=== PATIENT | female | born 2005 | race Caucasian/White ===

== ENCOUNTER 2024-04-19 17:27 | Emergency (ER) | payer MEDICAID, SELFPAY ==
[2024-04-19 17:33] VITALS: BP 131/79; PULSE 94; TEMP 37.1; O2SAT 100; BMI 25.5
--- NOTE | 2024-04-19 17:59 | ED_ITS ---
HPI HPI - General Adult General Chief complaint: Urogenital-Female Stated complaint: UTI BACK PAIN VOMITING Time Seen by Provider: 04/19/24 17:33 Source: patient and family (mother) Mode of arrival: walk-in Limitations: no limitations History of Present Illness HPI narrative: 18-year-old female presents to the emergency department with mother with complaint of nausea and vomiting. She was diagnosed with a urinary tract infection a couple weeks ago, has been on a couple rounds of antibiotics. She was taken off the first 1 due to nausea and vomiting, but has continued to have symptoms with the new antibiotic. States that he did notice some microscopic blood in the urine. She does have some mid, lower abdominal discomfort, as well as, bilateral lower back discomfort. Denies any known fever, chills, dysuria. Quality:?As above Severity:?Moderate Timing:?As above Context: Normal setting and activity? Modifying factors:?As above Associated symptoms: As above Related Data Previous Rx's ?Medication ?Instructions ?Recorded ondansetron 4 mg disintegrating 4 mg PO Q8H PRN nausea and 04/19/24 tablet vomiting #14 tabs Allergies Allergy/AdvReac Type Severity Reaction Status Date / Time No Known Drug Allergies Allergy Verified 04/19/24 17:36 Opioid HPI Opioid Management Most Recent Opioid Data: No Data to Display Review of Systems ROS Narrative CONST: Denies any fever, chills RESP: Denies any shortness of breath CV: Denies any chest pain GI: +abd pain, nausea, vomiting.? Denies any diarrhea : + flank pain. Denies dysuria MS: + back pain SKIN: Denies any color change, rash NEURO: Denies numbness, weakness PSYCHIATRIC: Denies confusion, agitation PFSH PFSH Social History Little interest or pleasure in doing things: not at all Feeling down, depressed, or hopeless: not at all Exam Narrative Exam Narrative: Vital signs reviewed Nurses notes noted CONST: Nontoxic, well appearing, well nourished, in no distress.? No diaphoresis.?? HENT: normocephalic, atraumatic, moist mucous membrane, no abnormalities of the nose noted, hearing normal EYES: normal appearing conjunctiva, no apparent discharge bilat NECK: normal appearance CV: normal rate, regular rhythm, no murmur RESP: normal effort, speaking in complete sentences. Lung sounds clear and equal bilat.? No wheezes, rales, rhonchi GI: normal bowel sounds, soft, no distension, + mild tenderness over the suprapubic region without rebound or guarding. : + bilat CVA tenderness. MS: no edema, tenderness SKIN: no pallor NEURO: A&Ox 3, no focal findings PSYCH: normal mood, affect Constitutional Vital Signs, click to edit/add: Last Vital Signs Temp 98.7 F 04/19/24 17:33 Pulse 94 H 04/19/24 17:33 Resp 16 04/19/24 17:33 BP 131/79 04/19/24 17:33 Pulse Ox 100 04/19/24 17:33 O2 Del Method Room Air 04/19/24 17:33 Course Reevaluation(s) Reevaluation #1: On reevaluation, patient states she is feeling better after treatment. After review of patient's test results, she denies any pelvic pain, vaginal bleeding, cramping. Discussed with patient plan, disposition. She is agreeable. Time: 19:50 Vital Signs Vital signs: Vital Signs Temperature 98.7 F 04/19/24 17:33 Pulse Rate 94 H 04/19/24 17:33 Respiratory Rate 16 04/19/24 17:33 Blood Pressure 131/79 04/19/24 17:33 Pulse Oximetry 100 04/19/24 17:33 Oxygen Delivery Method Room Air 04/19/24 17:33 Temperature 98.7 F 04/19/24 17:33 Pulse Rate 94 H 04/19/24 17:33 Respiratory Rate 16 04/19/24 17:33 Blood Pressure 131/79 04/19/24 17:33 Pulse Oximetry 100 04/19/24 17:33 Oxygen Delivery Method Room Air 04/19/24 17:33 Medical Decision Making MDM Narrative Medical decision making narrative: This is a pleasant 18-year-old female who presented to the emergency department with complaint of nausea and vomiting. Recent history of urinary tract infection. He has been on a couple different antibiotics, but worries that the antibiotics are causing the symptoms. States she has a little discomfort to the mid, lower abdominal region, as well as to her lower back. Denies any fever, chills, vaginal bleeding, dysuria. On arrival, afebrile, vital signs are stable. Exam, nontoxic, well-appearing patient in no distress. Heart regular rate and rhythm. Lung sounds clear and equal bilaterally. She has mild mid, lower abdominal tenderness without rebound or guarding. She also has some mild low back, CVA tenderness. IV access established, labs drawn, Labs reveal no leukocytosis, anemia, thrombocytopenia, electrolyte imbalance, renal impairment. LFTs, magnesium unremarkable. test was positive, subsequent quant was 52,040. Urinalysis reveals no evidence of infection, hematuria. Favor early undetermined , nausea, vomiting At this time, ectopic less likely as she does not have any pelvic pain, cramping, vaginal bleeding UTI less likely based on urinalysis History and record review Discussion with independent historian: Mother Test and interventions Diagnostic testing considered but not performed: Ultrasound. Patient reports no pelvic pain, contractions, vaginal bleeding Disposition ? The patient was discharged. Plan: Patient will be discharged to home. Condition at time of disposition: stable Prescription for Zofran sent to her pharmacy Advised to follow up with her reconciliation analyst, Dr. Leung. Advised to return for any worsening and/or development of new, concerning signs or symptoms PLEASE NOTE: Portions of the medical record may have been produced using electronic item processor and may contain errors with respect to translation of words which may not have been identified prior to finalization of the chart. Medical Records Medical records reviewed: Yes I reviewed the patient's medical records Lab Data Lab results reviewed: Yes I reviewed the patient's lab results Labs: Lab Results 04/19/24 04/19/24 04/19/24 Range/Units 17:40 17:54 17:55 WBC 7.1 (4.0-11.0) 10^3/uL RBC 4.30 (4.20-5.40) 10^6/uL Hgb 12.5 (12.0-16.0) g/dL Hct 37.8 (36.0-48.0) % MCV 87.9 (81.0-99.0) fL MCH 29.1 (26.7-34.0) pg MCHC 33.1 (29.9-35.2) g/dL RDW 12.8 (11.0-15.0) % Plt Count 200 (150-450) 10^3/uL MPV 11.2 (9.5-13.5) fL Neut % (Auto) 63.0 (43.0-75.0) % Lymph % (Auto) 26.8 (20.5-60.0) % [place] % (Auto) 8.8 (1.7-12.0) % Eos % (Auto) 0.4 L (0.9-7.0) % Baso % (Auto) 0.7 (0.2-2.0) % Neut # (Auto) 4.5 (1.4-6.5) 10^3/uL Lymph # (Auto) 1.9 (1.2-3.8) 10^3/uL [place] # (Auto) 0.6 (0.3-0.8) 10^3/uL Eos # (Auto) 0.0 (0.0-0.7) 10^3/uL Baso # (Auto) 0.1 (0.0-0.1) 10^3/uL Abs Immat Gran (auto) 0.02 (0.00-0.03) 10^3/uL Imm/Tot Granulo (auto) 0.3 (0.0-0.5) % Sodium 140 (136-145) mmol/L Potassium 3.6 (3.5-5.1) mmol/L Chloride 104 (98-107) mmol/L Carbon Dioxide 26.5 (21.0-32.0) mmol/L Anion Gap 13.1 BUN 6.0 L (7.0-18.0) mg/dL Creatinine 0.77 (0.55-1.02) mg/dL Est GFR ( Amer) >60 (>=60 mL/min/1.73m^2) Est GFR (Non-Af Amer) >60 (>=60 mL/min/1.73m^2) BUN/Creatinine Ratio 7.8 Glucose 90 (74-106) mg/dL Calcium 8.3 L (8.5-10.1) mg/dL Magnesium 2.0 (1.8-2.4) mg/dL Total Bilirubin 1.5 H (0.2-1.0) mg/dL AST 14 L (15-37) U/L ALT 18 (14-59) U/L Alkaline Phosphatase 76 (46-116) U/L Total Protein 7.2 (6.4-8.2) g/dL Albumin 3.5 (3.4-5.0) g/dL Globulin 3.7 g/dL Albumin/Globulin Ratio 0.9 Serum HCG, Qual Positive A (NEGATIVE) HCG, Quant 32332 mIU/mL Urine Color Lt. yellow (YELLOW) Urine Clarity Clear (CLEAR) Urine pH 7.5 (5.0-9.0) Ur Specific [place] 1.015 (1.005-1.025) Urine Protein Negative (NEG/TRACE) mg/dL Urine Glucose (UA) Negative (NEGATIVE) mg/dL Urine Ketones 15 A (NEGATIVE) mg/dL Urine Occult Blood Negative (NEGATIVE) Urine Nitrite Negative (NEGATIVE) Urine Bilirubin Negative (NEGATIVE) Urine Urobilinogen 1.0 (0.2-1.0) EU/dL Ur Leukocyte Esterase Negative (NEGATIVE) Urine RBC None seen (0-2) #/HPF Urine WBC None seen (NONE SEEN) #/HPF Ur Squamous Epith Cells Rare (NONE/RARE) #/LPF Ur Transition Epith Cell Rare A (NONE SEEN) #/LPF Urine Crystals None seen (None Seen) #/HPF Urine Bacteria Trace A (NONE SEEN) #/HPF Urine Casts None seen (NONE SEEN) #/LPF Urine Mucus None seen (NONE SEEN) Ur Culture Indicated? No Discharge Plan Discharge Chief Complaint: Urogenital-Female Clinical Impression: Early stage of Nausea and vomiting Qualifiers: Vomiting type: unspecified Qualified Code(s): R11.2 - Nausea with vomiting, unspecified Patient Disposition: Home, Self-Care Time of Disposition Decision: 19:46 Condition: Good Mode of Transportation: Private Vehicle Prescriptions / Home Meds: New ondansetron 4 mg tablet,disintegrating 4 mg PO Q8H PRN (Reason: nausea and vomiting) Qty: 14 0RF Print Language: Maori Instructions: (ED), Acute Nausea and Vomiting (ED) Referrals: Benji Leung DO [Physician] - 1 week Discharge Date/Time: 04/19/24 19:56
[2024-04-19 18:00] LABS: Basophils Absolute Auto 0.1 10^3/uL (0.0-0.1); Basophils Percent Auto 0.7 % (0.2-2.0); Eosinophils Percent Auto 0.4 % (0.9-7.0); Hematocrit 37.8 % (36.0-48.0); Hemoglobin 12.5 g/dL (12.0-16.0); Immature Granulocytes Abs Auto 0.02 10^3/uL (0.00-0.03); Immature Granulocytes Pct Auto 0.3 % (0.0-0.5); Lymphocytes Absolute Auto 1.9 10^3/uL (1.2-3.8); Lymphocytes Percent Auto 26.8 % (20.5-60.0); Mean Corpuscular HGB Conc 33.1 g/dL (29.9-35.2); Mean Corpuscular Hemoglobin 29.1 pg (26.7-34.0); Mean Corpuscular Volume 87.9 fL (81.0-99.0); Mean Platelet Volume 11.2 fL (9.5-13.5); Monocytes Absolute Auto 0.6 10^3/uL (0.3-0.8); Monocytes Percent Auto 8.8 % (1.7-12.0); Neutrophils Absolute Auto 4.5 10^3/uL (1.4-6.5); Platelet Count 200 10^3/uL (150-450); Red Cell Distribution Width 12.8 % (11.0-15.0); White Blood Count 7.1 10^3/uL (4.0-11.0)
[2024-04-19] MEDS: 0.9 % SODIUM CHLORIDE 1,000 ML 999 ML IV (18:08)
[2024-04-19] MEDS: FAMOTIDINE/PF 20 MG/2 ML VIAL IV (18:10)
[2024-04-19] MEDS: ONDANSETRON PF 4 MG/2 ML VIAL IV (18:10)
[2024-04-19 18:14] LABS: Bilirubin Urine NEGATIVE (NEGATIVE); Blood Urine NEGATIVE (NEGATIVE); Clarity Urine CLEAR (CLEAR); Color Urine LT. YELLOW (YELLOW); Glucose Urine UA NEGATIVE (NEGATIVE); Ketones Urine 15 mg/dL (NEGATIVE); Leukocyte Esterase Urine NEGATIVE (NEGATIVE); Nitrite Urine NEGATIVE (NEGATIVE); Protein Urine NEGATIVE (NEG/TRACE); Specific Gravity Urine 1.015 (1.005-1.025); pH Urine 7.5 (5.0-9.0)
[2024-04-19 18:20] LABS: HCG Qualitative POSITIVE (NEGATIVE); Internal Control Within Normal Limits
[2024-04-19 18:23] LABS: Alanine Aminotransferase 18 U/L (14-59); Albumin Globulin Ratio 0.9; Albumin Level 3.5 g/dL (3.4-5.0); Alkaline Phosphatase 76 U/L (46-116); Anion Gap 13.1; Aspartate Amino Transferase 14 U/L (15-37); BUN Creatinine Ratio 7.8; Bilirubin Total 1.5 mg/dL (0.2-1.0); Calcium 8.3 mg/dL (8.5-10.1); Carbon Dioxide 26.5 mmol/L (21.0-32.0); Chloride 104 mmol/L (98-107); Estimated GFR (African America >60 (>=60 mL/min/1.73m^2); Estimated GFR (Non-African Ame >60 (>=60 mL/min/1.73m^2); Globulin 3.7 g/dL; Glucose 90 mg/dL (74-106); Potassium 3.6 mmol/L (3.5-5.1); Sodium 140 mmol/L (136-145); Total Protein 7.2 g/dL (6.4-8.2)
[2024-04-19 18:25] LABS: Bacteria Urine TRACE #/HPF (NONE SEEN); Cast Seen? NONE SEEN #/LPF (NONE SEEN); Crystals Seen? None Seen #/HPF (None Seen); Mucus Urine NONE SEEN (NONE SEEN); RBC Urine NONE SEEN #/HPF (0-2); Squamous Epithelial Cell Urine RARE #/LPF (NONE/RARE); Transitional Epi Cells Urine RARE #/LPF (NONE SEEN); Urine Culture Indicated NO; WBC Urine NONE SEEN #/HPF (NONE SEEN)
[2024-04-19 19:17] LABS: HCG Quantitative 52040 mIU/mL
== END 2024-04-19 19:56 | disposition home or self-care (01) ==
PROVIDERS: Physician Assistant; Emergency Provider Emergency Medicine; PCP Nurse Practitioner Family
DX: O21.9 Vomiting of pregnancy, unspecified (principal); Z3A.00 Weeks of gestation of pregnancy not specified; Z87.440 Personal history of urinary (tract) infections
CPT/HCPCS: 36415; 80053; 81001; 83735; 84702; 84703; 85025; 96361; 96374; 96375; 99285; J2405

== ENCOUNTER 2024-05-14 17:43 | Emergency (ER) | payer MEDICAID, SELFPAY ==
[2024-05-14 17:47] VITALS: BP 122/74; PULSE 98; TEMP 36.7; O2SAT 100
--- OUTSIDE RECORDS SUMMARY | 2024-05-14 17:50 | XMS_ITS | CCD ---
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 Name Role Phone Morro Hauser Unavailable MORRO HAUSER Primary Care Physician DO Ravi Zhang Admit Provider WINNIE Hauser Primary Care Provider [phone]( [phone] DO Kt Pearson Other Provider DO Isaías Pan Other Provider MD Iman Gomez Other Provider MD Melo Diana Attending Provider MD Rayne Vitale Other Provider DR JOSÉ MIGUEL LAM V Consulting Unavailable MORRO HAUSER Primary Care Unavailable CARLITOS, DR VALVERDE Attending Unavailable CARLITOS, DR VALVERDE Admitting Unavailable DR BENJI LEUNG Consulting Unavailable WINNIE Hauser Primary Care Provider WINNEI Greenberg Emergency Provider [phone] Morro Hauser Primary Care Unavailable Samra Greenberg Attending Unavailable Samra Greenberg Admitting Unavailable Kt Pearson Consulting Unavailable Ravi Zhang Admitting UnavailMelo Kiser Attending Unavailab le Morro Hauser Primary Care Unavailable Isaías Pan Consulting Unavailable Iman Gomez Consulting Unavailable Rayne Vitale Consulting Unavailable Racheal Greenberg Unavailable Rupert Soriano Attending Unavailable Morro Hauser MD Unavailable SAMPSON AYALA Referring Unavailable SAMPSON AYALA Attending Unavailable RAYNE RIVERA Attending Unavailable RAYNE RIVERA Referring Unavailable SAMPSON AYALA Attending Unavailable SAMRA IRVIN Attending Unavailable Medications Current Medications Medication Drug Class(es) Dates Sig (Normalized) Sig (Original) ALPRAZolam 0.25 mg oral tablet (2 sources) Benzodiazepine take 1 tablet by mouth twice daily as needed Xanax 0.25 MG 1 tablet Orally Twice a day as needed Active azaTHIOprine (9 sources) Purine Antimetabolite Start: 01-07-2023 Azathioprine Active MG TABLET January 07, 2023 12:00am take 0.5 tablet by m outh once daily in the morning, then take 1 tablet by mouth at bedtime azaTHIOprine (Imuran) 100 MG tablet TAKE 1/2 (ONE-HALF) OF A TABLET BY MOUTH EVERY MORNING, and ONE TABLET AT BEDTIME, titrate up DIRECTED Diagnosis Unavailable Active drospirenone 3 mg / ethinyl estradiol 0.03 mg oral tablet (9 sources) Progestin, Estrogen Start: 12-26-2023 drospirenone-ethinyl estradiol (Di, Ocella) 3-0.03 MG tablet Indications: Uses control Take 1 tablet by mouth once daily 28 tablet 3 12/26/2023 Active Start: 01-07-2023 Drospirenone-E thinyl Estradiol Active TAB TABLET January 07, 2023 12:00am take 1 tablet by arcelia th once daily Drospirenone-Ethinyl Estradiol 3-0.03 MG TAKE 1 TABLET BY MOUTH EVERY DAY Oral for 28 Days Active escitalopram 20 mg oral tablet (10 sources) Serotonin Reuptake Inhibitor Start: 01-07-2023 Escitalopram Oxalate Active MG TABLET January 07, 2023 12:00am Start: 07-26-2022 escitalopram ( Lexapro) 20 MG tablet 1 (one) time each day at the same time. 07/26/2022 Active take 1 tablet by arcelia th every twenty-four hours Lexapro 10 MG 1 tablet Orally Once a day Active Ethinyl Estradiol / Ferrous fumarate / Norethindrone (2 sources) Estrogen Start: 04-16-2024 End: 04-16-2025 norethindrone-ethinyl estradiol (06/09) 1-20 MG-MCG tablet Indications: Encounter for surveillance of other contraceptive Take 1 tablet by mouth Daily 28 tablet 11 04/16/2024 04/16/2025 Active {7 (ethinyl estradiol 0.025 MG / norgestimate 0.18 MG Oral Tablet) / 7 (ethinyl estradiol 0.025 MG / norgestimate 0.215 MG Oral Tablet) / 7 (ethinyl estradiol 0.025 MG / norgestimate 0.25 MG Oral Tablet) / 7 (inert ingredients 1 MG Oral Tablet) } Pack (3 sources) Progestin, Estrogen Start: 09-13-2021 take 1 tablet by mouth every twenty-four hours Norgestim-Eth Estrad Triphasic 0.18/0.215/0.25 MG-25 MCG 1 tablet Orally Once a day for 28 day(s) Aug, Active fluticasone propionate 0.05 mg/actuat metered dose nasal spray (3 sources) Corticosteroid Start: 11-22-2021 take 1 spray(s) nasal route once daily Flonase Allergy Relief 50 MCG/ACT 1 spray in each nostril Nasally Once a day for 30 day(s) Nov, Active loratadine 10 mg oral tablet (3 sources) Start: 11-22-2021 take 1 tablet by mouth once daily Loratadine 10 MG 1 tablet Orally Once a day for 30 day(s) Nov, Active nitrofurantoin, macrocrystals 25 mg / nitrofurantoin, monohydrate 75 mg oral capsule (2 sources) Nitrofuran Antibacterial Start: 04-08-2024 End: 04-15-2024 take 1 capsule by mouth in the morning nitrofurantoin, macrocrystal-monohydrate, (Macrobid) 100 MG capsule Indications: Acute cystitis without hematuria Take 1 capsule (100 mg) by mouth in the morning and 1 capsule (100 mg) before bedtime. Do all this for 7 days. 14 capsule 04/08/2024 04/15/2024 Active valACYclovir 500 mg oral tablet (14 sources) Herpesvirus Nucleoside Analog DNA Polymerase Inhibitor, Herpes Simplex Virus Nucleoside Analog DNA Polymerase Inhibitor, Herpes Zoster Virus Nucleoside Analog DNA Polymerase Inhibitor Start: 12-26-2023 take 1 tablet by mouth once daily valACYclovir (Valtrex) 500 MG tablet Indications: HSV (herpes simplex virus) infection Take 1 tablet by mouth once daily 30 tablet 3 12/26/2023 Active Start: 01-07-2023 Valacyclovir A ctive MG TABLET January 07, 2023 12:00am Start: 06-09-2022 End: 01-07-2023 take 1000 mg by mouth three times daily Valacyclovir Discontinued 1000 MG PO Three times daily 30 5 June 09, 2022 1:00am January 07, 2023 11:16am take [address] [facility] every eight hours valACYclovir HCl 500 MG 2 tablets Orally three times a day Active Completed/Discontinued Medications Medication Drug Class(es) Dates Sig (Normalized) Sig (Original) acetaminophen 325 mg / HYDROcodone bitartrate 5 mg oral tablet (2 sources) Opioid Agonist Start: 01-28-2024 End: 02-11-2024 take 1-2 tablets by mouth every four hours for pain HYDROcodone-acetam inophen ([place]) 5-325 MG tablet Indications: Acute traumatic internal derangement of right knee, initial encounter Take 1-2 tablets by mouth every 4 (four) hours if needed for severe pain (surgical pain) for up to 7 days 20 tablet 01/28/2024 02/11/2024 Discontinued (Therapy completed) Ibuprofen (2 sources) Nonsteroidal Anti-inflammatory Drug Start: 06-02-2022 End: 01-07-2023 Ibuprofen Discontinued MG TABLET June 02, 2022 1:00am January 07, 2023 11:16am Start: 06-02-2022 Ibuprofen Acti ve MG TABLET June 02, 2022 12:00am metroNIDAZOLE 250 mg oral tablet (2 sources) Nitroimidazole Antimicrobial Start: 06-02-2022 End: 06-09-2022 Metronidazole (Flagyl) 250 mg Tablet Discontinued MG TABLET June 02, 2022 1:00am June 09, 2022 3:36pm polyethylene glycol 3350 80347 mg powder for oral solution (2 sources) Osmotic Laxative Start: 06-09-2022 End: 01-07-2023 Polyethylene Glycol 3350 (Miralax) 17 gram Powder In Packet Discontinued 17 GM PO Daily June 09, 2022 1:00am January 07, 2023 11:16am Problems Active Problems Problem Classification Problem Date Documented Date Episodic/Chronic Anxiety disorders (5 sources) Anxiety; Translations: [Anxiety disorder, unspecified] Chronic Contraceptive and procreative management (3 sources) Encounter for initial prescription of contraceptive pills; Translations: [Contraception ] Onset: 09-13-2021 Resolved: 09-13-2021 Episodic Encephalitis (except that caused by tuberculosis or sexually transmitted disease) (9 sources) 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; 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] Onset: 06-02-2022 06-06-2022 Episodic Genitourinary symptoms and ill-defined conditions (11 sources) Acute retention of urine ; Translations: [Other retention of urine] Onset: 06-02-2022 06-02-2022 Episodic Menstrual disorders (8 sources) Dysmenorrhea; Translations: [Dysmenorrhea, unspecified] Onset: 11-22-2021 Resolved: 11-22-2021 Chronic Other aftercare (1 source) Encounter for follow-up examination after completed treatment for conditions other than malignant neoplasm Episodic Other bone disease and musculoskeletal deformities (8 sources) Idiopathic scoliosis; 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, 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 Other connective tissue disease (8 sources) Swelling of finger ; Translations: [Other specified soft tissue disorders] Episodic Other connective tissue disease (1 source) Other specified soft tissue disorders; Translations: [Other specified soft tissue disorders] Onset: 01-07-2023 Episodic Other female genital disorders (1 source) Noninflammatory disorder of the vagina; Translations: [Other specified noninflammatory disorders of vagina] Onset: 05-24-2022 Episodic Other female genital disorders (2 sources) Vaginal discharge; Translations: [Other specified noninflammatory disorders of vagina] 06-04-2022 Episodic Other female genital disorders (4 sources) Other noninflammatory disorders of ovary, fallopian tube and broad ligament; Translations: [OTH NONINFL D/O OVARY TUBE AND BRD LIG] Onset: 07-03-2022 Episodic Other nervous system disorders (4 sources) Demyelinating disease of central nervous system; Translations: [Other specified demyelinating diseases of central nervous system] Onset: 05-22-2022 Chronic Other nervous system disorders (1 source) Disorder of the central nervous system; Translations: [Disorder of brain, unspecified] 06-13-2022 Chronic Other nervous system disorders (2 sources) Paresthesia of lower extremity; Translations: [Paresthesia of skin] 06-02-2022 Episodic Other upper respiratory infections (2 sources) Acute pharyngitis, unspecified; Translations: [Acute upper respiratory infection, unspecified] Episodic Residual codes; unclassified (4 sources) Urinary catheter in situ; Translations: [Presence of other specified devices] Episodic Residual codes; unclassified (1 source) Presence of other specified devices Episodic Residual codes; unclassified (2 sources) History of arthroscopy of knee joint; Translations: [Other specified postprocedural states] 02-14-2024 Episodic Sprains and strains (2 sources) Sprain of ankle; Translations: [Sprain of unspecified ligament of unspecified ankle, initial encounter] Onset: 10-28-2023 01-07-2023 Episodic Urinary tract infections (2 sources) Acute cystitis; Translations: [Acute cystitis without hematuria] 04-08-2024 Episodic Viral infection (4 sources) Herpetic vulvovaginitis; 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] Onset: 06-02-2022 06-04-2022 Chronic Past or Other Problems Problem Classification Problem Date Documented Date Episodic/Chronic E Codes: Adverse effects of medical drugs (4 sources) Metronidazole adverse reaction; Translations: [Adverse effect of other specified systemic anti-infectives and antiparasitics, initial encounter] Onset: 06-02-2022 06-02-2022 Episodic Inflammatory diseases of female pelvic organs (4 sources) Ulceration of vulva; Translations: [Ulceration of vulva] Onset: 06-02-2022 06-04-2022 Episodic Other connective tissue disease (1 source) Myalgia, unspecified site Onset: 01-05-2022 Resolved: 01-05-2022 Episodic Other female genital disorders (2 sources) Other specified noninflammatory disorders of vagina; Translations: [Leukorrhea, not specified as infective] Onset: 06-02-2022 06-09-2022 Episodic Other nervous system disorders (2 sources) Paresthesia of skin; Translations: [Disturbance of skin sensation] Onset: 06-02-2022 06-09-2022 Episodic Otitis media and related conditions (1 source) Acute and subacute allergic otitis media (mucoid) (sanguinous) (serous), unspecified ear Onset: 11-22-2021 Resolved: 11-22-2021 Episodic Unclassified (1 source) Exposure to COVID-19 virus Z20.822 Onset: 11-24-2021 Resolved: 11-24-2021 Unclassified (1 source) Exposure to 2019 novel coronavirus; Translations: [Contact with and (suspected) exposure to COVID19] Viral infection (20 sources) Herpes simplex type 2 infection; 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, unspecified] Onset: 06-02-2022 06-06-2022 Episodic Results Test Name Value Interpretation Reference Range Facility Laboratory - Chemistry and C hemistry - challengeon 04-08-2024 Bilirubin Ql (U) 1+ Negative [facility] Glucose [Mass/Vol] Negative Negative [facility] Ketones Ql (U) Negative Negative [facility] pH (U) 7 [pH] 5.0 - 6.0 [facility] Specific gravity (U) [Rel density] 1.015 1.001 - 1.035 [facility] Laboratory - Hematology and Cell countson 04-08-2024 Hemoglobin Ql (U) + Negative [facility] Laboratory - Urinalysison Nitrite Ql (U) Negative Negative [facility] Protein Ql (U) 1+ Negative [facility] No Panel Informationon 04-08 Interpretation and review of laboratory results Abnormal [facility] LEUKOCYTES 1+ Negative [facility] UROBILINOGEN 2+ 0.2 - 1.0 [facility] ED Note-Physicianon 10-29-19 ED Note-Physician Basic Information Time Seen: Corinne VENTURA, Alejandra English. 10/28/2023 11:24 Chief Complaint c/o right knee pain and swelling after bending down a month ago and hearing a snap. History of Present Illness Patient presents emergency department chief complaint of ongoing right knee pain. Patient states a month ago she bent over to pick something up and heard a pop in her knee. She has been having swelling and discomfort since then. She came today to be evaluated. She has not been evaluated previously for this injury. She denies any reinjury recently. Review of Systems Constitutional: Denies weight loss, fevers, chills, sweats, malaise Eyes: Denies visual changes, eye pain, double vision, scotomas, floaters ENT: Denies runny nose, epistaxis, sinus pain, ear pain, ringing in ears, tooth ache, sore throat, pain with swallowing Cardiovascular: Denies chest pain, shortness of breath, orthopnea, edema, palpitations, loss of consciousness, claudication Respiratory: Denies cough, sputum production, wheezing, hemoptysis, shortness of breath, dyspnea on exertion Gastrointestinal: Denies abdominal pain, unintentional weight loss, difficulty swallowing, indigestion, bloating, cramping, loss of appetite, nausea, vomiting, diarrhea, constipation, hematochezia, melena Genitourinary: Denies any incontinence of urine, dysuria, hematuria, nocturia, polyuria, hesitancy, frequency, urgency, burning Musculoskeletal: Denies joint pain, morning stiffness, joint swelling, decreased range of motion, crepitus. + R knee pain Integumentary: Denies any pruritus, rashes, lesions, wounds, petechiae Neurologic: Denies any changes in sight, smell, hearing, taste, seizures, headache, paresthesia, numbness, weakness, balance disturbance Psychiatric denies any depression, change in sleep patterns, anxiety, difficulty concentrating, paranoia, anhedonia, lack of energy, raymundo Hematologic/lymphatic: Denies any purpura, petechiae, excessive bleeding, bruising Physical Exam Vitals & Measurements T: 36.9 ?C(Oral) HR: 95(Peripheral) RR: 16 BP: 131/73 SpO2: 100% HT: 180 cm WT: 86.2 kg BMI: 26.6 Vital Signs reviewed and noted. General: Alert, no acute distress, patient resting comfortably Skin: warm, intact, no pallor noted Head: Normocephalic, atraumatic Eye: Normal conjunctiva Cardiac: Normal peripheral perfusion Respiratory: No acute distress Musculoskeletal: No deformity, full ROM. Patient has mild edema to the inferior lateral aspect. There is no crepitus. There is no laxity of the joint. There is some mild tenderness on palpation in the area of the edema. Distal neurovascular is intact. Neurological: alert and oriented, normal sensory and motor observed. Psychiatric: Cooperative Medical Decision Making MEDICAL DECISION MAKING Number and Complexity of Problems Differential Diagnosis: Contusion, sprain, strain, fracture, dislocation MDM Data External documents reviewed: Not applicable My EKG interpretation: Noted in chart if applicable My CT interpretation: Noted in chart if applicable My X-ray interpretation: Noted in chart if applicable My Ultrasound interpretation: Not applicable Decision rules/scores evaluated: Noted in chart if applicable Discussed with: Not applicable Treatment and Disposition ED Course: Patient was interviewed and examined. The appropriate ER workup was initiated. Patient plain film x-rays without any acute injuries. I had a long discussion with the patient regarding her workup. I discussed with her she needs to have close follow-up with orthopedics, and may ultimately require MRI imaging. I discussed with the patient that we would place her in a knee immobilizer and provide her with crutches. The patient was in agreement with the plan of care. Patient will be discharged home in stable condition. She is to follow-up with orthopedics. She is to return to the emergency department for any further problems or concerns. Shared decision making: I discussed the discharge diagnosis and plan of care with the patient. She is in agreement with plan of care. Code status: Not applicable Assessment/Plan 1. Strain of right knee (S86.911A: Strain of unspecified muscle(s) and tendon(s) at lower leg level, right leg, initial encounter) Orders: Crutch Training Crutches Immobilizer XR Knee Complete 4+ Views Right Disposition Plan Patient Discharge Condition Stable Discharge Disposition Home Discharge Prescription List Prescriptions No active prescription medications Follow-up With When Contact Information Rayne Rivera In 3 days 10/31/2023 EDT [address] [place] [address]- [employer] (1) Additional Instructions: MORRO HAUSER In 3 days [address] [place] [address]- [phone] Business (1) Additional Instructions: Patient Education Knee Sprain, Adult How to Use a Knee Immobilizer Radial Nerve Palsy Crutch Use, Adult, Yctt-ve-Plgs Attestation I performed a subst (more content not included)... [facility] Comment on above: Result Comment: Elec tronically Signed By: Alejandra Sun PA-C\.br\Date and Time Signed: 10/28/23 16:45 EDT\.br\Electronically Co-Signed By: Rupert Soriano DO\.br\Date and Time Co-Signed: 10/29/23 08:08 EDT Consent for Treatmenton Consent for Treatment [id number] [facility] Discharge Instructionson Discharge Instructions [id number] [facility] ED Clinical Summaryon 2023 ED Clinical Summary (Inserted Image. Judith ble to display) [address] [address] ED Clinical Summary Person Information Name: HEENA WANG [place] Age: 18 Years : 2005 Sex: Female Language: Lithuanian PCP: MORRO HAUSER CNP Marital Status: Single Visit Id: Visit Reason: Knee pain-swelling; RT KNEE PAIN Speciality: Acuity: 4 Enc Type: Emergency Med Service: Emergency Arrival: 10/28/2023 11:07:53 Discharge: 10/28/2023 12:34:00 LOS: 000 01:27 Checkin: 10/28/2023 11:07:53 Checkout: 10/28/2023 12:34:00 Dispo Type: Home (Routine DC) EVENTS: Event Name Event Status Request Date/Time Start Date/Time Complete Date/Time Arrive Complete 10/28/2023 11:07:53 10/28/2023 11:07:53 10/28/2023 11:07:53 Document Home Meds Request 10/28/2023 11:07:53 Triage Complete 10/28/2023 11:07:53 10/28/2023 11:28:25 10/28/2023 11:28:25 Registration Complete 10/28/2023 11:10:24 10/28/2023 11:10:24 10/28/2023 11:10:24 Reg Complete Request 10/28/2023 11:10:24 Reg Bed Request Complete 10/28/2023 11:10:24 10/28/2023 11:10:24 10/28/2023 11:10:24 Bed Assign Complete 10/28/2023 11:21:06 10/28/2023 11:21:06 10/28/2023 11:21:06 Dr Exam Complete 10/28/2023 11:21:06 10/28/2023 11:24:14 10/28/2023 11:24:14 RN Exam Complete 10/28/2023 11:21:06 10/28/2023 12:19:24 10/28/2023 12:19:24 Registration Request 10/28/2023 11:24:14 X-Ray Complete 10/28/2023 11:24:51 10/28/2023 11:28:11 10/28/2023 11:39:24 Dr Exam Complete 10/28/2023 11:28:17 10/28/2023 11:28:17 10/28/2023 11:28:17 Wet Read Complete 10/28/2023 11:39:24 10/28/2023 11:40:43 10/28/2023 11:40:43 Patient Care Request 10/28/2023 12:10:44 Discharge Complete 10/28/2023 12:12:01 10/28/2023 12:35:22 10/28/2023 12:35:22 Transfer Complete 10/28/2023 12:35:22 10/28/2023 12:35:22 10/28/2023 12:35:22 ADDRESS: [address] [place] [id number] PHYS DOC NOTES: MEDICAL INFORMATION: Prescriptions Given: PATIENT EDUCATION INFORMATION: Instructions: Knee Sprain, Adult; How to Use a Knee Immobilizer; Radial Nerve Palsy; Crutch Use, Adult, [id number] Follow up: With: Address: When: Rayne Rivera [address] [place], [place] [id number] Business (1) In 3 days 10/31/2023 With: Address: When: MORRO [address] [address] [phone] [employer] (1) In 3 days DIAGNOSIS: 1:Strain of right knee [facility] ED Patient Education Noteon 10-28-2023 ED Patient Education Note Orthopedics Knee Sprain, Adult A knee sprain is a stretch or tear in a knee ligament. Knee ligaments are tissues that connect bones in the knee to each other. What are the causes? This condition often results from: ? A fall. ? An injury to the knee. What are the signs or symptoms? Symptoms of this condition include: ? Trouble straightening or bending the leg. ? Swelling in the knee. ? Bruising around the knee. ? Tenderness or pain in the knee. ? Muscle spasms around the knee. How is this diagnosed? This condition may be diagnosed based on: ? A physical exam. ? A history of what happened just before you started to have symptoms. ? Tests, including: ? An X-ray. This may be done to make sure no bones are broken. ? An MRI. This may be done to check if the ligament is torn. ? Stress testing of the knee. This may be done to check ligament damage. How is this treated? Treatment for this condition may involve: ? Keeping the knee still (immobilized) with a cast, brace, or splint. ? Applying ice to the knee. This helps with pain and swelling. ? Raising (elevating) the knee above the level of your heart when you are resting. This helps with pain and swelling. ? Taking medicine for pain. ? Doing exercises to prevent or limit permanent weakness or stiffness in your knee. ? Having surgery to reconnect the ligament to the bone or to reconstruct it. This may be needed if the ligament is completely torn. Follow these instructions at home: If you have a splint or brace: ? Wear it as told by your health care provider. Remove it only as told by your health care provider. ? Check the skin around it every day. Tell your health care provider about any concerns. ? Loosen it if your toes tingle, become numb, or turn cold and blue. ? Keep it clean and dry. If you have a cast: ? Do not stick anything inside it to scratch your skin. Doing that increases your risk of infection. ? Check the skin around it every day. Tell your health care provider about any concerns. ? You may put lotion on dry skin around the edges of the cast. Do not put lotion on the skin underneath the cast. ? Keep it clean and dry. Bathing If you have a splint, brace, or cast that is not waterproof: ? Do not let it get wet. ? Cover it with a watertight covering when you take a bath or a shower. Managing pain, stiffness, and swelling ? If directed, put ice on the injured area. To do this: ? If you have a removable splint or brace, remove it as told by your health care provider. ? Put ice in a plastic bag. ? Place a towel between your skin and the bag or between your cast and the bag. ? Leave the ice on for 20 minutes, 2?3 times a day. ? Move your toes often to reduce stiffness and swelling. ? Elevate the injured area above the level of your heart while you are sitting or lying down. General instructions ? Take [id number]-ysuwgep and prescription medicines only as told by your health care provider. ? Do not use any products that contain nicotine or tobacco, such as cigarettes, e-cigarettes, and chewing tobacco. These can delay healing. If you need help quitting, ask your health care provider. ? Do exercises as told by your health care provider. ? Keep all follow-up visits as told by your health care provider. This is important. Contact a health care provider if: ? You have pain that gets worse. ? The cast, brace, or splint does not fit right. ? The cast, brace, or splint gets damaged. Get help right away if: ? You cannot use your injured knee to support any of your body weight (cannot bear weight). ? You cannot move the injured joint. ? You cannot walk more than a few steps without pain or without your knee buckling. ? You have significant pain, swelling, or numbness in the leg below the cast, brace, or splint. ? Your foot or toes are numb, cold, or blue after loosening your splint or brace. Summary ? A knee sprain is a stretch or tear in a knee ligament that usually occurs as the result of a fall or injury. ? Treatment may involve immobilizing the knee with a cast, splint, or brace and then doing exercises. ? If the ligament is completely torn, it may require surgery to repair or replace the injured ligament. This information is not intended to replace advice given to you by your health care provider. Make sure you discuss any questions you have with your health care provider. Document Revised: 08/14/2022 Document Reviewed: 03/26/2020 [employer] Patient Education ? 2022 [employer] How to Use a Knee Immobilizer A knee immobilizer is a device used to support and protect an injured or painful knee. You may also have to wear it after knee surgery. A knee immobilizer keeps your knee from moving or bending while it is healing. Wear the immobilizer as told by your health care provider. Remove it only as told by your (more content not included)... [facility] ED Patient Summaryon 024 ED Patient Summary (Inserted Image. Judith ble to display) [facility] [address], [place] [address] Patient Discharge Instructions Person Information Name: HEENA WANG Age: 18 Years Arrival Date: 10/28/2023 11:07:53 Discharge Diagnosis: 1:Strain of right knee Primary Care Physician: MORRO HAUSER CNP Provider Information Primary Provider: Rupert Soriano DO Advanced Engine Assembler:None The exam and treatment you received in the Emergency Department were for an urgent problem and are not intended as complete care. It is important that you follow up with a doctor, nurse practitioner, or physician?s customer service assistant for ongoing care. If your symptoms become worse or you do not improve as expected and you are unable to reach your usual health care provider, you should return to the Emergency Department. We are available 24 hours a day. HEENA WANG has been given the following list of patient education materials, prescriptions and follow-up instructions: Follow-up Instructions: With: Address: When: Rayne Rivera [address], [place] [id number] Business (1) In 3 days 10/31/2023 With: Address: When: MORRO HAUSER [address] [place] [phone] [facility] (1) In 3 days In the event that this physician does not participate in your insurance network, please consult with your insurance company to find a nearby participating provider. Patient Education Materials: Knee Sprain, Adult; How to Use a Knee Immobilizer; Radial Nerve Palsy; Crutch Use, Adult, Cbiq-ig-Ujuf A MESSAGE TO ALL PATIENTS REGARDING OPIOIDS PRESCRIPTION OPIOIDS: WHAT YOU NEED TO KNOW Prescription opioids can be used to help relieve bzcckftm-ez-kejhxg pain and are often prescribed following a surgery or injury, or for certain health conditions. These medications can be an important part of the treatment but also come with serious risks. It is important to work with your healthcare provider to make sure you are getting the safest, most effective care. WHAT ARE THE RISKS AND SIDE EFFECTS OF OPIOID USE? Prescription opioids carry serious risks of addiction and overdose, especially with prolonged use. An opioid overdose, often marked by slowed breathing, can cause sudden . The use of prescription opioids can have a number of side effects as well, even when taken as directed: ? Tolerance?meaning you might need to take more of the medication for the same pain relief ? Physical dependence?meaning you have symptoms of withdrawal when a medication is stopped ? Increased sensitivity to pain ? Constipation ? Nausea, vomiting, and dry mouth ? Sleepiness and dizziness ? Confusion ? Depression ? Low levels of testosterone that can result in lower sex drive, energy, and strength ? Itching and sweating RISKS ARE GREATER WITH: ? History of drug misuse, substance use disorder, or overdose ? Mental health conditions (such as depression or anxiety) ? Sleep apnea ? Older age (65 years and older) ? Avoid alcohol while taking prescription opioids. Also, unless specifically advised by your health care provider, medications to avoid include: ? Benzodiazepines (such as Xanax or Valium) ? Muscle relaxants (such as Soma or Flexeril) ? Hypnotics (such as Ambien or Lunesta) ? Other prescription opioids KNOW YOUR OPTIONS Talk to your health care provider about ways to manage your pain that don?t involve prescription opioids. Some of these options may actually work better and have fewer risks and side effects. Options may include: ? Pain relievers such as acetaminophen, ibuprofen, and naproxen ? Some medication that are also used for depression or seizures ? Physical therapy and exercise ? Cognitive behavioral therapy, a psychological, goal-directed approach, in which patients learn how to modify physical, behavioral, and emotional triggers of pain and stress. IF YOU ARE PRESCRIBED OPIOIDS FOR PAIN: ? Never take opioids in greater amounts or more often than prescribed. ? Follow up with your primary health care provider. o Work together to create a plan on how to manage your pain. o Talk about ways to help manage your pain that don?t involve prescription opioids. o Talk about any and all concerns and side effects. ? Help prevent misuse and abuse o Never sell or share prescription opioids. o Never use another person?s prescription opioids. ? Store prescription opioids in a secure place and out of reach of others (this may include visitors, children, friends, and family). ? Safely dispose of unused prescription opioids: Find your community drug take-back program or your pharmacy mail-back program, or flush them down the toilet, following guidance from the Food and Drug Administration (www.fda.gov/Drugs/Resour cesForYou). ? Visit www.cdc.gov/drugoverdose to learn about the risks of opioids abuse and overdose. ? If y (more content not included)... [facility] XR Knee Complete 4+ Views Mónica puri 10-28-2023 XR Knee Complete 4+ Views Right Exam Date/Time: 10/28/2023 11:39 EDT Reason for Exam: Pain, Traumatic Report IMPRESSION: NEGATIVE RIGHT KNEE. CLINICAL HISTORY: Pain, Traumatic COMPARISON: NONE. FINDINGS: 4 views of the right knee demonstrate no evidence of a fracture, dislocation, bone or joint abnormality. Ordering Provider: Alejandra Sun FINAL REPORT Dictated: 10/28/2023 11:55 am Viktor Novoa MD Signed (Electronic Signature): 10/28/2023 11:55 am Signed by: Viktor Novoa MD Transcribed by: NORMA Technologist: AMANDA Technical Comments Radiation Dose: Ka,r in mGy = na DAP = na [facility] Quick Strepon 03-02-2023 S. pyogenes Org specific cx Ql (Throat) Negative [facility] Other Quick Strep [facility] Other XR ankle LT min 3V*on 2022 XR ankle LT min 3V* [facility] [place] [address] [place] [address] XRay Report Signed Patient: Heena Wang MR#: [id number] 5 : 2005 Acct:[id number] Age/Sex: 17 / F ADM Date: 01/07/23 Loc: ER Room: Type: [facility] ER Attending Dr: Copies to: Samra Greenberg APRN Ordering Provider: Samra Greenberg APRN Date of Service: 01/07/23 XR/XR ankle LT min 3V*: Extremity Injury, Lower 3 views left ankle plain film COMPARISON: None HISTORY: Left ankle swelling. No injury ACUTE FINDINGS: None DEGENERATIVE CHANGE: Unremarkable SOFT TISSUE FINDINGS: Mild soft tissue swelling JOINT EFFUSION: None POSTOP CHANGES: None BONE MINERALIZATION: Adequate XR/XR ankle LT min 3V* IMPRESSION: No acute findings. Impression dictated by: Jamie Wheatley M.D.01/07/2023 12:06 PM Dictation Location: [place] [address] Transcribed By: [facility] 01/07/231205 Dictated By: Jamie Wheatley DO 01/07/231204 Signed By: 01/07/23 120 Normal [facility] US PELVISon 07-03-2022 US PELVIS EXAMINATION: US PELV IS HISTORY: Noninflammatory disorder of the female genital organs COMPARISON: No relevant comparison available. FINDINGS: Transabdominal only, the patient declined transvaginal imaging The uterus is anteverted. Uterus is normal in size, contour and echotexture measuring 7.4 x 6.2 x 4.0 cm. No focal myometrial mass The endometrium measures 2 mm, normal. The right ovary is normal in size, contour and echotexture measuring 3.4 x 2 0.5 to 1.6 cm. Normal color and Doppler flow The left ovary is normal in size, contour and echotexture measuring 2.5 x 2.4 x 1.9 cm. Normal color and Doppler flow No free fluid Large amount of bowel gas limits exam IMPRESSION: Normal transabdominal exam Electronically authenticated by: JOSÉ MIGUEL LAM Date: 2022-07-03 16:20 Normal [facility] Basic Metabolic Panelon 05-22 Anion gap [Moles/Vol] 11.8 mmol/L Normal 6.0-15.0 [facility] Comment on above: Performed By: #### C SFCCDIFF, CSF TP, CSF TP #2, CSFCCDIFF #2, CSF PCR PANEL, GS, AERC, CSF GLU, CSF GLU #2 #### [facility] [address] [place] [address] Calcium [Mass/Vol] 8.3 mg/dL Normal 8.2-10.2 [facility] Comment on above: Performed By: #### C SFCCDIFF, CSF TP, CSF TP #2, CSFCCDIFF #2, CSF PCR PANEL, GS, AERC, CSF GLU, CSF GLU #2 #### [facility] [address] Chloride [Moles/Vol] 98 mmol/L Normal 95-114 [facility] Comment on above: Performed By: #### C SFCCDIFF, CSF TP, CSF TP #2, CSFCCDIFF #2, CSF PCR PANEL, GS, AERC, CSF GLU, CSF GLU #2 #### [facility] [address] CO2 [Moles/Vol] 26.2 mmol/L Normal 22.0-30.0 [facility] Comment on above: Performed By: #### C SFCCDIFF, CSF TP, CSF TP #2, CSFCCDIFF #2, CSF PCR PANEL, GS, AERC, CSF GLU, CSF GLU #2 #### [address] Creatinine [Mass/Vol] 0.61 mg/dL Normal 0.44-1.[address] [facility] Comment on above: Performed By: #### C SFCCDIFF, CSF TP, CSF TP #2, CSFCCDIFF #2, CSF PCR PANEL, GS, AERC, CSF GLU, CSF GLU #2 #### [address] Creatinine Clr Calc Pharmacy 181.95 [facility] Comment on above: Result Comment: PERF ORMED BY: [place] [address] PATHOLOGIST PIGMENT PRESSER SUMEET GONZALEZ M.D. Performed By: #### C SFCCDIFF, CSF TP, CSF TP #2, CSFCCDIFF #2, CSF PCR PANEL, GS, AERC, CSF GLU, CSF GLU #2 #### [address] Estimated GFR ( Jannet > 60 [facility] Comment on above: Result Comment: GFR estimated reference range: According to KDOQI guidelines, <60 ml/min/1.73m2 is sufficient to diagnose a patient with chronic kidney disease. Performed By: #### C SFCCDIFF, CSF TP, CSF TP #2, CSFCCDIFF #2, CSF PCR PANEL, GS, AERC, CSF GLU, CSF GLU #2 #### [facility] [address] Estimated GFR (Non- Am > 60 Normal [facility] Comment on above: Performed By: #### C SFCCDIFF, CSF TP, CSF TP #2, CSFCCDIFF #2, CSF PCR PANEL, GS, AERC, CSF GLU, CSF GLU #2 #### [facility] [address] Glucose [Mass/Vol] 97 mg/dL Normal 70-100 [facility] Comment on above: Result Comment: [facility] Glucose Reference Range is dependent on time and content of last meal. Glucose of more than 200 mg/dL in a nonstressed, ambulatory subject supports the diagnosis of Diabetes Mellitus. ADA recommended reference range Performed By: #### C SFCCDIFF, CSF TP, CSF TP #2, CSFCCDIFF #2, CSF PCR PANEL, GS, AERC, CSF GLU, CSF GLU #2 #### [facility] [address] Potassium [Moles/Vol] 4.0 mmol/L Normal 3.5-5.[address] [facility] Comment on above: Performed By: #### C SFCCDIFF, CSF TP, CSF TP #2, CSFCCDIFF #2, CSF PCR PANEL, GS, AERC, CSF GLU, CSF GLU #2 #### [facility] [address] [place] [address] [place] Sodium [Moles/Vol] 132 mmol/L Low 136-146 [facility] Comment on above: Performed By: #### C SFCCDIFF, CSF TP, CSF TP #2, CSFCCDIFF #2, CSF PCR PANEL, GS, AERC, CSF GLU, CSF GLU #2 #### [facility] [address] Urea nitrogen [Mass/Vol] 11 mg/dL Normal 9-23 [facility] Comment on above: Performed By: #### C SFCCDIFF, CSF TP, CSF TP #2, CSFCCDIFF #2, CSF PCR PANEL, GS, AERC, CSF GLU, CSF GLU #2 #### [place] [address] [place] Basophils Auto (Bld) [#/Vol] Ordered By: Melo Diana on 06-09-2022 Basophils (Bld) [#/Vol] 0.0 10*3/uL 0.0-0.2 [facility] Basophils/100 WBC Auto (Bld) Ordered By: Melo Diana on 06-09-2022 Basophils/100 WBC (Bld) 0.1 % . [facility] Complete Blood Count Auto Di ffon 06-09-2022 Basophils (Bld) [#/Vol] 0.0 10*3/uL Normal 0.0-0.2 [facility] Comment on above: Result Comment: PERF ORMED BY: [place] [address] PATHOLOGIST PIGMENT PRESSER SUMEET GONZALEZ M.D. Performed By: #### C SFCCDIFF, CSF TP, CSF TP #2, CSFCCDIFF #2, CSF PCR PANEL, GS, AERC, CSF GLU, CSF GLU #2 #### [place] [address] [place] Basophils/100 WBC (Bld) 0.1 % Normal . [facility] Comment on above: Performed By: #### C SFCCDIFF, CSF TP, CSF TP #2, CSFCCDIFF #2, CSF PCR PANEL, GS, AERC, CSF GLU, CSF GLU #2 #### [place] [address] [place] Eosinophils (Bld) [#/Vol] 0.0 10*3/uL Normal 0.0-0.45 [facility] Comment on above: Performed By: #### C SFCCDIFF, CSF TP, CSF TP #2, CSFCCDIFF #2, CSF PCR PANEL, GS, AERC, CSF GLU, CSF GLU #2 #### [place] [address] [place] Eosinophils/100 WBC (Bld) 0.0 % Normal . [facility] Comment on above: Performed By: #### C SFCCDIFF, CSF TP, CSF TP #2, CSFCCDIFF #2, CSF PCR PANEL, GS, AERC, CSF GLU, CSF GLU #2 #### [facility] [address] Erythrocyte distribution width (RBC) [Ratio] 13.3 % Normal 11.9-15.3 [facility] Comment on above: Performed By: #### C SFCCDIFF, CSF TP, CSF TP #2, CSFCCDIFF #2, CSF PCR PANEL, GS, AERC, CSF GLU, CSF GLU #2 #### [address] Hematocrit (Bld) [Volume fraction] 36.1 % Normal 34.0-46.4 [facility] Comment on above: Performed By: #### C SFCCDIFF, CSF TP, CSF TP #2, CSFCCDIFF #2, CSF PCR PANEL, GS, AERC, CSF GLU, CSF GLU #2 #### [address] Hemoglobin (Bld) [Mass/Vol] 12.1 g/dL Normal 11.8-15.4 [facility] Comment on above: Performed By: #### C SFCCDIFF, CSF TP, CSF TP #2, CSFCCDIFF #2, CSF PCR PANEL, GS, AERC, CSF GLU, CSF GLU #2 #### [place] [address] [place] Lymphocytes (Bld) [#/Vol] 1.6 10*3/uL Normal 1.00-4.8 [facility] Comment on above: Performed By: #### C SFCCDIFF, CSF TP, CSF TP #2, CSFCCDIFF #2, CSF PCR PANEL, GS, AERC, CSF GLU, CSF GLU #2 #### [address] Lymphocytes/100 WBC (Bld) 16.1 % Normal . [facility] Comment on above: Performed By: #### C SFCCDIFF, CSF TP, CSF TP #2, CSFCCDIFF #2, CSF PCR PANEL, GS, AERC, CSF GLU, CSF GLU #2 #### [facility] [address] MCH (RBC) [Entitic mass] 29.4 pg Normal 24.7-34.3 [facility] Comment on above: Performed By: #### C SFCCDIFF, CSF TP, CSF TP #2, CSFCCDIFF #2, CSF PCR PANEL, GS, AERC, CSF GLU, CSF GLU #2 #### [facility] [address] MCV (RBC) [Entitic vol] 87.8 fL Normal 80-100 [facility] Comment on above: Performed By: #### C SFCCDIFF, CSF TP, CSF TP #2, CSFCCDIFF #2, CSF PCR PANEL, GS, AERC, CSF GLU, CSF GLU #2 #### [address] Mean Corpuscular HGB Conc 33.5 g/dL Normal 32.0-35.0 [facility] Comment on above: Performed By: #### C SFCCDIFF, CSF TP, CSF TP #2, CSFCCDIFF #2, CSF PCR PANEL, GS, AERC, CSF GLU, CSF GLU #2 #### [address] Monocytes (Bld) [#/Vol] 1.0 10*3/uL High 0.0-0.8 [facility] Comment on above: Performed By: #### C SFCCDIFF, CSF TP, CSF TP #2, CSFCCDIFF #2, CSF PCR PANEL, GS, AERC, CSF GLU, CSF GLU #2 #### [address] Monocytes/100 WBC (Bld) 10.4 % Normal . [facility] Comment on above: Performed By: #### C SFCCDIFF, CSF TP, CSF TP #2, CSFCCDIFF #2, CSF PCR PANEL, GS, AERC, CSF GLU, CSF GLU #2 #### [facility] [address] Neutrophils (Bld) [#/Vol] 7.2 10*3/uL Normal 1.8-7.7 [facility] Comment on above: Performed By: #### C SFCCDIFF, CSF TP, CSF TP #2, CSFCCDIFF #2, CSF PCR PANEL, GS, AERC, CSF GLU, CSF GLU #2 #### [facility] [address] Neutrophils/100 WBC (Bld) 73.4 % Normal . [facility] Comment on above: Performed By: #### C SFCCDIFF, CSF TP, CSF TP #2, CSFCCDIFF #2, CSF PCR PANEL, GS, AERC, CSF GLU, CSF GLU #2 #### [address] NRBC% 0.1 /100{WBC} Normal 0-0.5 [facility] Comment on above: Performed By: #### C SFCCDIFF, CSF TP, CSF TP #2, CSFCCDIFF #2, CSF PCR PANEL, GS, AERC, CSF GLU, CSF GLU #2 #### [address] Platelet mean volume (Bld) [Entitic vol] 9.5 fL Normal 6.3-10.7 [facility] Comment on above: Performed By: #### C SFCCDIFF, CSF TP, CSF TP #2, CSFCCDIFF #2, CSF PCR PANEL, GS, AERC, CSF GLU, CSF GLU #2 #### [address] Platelets (Bld) [#/Vol] 273 10*3/uL Normal 150-450 [facility] Comment on above: Performed By: #### C SFCCDIFF, CSF TP, CSF TP #2, CSFCCDIFF #2, CSF PCR PANEL, GS, AERC, CSF GLU, CSF GLU #2 #### [place] [address] [place] RBC (Bld) [#/Vol] 4.11 10*6/uL Normal 3.60-5.00 [facility] Comment on above: Performed By: #### C SFCCDIFF, CSF TP, CSF TP #2, CSFCCDIFF #2, CSF PCR PANEL, GS, AERC, CSF GLU, CSF GLU #2 #### [facility] [address] [place] [id number] [place] WBC (Bld) [#/Vol] 9.8 10*3/uL Normal 3.8-11.6 [facility] Comment on above: Performed By: #### C SFCCDIFF, CSF TP, CSF TP #2, CSFCCDIFF #2, CSF PCR PANEL, GS, AERC, CSF GLU, CSF GLU #2 #### [facility] [address] Creatinine and Glomerular fi ltration rate.predicted panel (S/P/Bld)Ordered By: Melo Diana on 06-09-2022 Creatinine [Mass/Vol] 0.61 mg/dL 0.44-1.[address] [facility] Eosinophils Auto (Bld) [#/Vo l]Ordered By: Melo Diana on 06-09-2022 Eosinophils (Bld) [#/Vol] 0.0 10*3/uL 0.0-0.45 [facility] Eosinophils/100 WBC Auto (Bl d)Ordered By: Melo Diana on 06-09-2022 Eosinophils/100 WBC (Bld) 0.0 % . [facility] Erythrocyte distribution wid th Auto (RBC) [Ratio]Ordered By: Melo Diana on 06-09-2022 Erythrocyte distribution width (RBC) [Ratio] 13.3 % 11.9-15.3 [facility] Estimated glomerular filtrat ion rate (GFR) non- AmericanOrdered By: Melo Diana on 06-09-2022 GFR/1.73 sq M.predicted among non-blacks MDRD (S/P/Bld) [Vol rate/Area] > 60 mL/Min [facility] Hematocrit Auto (Bld) [Volum e fraction]Ordered By: Melo Diana on 06-09-2022 Hematocrit (Bld) [Volume fraction] 36.1 % 34.0-46.4 [facility] Hemoglobin [Mass/volume] in BloodOrdered By: Melo Diana on 06-09-2022 Hemoglobin (Bld) [Mass/Vol] 12.1 g/dL 11.8-15.4 [facility] Leukocytes [#/volume] correc gloria for nucleated erythrocytes in Blood by Automated counOrdered By: Melo Diana on 06-09-2022 WBC corrected for nucl RBC Auto (Bld) [#/Vol] 9.8 10*3/uL 3.8-11.6 [facility] Lymphocytes Auto (Bld) [#/Vo l]Ordered By: Melo Diana on 06-09-2022 Lymphocytes (Bld) [#/Vol] 1.6 10*3/uL 1.00-4.8 [facility] Lymphocytes/100 WBC Auto (Bl d)Ordered By: Melo Diana on 06-09-2022 Lymphocytes/100 WBC (Bld) 16.1 % . [facility] MCH Auto (RBC) [Entitic mass ]Ordered By: Melo Diana on 06-09-2022 MCH (RBC) [Entitic mass] 29.4 pg 24.7-34.3 [facility] MCHC Auto (RBC) [Mass/Vol]Or dered By: Melo Diana on 06-09-2022 MCHC (RBC) [Mass/Vol] 33.5 g/dL 32.0-35.[address] [facility] MCV Auto (RBC) [Entitic vol] Ordered By: Melo Diana on 06-09-2022 MCV (RBC) [Entitic vol] 87.8 fL 80-100 [facility] Monocytes Auto (Bld) [#/Vol] Ordered By: Melo Diana on 06-09-2022 Monocytes (Bld) [#/Vol] 1.0 10*3/uL 0.0-0.8 [facility] Monocytes/100 WBC Auto (Bld) Ordered By: Melo Diana on 06-09-2022 Monocytes/100 WBC (Bld) 10.4 % . [facility] Neutrophils Auto (Bld) [#/Vo l]Ordered By: Melo Diana on 06-09-2022 Neutrophils (Bld) [#/Vol] 7.2 10*3/uL 1.8-7.7 [facility] Neutrophils/100 WBC Auto (Bl d)Ordered By: Melo Diana on 06-09-2022 Neutrophils/100 WBC (Bld) 73.4 % . [facility] No Panel InformationOrdered By: Melo Diana on 06-09-2022 Estimated GFR () > 60 mL/Min [facility] Comment on above: GFR estimated refere nce range: According to KDOQI guidelines, <60 ml/min/1.73m2 is sufficient to diagnose a patient with chronic kidney disease. Pharmacy Creatinine Clearance (Chem 181.95 [facility] Nucleated erythrocytes [Pres ence] in Blood by Automated countOrdered By: Melo Diana on 06-09-2022 Nucleated RBC Auto Ql (Bld) 0.1 /100{WBC} 0-0.5 [facility] Platelet mean volume Auto (B ld) [Entitic vol]Ordered By: Melo Diana on 06-09-2022 Platelet mean volume (Bld) [Entitic vol] 9.5 fL 6.3-10.7 [facility] Platelets Auto (Bld) [#/Vol] Ordered By: Melo Diana on 06-09-2022 Platelets (Bld) [#/Vol] 273 10*3/uL 150-450 [facility] RBC Auto (Bld) [#/Vol]Ordere d By: Melo Diana on 06-09-2022 RBC (Bld) [#/Vol] 4.11 10*6/uL 3.60-5.00 [facility] Serum or plasma anion gap de terminationOrdered By: Melo Diana on 06-09-2022 Anion gap [Moles/Vol] 11.8 mmol/L 6.0-15.0 [facility] Serum or plasma calcium diomedes urement (mass/volume)Ordered By: Melo Diana on 06-09-2022 Calcium [Mass/Vol] 8.3 mg/dL 8.2-10.2 [facility] Serum or plasma chloride omar surement (moles/volume)Ordered By: Melo Diana on 06-09-2022 Chloride [Moles/Vol] 98 mmol/L 95-114 [facility] Serum or plasma glucose diomedes urement (mass/volume)Ordered By: Melo Diana on 06-09-2022 Glucose [Mass/Vol] 97 mg/dL 70-100 [facility] Comment on above: ADA recommended refe rence rangeRandom Glucose Reference Range is dependent on time and content of last meal. Glucose of more than 200 mg/dL in a nonstressed, ambulatory subject supports the diagnosis of Diabetes Mellitus. Serum or plasma potassium me asurement (moles/volume)Ordered By: Melo Diana on 06-09-2022 Potassium [Moles/Vol] 4.0 mmol/L 3.5-5.[address] [facility] Serum or plasma sodium measu rement (moles/volume)Ordered By: Melo Diana on 06-09-2022 Sodium [Moles/Vol] 132 mmol/L 136-146 [facility] Serum or plasma total carbon dioxide measurement (moles/volume)Ordered By: Melo Diana on 06-09-2022 CO2 [Moles/Vol] 26.2 mmol/L 22.0-30.0 [facility] Serum or plasma urea nitroge n measurement (mass/volume)Ordered By: Melo Diana on 06-09-2022 Urea nitrogen [Mass/Vol] 11 mg/dL 9- [facility] WBC Auto (Bld) [#/Vol]Ordere d By: Melo Diana on 06-09-2022 WBC (Bld) [#/Vol] 9.8 10*3/uL 3.8-11.6 [facility] Basic Metabolic Panelon 05-21 Anion gap [Moles/Vol] 13.4 mmol/L Normal 6.0-15.0 [facility] Comment on above: Performed By: #### C SFCCDIFF, CSF TP, CSF TP #2, CSFCCDIFF #2, CSF PCR PANEL, GS, AERC, CSF GLU, CSF GLU #2 #### [facility] [address] Calcium [Mass/Vol] 8.4 mg/dL Normal 8.2-10.2 [facility] Comment on above: Performed By: #### C SFCCDIFF, CSF TP, CSF TP #2, CSFCCDIFF #2, CSF PCR PANEL, GS, AERC, CSF GLU, CSF GLU #2 #### [facility] [address] Chloride [Moles/Vol] 98 mmol/L Normal 95-114 [facility] Comment on above: Performed By: #### C SFCCDIFF, CSF TP, CSF TP #2, CSFCCDIFF #2, CSF PCR PANEL, GS, AERC, CSF GLU, CSF GLU #2 #### [facility] [address] CO2 [Moles/Vol] 27.5 mmol/L Normal 22.0-30.0 [facility] Comment on above: Performed By: #### C SFCCDIFF, CSF TP, CSF TP #2, CSFCCDIFF #2, CSF PCR PANEL, GS, AERC, CSF GLU, CSF GLU #2 #### [facility] [address] Creatinine [Mass/Vol] 0.62 mg/dL Normal 0.44-1.[address] [facility] Comment on above: Performed By: #### C SFCCDIFF, CSF TP, CSF TP #2, CSFCCDIFF #2, CSF PCR PANEL, GS, AERC, CSF GLU, CSF GLU #2 #### [facility] [address] Creatinine Clr Calc Pharmacy 179.02 [facility] Comment on above: Result Comment: PERF ORMED BY: [place] [address] PATHOLOGIST PIGMENT PRESSER SUMEET GONZALEZ M.D. Performed By: #### C SFCCDIFF, CSF TP, CSF TP #2, CSFCCDIFF #2, CSF PCR PANEL, GS, AERC, CSF GLU, CSF GLU #2 #### [address] Estimated GFR ( Jannet > 60 Normal [facility] Comment on above: Result Comment: GFR estimated reference range: According to KDOQI guidelines, <60 ml/min/1.73m2 is sufficient to diagnose a patient with chronic kidney disease. Performed By: #### C SFCCDIFF, CSF TP, CSF TP #2, CSFCCDIFF #2, CSF PCR PANEL, GS, AERC, CSF GLU, CSF GLU #2 #### [address] Estimated GFR (Non- Am > 60 [facility] Comment on above: Performed By: #### C SFCCDIFF, CSF TP, CSF TP #2, CSFCCDIFF #2, CSF PCR PANEL, GS, AERC, CSF GLU, CSF GLU #2 #### [address] Glucose [Mass/Vol] 88 mg/dL Normal 70-100 [facility] Comment on above: Result Comment: [place] Glucose Reference Range is dependent on time and content of last meal. Glucose of more than 200 mg/dL in a nonstressed, ambulatory subject supports the diagnosis of Diabetes Mellitus. ADA recommended reference range Performed By: #### C SFCCDIFF, CSF TP, CSF TP #2, CSFCCDIFF #2, CSF PCR PANEL, GS, AERC, CSF GLU, CSF GLU #2 #### [address] Potassium [Moles/Vol] 3.9 mmol/L Normal 3.5-5.[address] [facility] Comment on above: Performed By: #### C SFCCDIFF, CSF TP, CSF TP #2, CSFCCDIFF #2, CSF PCR PANEL, GS, AERC, CSF GLU, CSF GLU #2 #### [address] Sodium [Moles/Vol] 135 mmol/L Low 136-146 [facility] Comment on above: Performed By: #### C SFCCDIFF, CSF TP, CSF TP #2, CSFCCDIFF #2, CSF PCR PANEL, GS, AERC, CSF GLU, CSF GLU #2 #### [address] Urea nitrogen [Mass/Vol] 11 mg/dL Normal 9-23 [facility] Comment on above: Performed By: #### C SFCCDIFF, CSF TP, CSF TP #2, CSFCCDIFF #2, CSF PCR PANEL, GS, AERC, CSF GLU, CSF GLU #2 #### [address] Complete Blood Count Auto Di ffon 06-08-2022 Basophils (Bld) [#/Vol] 0.0 10*3/uL Normal 0.0-0.2 [facility] Comment on above: Result Comment: PERF ORMED BY: [place] [address] PATHOLOGIST PIGMENT PRESSER SUMEET GONZALEZ M.D. Performed By: #### C SFCCDIFF, CSF TP, CSF TP #2, CSFCCDIFF #2, CSF PCR PANEL, GS, AERC, CSF GLU, CSF GLU #2 #### [address] Basophils/100 WBC (Bld) 0.1 % Normal . [facility] Comment on above: Performed By: #### C SFCCDIFF, CSF TP, CSF TP #2, CSFCCDIFF #2, CSF PCR PANEL, GS, AERC, CSF GLU, CSF GLU #2 #### [address] Eosinophils (Bld) [#/Vol] 0.0 10*3/uL Normal 0.0-0.45 [facility] Comment on above: Performed By: #### C SFCCDIFF, CSF TP, CSF TP #2, CSFCCDIFF #2, CSF PCR PANEL, GS, AERC, CSF GLU, CSF GLU #2 #### [address] Eosinophils/100 WBC (Bld) 0.0 % Normal . [facility] Comment on above: Performed By: #### C SFCCDIFF, CSF TP, CSF TP #2, CSFCCDIFF #2, CSF PCR PANEL, GS, AERC, CSF GLU, CSF GLU #2 #### [address] Erythrocyte distribution width (RBC) [Ratio] 13.0 % Normal 11.9-15.3 [facility] Comment on above: Performed By: #### C SFCCDIFF, CSF TP, CSF TP #2, CSFCCDIFF #2, CSF PCR PANEL, GS, AERC, CSF GLU, CSF GLU #2 #### [address] Hematocrit (Bld) [Volume fraction] 38.0 % Normal 34.0-46.4 [facility] Comment on above: Performed By: #### C SFCCDIFF, CSF TP, CSF TP #2, CSFCCDIFF #2, CSF PCR PANEL, GS, AERC, CSF GLU, CSF GLU #2 #### [address] Hemoglobin (Bld) [Mass/Vol] 12.3 g/dL Normal 11.8-15.4 [facility] Comment on above: Performed By: #### C SFCCDIFF, CSF TP, CSF TP #2, CSFCCDIFF #2, CSF PCR PANEL, GS, AERC, CSF GLU, CSF GLU #2 #### [address] Lymphocytes (Bld) [#/Vol] 1.8 10*3/uL Normal 1.00-4.8 [facility] Comment on above: Performed By: #### C SFCCDIFF, CSF TP, CSF TP #2, CSFCCDIFF #2, CSF PCR PANEL, GS, AERC, CSF GLU, CSF GLU #2 #### [address] Lymphocytes/100 WBC (Bld) 12.8 % Normal . [facility] Comment on above: Performed By: #### C SFCCDIFF, CSF TP, CSF TP #2, CSFCCDIFF #2, CSF PCR PANEL, GS, AERC, CSF GLU, CSF GLU #2 #### [address] MCH (RBC) [Entitic mass] 28.8 pg Normal 24.7-34.3 [facility] Comment on above: Performed By: #### C SFCCDIFF, CSF TP, CSF TP #2, CSFCCDIFF #2, CSF PCR PANEL, GS, AERC, CSF GLU, CSF GLU #2 #### [address] MCV (RBC) [Entitic vol] 88.8 fL Normal 80-100 [facility] Comment on above: Performed By: #### C SFCCDIFF, CSF TP, CSF TP #2, CSFCCDIFF #2, CSF PCR PANEL, GS, AERC, CSF GLU, CSF GLU #2 #### [address] Mean Corpuscular HGB Conc 32.4 g/dL Normal 32.0-35.0 [facility] Comment on above: Performed By: #### C SFCCDIFF, CSF TP, CSF TP #2, CSFCCDIFF #2, CSF PCR PANEL, GS, AERC, CSF GLU, CSF GLU #2 #### [address] Monocytes (Bld) [#/Vol] 1.1 10*3/uL High 0.0-0.8 [facility] Comment on above: Performed By: #### C SFCCDIFF, CSF TP, CSF TP #2, CSFCCDIFF #2, CSF PCR PANEL, GS, AERC, CSF GLU, CSF GLU #2 #### [address] Monocytes/100 WBC (Bld) 7.8 % Normal . [facility] Comment on above: Performed By: #### C SFCCDIFF, CSF TP, CSF TP #2, CSFCCDIFF #2, CSF PCR PANEL, GS, AERC, CSF GLU, CSF GLU #2 #### [facility] [address] Neutrophils (Bld) [#/Vol] 11.4 10*3/uL High 1.8-7.7 [facility] Comment on above: Performed By: #### C SFCCDIFF, CSF TP, CSF TP #2, CSFCCDIFF #2, CSF PCR PANEL, GS, AERC, CSF GLU, CSF GLU #2 #### [facility] [address] Neutrophils/100 WBC (Bld) 79.3 % Normal . [facility] Comment on above: Performed By: #### C SFCCDIFF, CSF TP, CSF TP #2, CSFCCDIFF #2, CSF PCR PANEL, GS, AERC, CSF GLU, CSF GLU #2 #### [facility] [address] [place] [address] [place] NRBC% 0.2 /100{WBC} Normal 0-0.5 [facility] Comment on above: Performed By: #### C SFCCDIFF, CSF TP, CSF TP #2, CSFCCDIFF #2, CSF PCR PANEL, GS, AERC, CSF GLU, CSF GLU #2 #### [facility] [address] [place] [address] [place] Platelet mean volume (Bld) [Entitic vol] 10.1 fL Normal 6.3-10.7 [facility] Comment on above: Performed By: #### C SFCCDIFF, CSF TP, CSF TP #2, CSFCCDIFF #2, CSF PCR PANEL, GS, AERC, CSF GLU, CSF GLU #2 #### [facility] [address] Platelets (Bld) [#/Vol] 273 10*3/uL Normal 150-450 [facility] Comment on above: Performed By: #### C SFCCDIFF, CSF TP, CSF TP #2, CSFCCDIFF #2, CSF PCR PANEL, GS, AERC, CSF GLU, CSF GLU #2 #### [facility] [address] RBC (Bld) [#/Vol] 4.29 10*6/uL Normal 3.60-5.00 [facility] Comment on above: Performed By: #### C SFCCDIFF, CSF TP, CSF TP #2, CSFCCDIFF #2, CSF PCR PANEL, GS, AERC, CSF GLU, CSF GLU #2 #### [facility] [address] WBC (Bld) [#/Vol] 14.3 10*3/uL High 3.8-11.6 [facility] Comment on above: Performed By: #### C SFCCDIFF, CSF TP, CSF TP #2, CSFCCDIFF #2, CSF PCR PANEL, GS, AERC, CSF GLU, CSF GLU #2 #### [facility] [address] Basic Metabolic Panelon 05-21 Anion gap [Moles/Vol] 15.7 mmol/L High 6.0-15.0 [facility] Comment on above: Performed By: #### C SFCCDIFF, CSF TP, CSF TP #2, CSFCCDIFF #2, CSF PCR PANEL, GS, AERC, CSF GLU, CSF GLU #2 #### [facility] [address] Calcium [Mass/Vol] 8.9 mg/dL Normal 8.2-10.2 [facility] Comment on above: Performed By: #### C SFCCDIFF, CSF TP, CSF TP #2, CSFCCDIFF #2, CSF PCR PANEL, GS, AERC, CSF GLU, CSF GLU #2 #### [facility] [address] Chloride [Moles/Vol] 98 mmol/L Normal 95-114 [facility] Comment on above: Performed By: #### C SFCCDIFF, CSF TP, CSF TP #2, CSFCCDIFF #2, CSF PCR PANEL, GS, AERC, CSF GLU, CSF GLU #2 #### [address] CO2 [Moles/Vol] 27.4 mmol/L Normal 22.0-30.0 [facility] Comment on above: Performed By: #### C SFCCDIFF, CSF TP, CSF TP #2, CSFCCDIFF #2, CSF PCR PANEL, GS, AERC, CSF GLU, CSF GLU #2 #### [address] Creatinine [Mass/Vol] 0.65 mg/dL Normal 0.44-1.[address] [facility] Comment on above: Performed By: #### C SFCCDIFF, CSF TP, CSF TP #2, CSFCCDIFF #2, CSF PCR PANEL, GS, AERC, CSF GLU, CSF GLU #2 #### [address] Creatinine Clr Calc Pharmacy 170.76 [facility] Comment on above: Result Comment: PERF ORMED BY: [place] [address] PATHOLOGIST PIGMENT PRESSER SUMEET GONZALEZ M.D. Performed By: #### C SFCCDIFF, CSF TP, CSF TP #2, CSFCCDIFF #2, CSF PCR PANEL, GS, AERC, CSF GLU, CSF GLU #2 #### [address] Estimated GFR ( Jannet > 60 [facility] Comment on above: Result Comment: G[place] estimated reference range: According to KDOQI guidelines, <60 ml/min/1.73m2 is sufficient to diagnose a patient with chronic kidney disease. Performed By: #### C SFCCDIFF, CSF TP, CSF TP #2, CSFCCDIFF #2, CSF PCR PANEL, GS, AERC, CSF GLU, CSF GLU #2 #### [address] Estimated GFR (Non- Am > 60 Normal [facility] Comment on above: Performed By: #### C SFCCDIFF, CSF TP, CSF TP #2, CSFCCDIFF #2, CSF PCR PANEL, GS, AERC, CSF GLU, CSF GLU #2 #### [facility] [address] Glucose [Mass/Vol] 120 mg/dL High 70-100 [facility] Comment on above: Result Comment: [place] Glucose Reference Range is dependent on time and content of last meal. Glucose of more than 200 mg/dL in a nonstressed, ambulatory subject supports the diagnosis of Diabetes Mellitus. ADA recommended reference range Performed By: #### C SFCCDIFF, CSF TP, CSF TP #2, CSFCCDIFF #2, CSF PCR PANEL, GS, AERC, CSF GLU, CSF GLU #2 #### [address] Potassium [Moles/Vol] 4.1 mmol/L Normal 3.5-5.[address] [facility] Comment on above: Performed By: #### C SFCCDIFF, CSF TP, CSF TP #2, CSFCCDIFF #2, CSF PCR PANEL, GS, AERC, CSF GLU, CSF GLU #2 #### [address] Sodium [Moles/Vol] 137 mmol/L Normal 136-146 [facility] Comment on above: Performed By: #### C SFCCDIFF, CSF TP, CSF TP #2, CSFCCDIFF #2, CSF PCR PANEL, GS, AERC, CSF GLU, CSF GLU #2 #### [facility] [address] Urea nitrogen [Mass/Vol] 9 mg/dL Normal 9-23 [facility] Comment on above: Performed By: #### C SFCCDIFF, CSF TP, CSF TP #2, CSFCCDIFF #2, CSF PCR PANEL, GS, AERC, CSF GLU, CSF GLU #2 #### [address] Complete Blood Count Auto Di ffon 06-07-2022 Basophils (Bld) [#/Vol] 0.0 10*3/uL Normal 0.0-0.2 [facility] Comment on above: Result Comment: PERF ORMED BY: [place] [address] PATHOLOGIST PIGMENT PRESSER SUMEET GONZALEZ M.D. Performed By: #### C SFCCDIFF, CSF TP, CSF TP #2, CSFCCDIFF #2, CSF PCR PANEL, GS, AERC, CSF GLU, CSF GLU #2 #### [address] Basophils/100 WBC (Bld) 0.1 % Normal . [facility] Comment on above: Performed By: #### C SFCCDIFF, CSF TP, CSF TP #2, CSFCCDIFF #2, CSF PCR PANEL, GS, AERC, CSF GLU, CSF GLU #2 #### [place] [address] [place] Eosinophils (Bld) [#/Vol] 0.0 10*3/uL Normal 0.0-0.45 [facility] Comment on above: Performed By: #### C SFCCDIFF, CSF TP, CSF TP #2, CSFCCDIFF #2, CSF PCR PANEL, GS, AERC, CSF GLU, CSF GLU #2 #### [address] Eosinophils/100 WBC (Bld) 0.0 % Normal . [facility] Comment on above: Performed By: #### C SFCCDIFF, CSF TP, CSF TP #2, CSFCCDIFF #2, CSF PCR PANEL, GS, AERC, CSF GLU, CSF GLU #2 #### [place] [address] [place] Erythrocyte distribution width (RBC) [Ratio] 13.1 % Normal 11.9-15.3 [facility] Comment on above: Performed By: #### C SFCCDIFF, CSF TP, CSF TP #2, CSFCCDIFF #2, CSF PCR PANEL, GS, AERC, CSF GLU, CSF GLU #2 #### [address] Hematocrit (Bld) [Volume fraction] 39.3 % Normal 34.0-46.4 [facility] Comment on above: Performed By: #### C SFCCDIFF, CSF TP, CSF TP #2, CSFCCDIFF #2, CSF PCR PANEL, GS, AERC, CSF GLU, CSF GLU #2 #### [address] Hemoglobin (Bld) [Mass/Vol] 12.8 g/dL Normal 11.8-15.4 [facility] Comment on above: Performed By: #### C SFCCDIFF, CSF TP, CSF TP #2, CSFCCDIFF #2, CSF PCR PANEL, GS, AERC, CSF GLU, CSF GLU #2 #### [address] Lymphocytes (Bld) [#/Vol] 1.6 10*3/uL Normal 1.00-4.8 [facility] Comment on above: Performed By: #### C SFCCDIFF, CSF TP, CSF TP #2, CSFCCDIFF #2, CSF PCR PANEL, GS, AERC, CSF GLU, CSF GLU #2 #### [address] Lymphocytes/100 WBC (Bld) 8.2 % Normal . [facility] Comment on above: Performed By: #### C SFCCDIFF, CSF TP, CSF TP #2, CSFCCDIFF #2, CSF PCR PANEL, GS, AERC, CSF GLU, CSF GLU #2 #### [address] MCH (RBC) [Entitic mass] 28.7 pg Normal 24.7-34.3 [facility] Comment on above: Performed By: #### C SFCCDIFF, CSF TP, CSF TP #2, CSFCCDIFF #2, CSF PCR PANEL, GS, AERC, CSF GLU, CSF GLU #2 #### [address] MCV (RBC) [Entitic vol] 88.1 fL Normal 80-100 [facility] Comment on above: Performed By: #### C SFCCDIFF, CSF TP, CSF TP #2, CSFCCDIFF #2, CSF PCR PANEL, GS, AERC, CSF GLU, CSF GLU #2 #### [facility] [address] Mean Corpuscular HGB Conc 32.6 g/dL Normal 32.0-35.0 [facility] Comment on above: Performed By: #### C SFCCDIFF, CSF TP, CSF TP #2, CSFCCDIFF #2, CSF PCR PANEL, GS, AERC, CSF GLU, CSF GLU #2 #### [address] Monocytes (Bld) [#/Vol] 1.3 10*3/uL High 0.0-0.8 [facility] Comment on above: Performed By: #### C SFCCDIFF, CSF TP, CSF TP #2, CSFCCDIFF #2, CSF PCR PANEL, GS, AERC, CSF GLU, CSF GLU #2 #### [facility] [address] [place] [address] [place] Monocytes/100 WBC (Bld) 6.7 % Normal . [facility] Comment on above: Performed By: #### C SFCCDIFF, CSF TP, CSF TP #2, CSFCCDIFF #2, CSF PCR PANEL, GS, AERC, CSF GLU, CSF GLU #2 #### [place] [address] [place] Neutrophils (Bld) [#/Vol] 16.7 10*3/uL High 1.8-7.7 [facility] Comment on above: Performed By: #### C SFCCDIFF, CSF TP, CSF TP #2, CSFCCDIFF #2, CSF PCR PANEL, GS, AERC, CSF GLU, CSF GLU #2 #### [address] Neutrophils/100 WBC (Bld) 85.0 % Normal . [facility] Comment on above: Performed By: #### C SFCCDIFF, CSF TP, CSF TP #2, CSFCCDIFF #2, CSF PCR PANEL, GS, AERC, CSF GLU, CSF GLU #2 #### [address] NRBC% 0.0 /100{WBC} Normal 0-0.5 [facility] Comment on above: Performed By: #### C SFCCDIFF, CSF TP, CSF TP #2, CSFCCDIFF #2, CSF PCR PANEL, GS, AERC, CSF GLU, CSF GLU #2 #### [address] Platelet mean volume (Bld) [Entitic vol] 9.9 fL Normal 6.3-10.7 [facility] Comment on above: Performed By: #### C SFCCDIFF, CSF TP, CSF TP #2, CSFCCDIFF #2, CSF PCR PANEL, GS, AERC, CSF GLU, CSF GLU #2 #### [address] Platelets (Bld) [#/Vol] 292 10*3/uL Normal 150-450 [facility] Comment on above: Performed By: #### C SFCCDIFF, CSF TP, CSF TP #2, CSFCCDIFF #2, CSF PCR PANEL, GS, AERC, CSF GLU, CSF GLU #2 #### [address] RBC (Bld) [#/Vol] 4.46 10*6/uL Normal 3.60-5.00 [facility] Comment on above: Performed By: #### C SFCCDIFF, CSF TP, CSF TP #2, CSFCCDIFF #2, CSF PCR PANEL, GS, AERC, CSF GLU, CSF GLU #2 #### [address] WBC (Bld) [#/Vol] 19.7 10*3/uL High 3.8-11.6 [facility] Comment on above: Performed By: #### C SFCCDIFF, CSF TP, CSF TP #2, CSFCCDIFF #2, CSF PCR PANEL, GS, AERC, CSF GLU, CSF GLU #2 #### [facility] [address] MR cervical spine wo/w conon 06-07-2022 MR cervical spine wo/w con [facility] [place] [address] [place] [address] MRI Report Signed Patient: Heena Wang MR#: [id number] 5 : 2005 Acct:[id number] Age/Sex: 17 / F ADM Date: 06/02/22 Loc: 3T Room: [address] [place] [address] Type: ADM IN Attending Dr: Melo Diana MD Copies to: RHIANNON Khan MD Ordering Provider: RHIANNON Khan Date of Service: 06/06/22 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 FINDINGS: The bones of the cervical spine are in anatomic alignment. There is preservation of vertebral body heights and intervertebral disc spaces. The marrow signal is within normal limits. There is subtle increased STIR signal in the dorsal aspect of the cord at the level of the odontoid process on series 4 image 11 with subtle enhancement on series 7 image 12 in this location. No additional focal areas of signal abnormality are noted in the cervical cord. No epidural or paraspinous fluid collection is appreciated. The visualized paraspinous soft tissues are within normal limits. The prevertebral soft tissues are within normal limits. At C2-C3: There is a normal disc, central canal, and neural foramen. At C3-C4: There is a normal disc, central canal, and neural foramen. At C4-C5: There is a normal disc, central canal, and neural foramen. At C5-C6: There is a normal disc, central canal, and neural foramen. At C6-C7: There is a normal disc, central canal, and neural foramen. At C7-T1: There is a normal disc, central canal, and neural foramen. MR/MR cervical spine wo/w con IMPRESSION: There is subtle increased STIR signal in the dorsal aspect of the cord at the level of the odontoid process on series 4 image 11 with subtle enhancement on series 7 image 12 in this location. No additional focal areas of signal abnormality are noted in the cervical cord. No significant spinal canal or neural foraminal narrowing. Impression dictated by: Connor Mae M.D.06/07/2022 8:44 AM Dictation Location: [place] [address] Transcribed By: [facility] 06/07/22843 Dictated By: Connor Mae II, MD 06/07/2238 Signed By: 06/07/22843 Normal [facility] Basic Metabolic Panelon 05-21 Anion gap [Moles/Vol] 12.6 mmol/L Normal 6.0-15.0 [facility] Comment on above: Performed By: #### C SFCCDIFF, CSF TP, CSF TP #2, CSFCCDIFF #2, CSF PCR PANEL, GS, AERC, CSF GLU, CSF GLU #2 #### [facility] [address] [place] [address] [place] Calcium [Mass/Vol] 9.2 mg/dL Normal 8.2-10.2 [facility] Comment on above: Performed By: #### C SFCCDIFF, CSF TP, CSF TP #2, CSFCCDIFF #2, CSF PCR PANEL, GS, AERC, CSF GLU, CSF GLU #2 #### [facility] [address] [place] [id number] [place] Chloride [Moles/Vol] 100 mmol/L Normal 95-114 [facility] Comment on above: Performed By: #### C SFCCDIFF, CSF TP, CSF TP #2, CSFCCDIFF #2, CSF PCR PANEL, GS, AERC, CSF GLU, CSF GLU #2 #### [facility] [address] [place] [id number] [place] CO2 [Moles/Vol] 24.6 mmol/L Normal 22.0-30.0 [facility] Comment on above: Performed By: #### C SFCCDIFF, CSF TP, CSF TP #2, CSFCCDIFF #2, CSF PCR PANEL, GS, AERC, CSF GLU, CSF GLU #2 #### [facility] [address] Creatinine [Mass/Vol] 0.64 mg/dL Normal 0.44-1.[address] [facility] Comment on above: Performed By: #### C SFCCDIFF, CSF TP, CSF TP #2, CSFCCDIFF #2, CSF PCR PANEL, GS, AERC, CSF GLU, CSF GLU #2 #### [facility] [address] Creatinine Clr Calc Pharmacy 173.43 [facility] Comment on above: Result Comment: PERF ORMED BY: [place] [address] PATHOLOGIST PIGMENT PRESSER SUMEET GONZALEZ M.D. Performed By: #### C SFCCDIFF, CSF TP, CSF TP #2, CSFCCDIFF #2, CSF PCR PANEL, GS, AERC, CSF GLU, CSF GLU #2 #### [address] Estimated GFR ( Jannet > 60 [facility] Comment on above: Result Comment: GFR estimated reference range: According to KDOQI guidelines, <60 ml/min/1.73m2 is sufficient to diagnose a patient with chronic kidney disease. Performed By: #### C SFCCDIFF, CSF TP, CSF TP #2, CSFCCDIFF #2, CSF PCR PANEL, GS, AERC, CSF GLU, CSF GLU #2 #### [facility] [address] Estimated GFR (Non- Am > 60 [facility] Comment on above: Performed By: #### C SFCCDIFF, CSF TP, CSF TP #2, CSFCCDIFF #2, CSF PCR PANEL, GS, AERC, CSF GLU, CSF GLU #2 #### [facility] [address] [place] [address] [place] Glucose [Mass/Vol] 136 mg/dL High 70-100 [facility] Comment on above: Result Comment: [place] Glucose Reference Range is dependent on time and content of last meal. Glucose of more than 200 mg/dL in a nonstressed, ambulatory subject supports the diagnosis of Diabetes Mellitus. ADA recommended reference range Performed By: #### C SFCCDIFF, CSF TP, CSF TP #2, CSFCCDIFF #2, CSF PCR PANEL, GS, AERC, CSF GLU, CSF GLU #2 #### [facility] [address] Potassium [Moles/Vol] 4.2 mmol/L Normal 3.5-5.[address] [facility] Comment on above: Performed By: #### C SFCCDIFF, CSF TP, CSF TP #2, CSFCCDIFF #2, CSF PCR PANEL, GS, AERC, CSF GLU, CSF GLU #2 #### [facility] [address] [place] [address] [place] Sodium [Moles/Vol] 133 mmol/L Low 136-146 [facility] Comment on above: Performed By: #### C SFCCDIFF, CSF TP, CSF TP #2, CSFCCDIFF #2, CSF PCR PANEL, GS, AERC, CSF GLU, CSF GLU #2 #### [place] [address] [place] Urea nitrogen [Mass/Vol] 7 mg/dL Low 9-23 [facility] Comment on above: Performed By: #### C SFCCDIFF, CSF TP, CSF TP #2, CSFCCDIFF #2, CSF PCR PANEL, GS, AERC, CSF GLU, CSF GLU #2 #### [address] Complete Blood Count Auto Di ffon 06-06-2022 Basophils (Bld) [#/Vol] 0.0 10*3/uL Normal 0.0-0.2 [facility] Comment on above: Result Comment: PERF ORMED BY: [place] [address] PATHOLOGIST PIGMENT PRESSER SUMEET GONZALEZ M.D. Performed By: #### C SFCCDIFF, CSF TP, CSF TP #2, CSFCCDIFF #2, CSF PCR PANEL, GS, AERC, CSF GLU, CSF GLU #2 #### [address] Basophils/100 WBC (Bld) 0.1 % Normal . [facility] Comment on above: Performed By: #### C SFCCDIFF, CSF TP, CSF TP #2, CSFCCDIFF #2, CSF PCR PANEL, GS, AERC, CSF GLU, CSF GLU #2 #### [address] Eosinophils (Bld) [#/Vol] 0.0 10*3/uL Normal 0.0-0.45 [facility] Comment on above: Performed By: #### C SFCCDIFF, CSF TP, CSF TP #2, CSFCCDIFF #2, CSF PCR PANEL, GS, AERC, CSF GLU, CSF GLU #2 #### [address] Eosinophils/100 WBC (Bld) 0.0 % Normal . [facility] Comment on above: Performed By: #### C SFCCDIFF, CSF TP, CSF TP #2, CSFCCDIFF #2, CSF PCR PANEL, GS, AERC, CSF GLU, CSF GLU #2 #### [address] Erythrocyte distribution width (RBC) [Ratio] 13.3 % Normal 11.9-15.3 [facility] Comment on above: Performed By: #### C SFCCDIFF, CSF TP, CSF TP #2, CSFCCDIFF #2, CSF PCR PANEL, GS, AERC, CSF GLU, CSF GLU #2 #### [address] Hematocrit (Bld) [Volume fraction] 43.1 % Normal 34.0-46.4 [facility] Comment on above: Performed By: #### C SFCCDIFF, CSF TP, CSF TP #2, CSFCCDIFF #2, CSF PCR PANEL, GS, AERC, CSF GLU, CSF GLU #2 #### [facility] [address] Hemoglobin (Bld) [Mass/Vol] 14.2 g/dL Normal 11.8-15.4 [facility] Comment on above: Performed By: #### C SFCCDIFF, CSF TP, CSF TP #2, CSFCCDIFF #2, CSF PCR PANEL, GS, AERC, CSF GLU, CSF GLU #2 #### [address] Lymphocytes (Bld) [#/Vol] 0.9 10*3/uL Low 1.00-4.8 [facility] Comment on above: Performed By: #### C SFCCDIFF, CSF TP, CSF TP #2, CSFCCDIFF #2, CSF PCR PANEL, GS, AERC, CSF GLU, CSF GLU #2 #### [address] Lymphocytes/100 WBC (Bld) 12.0 % Normal . [facility] Comment on above: Performed By: #### C SFCCDIFF, CSF TP, CSF TP #2, CSFCCDIFF #2, CSF PCR PANEL, GS, AERC, CSF GLU, CSF GLU #2 #### [address] MCH (RBC) [Entitic mass] 29.2 pg Normal 24.7-34.3 [facility] Comment on above: Performed By: #### C SFCCDIFF, CSF TP, CSF TP #2, CSFCCDIFF #2, CSF PCR PANEL, GS, AERC, CSF GLU, CSF GLU #2 #### [address] MCV (RBC) [Entitic vol] 88.8 fL Normal 80-100 [facility] Comment on above: Performed By: #### C SFCCDIFF, CSF TP, CSF TP #2, CSFCCDIFF #2, CSF PCR PANEL, GS, AERC, CSF GLU, CSF GLU #2 #### [address] Mean Corpuscular HGB Conc 32.9 g/dL Normal 32.0-35.0 [facility] Comment on above: Performed By: #### C SFCCDIFF, CSF TP, CSF TP #2, CSFCCDIFF #2, CSF PCR PANEL, GS, AERC, CSF GLU, CSF GLU #2 #### [facility] [address] [place] [address] [place] Monocytes (Bld) [#/Vol] 0.1 10*3/uL Normal 0.0-0.8 [facility] Comment on above: Performed By: #### C SFCCDIFF, CSF TP, CSF TP #2, CSFCCDIFF #2, CSF PCR PANEL, GS, AERC, CSF GLU, CSF GLU #2 #### [facility] [address] Monocytes/100 WBC (Bld) 1.8 % Normal . [facility] Comment on above: Performed By: #### C SFCCDIFF, CSF TP, CSF TP #2, CSFCCDIFF #2, CSF PCR PANEL, GS, AERC, CSF GLU, CSF GLU #2 #### [facility] [address] [place] [address] [place] Neutrophils (Bld) [#/Vol] 6.5 10*3/uL Normal 1.8-7.7 [facility] Comment on above: Performed By: #### C SFCCDIFF, CSF TP, CSF TP #2, CSFCCDIFF #2, CSF PCR PANEL, GS, AERC, CSF GLU, CSF GLU #2 #### [facility] [address] [place] [address] [place] Neutrophils/100 WBC (Bld) 86.1 % Normal . [facility] Comment on above: Performed By: #### C SFCCDIFF, CSF TP, CSF TP #2, CSFCCDIFF #2, CSF PCR PANEL, GS, AERC, CSF GLU, CSF GLU #2 #### [facility] [address] [place] [address] [place] NRBC% 0.1 /100{WBC} Normal 0-0.5 [facility] Comment on above: Performed By: #### C SFCCDIFF, CSF TP, CSF TP #2, CSFCCDIFF #2, CSF PCR PANEL, GS, AERC, CSF GLU, CSF GLU #2 #### [address] Platelet mean volume (Bld) [Entitic vol] 9.3 fL Normal 6.3-10.7 [facility] Comment on above: Performed By: #### C SFCCDIFF, CSF TP, CSF TP #2, CSFCCDIFF #2, CSF PCR PANEL, GS, AERC, CSF GLU, CSF GLU #2 #### [address] Platelets (Bld) [#/Vol] 279 10*3/uL Normal 150-450 [facility] Comment on above: Performed By: #### C SFCCDIFF, CSF TP, CSF TP #2, CSFCCDIFF #2, CSF PCR PANEL, GS, AERC, CSF GLU, CSF GLU #2 #### [address] RBC (Bld) [#/Vol] 4.85 10*6/uL Normal 3.60-5.00 [facility] Comment on above: Performed By: #### C SFCCDIFF, CSF TP, CSF TP #2, CSFCCDIFF #2, CSF PCR PANEL, GS, AERC, CSF GLU, CSF GLU #2 #### [address] WBC (Bld) [#/Vol] 7.6 10*3/uL Normal 3.8-11.6 [facility] Comment on above: Performed By: #### C SFCCDIFF, CSF TP, CSF TP #2, CSFCCDIFF #2, CSF PCR PANEL, GS, AERC, CSF GLU, CSF GLU #2 #### [address] LIZZY Antinuclear Antibodieson 06-05-2022 Antinuclear Abs, IFA Positive Critically abnormal . [facility] Comment on above: Result Comment: Nega tive <1:80 Borderline 1:80 Positive >1:80 Performed By: #### C SFCCDIFF, CSF TP, CSF TP #2, CSFCCDIFF #2, CSF PCR PANEL, GS, AERC, CSF GLU, CSF GLU #2 #### [facility] [address] Homogeneous Pattern 1:160 High . [facility] Comment on above: Result Comment: ICAP nomenclature: AC-1 Performed By: #### C SFCCDIFF, CSF TP, CSF TP #2, CSFCCDIFF #2, CSF PCR PANEL, GS, AERC, CSF GLU, CSF GLU #2 #### [facility] [address] Note 1 Normal . [facility] Comment on above: Result Comment: For more information about Hep-2 cell patterns use ANApatterns.org, the official website for the International Consensus on Antinuclear Antibody (LIZZY) Patterns (ICAP). A positive LIZZY result may occur in healthy individuals (low titer) or be associated with a variety of diseases. See interpretation chart which is not all inclusive: Pattern Antigen Detected Suggested Disease Association Homogeneous DNA(ds,ss), SLE - High titers Nucleosomes, Histones Drug-induced SLE Speckled Sm, EPIC AMBULATORY ANALYST, SCL-70, SLE,MCTD,PSS (diffuse form), SS-A/SS-B Sjogrens Nucleolar SCL-70, PM-1/SCL High titers Scleroderma, PM/DM Centromere Centromere PSS (limited form) w/Crest syndrome variable Nuclear Dot Sp100,[id number]-[id number] Primary Biliary Cirrhosis Nuclear GP210, Primary Biliary Cirrhosis Membrane miranda A,B,C Performed at: - [facility] [id number] Medical Tech: Steve Fatima PhD, Phone: [phone] Performed By: #### C SFCCDIFF, CSF TP, CSF TP #2, CSFCCDIFF #2, CSF PCR PANEL, GS, AERC, CSF GLU, CSF GLU #2 #### [address] Activated partial thrombopla stin time (aPTT) in platelet poor plasma by coagulation aOrdered By: Lorelei Avery on 06-05-2022 aPTT Coag (PPP) [Time] 32.1 s 25.1-36.5 [facility] Aerobic Cultureon 06-05-2022 Aerobic Culture Comment Tube 2 No Growth 2 Days Comment Tube 2 No Anaerobes Isolated 3 Days Comment Tube 2 Gram Stain Result No Bacteria Seen 1+ White Blood Cells PERFORMED BY: [place] [address] PATHOLOGIST PIGMENT PRESSER SUMEET GONZALEZ M.D. Normal [facility] Comment on above: Performed By: #### C SFCCDIFF, CSF TP, CSF TP #2, CSFCCDIFF #2, CSF PCR PANEL, GS, AERC, CSF GLU, CSF GLU #2 #### [facility] [address] [place] [address] [place] Aerobic cultureOrdered By: Zehra Avery on 06-05-2022 Bacteria identified Aer cx Nom (Unsp spec) No Growth 2 Days [facility] Albumin [Mass/volume] in Cer ebral spinal fluidOrdered By: Lorelei Avery on 06-05-2022 Albumin (CSF) [Mass/Vol] 35 mg/dL 7-29 [facility] Albumin [Mass/volume] in Ser um or PlasmaOrdered By: Lorelei Avery on 06-05-2022 Albumin [Mass/Vol] 4.3 g/dL 3.9-5.0 [facility] Anaerobic cultureOrdered By: Lorelei Avery on 06-05-2022 Bacteria identified Anaer cx Nom (Unsp spec) No Anaerobes Isolated 3 Days [facility] Angiotensin Converting Enzym mike 06-05-2022 Angiotensin converting enzyme [Catalytic activity/Vol] 26 U/L Normal 14-82 [facility] Comment on above: Result Comment: Perf ormed at: CB - [facility] [address] [id number] Medical Tech: Steve Fatima PhD, Phone: [phone] Performed By: #### C SFCCDIFF, CSF TP, CSF TP #2, CSFCCDIFF #2, CSF PCR PANEL, GS, AERC, CSF GLU, CSF GLU #2 #### [facility] [address] [place] [id number] [place] Anti-Myelin Oligoden Glycopr oton 06-05-2022 Anti-Myelin Oligoden Glycoprot Positive Critically abnormal Negative [facility] Comment on above: Result Comment: This test was developed and its performance characteristics determined by [facility]. It has not been cleared or approved by the Food and Drug Administration. Performed By: #### C SFCCDIFF, CSF TP, CSF TP #2, CSFCCDIFF #2, CSF PCR PANEL, GS, AERC, CSF GLU, CSF GLU #2 #### [facility] [address] [place] [id number] [facility] CSF IgG/albumin ratioOrdered By: Lorelei Avery on 06-05-2022 IgG/Albumin (CSF) [Mass ratio] 0.24 0.00-0.25 [facility] CSF NMO Ab IgGon 06-05-2022 Aquaporin 4 IgG, CSF Normal [facility] Comment on above: Order Comment: Comme nt Tube 1 Result Comment: See report. Scanned copy available in EMR. PERFORMED BY: [place] [address] PATHOLOGIST PIGMENT PRESSER SUMEET GONZALEZ M.D. Performed By: #### C SFCCDIFF, CSF TP, CSF TP #2, CSFCCDIFF #2, CSF PCR PANEL, GS, AERC, CSF GLU, CSF GLU #2 #### [facility] [address] [place] [id number] [facility] CSF PCR Panelon 06-05-2022 CSF PCR Panel Results called at 1834 on 06/05/22 Comment Tube 2 Cytomegalovirus Not detected Cryptococcus neoformans or gattii 9002 Not detected Escherichia coli K1 Not detected Enterovirus Not detected Haemophilus influenzae (reported as H flu) Not detected Human herpesvirus 6 Not detected Herpes simplex virus 1 Not detected Herpes simplex virus 2 DNA [Presence] in Cerebral spinal fluid by TERESA with non-probe detection Detected Listeria monocytogenes (reported as listeriosis) Not detected Neisseria meningitidis - reported as meningococcal disease Not detected Human parechovirus Not detected Streptococcus pneumoniae - reported at ISP Not detected Group B Strep (Streptococcus agalactiae) Not detected Varicella zoster virus Not detected PERFORMED BY: [place] [address] PATHOLOGIST PIGMENT PRESSER SUMEET GONZALEZ M.D. Normal [facility] Comment on above: Performed By: #### C SFCCDIFF, CSF TP, CSF TP #2, CSFCCDIFF #2, CSF PCR PANEL, GS, AERC, CSF GLU, CSF GLU #2 #### [facility] [address] [place] [address] Cell Count Differential,CSFo n 06-05-2022 Appearance, CSF Clear Normal Clear [facility] Comment on above: Order Comment: Comme nt Tube 1 Performed By: #### C SFCCDIFF, CSF TP, CSF TP #2, CSFCCDIFF #2, CSF PCR PANEL, GS, AERC, CSF GLU, CSF GLU #2 #### [facility] [address] [place] [address] Order Comment: Comme nt Tube 3 Color, CSF Colorless Normal Colorless [facility] Comment on above: Order Comment: Comme nt Tube 1 Performed By: #### C SFCCDIFF, CSF TP, CSF TP #2, CSFCCDIFF #2, CSF PCR PANEL, GS, AERC, CSF GLU, CSF GLU #2 #### [facility] [address] [place] [address] Order Comment: Comme nt Tube 3 CSF Supernatant Color Colorless Normal Colorless [facility] Comment on above: Order Comment: Comme nt Tube 1 Performed By: #### C SFCCDIFF, CSF TP, CSF TP #2, CSFCCDIFF #2, CSF PCR PANEL, GS, AERC, CSF GLU, CSF GLU #2 #### [facility] [address] [place] [address] Order Comment: Comme nt Tube 3 CSF Volume, Total 14.0 mL Normal [facility] Comment on above: Order Comment: Comme nt Tube 1 Performed By: #### C SFCCDIFF, CSF TP, CSF TP #2, CSFCCDIFF #2, CSF PCR PANEL, GS, AERC, CSF GLU, CSF GLU #2 #### [facility] [address] [place] [address] Order Comment: Comme nt Tube 3 Eosinophil, CSF 0 % Normal 0-0 [facility] Comment on above: Order Comment: Comme nt Tube 1 Performed By: #### C SFCCDIFF, CSF TP, CSF TP #2, CSFCCDIFF #2, CSF PCR PANEL, GS, AERC, CSF GLU, CSF GLU #2 #### [facility] [address] [place] [address] Order Comment: Comme nt Tube 3 Lymphocytes, CSF 81 % High 40-80 [facility] Comment on above: Order Comment: Comme nt Tube 1 Performed By: #### C SFCCDIFF, CSF TP, CSF TP #2, CSFCCDIFF #2, CSF PCR PANEL, GS, AERC, CSF GLU, CSF GLU #2 #### [facility] [address] [place] [address] Monocytes, CSF 13 % Low 15-45 [facility] Comment on above: Order Comment: Comme nt Tube 1 Performed By: #### C SFCCDIFF, CSF TP, CSF TP #2, CSFCCDIFF #2, CSF PCR PANEL, GS, AERC, CSF GLU, CSF GLU #2 #### [address] Neutrophils, CSF 6 % Normal 0-6 [facility] Comment on above: Order Comment: Comme nt Tube 1 Performed By: #### C SFCCDIFF, CSF TP, CSF TP #2, CSFCCDIFF #2, CSF PCR PANEL, GS, AERC, CSF GLU, CSF GLU #2 #### [facility] [address] [place] [address] RBC, CSF 0 /uL Normal [facility] Comment on above: Order Comment: Comme nt Tube 1 Result Comment: The reference interval and other method performance specifications have not been established for this body fluid. The test result must be integrated into the clinical context for interpretation. Performed By: #### C SFCCDIFF, CSF TP, CSF TP #2, CSFCCDIFF #2, CSF PCR PANEL, GS, AERC, CSF GLU, CSF GLU #2 #### [address] Order Comment: Comme nt Tube 3 TNC, CSF 160 /uL Off scale high 0-5 [facility] Comment on above: Order Comment: Comme nt Tube 1 Result Comment: Crit ical value result called at 1732 on 06/05/22 Performed By: #### C SFCCDIFF, CSF TP, CSF TP #2, CSFCCDIFF #2, CSF PCR PANEL, GS, AERC, CSF GLU, CSF GLU #2 #### [place] [address] [place] Tube Number Tested, CSF Tube Number: 1 Normal [facility] Comment on above: Order Comment: Comme nt Tube 1 Result Comment: PERF ORMED BY: [place] [address] PATHOLOGIST PIGMENT PRESSER SUMEET GONZALEZ M.D. Performed By: #### C SFCCDIFF, CSF TP, CSF TP #2, CSFCCDIFF #2, CSF PCR PANEL, GS, AERC, CSF GLU, CSF GLU #2 #### [place] [address] [place] Cell Count Differential,CSF #2on 06-05-2022 Lymphocytes, CSF 87 % High 40-80 [facility] Comment on above: Order Comment: Comme nt Tube 3 Performed By: #### C SFCCDIFF, CSF TP, CSF TP #2, CSFCCDIFF #2, CSF PCR PANEL, GS, AERC, CSF GLU, CSF GLU #2 #### [place] [address] [place] Monocytes, CSF 9 % Low 15-45 [facility] Comment on above: Order Comment: Comme nt Tube 3 Performed By: #### C SFCCDIFF, CSF TP, CSF TP #2, CSFCCDIFF #2, CSF PCR PANEL, GS, AERC, CSF GLU, CSF GLU #2 #### [facility] [address] [place] [address] [place] Neutrophils, CSF 4 % Normal 0-6 [facility] Comment on above: Order Comment: Comme nt Tube 3 Performed By: #### C SFCCDIFF, CSF TP, CSF TP #2, CSFCCDIFF #2, CSF PCR PANEL, GS, AERC, CSF GLU, CSF GLU #2 #### [address] [place] [address] [place] TNC, CSF 110 /uL Off scale high 0-5 [facility] Comment on above: Order Comment: Comme nt Tube 3 Result Comment: Crit ical value result called at 1737 on 06/05/22 Performed By: #### C SFCCDIFF, CSF TP, CSF TP #2, CSFCCDIFF #2, CSF PCR PANEL, GS, AERC, CSF GLU, CSF GLU #2 #### [facility] [address] [place] [address] Tube Number Tested, CSF Tube Number: 3 Normal [facility] Comment on above: Order Comment: Comme nt Tube 3 Result Comment: PERF ORMED BY: [place] [address] PATHOLOGIST PIGMENT PRESSER SUMEET GONZALEZ M.D. Performed By: #### C SFCCDIFF, CSF TP, CSF TP #2, CSFCCDIFF #2, CSF PCR PANEL, GS, AERC, CSF GLU, CSF GLU #2 #### [address] Cerebrospinal fluid IgG inde xOrdered By: Lorelei Avery on 06-05-2022 IgG clearance/Albumin clearance (S+CSF) [Ratio] 0.8 0.0-0.7 [facility] Cerebrospinal fluid eosinoph il percentageOrdered By: Lorelei Avery on 06-05-2022 Eosinophils/100 WBC (CSF) 0 % 0-0 [facility] Cerebrospinal fluid lymphocy te percentageOrdered By: Lorelei Avery on 06-05-2022 Lymphocytes/Leukocytes Manual cnt (CSF) [Pure # fraction] 87 % 40-80 [facility] Cerebrospinal fluid monocyte percentageOrdered By: Lorelei Avery on 06-05-2022 Monocytes/100 WBC (CSF) 9 % 15-45 [facility] Cerebrospinal fluid neutroph il percentageOrdered By: Lorelei Avery on 06-05-2022 Neutrophils/100 WBC (CSF) 4 % 0-6 [facility] Cerebrospinal fluid post-suraj trifugation appearance determinationOrdered By: Lorelei Avery on 06-05-2022 Appearance (Spun CSF) Colorless Colorless [facility] Cerebrospinal fluid sample t ube volume measurementOrdered By: Lorelei Avery on 06-05-2022 Specimen volume (CSF) 14.[address] [facility] Color CSFOrdered By: Lorelei Avery on 06-05-2022 Color (CSF) Colorless Colorless [facility] HERNESTO Antibody Panelon 023 Anti-EPIC AMBULATORY ANALYST 0.2 Normal 0.0-0.9 [facility] Comment on above: Performed By: #### C SFCCDIFF, CSF TP, CSF TP #2, CSFCCDIFF #2, CSF PCR PANEL, GS, AERC, CSF GLU, CSF GLU #2 #### [address] Anti-Zamora Antibodies <0.2 Normal 0.0-0.[address] [facility] Comment on above: Performed By: #### C SFCCDIFF, CSF TP, CSF TP #2, CSFCCDIFF #2, CSF PCR PANEL, GS, AERC, CSF GLU, CSF GLU #2 #### [facility] [address] [place] [address] [place] Scleroderma 70 Antibodies 0.2 Normal 0.0-0.9 [facility] Comment on above: Result Comment: Perf ormed at: CB - [facility] [address] [id number] Medical Tech: Steve Fatima PhD, Phone: [phone] PERFORMED BY: [place] [address] PATHOLOGIST PIGMENT PRESSER SUMEET GONZALEZ M.D. Performed By: #### C SFCCDIFF, CSF TP, CSF TP #2, CSFCCDIFF #2, CSF PCR PANEL, GS, AERC, CSF GLU, CSF GLU #2 #### [place] [address] [place] SS-A/Ro Sjogrens Antibody 0.2 Normal 0.0-0.9 [facility] Comment on above: Performed By: #### C SFCCDIFF, CSF TP, CSF TP #2, CSFCCDIFF #2, CSF PCR PANEL, GS, AERC, CSF GLU, CSF GLU #2 #### [address] SS-B/La Sjogrens Antibody <0.2 Normal 0.0-0.9 [facility] Comment on above: Performed By: #### C SFCCDIFF, CSF TP, CSF TP #2, CSFCCDIFF #2, CSF PCR PANEL, GS, AERC, CSF GLU, CSF GLU #2 #### [place] [address] [place] Glucose, CSF #2on 06-05-2022 Glucose, CSF #2 46 mg/dL Normal 40-70 [facility] Comment on above: Order Comment: Comme nt Tube 3 Performed By: #### C SFCCDIFF, CSF TP, CSF TP #2, CSFCCDIFF #2, CSF PCR PANEL, GS, AERC, CSF GLU, CSF GLU #2 #### [place] [address] [place] Glucose, Spinal Fluidon 05-21 Glucose, Spinal Fluid 45 mg/dL Normal 40-[address] [facility] Comment on above: Order Comment: Comme nt Tube 1 Performed By: #### C SFCCDIFF, CSF TP, CSF TP #2, CSFCCDIFF #2, CSF PCR PANEL, GS, AERC, CSF GLU, CSF GLU #2 #### [address] Gram Stainon 06-05-2022 Microscopic observation Gram stain Nom (Unsp spec) Comment Tube 2 Gram Stain Result No Bacteria Seen 1+ White Blood Cells PERFORMED BY: [place] [address] PATHOLOGIST PIGMENT PRESSER SUMEET GONZALEZ M.D. [facility] Comment on above: Performed By: #### C SFCCDIFF, CSF TP, CSF TP #2, CSFCCDIFF #2, CSF PCR PANEL, GS, AERC, CSF GLU, CSF GLU #2 #### [address] Gram stain for investigation of transfusion reactionOrdered By: Lorelei Avery on 06-05-2022 Microscopic observation Gram stain Nom (Unsp spec) [facility] HIV 1/O/2 Antigen/Antibodyon 06-05-2022 HIV Screen 4th Generation Non-Reactive Normal Non Reactive [facility] Comment on above: Result Comment: HIV Negative HIV-1/HIV-2 antibodies and HIV-1 p24 antigen were NOT detected. There is no laboratory evidence of HIV infection. Performed at: [facility] [employer] [id number] Medical Tech: Steve Fatima PhD, Phone: [phone] PERFORMED BY: [address] [place] [address] PATHOLOGIST PIGMENT PRESSER SUMEET GONZALEZ M.D. Performed By: #### H IV SCREEN #### [facility] , HIV 1 and HIV-2 antibody ass ay with HIV-1 p24 antigen detectionOrdered By: Lorelei Avery on 06-05-2022 HIV 1+2 Ab+HIV1 p24 Ag IA Ql Non-Reactive Non Reactive [facility] Comment on above: HIV NegativeHIV-1/HI V-2 antibodies and HIV-1 p24 antigen were NOTdetected. There is no laboratory evidence of HIV infection.Performed at: [employer] [id number] Director: Steve Fatima PhD, Phone: [phone] IgG [Mass/volume] in Cerebra l spinal fluidOrdered By: Lorelei Avery on 06-05-2022 IgG (CSF) [Mass/Vol] 8.3 mg/dL 0.0-6.7 [facility] IgG [Mass/volume] in Serum o r PlasmaOrdered By: Lorelei Avery on 06-05-2022 IgG [Mass/Vol] 1274 mg/dL 719-1475 [facility] IgG synthesis rate [Mass/mily e] in Serum and CSF by calculationOrdered By: Lorelei Avery on 06-05-2022 IgG synthesis rate Calc (S+CSF) [Mass/Time] 13.9 mg/day -9.9 TO +3.3 [facility] Comment on above: Performed at: CB - [id number] [place], [place] [id number] Director: Steve Fatima PhD, Phone: [phone] Donta 06-05-2022 L ----- Specimen: [id number] Received: 06/06/22 Status: AMRITA Mike Num: [id number] Spec Type: Cytology Subm Dr: Kt Pearson DO Tissues: A CSF (CSF) Procedures: Cyto Prepstain, DIFF QWIK, PAPSTN Age/ Patient Sex Location Account Attending Physician Heena Wang 17/ [id number] Melo Diana MD SPEC NUM: [id number] RECD: 06/06/22 STATUS: AMRITA JAMESON NUM: [id number] RITU: 06/05/[address] [facility] [address]: Kt Pearson DO ENTERED: 06/06/22 [facility] DR: SPEC TYPE: Cytology DEPT: CNG ENTERED BY: [id number] RECV BY: [id number] ORDERED: Cyto Prepstain, DIFF QWIK, PAPSTN ORDERED: Cyto Prepstain, DIFF QWIK, PAPSTN Pathological Diagnosis Cerebrospinal fluid, cytospin, lumbar puncture: - Satisfactory for evaluation - Hypercellular specimen. - Atypical cells present with mixed population of cells including abundant lymphocytes, macrophages and occasional neutrophils. - Negative for malignant epithelial cells. 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 Clinical Information Urinary retention, numbness/tingling in legs Gross Description Received is 2 ml colorless clear unfixed fluid said to have been obtained as Lumbar Puncture.Cytospin slides are stained with Papanicolaou and Diff-Quik stains. (RS/nh) Specimen: [id number] Received: 06/06/22 Status: AMRITA Mike Num: [id number] Spec Type: Cytology Subm Dr: Kt Pearson DO Tissues: A CSF (CSF) Procedures: Cyto Prepstain, DIFF QWIK, PAPSTN Patient: WangHeena [id number] (Continued) Specimen: [id number] Received: 06/06/22 (Continued) Signed (signature on file) Heather Giron MD 06/06/22 1423 Specimen: [id number] Received: 06/06/22 Status: AMRITA Jameson Num: [id number] Spec Type: Cytology Subm Dr: Kt Pearson DO Tissues: A CSF (CSF) Procedures: Cyto Prepstain, DIFF QWIK, PAPSTN Patient: Heena Wang [id number] (Continued) Specimen: [id number] Received: 06/06/22 (Continued) CPT Codes 64827 Specimen: Received: 06/06/22 Status: AMRITA Jameson Num: [id number] Spec Type: Cytology Subm Dr: Kt Pearson DO Tissues: A CSF (CSF) Procedures: Cyto Prepstain, DIFF QCARITO LOUISE Patient: Heena Wang [id number] (Continued) Signed (signature on file) Heather Giron MD 06/06/22 1423 Normal [facility] - CoagulationOrde red By: Lorelei Avery on 06-05-2022 PT Coag (PPP) [Time] 13.4 s 9.0-12.9 [facility] MR head/brain wo/w conon MR head/brain wo/w con [facility] [place] [address] [place] [address] MRI Report Signed Patient: Heena Wang MR#: [id number] 5 : 2005 Acct:[id number] Age/Sex: 17 / F ADM Date: 06/02/22 Loc: Room: [address] [place] [address] Type: ADM IN Attending Dr: Melo Diana MD Copies to: DO Melo Lopez MD Ordering Provider: Kt Pearson DO Date of Service: 06/05/22 MR/MR head/brain wo/w con: rule out demyelinating disease, new paresthesias MR head/brain wo/w con 06/04/2022 9:54 AM SIGN AND SYMPTOMS: Urinary retention, bilateral lower extremity paresthesias, history of Flagyl treatment, recent abnormal thoracic spine MRI PROTOCOL: Multiplanar multisequence MR images of the brain were obtained with and without IV contrast CONTRAST: 16 mL of intravenous ProHance COMPARISON: None. FINDINGS: Extra axial spaces: Age appropriate. Hemorrhage: None. Ventricular system: Within normal limits. Basal cisterns: Within normal limits and not effaced. Cerebral parenchyma: There is T2 and T2 FLAIR hyperintense signal in the cortex and subcortical white matter of the left frontal lobe in the expected location of the accessory motor cortex without corresponding diffusion restriction or abnormal postcontrast enhancement. Midline shift: None.. Cerebellum: Within normal limits. Brainstem: There is T2 and FLAIR hyperintense signal in the pontine white matter slightly to the right of midline without accompanying diffusion restriction. There is subtle enhancement in this location on postcontrast T1-weighted imaging. OTHER: Calvarium: Normal marrow signal. Vascular system: Satisfactory flow voids within the anterior and posterior circulation. Visualized Paranasal sinuses: Within normal limits. Visualized Orbits: Within normal limits. Visualized upper cervical spine: Within normal limits. Sella and skull base: Within normal limits. MR/MR head/brain wo/w con IMPRESSION: There is T2 and T2 FLAIR hyperintense signal in the cortex and subcortical white matter of the left frontal lobe in the expected location of the accessory motor cortex without corresponding diffusion restriction or abnormal postcontrast enhancement. There is T2 and FLAIR hyperintense signal in the pontine white matter slightly to the right of midline without accompanying diffusion restriction. There is subtle enhancement in this location on postcontrast T1-weighted imaging. This may be inflammatory/demyelinatin g in nature. The differential would include but is not limited to multiple sclerosis, toxic encephalomyelitis, or or acute disseminated encephalomyelitis. Impression dictated by: Cnonor Mae M.D.06/05/2022 12:43 PM Dictation Location: [place] [address] Transcribed By: [facility] 06/05/22 1243 Dictated By: Connor Mae II, MD 06/05/22 1224 Signed By: 06/05/22 1243 Normal [facility] Manual cerebrospinal fluid e rythrocytes count (number/volume)Ordered By: Lorelei Avery on 06-05-2022 RBC Manual cnt (CSF) [#/Vol] 0 /uL [facility] Comment on above: The reference interv al and other method performance specifications have not been established for this body fluid. The test result must be integrated into the clinical context for interpretation. No Panel InformationOrdered By: Lorelei Avery on 06-05-2022 CSF Appearance Clear Clear [facility] CSF Glucose 46 mg/dL 40-70 [facility] CSF Total Protein 59 mg/dL 15-45 [facility] CSF Tube Number Tube number: 1 [facility] No Panel InformationOrdered By: Kt Pearson on 06-05-2022 Anti-Nuclear Antibody Comment 2 See comment . [facility] Comment on above: For more information about Hep-2 cell patterns useOutskipatterns.org, the official website for the InternationalConsensus on Antinuclear Antibody (LIZZY) Patterns (ICAP). ----A positive LIZZY result may occur in healthy individuals (lowtiter) or be associated with a variety of diseases. Seeinterpretation chart which is not all inclusive:Pattern Antigen Detected Suggested Disease Association Homogeneous DNA(ds,ss), SLE - High titers Nucleosomes, Histones Drug-induced SLE Speckled Sm, EPIC AMBULATORY ANALYST, SCL-70, SLE,MCTD,PSS (diffuse form), SS-A/SS-B Sjogrens Nucleolar SCL-70, PM-1/SCL High titers Scleroderma, PM/DM Centromere Centromere PSS (limited form) w/Crest syndrome variable Nuclear Dot Sp100,g31-[id number] Primary Biliary Cirrhosis Nuclear GP210, Primary Biliary CirrhosisMembrane miranda A,B,C Performed at: [address] [id number] Director: Steve Fatima PhD, Phone: [phone] EPIC AMBULATORY ANALYST Antibody 0.2 AI 0.0-0.9 [facility] Nucleated cells [#/volume] i n Cerebral spinal fluid by Manual countOrdered By: Lorelei Avery on 06-05-2022 Nucleated cells Manual cnt (CSF) [#/Vol] 0.16 10*3/uL 0-5 [facility] Comment on above: Critical valueresult calledat 1732 on 06/05/22 Partial Thromboplastin Timeo n 06-05-2022 aPTT Coag (Bld) [Time] 32.1 s Normal 25.1-36.5 [facility] Comment on above: Result Comment: PERF ORMED BY: [facility] [address] [place] [address] PATHOLOGIST PIGMENT PRESSER SUMEET GONZALEZ M.D. Performed By: #### C SFCCDIFF, CSF TP, CSF TP #2, CSFCCDIFF #2, CSF PCR PANEL, GS, AERC, CSF GLU, CSF GLU #2 #### [facility] [address] Platelet poor plasma interna tional normalized ratio (INR) by coagulation assay (relatOrdered By: Lorelei Avery on 06-05-2022 INR Coag (PPP) [Relative time] 1.2 {INR} [facility] Comment on above: INR Therapeutic Rang e A) Pre- and Peroperative OAT started two weeks before surgery. NOT HIP SURGERY: 1.5 - 2.5 HIP SURGERY: 2 - 3B) Primary and secondary prevention of venous THROMBOSIS: 2 - 3C) Active venous thrombosis, pulmonary embolismand prevention of recurrent venous thrombosis: 2 - 3D) Prevention of arterial thromboembolismincluding patients with mechanical heart valves: 3 - 4.5 Prothrombin Time INRon 06-05 INR Coag (PPP) [Relative time] 1.2 {INR} Normal [facility] Comment on above: Result Comment: INR Therapeutic Range A) Pre- and Peroperative OAT started two weeks before surgery. NOT HIP SURGERY: 1.5 - 2.5 HIP SURGERY: 2 - 3 B) Primary and secondary prevention of venous THROMBOSIS: 2 - 3 C) Active venous thrombosis, pulmonary embolism and prevention of recurrent venous thrombosis: 2 - 3 D) Prevention of arterial thromboembolism including patients with mechanical heart valves: 3 - 4.5 Performed By: #### C SFCCDIFF, CSF TP, CSF TP #2, CSFCCDIFF #2, CSF PCR PANEL, GS, AERC, CSF GLU, CSF GLU #2 #### [facility] [address] [place] [address] PT Coag (PPP) [Time] 13.4 s High 9.0-12.9 [facility] Comment on above: Performed By: #### C SFCCDIFF, CSF TP, CSF TP #2, CSFCCDIFF #2, CSF PCR PANEL, GS, AERC, CSF GLU, CSF GLU #2 #### [facility] [address] [place] [address] RFX MOG Titeron 06-05-2022 RFX MOG Titer 1:32 Normal Neg: <1:10 [facility] Comment on above: Result Comment: This test was developed and its performance characteristics determined by [facility]. It has not been cleared or approved by the Food and Drug Administration. Performed at: [address] [id number] Medical Tech: Jeremías Retana MD, Phone: [phone] PERFORMED BY: [place] [address] PATHOLOGIST PIGMENT PRESSER SUMEET GONZALEZ M.D. Performed By: #### C SFCCDIFF, CSF TP, CSF TP #2, CSFCCDIFF #2, CSF PCR PANEL, GS, AERC, CSF GLU, CSF GLU #2 #### [facility] [address] Scl-70 antibody assayOrdered By: Kt Pearson on 06-05-2022 SCL-70 extractable nuclear Ab IA Qn (S) 0.2 AI 0.0-0.9 [facility] Comment on above: Performed at: [employer] [address] [id number] Director: Steve Fatima PhD, Phone: [phone] Serum Sjogrens syndrome-A ex tractable nuclear antibody assay (units/volume)Ordered By: Kt Pearson on 06-05-2022 Sjogrens syndrome-A extractable nuclear Ab Qn (S) 0.2 AI 0.0-0.9 [facility] Serum Sjogrens syndrome-B ex tractable nuclear antibody assay (units/volume)Ordered By: Kt Pearson on 06-05-2022 Sjogrens syndrome-B extractable nuclear Ab Qn (S) <0.2 AI 0.0-0.9 [facility] Serum Zamora extractable nucl ear antigen (HERNESTO) antibody assay (units/volume)Ordered By: Kt Pearson on 06-05-2022 Zamora extractable nuclear Ab Qn (S) <0.2 AI 0.0-0.9 [facility] Serum angiotensin converting enzyme (SUSIE) measurementOrdered By: Kt Pearson on 06-05-2022 Angiotensin converting enzyme [Catalytic activity/Vol] 26 U/L 14-82 [facility] Comment on above: Performed at: [employer] [id number] Director: Steve Fatima PhD, Phone: [phone] Serum homogeneous pattern an tinuclear antibody (LIZZY) titerOrdered By: Kt Pearson on 06-05-2022 Homogenous nuclear Ab pattern (S) [Titer] 1:160 . [facility] Comment on above: ICAP nomenclature: A C-1 Serum nuclear antibody titer Ordered By: Kt Pearson on 06-05-2022 Nuclear Ab (S) [Titer] Positive . [facility] Comment on above: Negative <1:80 Borde rline 1:80 Positive >1:80 Total Protein, CSF #2on - Total Protein, CSF #2 59 mg/dL High 15-[address] [facility] Comment on above: Order Comment: Comme nt Tube 3 Result Comment: PERF ORMED BY: [place] [address] PATHOLOGIST PIGMENT PRESSER SUMEET GONZALEZ M.D. Performed By: #### C SFCCDIFF, CSF TP, CSF TP #2, CSFCCDIFF #2, CSF PCR PANEL, GS, AERC, CSF GLU, CSF GLU #2 #### [facility] [address] [place] [address] Total Protein, Spinal Fluido n 06-05-2022 Total Protein, Spinal Fluid 61 mg/dL High -45 [facility] Comment on above: Order Comment: Comme nt Tube 1 Result Comment: PERF ORMED BY: [place] [address] PATHOLOGIST PIGMENT PRESSER SUMEET GONZALEZ M.D. Performed By: #### C SFCCDIFF, CSF TP, CSF TP #2, CSFCCDIFF #2, CSF PCR PANEL, GS, AERC, CSF GLU, CSF GLU #2 #### [facility] [address] [place] [address] CT abdomen pelvis w conon CT abdomen pelvis w con [place] [address] CT Scan Report Signed Patient: Heena Wang MR#: [id number] 5 : 2005 Acct:[id number] Age/Sex: 17 / F ADM Date: 06/02/22 Loc: Room: [address] [place] [address] Type: ADM IN Attending Dr: Ravi Zhang DO Copies to: Ravi Zhang DO Ordering Provider: Ravi Zhang DO Date of Service: 06/04/22 CT/CT abdomen pelvis w con: urinary retention, vaginal discharge CT abdomen and pelvis withcontrast TECHNIQUE: Axial imaging with 2-D reconstruction.90 cc of Isovue-300. The CT exam was performed using one or more the following dose reduction techniques: Automated exposure control, adjustment of the MA and/or Kv according to patient size, or use of the iterative reconstruction technique. COMPARISON:None History: Urinary retention. Vaginal discharge. Lower extremity weakness. Lung bases are unremarkable. No hepatic mass or intrahepatic biliary ductal dilatation identified. Normal density of the liver parenchyma identified. No gallbladder abnormality identified. No extrahepatic biliary ductal dilatation identified. There is no splenomegaly or splenic mass identified. No pancreatic mass or ductal dilatation identified. The adrenal glands are unremarkable. No nephrolithiasis or obstructive uropathy is identified. No abdominal aortic aneurysm identified. No significant retroperitoneal abnormalities identified. The small bowel loops are nondistended. The appendix is normal. There is no colonic wall thickening, distention or pericolonic inflammatory changes. A moderate amount of stool. Rodas catheter in the moderately distended urinary bladder. Air in urinary bladder likely related to catheterization. Reproductive structures are unremarkable. No free intraperitoneal air or fluid is identified. Scoliosis. Patent bony central canal. No acute bony findings. No subcutaneous soft tissue abnormality identified. CT/CT abdomen pelvis w con IMPRESSION: No acute findings. A moderate burden of stool in the colon. Adequate position of Rodas catheter with moderate urinary bladder distention. Impression dictated by: Jamie Wheatley M.D.06/04/2022 12:51 PM Dictation Location: [place] [address] Transcribed By: [facility] 06/04/22 1251 Dictated By: Jamie Wheatley DO 06/04/22 1248 Signed By: 06/04/22 1251 Normal [facility] Chlamydia trachomatis DNA [P resence] in Specimen by TERESA with probe detectionOrdered By: Isaías Pan on 06-04-2022 C. trachomatis DNA TERESA+probe Ql (Unsp spec) Negative Negative [facility] Chlamydia/GC/Trich NAAon Chlamydia Trachomotis, TERESA Negative Normal Negative [facility] Comment on above: Order Comment: Comme nt Tube 1 Performed By: #### C SFCCDIFF, CSF TP, CSF TP #2, CSFCCDIFF #2, CSF PCR PANEL, GS, AERC, CSF GLU, CSF GLU #2 #### [facility] [address] [place] [address] Neisseria Gonorrhoeae, TERESA Negative Normal Negative [facility] Comment on above: Order Comment: Comme nt Tube 1 Performed By: #### C SFCCDIFF, CSF TP, CSF TP #2, CSFCCDIFF #2, CSF PCR PANEL, GS, AERC, CSF GLU, CSF GLU #2 #### [address] Trichomonas TERESA Negative Normal Negative [facility] Comment on above: Order Comment: Comme nt Tube 1 Result Comment: Perf ormed at: =G - [facility] [address] [id number] Medical Tech: Evelyn Arnold MD, Phone: [phone] PERFORMED BY: [place] [address] PATHOLOGIST PIGMENT PRESSER SUMEET GONZALEZ M.D. Performed By: #### C SFCCDIFF, CSF TP, CSF TP #2, CSFCCDIFF #2, CSF PCR PANEL, GS, AERC, CSF GLU, CSF GLU #2 #### [address] Fungal Smearon 06-04-2022 Fungal Smear Fungus Smear Results No Yeast Like Elements Seen ---- Trichomonas Screen No Trichomonas Seen Trich Reference Reference range = None Seen PERFORMED BY: [place] [address] PATHOLOGIST PIGMENT PRESSER SUMEET GONZALEZ M.D. Normal [facility] Comment on above: Performed By: #### C SFCCDIFF, CSF TP, CSF TP #2, CSFCCDIFF #2, CSF PCR PANEL, GS, AERC, CSF GLU, CSF GLU #2 #### [address] Fungal cultureOrdered By: Mónica Pan on 06-04-2022 Fungus identified Cx Nom (Unsp spec) [facility] HSV Culture and Typingon HSV Culture and Typing Abnormal . 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 Typing was confirmed by monoclonal antibody microscopic immunofluorescence. Performed at: [address] [id number] Medical Tech: Steve Fatima PhD, Phone: [phone] PERFORMED BY: [place] [address] PATHOLOGIST PIGMENT PRESSER SUMEET GONZALEZ M.D. Performed By: #### C SFCCDIFF, CSF TP, CSF TP #2, CSFCCDIFF #2, CSF PCR PANEL, GS, AERC, CSF GLU, CSF GLU #2 #### [address] Herpes simplex virus (HSV) c ulture with typingOrdered By: Isaías Pan on 06-04-2022 HSV identified Org specific cx Nom (Unsp spec) See comment . [facility] Comment on above: Positive for Herpes simplex virus type-2. Typing wasconfirmed by monoclonal antibody microscopicimmunofluorescence.Performed at: [address] [id number] Director: Steve Fatima PhD, Phone: [phone] Neisseria gonorrhoeae DNA [P resence] in Specimen by TERESA with probe detectionOrdered By: Isaías Pan on 06-04-2022 N. gonorrhoeae DNA TERESA+probe Ql (Unsp spec) Negative Negative [facility] Trichomonas vaginalis DNA [P resence] in Specimen by TERESA with probe detectionOrdered By: Isaías Pan on 06-04-2022 T. vaginalis DNA TERESA+probe Ql (Unsp spec) Negative Negative [facility] Comment on above: Performed at: =[facility] [address] [id number] Director: Evelyn Arnold MD, Phone: [phone] Trichomonas vaginalis detect ion by wet preparationOrdered By: Isaías Pan on 06-04-2022 T. vaginalis Wet prep Ql (Unsp spec) [facility] A1C with Estimated Average G lluan 06-03-2022 Glucose [Mass/Vol] 103 mg/dL Normal [facility] Comment on above: Result Comment: PERF ORMED BY: [place] [address] PATHOLOGIST PIGMENT PRESSER SUMEET GONZALEZ M.D. Performed By: #### C SFCCDIFF, CSF TP, CSF TP #2, CSFCCDIFF #2, CSF PCR PANEL, GS, AERC, CSF GLU, CSF GLU #2 #### [address] HbA1c (Bld) [Mass fraction] 5.2 % Normal 4.3-5.6 [facility] Comment on above: Result Comment: Incr eased risk for diabetes: 5.7 - 6.4 diabetes: >6.4 glycemic control for adults with diabetes: <7.0 Performed By: #### C SFCCDIFF, CSF TP, CSF TP #2, CSFCCDIFF #2, CSF PCR PANEL, GS, AERC, CSF GLU, CSF GLU #2 #### [address] Basic Metabolic Panelon 05-21 Anion gap [Moles/Vol] 13.7 mmol/L Normal 6.0-15.0 [facility] Comment on above: Performed By: #### C SFCCDIFF, CSF TP, CSF TP #2, CSFCCDIFF #2, CSF PCR PANEL, GS, AERC, CSF GLU, CSF GLU #2 #### [address] Calcium [Mass/Vol] 8.5 mg/dL Normal 8.2-10.2 [facility] Comment on above: Performed By: #### C SFCCDIFF, CSF TP, CSF TP #2, CSFCCDIFF #2, CSF PCR PANEL, GS, AERC, CSF GLU, CSF GLU #2 #### [place] [address] [place] Chloride [Moles/Vol] 102 mmol/L Normal 95-114 [facility] Comment on above: Performed By: #### C SFCCDIFF, CSF TP, CSF TP #2, CSFCCDIFF #2, CSF PCR PANEL, GS, AERC, CSF GLU, CSF GLU #2 #### [facility] [address] CO2 [Moles/Vol] 23.8 mmol/L Normal 22.0-30.0 [facility] Comment on above: Performed By: #### C SFCCDIFF, CSF TP, CSF TP #2, CSFCCDIFF #2, CSF PCR PANEL, GS, AERC, CSF GLU, CSF GLU #2 #### [facility] [address] Creatinine [Mass/Vol] 0.79 mg/dL Normal 0.44-1.[address] [facility] Comment on above: Performed By: #### C SFCCDIFF, CSF TP, CSF TP #2, CSFCCDIFF #2, CSF PCR PANEL, GS, AERC, CSF GLU, CSF GLU #2 #### [facility] [address] Creatinine Clr Calc Pharmacy 140.50 [facility] Comment on above: Performed By: #### C SFCCDIFF, CSF TP, CSF TP #2, CSFCCDIFF #2, CSF PCR PANEL, GS, AERC, CSF GLU, CSF GLU #2 #### [facility] [address] Estimated GFR ( Jannet > 60 [facility] Comment on above: Result Comment: GFR estimated reference range: According to KDOQI guidelines, <60 ml/min/1.73m2 is sufficient to diagnose a patient with chronic kidney disease. Performed By: #### C SFCCDIFF, CSF TP, CSF TP #2, CSFCCDIFF #2, CSF PCR PANEL, GS, AERC, CSF GLU, CSF GLU #2 #### [facility] [address] Estimated GFR (Non- Am > 60 [facility] Comment on above: Performed By: #### C SFCCDIFF, CSF TP, CSF TP #2, CSFCCDIFF #2, CSF PCR PANEL, GS, AERC, CSF GLU, CSF GLU #2 #### [facility] [address] Glucose [Mass/Vol] 106 mg/dL High 70-100 [facility] Comment on above: Result Comment: [place] Glucose Reference Range is dependent on time and content of last meal. Glucose of more than 200 mg/dL in a nonstressed, ambulatory subject supports the diagnosis of Diabetes Mellitus. ADA recommended reference range Performed By: #### C SFCCDIFF, CSF TP, CSF TP #2, CSFCCDIFF #2, CSF PCR PANEL, GS, AERC, CSF GLU, CSF GLU #2 #### [address] Potassium [Moles/Vol] 3.5 mmol/L Normal 3.5-5.[address] [facility] Comment on above: Performed By: #### C SFCCDIFF, CSF TP, CSF TP #2, CSFCCDIFF #2, CSF PCR PANEL, GS, AERC, CSF GLU, CSF GLU #2 #### [facility] [address] Sodium [Moles/Vol] 136 mmol/L Normal 136-146 [facility] Comment on above: Performed By: #### C SFCCDIFF, CSF TP, CSF TP #2, CSFCCDIFF #2, CSF PCR PANEL, GS, AERC, CSF GLU, CSF GLU #2 #### [facility] [address] [place] [address] [place] Urea nitrogen [Mass/Vol] 7 mg/dL Low 9-23 [facility] Comment on above: Performed By: #### C SFCCDIFF, CSF TP, CSF TP #2, CSFCCDIFF #2, CSF PCR PANEL, GS, AERC, CSF GLU, CSF GLU #2 #### [place] [address] [place] C-Reactive Proteinon 01-14-2 023 C-Reactive Protein 0.6 mg/dL Normal 0.0-1.0 [facility] Comment on above: Performed By: #### C SFCCDIFF, CSF TP, CSF TP #2, CSFCCDIFF #2, CSF PCR PANEL, GS, AERC, CSF GLU, CSF GLU #2 #### [address] Complete Blood Count Auto Di ffon 06-03-2022 Basophils (Bld) [#/Vol] 0.1 10*3/uL Normal 0.0-0.2 [facility] Comment on above: Performed By: #### C SFCCDIFF, CSF TP, CSF TP #2, CSFCCDIFF #2, CSF PCR PANEL, GS, AERC, CSF GLU, CSF GLU #2 #### [address] Basophils/100 WBC (Bld) 2.0 % Normal . [facility] Comment on above: Performed By: #### C SFCCDIFF, CSF TP, CSF TP #2, CSFCCDIFF #2, CSF PCR PANEL, GS, AERC, CSF GLU, CSF GLU #2 #### [place] [address] [place] Eosinophils (Bld) [#/Vol] 0.1 10*3/uL Normal 0.0-0.45 [facility] Comment on above: Performed By: #### C SFCCDIFF, CSF TP, CSF TP #2, CSFCCDIFF #2, CSF PCR PANEL, GS, AERC, CSF GLU, CSF GLU #2 #### [place] [address] [place] Eosinophils/100 WBC (Bld) 0.9 % Normal . [facility] Comment on above: Performed By: #### C SFCCDIFF, CSF TP, CSF TP #2, CSFCCDIFF #2, CSF PCR PANEL, GS, AERC, CSF GLU, CSF GLU #2 #### [address] Erythrocyte distribution width (RBC) [Ratio] 13.6 % Normal 11.9-15.3 [facility] Comment on above: Performed By: #### C SFCCDIFF, CSF TP, CSF TP #2, CSFCCDIFF #2, CSF PCR PANEL, GS, AERC, CSF GLU, CSF GLU #2 #### [address] Hematocrit (Bld) [Volume fraction] 40.4 % Normal 34.0-46.4 [facility] Comment on above: Performed By: #### C SFCCDIFF, CSF TP, CSF TP #2, CSFCCDIFF #2, CSF PCR PANEL, GS, AERC, CSF GLU, CSF GLU #2 #### [address] Hemoglobin (Bld) [Mass/Vol] 13.3 g/dL Normal 11.8-15.4 [facility] Comment on above: Performed By: #### C SFCCDIFF, CSF TP, CSF TP #2, CSFCCDIFF #2, CSF PCR PANEL, GS, AERC, CSF GLU, CSF GLU #2 #### [address] Lymphocytes (Bld) [#/Vol] 2.9 10*3/uL Normal 1.00-4.8 [facility] Comment on above: Performed By: #### C SFCCDIFF, CSF TP, CSF TP #2, CSFCCDIFF #2, CSF PCR PANEL, GS, AERC, CSF GLU, CSF GLU #2 #### [address] Lymphocytes/100 WBC (Bld) 42.0 % Normal . [facility] Comment on above: Performed By: #### C SFCCDIFF, CSF TP, CSF TP #2, CSFCCDIFF #2, CSF PCR PANEL, GS, AERC, CSF GLU, CSF GLU #2 #### [address] MCH (RBC) [Entitic mass] 29.4 pg Normal 24.7-34.3 [facility] Comment on above: Performed By: #### C SFCCDIFF, CSF TP, CSF TP #2, CSFCCDIFF #2, CSF PCR PANEL, GS, AERC, CSF GLU, CSF GLU #2 #### [facility] [address] MCV (RBC) [Entitic vol] 89.1 fL Normal 80-100 [facility] Comment on above: Performed By: #### C SFCCDIFF, CSF TP, CSF TP #2, CSFCCDIFF #2, CSF PCR PANEL, GS, AERC, CSF GLU, CSF GLU #2 #### [facility] [address] Mean Corpuscular HGB Conc 33.0 g/dL Normal 32.0-35.0 [facility] Comment on above: Performed By: #### C SFCCDIFF, CSF TP, CSF TP #2, CSFCCDIFF #2, CSF PCR PANEL, GS, AERC, CSF GLU, CSF GLU #2 #### [address] Monocytes (Bld) [#/Vol] 0.6 10*3/uL Normal 0.0-0.8 [facility] Comment on above: Performed By: #### C SFCCDIFF, CSF TP, CSF TP #2, CSFCCDIFF #2, CSF PCR PANEL, GS, AERC, CSF GLU, CSF GLU #2 #### [address] Monocytes/100 WBC (Bld) 9.4 % Normal . [facility] Comment on above: Performed By: #### C SFCCDIFF, CSF TP, CSF TP #2, CSFCCDIFF #2, CSF PCR PANEL, GS, AERC, CSF GLU, CSF GLU #2 #### [facility] [address] Neutrophils (Bld) [#/Vol] 3.1 10*3/uL Normal 1.8-7.7 [facility] Comment on above: Performed By: #### C SFCCDIFF, CSF TP, CSF TP #2, CSFCCDIFF #2, CSF PCR PANEL, GS, AERC, CSF GLU, CSF GLU #2 #### [facility] [address] Neutrophils/100 WBC (Bld) 45.7 % Normal . [facility] Comment on above: Performed By: #### C SFCCDIFF, CSF TP, CSF TP #2, CSFCCDIFF #2, CSF PCR PANEL, GS, AERC, CSF GLU, CSF GLU #2 #### [facility] [address] NRBC% 0.3 /100{WBC} Normal 0-0.5 [facility] Comment on above: Performed By: #### C SFCCDIFF, CSF TP, CSF TP #2, CSFCCDIFF #2, CSF PCR PANEL, GS, AERC, CSF GLU, CSF GLU #2 #### [address] Platelet mean volume (Bld) [Entitic vol] 9.5 fL Normal 6.3-10.7 [facility] Comment on above: Performed By: #### C SFCCDIFF, CSF TP, CSF TP #2, CSFCCDIFF #2, CSF PCR PANEL, GS, AERC, CSF GLU, CSF GLU #2 #### [place] [address] [place] Platelets (Bld) [#/Vol] 242 10*3/uL Normal 150-450 [facility] Comment on above: Performed By: #### C SFCCDIFF, CSF TP, CSF TP #2, CSFCCDIFF #2, CSF PCR PANEL, GS, AERC, CSF GLU, CSF GLU #2 #### [address] RBC (Bld) [#/Vol] 4.54 10*6/uL Normal 3.60-5.00 [facility] Comment on above: Performed By: #### C SFCCDIFF, CSF TP, CSF TP #2, CSFCCDIFF #2, CSF PCR PANEL, GS, AERC, CSF GLU, CSF GLU #2 #### [facility] [address] WBC (Bld) [#/Vol] 6.9 10*3/uL Normal 3.8-11.6 [facility] Comment on above: Performed By: #### C SFCCDIFF, CSF TP, CSF TP #2, CSFCCDIFF #2, CSF PCR PANEL, GS, AERC, CSF GLU, CSF GLU #2 #### [address] Erythrocyte Sedimentation Ra amanda 06-03-2022 ESR (Bld) [Velocity] 26 mm/h High 0-19 [facility] Comment on above: Result Comment: PERF ORMED BY: [place] [address] PATHOLOGIST PIGMENT PRESSER SUMEET GONZALEZ M.D. Performed By: #### C SFCCDIFF, CSF TP, CSF TP #2, CSFCCDIFF #2, CSF PCR PANEL, GS, AERC, CSF GLU, CSF GLU #2 #### [address] Free T4 (Free Thyroxine)on 0 06-03-2022 Free T4 [Mass/Vol] 0.96 ng/dL Normal 0.61-1.12 [facility] Comment on above: Performed By: #### C SFCCDIFF, CSF TP, CSF TP #2, CSFCCDIFF #2, CSF PCR PANEL, GS, AERC, CSF GLU, CSF GLU #2 #### [address] Hepatic Panelon 06-03-2022 Albumin [Mass/Vol] 3.5 g/dL Normal 3.2-5.5 [facility] Comment on above: Performed By: #### C SFCCDIFF, CSF TP, CSF TP #2, CSFCCDIFF #2, CSF PCR PANEL, GS, AERC, CSF GLU, CSF GLU #2 #### [address] Albumin/Globulin [Mass ratio] 0.9 {ratio} Normal [facility] Comment on above: Performed By: #### C SFCCDIFF, CSF TP, CSF TP #2, CSFCCDIFF #2, CSF PCR PANEL, GS, AERC, CSF GLU, CSF GLU #2 #### [facility] [address] ALP [Catalytic activity/Vol] 60 U/L Normal 32-92 [facility] Comment on above: Performed By: #### C SFCCDIFF, CSF TP, CSF TP #2, CSFCCDIFF #2, CSF PCR PANEL, GS, AERC, CSF GLU, CSF GLU #2 #### [facility] [address] ALT [Catalytic activity/Vol] 26 U/L Normal 1060 [facility] Comment on above: Performed By: #### C SFCCDIFF, CSF TP, CSF TP #2, CSFCCDIFF #2, CSF PCR PANEL, GS, AERC, CSF GLU, CSF GLU #2 #### [address] AST [Catalytic activity/Vol] 31 U/L Normal 10 [facility] Comment on above: Performed By: #### C SFCCDIFF, CSF TP, CSF TP #2, CSFCCDIFF #2, CSF PCR PANEL, GS, AERC, CSF GLU, CSF GLU #2 #### [address] Bilirubin [Mass/Vol] 0.9 mg/dL Normal 0.3-1.2 [facility] Comment on above: Performed By: #### C SFCCDIFF, CSF TP, CSF TP #2, CSFCCDIFF #2, CSF PCR PANEL, GS, AERC, CSF GLU, CSF GLU #2 #### [address] Bilirubin,Indirect 0.7 mg/dL Normal [facility] Comment on above: Performed By: #### C SFCCDIFF, CSF TP, CSF TP #2, CSFCCDIFF #2, CSF PCR PANEL, GS, AERC, CSF GLU, CSF GLU #2 #### [address] Bilirubin.indirect [Mass/Vol] 0.2 mg/dL Normal 0.0-0.4 [facility] Comment on above: Performed By: #### C SFCCDIFF, CSF TP, CSF TP #2, CSFCCDIFF #2, CSF PCR PANEL, GS, AERC, CSF GLU, CSF GLU #2 #### [facility] [address] Globulin (S) [Mass/Vol] 3.7 g/dL Normal [facility] Comment on above: Performed By: #### C SFCCDIFF, CSF TP, CSF TP #2, CSFCCDIFF #2, CSF PCR PANEL, GS, AERC, CSF GLU, CSF GLU #2 #### [facility] [address] Protein [Mass/Vol] 7.2 g/dL Normal 6.1-7.9 [facility] Comment on above: Performed By: #### C SFCCDIFF, CSF TP, CSF TP #2, CSFCCDIFF #2, CSF PCR PANEL, GS, AERC, CSF GLU, CSF GLU #2 #### [facility] [address] MR thoracic spine wo/w conon 06-03-2022 MR thoracic spine wo/w [place] [address] MRI Report Signed with Addenda Patient: Heena Wang MR#: [id number] 5 : 2005 Acct:[id number] Age/Sex: 17 / F ADM Date: 06/02/22 Loc: Room: [address] [place] [address] Type: ADM IN Attending Dr: Ravi Zhang DO Copies to: Ravi Zhang DO Ordering Provider: Ravi Zhang DO Date of Service: 06/03/22 MR/MR thoracic spine wo/w con: paresthesias from umbilicus to toes ADDENDUM 1 Bilateral central increased signal T2 changes of the lower thoracic cord identified. Impression dictated by: Jamie Wheatley M.D.06/04/2022 2:19 PM Dictation Location: [place] [address] Addendum Dictated By: Jamie Wheatley DO Addendum Signed By: 06/04/221418 Addendum Cosigned By: DD/ TD/TT: 06/04/22 MRI THORACIC SPINE WITH AND WITHOUT CONTRAST TECHNIQUE: T1, T2 and STIR sagittal imaging performed with T1 and T2 axial imaging of thoracic spine performed. 16 cc of ProHance HISTORY:Bilateral numbness and tingling of the lower extremities. The thoracic kyphosis is preserved. S-shaped thoracolumbar scoliosis. Lumbar and cervical localizer imaging grossly unremarkable. No acute compression deformity of vertebral bodies identified. The disc spaces of the thoracic spine are maintained. The facets are in adequate alignment without vertebral displacement. There is no identification of acute hemorrhage within the bony spinal canal or other acute spinal canal process. No paraspinal abnormality is identified. The visualized lung seals are unremarkable. The visualized aorta is unremarkable. No obstructive uropathy identified. No pathologic enhancement. MR/MR thoracic spine wo/w con IMPRESSION: No acute bony process scoliosis. No pathologic enhancement. Impression dictated by: Jamie Wheatley M.D.06/03/2022 1:48 PM Dictation Location: [place] [address] Transcribed By: [facility] 06/03/22 1348 Dictated By: Jamie Wheatley DO 06/03/22 1342 Signed By: 06/03/22 1348 Normal [facility] Magnesiumon 06-03-2022 Magnesium [Mass/Vol] 2.1 mg/dL Normal 1.6-2.6 [facility] Comment on above: Performed By: #### C SFCCDIFF, CSF TP, CSF TP #2, CSFCCDIFF #2, CSF PCR PANEL, GS, AERC, CSF GLU, CSF GLU #2 #### [address] Partial Thromboplastin Timeo n 06-03-2022 aPTT Coag (Bld) [Time] 31.4 s Normal 25.1-36.5 [facility] Comment on above: Result Comment: PERF ORMED BY: [place] [address] PATHOLOGIST PIGMENT PRESSER SUMEET GONZALEZ M.D. Performed By: #### C SFCCDIFF, CSF TP, CSF TP #2, CSFCCDIFF #2, CSF PCR PANEL, GS, AERC, CSF GLU, CSF GLU #2 #### [place] [id number] [facility] Phosphoruson 06-03-2022 Phosphate [Mass/Vol] 3.8 mg/dL Normal 2.5-4.6 [facility] Comment on above: Performed By: #### C SFCCDIFF, CSF TP, CSF TP #2, CSFCCDIFF #2, CSF PCR PANEL, GS, AERC, CSF GLU, CSF GLU #2 #### [address] Prothrombin Time INRon 06-03 INR Coag (PPP) [Relative time] 1.2 {INR} Normal [facility] Comment on above: Result Comment: INR Therapeutic Range A) Pre- and Peroperative OAT started two weeks before surgery. NOT HIP SURGERY: 1.5 - 2.5 HIP SURGERY: 2 - 3 B) Primary and secondary prevention of venous THROMBOSIS: 2 - 3 C) Active venous thrombosis, pulmonary embolism and prevention of recurrent venous thrombosis: 2 - 3 D) Prevention of arterial thromboembolism including patients with mechanical heart valves: 3 - 4.5 Performed By: #### C SFCCDIFF, CSF TP, CSF TP #2, CSFCCDIFF #2, CSF PCR PANEL, GS, AERC, CSF GLU, CSF GLU #2 #### [address] PT Coag (PPP) [Time] 13.8 s High 9.0-12.9 [facility] Comment on above: Performed By: #### C SFCCDIFF, CSF TP, CSF TP #2, CSFCCDIFF #2, CSF PCR PANEL, GS, AERC, CSF GLU, CSF GLU #2 #### [address] Thyroid Stimulating Hormoneo n 06-03-2022 TSH Qn 0.85 m[IU]/L Normal 0.45-5.33 [facility] Comment on above: Result Comment: PERF ORMED BY: [place] [address] PATHOLOGIST PIGMENT PRESSER SUMEET GONZALEZ M.D. Performed By: #### C SFCCDIFF, CSF TP, CSF TP #2, CSFCCDIFF #2, CSF PCR PANEL, GS, AERC, CSF GLU, CSF GLU #2 #### [address] Thyroxine (T4) Totalon 06-03 T4 [Mass/Vol] 9.70 ug/dL Normal 5.39-11.82 [facility] Comment on above: Performed By: #### C SFCCDIFF, CSF TP, CSF TP #2, CSFCCDIFF #2, CSF PCR PANEL, GS, AERC, CSF GLU, CSF GLU #2 #### [address] Vit. B12/Folate Profileon Cobalamin (Vitamin B12) [Mass/Vol] 368 pg/mL Normal 180-914 [facility] Comment on above: Performed By: #### C SFCCDIFF, CSF TP, CSF TP #2, CSFCCDIFF #2, CSF PCR PANEL, GS, AERC, CSF GLU, CSF GLU #2 #### [address] Folate 16.6 ng/mL Normal >5.9 [facility] Comment on above: Result Comment: Jessy te reference range: >5.9 ng/ml The WHO technical consultation on folate and vitamin b12 deficiencies has determined that folate concentrations less than 4 ng/ml are considered deficient. Performed By: #### C SFCCDIFF, CSF TP, CSF TP #2, CSFCCDIFF #2, CSF PCR PANEL, GS, AERC, CSF GLU, CSF GLU #2 #### [address] Albumin [Mass/volume] in Ser um or PlasmaOrdered By: Ravi Zhang on 06-02-2022 Albumin [Mass/Vol] 3.5 g/dL 3.2-5.5 [facility] C reactive protein [Mass/vol ume] in Serum or PlasmaOrdered By: Ravi Zhang on 06-02-2022 CRP [Mass/Vol] 0.6 mg/dL 0.0-1.0 [facility] Direct bilirubin measurement Ordered By: Ravi Zhang on 06-02-2022 Bilirubin.direct [Mass/Vol] 0.2 mg/dL 0.0-0.4 [facility] Erythrocyte sedimentation ra te by Photometric methodOrdered By: Ravi Zhang on 06-02-2022 ESR Photometric method (Bld) [Velocity] 26 mm/hr 0-19 [facility] Folate [Mass/volume] in Seru m or PlasmaOrdered By: Ravi Zhang on 06-02-2022 Folate [Mass/Vol] 16.6 ng/mL >5.9 [facility] Comment on above: Folate reference ran ge: >5.9 ng/mlThe WHO technical consultation on folate and vitamin [id number] has determined that folate concentrations lessthan 4 ng/ml are considered deficient. Globulin Calc (S) [Mass/Vol] Ordered By: Ravi Zhang on 06-02-2022 Globulin (S) [Mass/Vol] 3.7 g/dL [facility] Glucose mean value [Mass/vol ume] in Blood Estimated from glycated hemoglobinOrdered By: Ravi Zhang on 06-02-2022 Average glucose Estimated from glycated hemoglobin (Bld) [Mass/Vol] 103 mg/dL [facility] Hemoglobin A1c percentageOrd ered By: Ravi Zhang on 06-02-2022 HbA1c (Bld) [Mass fraction] 5.2 % 4.3-5.6 [facility] Comment on above: Increased risk for d iabetes: 5.7 - 6.4diabetes: >6.4glycemic control for adults with diabetes: <7.0 Laboratory - Chemistry and C hemistry - challengeOrdered By: Ravi Zhang on 06-02-2022 Cobalamin (Vitamin B12) [Mass/Vol] 368 pg/mL 180-914 [facility] Magnesium [Mass/Vol] 2.1 mg/dL 1.6-2.6 [facility] Phosphate [Mass/volume] in S [place] or PlasmaOrdered By: Ravi Zhang on 06-02-2022 Phosphate [Mass/Vol] 3.8 mg/dL 2.5-4.6 [facility] Protein [Mass/volume] in Ser um or PlasmaOrdered By: Ravi Zhang on 06-02-2022 Protein [Mass/Vol] 7.2 g/dL 6.1-7.9 [facility] Serum or plasma alanine hooper otransferase measurement without P-5'-P (enzymatic activiOrdered By: Ravi Zhang on 06-02-2022 ALT No additional P-5'-P [Catalytic activity/Vol] 26 U/L 10-60 [facility] Serum or plasma albumin/glob ulin mass ratioOrdered By: Ravi Zhang on 06-02-2022 Albumin/Globulin [Mass ratio] 0.9 {ratio} [facility] Serum or plasma alkaline keven sphatase measurement (enzymatic activity/volume)Ordered By: Ravi Zhang on 06-02-2022 ALP [Catalytic activity/Vol] 60 U/L 32-92 [facility] Serum or plasma aspartate am inotransferase measurement (enzymatic activity/volume)Ordered By: Ravi Zhang on 06-02-2022 AST [Catalytic activity/Vol] 31 U/L 10-42 [facility] Serum or plasma non-glucuron idated bilirubin measurement (mass/volume)Ordered By: Ravi Zhang on 06-02-2022 Bilirubin.indirect [Mass/Vol] 0.7 mg/dL [facility] Serum or plasma thyroxine (T 4) measurement (mass/volume)Ordered By: Ravi Zhang on 06-02-2022 T4 [Mass/Vol] 9.70 ug/dL 5.39-11.82 [facility] Serum or plasma total biliru bin measurement (mass/volume)Ordered By: Ravi Zhang on 06-02-2022 Bilirubin [Mass/Vol] 0.9 mg/dL 0.3-1.2 [facility] TSH DL <= 0.005 mIU/L QnOrde red By: Ravi Zhang on 06-02-2022 TSH Qn 0.85 m[IU]/L 0.45-5.33 [facility] Thyroxine (T4) free [Mass/vo lume] in Serum or PlasmaOrdered By: Ravi Zhang on 06-02-2022 Free T4 [Mass/Vol] 0.96 ng/dL 0.61-1.12 [facility] MICRO OTHER TESTSOrdered By: Sree Reeves on 11-24-2021 Rapid COV Int NEG Ctl Pass (11/24/21 10:53 AM) Normal [facility] Man UA SS Rapid COV Int POS Ctl Pass (11/24/21 10:53 AM) Normal [facility] Man UA SS SARS-CoV-2 (COVID-19) RNA TERESA+probe Ql (Unsp spec) Not Detected (11/24/21 10:53 AM) Normal Not Detected [facility] Man UA SS Vital Signs Date Time Vital Sign Value Performing Clinician Facility 04-08-2024 18:25-0500 Body mass index (BMI) [Ratio] 26.54 kg/m2 Samra Destrehan DO Work Phone: [facility] 04-08-2024 18:25-0500 Body temperature 98.2 [degF] Samra Destrehan DO Work Phone: [facility] 04-08-2024 18:25-0500 Body weight 83.92 kg Samra Destrehan DO Work Phone: [facility] 04-08-2024 18:25-0500 Diastolic blood pressure 78 mm[Hg] Samra Destrehan DO Work Phone: [facility] 04-08-2024 18:25-0500 Heart rate 103 /min Samra Destrehan DO Work Phone: [facility] 04-08-2024 18:25-0500 SaO2% (BldA) [Mass fraction] 98 % Samra Destrehan DO Work Phone: [facility] 04-08-2024 18:25-0500 Systolic blood pressure 118 mm[Hg] Samra Irvin DO Work Phone: [facility] 02-11-2024 10:00-0400 Body height 177.8 cm [facility] Work Phone: [facility] 02-11-2024 10:00-0400 Body mass index (BMI) [Ratio] 26.4 kg/m2 [facility] Work Phone: [facility] 02-11-2024 10:00-0400 Body weight 83.46 kg [facility] Work Phone: [facility] 10-28-2023 11:24-0400 Body temperature 98.42 [degF] Rupert Soriano [facility] 10-28-2023 11:24-0400 Diastolic blood pressure 73 mm[Hg] Rupert oSriano [facility] 10-28-2023 11:24-0400 Heart rate 95 /min Rupert Soriano [facility] 10-28-2023 11:24-0400 Respiratory rate 16 /min Rupert Soriano [facility] 10-28-2023 11:24-0400 SaO2% (BldA) [Mass fraction] 100 % Rupert Soriano [facility] 10-28-2023 11:24-0400 Systolic blood pressure 131 mm[Hg] Rupert Soriano [facility] 03-02-2023 11:25-0400 Body height 176.53 cm Racheal Greenberg Other [facility] Other 03-02-2023 11:25-0400 Body mass index (BMI) [Ratio] 28.31 kg/m2 Racheal Greenberg Other [facility] Other 03-02-2023 11:25-0400 Body temperature 98.2 [degF] Racheal Greenberg Other [facility] Other 03-02-2023 11:25-0400 Body weight 88.23 kg Racheal Greenberg Other [facility] Other 03-02-2023 11:25-0400 Respiratory rate 18 /min Racheal Greenberg Other [facility] Other 03-02-2023 11:25-0400 SaO2% (BldA) [Mass fraction] 99 % Racheal Greenberg Other [facility] Other 01-07-2023 11:18-0400 Body height 182.88 cm [employer] Morro EasterFoxyP2 Work Phone: [facility] 01-07-2023 11:18-0400 Body temperature 98.7 [degF] [employer] Morro Easterwood Work Phone: [facility] 01-07-2023 11:18-0400 Body weight 87.85 kg [employer] Morro Easterwood Work Phone: [facility] 01-07-2023 11:18-0400 Diastolic blood pressure 93 mm[Hg] [employer] Morro Easterwood Work Phone: [facility] 01-07-2023 11:18-0400 Heart rate 102 /min [employer] Morro Easterwood Work Phone: [facility] 01-07-2023 11:18-0400 Respiratory rate 20 /min [employer] Morro Easterwood Work Phone: [facility] 01-07-2023 11:18-0400 SaO2% (BldA) [Mass fraction] 99 % [employer] Morro Easterwood Work Phone: [facility] 01-07-2023 11:18-0400 Systolic blood pressure 146 mm[Hg] [employer] Morro Beyererwood Work Phone: [facility] 06-15-2022 08:13-0500 Blood Pressure Location Iman Lue [facility] 06-15-2022 08:13-0500 Diastolic blood pressure 88 mm[Hg] Iman Lue [facility] 06-15-2022 08:13-0500 Heart rate 93 /min Iman Lue [facility] 06-15-2022 08:13-0500 Systolic blood pressure 125 mm[Hg] Iman Lue [facility] 06-15-2022 08:13-0500 weight 1.73 Iman Lue [facility] Comment on above: Result Comment: ^~:!ZScore Source -[facility] 06-15-2022 08:13-0500 Weight Percentile 95.83 % Iman Lue [facility] Comment on above: Result Comment: ^~:!Percentile Source -[facility] 06-14-2022 14:00-0500 Body height 176.53 cm Morro KingdeegarryFoxyP2 Other [employer] [facility] [employer] Other 06-14-2022 14:00-0500 Body mass index (BMI) [Ratio] 26.49 kg/m2 [employer] Other [facility] Other 06-14-2022 14:00-0500 Body temperature 98.4 [degF] [employer] Other [facility] Other 06-14-2022 14:00-0500 Body weight 82.56 kg Morro Hauser Other [facility] Other 06-14-2022 14:00-0500 Diastolic blood pressure 82 mm[Hg] Morro Hauser Other [facility] Other 06-14-2022 14:00-0500 Respiratory rate 20 /min Morro Hauser Other [facility] Other 06-14-2022 14:00-0500 SaO2% (BldA) [Mass fraction] 98 % Morro Hauser Other [facility] Other 06-14-2022 14:00-0500 Systolic blood pressure 120 mm[Hg] Morro OlmosFoxyP2 Other [facility] Other 06-09-2022 17:36-0500 Body temperature 97.8 [degF] DO Ravi Lindbloom Work Phone: [facility] 06-09-2022 17:36-0500 Diastolic blood pressure 65 mm[Hg] DO Ravi Lindbloom Work Phone: [facility] 06-09-2022 17:36-0500 Heart rate 78 /min DO Ravi Lindbloom Work Phone: [facility] 06-09-2022 17:36-0500 Respiratory rate 18 /min DO Ravi Lindbloom Work Phone: [facility] 06-09-2022 17:36-0500 SaO2% (BldA) [Mass fraction] 96 % DO Ravi Lindbloom Work Phone: [facility] 06-09-2022 17:36-0500 Systolic blood pressure 129 mm[Hg] DO Ravi Lindbloom Work Phone: [facility] 06-09-2022 03:16-0500 Body weight 83.2 kg DO Ravi Zhang Work Phone: [facility] 06-06-2022 13:58-0500 Body height 187.96 cm DO Ravi Zhang Work Phone: [facility] 05-24-2022 15:07-0500 Blood Pressure Location Loreto DONALDSON [facility] 05-24-2022 15:07-0500 Body temperature 98.06 [degF] Loreto LOMAXLEY [facility] 05-24-2022 15:07-0500 bodymassindex 0.85 Loreto DONALDSON [facility] Comment on above: Result Comment: ^~:!ZScore [facility] 05-24-2022 15:07-0500 Diastolic blood pressure 70 mm[Hg] Loreto DONALDSON [facility] 05-24-2022 15:07-0500 Heart rate 72 /min Loreto DONALDSON [facility] 05-24-2022 15:07-0500 Height/Length Percentile 99.82 Loreto DONALDSON [facility] Comment on above: Result Comment: ^~:!Percentile Source -[facility] 05-24-2022 15:07-0500 Height/Length Z-Score 2.91 Loreto DONALDSON [facility] Comment on above: Result Comment: ^~:!ZScore Source [facility] 05-24-2022 15:07-0500 SaO2% (BldA) [Mass fraction] 99 % Loreto DONALDSON [facility] 05-24-2022 15:07-0500 Systolic blood pressure 110 mm[Hg] Loreto DONALDSON [facility] 05-24-2022 15:07-0500 weight 1.68 Loreto DONALDSON [facility] Comment on above: Result Comment: ^~:!ZScore Source -[facility] 05-24-2022 15:07-0500 Weight Percentile 95.39 % Loreto DONALDSON [facility] Comment on above: Result Comment: ^~:!Percentile Source -[facility] 01-05-2022 09:00-0400 Body height 176.53 cm [employer]ro [employer] Other [facility] Other 01-05-2022 09:00-0400 Body mass index (BMI) [Ratio] 26.34 kg/m2 [employer] Other [facility] Other 01-05-2022 09:00-0400 Body temperature 98 [degF] Morro KingdeeerFoxyP2 Other [facility] Other 01-05-2022 09:00-0400 Body weight 82.1 kg Morro KingdeeerFoxyP2 Other [facility] Other 01-05-2022 09:00-0400 Diastolic blood pressure 78 mm[Hg] Morro Easterwood Other [facility] Other 01-05-2022 09:00-0400 Respiratory rate 20 /min Morro KingdeeerFoxyP2 Other [facility] Other 01-05-2022 09:00-0400 SaO2% (BldA) [Mass fraction] 99 % Morro Kingdeeerwood Other [facility] Other 01-05-2022 09:00-0400 Systolic blood pressure 120 mm[Hg] Morro Easterwood Other [facility] Other 11-22-2021 11:30-0400 Body height 176.53 cm Morro Easterwood Other [facility] Other 11-22-2021 11:30-0400 Body mass index (BMI) [Ratio] 25.62 kg/m2 Morro Easterwood Other [facility] Other 11-22-2021 11:30-0400 Body temperature 98.1 [degF] Morro Easterwood Other [facility] Other 11-22-2021 11:30-0400 Body weight 79.83 kg Morro Easterwood Other [facility] Other 11-22-2021 11:30-0400 Diastolic blood pressure 80 mm[Hg] Morro Easterwood Other [facility] Other 11-22-2021 11:30-0400 Respiratory rate 20 /min Morro Easterwood Other [facility] Other 11-22-2021 11:30-0400 SaO2% (BldA) [Mass fraction] 99 % Morro Easterwood Other [facility] Other 11-22-2021 11:30-0400 Systolic blood pressure 120 mm[Hg] Morro Easterwood Other [facility] Other 09-13-2021 15:00-0400 Body height 176.53 cm Morro Hauser Other [facility] Other 09-13-2021 15:00-0400 Body mass index (BMI) [Ratio] 25.76 kg/m2 Morro Hauser Other [facility] Other 09-13-2021 15:00-0400 Body temperature 98.4 [degF] Morro Hauser Other [facility] Other 09-13-2021 15:00-0400 Body weight 80.29 kg Morro Hauser Other [facility] Other 09-13-2021 15:00-0400 Diastolic blood pressure 70 mm[Hg] Morro Hauser Other [facility] Other 09-13-2021 15:00-0400 Respiratory rate 20 /min Morro Hauser Other [facility] Other 09-13-2021 15:00-0400 SaO2% (BldA) [Mass fraction] 98 % Morro Hauser Other [facility] Other 09-13-2021 15:00-0400 Systolic blood pressure 108 mm[Hg] Morro Hauser Other [facility] Other Encounters Encounter Date Encounter Type Care Provider Facility Start: 04-15-2024 End: 04-15-2024 Office outpatient visit 15 minutes Benji Leung DO Work Phone: [facility] Comment on above: Encounter for survei llance of other contraceptive Start: 04-08-2024 End: 04-08-2024 ambulatory SAMRA IRVIN Not Available Start: 04-08-2024 End: 04-08-2024 Office outpatient visit 15 minutes Samra Rodriguez Destrehan DO Work Phone: [facility] Comment on above: Dysuria (Primary Dx) ; Acute cystitis without hematuria Start: 02-11-2024 End: 02-11-2024 Bamboo flowsheet Sampson Ayala PA Work Phone: [facility] Start: 02-11-2024 End: 02-11-2024 Bamboo flowsheet Sampson Ayala PA Work Phone: [facility] Start: 02-11-2024 End: 02-11-2024 Patient encounter procedure Sampson Ayala PA Work Phone: [facility] Comment on above: Status post arthrosc opy of right knee (Primary Dx) Start: 02-11-2024 End: 02-11-2024 ambulatory SAMPSON AYALA Not Available Start: 12-06-2023 End: 12-06-2023 ambulatory RAYNE Cj MIGUEL Not Available Start: 11-28-2023 End: 11-28-2023 Patient encounter procedure Sampson Ayala [facility] Start: 11-12-2023 End: 11-12-2023 ambulatory SAMPSON AYALA Not Available Start: 10-28-2023 End: 10-28-2023 Emergency department patient visit Rupert Soriano [facility] Start: 03-02-2023 End: 03-02-2023 ambulatory Racheal Greenberg Other [place] [employer] Other Start: 03-02-2023 Office outpatient vi sit 15 minutes Racheal Greenberg [facility] Start: 01-07-2023 End: 01-07-2023 Emergency department patient visit Morro Hauser Facility:[facility] Start: 01-07-2023 End: 01-07-2023 Emergency department patient visit [employer] Morro Hauser Work Phone: [facility] Work Phone: Start: 11-15-2022 End: 11-25-2022 Pre-admission assessment Carlin Fuentes [facility] Start: 08-16-2022 End: 08-16-2022 ambulatory Morro Hauser Other [facility] Other Start: 08-16-2022 [facility] encounter [facility] Start: 07-03-2022 End: 07-04-[address] JOSÉ MIGUEL LAM Facility: Start: 06-15-2022 End: 06-15-2022 Patient encounter procedure Iman Gomez [facility] Start: 06-14-2022 End: 06-14-2022 ambulatory Morro Hauser Other [facility] Other Start: 06-14-2022 Office outpatient vi [facility] Start: 06-09-2022 End: 06-09-2022 ambulatory Morro Hauser Other [place] [employer] Other Start: 06-09-2022 Telephone encounter Morro [facility] Start: 06-02-2022 End: 06-09-2022 Evaluation and management of inpatient Kt Pearson Facility:[facility] Start: 06-02-2022 End: 06-09-2022 Evaluation and management of inpatient DO Ravi Zhang Work Phone: [facility] Work Phone: Start: 05-24-2022 End: 05-24-2022 Patient encounter procedure Loreto DONALDSON [facility] Start: 01-05-2022 End: 01-05-2022 ambulatory Morro Easterwood Other [facility] Other Start: 01-05-2022 Office outpatient vi sit 15 minutes Morro Easterwood [facility] Start: 11-24-2021 End: 11-24-2021 ambulatory Morro Easterwood Other [facility] Other Start: 11-24-2021 Telephone encounter Morro Pepitoerwood [facility] Start: 11-24-2021 End: 02-22-2022 Recurring MORRO EASTERWOOD [facility] Start: 11-22-2021 End: 11-22-2021 ambulatory Morro Easterwood Other [facility] Other Start: 11-22-2021 Office outpatient vi sit 15 minutes Morro Easterwood [facility] Start: 09-13-2021 End: 09-13-2021 ambulatory Morro Easterwood Other [facility] Other Start: 09-13-2021 Office outpatient vi sit 15 minutes Morro Easterwood [facility] Procedures Date Procedure Procedure Detail Performing Clinician Start: 04-08-2024 Urnls dip stick/tabl et rgnt auto w/o microscopy Bryson Leslie DO Work Phone: Start: 01-07-2023 X-ray of left ankle APR N Morro Pepitoerwood Work Phone: Start: 06-06-2022 MRI of cervical spin e with contrast DO Ravi Zhang Work Phone: Start: 06-05-2022 Aerobic microbial culture DO Ravi Zhang Work Phone: Start: 06-05-2022 Anaerobic microbial culture DO Ravi Zhang Work Phone: Start: 06-05-2022 Investigation of transfusion reaction DO Ravi Zhang Work Phone: Start: 06-05-2022 MRI of head DO Angy Zhang Work Phone: Start: 06-04-2022 Mycology culture DO Beryl Zhang Work Phone: Start: 06-04-2022 Trichomonas vaginali s detection DO Ravi Zhang Work Phone: Start: 06-04-2022 Computed tomography of abdomen and pelvis with contrast DO Ravi Zhang Work Phone: Start: 06-03-2022 MRI of thoracic spin e with contrast DO Ravi Zhang Work Phone: Plan of Treatment Date Care Activity Detail Author Start: 04-15-2024 End: 04-15-2024 Patient encounter procedure 04/15/2024 10:20 AM EST Office Visit [facility] [address] [place] [id number] Benji Leung DO [address] [place] [address] [facility] Start: 02-11-2024 End: 02-11-2024 Patient encounter procedure 02/11/2024 10:00 AM EDT Office Visit [facility] [address] [place] [id number] Sampson Ayala PA [address] [place] [address] Arrived [facility] Comment on above: Arrived Start: 06-09-2022 [facility] Start: 06-06-2022 Referral to infectio us diseases physician [facility] Start: 06-05-2022 Borrelia burgdorferi DNA assay [facility] Start: 06-05-2022 End: 06-05-2022 [facility] Start: 06-05-2022 [facility] Start: 06-04-2022 Referral to chief legal officer [facility] Start: 06-04-2022 Referral to urologist Zehra [facility] Start: 06-02-2022 Hospital admission [facility] Start: 06-02-2022 Referral to neurologist [facility] IgG [Mass/volume] in Serum or Plasma [facility] Patient Education [facility] Work Phone: Patient referral [facility] Work Phone: Protein fractions.oligoclonal bands.intrathecal [Presence] in Serum and CSF [facility] URINARY TRACT INFECT ION (HTRX) URINARY TRACT INFECTION (HTRX) Lab Routine Dysuria Ordered: 04/08/2024 [facility] Work Phone: Comment on above: Ordered: 04/08/2024 Payers Date Payer Category Payer Medicaid [id number] 2022 Medicaid [id number] 2022 Self-pay [id number] 2022 Unknown [id number] [id number] 2003 Unknown [id number] 2.16.84 [id number] 2003 Unknown [id number] 2.16.8 [id number] 2003 Unknown [id number] 2.16.84 [id number] 2003 Unknown [id number] 2.16.84 [id number] 2003 Unknown [id number] 2.16.84 [id number] 2003 Unknown [id number] 2.16.84 [id number] 2003 Unknown [id number] 2.16.84 [id number] Unknown [id number] 2.16.8 [id number] Unknown [id number] 2.16.8 [id number] Social History Date Type Detail Facility Start: 12-06-2023 End: 02-11-2024 Sex Assigned At [facility] Start: 07-01-2020 End: 12-22-2022 Tobacco smoking status Never smoked tobacco (finding) [facility] Tobacco smoking status Never [facility] Start: 2003 Sex Assigned At Female [facility] Start: 12-22-2022 Tobacco use and exposure Smokeless tobacco non-user [facility] Start: 02-11-2024 End: 04-08-2024 Alcoholic beverage intake Lifetime non-drinker (finding) [facility] Start: 12-06-2023 End: 02-11-2024 History of Social function [facility] Start: 12-22-2022 Alcohol Comment Caffeine: 1-2 cups/day tea, chocolate [facility] Start: 12-24-2022 Gender identity Identifies as female gender (finding) [facility] Start: 12-24-2022 Sexual orientation Heterosexual (finding) [facility] Functional Status Date Assessment Result Facility 10-28-2023 Functional Status N/A [facility] 06-15-2022 Functional Status N/A [facility] 06-09-2022 Functional status Patient at [facility] Work Phone: 05-24-2022 Functional Status N/A [facility] Mental Status Date Assessment Result Facility 06-09-2022 Cognitive function Cognitive Sta tus Patient at [facility] Work Phone: Clinical Notes 09-13-2021 to 04-15-2024 Su Emery, MANUFACTURING ENGINEER SUPERVISOR - 04/15/2024 10:20 AM Asif Irvin DO - 04/08/2024 6:25 PM DANNI Osborn - 02/11/2024 10:00 AM EDTPatient Instructions Note Date & Type Note Facility 04-15-2024 History of Presen t illness Narrative Reason for Appointment: Patient ID: Heena Wang is a 18 y.o. female who presents for No chief complaint on file. Patient presents today for Consult appointment. MEDICATIONS Current Outpatient Medications Medication Instructions azaTHIOprine (Imuran) 100 MG tablet TAKE 1/2 (ONE-HALF) OF A TABLET BY MOUTH EVERY MORNING, and ONE TABLET AT BEDTIME, titrate up DIRECTED Diagnosis Unavailable drospirenone-ethinyl estradiol (Di, Ocella) 3-0.03 MG tablet 1 tablet, Oral, Daily escitalopram (Lexapro) 20 MG tablet Every 24 hours valACYclovir (VALTREX) 500 mg, Oral, Daily ALLERGIES No Known Allergies PROBLEMS Active Ambulatory Problems Diagnosis Date Noted HSV (herpes simplex virus) infection 12/22/2022 Resolved Ambulatory Problems Diagnosis Date Noted No Resolved Ambulatory Problems Past Medical History: Diagnosis Date Trigger finger HISTORY PAST MEDICAL HISTORY SOCIAL HISTORY Past Medical History: Diagnosis Date Trigger finger Social History Tobacco Use Smoking status: Never Smokeless tobacco: Never Vaping Use Vaping status: Never Used Substance Use Topics Alcohol use: Never Comment: Caffeine: 1-2 cups/day tea, chocolate Drug use: Never FAMILY HISTORY Family History Problem Relation Name Age of Onset Arthritis Mother Keely Wang Dislocations Mother Keely Wang Rheumatologic disease Mother Keely Wang Hypertension Father Diabetes Brother Hypertension Maternal Grandmother Aure Starr Cancer Maternal Grandmother Arue Starr Cancer Maternal Grandfather Stepan Wang Cancer Paternal Grandmother Izzy Gutiérrez SURGICAL HISTORY Past Surgical History: Procedure Laterality Date INNER EAR SURGERY 2005 tubes in ears KNEE CARTILAGE SURGERY Right 02/01/2024 Arthroscopy w/ MTP @ [facility] OTHER SURGICAL HISTORY 2005 adnoidectomy REVIEW OF SYSTEMS Review of Systems: Review of Systems Constitutional: Negative. HENT: Negative. Eyes: Negative. Respiratory: Negative. Cardiovascular: Negative. Gastrointestinal: Negative. Genitourinary: Negative. Musculoskeletal: Negative. Skin: Negative. Neurological: Negative. All other systems reviewed and are negative. Hematological: Negative. Endocrine: Negative. Allergic/Immunologic: Negative. OBJECTIVE Objective: Physical Exam Constitutional: Appearance: Normal appearance. She is well-developed. Cardiovascular: Rate and Rhythm: Normal rate and regular rhythm. Pulmonary: Effort: Pulmonary effort is normal. Breath sounds: Normal breath sounds. Abdominal: General: Bowel sounds are normal. There is no distension. Palpations: Abdomen is soft. Tenderness: There is no abdominal tenderness. There is no guarding or rebound. Musculoskeletal: General: No swelling. Normal range of motion. Right lower leg: No edema. Left lower leg: No edema. Neurological: Mental Status: She is alert and oriented to person, place, and time. Skin: General: Skin is warm and dry. Psychiatric: Mood and Affect: Mood normal. Behavior: Behavior normal. Vitals and nursing note reviewed. Exam conducted with a abstract clerk present. Vitals: Estimated body mass index is 26.54 kg/m as calculated from the following: Height as of 02/11/24: 5' 10 . Weight as of 04/08/24: 185 lb. BP: No LMP recorded. ASSESSMENT & PLAN ICD-10-CM 1. Encounter for surveillance of other contraceptive Z30.49 Pt presents for refills on control. Rx for junel faxed to pharmacy. Pt to return for annual unless needed sooner. Documented by Su Emery LPN on behalf of: Benji Leung DO documented in this encounter [facility] 04-08-2024 History of Presen t illness Narrative Images from the original note were not included. [address] , [address] [facility] [place], [address] P: [phone] F: [phone] HPI Historian of [facility]: patient Heena Wang is a 18 y.o. female who presents today to the Urgent Care with the following complaints and denials which have been present for 6 day(s) pt admits to vaginal odor as well. Pt denies any vomiting, nausea, body aches, fevers, or chills. Pt is not worried for any STI at this time. C/O Denies Symptom Comments [x] [] Dysuria Pressure and burning sensation [] [x] hematuria [x] [] Urinary frequency [] [x] Urinary incontinence [x] [] Urinary urgency [] [x] Genital itching [x] [] Genital discharge White and yellow color discharge [] [x] Back pain [x] [] Abd pain Mid abd cramping Additional Comments: pt has not taken any OTC medications IH Testing: An In-House UA has been obtained ROS A complete system ROS was performed and negative aside from the pertinent positives noted in the HPI and PE. PHYSICAL EXAM Physical Exam Constitutional: General: She is not in acute distress. Appearance: She is not ill-appearing or toxic-appearing. HENT: Head: Normocephalic. Eyes: Conjunctiva/sclera: Conjunctivae normal. Pulmonary: Effort: Pulmonary effort is normal. No respiratory distress. Breath sounds: No stridor. Abdominal: General: Abdomen is flat. Tenderness: There is no abdominal tenderness. Musculoskeletal: General: No swelling or signs of injury. Normal range of motion. Cervical back: Normal range of motion. Skin: General: Skin is warm and dry. Neurological: General: No focal deficit present. Mental Status: She is alert. Mental status is at baseline. Psychiatric: Mood and Affect: Mood normal. Behavior: Behavior normal. Thought Content: Thought content normal. Judgment: Judgment normal. TREATMENT PLAN 1. Dysuria (Primary) - URINALYSIS ANALYZER TEST - URINARY TRACT INFECTION (HTRX) 2. Acute cystitis without hematuria Discussed diagnosis and treatment plan extensively including any medications prescribed (OTC and Rx), call with culture result. RTC prn, discussed appropriate follow up care. - nitrofurantoin, macrocrystal-monohydrate, (Macrobid) 100 MG capsule; Take 1 capsule (100 mg) by mouth in the morning and 1 capsule (100 mg) before bedtime. Do all this for 7 days. Dispense: 14 capsule; Refill: 0 documented in this encounter [facility] 02-11-2024 History of Presen t illness Narrative Images from the original note were not included. Subjective Patient ID: Heena Wang is a 18 y.o. female. Chief Complaint: Post-op of the Right Knee (Rt knee scope MTP TSCNCO 02/01/24) Last Surgery: No surgery found Last Surgery Date: No surgery found HPI She is very happy she states that her pain that she was having is gone she has here to review her images that demonstrate the medial meniscus in the loose portion associated with meniscal tear. As well as some chondral injury which is minimal and addressed by Dr. Rivera. She is doing well enough she does not care to go to organized physical therapy and she states that she is back doing whatever she wants in his very happy she wants to follow up on as-needed basis for this problem she is no longer taking any kind pain medication. Objective Ortho Exam Physical exam patient's incisional portals healed up very nicely there is no erythema or drainage noted. She does still have a little bit of an effusion but overall has no medial joint pain or pain with ambulating. She lacks only a few degrees of extension and flexion associated with the postoperative swelling. Her calf is supple she has no erythema of the lower extremity. Image Results: MRI KNEE W/O CONTRAST RIGHT Exam Date/Time: 11/28/2023 07:44 EDT Reason for Exam: S83.104A M25.461 Report IMPRESSION: HORIZONTAL TEAR OF THE BODY THROUGH POSTERIOR HORN OF THE MEDIAL MENISCUS. EDEMA WITHIN POPLITEUS MUSCLE LIKELY REPRESENTS MILD MUSCLE STRAIN. Exam: MRI Knee w/o Contrast Right History: Knee pain since a pop 2 months ago Technique: Multiplanar multisequence MRI of the knee was performed without contrast. Comparison: Radiographs 10/28/2023 Findings: Quadriceps and patellar tendons are intact. Moderate joint effusion. Anterior and posterior cruciate ligaments are intact. The medial collateral ligament, lateral collateral ligament, and popliteus are intact. Edema is present within popliteus muscle. Horizontal tear of the body through posterior horn of the medial meniscus. The lateral meniscus is intact. No well-defined or measurable cartilage defect identified. Popliteal fossa structures are intact. Sawyer's cyst measures approximately 2 cm in AP dimension by 1.5 cm in transverse dimension by 6 cm in craniocaudal dimension. Ordering Provider: Sampson Ayala FINAL REPORT Dictated: 11/29/2023 10:12 am Matty Garcia DO Signed (Electronic Signature): 11/29/2023 10:12 am Signed by: Matty Garcia DO Transcribed by: NORMA Technologist: FIDEL Technical Comments None Assessment/Plan Encounter Diagnoses: Status post arthroscopy of right knee No orders of the defined types were placed in this encounter. Follow up if symptoms worsen or fail to improve. Continue to do home exercise program and if necessary use a compressive wrap to help reduce the swelling in the knee. As you are progressing very well we would expect this to continue on a week to week basis. Call the office if you start to resort to increased swelling or would want to consider doing organized physical therapy. Cold pack 20 minutes several times a day will be helpful and working on quad strengthening is very important. No real limitations otherwise. Would plan on following up as needed at your request as you doing extremely well. Continue anti-inflammatory and/or Tylenol use for discomfort. documented in this encounter [facility] 02-11-2024 Instructions DANNI Judd - 02/11/2024 10:00 AM EDT Continue to do home exercise program and if necessary use a compressive wrap to help reduce the swelling in the knee. As you are progressing very well we would expect this to continue on a week to week basis. Call the office if you start to resort to increased swelling or would want to consider doing organized physical therapy. Cold pack 20 minutes several times a day will be helpful and working on quad strengthening is very important. No real limitations otherwise. Would plan on following up as needed at your request as you doing extremely well. Continue anti-inflammatory and/or Tylenol use for discomfort. documented in this encounter [facility] 10-28-2023 Hospital Discharg e instructions Patient Education 10/28/2023 12:35:22 Knee Sprain, Adult Knee Sprain, Adult A knee sprain is a stretch or tear in a knee ligament. Knee ligaments are tissues that connect bones in the knee to each other. What are the causes? This condition often results from: A fall. An injury to the knee. What are the signs or symptoms? Symptoms of this condition include: Trouble straightening or bending the leg. Swelling in the knee. Bruising around the knee. Tenderness or pain in the knee. Muscle spasms around the knee. How is this diagnosed? This condition may be diagnosed based on: A physical exam. A history of what happened just before you started to have symptoms. Tests, including: ?An X-ray. This may be done to make sure no bones are broken. ?An MRI. This may be done to check if the ligament is torn. ?Stress testing of the knee. This may be done to check ligament damage. How is this treated? Treatment for this condition may involve: Keeping the knee still (immobilized) with a cast, brace, or splint. Applying ice to the knee. This helps with pain and swelling. Raising (elevating) the knee above the level of your heart when you are resting. This helps with pain and swelling. Taking medicine for pain. Doing exercises to prevent or limit permanent weakness or stiffness in your knee. Having surgery to reconnect the ligament to the bone or to reconstruct it. This may be needed if the ligament is completely torn. Follow these instructions at home: If you have a splint or brace: Wear it as told by your health care provider. Remove it only as told by your health care provider. Check the skin around it every day. Tell your health care provider about any concerns. Loosen it if your toes tingle, become numb, or turn cold and blue. Keep it clean and dry. If you have a cast: Do not stick anything inside it to scratch your skin. Doing that increases your risk of infection. Check the skin around it every day. Tell your health care provider about any concerns. You may put lotion on dry skin around the edges of the cast. Do not put lotion on the skin underneath the cast. Keep it clean and dry. Bathing If you have a splint, brace, or cast that is not waterproof: Do not let it get wet. Cover it with a watertight covering when you take a bath or a shower. Managing pain, stiffness, and swelling If directed, put ice on the injured area. To do this: ?If you have a removable splint or brace, remove it as told by your health care provider. ?Put ice in a plastic bag. ?Place a towel between your skin and the bag or between your cast and the bag. ?Leave the ice on for 20 minutes, 2 3 times a day. Move your toes often to reduce stiffness and swelling. Elevate the injured area above the level of your heart while you are sitting or lying down. General instructions Take myap-shx-bfikgcu and prescription medicines only as told by your health care provider. Do not use any products that contain nicotine or tobacco, such as cigarettes, e-cigarettes, and chewing tobacco. These can delay healing. If you need help quitting, ask your health care provider. Do exercises as told by your health care provider. Keep all follow-up visits as told by your health care provider. This is important. Contact a health care provider if: You have pain that gets worse. The cast, brace, or splint does not fit right. The cast, brace, or splint gets damaged. Get help right away if: You cannot use your injured knee to support any of your body weight (cannot bear weight). You cannot move the injured joint. You cannot walk more than a few steps without pain or without your knee buckling. You have significant pain, swelling, or numbness in the leg below the cast, brace, or splint. Your foot or toes are numb, cold, or blue after loosening your splint or brace. Summary A knee sprain is a stretch or tear in a knee ligament that usually occurs as the result of a fall or injury. Treatment may involve immobilizing the knee with a cast, splint, or brace and then doing exercises. If the ligament is completely torn, it may require surgery to repair or replace the injured ligament. This information is not intended to replace advice given to you by your health care provider. Make sure you discuss any questions you have with your health care provider. Document Revised: 08/14/2022 Document Reviewed: 03/26/2020 [employer] Patient Education 2022 [employer] 10/28/2023 12:35:22 How to Use a Knee Immobilizer How to Use a Knee Immobilizer A knee immobilizer is a device used to support and protect an injured or painful knee. You may also have to wear it after knee surgery. A knee immobilizer keeps your knee from moving or bending while it is healing. Wear the immobilizer as told by your health care provider. Remove it only as told by your health care provider. In general, your immobilizer should: Have straps, hooks, or tapes that fasten snugly around your leg. Not feel too tight or too loose. What are the risks? Generally, knee immobilizers are safe to wear. However, problems may occur, including: Skin irritation. This may lead to an infection, in rare cases. Making your condition worse. This could happen if you wear the immobilizer in the wrong way. How to use a knee immobilizer Different immobilizers will have different instructions for use. Your health care provider will show you or tell you: How to put on your immobilizer. How to adjust your immobilizer. When and how often to wear your immobilizer. How to remove your immobilizer. If you will need any assistive devices in addition to your immobilizer, such as crutches or a cane. Follow these instructions at home: Bathing If the immobilizer is not waterproof: ?Do not let it get wet. ?Cover it with a watertight covering when you take a bath or shower. If your health care provider says that you may remove the immobilizer: ?Take it off before bathing or showering. ?Check for any skin irritation. ?Use a towel to dry the area completely before you put the immobilizer back on. Managing pain, stiffness, and swelling Raise (elevate) the injured area above the level of your heart while you are sitting or lying down. Doing this reduces throbbing and swelling, and helps with healing. You can use pillows for support. Loosen the immobilizer if you notice symptoms or signs that it is too tight, such as: ?Swelling. ?Tingling in your toes. ?Numbness. ?Color change on your foot or ankle. ?More pain. Infection signs Check any irritations, incisions, or cuts on your skin under the immobilizer every day for signs of infection. Check for: More redness, swelling, or pain. Fluid or blood. Warmth. Pus or a bad smell. General instructions Keep the immobilizer clean and dry. Return to your normal activities as told by your health care provider. Ask your health care provider what activities are safe for you. Check the skin around the immobilizer every day. Tell your health care provider about any concerns. Follow your health care provider's instructions about whether you can put any weight on your injured leg. Use crutches or a cane as told. Keep all follow-up visits. This is important. Contact a health care provider if: Your knee immobilizer breaks or needs to be replaced. You have more pain or swelling in your knee, foot, or ankle. Your knee immobilizer is not helping. Your knee immobilizer makes your knee pain worse. You have any signs of infection of the skin under the immobilizer. Summary A knee immobilizer is used to support and protect an injured or painful knee. You may also have to wear it after knee surgery. A knee immobilizer keeps your knee from moving or bending while it is healing. Different immobilizers will have different instructions for use. Follow the instructions from your health care provider. Contact your health care provider if you have more swelling or pain, if your knee immobilizer breaks, if your knee immobilizer does not help your knee pain or makes pain worse, or if you have any signs of infection. This information is not intended to replace advice given to you by your health care provider. Make sure you discuss any questions you have with your health care provider. Document Revised: 02/10/2022 Document Reviewed: 02/10/2022 [employer] Patient Education 2022 [employer] 10/28/2023 12:35:22 Radial Nerve Palsy Radial Nerve Palsy Radial nerve palsy is the loss of function of the radial nerve in your arm or hand. The radial nerve extends from your shoulder, around the back of your upper arm, and down the outside of your lower arm. An injury to this nerve causes certain muscles and tendons in your arm and wrist not to work properly, which leads to a condition known as wrist drop. This means that you cannot extend your wrist. If you are standing with your arm stretched straight out in front of you, your wrist will bend and your hand will drop down toward the floor. An injury to the radial nerve may also result in lost feeling (sensation) in parts of your arm. What are the causes? Common causes of this condition include: A break (fracture) of your upper or lower arm bone. Complications from surgery. Improper use of crutches. Crutches that are too long can put pressure on the radial nerve where it passes through the armpit (crutch palsy). Keeping your arm in a position that places prolonged pressure on the radial nerve, such as by sleeping with arms over the back of a chair (Sunday night palsy). Performing repetitive activities that involve rotation of your lower arm or movement of your wrist (repetitive use injury). What increases the risk? You are more likely to develop this condition if you: Play contact sports. Have a condition in which your body's immune system attacks your joints (rheumatoid arthritis). Have diabetes. Have an underactive thyroid (hypothyroidism). What are the signs or symptoms? Symptoms of this condition include: Inability to extend your wrist. Difficulty straightening your elbow and wrist. Numbness or tingling in the back of your arm, forearm, or hand. Inability to pinch. Muscle of the injured arm looking smaller. How is this diagnosed? This condition is diagnosed with a history of the injury and a physical exam. To confirm the diagnosis, you may also have tests, including: Ultrasound. This test show if the nerve has an injury. Nerve conduction studies. These tests show if the radial nerve is sending electrical signals well. X-rays. These may be done if your health care provider suspects that you have an injury to the bones in your arm. MRI. This may be used to determine the cause of your radial nerve palsy or to rule out other causes of your symptoms. How is this treated? Treatment for this condition depends on the cause. It may involve: Medicines. ?NSAIDs may be used to control pain. ?A steroid injection may be used to decrease swelling around the nerve. Physical and occupational therapy. This may help you: ?Regain strength in your hand and wrist. ?Maintain range of motion of your wrist and elbow. Splinting. Your health care provider may make one or more splints for you to wear during the day or at night to help with motion and positioning of your wrist. Removing pressure on the radial nerve. This is done if the condition is caused by pressure on the nerve. Using this treatment may allow the nerve to go back to normal within a few weeks or a few months. Surgery. Depending on the cause of your radial nerve palsy, surgery may be needed to: ?Remove pressure on the nerve (entrapment). ?Repair broken bones. ?Relocate (transfer) tendons in your lower arm to help you regain strength and mobility of your wrist. ?Transfer a nerve to the injury site to restore nerve function. Follow these instructions at home: If you have a splint or brace Wear the splint or brace as told by your health care provider. Remove it only as told by your health care provider. Loosen the splint or brace if your fingers tingle, become numb, or turn cold and blue. Keep the splint or brace clean. If the splint or brace is not waterproof: ?Do not let it get wet. ?Cover it with a watertight covering when you take a bath or a shower. Managing pain, stiffness, and swelling If directed, put ice on the injured area: ?If you have a removable splint or brace, remove it as told by your health care provider. ?Put ice in a plastic bag. ?Place a towel between your skin and the bag. ?Leave the ice on for 20 minutes, 2 3 times a day. Move your fingers often to avoid stiffness and to lessen swelling. Raise (elevate) the injured area above the level of your heart while you are sitting or lying down. General instructions Follow your health care provider's instructions about how to protect your hand and wrist. Protect your hand from extreme temperature injuries, such as denny and frostbite. Exercise your hand, wrist, and arm on a regular basis, as directed by your health care provider or therapist. Keep all follow-up visits as told by your health care provider. This is important. Contact a health care provider if you: Have a sudden increase in pain. Develop new numbness or new loss of sensation in your hand. Get help right away if you: Have a sudden change in your ability to move your arm, wrist, or hand. Notice your fingers become bluish in color or feel cold to the touch. Summary Radial nerve palsy is the loss of function of the radial nerve in your arm or hand. That nerve extends from your shoulder, around the back of your upper arm, and down the outside of your lower arm. An injury to the radial nerve causes certain muscles and tendons in your arm and wrist not to work properly. This makes you unable to extend your wrist (a condition known as wrist drop). You may also lose feeling (sensation) in parts of your arm. Treatment for this condition depends on the cause. It may include removing pressure on the radial nerve, physical and occupational therapy, splinting, medicines, or surgery. This information is not intended to replace advice given to you by your health care provider. Make sure you discuss any questions you have with your health care provider. Document Revised: 06/29/2021 Document Reviewed: 06/29/2021 [employer] Patient Education 2022 [email or web address]. 10/28/2023 12:35:22 Crutch Use, Adult, [id number] Crutch Use, Adult Crutches are used to take weight off of one of your legs or feet when you stand or walk. You may need crutches to help you heal after an injury or procedure. It is important to use crutches that fit right. Your crutches fit right if: You can fit two or three fingers between your armpit and the crutch. You use your hands, not your armpits, to hold yourself up. It is important that a doctor has seen you use crutches the right way before you use them at home. What are the risks? Using crutches the wrong way can hurt your shoulders, arms, back, armpits, wrists, and hands. To avoid this: Make sure your crutches fit right. Do not put pressure on your armpits when using the crutches. While using crutches, you also have a higher risk of falling. To avoid this: Move objects away from the floor or area where you walk when possible. Get help as needed. Keep walkways well lit. Use a backpack to carry items. How to use your crutches How you use your crutches will depend on why you need them. Your doctor may tell you not to support your body weight (bear weight) on your hurt leg. Or your doctor may let you put some, but not all, of your weight on the hurt leg. Follow instructions from your doctor about putting weight on your leg. Do not put weight on your leg in an amount that causes pain. Walking 1.Stand on your good leg and lift both crutches at the same time. 2.Place the crutches one step-length in front of you. Keep your weight over the hand director of consumer affairs. 3.Bring the good leg forward to meet the crutches or to land a little bit ahead of them. 4.Repeat. Going up steps If there is no handrail: 1.Walk up to steps and put weight on hand director of consumer affairs to step up. 2.Step up with your good leg. 3.Step up with the crutches and your hurt leg. 4.Repeat. If there is a handrail: 1.Hold both crutches in one hand. 2.Place your other hand on the handrail. 3.Put your weight on your arms and lift your good leg up to the step. 4.Bring the crutches and the hurt leg up to that step. 5.Repeat. If you do not feel steady on steps, you can go up steps on your butt. 1.Sit on the lowest step. Have your hurt leg out in front. Hold both crutches flat on the stairs in one hand. 2.Scoot your butt up to the next step. Use your free hand and your good leg to help you do this. Going down steps If there is no handrail: 1.Step down with your hurt leg and crutches. Keep the crutch tips in the center of the step. Do not put crutch tips close to the edge of the step. 2.Step down with your good leg. 3.Repeat. If there is a handrail: 1.Place one hand on the handrail. 2.Hold both crutches with your free hand. 3.Lower your hurt leg and crutches to the step below you. Keep the crutch tips in the center of the step. Do not put the crutch tips close to the edge of the step. 4.Lower your good leg to the next step. 5.Repeat. If you do not feel steady on steps, you can go down steps on your butt. 1.Sit on the highest step. Have your hurt leg out in front. Use your other hand to hold both crutches flat on the stairs. 2.Scoot your butt down to the next step. Use the free hand and your good leg to help you do this. Standing up Move to the edge of the seat. If there is an armrest: 1.Hold the hurt leg forward. 2.Grab the armrest with one hand. Use the other hand to grab the top of the crutches. 3.Use the armrest and your crutches to pull yourself up to stand. If there is no armrest: 1.Hold the hurt leg forward. 2.Hold on to the seat with one hand. Use the other hand to hold the top of the crutches. 3.Use the seat and your crutches to bring yourself up to stand. Sitting down Move back until your leg touches the edge of the seat. If there is an armrest: 1.Hold the hurt leg forward. 2.Grab the armrest with one hand. Use the other hand to grab the top of the crutches. 3.Slowly lower yourself to sit. If there is no armrest: 1.Hold the hurt leg forward. 2.Reach for and hold on to the seat with one hand. Use the other hand to hold on to the top of the crutches. 3.Slowly lower yourself to sit. Get help if: You feel unsteady using crutches. You have any new pain. You lose feeling (feel numb) or you have a tingling feeling. Your crutches do not fit. Get help right away if: You fall. Summary Crutches are used to take weight off of a leg or foot when you stand or walk. Make sure your crutches fit right, and do not put pressure on your armpits when using the crutches. Follow instructions from your doctor about putting weight on your hurt leg. This information is not intended to replace advice given to you by your health care provider. Make sure you discuss any questions you have with your health care provider. Document Revised: 11/26/2019 Document Reviewed: 11/26/2019 [employer] Patient Education 2022 [email or web address]. Follow Up Care 10/28/2023 11:08:54 With:Rayne Rivera Address: [address] [place] [phone] Business (1) When:10/31/2023 12:11:58 With:MORRO HAUSER Address: [address] [place] [phone] Business (1) When:Within 3 Day(s) [facility] 03-02-2023 Evaluation note Encounter Date Diagnosis Assessment Notes Feb, Sore throat (ICD-10 - J02.9) Feb, Viral upper respiratory infection (ICD-10 - J06.9) Viral upper respiratory infection: adult home care material was printed Drink plenty fluids, get plenty of rest. Take Tylenol or Motrin for aches pains or fevers. Take Mucinex or Sudafed as needed for congestion. Follow-up with your family physician if no improvement in 2 to 3 days. May return to work tomorrow [employer] Other 01-26-2023 Hospital Discharge instructions Patient Education 06/15/2022 09:22:12 Acute Urinary Retention, Female, [id number] Acute Urinary Retention, Female Acute urinary retention means that you cannot pee (urinate) at all, or that you pee too little and your bladder is not emptied completely. If it is not treated, it can lead to kidney damage or other serious problems. Follow these instructions at home: Take [id number]-[id number] and prescription medicines only as told by your doctor. Ask your doctor what medicines you should stay away from. Do not take any medicine unless your doctor says it is okay to do so. If you were sent home with a tube that drains pee from the bladder (catheter), take care of it as told by your doctor. Drink enough fluid to keep your pee clear or pale yellow. If you were given an antibiotic, take it as told by your doctor. Do not stop taking the antibiotic even if you start to feel better. Do not use any products that contain nicotine or tobacco, such as cigarettes and e-cigarettes. If you need help quitting, ask your doctor. Watch for changes in your symptoms. Tell your doctor about them. If told, keep track of any changes in your blood pressure at home. Tell your doctor about them. Keep all follow-up visits as told by your doctor. This is important. Contact a doctor if: You have spasms or you leak pee when you have spasms. Get help right away if: You have chills or a fever. You have blood in your pee. You have a tube that drains the bladder and: ?The tube stops draining pee. ?The tube falls out. Summary Acute urinary retention means that you cannot pee at all, or that you pee too little and your bladder is not emptied completely. If it is not treated, it can result in kidney damage or other serious problems. If you were sent home with a tube that drains pee from the bladder, take care of it as told by yourdoctor. Pay attention to any changes in your symptoms. Tell your doctor about them. This information is not intended to replace advice given to you by your health care provider. Make sure you discuss any questions you have with your health care provider. Document Released: 10/23/2008 Document Revised: 04/19/2018 Document Reviewed: 06/08/2017 AppCard Patient Education 2020 [email or web address]. Follow Up Care 06/07/2022 11:50:23 With:Jason COELHO, VALDEMAR Xavier, URO Address: When: Unknown [facility] 01-25-2023 Evaluation note* Encounter Date Diagnosis Assessment Notes Treatment Notes Treatment Clinical Notes May, Hospital discharge follow-up (ICD-10 - Z09) Hospital documentation as well as consult notes images and labs were reviewed in preparation for this visit. This is a very rare case given her age and presentation. Discussed history, follow-ups, plan of care and updated our outpatient EMR, at length. May, Encephalitis (ICD-10 - G04.90) Discussed follow-up with neurology. Much emotional support given to patient and mother.I ensured that they do have follow-up scheduled with LIZZY. Both patient and mother are aware of what symptoms would warrant immediate evaluation by emergency department, when to reach out to specialty and what/when would be appropriate in regards to follow-up with primary care. She has no new or worsening neurologic symptoms, deficits and displays no red flags at this time. May, Anxiety (ICD-10 - F41.9) Patient declines medication management or referral to counseling at this time. She would like to be referred directly to Nicole Trujillo who her mom mother also sees. Nicoel is aware that the referral will be coming over but a formal referral is required through their office. Emotional support provided. Mother and patient are aware of when emergency services would be warranted in regards to mental health. Patient actually seems to be in good spirits and is not tearful during our visit. May, Rodas catheter in place (ICD-10 - Z97.8) Briefly discussed expectations regarding bladder training and follow-up with urology. Discussed increasing water intake and avoiding sugary drinks in order to avoid catheter associated urinary tract infection.She is coping well with the Catheter. She denies symptoms that would indicate underlying bacterial infection, urinary retention, obstruction, or appliance malfunction. Ensured patient has follow-up with urology. 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 Mother confirms that she did schedule the appoint with Dr. Leung who did not see her in-house but is currently obtaining records from the inpatient stay. He has been checking on her periodically since admission.Nothing further needed from primary care today. May, Other Total time of v isit including coordination of care, review of documentation in preparation for visit, education, referrals, documentation total= 60 minutes. Patient to follow-up in 4 months after all specialties have evaluated her outpatient.We will continue to follow her closely and review progress notes as they are provided to us. I will forward this progress note to Urology, Neurology, and Gynecology in preparation for their follow-up visits. *Progress note was completed with the assistance of voice recognition software for dictation purposes. Please excuse any grammatical errors that were not corrected during review process. [employer] Other 01-20-2023 Progress note Author Kt Pearson [facility] June 09, 2022 3:41pm Note Date/Time June 09, 2022 3 :42pm [facility] [address] [place] [address] Neurology Progress Note Signed Patient: Heena Wang MR#: [id number] : 2005 Acct:[id number] Age/Sex: 17 / F Adm Date: 3 Loc: 3T Room: [address] [place] [address] Type: ADM IN Attending Dr: Melo Diana MD Copies to: ~ Date of Service: 06/09/2022 Subjective Subjective Narrative: She states the feeling is much better in her legs and buttocks. She still has paresthesias in her feet. No new symptoms. She is having bowel movements and passing gas. Review of Systems Constitutional Constitutional: Denies fatigue Eyes Eyes: Denies change in vision Gastrointestinal Gastrointestinal: Denies nausea and Denies vomiting Musculoskeletal Musculoskeletal: Denies myalgias Neurologic Neurologic: Denies numbness and Reports tingling Exam Physical Exam Vital Signs: Temp Pulse Resp BP Pulse Ox O2 Del Method 98.0 F 76 18 137/69 98 Room Air 06/09/22 08:43 06/09/22 08:43 06/09/22 08:43 06/09/22 08:43 06/09/22 08:43 06/09/22 08:45 Objective Vital Signs Vital Signs: Vital Signs - 24 hr 06/08/22 12:00 06/08/22 16:00 06/08/22 18:00 Temperature 97.7 F 97.7 F 97.7 F Pulse Rate 82 88 88 Respiratory Rate 18 18 18 Blood Pressure 124/70 134/76 134/76 02 Sat by Pulse Oximetry 98 98 98 Oxygen Delivery Method Room Air Room Air Room Air 06/08/22 19:46 06/08/22 20:15 06/08/22 23:39 Temperature 97.7 F 97.9 F Pulse Rate 81 60 Respiratory Rate 18 18 Blood Pressure 122/70 148/69 H 02 Sat by Pulse Oximetry 98 97 Oxygen Delivery Method Room Air Room Air Room Air 06/09/22 03:14 06/09/22 05:25 06/09/22 08:43 Temperature 97.7 F 98.0 F Pulse Rate 65 76 Respiratory Rate 18 18 Blood Pressure 119/67 137/69 02 Sat by Pulse Oximetry 98 98 Oxygen Delivery Method Room Air Room Air Room Air 06/09/22 08:45 Temperature Pulse Rate Respiratory Rate Blood Pressure 02 Sat by Pulse Oximetry Oxygen Delivery Method Room Air Labs 06/09/22 07:01 06/09/22 07:01 Assessment/Plan (1) Acute urinary retention: Code(s): R33.8 - Other retention of urine Status: Acute (2) Paresthesia of both lower extremities: Code(s): R20.2 - Paresthesia of skin Status: Acute Plan 17-year-old woman with history of scoliosis.? To the emergency room after not being able to urinate for 8+ hours she went to get checked out at [facility].? She was also experiencing tingling paresthesias that were initially from about the level of her umbilicus downward, encompassing the entirety of both legs with fluctuating levels of sensory changes.? She has not exhibited anymotor symptoms.? She is able to ambulate without difficulty and without imbalance.? No loss of coordination.? Despite the paresthesias, sensation seems intact to her throughout.? She also has good pudendal sensation.? While she was over at the other hospital they were able to get an MRI of her lumbar spine, both with and without contrast which per chart review was unremarkable other than her chronic scoliosis findings.?MRI of the thoracic spine was completed andreviewed with Dr. Mae. There does appear to be some questionable finding at T2 with bilateral central increased signal changes. MRI of the brain raises concern for ADEM versus demyelinating disease. LP has been completed as below. She has no signs of bacterial infection. Viral PCR shows herpes simplex virus. She is on valacyclovir. She has also been started on methylprednisolone for treatment of demyelinating disease with acute lesion in the kerwin. 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 The differentialdiagnosis is starting to narrow. We are considering HSV encephalomyelitis, though HSV could be a red aleman. We are also considering acute disseminated encephalomyelitis potentially related to HSV or other recent infection, though Iwould generally expect much more cerebral white matter involvement. And if we focus more on the longitudinally extensive myelitis aspect of this, main considerations would be neuromyelitis optica and anti-MOG associated encephalomyelitis. If antibodies associated with those two conditions are negative and future MRI imaging reveals persistence of the lesions or accumulation of additional white matter lesions then multiple sclerosis would keily bigger consideration. Interval history: Patient states. Paresthesias have improved. Paresthesias predominately in her feet now. Today is day 4/5 of IV Solu-Medrol. IVIG was initiated as well. Today will be day 2/3. 1. MRI scan of the brain shows T2 flair hyperintense signal in the cortex and subcortical white matter of the left frontal lobe in expected location of the accessory motor cortex with corresponding diffusion restriction or abnormal postcontrast enhancement. There is also T2 flair hyperintense signal in the pontine white matter slightly to the right of midline without accompanying diffusion restriction. Subtle enhancement in this location on postcontrast T1 weighted imaging. Inflammatory/demyelinating in nature. 2. MRI of her lumbar spine with and without contrast from June 02, 2022 report was reviewed and is unremarkable. MRI of the thoracic spine as above 3. 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 MRI cervical spine - subtle increased STIR signal in the dorsal aspect of the cord at the level of the odontoid process with subtle enhancement in this location. No additional focal areas of signal abnormality are noted in the cervical cord. No significant spinal canal or neural foraminal narrowing. 5. Lumbar puncture pending * Cell count 160, 110 * RBC 0, 0 * Lymphocytes 87, 81 * Monocytes 13, 9 * Glucose 45, 46 * Protein 61, 59 * Culture negative at 1 day * PCR positive for herpes simplex 2 , HSV culture positive (infectious disease consulted) * Lyme pending * Oligoclonal band pending * Immunoglobulin G index pending * IgG protein synthesis pending * Cytology - atypical cells present with mixed population of cells including abundant lymphocytes, macrophages, and occasional neutrophils. Negative for malignant epithelial cells. 6. Hemoglobin A1c 5.2 7. LFTs normal 8. Sed rate 26, CRP 0.6 9. SUSIE 26 10. LIZZY positive for homogenous pattern. She did see rheumatology outpatient 11. HERNESTO normal 12. B12 368, folate 16.6, TSH 0.85 13. HIV, C. trachomatis, and gonorrhea, and T vaginalis all negative. HSV culture positive 14. NMO pending 15. Anti-MOG antibodies pending 16. Leukocytosis likely related to steroid treatment. 17. We will follow Attestation Statement I agree with the above.? Patient seen and examined. MRI imaging reveals nonenhancing T2 hyperintensity predominantly of the valadez matter of multiple levels of the lower portion of the thoracic cervical spinal cord, a small enhancing white matter lesion in the right side of the kerwin, and anonenhancing subcortical T2 hyperintense lesion in the left frontal lobe.?Possible very faint and subtle posterior cervical cord enhancement at C1-2 level that I think might just be artifactual. CSF WBC 110, 87% lymphocytes. Total protein mildly elevated at 59.? Radiographically she has an encephalomyelitis. 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 We are considering HSVencephalomyelitis, though HSV could be a red aleman. We are also considering acute disseminated encephalomyelitis potentially related to HSV or other recent infection, though I would generally expect much more cerebral white matter involvement. And if we focus more on the longitudinally extensive myelitis aspect of this, main considerations would be neuromyelitis optica and anti-MOG associated encephalomyelitis. If antibodies associated with those two conditionsare negative and future MRI imaging reveals persistence of the lesions or accumulation of additional white matter lesions then multiple sclerosis would be abigger consideration. Today is day 5 of 5 for methylprednisolone IV infusions. Today is day 3 of 3 of IVIG 0.66 g/kg (for a total a 2g/kg). Okay for discharge later today from my perspective. Need outpatient neurology follow-up. She will need serial MR imaging of her brain, cervical spine, and thoracic spine, tentatively in 3 months or so. We talked about coming back for reevaluation with the development of any new focal neurological deficit. Documented By: Kt Pearson DO 06/09/22 1035 Signed By: <Electronically signed by Kt Pearson DO> 06/09/22 1541 [facility] Work Phone: [phone] Progress note Author Kt Pearson [facility] June 08, 2022 3:35pm Note Date/Time June 08, 2022 7 :41am [facility] [address] [place] [address] Neurology Progress Note Signed Patient: Heena Wang MR#: [id number] : 2005 Acct:[id number] Age/Sex: 17 / F Adm Date: 3 Loc: Room: [address] [place] [address] Type: ADM IN Attending Dr: Melo Diana MD Copies to: ~ Date of Service: 06/08/2022 Subjective Subjective Narrative: She states the feeling is much better in her legs and buttocks. She still has paresthesias in her feet. No new symptoms. She is having bowel movements and passing gas. Review of Systems Eyes Eyes: Denies blurry vision and Denies diplopia Cardiovascular Cardiovascular: Denies chest pain Respiratory Respiratory: Denies dyspnea Gastrointestinal Gastrointestinal: Denies nausea Musculoskeletal Musculoskeletal: Denies myalgias, Denies neck pain and Denies stiffness Neurologic Neurologic: Denies localized weakness, Denies headache(s), Denies lack of coordination and Reports paresthesias Exam Physical Exam Vital Signs: Temp Pulse Resp BP Pulse Ox O2 Del Method 97.7 F 80 17 124/64 98 Room Air 06/08/22 03:53 06/08/22 03:53 06/08/22 03:53 06/08/22 03:53 06/08/22 03:53 06/08/22 03:53 Narrative: GENERAL EXAM: * Constitutional - Patient appears well nourished and well groomed * Patient is alert and oriented x3. NEURO EXAM: * Attention span/concentration normal * Speech is clear and fluent * Cranial nerve II. Vision is intact. PAWAN * Cranial nerve III, IV and . Extraocular muscles are intact. No nystagmus is appreciated * Cranial nerve V and VII. No facial asymmetry is appreciated. Temperature and pinprick is equal bilaterally * Cranial nerve VIII hearing is intact * Cranial nerve IX and X speech is clear fluent. Palate elevates symmetrically * Cranial nerve XI head turn side to side full range of motion. Shoulder shrug is equal bilaterally * Cranial nerve XII tongue is midline full range of motion MOTOR EXAM: * Strength is 5/5 throughout. No pronator drift was appreciated * Muscle tone and bulk are normal * Gait not assessed SENSORY EXAM: * Temperature, pinprick, vibration are intact in all 4 extremities and symmetric * Patient reports increased tingling sensation to light touch but sensory loulou ears to be equal * No thoracic level noted with pinprick CEREBELLAR EXAM: * Rmzocy-[id number] and alternating movements are intact and normal in bilateral upper extremities * Rqas-km-[id number] and alternating movements are intact and normal in lower extremities REFLEX EXAM: * 2/4 throughout Objective Vital Signs Vital Signs: Vital Signs - 24 hr 06/07/22 08:00 06/07/22 08:00 06/07/22 11:42 Temperature 98.0 F 98.0 F Pulse Rate 86 95 H Respiratory Rate 16 16 Blood Pressure 128/80 134/74 02 Sat by Pulse Oximetry 99 99 Oxygen Delivery Method Room Air Room Air Room Air 06/07/22 16:00 06/07/22 18:00 06/07/22 21:12 Temperature 98.0 F 98.0 F 98.0 F Pulse Rate 85 85 91 H Respiratory Rate 16 16 18 Blood Pressure 112/67 112/67 135/83 02 Sat by Pulse Oximetry 99 99 96 Oxygen Delivery Method Room Air Room Air 06/07/22 21:14 06/08/22 03:53 Temperature 97.7 F Pulse Rate 80 Respiratory Rate 17 Blood Pressure 124/64 02 Sat by Pulse Oximetry 98 Oxygen Delivery Method Room Air Room Air Labs 06/07/22 05:56 06/07/22 05:56 Assessment/Plan (1) Acute urinary retention: Code(s): R33.8 - Other retention of urine Status: Acute (2) Paresthesia of both lower extremities: Code(s): R20.2 - Paresthesia of skin Status: Acute Plan 17-year-old woman with history of scoliosis.? To the emergency room after not being able to urinate for 8+ hours she went to get checked out at [facility].? She was also experiencing tingling paresthesias that were initially from about the level of her umbilicus downward, encompassing the entirety of both legs with fluctuating levels of sensory changes.? She has not exhibited anymotor symptoms.? She is able to ambulate without difficulty and without imbalance.? No loss of coordination.? Despite the paresthesias, sensation seems intact to her throughout.? She also has good pudendal sensation.? While she was over at the other hospital they were able to get an MRI of her lumbar spine, both with and without contrast which per chart review was unremarkable other than her chronic scoliosis findings.?MRI of the thoracic spine was completed andreviewed with Dr. Mae. There does appear to be some questionable finding at T2 with bilateral central increased signal changes. MRI of the brain raises concern for ADEM versus demyelinating disease. LP has been completed as below. She has no signs of bacterial infection. Viral PCR shows herpes simplex virus. She is on valacyclovir. She has also been started on methylprednisolone for treatment of demyelinating disease with acute lesion in the kerwin. 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 The differentialdiagnosis is starting to narrow. We are considering HSV encephalomyelitis, though HSV could be a red aleman. We are also considering acute disseminated encephalomyelitis potentially related to HSV or other recent infection, though Iwould generally expect much more cerebral white matter involvement. And if we focus more on the longitudinally extensive myelitis aspect of this, main considerations would be neuromyelitis optica and anti-MOG associated encephalomyelitis. If antibodies associated with those two conditions are negative and future MRI imaging reveals persistence of the lesions or accumulation of additional white matter lesions then multiple sclerosis would keily bigger consideration. Interval history: Patient states. Paresthesias have improved. Paresthesias predominately in her feet now. Today is day 4/5 of IV Solu-Medrol. IVIG was initiated as well. Today will be day 2/. 1. MRI scan of the brain shows T2 flair hyperintense signal in the cortex and subcortical white matter of the left frontal lobe in expected location of the accessory motor cortex with corresponding diffusion restriction or abnormal postcontrast enhancement. There is also T2 flair hyperintense signal in the pontine white matter slightly to the right of midline without accompanying diffusion restriction. Subtle enhancement in this location on postcontrast T1 weighted imaging. Inflammatory/demyelinating in nature. 2. MRI of her lumbar spine with and without contrast from June 02, 2022 report was reviewed and is unremarkable. MRI of the thoracic spine as above 3. 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 MRI cervical spine - subtle increased STIR signal in the dorsal aspect of the cord at the level of the odontoid process with subtle enhancement in this location. No additional focal areas of signal abnormality are noted in the cervical cord. No significant spinal canal or neural foraminal narrowing. 5. Lumbar puncture pending * Cell count 160, 110 * RBC 0, 0 * Lymphocytes 87, 81 * Monocytes 13, 9 * Glucose 45, 46 * Protein 61, 59 * Culture negative at 1 day * PCR positive for herpes simplex 2 , HSV culture positive (infectious disease consulted) * Lyme pending * Oligoclonal band pending * Immunoglobulin G index pending * IgG protein synthesis pending * Cytology - atypical cells present with mixed population of cells including abundant lymphocytes, macrophages, and occasional neutrophils. Negative for malignant epithelial cells. 6. Hemoglobin A1c 5.2 7. LFTs normal 8. Sed rate 26, CRP 0.6 9. SUSIE 26 10. LIZZY positive for homogenous pattern. She did see rheumatology outpatient 11. HERNESTO normal 12. B12 368, folate 16.6, TSH 0.85 13. HIV, C. trachomatis, and gonorrhea, and T vaginalis all negative. HSV culture positive 14. NMO pending 15. Anti-MOG antibodies pending 16. Leukocytosis likely related to steroid treatment. 17. We will follow Attestation Statement I agree with the above.? Patient seen and examined. MRI imaging reveals nonenhancing T2 hyperintensity predominantly of the valadez matter of multiple levels of the lower portion of the thoracic cervical spinal cord, a small enhancing white matter lesion in the right side of the kerwin, and anonenhancing subcortical T2 hyperintense lesion in the left frontal lobe.?Possible very faint and subtle posterior cervical cord enhancement at C1-2level that I think might just be artifactual. CSF WBC 110, 87% lymphocytes. Total protein mildly elevated at 59.? Radiographically she has an encephalomyelitis. 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 We are considering HSVencephalomyelitis, though HSV could be a red aleman. We are also considering acute disseminated encephalomyelitis potentially related to HSV or other recent infection, though I would generally expect much more cerebral white matter involvement. And if we focus more on the longitudinally extensive myelitis aspect of this, main considerations would be neuromyelitis optica and anti-MOG associated encephalomyelitis. If antibodies associated with those two conditionsare negative and future MRI imaging reveals persistence of the lesions or accumulation of additional white matter lesions then multiple sclerosis would keily bigger consideration. Today is day 4 of 5 for methylprednisolone IV infusions. Today is day 2 of 3 of IVIG 0.66 g/kg (for a total a 2g/kg). Documented By: Kt Pearson DO 06/08/22 0738 Signed By: <Electronically signed by Kt Pearson DO> 06/08/22 1535 <Electronically signed by RHIANNON Avery> 06/08/[address] [place] [address] Ctr Work Phone: 1(697) 678-659001-19-2023 Progress note Author Melo Diana [facility] June 08, 2022 10:23am Note Date/Time June 08, 2022 1 0:11am [facility] [address] [place] [address] Hospitalist Progress Note Signed Patient: Heena Wang MR#: [id number] : 2005 Acct:[id number] Age/Sex: 17 / F Adm Date: 3 Loc: 3T Room: [address] [place] [address] Type: ADM IN Attending Dr: Melo Diana MD Copies to: ~ Date of Service: 06/08/2022 Subjective Subjective Narrative: Patient notes that the numbness and tingling in her bilateral lower extremities has improved today. She feels new heaviness in her legs, which she describes ashaving sensation in them again. She did receive her first dose of IVIG yesterday. She does have some mild irritation of the vein in which the IVIG wasinfusing. Otherwise, she had no issues with IVIG administration yesterday. Exam Physical Exam Vital Signs: Temp Pulse Resp BP Pulse Ox O2 Del Method 97.7 F 77 18 119/75 98 Room Air 06/08/22 08:00 06/08/22 08:00 06/08/22 08:00 06/08/22 08:00 06/08/22 08:00 06/08/22 08:00 Narrative: Constitutional: Young WF, resting in bed comfortably, in no acute distress HEENT: Moist mucous membranes, neck supple Cardiovascular: RRR, no M/R/G, normal S1 and S2, no JVD Respiratory: Lungs clear to auscultation bilaterally, no wheezes, rales or rhonchi GI: Soft, NTND, normoactive bowel sounds : Deferred Neuro: AAO x3, no focal deficits. CN III-XII grossly intact, Strength 5/5 throughout Extremities: No clubbing, cyanosis or edema Psych: Patient calm, cooperative and conversant Objective Lab Results 06/08/22 07:15 06/08/22 07:15 Microbiology Results Microbiology 06/05/22 16:15 Cerebral Spinal Fluid Aerobic Culture - Final No Growth 2 Days 06/05/22 16:15 Cerebral Spinal Fluid Anaerobic Culture - Final No Anaerobes Isolated 3 Days 06/05/22 16:15 Cerebral Spinal Fluid Gram Stain - Final Meds Allergies and Active Meds Allergies No Known Allergies Allergy (Verified 06/03/22 05:51) Active Meds: Active Medications Generic Name Dose Route Start Last Admin Trade Name Freq PRN Reason Stop Dose Admin Acetaminophen 650 mg 06/02/22 21:44 06/07/22 17:09 Acetaminophen 325 Mg Tablet PO 06/02/23 21:43 650 mg Q6HR PRN Administration Pain Scale 1 - 3 or fever Bisacodyl 10 mg 06/06/22 18:05 06/06/22 18:10 Bisacodyl 10 Mg Supp.Rect IN 06/06/23 18:04 10 mg DAILY PRN Administration Constipation Docusate Sodium 100 mg 06/04/22 21:00 06/08/22 10:08 Docusate 100 Mg Capsule PO 06/04/23 20:59 100 mg BID WILLIAM Administration Hyoscyamine 0.125 mg 06/06/22 11:59 Hyoscyamine Sulfate 0.125 Mg Tab.Rapdis PO 06/06/23 11:58 Q6H PRN Cramping Methylprednisolone Sodium 116 mls @ 116 mls/hr 06/05/22 18:00 06/08/22 10:08 Succinate 1,000 mg/ Sodium IV 06/10/22 17:59 116 mls/hr Chloride DAILY WILLIAM Administration Lactulose 30 gm 06/06/22 18:05 Lactulose 20 Gm/30 Ml Udc PO 06/06/23 18:04 ONCE PRN Severe constipation Morphine Sulfate 2 mg 06/04/22 02:45 06/04/22 02:57 Morphine Sulfate 2 Mg/Ml Vial IV-PUSH 2 mg Q4H PRN Administration Pain Polyethylene Glycol 17 gm 06/04/22 19:45 06/08/22 10:08 Polyethylene Glycol 3350 17 Gm Powd.Pack PO 06/04/23 19:44 17 gm DAILY WILLIAM Administration Valacyclovir HCl 1,000 mg 06/06/22 09:00 06/08/22 10:08 Valacyclovir 500 Mg Tablet PO 06/15/22 22:01 1,000 mg TID WILLIAM Administration A&P - Hospitalist Assessment/Plan (1) Herpes simplex encephalitis: (2) Paresthesia of both lower extremities: (3) Acute urinary retention: (4) Vaginal discharge: (5) Vulvar ulceration: (6) Primary vulvovaginal herpes simplex infection: Plan Assessment/Plan: Patient is a 17-year-old female with a history of severe thoracic and lumbar scoliosis who presents with bilateral lower extremity paresthesias, urinary retention requiring Rodas catheter placement, and HSV genital and RIBBON BLOCKMAKER infection. Bilateral Paresthesia of the Lower Extremities HSV RIBBON BLOCKMAKER Infection White matter lesions in Brain and Thoracic Spine Continue IVIG therapy. Paresthesias have improved more significantly today. Suspect an autoimmune or demyelinating process given findings on MRI brain in cervical and thoracic spine. Unclear how much patient's neurologic complaints are related to this Herpes RIBBON BLOCKMAKER infection. Lumbar puncture results: Lymphocytic pleocytosis, +HSV2 on CSF culture. -1000 mg of IV methylprednisolone x5 days; IVIG x3 days -ID consult appreciated. Patient is going to continue on valacyclovir 1000 mg p.o. TID -Full lumbar puncture results pending.? Discussed with the patient and mother that these results take some time to process and the final results of everythingmay be given in the outpatient setting. -Immunology for: LIZZY positive A, SS?A/Ro 0.2, SS-B/La less than 0.2, Zamora IgG less than 0.2, EPIC AMBULATORY ANALYST 0.2, scleroderma 0.2, Anti-MOG pending. -CSF albumin, oligoclonal IgG bands, serum IgG, serum albumin, in NMO/Aquaporin- 4 IgG, myelin protein, and IgG index pending. -Continue to appreciate neurology consult. Differential remains broad at this time Brain MRI with contrast results: -Cerebral parenchyma: There is T2 and T2 FLAIR hyperintense signal in the cortexand subcortical white matter of the left frontal lobe in the expected location of the accessory motor cortex without corresponding diffusion restriction or abnormal postcontrast enhancement. -Brainstem: There is T2 and FLAIR hyperintense signal in the pontine white matter slightly to the right of midline without accompanying diffusion restriction. There is subtle enhancement in this location on postcontrast T1-weighted imaging. -This may be inflammatory/demyelinating in nature. The differential would include but is not limited to multiple sclerosis, toxic encephalomyelitis, or oracute disseminated encephalomyelitis. Urinary Retention On hospital night #1, patient failed voiding trial.? It took multiple nursing attempts to replace the Rodas catheter. -At this time Rodas catheter is still inserted.? Patient with Rodas catheter at home and then follow-up with urology in the office in 1-2 weeks HSV Vaginitis -Gynecology found significant HSV outbreak and the patient was placed on Valtrex. -Genital cultures for: Chlamydia, HSV, Neisseria gonorrhea, trichomonas vaginalis pending -HIV 1 and 2 antibody screening nonreactive CODE STATUS: Full code Documented By: Melo Diana MD [id number] Signed By: <Electronically signed by Melo Diana MD> 06/08/22 1023 [facility] Work Phone: [phone] 608-859801-19-2023 Progress note Author Melo Diana [facility] June 07, 2022 10:30pm Note Date/Time June 07, 2022 9 :03am [facility] [address] [place] [address] Hospitalist Progress Note Signed Patient: Heena Wang MR#: [id number] : 2005 Acct:[id number] Age/Sex: 17 / F Adm Date: 3 Loc: Room: [address] [place] [address] Type: ADM IN Attending Dr: Melo Diana MD Copies to: ~ Date of Service: 06/07/2022 Subjective Subjective Narrative: Patient states that her paresthesia in her thighs may be improving slightly. The paresthesia in her buttocks and feet remain the same. Other than that she denies acute changes overnight. Patient denies fever, chills, shortness of breath, chest pain, abdominal pain. She denies nausea vomiting. She states that she finally had a bowel movement since being in hospital yesterday. Patient still complains of some vaginal discomfort at this time, but suggests itmay be improving slightly. She continues to deny any motor symptoms, worsening headache, neck stiffness, or ocular symptoms. Exam Physical Exam Vital Signs: Temp Pulse Resp BP Pulse Ox O2 Del Method 98.0 F 86 16 128/80 99 Room Air 06/07/22 08:00 06/07/22 08:00 06/07/22 08:00 06/07/22 08:00 06/07/22 08:00 06/07/22 08:00 Narrative: CONSTITUTIONAL: Patient resting in semirecumbent position with lights off. Appears sleeping when entering room. HEAD: Normocephalic, atraumatic EYES: Normal conjunctiva, no discharge, extraocular muscles intact, PERRL NECK: No rashes, no lesions RESPIRATORY: No distress, lungs clear bilaterally, symmetric chest rise, no wheezes/rales/rhonchi CARDIOVASCULAR: RRR, no murmurs, plus 2/4 radial, dorsalis pedis, posterior tibial pulses bilaterally ABDOMEN: Soft, nontender, nondistended, normal bowel sounds x4 SKIN: No new rashes, lesions NEURO: Cranial nerves grossly intact, no focal neurologic signs, normal speech PSYCHIATRIC: Appropriate mood and affect Objective Lab Results 06/07/22 05:56 06/07/22 05:56 Microbiology Results Microbiology 06/05/22 16:15 Cerebral Spinal Fluid Aerobic Culture - Preliminary No Growth 1 Day 06/05/22 16:15 Cerebral Spinal Fluid Anaerobic Culture - Preliminary No Anaerobes Isolated 1 Day 06/05/22 16:15 Cerebral Spinal Fluid Gram Stain - Final Meds Allergies and Active Meds Allergies No Known Allergies Allergy (Verified 06/03/22 05:51) Active Meds: Active Medications Generic Name Dose Route Start Last Admin Trade Name Freq PRN Reason Stop Dose Admin Acetaminophen 650 mg 06/02/22 21:44 06/06/22 11:30 Acetaminophen 325 Mg Tablet PO 06/02/23 21:43 650 mg Q6HR PRN Administration Pain Scale 1 - 3 or fever Bisacodyl 10 mg 06/06/22 18:05 06/06/22 18:10 Bisacodyl 10 Mg Supp.Rect IN 06/06/23 18:04 10 mg DAILY PRN Administration Constipation Docusate Sodium 100 mg 06/04/22 21:00 06/07/22 08:42 Docusate 100 Mg Capsule PO 06/04/23 20:59 100 mg BID WILLIAM Administration Hyoscyamine 0.125 mg 06/06/22 11:59 Hyoscyamine Sulfate 0.125 Mg Tab.Rapdis PO 06/06/23 11:58 Q6H PRN Cramping Methylprednisolone Sodium 116 mls @ 116 mls/hr 06/05/22 18:00 06/07/22 08:41 Succinate 1,000 mg/ Sodium IV 06/10/22 17:59 116 mls/hr Chloride DAILY WILLIAM Administration Lactulose 30 gm 06/06/22 18:05 Lactulose 20 Gm/30 Ml Udc PO 06/06/23 18:04 ONCE PRN Severe constipation Morphine Sulfate 2 mg 06/04/22 02:45 06/04/22 02:57 Morphine Sulfate 2 Mg/Ml Vial IV-PUSH 2 mg Q4H PRN Administration Pain Polyethylene Glycol 17 gm 06/04/22 19:45 06/07/22 08:42 Polyethylene Glycol 3350 17 Gm Powd.Pack PO 06/04/23 19:44 17 gm DAILY WILLIAM Administration Valacyclovir HCl 1,000 mg 06/06/22 09:00 06/07/22 08:41 Valacyclovir 500 Mg Tablet PO 1,000 mg TID WILLIAM Administration A&P - Hospitalist Assessment/Plan (1) Herpes simplex encephalitis: (2) Paresthesia of both lower extremities: (3) Acute urinary retention: (4) Vaginal discharge: (5) Vulvar ulceration: (6) Primary vulvovaginal herpes simplex infection: Plan Assessment/Plan: Patient is a 17-year-old female with a history of severe thoracic and lumbar scoliosis who presents with bilateral lower extremity paresthesias, urinary retention requiring Rodas catheter placement, and HSV genital and RIBBON BLOCKMAKER infection. Bilateral Paresthesia of the Lower Extremities HSV RIBBON BLOCKMAKER Infection White matter lesions in Brain and Thoracic Spine After discussion with neurology today, will start patient on IVIG therapy. Paresthesias have mildly improved, have moved down from the region of her umbilicus down to her ankle and foot region. Unclear how much patient's neurologic complaints are related to this Herpes RIBBON BLOCKMAKER infection. Lumbar puncture results: Clear, colorless fluid with elevated total nucleated cells, elevated lymphocytes, elevated total protein, +HSV2 on CSF culture. -1000 mg of IV methylprednisolone x5 days; IVIG x3 days -ID consult appreciated. Patient is going to continue on valacyclovir 1000 mg p.o. TID -MR Cervical Spine to complete workup -Will discuss possible discharge with neurology and ID given that antiviral medication is oral and patient is not in acute acute distress. -Additional lumbar puncture results pending.? Discussed with the patient and mother that these results take some time to process and the final results of everything may be given in the outpatient setting. -Immunology for: LIZZY positive A, SS?A/Ro 0.2, SS-B/La less than 0.2, Zamora IgG less than 0.2, EPIC AMBULATORY ANALYST 0.2, scleroderma 0.2, Anti-MOG pending. -CSF albumin, oligoclonal IgG bands, serum IgG, serum albumin, in NMO/Aquaporin- 4 IgG, myelin protein, and IgG index pending. -Continue to appreciate neurology consult. Differential remains broad at this time Brain MRI with contrast results: -Cerebral parenchyma: There is T2 and T2 FLAIR hyperintense signal in the cortexand subcortical white matter of the left frontal lobe in the expected location of the accessory motor cortex without corresponding diffusion restriction or abnormal postcontrast enhancement. -Brainstem: There is T2 and FLAIR hyperintense signal in the pontine white matter slightly to the right of midline without accompanying diffusion restriction. There is subtle enhancement in this location on postcontrast T1-weighted imaging. -This may be inflammatory/demyelinating in nature. The differential would include but is not limited to multiple sclerosis, toxic encephalomyelitis, or oracute disseminated encephalomyelitis. Urinary Retention On hospital night #1, patient failed voiding trial.? It took multiple nursing attempts to replace the Rodas catheter. -At this time Rodas catheter is still inserted.? Patient with Rodas catheter at home and then follow-up with urology in the office in 1-2 weeks HSV Vaginitis -Gynecology found significant HSV outbreak and the patient was placed on Valtrex. -Genital cultures for: Chlamydia, HSV, Neisseria gonorrhea, trichomonas vaginalis pending -HIV 1 and 2 antibody screening nonreactive Attending attestation: Patient was personally seen by me on the day of encounter. I reviewed her history and performed clemons elements of exam and formulated the plan of care and confirmed the medical student's note above. Documented By: Melo Diana MD [id number] Signed By: <Electronically signed by Melo Diana MD> 06/07/22 2230 [facility] Work Phone: [phone] 363-983801-18-2023 Progress note Author Kt Pearson [facility] June 07, 2022 3:13pm Note Date/Time June 07, 2022 7 :38am [facility] [address] [place] [address] Neurology Progress Note Signed Patient: Heena Wang MR#: [id number] : 2005 Acct:[id number] Age/Sex: 17 / F Adm Date: 3 Loc: Room: [address] [place] [address] Type: ADM IN Attending Dr: Melo Diana MD Copies to: ~ Date of Service: 06/07/2022 Subjective Subjective Narrative: States she still has some paresthesias in her buttocks and her feet but the paresthesias in her legs have improved significantly. No new symptoms. She didhave a bowel movement. Review of Systems Eyes Eyes: Denies blurry vision and Denies diplopia Cardiovascular Cardiovascular: Denies chest pain Respiratory Respiratory: Denies dyspnea Gastrointestinal Gastrointestinal: Denies nausea Genitourinary Comments: Has a Rodas catheter Musculoskeletal Musculoskeletal: Denies back pain, Denies myalgias, Denies neck pain and Denies stiffness Neurologic Neurologic: Denies abnormal speech, Denies confusion, Denies convulsions, Deniesdizziness, Denies headache(s) and Reports paresthesias Exam Physical Exam Vital Signs: Temp Pulse Resp BP Pulse Ox O2 Del Method 98.0 F 71 16 110/63 97 Room Air 06/06/22 20:00 06/07/22 04:00 06/07/22 04:00 06/07/22 04:00 06/07/22 04:00 06/07/22 04:00 Narrative: GENERAL EXAM: * Constitutional - Patient appears well nourished and well groomed * Patient is alert and oriented x3. NEURO EXAM: * Attention span/concentration normal * Speech is clear and fluent * Cranial nerve II. Vision is intact. PAWAN * Cranial nerve III, IV and . Extraocular muscles are intact. No nystagmus is appreciated * Cranial nerve V and VII. No facial asymmetry is appreciated. Temperature and pinprick is equal bilaterally * Cranial nerve VIII hearing is intact * Cranial nerve IX and X speech is clear fluent. Palate elevates symmetrically * Cranial nerve XI head turn side to side full range of motion. Shoulder shrug is equal bilaterally * Cranial nerve XII tongue is midline full range of motion MOTOR EXAM: * Strength is 5/5 throughout. No pronator drift was appreciated * Muscle tone and bulk are normal * Gait not assessed SENSORY EXAM: * Temperature, pinprick, vibration are intact in all 4 extremities and symmetric * Patient reports increased tingling sensation to light touch but sensory appears to be equal * No thoracic level noted with pinprick CEREBELLAR EXAM: * [id number] and alternating movements are intact and normal in bilateral upper extremities * Srhm-bu-[id number] and alternating movements are intact and normal in lower extremities REFLEX EXAM: * 2/4 throughout Objective Vital Signs Vital Signs: Vital Signs - 24 hr 06/06/22 08:00 06/06/22 08:00 06/06/22 11:12 Temperature Pulse Rate 96 H 106 H Respiratory Rate 16 16 Blood Pressure 150/73 H 157/79 H 02 Sat by Pulse Oximetry 99 98 Oxygen Delivery Method Room Air Room Air Room Air 06/06/22 15:32 06/06/22 20:00 06/06/22 20:00 Temperature 98.0 F Pulse Rate 112 H 104 H Respiratory Rate 18 18 Blood Pressure 129/71 139/89 02 Sat by Pulse Oximetry 97 97 Oxygen Delivery Method Room Air Room Air Room Air 06/06/22 23:27 06/07/22 04:00 Temperature Pulse Rate 75 71 Respiratory Rate 18 16 Blood Pressure 118/67 110/63 02 Sat by Pulse Oximetry 97 97 Oxygen Delivery Method Room Air Room Air Labs 06/07/22 05:56 06/07/22 05:56 Assessment/Plan (1) Acute urinary retention: Code(s): R33.8 - Other retention of urine Status: Acute (2) Paresthesia of both lower extremities: Code(s): R20.2 - Paresthesia of skin Status: Acute Plan 17-year-old woman with history of scoliosis.? To the emergency room after not being able to urinate for 8+ hours she went to get checked out at [facility].? She was also experiencing tingling paresthesias that were initially from about the level of her umbilicus downward, encompassing the entirety of both legs with fluctuating levels of sensory changes.? She has not exhibited anymotor symptoms.? She is able to ambulate without difficulty and without imbalance.? No loss of coordination.? Despite the paresthesias, sensation seems intact to her throughout.? She also has good pudendal sensation.? While she was over at the other hospital they were able to get an MRI of her lumbar spine, both with and without contrast which per chart review was unremarkable other than her chronic scoliosis findings.?MRI of the thoracic spine was completed andreviewed with Dr. Mae. There does appear to be some questionable finding at T2 with bilateral central increased signal changes. MRI of the brain raises concern for ADEM versus demyelinating disease. LP has been completed as below. She has no signs of bacterial infection. Viral PCR shows herpes simplex virus. She is on valacyclovir. She has also been started on methylprednisolone for treatment of demyelinating disease with acute lesion in the kerwin. 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 The differentialdiagnosis is starting to narrow. We are considering HSV encephalomyelitis, though HSV could be a red aleman. We are also considering acute disseminated encephalomyelitis potentially related to HSV or other recent infection, though Iwould generally expect much more cerebral white matter involvement. And if we focus more on the longitudinally extensive myelitis aspect of this, main considerations would be neuromyelitis optica and anti-MOG associated encephalomyelitis. If antibodies associated with those two conditions are negative and future MRI imaging reveals persistence of the lesions or accumulation of additional white matter lesions then multiple sclerosis would keily bigger consideration. Interval history: Patient states. Seizures have improved. Still present in herbuttocks and feet but not as severe. Paresthesias in her legs have significantly improved but still slightly noticeable. She did have a bowel movement. No new issues or concerns. 1. MRI scan of the brain shows T2 flair hyperintense signal in the cortex and subcortical white matter of the left frontal lobe in expected location of the accessory motor cortex with corresponding diffusion restriction or abnormal postcontrast enhancement. There is also T2 flair hyperintense signal in the pontine white matter slightly to the right of midline without accompanying diffusion restriction. Subtle enhancement in this location on postcontrast T1 weighted imaging. Inflammatory/demyelinating in nature. 2. MRI of her lumbar spine with and without contrast from June 02, 2022 report was reviewed and is unremarkable. MRI of the thoracic spine as above 3. 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 MRI cervical spine - subtle increased STIR signal in the dorsal aspect of the cord at the level of the odontoid process with subtle enhancement in this location. No additional focal areas of signal abnormality are noted in the cervical cord. No significant spinal canal or neural foraminal narrowing. 5. Lumbar puncture pending * Cell count 160, 110 * RBC 0, 0 * Lymphocytes 87, 81 * Monocytes 13, 9 * Glucose 45, 46 * Protein 61, 59 * Culture negative at 1 day * PCR positive for herpes simplex 2 (infectious disease consulted) * Lyme pending * Oligoclonal band pending * Immunoglobulin G index pending * IgG protein synthesis pending * Cytology - atypical cells present with mixed population of cells including abundant lymphocytes, macrophages, and occasional neutrophils. Negative for malignant epithelial cells. 6. Hemoglobin A1c 5.2 7. LFTs normal 8. Sed rate 26, CRP 0.6 9. SUSIE 26 10. LIZZY positive for homogenous pattern 11. HERNESTO normal 12. B12 368, folate 16.6, TSH 0.85 13. HIV, C. trachomatis, HSV, and gonorrhea, and T vaginalis all negative 14. NMO pending 15. Anti-MOG antibodies pending 16. Leukocytosis likely related to steroid treatment. 17. Okay to discharge from neurological standpoint. She will need 2 more dosesof IV steroids in the outpatient infusion center. Attestation Statement I agree with the above.? Patient seen and examined. MRI imaging reveals nonenhancing T2 hyperintensity predominantly of the valadez matter of multiple levels of the lower portion of the thoracic cervical spinal cord, a small enhancing white matter lesion in the right side of the kerwin, and anonenhancing subcortical T2 hyperintense lesion in the left frontal lobe.?Possible very faint and subtle posterior cervical cord enhancement at C1-2level that I think might just be artifactual. CSF WBC 110, 87% lymphocytes. Total protein mildly elevated at 59.? LIZZY is positive (1:160) and strong family history of autoimmune disorders. 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 The differential diagnosis is starting to narrow. We are considering HSV encephalomyelitis, though HSV could be a red aleman. We are also considering acute disseminated encephalomyelitispotentially related to HSV or other recent infection, though I would generally expect much more cerebral white matter involvement. And if we focus more on the longitudinally extensive myelitis aspect of this, main considerations would be neuromyelitis optica and anti-MOG associated encephalomyelitis. If antibodies associated with those two conditions are negative and future MRI imaging revealspersistence of the lesions or accumulation of additional white matter lesions then multiple sclerosis would be a bigger consideration. Today is day 3 of 3 for inpatient methylprednisolone IV infusions and I would like for her to have 2 additional infusions outpatient. Because of a lack of dramatic improvement in her symptoms, we will also start IVIG 0.66 g/kg with first dose today and provided that it is tolerated then two additional doses outpatient (for a total a 2g/kg). Documented By: Kt Pearson DO 06/07/22 0737 Signed By: <Electronically signed by Kt Pearson DO> 06/07/22 1513 <Electronically signed by RHIANNON Avery> 06/07/22 [id number] [facility] Work Phone: [phone] 745-545801-17-2023 Progress note Author Melo Diana [facility] June 06, 2022 4:37pm Note Date/Time June 06, 2022 8 :26am [facility] [address] [place] [address] Hospitalist Progress Note Signed Patient: Heena Wang MR#: [id number] : 2005 Acct:[id number] Age/Sex: 17 / F Adm Date: 3 Loc: 3T Room: [address] [place] [address] Type: ADM IN Attending Dr: Melo Diana MD Copies to: ~ Date of Service: 06/06/2022 Subjective Subjective Narrative: Patient received lumbar puncture yesterday. She states that she developed a slight headache after the procedure but was aware that was to be expected. Thismorning she states that she feels that there is less tingling in her thighs. She states that the numbness/ asleep feeling is still present in her buttocks and feet. Patient also reports that she feels as if she is able to sit up better this morning. She tells me that yesterday she required help sitting up from supine position in bed--today this is not the case. Patient denies fever, chills, nausea, vomiting, chest pain, shortness of breath. She denies abdominal pain, but states that she has not had a bowel movement in 5 days. The catheter is still in place. Patient states that the vaginal discomfort is still present and not has not improved. She continues to deny anymotor, ocular, or other neurological symptoms at this time. Exam Physical Exam Vital Signs: Temp Pulse Resp BP Pulse Ox O2 Del Method 97.7 F 84 18 151/72 H 96 Room Air 06/06/22 03:26 06/06/22 03:26 06/06/22 03:26 06/06/22 03:26 06/06/22 03:26 06/06/22 03:26 Narrative: CONSTITUTIONAL: Patient resting comfortably in semirecumbent position. Lights off. HEAD: Normocephalic, atraumatic EYES: Extraocular muscles intact, PERRLA, normal conjunctiva, no discharge NECK: No rashes, no lesions RESPIRATORY: No distress, lungs clear bilaterally, symmetric chest rise, no wheezes/rales/rhonchi CARDIOVASCULAR: RRR, no murmurs, plus 2 out of 4 radial, dorsalis pedis, posterior tibial pulses bilaterally, no peripheral edema ABDOMEN: Soft, nontender, nondistended, hypoactive bowel sounds x4 SKIN: No rashes, no lesions NEURO: Cranial nerves grossly intact, no focal neurologic signs, normal speech, upper and lower extremity muscle tone plus 5 out of 5 bilaterally. Patient ableto ambulate my hands were cold in her feet, but continues to report numbness andtingling feeling bilaterally PSYCHIATRIC: Appropriate mood and affect Objective Lab Results 06/06/22 07:10 06/06/22 07:10 Microbiology Results Microbiology 06/05/22 16:15 Cerebral Spinal Fluid Aerobic Culture - Preliminary No Growth 1 Day 06/05/22 16:15 Cerebral Spinal Fluid Anaerobic Culture - Preliminary No Anaerobes Isolated 1 Day 06/05/22 16:15 Cerebral Spinal Fluid Gram Stain - Final 06/05/22 16:15 Cerebral Spinal Fluid CSF (PCR) - Final Meds Allergies and Active Meds Allergies No Known Allergies Allergy (Verified 06/03/22 05:51) Active Meds: Active Medications Generic Name Dose Route Start Last Admin Trade Name Freq PRN Reason Stop Dose Admin Acetaminophen 650 mg 06/02/22 21:44 06/05/22 11:21 Acetaminophen 325 Mg Tablet PO 06/02/23 21:43 650 mg Q6HR PRN Administration Pain Scale 1 - 3 or fever Docusate Sodium 100 mg 06/04/22 21:00 06/05/22 21:17 Docusate 100 Mg Capsule PO 06/04/23 20:59 100 mg BID WILLIAM Administration Methylprednisolone Sodium 116 mls @ 116 mls/hr 06/05/22 18:00 06/05/22 18:20 Succinate 1,000 mg/ Sodium IV 06/08/22 17:59 116 mls/hr Chloride DAILY WILLIAM Administration Morphine Sulfate 2 mg 06/04/22 02:45 06/04/22 02:57 Morphine Sulfate 2 Mg/Ml Vial IV-PUSH 2 mg Q4H PRN Administration Pain Polyethylene Glycol 17 gm 06/04/22 19:45 06/05/22 09:08 Polyethylene Glycol 3350 17 Gm Powd.Pack PO 06/04/23 19:44 17 gm DAILY WILLIAM Administration Valacyclovir HCl 1,000 mg 06/06/22 09:00 Valacyclovir 500 Mg Tablet PO TID [facility] - Hospitalist Assessment/Plan (1) Herpes simplex encephalitis: (2) Paresthesia of both lower extremities: (3) Acute urinary retention: (4) Vulvar ulceration: (5) Vaginal discharge: (6) Primary vulvovaginal herpes simplex infection: Plan Assessment/Plan: Patient is a 17-year-old female with a history of severe thoracic and lumbar scoliosis who presents with bilateral lower extremity paresthesias, urinary retention requiring Rodas catheter placement. Bilateral Paresthesia of the Lower Extremities HSV RIBBON BLOCKMAKER 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 Unclear how much patient's neurologic complaints are related to this Herpes RIBBON BLOCKMAKER infection. Lumbar puncture results: Clear, colorless fluid with elevated total nucleated cells, elevated lymphocytes, elevated total protein, +HSV2 on CSF culture. -Day 2/3 of 1000 mg of IV methylprednisolone; May consider more inpatient treatment if clinical improvement -ID consult appreciated. Patient is going to continue on valacyclovir 1000 mg p.o. TID -MR Cervical Spine to complete workup -Will discuss possible discharge with neurology and ID given that antiviral medication is oral and patient is not in acute acute distress. -Additional lumbar puncture results pending.? Discussed with the patient and mother that these results take some time to process and the final results of everything may be given in the outpatient setting. -Immunology for: LIZZY, SS?A/Ro, SS-B/La, Zamora IgG, [employer], scleroderma pending -CSF albumin, oligoclonal IgG bands, serum IgG, serum albumin, in NMO/Aquaporin- 4 IgG, myelin protein, and IgG index pending. -Continue to appreciate neurology consult. Latest note suggest that the patientgets the diagnostic criteria for MS, although other etiologies continue to be investigated. Brain MRI with contrast results: -Cerebral parenchyma: There is T2 and T2 FLAIR hyperintense signal in the cortexand subcortical white matter of the left frontal lobe in the expected location of the accessory motor cortex without corresponding diffusion restriction or abnormal postcontrast enhancement. -Brainstem: There is T2 and FLAIR hyperintense signal in the pontine white matter slightly to the right of midline without accompanying diffusion restriction. There is subtle enhancement in this location on postcontrast T1-weighted imaging. -This may be inflammatory/demyelinating in nature. The differential would include but is not limited to multiple sclerosis, toxic encephalomyelitis, or oracute disseminated encephalomyelitis. Urinary Retention On hospital night #1, patient failed voiding trial.? It took multiple nursing attempts to replace the Rodas catheter. -At this time Rodas catheter is still inserted.? Patient with Rodas catheter at home and then follow-up with urology in the office in 1-2 weeks HSV Vaginitis -Gynecology found significant HSV outbreak and the patient was placed on Valtrex. -Genital cultures for: Chlamydia, HSV, Neisseria gonorrhea, trichomonas vaginalis pending -HIV 1 and 2 antibody screening nonreactive CODE STATUS: Full Code Documented By: Melo Diana MD 3 [id number] Signed By: <Electronically signed by Melo Diana MD> 06/06/22 1637 [facility] Work Phone: [phone] 448-801101-17-2023 Progress note Author Kt Pearson [facility] June 06, 2022 3:31pm Note Date/Time June 06, 2022 7 :55am [facility] [address] [place] [address] Neurology Progress Note Signed Patient: Heena Wang MR#: [id number] : 2005 Acct:[id number] Age/Sex: 17 / F Adm Date: 3 Loc: 3T Room: 6R4035-8 Type: ADM IN Attending Dr: Melo Diana MD Copies to: ~ Date of Service: 06/06/2022 Subjective Subjective Narrative: Patient denies headache or neck pain. She denies vision changes. Paresthesias in her proximal lower extremities is improved but still persistent. Still has significant paresthesias in her buttocks and her distal lower extremities. She denies weakness. Review of Systems Eyes Eyes: Denies blurry vision, Denies diplopia and Denies loss of vision ENT Ears, Nose, Mouth, and Throat: Denies headache(s) Cardiovascular Cardiovascular: Denies chest pain Respiratory Respiratory: Denies dyspnea Gastrointestinal Gastrointestinal: Denies nausea and Denies vomiting Musculoskeletal Musculoskeletal: Denies myalgias Neurologic Neurologic: Denies abnormal gait, Denies abnormal speech, Denies confusion, Denies convulsions, Denies localized weakness, Denies headache(s) and Reports paresthesias Exam Physical Exam Vital Signs: Temp Pulse Resp BP Pulse Ox O2 Del Method 97.7 F 84 18 151/72 H 96 Room Air 06/06/22 03:26 06/06/22 03:26 06/06/22 03:26 06/06/22 03:26 06/06/22 03:26 06/06/22 03:26 Narrative: GENERAL EXAM: * Constitutional - Patient appears well nourished and well groomed * Patient is alert and oriented x3. NEURO EXAM: * Attention span/concentration normal * Speech is clear and fluent * Cranial nerve II. Vision is intact. PAWAN * Cranial nerve III, IV and . Extraocular muscles are intact. No nystagmus is appreciated * Cranial nerve V and VII. No facial asymmetry is appreciated. Temperature and pinprick is equal bilaterally * Cranial nerve VIII hearing is intact * Cranial nerve IX and X speech is clear fluent. Palate elevates symmetrically * Cranial nerve XI head turn side to side full range of motion. Shoulder shrug is equal bilaterally * Cranial nerve XII tongue is midline full range of motion MOTOR EXAM: * Strength is 5/5 throughout. No pronator drift was appreciated * Muscle tone and bulk are normal * Gait not assessed SENSORY EXAM: * Temperature, pinprick, vibration are intact in all 4 extremities and symmetric * Patient reports increased tingling sensation to light touch but sensory appears to be equal * No thoracic level noted with pinprick CEREBELLAR EXAM: * [id number] and alternating movements are intact and normal in bilateral upper extremities * [id number] and alternating movements are intact and normal in lower extremities REFLEX EXAM: * 2/4 throughout Objective Vital Signs Vital Signs: Vital Signs - 24 hr 06/05/22 08:00 06/05/22 08:00 06/05/22 11:19 Temperature 98.4 F Pulse Rate 108 H 97 H Respiratory Rate 16 16 Blood Pressure 124/80 127/76 02 Sat by Pulse Oximetry 97 96 Oxygen Delivery Method Room Air Room Air 06/05/22 16:00 06/05/22 19:48 06/05/22 19:49 Temperature 98.6 F Pulse Rate 89 88 Respiratory Rate 18 18 Blood Pressure 128/82 136/86 02 Sat by Pulse Oximetry 97 97 Oxygen Delivery Method Room Air Room Air Room Air 06/06/22 00:00 06/06/22 03:26 Temperature 98.6 F 97.7 F Pulse Rate 94 H 84 Respiratory Rate 18 18 Blood Pressure 161/69 H 151/72 H 02 Sat by Pulse Oximetry 97 96 Oxygen Delivery Method Room Air Room Air Labs 06/06/22 07:10 06/02/22 22:30 Assessment/Plan (1) Acute urinary retention: Code(s): R33.8 - Other retention of urine Status: Acute (2) Paresthesia of both lower extremities: Code(s): R20.2 - Paresthesia of skin Status: Acute Plan 17-year-old woman with history of scoliosis.? To the emergency room after not being able to urinate for 8+ hours she went to get checked out at [facility].? She was also experiencing tingling paresthesias that were initially from about the level of her umbilicus downward, encompassing the entirety of both legs with fluctuating levels of sensory changes.? She has not exhibited anymotor symptoms.? She is able to ambulate without difficulty and without imbalance.? No loss of coordination.? Despite the paresthesias, sensation seems intact to her throughout.? She also has good pudendal sensation.? While she was over at the other hospital they were able to get an MRI of her lumbar spine, both with and without contrast which per chart review was unremarkable other than her chronic scoliosis findings.?MRI of the thoracic spine was completed and reviewed with Dr. Mae. There does appear to be some questionable finding at T2 with bilateral central increased signal changes. MRI of the brain raises concern for ADEM versus demyelinating disease. LP has been completed as below. She has no signs of bacterial infection. Viral PCR shows herpes simplex virus. She is on valacyclovir. She has also been started on methylprednisolone for treatment of demyelinating disease with acute lesion in the kerwin. Interval history: Paresthesias are persistent. Fluctuate in intensity. Most prominent in her buttocks and distal lower extremities today. No new symptoms. Denies headache or neck pain. 1. MRI scan of the brain shows T2 flair hyperintense signal in the cortex and subcortical white matter of the left frontal lobe in expected location of the accessory motor cortex with corresponding diffusion restriction or abnormal postcontrast enhancement. There is also T2 flair hyperintense signal in the pontine white matter slightly to the right of midline without accompanying diffusion restriction. Subtle enhancement in this location on postcontrast T1 weighted imaging. Inflammatory/demyelinating in nature. 2. MRI of her lumbar spine with and without contrast from June 02, 2022 report was reviewed and is unremarkable. MRI of the thoracic spine as above 3. 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 Lumbar puncture pending * Cell count 160, 110 * RBC 0, 0 * Lymphocytes 87, 81 * Monocytes 13, 9 * Glucose 45, 46 * Protein 61, 59 * Culture negative at 1 day * PCR positive for herpes simplex 2 (infectious disease consulted) * Lyme pending * Oligoclonal band pending * Immunoglobulin G index pending * IgG protein synthesis pending 5. Hemoglobin A1c 5.2 6. LFTs normal 7. Sed rate 26, CRP 0.6 8. SUSIE pending 9. LIZZY pending 10. HERNESTO pending 11. B12 368, folate 16.6, TSH 0.85 12. HIV negative, C. trachomatis, HSV, and gonorrhea, and T vaginalis pending 13. Continue methylprednisolone 1 g IV. Today is day 2 of 3 doses. She is also on Valacyclovir 1 g 3 times a day. She has had 4 doses [address] Vitale. 14. We will follow Attestation Statement I agree with the above.? Patient seen and examined. MRI imaging reveals nonenhancing T2 hyperintensity predominantly of the valadez matter of multiple levels of the lower portion of the thoracic cervical spinal cord, a small enhancing white matter lesion in the right side of the kerwin, and anonenhancing subcortical T2 hyperintense lesion in the left frontal lobe.? The thoracic spinal cord abnormality is the only thing that could explain the symptoms she presented with (sensory paresthesias from the T10 dermatome downward as well as new onset urinary retention and constipation) - though thosesymptoms are acute, oddly there is no contrast-enhancement in that area.? The pontine lesion and the subcortical frontal lesion are seemingly without symptomatic correlate. CSF WBC 110, 87% lymphocytes. Total protein mildly elevated at 59. LIZZY is positive (1:160) and strong family history of autoimmune disorders. 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 The differential diagnosis is starting to narrow. We are considering HSV encephalomyelitis, though HSV could be a red aleman. We are also considering acute disseminated encephalomyelitispotentially related to HSV or other recent infection, though I would generally expect much more cerebral white matter involvement. And if we focus more on the longitudinally extensive myelitis aspect of this, main considerations would be neuromyelitis optica and anti-MOG associated encephalomyelitis. If antibodies associated with those two conditions are negative and future MRI imaging revealspersistence of the lesions or accumulation of additional white matter lesions then multiple sclerosis would be a bigger consideration. Today is day 2 of 3 for inpatient methylprednisolone IV infusions and I would like for her to have 2 additional infusions outpatient if she is discharged by that time. If not showing signs of improvement IVIG will be considered. Management of the antiviral medication deferred to Dr. Vitale. It looks like at this point she will be discharged requiring continuous or intermittent catheterization. She still has not had a bowel movement, which would need to happen prior to discharge. Documented By: Kt Pearson DO 06/06/22 [id number] Signed By: <Electronically signed by Kt Pearson DO> 06/06/22 1531 <Electronically signed by RHIANNON Avery> 06/06/22 [id number] [facility] Work Phone: [phone] [id number] Consult note Author Rayne Vitale [facility] June 06, 2022 10:21am Note Date/Time June 06, 2022 1 0:09am [facility] [address] [place] [address] Infect. Disease Consult Note Signed Patient: Heena Wang MR#: [id number] : 2005 Acct:[id number] Age/Sex: 17 / F Adm Date: 3 Loc: Room: [address] [place] [address] Type: ADM IN Attending Dr: Melo Diana MD Copies to: WINNIE Thomas MD Michael S Blank, MD~ HPI Data of Consult Consult date: 06/06/22 Requesting Physician: Melo Diana MD Primary Care Provider: Morro Hauser APRN Consult Narrative History of present illness: Ms. Wang is a 17 year old female who was admitted mostly because she could not urinate for period of time. She had seen at [facility] and was given oral Flagyl and topical nystatin. She then developed some genital lesions. Due to the fact she could not urinate she came to the hospital and now has a Rodas catheter. Work-up for potential demyelinating disease ongoing based on lesions that were present on imaging. She had a CSF analysis that actually was abnormalwith elevated white count and lymphocytes that were predominant. PCR panel was positive for HSV-2. She is placed on oral Valtrex. Of note she is having outbreak now of herpes in her vaginal area CC: Melo Diana MD Review of Systems Review of Systems All other systems reviewed & are negative unless noted below or in HPI [facility] Attestation Statement: The following information was validated with the patient. Vaccinated for COVID-19?: Yes Medical History (Updated 06/06/22 @ 10:19 by Rayne Vitale MD) Scoliosis Social History Smoking Status: Never smoker Substance Use Type: None Allergies and Medications Allergies and Active Meds Allergies No Known Allergies Allergy (Verified 06/03/22 05:51) Active Medications Acetaminophen (Acetaminophen 325 Mg Tablet) 650 mg PO Q6HR PRN PRN Reason: Pain Scale 1 - 3 or fever Stop: 06/02/23 21:43 Last Admin: 06/05/22 11:21 Dose: 650 mg Docusate Sodium (Docusate 100 Mg Capsule) 100 mg PO BID [facility] Stop: 06/04/23 20:59 Last Admin: 06/06/22 08:46 Dose: 100 mg Methylprednisolone Sodium Succinate 1,000 mg/ Sodium Chloride 116 mls @ 116 mls/hr IV DAILY [facility] Stop: 06/08/22 17:59 Last Admin: 06/06/22 09:47 Dose: 116 mls/hr Morphine Sulfate (Morphine Sulfate 2 Mg/Ml Vial) 2 mg IV-PUSH Q4H PRN PRN Reason: Pain Last Admin: 06/04/22 02:57 Dose: 2 mg Polyethylene Glycol (Polyethylene Glycol 3350 17 Gm Powd.Pack) 17 gm PO DAILY [facility] Stop: 06/04/23 19:44 Last Admin: 06/06/22 08:46 Dose: 17 gm Valacyclovir HCl (Valacyclovir 500 Mg Tablet) 1,000 mg PO TID [facility] Last Admin: 06/06/22 08:46 Dose: 1,000 mg Exam Physical Exam Vital Signs: Vital Signs Temp Pulse Resp BP Pulse Ox O2 Del Method 06/06/22 08:00 Room Air 06/06/22 08:00 96 H 16 150/73 H 99 Room Air 06/06/22 03:26 97.7 F 84 18 151/72 H 96 Room Air 06/06/22 00:00 98.6 F 94 H 18 161/69 H 97 Room Air 06/05/22 19:49 Room Air 06/05/22 19:48 98.6 F 88 18 136/86 97 Room Air 06/05/22 16:00 89 18 128/82 97 Room Air 06/05/22 11:19 98.4 F 97 H 16 127/76 96 Room Air Const General: cooperative, healthy appearing and comfortable Nutritional Appearance: average body habitus Orientation: oriented x3 HEENT Head: normal to inspection Ears: hearing grossly normal bilaterally Face and sinus: normal facial exam Mouth: oral mucosae normal Throat: posterior oropharynx normal Eyes General: appearance normal, both eyes and all related structures Neck Neck: normal visual inspection Chest Chest palpation & inspection: normal inspection of the chest Resp Effort & Inspection: normal respiratory effort Auscultation: clear to auscultation bilaterally Cardio Rate: regular rate Rhythm: regular rhythm GI Inspection: normal to inspection Palpation: soft and nontender Auscultation: normal bowel sounds Skin General: rashes and/or lesions noted ( deferred) Neuro General: patient oriented x3 Extrem General: normal to inspection Results Labs 06/06/22 07:10 06/06/22 07:10 Labs: 06/06/22 07:10: Corrected WBC 7.6, Uncorrected WBC Count 7.6 06/06/22 07:10: BUN 7 L, Creatinine 0.64 Microbiology Results Microbiology Narrative: 06/05/22 16:15 Aerobic Culture - Preliminary Cerebral Spinal Fluid No Growth 1 Day Anaerobic Culture - Preliminary No Anaerobes Isolated 1 Day Gram Stain - Final 06/05/22 16:15 CSF (PCR) - Final Cerebral Spinal Fluid 06/04/22 12:05 Fungal Smear - Final Vaginal Trichomonas Wet Mount - Final Imaging and Cardiology Results Comments: 06/05/22 16:15 Aerobic Culture - Preliminary Cerebral Spinal Fluid No Growth 1 Day Anaerobic Culture - Preliminary No Anaerobes Isolated 1 Day Gram Stain - Final 06/05/22 16:15 CSF (PCR) - CSF PCR Panel Final 06/05/22-1835 Escherichia coli K1 Not Detected Haemophilus influenzae Not Detected Listeria monocytogenes Not Detected Neisseria meningitidis Not Detected S. agalactiae (Group B) Not Detected Streptococcus pneumoniae Not Detected Cytomegalovirus Not Detected Enterovirus Not Detected Herpes simplex virus 1 Not Detected Herpes simplex virus 2 Detected Human herpesvirus 6 Not Detected Human parechovirus Not Detected Varicella zoster virus Not Detected C. neoformans/gattii Not Detected Cerebral Spinal Fluid 06/04/22 12:05 Fungal Smear - Final Vaginal Trichomonas Wet Mount - Final Additional Results Additional Results Comment: MRI:IMPRESSION: ? There is T2 and T2 FLAIR hyperintense signal in the cortex and subcortical whitematter of the left frontal lobe in the expected location of the accessory motor cortex without corresponding diffusion restriction or abnormal postcontrast enhancement. ? There is T2 and FLAIR hyperintense signal in the pontine white matter slightly to the right of midline without accompanying diffusion restriction. There is subtle enhancement in this location on postcontrast T1-weighted imaging. ? This may be inflammatory/demyelinating in nature. The differential would includebut is not limited to multiple sclerosis, toxic encephalomyelitis, or or acute disseminated encephalomyelitis. ? A&P - Infectious Disease (1) Vulvar ulceration: Status: Acute (2) HSV-2 (herpes simplex virus 2) infection: Status: Acute Plan Patient is currently on Valtrex. Has clinical lesions in her genital area for which exam today was deferred consistent with HSV I am told. Also had positive HSV-2 PCR test from CSF with indices consistent with viral meningitis. Patient however did not present with any neuro symptoms such as headache photophobia or neck stiffness. She also did not have encephalitis symptoms as well. Given abnormal HSV 2 result agree with p.o. Valtrex to finish 10 days of therapy. Sheis currently on 1 g 3 times daily. Abnormal imaging on the MRI however noted some concern for inflammatory demyelinating lesions for which she is also being worked up for at this time. She remains on steroids. Documented By: Rayne Vitale MD 06/06/22 1007 Signed By: <Electronically signed by MD Rayne Vitale> 06/06/22 1025 [facility] Work Phone: [phone] 509-346101-16-2023 Progress note Author Melo Diana [facility] June 05, 2022 5:58pm Note Date/Time June 05, 2022 9 :00am [facility] [address] [place] [address] Hospitalist Progress Note Signed Patient: Heena Wang MR#: [id number] : 2005 Acct:[id number] Age/Sex: 17 / F Adm Date: 3 Loc: Room: [address] [place] [address] Type: ADM IN Attending Dr: Melo Diana MD Copies to: ~ Date of Service: 06/05/2022 Subjective Subjective Narrative: No acute changes overnight. Patient states that she slept well last night and has been able to eat. Patient denies fever, chills, fatigue, chest pain, shortness of breath, nausea, vomiting, abdominal pain. She states that she still has not had a bowel movement since being in hospital and that a stool softener was added to her regimen last night. Catheter still in place. 800 mL of clear, dark-yellow urine without hematuria in collection bag. Patient statesthat she still is having vaginal discomfort. The paresthesia has not worsened or changed location at this time. Patient continues to deny motor, ocular, or other neurological symptoms. There is reports that the patient has been experiencing some bladder discomfort today. The nurse gave her Tylenol as needed the discomfort seemed to go away. During rounds patient reports that she has had a lumbar puncture performed and is feeling okay. Patient is currently in contact precautions due to suspected herpes simplex virus infection. Exam Physical Exam Vital Signs: Temp Pulse Resp BP Pulse Ox O2 Del Method 98.2 F 86 16 106/67 100 Room Air 06/05/22 04:00 06/05/22 04:00 06/05/22 04:00 06/05/22 04:00 06/05/22 04:00 06/05/22 04:00 Narrative: CONSTITUTIONAL: Patient resting comfortably in supine position with lights off. Mother present during rounds. HEAD: Normocephalic, atraumatic EYES: EOMI, PERRL, normal conjunctiva, sclera white, no discharge NECK: No rashes, no lesions RESPIRATORY: No distress, lungs clear bilaterally, symmetric chest rise, no wheezes/rales/rhonchi, no coughing observed CARDIOVASCULAR: RRR, no murmurs, plus 2 out of 4 radial, dorsalis pedis, posterior tibial pulses bilaterally, no peripheral edema noted ABDOMEN: Soft, nontender, nondistended, normal bowel sounds x4 SKIN: No rashes, no lesions NEURO: Cranial nerves grossly intact, no focal neurologic signs, normal speech, plus 5 out of 5 lower extremity muscle tone, bilateral sensation distorted and lower extremity. PSYCHIATRIC: Appropriate mood and affect. Objective Lab Results 06/02/22 22:30 06/02/22 22:30 Microbiology Results Microbiology 06/04/22 12:05 Vaginal Fungal Smear - Final 06/04/22 12:05 Vaginal Trichomonas Wet Mount - Final Meds Allergies and Active Meds Allergies No Known Allergies Allergy (Verified 06/03/22 05:51) Active Meds: Active Medications Generic Name Dose Route Start Last Admin Trade Name Freq PRN Reason Stop Dose Admin Acetaminophen 650 mg 06/02/22 21:44 06/04/22 02:16 Acetaminophen 325 Mg Tablet PO 06/02/23 21:43 650 mg Q6HR PRN Administration Pain Scale 1 - 3 or fever Docusate Sodium 100 mg 06/04/22 21:00 06/04/22 21:16 Docusate 100 Mg Capsule PO 06/04/23 20:59 100 mg BID WILLIAM Administration Morphine Sulfate 2 mg 06/04/22 02:45 06/04/22 02:57 Morphine Sulfate 2 Mg/Ml Vial IV-PUSH 2 mg Q4H PRN Administration Pain Polyethylene Glycol 17 gm 06/04/22 19:45 06/04/22 21:16 Polyethylene Glycol 3350 17 Gm Powd.Pack PO 06/04/23 19:44 17 gm DAILY WILLIAM Administration Valacyclovir HCl 1,000 mg 06/04/22 14:45 06/04/22 21:16 Valacyclovir 500 Mg Tablet PO 1,000 mg BID IWLLIAM Administration A&P - Hospitalist Assessment/Plan (1) Paresthesia of both lower extremities: (2) Acute urinary retention: (3) Vulvar ulceration: (4) Vaginal discharge: (5) Primary vulvovaginal herpes simplex infection: Plan Assessment/Plan: Patient is a 17-year-old female with a history of severe thoracic and lumbar scoliosis who presents with bilateral lower extremity paresthesias, requiring Rodas catheter placement at outside ER due to complete inability to empty her bladder Bilateral Paresthesia of the Lower Extremities On hospital day number 1 the paresthesias had improved a great deal, having moved down from the region of her umbilicus down to her ankle and foot region.?Still remain improved. 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 Discussed with the patient and mother that these results take some time to process and the report may be in outpatient setting. -Patient received brain MRI with contrast results are as follows: -Cerebral parenchyma: There is T2 and T2 FLAIR hyperintense signal in the cortexand subcortical white matter of the left frontal lobe in the expected location of the accessory motor cortex without corresponding diffusion restriction or abnormal postcontrast enhancement. -Brainstem: There is T2 and FLAIR hyperintense signal in the pontine white matter slightly to the right of midline without accompanying diffusion restriction. There is subtle enhancement in this location on postcontrast T1-weighted imaging. -This may be inflammatory/demyelinating in nature. The differential would include but is not limited to multiple sclerosis, toxic encephalomyelitis, or oracute disseminated encephalomyelitis. Urinary Retention On hospital night #1 the Rodas catheter was removed.? But she was unable to void.? It took multiple nursing attempts to replace the Rodas catheter. -At this time Rodas catheter is still inserted. Dr. Zhang discussed taking the Rodas catheter home and then follow-up with urology in the office for urodynamics and further evaluation yesterday. -Etiology urinary tension unknown at this time. According to urology Clark syndrome versus urethral obstruction versus MS is on the differential. Herpes Vaginitis -Yesterday gynecology found evidence of herpes and the patient was placed on Valtrex. -Cultures for: Chlamydia, herpes simplex virus, Neisseria gonorrhea day, trichomonas vaginalis pending Attending Attestation: Patient was personally seen by me on the day of encounter. I reviewed her history and performed clemons elements of exam and formulated the plan of care and confirmed the medical student's note above. Documented By: Melo Diana MD 3 0842 Signed By: <Electronically signed by Melo Diana MD> 06/05/22 1756 [facility] Work Phone: [phone] 273-610001-16-2023 Progress note Author Kt Pearson [facility] June 05, 2022 5:19pm Note Date/Time June 05, 2022 9 :08am [facility] [address] [place] [address] Neurology Progress Note Signed Patient: Heena Wang MR#: [id number] : 2005 Acct:[id number] Age/Sex: 17 / F Adm Date: 3 Loc: Room: [address] [place] [address] Type: ADM IN Attending Dr: Melo Diana MD Copies to: ~ Date of Service: 06/05/2022 Subjective Subjective Narrative: Patient states the paresthesias again increased to include her lower extremitiesbilaterally and into her buttocks. She denies any saddle paresthesias. She denies any symptoms in her upper extremities. She denies pain. She still ambulating normally. Review of Systems Constitutional Constitutional: Denies chills and Denies fever(s) Eyes Eyes: Denies blurry vision and Denies diplopia Cardiovascular Cardiovascular: Denies chest pain and Denies palpitations Respiratory Respiratory: Denies dyspnea Gastrointestinal Gastrointestinal: Denies change in bowel habits, Denies nausea and Denies vomiting Genitourinary Comments: Has a Rodas catheter Musculoskeletal Musculoskeletal: Denies myalgias Neurologic Neurologic: Denies abnormal movements, Denies abnormal speech, Denies confusion,Denies localized weakness, Denies memory loss, Denies other visual disturbances,Reports paresthesias and Denies tremor(s) Exam Physical Exam Vital Signs: Temp Pulse Resp BP Pulse Ox O2 Del Method 98.2 F 86 16 106/67 100 Room Air 06/05/22 04:00 06/05/22 04:00 06/05/22 04:00 06/05/22 04:00 06/05/22 04:00 06/05/22 04:00 Narrative: GENERAL EXAM: * Constitutional - Patient appears well nourished and well groomed * Patient is alert and oriented x3. * Apical is regular rate and rhythm. No murmur was appreciated. No edema noted. Pulses are normal * Lung sounds are clear to auscultation * Abdomen is soft with normal bowel sounds * Neck is supple without carotid bruit * Ophthalmoscopic exam deferred. No injection or drainage noted. NEURO EXAM: * Attention span/concentration normal * Speech is clear and fluent * Cranial nerve II. Vision is intact. PAWAN * Cranial nerve III, IV and . Extraocular muscles are intact. No nystagmus is appreciated * Cranial nerve V and VII. No facial asymmetry is appreciated. Temperature and pinprick is equal bilaterally * Cranial nerve VIII hearing is intact * Cranial nerve IX and X speech is clear fluent. Palate elevates symmetrically * Cranial nerve XI head turn side to side full range of motion. Shoulder shrug is equal bilaterally * Cranial nerve XII tongue is midline full range of motion MOTOR EXAM: * Strength is 5/5 throughout. No pronator drift was appreciated * Muscle tone and bulk are normal * Gait not assessed SENSORY EXAM: * Temperature, pinprick, vibration are intact in all 4 extremities and symmetric * Patient reports increased tingling sensation to light touch but sensory appears to be equal * No thoracic level noted with pinprick CEREBELLAR EXAM: * Fdaxiv-[id number] and alternating movements are intact and normal in bilateral upper extremities * Oyuy-hi-pbrm and alternating movements are intact and normal in lower extremi ties REFLEX EXAM: * 2/4 throughout Objective Vital Signs Vital Signs: Vital Signs - 24 hr 06/04/22 12:00 06/04/22 15:36 06/04/22 16:00 Temperature 97.6 F Pulse Rate 80 100 H Respiratory Rate 16 14 Blood Pressure 122/76 115/75 02 Sat by Pulse Oximetry 98 95 Oxygen Delivery Method Room Air Room Air Room Air 06/04/22 20:00 06/04/22 20:00 06/05/22 00:20 Temperature 98.2 F 98.2 F Pulse Rate 101 H 102 H Respiratory Rate 14 14 Blood Pressure 110/62 106/67 02 Sat by Pulse Oximetry 99 99 Oxygen Delivery Method Room Air Room Air Room Air 06/05/22 04:00 Temperature 98.2 F Pulse Rate 86 Respiratory Rate 16 Blood Pressure 106/67 02 Sat by Pulse Oximetry 100 Oxygen Delivery Method Room Air Labs 06/02/22 22:30 06/02/22 22:30 Assessment/Plan (1) Acute urinary retention: Code(s): R33.8 - Other retention of urine Status: Acute (2) Paresthesia of both lower extremities: Code(s): R20.2 - Paresthesia of skin Status: Acute Plan 17-year-old woman with history of scoliosis.? To the emergency room after not being able to urinate for 8+ hours she went to get checked out at [facility].? She was also experiencing tingling paresthesias that were initially from about the level of her umbilicus downward, encompassing the entirety of both legs which improved to only involve the feet, very symmetrically.? She has not exhibited any motor symptoms.? She is able to ambulate without difficulty and without imbalance.? No loss of coordination.? Despite the paresthesias, sensation seems intact to her throughout.? She also has good pudendal sensation.? She has a Rodas catheter in now and feels the discomfort and pressure of it.? While she was over at the other hospital they were able to get an MRI of her lumbar spine, both with and without contrast which per chart review was unremarkable other than her chronic scoliosis findings.?Her urinary retention and sensory symptoms that potentially correspond to a T10 sensory level raise concern for thoracic myelopathy.? In this particular patient my biggest concern would be central canal compromise and mild compressive myelopathy related to her significant scoliosis, especially in the thoracic area.? Because of her age and biological sex, demyelinating lesions (e.g. multiple sclerosis) is also a consideration.? MRI of the thoracic spine was completed and reviewed with Dr. Mae. There does appear to be some questionable finding at T2 with bilateral central increased signal changes. If this is demyelinating it is not acute as there is no enhancement. 1. MRI of her lumbar spine with and without contrast from June 02, 2022 report was reviewed and is unremarkable 2. MRI of the thoracic spine as above 3. 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 Lumbar puncture pending * Cell count * Glucose * Protein * Culture * PCR * Lyme * Oligoclonal band * Immunoglobulin G index * IgG protein synthesis 5. Hemoglobin A1c 5.2 6. LFTs normal 7. Sed rate 26, CRP 0.6 8. SUSIE pending 9. LIZZY pending 10. HERNESTO pending 11. B12 368, folate 16.6, TSH 0.85 12. HIV, C. trachomatis, HSV, and gonorrhea, and T vaginalis pending 13. We will follow Attestation Statement I agree with the above. Patient seen and examined. Careful examination of MRI imaging reveals nonenhancing T2 hyperintensity predominantly of the valadez matter of multiple levels of the lower portion of the thoracic cervical spinal cord, a small enhancing white matter lesion in the right side of the kerwin, and a nonenhancing subcortical T2 hyperintense lesion inthe left frontal lobe. The thoracic spinal cord abnormality is the only thing that could explain the symptoms she presented with (sensory paresthesias from the T10 dermatome downward as well as new onset urinary retention and constipation) - though those symptoms are acute, oddly there is no contrast-enhancement in that area. The pontine lesion and the subcortical frontal lesionare seemingly without symptomatic correlate. Etiology is unclear. Technically she meets diagnostic criteria for multiple sclerosis (dissemination in space and dissemination in time of lesions), though I want to consider some other potential causes prior to officially diagnosing that. Acute disseminated encephalomyelitis (ADEM) remains a consideration. Thethoracic hyperintensity is longitudinally extensive and neuromyelitis optica andanti-MOG syndromes will be considered. She currently has no symptoms concerningfor optic neuritis and no history of prior optic neuritis. There is a strong family position for autoimmune disease and we are taking that into considerationas well. While waiting for diagnostic studies to return, in the presence of an enhancing white matter lesion (the kerwin) we will start methylprednisolone 1000 mg IV dailyfor 3 to 5 days. Documented By: Kt Pearson DO 06/05/22 0901 Signed By: <Electronically signed by Kt Pearson DO> 06/05/22 1719 <Electronically signed by RHIANNON Avery> 06/05/22 1044 [facility] Work Phone: [phone] 150-262801-16-2023 [facility] Progress note Author Ravi Zhang [facility] June 04, 2022 6:44pm Note Date/Time June 04, 2022 1 0:01am [facility] [address] [place] [address] Hospitalist Progress Note Signed Patient: Heena Wang MR#: [id number] : 2005 Acct:[id number] Age/Sex: 17 / F Adm Date: 3 Loc: Room: [address] [place] [address] Type: ADM IN Attending Dr: Ravi Zhang DO Copies to: ~ Date of Service: 06/04/2022 Subjective Subjective Narrative: Patient reports that they tried to take out the Rodas yesterday. She reports that her belly started hurting and she knew that they would have to put the Rodas back in. Patient reports that they initially scanned approximately 900 mLin the bladder. It is unclear exactly how full the bladder was. She reports immediate relief after the catheter was replaced. Patient reports that the sensation in her legs bilaterally has just diminished from yesterday. She states that yesterday it was mostly in her feet, but now it is to her thighs traveling down to her feet. She reports that the sensation is not as superior as when she came in. It does not go up to her umbilicus as previously noted. She describes the sensation as tingling and as if her legs are asleep. She continues to deny motor deficits. She denies any upper extremity involvement. She denies nausea, vomiting, chest pain, shortness of breath, abdominal pain. She states she is constipated and has not had a bowel movement since coming to the hospital. She does describe some vaginal discomfort due to her yeast infection which is being treated. Mother not in the room today during examination. Denied family history of neurological conditions or recent illnesses including upper respiratory tract infections. Exam Physical Exam Vital Signs: Temp Pulse Resp BP Pulse Ox O2 Del Method 97.6 F 83 14 117/69 98 Room Air 06/04/22 07:54 06/04/22 07:54 06/04/22 07:54 06/04/22 07:54 06/04/22 07:54 06/04/22 08:00 Narrative: CONSTITUTIONAL: Patient appears to be sleeping this morning semirecumbent position. HEAD: Normocephalic, atraumatic EYES: Normal conjunctiva, no discharge PERRL. NECK: No rashes, no lesions RESPIRATORY: No distress, lungs clear bilaterally, symmetric chest rise, no wheezes/rales/rhonchi, no coughing. CARDIOVASCULAR: RRR, no murmurs, pulse 2 out of 4 radial, dorsalis pedis, posterior tibial pulses bilaterally ABDOMEN: Soft, nontender, nondistended, decreased bowel sounds x4 BACK: No paraspinal tenderness, thoracic dextro scoliosis and levo lumbar scoliosis noted SKIN: No rashes, no lesions NEURO: Cranial nerves grossly intact, speech normal, decreased sensation in thighs, feet, toes. Patient was able to tell me that my hands felt cold and they were the same bilaterally. Upper extremity lower extremity muscle tone plus 5 out of 5 bilaterally. Patellar reflexes plus 2 out of 4 bilaterally. PSYCHIATRIC: Appropriate mood and affect Note: Radiology was in the room and ready to take her to CT during examination. Patient able to transfer from bed to chair without difficulty. She did not dizziness upon ambulation. Rodas catheter is in place with clear yellow urine. Objective Lab Results 06/02/22 22:30 06/02/22 22:30 Meds Allergies and Active Meds Allergies No Known Allergies Allergy (Verified 06/03/22 05:51) Active Meds: Active Medications Generic Name Dose Route Start Last Admin Trade Name Freq PRN Reason Stop Dose Admin Acetaminophen 650 mg 06/02/22 21:44 06/04/22 02:16 Acetaminophen 325 Mg Tablet PO 06/02/23 21:43 650 mg Q6HR PRN Administration Pain Scale 1 - 3 or fever Morphine Sulfate 2 mg 06/04/22 02:45 06/04/22 02:57 Morphine Sulfate 2 Mg/Ml Vial IV-PUSH 2 mg Q4H PRN Administration Pain A&P - Hospitalist Assessment/Plan (1) Paresthesia of both lower extremities: (2) Acute urinary retention: (3) Vulvar ulceration: (4) Vaginal discharge: (5) Primary vulvovaginal herpes simplex infection: Plan Plan Assessment: Patient is a 17-year-old female with a history of severe thoracic and lumbar scoliosis who presents with bilateral lower extremity paresthesias, requiring Rodas catheter placement at outside ER due to complete inability to empty her bladder. On hospital day number 1 the paresthesias had improved a great deal, having moved down from the region of her umbilicus down to her ankle and foot region. So on hospital night #1 the Rodas catheter was removed. But she was unable to void. It took multiple nursing attempts to replace the Rodas catheter. Today gynecology finds evidence of herpes and the patient was placed on Valtrex. Cultures for other pathogens were taken and are pending. At this time Rodas catheter be left in. She should take the Rodas catheter homeand then follow-up with urology in the office for urodynamics and further evaluation. We will continue Valtrex. The patient will get an MRI of the brain as directed by neurology. Documented By: Ravi Zhang DO [id number] Signed By: <Electronically signed by Ravi Zhang DO> 06/04/22 4429 [facility] Work Phone: [phone] Consult note Author Isaías Pan [facility] June 04, 2022 2:39pm Note Date/Time June 04, 2022 2 :19pm [facility] [address] [place] [address] [employer] Consult Note Signed Patient: Heena Wang MR#: [id number] : 2005 Acct:[id number] Age/Sex: 17 / F Adm Date: 3 Loc: Room: [address] [place] [address] Type: ADM IN Attending Dr: Ravi Zhang DO Copies to: WINNIE Thomas DO Richard A Visci, DO~ HPI Data of Consult Date of Consult: 06/04/2022 Requesting Physician: Ravi Zhang DO Primary Care Provider: Morro Hauser APRN HPI HPI: Heena is a 17-year-old female who I was asked to see regarding a vaginal discharge. Taking a history from her is a little bit confusing, however I was able to elicit that she began having some vaginal symptoms approximately 2 weeksago. She admits to a new partner within the last few months. She was seen at an urgent care last week and was diagnosed with yeast and told to use Monistat. When the cultures came back, she was told she had a bacterial infection and was given Flagyl. She took 1 dose and had some numbness and tingling and was unableto urinate. She went to the ER and was given a Rodas catheter. She had an extensive neurologic work-up including MRIs of the spine. From what I can tell, her neurologic work-up has been negative. On exam she has an obvious primary herpetic vulvar outbreak. Viral cultures were obtained and a speculum exam was done. GC, chlamydia and a wet prep were obtained. Review of Systems Review of Systems Review of systems: Heena admits to vulvar vaginal symptoms that started about 2 weeks ago. It is difficult to elicit exactly what happened. She admits that when she urinated she had significant burning of the vulva. When I asked if she had pain with urination she says no. She does admit to a thick white discharge that she thought was a yeast infection and did use Monistat that did not help. She has been unable to urinate despite a sensation of urgency and currently has a Rodas catheter. Her bowel movements have been unaffected. She has had no fevers or chills. She denies any lower abdominal pain but does admit to some paresthesiasthat started a few days ago. She has had no urinary or fecal incontinence. Shehas had no symptoms in the past that resemble this. [facility] Vaccinated for COVID-19?: Yes Medical History (Updated 06/04/22 @ 14:38 by Isaías Pan DO) Scoliosis Social History Marital Status: Single Smoking Status: Never smoker Substance Use Type: None Allergies & Medications Medications and Allergies Allergies No Known Allergies Allergy (Verified 06/03/22 05:51) Home Medications ibuprofen 100 mg tablet mg 06/02/22 [History] metronidazole 250 mg tablet mg 06/02/22 [History] Active Medications Acetaminophen (Acetaminophen 325 Mg Tablet) 650 mg PO Q6HR PRN PRN Reason: Pain Scale 1 - 3 or fever Stop: 06/02/23 21:43 Last Admin: 06/04/22 02:16 Dose: 650 mg Morphine Sulfate (Morphine Sulfate 2 Mg/Ml Vial) 2 mg IV-PUSH Q4H PRN PRN Reason: Pain Last Admin: 06/04/22 02:57 Dose: 2 mg Valacyclovir HCl (Valacyclovir 500 Mg Tablet) 1,000 mg PO BID [facility] [employer] - Exam Physical Exam Vital signs: Temp 97.6 F 06/04/22 07:54 Pulse 80 06/04/22 12:00 Resp 16 06/04/22 12:00 BP 122/76 06/04/22 12:00 Pulse Ox 98 06/04/22 12:00 O2 Del Method Room Air 06/04/22 12:00 Exam - Narrative: Heena is alert and oriented x3 and in no acute distress. Her abdomen is flat and nondistended and nontender. The external genitalia show unroofed blisters with a large cluster in the thigh fold on the right. She has isolated blisters that are smaller on both the right and left vulva. Viral cultures were obtained and these areas were tender. Speculum exam showed a thick white discharge. Cultures were obtained. Given her discomfort I did not do a bimanual exam. Her cervix did appear nulliparous and without gross lesions. There was no obvious cervicitis. There were no palpable inguinal lymph nodes. Lower extremities showed no edema. [employer] - Results Laboratory Results - Last 48 hrs. 06/02/22 22:30: Estimat Average Glucose 103, Hemoglobin A1c 5.2 06/02/22 22:30: PHA Creatinine Clear 140.50, Sodium 136, Potassium 3.5, Chloride 102, Carbon Dioxide 23.8, Anion Gap 13.7, BUN 7 L, Creatinine 0.79, Est GFR ( Amer) > 60, Est GFR (Non-Af Amer) > 60, Glucose 106 H, Calcium 8.5, Phosphorus 3.8, Magnesium 2.1, Total Bilirubin 0.9, Direct Bilirubin 0.2, Indirect Bilirubin 0.7, AST 31, ALT 26, Alkaline Phosphatase 60, C-Reactive Prot, Quant 0.6, Total Protein 7.2, Albumin 3.5, Globulin 3.7, Albumin/Globulin Ratio 0.9, Vitamin B12 368, Folate 16.6, Total T4 9.70, Free T4 0.96, TSH 3rd Generation 0.85 06/02/22 22:30: PT 13.8 H, INR 1.2, APTT 31.4 06/02/22 22:30: Corrected WBC 6.9, Uncorrected WBC Count 6.9, RBC 4.54, Hgb 13.3, Hct 40.4, MCV 89.1, MCH 29.4, MCHC 33.0, RDW 13.6, Plt Count 242, MPV 9.5, Neut % (Auto) 45.7, Lymph % (Auto) 42.0, Cascade % (Auto) 9.4, Eos % (Auto) 0.9, Baso % (Auto) 2.0, Nucleat RBC Rel Count 0.3, Neut # (Auto) 3.1, Lymph # (Auto) 2.9, Cascade # (Auto) 0.6, Eos # (Auto) 0.1, Baso # (Auto) 0.1, ESR 26 H Microbiology - Results from entire visit 06/04/22 12:05 Vaginal Fungal Smear - Final 06/04/22 12:05 Vaginal Trichomonas Wet Mount - Final [employer] - A/P (1) Acute urinary retention: Code(s): R33.8 - Other retention of urine Status: Acute (2) Primary vulvovaginal herpes simplex infection: Plan: Vulvar lesions have been cultured and GC, chlamydia and a wet prep were obtained. I have initiated Valtrex 1000 mg twice daily for the next 7 to 10 days. We discussed with Heena my suspicion that this is a primary genital herpes outbreak. We discussed genital herpes in general and also the severity of the first outbreak. We discussed how the frequency of future outbreaks is unpredictable at this point. We discussed possible treatment options for in the future. Cultures are currently pending. I have recommended that once things are healed a little more we can remove her Rodas cathete and she should be able to urinate spontaneously. I believe most of her paresthesias and urinary retention is in relation to the severity of this outbreak. Code(s): A60.04 - Herpesviral vulvovaginitis Status: Acute (3) Vulvar ulceration: Code(s): N76.6 - Ulceration of vulva Status: Acute (4) Vaginal discharge: Code(s): N89.8 - Other specified noninflammatory disorders of vagina Status: Acute Plan GC, chlamydia and a wet prep for trichomoniasis and yeast were obtained Documented By: Isaías Pan DO 06/04/22 1406 Signed By: <Electronically signed by Isaías Pan DO> 06/04/22 1439 [facility] Work Phone: [phone] Consult note Author Iman Gomez [facility] June 04, 2022 1:38pm Note Date/Time June 04, 2022 1 1:04am [facility] [address] [place] [address] Urology Consult Note Signed Patient: Heena Wang MR#: [id number] : 2005 Acct:[id number] Age/Sex: 17 / F Adm Date: 3 Loc: 3T Room: [address] [place] [address] Type: ADM IN Attending Dr: Ravi Zhang DO Copies to: WINNIE Thomas MD Kristopher L Lindbloom, DO~ History of Present Illness Consult Details Consult Date: 06/04/2022 Reason for Urology Consult: Urinary retention Requesting Provider: Ravi Zhang DO HPI: 17 year old healthy female transferred from outside hospital to [facility] on 06/02/2022 with acute urinary retention and bilateral lower extremity numbness/tingling from umbilicus to feet. Motor intact. Endorsedsevere headache and fatigue prior to presentation. Rodas was placed at outside hospital with 800 ml immediate output. Per report of outside hospital workup: UA was negative for infection. Outside MRI of the lumbar spine with contrast was unremarkable. Retroperitoneal ultrasound was normal. On 06/01/2022, completedFlagyl/ antifungal for bacterial vaginosis and yeast infection from urgent care.Still with discomfort. Does have heavy painful menstrual cycles but has not beendiagnosed with PCOS, no prior [employer] evaluation. Has appointment this week. Her paresthesias have improved since her stay. Neurology was consulted with concern for thoracic myelopathy given sensory symptoms corresponding to T10, possibly secondary to scoliosis. MRI thoracic spine is unremarkable per report, final Neurology evaluation of this still pending. Rodas was removed yesterday, pt unable to void and had bladder scan of 900 ml. Had urge to go but could not void. Rodas replaced with relief, very painful reinsertion secondary to vulvar swelling and sensitivity. Urology consulted for further evaluation. Still with numbness and tingling in her lower extremities upto her thighs. No motor deficits or upper extremity involvement. Denies issues of retention, urgency, frequency, UTIs or any urologic issues prior to presentation. Denies recent illnesses, history of viral illnesses, upper respiratory tract infections, or UTIs. No BM since presented to the outside hospital. No urologic issues as a child. No prior surgeries other than tonsils. History of chronic low back pain from scoliosis. Denies other medical history or contributory family history of neurological conditions except mother who had episode of Guillain-Zelaya? a couple weeks after an influenza vaccine years ago s/p IVIG. Had paresthesia up to her neck. She was able to urinate during these events. Non-smoker. Denies use of illicit drugs. Review of Systems Review of Systems Review of systems: General: denies fever, chills, wt loss Skin: denies rash or jaundice HEENT: denies epistaxis or oral lesion Neurological: denies weakness + sensory change Respiratory: denies dyspnea or shortness of breath Cardiac: denies chest pain or palpitations Gastrointestinal: denies nausea, emesis, diarrhea Urinary: See HPI Musculoskeletal: denies muscle or back pain Psychiatric: denies mood or affect disorder Hematologic: denies easy bleeding or bruising PMFSH Vaccinated for COVID-19?: Yes Social History Smoking Status: Never smoker Substance Use Type: None Meds Medications and Allergies Allergies No Known Allergies Allergy (Verified 06/03/22 05:51) Home Medications ibuprofen 100 mg tablet mg 06/02/22 [History] metronidazole 250 mg tablet mg 06/02/22 [History] Exam Physical Exam Vital Signs: Temp Pulse Resp BP Pulse Ox O2 Del Method 97.6 F 83 14 117/69 98 Room Air 06/04/22 07:54 06/04/22 07:54 06/04/22 07:54 06/04/22 07:54 06/04/22 07:54 06/04/22 08:00 Narrative: General: The patient appears nontoxic. Does not appear ill. Skin: Warm, dry. No gross lesions are identified. HEENT: Normocephalic, atraumatic. Pupils equal, round, and reactive to light and accommodation. Oral mucosa moist. Respiratory: No increased respiratory effort. On room air Cardiac: Regular rate and rhythm. no peripheral edema GI: Abdomen is soft, nontender, nondistended : The bladder is nonpalpable. There is no CVA tenderness bilaterally. Rodas to gravity with concentrated light keely urine. Musculoskeletal: Moves all extremities, normal strength Neurologic: Awake, alert, oriented. Altered sensation in the lower extremities up to thighs Psychiatric: Affect normal to clinical condition Results Labs 06/02/22 22:30 06/02/22 22:30 Labs: Laboratory Results - Last 48 hrs. 06/02/22 22:: Estimat Average Glucose 103, Hemoglobin A1c 5.2 06/02/22 22:: PHA Creatinine Clear 140.50, Sodium 136, Potassium 3.5, Chloride 102, Carbon Dioxide 23.8, Anion Gap 13.7, BUN 7 L, Creatinine 0.79, Est GFR ( Amer) > 60, Est GFR (Non-Af Amer) > 60, Glucose 106 H, Calcium 8.5, Phosphorus 3.8, Magnesium 2.1, Total Bilirubin 0.9, Direct Bilirubin 0.2, Indirect Bilirubin 0.7, AST 31, ALT 26, Alkaline Phosphatase 60, C-Reactive Prot, Quant 0.6, Total Protein 7.2, Albumin 3.5, Globulin 3.7, Albumin/Globulin Ratio 0.9, Vitamin B12 368, Folate 16.6, Total T4 9.70, Free T4 0.96, TSH 3rd Generation 0.85 06/02/22 22:30: PT 13.8 H, INR 1.2, APTT 31.4 06/02/22 22:30: Corrected WBC 6.9, Uncorrected WBC Count 6.9, RBC 4.54, Hgb 13.3, Hct 40.4, MCV 89.1, MCH 29.4, MCHC 33.0, RDW 13.6, Plt Count 242, MPV 9.5, Neut % (Auto) 45.7, Lymph % (Auto) 42.0, Cascade % (Auto) 9.4, Eos % (Auto) 0.9, Baso % (Auto) 2.0, Nucleat RBC Rel Count 0.3, Neut # (Auto) 3.1, Lymph # (Auto) 2.9, Cascade # (Auto) 0.6, Eos # (Auto) 0.1, Baso # (Auto) 0.1, ESR [address] scan - abdomen: report reviewed and image reviewed CT scan - pelvis: report reviewed and image reviewed Additional studies: CT abdomen and pelvis withcontrast TECHNIQUE: Axial imaging with 2-D reconstruction.90 cc of Isovue-300.? The CT exam was performed using one or more the following dose reduction techniques: Automated exposure control, adjustment of the MA and/or Kv according to patient size, or use of the iterative reconstruction technique. COMPARISON:None History: Urinary retention.? Vaginal discharge.? Lower extremity weakness. Lung bases are unremarkable. No hepatic mass or intrahepatic biliary ductal dilatation identified.? Normal density of the liver parenchyma identified. No gallbladder abnormality identified. No extrahepatic biliary ductal dilatation identified. There is no splenomegaly or splenic mass identified. No pancreatic mass or ductal dilatation identified. The adrenal glands are unremarkable. No nephrolithiasis or obstructive uropathy is identified.? No abdominal aortic aneurysm identified. No significant retroperitoneal abnormalities identified. The small bowel loops are nondistended.? The appendix is normal.? There is no colonic wall thickening, distention or pericolonic inflammatory changes.? A moderate amount of stool. Rodas catheter in the moderately distended urinary bladder.? Air in urinary bladder likely related to catheterization.? Reproductive structures are unremarkable.? No free intraperitoneal air or fluid is identified. Scoliosis.? Patent bony central canal.? No acute bony findings. ?No subcutaneous soft tissue abnormality identified. CT/CT abdomen pelvis w con IMPRESSION: No acute findings.? A moderate burden of stool in the colon.? Adequate position of Rodas catheter with moderate urinary bladder distention. ? Impression dictated by: Jamie Wheatley M.D.06/04/2022 12:51 PM Assessment/Plan (1) Acute urinary retention: Code(s): R33.8 - Other retention of urine (2) Paresthesia of both lower extremities: Code(s): R20.2 - Paresthesia of skin Plan 17-year-old healthy female with new onset lower extremity paresthesias and acute urinary retention of 700- 800 cc, failed voiding trial. Paresthesias improving. Neurologic evaluation negative. Patient was down with [employer] getting examined due to swollen and painful vagina. When she returned she was told they think she has herpes and will be started on medication. Vaginal pathology could lead to acute retention. -Due to recent failed voiding trial, recommend continued Rodas catheterization for decompression until acute flare resolves. Would be too painful to CIC at this time. -Bowel regimen due to constipation. Per patient and mom this is new onset. -If retention continues after acute flare has resolved will need cystoscopy and urodynamics for further evaluation. Discussed possibility for Clark's syndrome vs urethral obstruction vs MS (less likely) -Patient scheduled to follow-up with gynecology due to painful heavy menstruation. Discussed how PCOS is common in patients with Clark's syndrome -Follow-up in 1 to 2 weeks for Rodas removal and voiding trial once acute vaginal flare has resolved Documented By: Iman Gomez MD 06/04/22 1101 Signed By: <Electronically signed by Iman Gomez MD> 06/04/22 2093 [facility] Work Phone: [phone]) 234-601201-15-2023 Progress note Author Kt Pearson [facility] June 04, 2022 11:43am Note Date/Time June 04, 2022 1 1:43am [facility] [address] [place] [address] Neurology Progress Note Signed Patient: Heena Wang MR#: [id number] : 2005 Acct:[id number] Age/Sex: 17 / F Adm Date: 3 Loc: Room: [address] [place] [address] Type: ADM IN Attending Dr: Ravi Zhang DO Copies to: ~ Date of Service: 06/04/2022 Exam Physical Exam Vital Signs: Temp Pulse Resp BP Pulse Ox O2 Del Method 97.6 F 83 14 117/69 98 Room Air 06/04/22 07:54 06/04/22 07:54 06/04/22 07:54 06/04/22 07:54 06/04/22 07:54 06/04/22 08:00 Objective Vital Signs Vital Signs: Vital Signs - 24 hr 06/03/22 11:36 06/03/22 15:20 06/03/22 15:26 Temperature 97.8 F 98.0 F Pulse Rate 90 80 Respiratory Rate 14 16 Blood Pressure 124/77 116/77 02 Sat by Pulse Oximetry 99 98 Oxygen Delivery Method Room Air Room Air Room Air 06/03/22 20:00 06/03/22 20:00 06/04/22 00:50 Temperature 98.0 F 98.0 F Pulse Rate 81 94 H Respiratory Rate 16 16 Blood Pressure 124/82 125/81 02 Sat by Pulse Oximetry 98 97 Oxygen Delivery Method Room Air Room Air Room Air 06/04/22 03:31 06/04/22 03:50 06/04/22 05:34 Temperature 97.6 F 97.6 F Pulse Rate 81 81 Respiratory Rate 16 16 Blood Pressure 128/85 128/85 02 Sat by Pulse Oximetry 95 95 Oxygen Delivery Method Room Air Room Air Room Air 06/04/22 07:54 06/04/22 08:00 Temperature 97.6 F Pulse Rate 83 Respiratory Rate 14 Blood Pressure 117/69 02 Sat by Pulse Oximetry 98 Oxygen Delivery Method Room Air Room Air Labs 06/02/22 22:30 06/02/22 22:30 Assessment/Plan (1) Acute urinary retention: Assessment/Problem Details: CONSULT REASON: Paresthesias SUBJECTIVE: They removed the catheter last night and she was getting the urge to urinate andwent to the bathroom to try to go several times but could not do it. She also could not defecate but thinks that was more of an anxiety sort of problem. The catheter had to be put back in for urinary retention again. She still has the paresthesias involving the feet. She has not noticed anything higher up. Legs are still working okay. She is ambulatory without issue. No new symptoms in arms. No double vision or vision changes. EXAMINATION: Well-kempt.? No distress.? No deformities or trauma.? Fullness of right posterior thoracic area consistent with her scoliosis. Limbs seem well-perfused.? No significant edema.? Normal work of breathing.? Visualized skin is generally intact and without lesions.? Affect normal.? Patient is alert and generally oriented.? Attention normal.? Speech is fluent and nondysarthric.? Pupils are equal and reactive.? Visual seals full.? No color desaturation.? Ocular motility is full.? No nystagmus.? Facial sensation is normal.? Hearing isnormal.? Facial strength is normal.? Muscle bulk, tone, and strength are normal.? No tremors.? Reflexes mildly hyperactive throughout.? No pathologic reflexes.? No sustained ankle clonus.? Light touch is normal.? Vibratory sensation is normal.? Pinprick sensation is normal throughout and there is no sensory level detected.? No bradykinesia.? No limb dysmetria or ataxia in any limb. 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 ASSESSMENT: 17-year-old woman with history of significant scoliosis. Her urinary retention and sensory symptoms could have both potentially localizedto a spinal cord issue (T10 given her initial sensory symptom distribution) but it seems the thoracic spinal cord is unremarkable. And on her lumbar spine pictures her spinal cord terminus and nerve roots were noted to be unremarkable. Given the symmetric distribution of her symptoms, intracranial lesions seem unlikely unless they involved very specific paramedian lesioning of the brainstem. The distribution of her symptoms is similar to what would be expected in a length dependent polyneuropathy but the sudden onset there was much more widespread and then retracted is not consistent with neuropathy. PLAN: In an effort to more fully rule out any sort of demyelinating process, I have ordered MRI of the brain with and without contrast. I will also check some additional lab work (LIZZY, HERNESTO antibodies, SUSIE). I am hoping to fully review herneuroimaging with Dr. Mae. Code(s): R33.8 - Other retention of urine Status: Acute (2) Paresthesia of both lower extremities: Code(s): R20.2 - Paresthesia of skin Status: Acute Documented By: Kt Pearson DO 06/04/22 113 Signed By: <Electronically signed by Kt Pearson DO> 06/04/22 1143 [facility] Work Phone: [phone]) 468-204801-14-2023 Progress note Author Ravi Zhang [facility] June 03, 2022 6:07pm Note Date/Time June 03, 2022 6 :07pm [facility] [address] [place] [address] Hospitalist Progress Note Signed Patient: Heena Wang MR#: [id number] : 2005 Acct:[id number] Age/Sex: 17 / F Adm Date: 3 Loc: 3T Room: [address] [place] [address] Type: ADM IN Attending Dr: Ravi Zhang DO Copies to: ~ Date of Service: 06/03/2022 Subjective Subjective Narrative: Today the patient's paresthesias have migrated downward a tremendous amount. They are no longer up around her umbilicus. They have gone down to her lower legs just above the ankles and to continue to extend down to the toes. She is able to walk. She has good strength in both legs. She has not had a bowel movement yet. Rodas catheter remains in place. No fevers or chills. No headache. No other abnormal sensorium. No cough. No expectorate sputum. No abdominal pain. Eating well. She is accompanied by her mother. Her mother has worked in healthcare. Her mother describes how she wants had what sounds like a rather severe episode of Guillain-Zelaya? a couple weeks after an influenza vaccine. It sounds like her level of paresthesia went all the way up to the neck. She was treated with IVIG. So certainly the patient and her mother are very familiar with concepts from this type of issue. I described to the patient and her mother that the MRI finding on her back came back good. No obvious areas of spinal cord inflammation. This will be evaluated visually by the neurologist Dr. Pearson as well. So I recommended that Rodas catheter be removed tonight. She should ambulate around the room and drink fluids and I anticipate if there is no further neurologic issue then she should be able to have normal micturition and voiding of bowel movements. Exam Physical Exam Vital Signs: Temp Pulse Resp BP Pulse Ox O2 Del Method 98.0 F 80 16 116/77 98 Room Air 06/03/22 15:20 06/03/22 15:20 06/03/22 15:20 06/03/22 15:20 06/03/22 15:20 06/03/22 15:26 Narrative: GEN: Awake, alert, oriented x 3. Lungs: Clear to auscultation bilaterally, no wheezing, no crackles. Heart: Regular rate and rhythm, no murmurs, rubs, or gallops. Abdomen: Soft, normal bowel sounds, no rigidity, guarding, or acute peritoneal signs. Extremities: No swelling or cords in the calves bilaterally, no edema in the ankles bilaterally. Skin: No systemic rashes or lesions. Psychiatric: Calm. Conversant. Cooperative. Neuro: Normal strength throughout the lower extremities bilaterally. Is able todorsiflex plantarflex both feet and lift and extend both feet and bend and flex at the knees and has normal ankle motion as well. Objective Lab Results 06/02/22 22:30 06/02/22 22:30 Meds Allergies and Active Meds Allergies No Known Allergies Allergy (Verified 06/03/22 05:51) Active Meds: Active Medications Generic Name Dose Route Start Last Admin Trade Name Freq PRN Reason Stop Dose Admin Acetaminophen 650 mg 06/02/22 21:44 Acetaminophen 325 Mg Tablet PO 06/02/23 21:43 Q6HR PRN Pain Scale 1 - 3 or fever A&P - Hospitalist Assessment/Plan (1) Paresthesia of both lower extremities: (2) Metronidazole adverse reaction: (3) Acute urinary retention: Plan Assessment: Severe paresthesias, of the bottom half of the body, requiring Rodas catheter placement at outside hospital ER due to complete inability to empty the bladder. Plan: With improvement of her symptoms we will remove Rodas catheter and see if she can void successfully. Await further neurologic input. Documented By: Ravi Zhang DO 1803 Signed By: <Electronically signed by Ravi Zhang DO> 06/03/22 180 [facility] Work Phone: 1(523) 111-865101-14-2023 Consult note Author Kt Pearson [facility] June 03, 2022 12:02pm Note Date/Time June 03, 2022 1 0:02am [facility] [address] [place] [address] Neurology Consult Note Signed Patient: Heena Wang MR#: [id number] : 2005 Acct:[id number] Age/Sex: 17 / F Adm Date: 3 Loc: 3T Room: [address] [place] [address] Type: ADM IN Attending Dr: Ravi Zhang DO Copies to: DO Morro Lopez APRN Kristopher L Lindbloom, DO~ HPI Consult Date: 06/03/22 Client Service Professional: Kt Pearson, PMFSH Vaccinated for COVID-19?: Yes Social History Smoking Status: Never smoker Substance Use Type: None Meds Medications and Allergies Allergies No Known Allergies Allergy (Verified 06/03/22 05:51) Home Medications ibuprofen 100 mg tablet mg 06/02/22 [History] metronidazole 250 mg tablet mg 06/02/22 [History] Exam Physical Exam Vital Signs: Temp Pulse Resp BP Pulse Ox O2 Del Method 97.8 F 78 14 117/73 97 Room Air 06/03/22 07:41 06/03/22 07:41 06/03/22 07:41 06/03/22 07:41 06/03/22 07:41 06/03/22 08:00 Results Laboratory Findings 06/02/22 22:30 06/02/22 22:30 Lab Results: ESR 26 mm/hr (0-19) H 06/02/22 22:30 Hemoglobin A1c 5.2 % (4.3-5.6) 06/02/22 22:30 Assessment/Plan (1) Acute urinary retention: Assessment/Problem Details: CONSULT REASON: Paresthesias SUBJECTIVE/HPI: 17-year-old woman with history of scoliosis. Works at [employer]. After not being able to urinate for 8+ hours she went to get checked out at [facility]. She was also experiencing tingling paresthesias that were initially from about the level of her bellybutton downward, encompassing the entirety of both legs. As of this morning those paresthesias are limited to only the feet, very symmetrically. She has not exhibited any motor symptoms. She is able to ambulate without difficulty and without imbalance. No loss of coordination. Despite the paresthesias, sensation seems intact to her throughout. She also has good pudendal sensation. She has a Rodas catheter in now and feels the discomfort and pressure of it. While she was over at the other hospital they were able to get an MRI of her lumbar spine, both with and without contrast. They talked about wanting to do the thoracic spine after the MRI of her lumbar spine came back relatively unremarkable, but because they had already given her gadolinium contrast they could not do it again for 24 hours. She has not noticed any new symptoms in her arms. No vision changes. No significant headaches. No tremulousness. EXAMINATION: Well-kempt. No distress. No deformities or trauma. Fullness of right posterior thoracic area consistent with her scoliosis. Limbs seem well-perfused. No significant edema. Normal work of breathing. Visualized skin is generally intact and without lesions. Affect normal. Patient is alert and generally oriented. Attention normal. Speech is fluent and nondysarthric. Pupils are equal and reactive. Visual seals full. No color desaturation. Ocular motility is full. No nystagmus. Facial sensation is normal. Hearing is normal. Facial strength is normal. Muscle bulk, tone, and strength are normal. No tremors. Reflexes mildly hyperactive throughout. No pathologic reflexes. No sustained ankle clonus. Light touch is normal. Vibratory sensation is normal. Pinprick sensation is normal throughout and there is no sensory level detected. No bradykinesia. No limb dysmetria or ataxia in any limb. 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 In this particular patient my biggest concern would be central canal compromise and mild compressive myelopathy related to her significant scoliosis, especially in the thoracic area. Because of her age and biological sex, demyelinating lesions (e.g. multiple sclerosis) is also a consideration. I find it reassuring that objectively she has no strength, sensory, or coordination deficits in her lower extremities - only subjective paresthesias and those seem to be receding/resolving. If the thoracic cord checks out okay then perhaps the urinary retention instead has a gynecological/urological cause. PLAN: MRI thoracic spine with and without contrast. If there is any sort of compressive abnormality she will have to be fairly urgently evaluated by a spinal surgeon. If there is any intrinsic cord abnormality we will end up MR imaging her brain and cervical cord and we will also plan on a lumbar puncture for CSF analysis. Further recommendations to follow. Code(s): R33.8 - Other retention of urine Status: Acute (2) Paresthesia of both lower extremities: Code(s): R20.2 - Paresthesia of skin Status: Acute Documented By: Kt Pearson DO 06/03/22 0956 Signed By: <Electronically signed by Kt Pearson DO> 06/03/22 1207 [facility] Work Phone: 1(241) 652-952201-13-2023 History and physical note Author Ravi Zhang [facility] June 02, 2022 9:44pm Note Date/Time June 02, 2022 9 :44pm [facility] [address] [place] [address] Hospitalist H&P Signed Patient: Heena Wang MR#: [id number] : 2005 Acct:[id number] Age/Sex: 17 / F Adm Date: 3 Loc: Room: [address] [place] [address] Type: ADM IN Attending Dr: Ravi Zhang DO Copies to: WINNIE Thomas DO~ HPI DATE OF EXAMINATION: 06/02/22 CHIEF COMPLAINT: Paresthesias below the umbilicus to her feet, unable to void urine. HISTORY OF PRESENT ILLNESS: This is a 17-year-old woman who went to an outside hospital ER with urinary retention. She was found have acute urinary retention and could not void at all. Since she had not voided in 8 hours she decided to take herself to the emergency room this morning. She also noticed bilateral lower extremity paresthesias. In the outside ER a Rodas catheter was drained with immediate release of 800 mL urine and then a grand total of 1400 mL of urine after little while. Patient recently has been treated with Flagyl for bacterial vaginosis. She says that her last dose was yesterday () so its been about 24 hours ago. Two days before that she had a pounding headache like a migraine and fatigue and slept a lot in bed. She says that she read about flagellin if therewas any numbness or tingling that it should be stopped. The outside hospital emergency room did perform an MRI of the lumbar spine with gadolinium that was unremarkable. The urine was not suggestive of urinary tract infection. The outside ER described doing a retroperitoneal ultrasound that came back normal. She does require an additional MRI of the thoracic spine. The patient believes that her MRI was done at about 2 PM earlier today on 02 June 2022. She says that she was recently treated for a vaginal bacterial and yeast infection she describes taking 1 dose of an antifungal medicine and then taking Flagyl. She cannot really assess those symptoms now whether they are better or not. She describes tingling sensation starting right about the level of the umbilicus and going all the way down both extremities. Its not worse on one extremity or the other. She is numb in the gluteal regions. She gets some chronic low back pain because of my scoliosis. She can move her feet and knees and ankles and she has sensation throughout the legs. She denies any recent illness other than the vaginitis. No recent viral syndromes over the last couple weeks or months. No new medications. No falls or any injuries. Nonight sweats. No arthralgias or myalgias. No abdominal pain. She has not had any bowel movements in the last day. No chest pain or palpitations. No cough or expectorate sputum. No sores or any problems in her mouth. No difficulty with sensation or movement in her upper extremities and no headaches other than the severe episode 3 nights ago. Past medical history: None. Past surgical history: None. Past social history: Never smoker. No illicit drug use. No alcohol use. Family history: She states that mom and dad do not have any major health issues that might run in a inheritable pattern in the family. Review of Systems Review of Systems Review of systems: 10 systems are reviewed and are negative except as mentioned elsewhere in the documentation. [facility] Attestation Statement: The following information was validated with the patient. Meds Medications and Allergies Home Medications ibuprofen 100 mg tablet mg 06/02/22 [History] metronidazole 250 mg tablet mg 06/02/22 [History] Exam Physical Exam Vital Signs: Temp Resp Pulse Ox O2 Del Method 98.1 F 18 98 Room Air 06/02/22 21:21 06/02/22 21:21 06/02/22 21:21 06/02/22 21:21 Narrative: GEN: Awake, alert, oriented x 3. Head: Normal Cephalic, Atraumatic. Eyes: Conjunctiva and sclera clear bilaterally. Nose: External nose and nares normal bilaterally. Mouth: Lips and tongue normal. Neck: No JVD. No thyromegaly. No lymphadenopathy. Lungs: Clear to auscultation bilaterally, no wheezing, no crackles. Heart: Regular rate and rhythm, no murmurs, rubs, or gallops. Abdomen: Soft, normal bowel sounds, no rigidity, guarding, or acute peritoneal signs. Extremities: No swelling or cords in the calves bilaterally, no edema in the ankles bilaterally. Skin: No systemic rashes or lesions. Psychiatric: Calm. Conversant. Cooperative. Neuro: Upper extremities are normal. She has normal movement and sensation throughout, and equal bilaterally. Lower extremities: She describes [id number] type paresthesias all the way from the umbilicus region down to the toes. She has sensation intact. She can tell the difference between my hand and the middle of surgical matt. She moves both lower extremities equally. She can resist my strength 5 out of 5 on both lower extremities. It is difficult for me to assess deep tendon reflexes but I believe they are normal in the knees bilaterally Genitourinary: Rodas catheter drains plenty of clear yellow urine without any evidence of purulence or blood. Results Additional comments Additional comments: Papers sent over from the outside hospital emergency room are reviewed: Urine drug screen is negative for the tested substances. Urinalysis is negative. Urine is negative for . His metabolic profile is normal. Potassium 3.9, creatinine 0.83. Calcium 8.8. CBC is normal. White blood cell 7.5, hemoglobin 14.2, platelet started 52. Differential was normal. She is negative for flu A, flu B RSV and COVID by PCR. Renal ultrasound was normal. MRI of the lumbar spine with and without contrast showed left convex lumbar scoliosis. No acute disc herniation or spinal stenosis. A&P - Hospitalist Assessment/Plan (1) Paresthesia of both lower extremities: (2) Metronidazole adverse reaction: (3) Acute urinary retention: Plan Assessment: This is a 17-year-old female who presented with sudden onset of complete urinary retention that was relieved emergency room with placement of a Rodas catheter. She has paresthesias extending around the middle of the abdomen in the umbilicus region at proceeding downward to both lower extremities. She recently has been on metronidazole. She denies any other acute or recent illnesses or injuries. Concern is certainly present for transverse myelitis of the thoracic spine. She did get an MRI of the lumbar spine with gadolinium at the outside hospital. Plan: Check some additional labs including thyroid studies and coagulation studies. Consult to neurology. MRI of the thoracic spine with gadolinium. Further plan depending on the results of the MRI and neurologic input. 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 Medical History Urinary retention Medical History Paresthesia of both lower extrem ities Medical History LIZZY positive inpatient 05/2022 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 Medical History W/up for demyelinating condition s- pending Surgical History Tubes in ears twice 2004 Surgical History Adenoidectomy 2004 Surgical History Rodas catheter placement 023 [place] [facility] [place], urinary retention 06/02 - 06/09 2022 [facility] Other 01-01-2023 History general Narrative - Reported* Type Description Date Medical History Scoliosis Medical History Seasonal allergies Medical History Left convex lumbar s coliosis shown on MRI in ER 05/2022 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 Medical History Urinary retention Medical History Paresthesia of both lower extrem ities Medical History LIZZY positive inpatient 05/2022 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 She has no concerns at this time but wanted to be checked out as her mother does suffer from several arthritic autoimmune issues.Continue conservative measures, rest, ice, heat in the morning, anti-inflammatories as needed. Physical therapy is not warranted today. Imaging not warranted today. No concerns for cervical instability or dysfunction.Follow- up if symptoms persist or worsen. *Progress note was completed with the assistance of voice recognition software for dictation purposes. Please excuse any grammatical errors that were not corrected during review process. [facility] Other 07-07-2022 Evaluation note* Encounter Date Diagnosis Assessment Notes Treatment Notes Treatment Clinical Notes Nov, Exposure to COVID-19 virus (ICD-10 - Z20.822) [facility] Other 07-05-2022 Evaluation note* Encounter Date Diagnosis Assessment Notes Treatment Notes Treatment Clinical Notes Nov, Acute allergic otitis media, recurrence not specified, unspecified laterality (ICD-10 - H65.119) Discussed acute use of antihistamines and nasal steroid for symptom relief and when maintenance therapy would be recommended. Discussed antihistamine as well as Flonase for symptom relief. Discussed when referral back to ENT would be required. Nov, Dysmenorrhea (ICD-10 - N94.6) Patient is welcome to continue medication, discontinuing medication or follow-up with [facility].I did explain that there are other underlying pathologies that can cause painful cramping. This work-up and diagnosis would need to be done by [facility] especially due to her age.Patient verbalizes understanding and will let me know if she would like to continue the control or not. Nov, Other *Progress note was completed with the assistance of voice recognition software for dictation purposes. Please excuse any grammatical errors that were not corrected during review process. [facility] Other 04-26-2022 Evaluation note* Encounter Date Diagnosis Assessment Notes Treatment Notes Treatment Clinical Notes Aug, Encounter for oral contraception initial prescription (ICD-10 - Z30.011) Discussed forms of birthcontrol, discussed utilizing medication for contraception, acne, mood swings, dysmenorrhea and other hormonal symptoms. Discussed taking the medication at the same time every day. Do not miss a dose. Do not smoke while taking this medication as your risk for blood clots increases. control does not protect against STDs. The only way to completely avoid and STDs is abstinence. Discussed triphasic dosing and S/E of possible weight gain. Always try medication for 3 months to see how it affects you and your symptoms. Made mother and patient aware of increased risk of breast cancer, but decreased risk for ovarian/uterine cancers, usp. Can call in 3 months for refills if desired. [facility] Other Evaluation + Plan note No data available for this section [facility] Diagnosis Onset Date Resolution Status Acute urinary retention acut e Herpes simplex encephalitis acute HSV-2 (herpes simplex virus 2) infection acute Metronidazole adverse reaction acute Paresthesia of both lower extremities acute Primary vulvovaginal herpes simplex infection acute Vaginal discharge acute Vulvar ulceration acute [facility] Work Phone: Evaluation noteNo [employer] Other Evaluation noteNo assessment information available [facility] Work Phone: Evaluation note* Diagnosis Dysuria- Primary Acute cystitis without hematuria documented in this encounter [facility] HealthcareEvaluation note* Diagnosis Encounter for surveillance of other contraceptive documented in this encounter [facility] Healthcare[facility]* Diagnosis Status post arthroscopy of right knee- Primary Other postprocedural status documented in this encounter [facility] HealthcareHistory general Narrative - Reported* Type Description Date Medical History scoliosis Surgical History tubes in ears twice 2004 Surgical History adenoidectomy 2004 [facility] Other History general Narrative - Reported* Type Description Date Medical History scoliosis Medical History seasonal allergies Surgical History tubes in ears twice 2004 Surgical History adenoidectomy 2004 [facility] Other Hospital Discharge instructions No data available for this section [facility] Additional Instructions Maintain and routine care to rodas. Maintain rodas until you see Dr. 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 Metronidazole adverse reaction Paresthesia of both lower extremities Primary vulvovaginal herpes simplex infection Vaginal discharge Vulvar ulceration Chief Complaint L ankle injury Advance Directives Advance Directive Response Recorded Date/ Time Advance Directives No March 01, 2021 12:26pm Advance Directive Response Recorded Date/ Time Advance Directives No March 01, 2021 1:26pm Summary Purpose Family History No Family History Records FoundNo Family History Records Found No data available for this section No Family History Records Found No data available for this section No Family History Records Found Reason for Referral Reason 07/26/22 @ 1:30pm [facility] SPECIFICALLY ; PATIENT'S MOTHER CLEARED WITH PROVIDER HERSELF PLEASE CONTACT MOTHER KEELY AT [phone] TO SCHEDULE Diagnosis 1 Anxiety (F41.9) Referral Organization [facility] Cathryn Llamas Referring Provider First Name Morro Referring Provider Last Name Talon Referring Provider Specialty Nurse Praccj barronionenilson Referred Organization [facility] Referred Address [address] [place], [place] Referred Provider Specialty Psychiatry Referral Priority Routine Referral Appointment Date 2022-07-26 General Notes Tricia Borjas 023 02:12:31 PM >Received today and fax referral. [facility] Referral Dept will call patient and schedule Tricia Borjas 06/21/2022 09:26:23 AM >Fax letter for appt update Tricia Borjas 06/27/2022 08:10:07 AM >Received letter back with appt Additional Source Comments REASON FOR VISIT (unrecogniz ed section and content) Reason Comments Post-op Rt knee scope MTP TS [facility] 02/01/24 Patient Care team informatio n (unrecognized section and content) Team Status: Inactive Member Role Status Dates Ravi Zhang , DO Admit Provider Active Morro Hauser , [employer] Primary Care Provider Active Kt Pearson , Other Provider Active Isaías Pan , Other Provider Active Iman Gomez MD Other Provider Active Melo Diana MD Attending Provider Active Rayne Vitale MD Other Provider Active Team Status: Active Member Role Status Dates Morro Hauser , [employer] Primary Care Provider Active Team Status: Inactive Member Role Status Dates Morro Hauser APRN Primary Care Provider Active Samra [place] APRN Emergency Provider Active Speed Belt Sander Tender Relationship Specialty Start Date End Date Morro Hauser MD [address] [place] [address] Primary Care Provider Family Medicine 01/11/23 Speed Belt Sander Tender Relationship Specialty Start Date End Date Morro Hauser MD [address] [place] [address] Primary Care Provider Family Medicine 01/11/23 Speed Belt Sander Tender Relationship Specialty Start Date End Date Morro Hauser MD [address] [facility] [place] [address] Primary Care Provider Family Medicine 01/11/23 Goals (unrecognized section and content) Goals may be documented in a n alternate section INFORMATION SOURCE (unrecogn ized section and content) DATE CREATED AUTHOR 07/08/2022 [facility] DATE CREATED AUTHOR AUTHOR'S ORGANIZ ATION 01/18/2023 [facility] DATE CREATED AUTHOR AUTHOR'S ORGANIZ ATION 11/22/2023 [facility] DATE CREATED AUTHOR AUTHOR'S ORGANIZ ATION 04/11/2024 [facility] EPIC FOR RECORDS PERTAINING TO PATIENTS WHO ARE OR HAVE BEEN ENROLLED IN A CHEMICAL DEPENDENCY/SUBSTANCEABUSE PROGRAM, SOME INFORMATION MAY BE OMITTED. This clinical summary was aggregated from multiple sources. Caution should be exercised in using it in the provision of clinical care. This summary normalizes information from multiple sources, and as a consequence, information in this document may materially change the coding, format and clinical context of patient data. In addition, data may be omitted in some cases. CLINICAL DECISIONS SHOULD BE BASED ON THE PRIMARY CLINICAL RECORDS. [facility] [employer] [facility]. provides no warranty or guarantee of the accuracy or completeness of information in this document.
[2024-05-14] MEDS: 0.9 % SODIUM CHLORIDE 1,000 ML 1000 ML IV ×2 (18:23→20:09)
[2024-05-14] MEDS: ONDANSETRON PF 4 MG/2 ML VIAL IV ×2 (18:24→20:09)
[2024-05-14 18:25] LABS: Basophils Absolute Auto 0.1 10^3/uL (0.0-0.1); Basophils Percent Auto 0.7 % (0.2-2.0); Eosinophils Percent Auto 0.2 % (0.9-7.0); Hematocrit 39.3 % (36.0-48.0); Hemoglobin 13.5 g/dL (12.0-16.0); Immature Granulocytes Abs Auto 0.03 10^3/uL (0.00-0.03); Immature Granulocytes Pct Auto 0.4 % (0.0-0.5); Lymphocytes Absolute Auto 1.4 10^3/uL (1.2-3.8); Lymphocytes Percent Auto 16.8 % (20.5-60.0); Mean Corpuscular HGB Conc 34.4 g/dL (29.9-35.2); Mean Corpuscular Hemoglobin 29.5 pg (26.7-34.0); Mean Corpuscular Volume 85.8 fL (81.0-99.0); Mean Platelet Volume 11.7 fL (9.5-13.5); Monocytes Absolute Auto 0.5 10^3/uL (0.3-0.8); Neutrophils Absolute Auto 6.1 10^3/uL (1.4-6.5); Neutrophils Percent Auto 75.9 % (43.0-75.0); Platelet Count 204 10^3/uL (150-450); Red Blood Count 4.58 10^6/uL (4.20-5.40); Red Cell Distribution Width 12.3 % (11.0-15.0)
[2024-05-14 19:04] LABS: Alanine Aminotransferase 13 U/L (14-59); Albumin Globulin Ratio 0.9; Albumin Level 3.7 g/dL (3.4-5.0); Alkaline Phosphatase 67 U/L (46-116); Anion Gap 15.7; Aspartate Amino Transferase 14 U/L (15-37); BUN Creatinine Ratio 10.6; Bilirubin Total 1.5 mg/dL (0.2-1.0); Calcium 8.9 mg/dL (8.5-10.1); Carbon Dioxide 24.9 mmol/L (21.0-32.0); Chloride 102 mmol/L (98-107); Estimated GFR (African America >60 (>=60 mL/min/1.73m^2); Estimated GFR (Non-African Ame >60 (>=60 mL/min/1.73m^2); Globulin 3.9 g/dL; Glucose 80 mg/dL (74-106); Potassium 3.6 mmol/L (3.5-5.1); Sodium 139 mmol/L (136-145); Total Protein 7.6 g/dL (6.4-8.2)
[2024-05-14 19:06] LABS: HCG Quantitative 96918 mIU/mL
--- NOTE | 2024-05-14 19:33 | ED_ITS ---
Documented by User: Xiomara Neves MD 05/15/24 07:53 HPI HPI - General Adult General Chief complaint: OB/Uterine Contractions Stated complaint: ABOUT 10 WKS ,VOMITTING UNABLE TO KEEP ROCK Time Seen by Provider: 05/14/24 18:01 Source: patient Mode of arrival: walk-in History of Present Illness HPI narrative: The patient is a almost 12 weeks presenting to us with a nausea vomiting for the last few days, the patient have a history of hyperemesis gravidarum before with her previous Patient denies any dizziness she denies any abdominal pain or any vaginal blee ding Related Data Home Medications ?Medication ?Instructions ?Recorded ?Confirmed promethazine 12.5 mg tablet 12.5 mg PO Q6H PRN nausea and 05/14/24 05/16/24 vomiting metoclopramide HCl 10 mg tablet 10 mg PO TIDWMEAL 05/16/24 05/16/24 Previous Rx's ?Medication ?Instructions ?Recorded ondansetron 4 mg disintegrating 4 mg PO Q8H PRN nausea and 04/19/24 tablet vomiting #14 tabs ondansetron 4 mg disintegrating 4 mg PO Q6H PRN nausea and 05/16/24 tablet vomiting #12 tabs promethazine 25 mg rectal 25 mg ID Q6H PRN nausea and 05/16/24 suppository vomiting #12 ea Allergies Allergy/AdvReac Type Severity Reaction Status Date / Time No Known Drug Allergies Allergy Verified 05/16/24 19:41 Opioid HPI Opioid Management Most Recent Opioid Data: Last Pain Scale 0 05/16/24 20:16 05/16/24 Review of Systems ROS Status of ROS 10 or more systems reviewed and unremark able except as noted in history and below PFSH PFSH Social History Little interest or pleasure in doing things: not at all Feeling down, depressed, or hopeless: not at all Exam Narrative Exam Narrative: Nurses notes and vital signs reviewed and patient is not hypoxic. General: Well-appearing and in no apparent distress. Skin: Warm, dry, no pallor noted. No rash. Head: Normocephalic, atraumatic. Neck: Supple, non-tender. Eye: Pupils are equal, round and EOMI. No scleral icterus. Ears, Nose, Mouth, and Throat: TM are clear, no nasal mucosal hypertrophy. Oral mucosa is moist, no posterior oropharynx erythema, uvula is mid-line Cardiovascular: Regular Rate and Rhythm without murmur, gallop or rub. Respiratory: No accessory muscle use or respiratory distress. Lungs are clear to auscultation, no wheezing, rales or rhonchi Chest Wall: no tenderness Back: No midline thoracic or lumbar vertebral tenderness. No CVA tenderness Musculoskeletal: normal ROM, no calf or popliteal tenderness, no lower extremity edema/swelling GI: Abdomen is soft, non-distended. Normal bowel sounds. No masses appreciated. No tenderness to palpation. No rebound, guarding, or rigidity noted. Neurological: A&O x4. No cranial nerve dysfunction observed. No truncal ataxia. Moves all extremities. Sensation intact. Psychiatric: Cooperative and interactive. Normal mood and affect. Constitutional Vital Signs, click to edit/add: Last Vital Signs Temp 98.1 F 05/14/24 17:47 Pulse 69 05/14/24 21:00 Resp 16 05/14/24 21:00 BP 126/71 05/14/24 21:00 Pulse Ox 100 05/14/24 21:00 O2 Del Method Room Air 05/14/24 21:00 Course Vital Signs Vital signs: Vital Signs Temperature 98.1 F 05/14/24 17:47 Pulse Rate 98 H 05/14/24 17:47 Respiratory Rate 18 05/14/24 17:47 Blood Pressure 122/74 05/14/24 17:47 Pulse Oximetry 100 05/14/24 17:47 Oxygen Delivery Method Room Air 05/14/24 17:47 Temperature 98.1 F 05/14/24 17:47 Pulse Rate 69 05/14/24 21:00 Respiratory Rate 16 05/14/24 21:00 Blood Pressure 126/71 05/14/24 21:00 Pulse Oximetry 100 05/14/24 21:00 Oxygen Delivery Method Room Air 05/14/24 21:00 Medical Decision Making MDM Narrative Medical decision making narrative: The patient had a CBC chemistry ordered showing no acute significant pathology she was started on IV fluids in addition to Zofran After the first Zofran the patient was still having nausea she was provided with another dose and awaiting the urine result the patient care was transferred to at the shift change Attending physician Shift Change note - Pt signed out to me at shift change. See note for Dr Neves's her findings up to that point. Pt about 10-12 weeks and experiencing nausea and vomiting in first trimester of . Dr Leung prescribed zofran and she has some at home. Nausea and vomiting worse today so she came to the ED for evaluation. Blood tests unremarkable, repeat quant almost 97k, urine with ketones and incr squamous epith cells. Pt received NS IVF and IV zofran and was discharged home with instructions to see Dr Leung for follow up. - DO Estrada Lab Data Labs: Lab Results 05/14/24 05/14/24 Range/Units 18:15 19:40 WBC 8.0 (4.0-11.0) 10^3/uL RBC 4.58 (4.20-5.40) 10^6/uL Hgb 13.5 (12.0-16.0) g/dL Hct 39.3 (36.0-48.0) % MCV 85.8 (81.0-99.0) fL MCH 29.5 (26.7-34.0) pg MCHC 34.4 (29.9-35.2) g/dL RDW 12.3 (11.0-15.0) % Plt Count 204 (150-450) 10^3/uL MPV 11.7 (9.5-13.5) fL Neut % (Auto) 75.9 H (43.0-75.0) % Lymph % (Auto) 16.8 L (20.5-60.0) % Mcdowell % (Auto) 6.0 (1.7-12.0) % Eos % (Auto) 0.2 L (0.9-7.0) % Baso % (Auto) 0.7 (0.2-2.0) % Neut # (Auto) 6.1 (1.4-6.5) 10^3/uL Lymph # (Auto) 1.4 (1.2-3.8) 10^3/uL Mcdowell # (Auto) 0.5 (0.3-0.8) 10^3/uL Eos # (Auto) 0.0 (0.0-0.7) 10^3/uL Baso # (Auto) 0.1 (0.0-0.1) 10^3/uL Abs Immat Gran (auto) 0.03 (0.00-0.03) 10^3/uL Imm/Tot Granulo (auto) 0.4 (0.0-0.5) % Sodium 139 (136-145) mmol/L Potassium 3.6 (3.5-5.1) mmol/L Chloride 102 (98-107) mmol/L Carbon Dioxide 24.9 (21.0-32.0) mmol/L Anion Gap 15.7 BUN 7.0 (7.0-18.0) mg/dL Creatinine 0.66 (0.55-1.02) mg/dL Est GFR ( Amer) >60 (>=60 mL/min/1.73m^2) Est GFR (Non-Af Amer) >60 (>=60 mL/min/1.73m^2) BUN/Creatinine Ratio 10.6 Glucose 80 (74-106) mg/dL Calcium 8.9 (8.5-10.1) mg/dL Total Bilirubin 1.5 H (0.2-1.0) mg/dL AST 14 L (15-37) U/L ALT 13 L (14-59) U/L Alkaline Phosphatase 67 (46-116) U/L Total Protein 7.6 (6.4-8.2) g/dL Albumin 3.7 (3.4-5.0) g/dL Globulin 3.9 g/dL Albumin/Globulin Ratio 0.9 HCG, Quant 39262 mIU/mL Urine Color Dk. yellow (YELLOW) Urine Clarity Clear (CLEAR) Urine pH 6.0 (5.0-9.0) Ur Specific Lavinia >=1.030 A (1.005-1.025) Urine Protein 30 A (NEG/TRACE) mg/dL Urine Glucose (UA) Negative (NEGATIVE) mg/dL Urine Ketones >=80 A (NEGATIVE) mg/dL Urine Occult Blood Negative (NEGATIVE) Urine Nitrite Negative (NEGATIVE) Urine Bilirubin Small A (NEGATIVE) Urine Urobilinogen 1.0 (0.2-1.0) EU/dL Ur Leukocyte Esterase Negative (NEGATIVE) Urine RBC 0-2 (0-2) #/HPF Urine WBC None seen (NONE SEEN) #/HPF Ur Squamous Epith Cells Moderate A (NONE/RARE) #/LPF Urine Crystals None seen (None Seen) #/HPF Urine Bacteria Moderate A (NONE SEEN) #/HPF Urine Casts None seen (NONE SEEN) #/LPF Urine Mucus Small A (NONE SEEN) Ur Culture Indicated? Yes Ref Lab Order Date 05/14/24 Ref Lab Test Name Urine Ref Test Result Date See scanned report Ref Test Addition Info [facility] Blood Type O Negative Antibody Screen Negative Discharge Plan Discharge Chief Complaint: OB/Uterine Contractions Clinical Impression: Hyperemesis gravidarum before end of 22 week gestation with dehydration Nausea and vomiting Qualifiers: Vomiting type: unspecified Qualified Code(s): R11.2 - Nausea with vomiting, unspecified Patient Disposition: Home, Self-Care Time of Disposition Decision: 20:25 Prescriptions / Home Meds: No Action ondansetron 4 mg tablet,disintegrating 4 mg PO Q8H PRN (Reason: nausea and vomiting) Qty: 14 0RF promethazine 12.5 mg tablet 12.5 mg PO Q6H PRN (Reason: nausea and vomiting) metoclopramide HCl 10 mg tablet 10 mg PO TIDWMEAL promethazine 25 mg suppository 25 mg ID Q6H PRN (Reason: nausea and vomiting) Qty: 12 0RF ondansetron 4 mg tablet,disintegrating 4 mg PO Q6H PRN (Reason: nausea and vomiting) Qty: 12 0RF Print Language: [place] Island[place] Instructions: Hyperemesis Gravidarum (ED) Referrals: Benji Leung DO [Physician] - 1 week Jenna Hanley NP [Primary Care Provider] - 1 week Discharge Date/Time: 05/14/24 21:02 Documented by User: Percy Mendoza 05/24/24 06:59 HPI HPI - General Adult General Chief complaint: OB/Uterine Contractions Stated complaint: ABOUT 10 WKS ,VOMITTING UNABLE TO KEEP ROCK Time Seen by Provider: 05/14/24 18:01 Related Data Home Medications ?Medication ?Instructions ?Recorded ?Confirmed promethazine 12.5 mg tablet 12.5 mg PO Q6H PRN nausea and 05/14/24 05/16/24 vomiting metoclopramide HCl 10 mg tablet 10 mg PO TIDWMEAL 05/16/24 05/16/24 Previous Rx's ?Medication ?Instructions ?Recorded ondansetron 4 mg disintegrating 4 mg PO Q8H PRN nausea and 04/19/24 tablet vomiting #14 tabs ondansetron 4 mg disintegrating 4 mg PO Q6H PRN nausea and 05/16/24 tablet vomiting #12 tabs promethazine 25 mg rectal 25 mg ID Q6H PRN nausea and 05/16/24 suppository vomiting #12 ea Allergies Allergy/AdvReac Type Severity Reaction Status Date / Time No Known Drug Allergies Allergy Verified 05/16/24 19:41 Opioid HPI Opioid Management Most Recent Opioid Data: Last Pain Scale 0 05/16/24 20:16 05/16/24 PFSH PFSH Social History Little interest or pleasure in doing things: not at all Feeling down, depressed, or hopeless: not at all Exam Constitutional Vital Signs, click to edit/add: Last Vital Signs Temp 98.1 F 05/14/24 17:47 Pulse 69 05/14/24 21:00 Resp 16 05/14/24 21:00 BP 126/71 05/14/24 21:00 Pulse Ox 100 05/14/24 21:00 O2 Del Method Room Air 05/14/24 21:00 Course Vital Signs Vital signs: Vital Signs Temperature 98.1 F 05/14/24 17:47 Pulse Rate 98 H 05/14/24 17:47 Respiratory Rate 18 05/14/24 17:47 Blood Pressure 122/74 05/14/24 17:47 Pulse Oximetry 100 05/14/24 17:47 Oxygen Delivery Method Room Air 05/14/24 17:47 Temperature 98.1 F 05/14/24 17:47 Pulse Rate 69 05/14/24 21:00 Respiratory Rate 16 05/14/24 21:00 Blood Pressure 126/71 05/14/24 21:00 Pulse Oximetry 100 05/14/24 21:00 Oxygen Delivery Method Room Air 05/14/24 21:00 Medical Decision Making MDM Narrative Medical decision making narrative: Attending physician Shift Change note - Pt signed out to me at shift change. See note for Dr Neves's her findings up to that point. Pt about 10-12 weeks and experiencing nausea and vomiting in first trimester of . Dr Leung prescribed zofran and she has some at home. Nausea and vomiting worse today so she came to the ED for evaluation. Blood tests unremarkable, repeat quant almost 97k, urine with ketones and incr squamous epith cells. Pt received NS IVF and IV zofran and was discharged home with instructions to see Dr Leung for follow up. - DO Estrada Lab Data Lab results reviewed: Yes I reviewed the patient's lab results Labs: Lab Results 05/14/24 05/14/24 Range/Units 18:15 19:40 WBC 8.0 (4.0-11.0) 10^3/uL RBC 4.58 (4.20-5.40) 10^6/uL Hgb 13.5 (12.0-16.0) g/dL Hct 39.3 (36.0-48.0) % MCV 85.8 (81.0-99.0) fL MCH 29.5 (26.7-34.0) pg MCHC 34.4 (29.9-35.2) g/dL RDW 12.3 (11.0-15.0) % Plt Count 204 (150-450) 10^3/uL MPV 11.7 (9.5-13.5) fL Neut % (Auto) 75.9 H (43.0-75.0) % Lymph % (Auto) 16.8 L (20.5-60.0) % Mcdowell % (Auto) 6.0 (1.7-12.0) % Eos % (Auto) 0.2 L (0.9-7.0) % Baso % (Auto) 0.7 (0.2-2.0) % Neut # (Auto) 6.1 (1.4-6.5) 10^3/uL Lymph # (Auto) 1.4 (1.2-3.8) 10^3/uL Mcdowell # (Auto) 0.5 (0.3-0.8) 10^3/uL Eos # (Auto) 0.0 (0.0-0.7) 10^3/uL Baso # (Auto) 0.1 (0.0-0.1) 10^3/uL Abs Immat Gran (auto) 0.03 (0.00-0.03) 10^3/uL Imm/Tot Granulo (auto) 0.4 (0.0-0.5) % Sodium 139 (136-145) mmol/L Potassium 3.6 (3.5-5.1) mmol/L Chloride 102 (98-107) mmol/L Carbon Dioxide 24.9 (21.0-32.0) mmol/L Anion Gap 15.7 BUN 7.0 (7.0-18.0) mg/dL Creatinine 0.66 (0.55-1.02) mg/dL Est GFR ( Amer) >60 (>=60 mL/min/1.73m^2) Est GFR (Non-Af Amer) >60 (>=60 mL/min/1.73m^2) BUN/Creatinine Ratio 10.6 Glucose 80 (74-106) mg/dL Calcium 8.9 (8.5-10.1) mg/dL Total Bilirubin 1.5 H (0.2-1.0) mg/dL AST 14 L (15-37) U/L ALT 13 L (14-59) U/L Alkaline Phosphatase 67 (46-116) U/L Total Protein 7.6 (6.4-8.2) g/dL Albumin 3.7 (3.4-5.0) g/dL Globulin 3.9 g/dL Albumin/Globulin Ratio 0.9 HCG, Quant 53588 mIU/mL Urine Color Dk. yellow (YELLOW) Urine Clarity Clear (CLEAR) Urine pH 6.0 (5.0-9.0) Ur Specific Lavinia >=1.030 A (1.005-1.025) Urine Protein 30 A (NEG/TRACE) mg/dL Urine Glucose (UA) Negative (NEGATIVE) mg/dL Urine Ketones >=80 A (NEGATIVE) mg/dL Urine Occult Blood Negative (NEGATIVE) Urine Nitrite Negative (NEGATIVE) Urine Bilirubin Small A (NEGATIVE) Urine Urobilinogen 1.0 (0.2-1.0) EU/dL Ur Leukocyte Esterase Negative (NEGATIVE) Urine RBC 0-2 (0-2) #/HPF Urine WBC None seen (NONE SEEN) #/HPF Ur Squamous Epith Cells Moderate A (NONE/RARE) #/LPF Urine Crystals None seen (None Seen) #/HPF Urine Bacteria Moderate A (NONE SEEN) #/HPF Urine Casts None seen (NONE SEEN) #/LPF Urine Mucus Small A (NONE SEEN) Ur Culture Indicated? Yes Ref Lab Order Date 05/14/24 Ref Lab Test Name Urine Ref Test Result Date See scanned report Ref Test Addition Info [facility] Blood Type O Negative Antibody Screen Negative Discharge Plan Discharge Chief Complaint: OB/Uterine Contractions Clinical Impression: Hyperemesis gravidarum before end of 22 week gestation with dehydration Nausea and vomiting Qualifiers: Vomiting type: unspecified Qualified Code(s): R11.2 - Nausea with vomiting, unspecified Patient Disposition: Home, Self-Care Time of Disposition Decision: 20:25 Prescriptions / Home Meds: No Action ondansetron 4 mg tablet,disintegrating 4 mg PO Q8H PRN (Reason: nausea and vomiting) Qty: 14 0RF promethazine 12.5 mg tablet 12.5 mg PO Q6H PRN (Reason: nausea and vomiting) metoclopramide HCl 10 mg tablet 10 mg PO TIDWMEAL promethazine 25 mg suppository 25 mg ID Q6H PRN (Reason: nausea and vomiting) Qty: 12 0RF ondansetron 4 mg tablet,disintegrating 4 mg PO Q6H PRN (Reason: nausea and vomiting) Qty: 12 0RF Print Language: [place] Island[place] Instructions: Hyperemesis Gravidarum (ED) Referrals: Benji Leung DO [Physician] - 1 week Jenna Hanley NP [Primary Care Provider] - 1 week Discharge Date/Time: 05/14/24 21:02
[2024-05-14 19:59] LABS: Bilirubin Urine SMALL (NEGATIVE); Blood Urine NEGATIVE (NEGATIVE); Clarity Urine CLEAR (CLEAR); Color Urine DK. YELLOW (YELLOW); Glucose Urine UA NEGATIVE (NEGATIVE); Ketones Urine >=80 mg/dL (NEGATIVE); Leukocyte Esterase Urine NEGATIVE (NEGATIVE); Nitrite Urine NEGATIVE (NEGATIVE); Protein Urine 30 mg/dL (NEG/TRACE); Specific Gravity Urine >=1.030 (1.005-1.025)
[2024-05-14 20:02] LABS: Urine Microscopic Indicated YES
[2024-05-14 20:06] LABS: Bacteria Urine MODERATE #/HPF (NONE SEEN); Mucus Urine SMALL (NONE SEEN); RBC Urine 0-2 #/HPF (0-2); WBC Urine NONE SEEN #/HPF (NONE SEEN)
[2024-05-14 20:07] LABS: Cast Seen? NONE SEEN #/LPF (NONE SEEN); Crystals Seen? None Seen #/HPF (None Seen); Squamous Epithelial Cell Urine MODERATE #/LPF (NONE/RARE); Urine Culture Indicated YES
[2024-05-14 21:00] VITALS: BP 126/71; PULSE 69; O2SAT 100
[2024-05-16 14:42] LABS: BOX Test Reference Lab FIRELANDS; BOX Test Sent Out URINE
== END 2024-05-14 21:02 | disposition home or self-care (01) ==
PROVIDERS: Emergency Medicine; Emergency Provider Emergency Medicine; PCP Nurse Practitioner Family
DX: O21.1 Hyperemesis gravidarum with metabolic disturbance (principal); Z3A.12 12 weeks gestation of pregnancy
CPT/HCPCS: 36415; 80053; 81001; 84702; 85025; 86850; 86900; 86901; 87086; 96361; 96374; 96376; 99284; J2405

== ENCOUNTER 2024-05-16 19:23 | Emergency (ER) | payer MEDICAID, SELFPAY ==
--- OUTSIDE RECORDS SUMMARY | 2024-05-16 19:30 | XMS_ITS | CCD ---
Author Organization [facility] Care Team Providers Care Stable Hand Name Role Phone Morro Hauser Unavailable MORRO HAUSER Primary Care Physician DO Ravi Zhang Admit Provider WINNIE Hauser Primary Care Provider DO Kt Pearson Other Provider DO Isaías Pan Other Provider MD Iman Gomez Other Provider MD Melo Diana Attending Provider [phone] MD Rayne Vitale Other Provider DR JOSÉ MIGUEL LAM V Consulting Unavailable MORRO HAUSER Primary Care Unavailable CARLITOS, DR VALVERDE Attending Unavailable CARLITOS, DR VALVERDE Admitting Unavailable DR BENJI LEUNG Consulting Unavailable WINNIE Hauser Primary Care Provider WINNIE Greenberg Emergency Provider Morro Hauser Primary Care Unavailable Samra Greenberg [...] 07, 2023 11:16am take 2 tablets by [facility] every eight hours valACYclovir HCl 500 MG 2 tablets Orally three times a day Active Completed/Discontinued Medications Medication Drug Class(es) Dates Sig (Normalized) Sig (Original) acetaminophen 325 mg / HYDROcodone bitartrate 5 mg oral tablet (2 sources) Opioid Agonist Start: 01-28-2024 End: 02-11-2024 take 1-2 tablets by mouth every four hours for pain HYDROcodone-acetam inophen ([place]) 5-325 MG tablet Indications: Acute traumatic internal [...] June 09, 2022 3:36pm polyethylene glycol 3350 31535 mg powder for oral solution (2 sources) [...] challengeon 04-08-2024 Bilirubin Ql (U) 1+ Negative [facility] Glucose [Mass/Vol] Negative Negative [facility] Ketones Ql (U) Negative Negative [facility] pH (U) 7 [pH] 5.0 - 6.0 [facility] Specific gravity (U) [Rel density] 1.015 1.001 - 1.035 [facility] Laboratory - Hematology and Cell countson 04-08-2024 Hemoglobin Ql (U) + Negative [facility] Laboratory - Urinalysison Nitrite Ql (U) Negative Negative [facility] Protein Ql (U) 1+ Negative [facility] No Panel Informationon 04-08 Interpretation and review of laboratory results Abnormal [facility] LEUKOCYTES 1+ Negative [facility] UROBILINOGEN 2+ 0.2 - 1.0 [facility] ED Note-Physicianon 10-29-19 ED Note-Physician Basic Information [...] Rivera In 3 days 10/31/2023 EDT [address] [place] [address]- [employer] (1) Additional Instructions: MORRO HAUSER In 3 days [address] [place] [address]- [phone] Business (1) Additional Instructions: Patient Education Knee Sprain, Adult How to Use a Knee Immobilizer Radial Nerve Palsy Crutch Use, Adult, Mdxr-bd-Wvjl Attestation I performed a subst (more content not included)... Normal [facility] Comment on above: Result Comment: Elec tronically Signed By: Alejandra Sun PA-C\.br\Date and Time Signed: 10/28/23 16:45 EDT\.br\Electronically Co-Signed By: Rupert Soriano DO\.br\Date and Time Co-Signed: 10/29/23 08:08 EDT Consent for Treatmenton Consent for Treatment [id number] Normal [facility] Discharge Instructionson Discharge Instructions [id number] Normal [facility] ED Clinical Summaryon 2023 ED Clinical Summary (Inserted Image. Judith ble to display) [address] [address] ED Clinical Summary Person Information Name: HEENA WANG [place] Age: 18 Years : 2005 Sex: Female Language: Slovenian PCP: MORRO HAUSER CNP Marital Status: Single [...] 10/28/2023 12:35:22 10/28/2023 12:35:22 10/28/2023 12:35:22 ADDRESS: [address] [place] [phone] PHYS DOC NOTES: MEDICAL INFORMATION: Prescriptions Given: PATIENT EDUCATION INFORMATION: Instructions: Knee Sprain, Adult; How to Use a Knee Immobilizer; Radial Nerve Palsy; Crutch Use, Adult, Ckvs-cw-Bdhs Follow up: With: Address: When: Rayne Rivera [address] [place], [place] [phone] Business (1) In 3 days 10/31/2023 With: Address: When: MORRO [address] [address] [phone] [employer] (1) In 3 days DIAGNOSIS: 1:Strain of right knee Normal [facility] ED Patient Education Noteon 10-28-2023 ED [...] or lying down. General instructions ? Take eunn-dqg-vonvfuo and prescription medicines only as told by [...] provider. Document Revised: 08/14/2022 Document Reviewed: 03/26/2020 [employer] Patient Education ? 2022 [employer] How to Use a Knee Immobilizer [...] by your (more content not included)... Normal [facility] ED Patient Summaryon 024 ED Patient Summary (Inserted Image. Judith ble to display) [facility] [address] [place], [place] [address] Patient Discharge Instructions Person Information Name: HEENA WANG Age: 18 Years Arrival Date: 10/28/2023 11:07:53 Discharge Diagnosis: 1:Strain of right knee Primary Care Physician: MORRO HAUSER CNP Provider Information Primary Provider: Rupert Soriano DO Advanced Manager Communication:None The exam and treatment you received in the Emergency Department were for an urgent problem and are not intended as complete care. It is important that you follow up with a doctor, nurse practitioner, or physician?s judicial assistant for ongoing care. If your symptoms [...] Instructions: With: Address: When: Rayne Rivera [address] [place], [place] [phone] Business (1) In 3 days 10/31/2023 With: Address: When: MORRO HAUSER [address] [place] [phone] [facility] (1) In 3 days In the event that this physician does not participate in your insurance network, please consult with your insurance company to find a nearby participating provider. Patient Education Materials: Knee Sprain, Adult; How to Use a Knee Immobilizer; Radial Nerve Palsy; Crutch Use, Adult, Ppyn-bv-Wthg A MESSAGE TO ALL PATIENTS REGARDING OPIOIDS PRESCRIPTION OPIOIDS: WHAT YOU NEED TO KNOW Prescription opioids can be used to help relieve dzrhakrm-so-vamzck pain and are often prescribed following a [...] If y (more content not included)... Normal [facility] XR Knee Complete 4+ Views Mónica [...] mGy = na DAP = na Normal [facility] Quick Strepon 03-02-2023 S. pyogenes Org specific cx Ql (Throat) Negative [employer] Other Quick Strep [employer] Other XR ankle LT min 3V*on 2022 XR ankle LT min 3V* [facility] [place] [address] [place] [address] XRay Report Signed Patient: Heena Wang MR#: [id number] 5 : 2005 Acct:[id number] Age/Sex: 17 / F ADM Date: 01/07/23 Loc: ER Room: Type: [facility] ER Attending Dr: Copies to: Samra Greenberg [...] Jamie Wheatley M.D.01/07/2023 12:06 PM Dictation Location: [place] [address] Transcribed By: [facility] 01/07/231205 Dictated By: Jamie Wheatley DO 01/07/231204 Signed By: 01/07/23 120 Normal [facility] US PELVISon 07-03-2022 US PELVIS EXAMINATION: [...] JOSÉ MIGUEL LAM Date: 2022-07-03 16:[address] [facility] Basic Metabolic Panelon 05-22 Anion gap [Moles/Vol] 11.8 mmol/L Normal 6.0-15.0 [facility] Comment on above: Performed By: #### C SFCCDIFF, CSF TP, CSF TP #2, CSFCCDIFF #2, CSF PCR PANEL, GS, AERC, CSF GLU, CSF GLU #2 #### [facility] [address] [place] [address] Calcium [Mass/Vol] 8.3 mg/dL Normal 8.2-10.2 [facility] Comment on above: Performed By: #### C SFCCDIFF, CSF TP, CSF TP #2, CSFCCDIFF #2, CSF PCR PANEL, GS, AERC, CSF GLU, CSF GLU #2 #### [facility] [address] Chloride [Moles/Vol] 98 mmol/L Normal 95-[address] [facility] Comment on above: Performed By: #### C SFCCDIFF, CSF TP, CSF TP #2, CSFCCDIFF #2, CSF PCR PANEL, GS, AERC, CSF GLU, CSF GLU #2 #### [facility] [address] CO2 [Moles/Vol] 26.2 mmol/L Normal 22.0-30.0 [facility] Comment on above: Performed By: #### C SFCCDIFF, CSF TP, CSF TP #2, CSFCCDIFF #2, CSF PCR PANEL, GS, AERC, CSF GLU, CSF GLU #2 #### [address] Creatinine [Mass/Vol] 0.61 mg/dL Normal 0.44-1.03 [facility] Comment on above: Performed By: #### C SFCCDIFF, CSF TP, CSF TP #2, CSFCCDIFF #2, CSF PCR PANEL, GS, AERC, CSF GLU, CSF GLU #2 #### [address] Creatinine Clr Calc Pharmacy 181.95 [facility] Comment on above: Result Comment: PERF ORMED BY: [place] [address] PATHOLOGIST JUNIOR HIGH MATH TEACHER SUMEET GONZALEZ M.D. Performed By: #### C SFCCDIFF, CSF TP, CSF TP #2, CSFCCDIFF #2, CSF PCR PANEL, GS, AERC, CSF GLU, CSF GLU #2 #### [address] Estimated GFR ( Jannet > 60 [facility] Comment on above: Result Comment: GFR estimated reference range: According to KDOQI guidelines, <60 ml/min/1.73m2 is sufficient to diagnose a patient with chronic kidney disease. Performed By: #### C SFCCDIFF, CSF TP, CSF TP #2, CSFCCDIFF #2, CSF PCR PANEL, GS, AERC, CSF GLU, CSF GLU #2 #### [facility] [address] Estimated GFR (Non- Am > 60 Normal [facility] Comment on above: Performed By: #### C SFCCDIFF, CSF TP, CSF TP #2, CSFCCDIFF #2, CSF PCR PANEL, GS, AERC, CSF GLU, CSF GLU #2 #### [facility] [address] Glucose [Mass/Vol] 97 mg/dL Normal 70-100 [facility] Comment on above: Result Comment: [facility] Glucose Reference Range is dependent on time and content of last meal. Glucose of more than 200 mg/dL in a nonstressed, ambulatory subject supports the diagnosis of Diabetes Mellitus. ADA recommended reference range Performed By: #### C SFCCDIFF, CSF TP, CSF TP #2, CSFCCDIFF #2, CSF PCR PANEL, GS, AERC, CSF GLU, CSF GLU #2 #### [facility] [address] Potassium [Moles/Vol] 4.0 mmol/L Normal 3.5-5.1 [facility] Comment on above: Performed By: #### C SFCCDIFF, CSF TP, CSF TP #2, CSFCCDIFF #2, CSF PCR PANEL, GS, AERC, CSF GLU, CSF GLU #2 #### [facility] [address] [place] [address] [place] Sodium [Moles/Vol] 132 mmol/L Low 136-146 [facility] Comment on above: Performed By: #### C SFCCDIFF, CSF TP, CSF TP #2, CSFCCDIFF #2, CSF PCR PANEL, GS, AERC, CSF GLU, CSF GLU #2 #### [facility] [address] Urea nitrogen [Mass/Vol] 11 mg/dL Normal 9-23 [facility] Comment on above: Performed By: #### C SFCCDIFF, CSF TP, CSF TP #2, CSFCCDIFF #2, CSF PCR PANEL, GS, AERC, CSF GLU, CSF GLU #2 #### [place] [address] [place] Basophils Auto (Bld) [#/Vol] Ordered By: Melo Diana on 06-09-2022 Basophils (Bld) [#/Vol] 0.0 10*3/uL 0.0-0.2 [facility] Basophils/100 WBC Auto (Bld) Ordered By: Melo Diana on 06-09-2022 Basophils/100 WBC (Bld) 0.1 % . [facility] Complete Blood Count Auto Di ffon 06-09-2022 Basophils (Bld) [#/Vol] 0.0 10*3/uL Normal 0.0-0.2 [facility] Comment on above: Result Comment: PERF ORMED BY: [place] [address] PATHOLOGIST JUNIOR HIGH MATH TEACHER SUMEET GONZALEZ M.D. Performed By: #### C SFCCDIFF, CSF TP, CSF TP #2, CSFCCDIFF #2, CSF PCR PANEL, GS, AERC, CSF GLU, CSF GLU #2 #### [place] [address] [place] Basophils/100 WBC (Bld) 0.1 % Normal . [facility] Comment on above: Performed By: #### C SFCCDIFF, CSF TP, CSF TP #2, CSFCCDIFF #2, CSF PCR PANEL, GS, AERC, CSF GLU, CSF GLU #2 #### [place] [address] [place] Eosinophils (Bld) [#/Vol] 0.0 10*3/uL Normal 0.0-0.45 [facility] Comment on above: Performed By: #### C SFCCDIFF, CSF TP, CSF TP #2, CSFCCDIFF #2, CSF PCR PANEL, GS, AERC, CSF GLU, CSF GLU #2 #### [place] [address] [place] Eosinophils/100 WBC (Bld) 0.0 % Normal . [facility] Comment on above: Performed By: #### C SFCCDIFF, CSF TP, CSF TP #2, CSFCCDIFF #2, CSF PCR PANEL, GS, AERC, CSF GLU, CSF GLU #2 #### [facility] [address] Erythrocyte distribution width (RBC) [Ratio] 13.3 % Normal 11.9-15.3 [facility] Comment on above: Performed By: #### C SFCCDIFF, CSF TP, CSF TP #2, CSFCCDIFF #2, CSF PCR PANEL, GS, AERC, CSF GLU, CSF GLU #2 #### [address] Hematocrit (Bld) [Volume fraction] 36.1 % Normal 34.0-46.4 [facility] Comment on above: Performed By: #### C SFCCDIFF, CSF TP, CSF TP #2, CSFCCDIFF #2, CSF PCR PANEL, GS, AERC, CSF GLU, CSF GLU #2 #### [address] Hemoglobin (Bld) [Mass/Vol] 12.1 g/dL Normal 11.8-15.4 [facility] Comment on above: Performed By: #### C SFCCDIFF, CSF TP, CSF TP #2, CSFCCDIFF #2, CSF PCR PANEL, GS, AERC, CSF GLU, CSF GLU #2 #### [place] [address] [place] Lymphocytes (Bld) [#/Vol] 1.6 10*3/uL Normal 1.00-4.8 [facility] Comment on above: Performed By: #### C SFCCDIFF, CSF TP, CSF TP #2, CSFCCDIFF #2, CSF PCR PANEL, GS, AERC, CSF GLU, CSF GLU #2 #### [address] Lymphocytes/100 WBC (Bld) 16.1 % Normal . [facility] Comment on above: Performed By: #### C SFCCDIFF, CSF TP, CSF TP #2, CSFCCDIFF #2, CSF PCR PANEL, GS, AERC, CSF GLU, CSF GLU #2 #### [facility] [address] MCH (RBC) [Entitic mass] 29.4 pg Normal 24.7-34.3 [facility] Comment on above: Performed By: #### C SFCCDIFF, CSF TP, CSF TP #2, CSFCCDIFF #2, CSF PCR PANEL, GS, AERC, CSF GLU, CSF GLU #2 #### [facility] [address] MCV (RBC) [Entitic vol] 87.8 fL Normal 80-100 [facility] Comment on above: Performed By: #### C SFCCDIFF, CSF TP, CSF TP #2, CSFCCDIFF #2, CSF PCR PANEL, GS, AERC, CSF GLU, CSF GLU #2 #### [address] Mean Corpuscular HGB Conc 33.5 g/dL Normal 32.0-35.0 [facility] Comment on above: Performed By: #### C SFCCDIFF, CSF TP, CSF TP #2, CSFCCDIFF #2, CSF PCR PANEL, GS, AERC, CSF GLU, CSF GLU #2 #### [address] Monocytes (Bld) [#/Vol] 1.0 10*3/uL High 0.0-0.8 [facility] Comment on above: Performed By: #### C SFCCDIFF, CSF TP, CSF TP #2, CSFCCDIFF #2, CSF PCR PANEL, GS, AERC, CSF GLU, CSF GLU #2 #### [address] Monocytes/100 WBC (Bld) 10.4 % Normal . [facility] Comment on above: Performed By: #### C SFCCDIFF, CSF TP, CSF TP #2, CSFCCDIFF #2, CSF PCR PANEL, GS, AERC, CSF GLU, CSF GLU #2 #### [facility] [address] Neutrophils (Bld) [#/Vol] 7.2 10*3/uL Normal 1.8-7.7 [facility] Comment on above: Performed By: #### C SFCCDIFF, CSF TP, CSF TP #2, CSFCCDIFF #2, CSF PCR PANEL, GS, AERC, CSF GLU, CSF GLU #2 #### [facility] [address] Neutrophils/100 WBC (Bld) 73.4 % Normal . [facility] Comment on above: Performed By: #### C SFCCDIFF, CSF TP, CSF TP #2, CSFCCDIFF #2, CSF PCR PANEL, GS, AERC, CSF GLU, CSF GLU #2 #### [address] NRBC% 0.1 /100{WBC} Normal 0-0.5 [facility] Comment on above: Performed By: #### C SFCCDIFF, CSF TP, CSF TP #2, CSFCCDIFF #2, CSF PCR PANEL, GS, AERC, CSF GLU, CSF GLU #2 #### [address] Platelet mean volume (Bld) [Entitic vol] 9.5 fL Normal 6.3-10.7 [facility] Comment on above: Performed By: #### C SFCCDIFF, CSF TP, CSF TP #2, CSFCCDIFF #2, CSF PCR PANEL, GS, AERC, CSF GLU, CSF GLU #2 #### [address] Platelets (Bld) [#/Vol] 273 10*3/uL Normal 150-450 [facility] Comment on above: Performed By: #### C SFCCDIFF, CSF TP, CSF TP #2, CSFCCDIFF #2, CSF PCR PANEL, GS, AERC, CSF GLU, CSF GLU #2 #### [place] [address] [place] RBC (Bld) [#/Vol] 4.11 10*6/uL Normal 3.60-5.00 [facility] Comment on above: Performed By: #### C SFCCDIFF, CSF TP, CSF TP #2, CSFCCDIFF #2, CSF PCR PANEL, GS, AERC, CSF GLU, CSF GLU #2 #### [facility] [address] [place] [id number] [place] WBC (Bld) [#/Vol] 9.8 10*3/uL Normal 3.8-11.6 [facility] Comment on above: Performed By: #### C SFCCDIFF, CSF TP, CSF TP #2, CSFCCDIFF #2, CSF PCR PANEL, GS, AERC, CSF GLU, CSF GLU #2 #### [facility] [address] Creatinine and Glomerular fi ltration rate.predicted panel (S/P/Bld)Ordered By: Melo Diana on 06-09-2022 Creatinine [Mass/Vol] 0.61 mg/dL 0.44-1.03 [facility] Eosinophils Auto (Bld) [#/Vo l]Ordered By: Melo Diana on 06-09-2022 Eosinophils (Bld) [#/Vol] 0.0 10*3/uL 0.0-0.45 [facility] Eosinophils/100 WBC Auto (Bl d)Ordered By: Melo Diana on 06-09-2022 Eosinophils/100 WBC (Bld) 0.0 % . [facility] Erythrocyte distribution wid th Auto (RBC) [Ratio]Ordered By: Melo Diana on 06-09-2022 Erythrocyte distribution width (RBC) [Ratio] 13.3 % 11.9-15.3 [facility] Estimated glomerular filtrat ion rate (GFR) non- AmericanOrdered By: Melo Diana on 06-09-2022 GFR/1.73 sq M.predicted among non-blacks MDRD (S/P/Bld) [Vol rate/Area] > 60 mL/Min [facility] Hematocrit Auto (Bld) [Volum e fraction]Ordered By: Melo Diana on 06-09-2022 Hematocrit (Bld) [Volume fraction] 36.1 % 34.0-46.4 [facility] Hemoglobin [Mass/volume] in BloodOrdered By: Melo Diana on 06-09-2022 Hemoglobin (Bld) [Mass/Vol] 12.1 g/dL 11.8-15.4 [facility] Leukocytes [#/volume] correc gloria for nucleated erythrocytes in Blood by Automated counOrdered By: Melo Diana on 06-09-2022 WBC corrected for nucl RBC Auto (Bld) [#/Vol] 9.8 10*3/uL 3.8-11.6 [facility] Lymphocytes Auto (Bld) [#/Vo l]Ordered By: Melo Diana on 06-09-2022 Lymphocytes (Bld) [#/Vol] 1.6 10*3/uL 1.00-4.8 [facility] Lymphocytes/100 WBC Auto (Bl d)Ordered By: Melo Diana on 06-09-2022 Lymphocytes/100 WBC (Bld) 16.1 % . [facility] MCH Auto (RBC) [Entitic mass ]Ordered By: Melo Diana on 06-09-2022 MCH (RBC) [Entitic mass] 29.4 pg 24.7-34.3 [facility] MCHC Auto (RBC) [Mass/Vol]Or dered By: Melo Diana on 06-09-2022 MCHC (RBC) [Mass/Vol] 33.5 g/dL 32.0-35.0 [facility] MCV Auto (RBC) [Entitic vol] Ordered By: Melo Diana on 06-09-2022 MCV (RBC) [Entitic vol] 87.8 fL 80-100 [facility] Monocytes Auto (Bld) [#/Vol] Ordered By: Melo Diana on 06-09-2022 Monocytes (Bld) [#/Vol] 1.0 10*3/uL 0.0-0.8 [facility] Monocytes/100 WBC Auto (Bld) Ordered By: Melo Diana on 06-09-2022 Monocytes/100 WBC (Bld) 10.4 % . [facility] Neutrophils Auto (Bld) [#/Vo l]Ordered By: Melo Diana on 06-09-2022 Neutrophils (Bld) [#/Vol] 7.2 10*3/uL 1.8-7.7 [facility] Neutrophils/100 WBC Auto (Bl d)Ordered By: Melo Diana on 06-09-2022 Neutrophils/100 WBC (Bld) 73.4 % . [facility] No Panel InformationOrdered By: Melo Diana on 06-09-2022 Estimated GFR () > 60 mL/Min [facility] Comment on above: GFR estimated refere nce range: According to KDOQI guidelines, <60 ml/min/1.73m2 is sufficient to diagnose a patient with chronic kidney disease. Pharmacy Creatinine Clearance (Chem 181.95 [facility] Nucleated erythrocytes [Pres ence] in Blood by Automated countOrdered By: Melo Diana on 06-09-2022 Nucleated RBC Auto Ql (Bld) 0.1 /100{WBC} 0-0.5 [facility] Platelet mean volume Auto (B ld) [Entitic vol]Ordered By: Melo Diana on 06-09-2022 Platelet mean volume (Bld) [Entitic vol] 9.5 fL 6.3-10.7 [facility] Platelets Auto (Bld) [#/Vol] Ordered By: Melo Diana on 06-09-2022 Platelets (Bld) [#/Vol] 273 10*3/uL 150-450 [facility] RBC Auto (Bld) [#/Vol]Ordere d By: Melo Diana on 06-09-2022 RBC (Bld) [#/Vol] 4.11 10*6/uL 3.60-5.00 [facility] Serum or plasma anion gap de terminationOrdered By: Melo Diana on 06-09-2022 Anion gap [Moles/Vol] 11.8 mmol/L 6.0-15.0 [facility] Serum or plasma calcium diomedes urement (mass/volume)Ordered By: Melo Diana on 06-09-2022 Calcium [Mass/Vol] 8.3 mg/dL 8.2-10.2 [facility] Serum or plasma chloride omar surement (moles/volume)Ordered By: Melo Diana on 06-09-2022 Chloride [Moles/Vol] 98 mmol/L 95-[address] [facility] Serum or plasma glucose diomedes urement (mass/volume)Ordered By: Melo Diana on 06-09-2022 Glucose [Mass/Vol] 97 mg/dL 70-100 [facility] Comment on above: ADA recommended refe rence rangeRandom Glucose Reference Range is dependent on time and content of last meal. Glucose of more than 200 mg/dL in a nonstressed, ambulatory subject supports the diagnosis of Diabetes Mellitus. Serum or plasma potassium me asurement (moles/volume)Ordered By: Melo Diana on 06-09-2022 Potassium [Moles/Vol] 4.0 mmol/L 3.5-5.1 [facility] Serum or plasma sodium measu rement (moles/volume)Ordered By: Melo Diana on 06-09-2022 Sodium [Moles/Vol] 132 mmol/L 136-146 [facility] Serum or plasma total carbon dioxide measurement (moles/volume)Ordered By: Melo Diana on 06-09-2022 CO2 [Moles/Vol] 26.2 mmol/L 22.0-30.0 [facility] Serum or plasma urea nitroge n measurement (mass/volume)Ordered By: Melo Diana on 06-09-2022 Urea nitrogen [Mass/Vol] 11 mg/dL 9- [facility] WBC Auto (Bld) [#/Vol]Ordere d By: Melo Diana on 06-09-2022 WBC (Bld) [#/Vol] 9.8 10*3/uL 3.8-11.6 [facility] Basic Metabolic Panelon 05-21 Anion gap [Moles/Vol] 13.4 mmol/L Normal 6.0-15.0 [facility] Comment on above: Performed By: #### C SFCCDIFF, CSF TP, CSF TP #2, CSFCCDIFF #2, CSF PCR PANEL, GS, AERC, CSF GLU, CSF GLU #2 #### [facility] [address] Calcium [Mass/Vol] 8.4 mg/dL Normal 8.2-10.2 [facility] Comment on above: Performed By: #### C SFCCDIFF, CSF TP, CSF TP #2, CSFCCDIFF #2, CSF PCR PANEL, GS, AERC, CSF GLU, CSF GLU #2 #### [facility] [address] Chloride [Moles/Vol] 98 mmol/L Normal 95-[address] [facility] Comment on above: Performed By: #### C SFCCDIFF, CSF TP, CSF TP #2, CSFCCDIFF #2, CSF PCR PANEL, GS, AERC, CSF GLU, CSF GLU #2 #### [facility] [address] CO2 [Moles/Vol] 27.5 mmol/L Normal 22.0-30.0 [facility] Comment on above: Performed By: #### C SFCCDIFF, CSF TP, CSF TP #2, CSFCCDIFF #2, CSF PCR PANEL, GS, AERC, CSF GLU, CSF GLU #2 #### [facility] [address] Creatinine [Mass/Vol] 0.62 mg/dL Normal 0.44-1.03 [facility] Comment on above: Performed By: #### C SFCCDIFF, CSF TP, CSF TP #2, CSFCCDIFF #2, CSF PCR PANEL, GS, AERC, CSF GLU, CSF GLU #2 #### [facility] [address] Creatinine Clr Calc Pharmacy 179.02 [facility] Comment on above: Result Comment: PERF ORMED BY: [place] [address] PATHOLOGIST JUNIOR HIGH MATH TEACHER SUMEET GONZALEZ M.D. Performed By: #### C SFCCDIFF, CSF TP, CSF TP #2, CSFCCDIFF #2, CSF PCR PANEL, GS, AERC, CSF GLU, CSF GLU #2 #### [address] Estimated GFR ( Jannet > 60 Normal [facility] Comment on above: Result Comment: GFR estimated reference range: According to KDOQI guidelines, <60 ml/min/1.73m2 is sufficient to diagnose a patient with chronic kidney disease. Performed By: #### C SFCCDIFF, CSF TP, CSF TP #2, CSFCCDIFF #2, CSF PCR PANEL, GS, AERC, CSF GLU, CSF GLU #2 #### [address] Estimated GFR (Non- Am > 60 [facility] Comment on above: Performed By: #### C SFCCDIFF, CSF TP, CSF TP #2, CSFCCDIFF #2, CSF PCR PANEL, GS, AERC, CSF GLU, CSF GLU #2 #### [address] Glucose [Mass/Vol] 88 mg/dL Normal 70-100 [facility] Comment on above: Result Comment: [place] Glucose Reference Range is dependent on time and content of last meal. Glucose of more than 200 mg/dL in a nonstressed, ambulatory subject supports the diagnosis of Diabetes Mellitus. ADA recommended reference range Performed By: #### C SFCCDIFF, CSF TP, CSF TP #2, CSFCCDIFF #2, CSF PCR PANEL, GS, AERC, CSF GLU, CSF GLU #2 #### [address] Potassium [Moles/Vol] 3.9 mmol/L Normal 3.5-5.1 [facility] Comment on above: Performed By: #### C SFCCDIFF, CSF TP, CSF TP #2, CSFCCDIFF #2, CSF PCR PANEL, GS, AERC, CSF GLU, CSF GLU #2 #### [address] Sodium [Moles/Vol] 135 mmol/L Low 136-146 [facility] Comment on above: Performed By: #### C SFCCDIFF, CSF TP, CSF TP #2, CSFCCDIFF #2, CSF PCR PANEL, GS, AERC, CSF GLU, CSF GLU #2 #### [address] Urea nitrogen [Mass/Vol] 11 mg/dL Normal 9-23 [facility] Comment on above: Performed By: #### C SFCCDIFF, CSF TP, CSF TP #2, CSFCCDIFF #2, CSF PCR PANEL, GS, AERC, CSF GLU, CSF GLU #2 #### [address] Complete Blood Count Auto Di ffon 06-08-2022 Basophils (Bld) [#/Vol] 0.0 10*3/uL Normal 0.0-0.2 [facility] Comment on above: Result Comment: PERF ORMED BY: [place] [address] PATHOLOGIST J[employer]IOR [employer]ER SUMEET GONZALEZ M.D. Performed By: #### C SFCCDIFF, CSF TP, CSF TP #2, CSFCCDIFF #2, CSF PCR PANEL, GS, AERC, CSF GLU, CSF GLU #2 #### [address] Basophils/100 WBC (Bld) 0.1 % Normal . [facility] Comment on above: Performed By: #### C SFCCDIFF, CSF TP, CSF TP #2, CSFCCDIFF #2, CSF PCR PANEL, GS, AERC, CSF GLU, CSF GLU #2 #### [address] Eosinophils (Bld) [#/Vol] 0.0 10*3/uL Normal 0.0-0.45 [facility] Comment on above: Performed By: #### C SFCCDIFF, CSF TP, CSF TP #2, CSFCCDIFF #2, CSF PCR PANEL, GS, AERC, CSF GLU, CSF GLU #2 #### [address] Eosinophils/100 WBC (Bld) 0.0 % Normal . [facility] Comment on above: Performed By: #### C SFCCDIFF, CSF TP, CSF TP #2, CSFCCDIFF #2, CSF PCR PANEL, GS, AERC, CSF GLU, CSF GLU #2 #### [address] Erythrocyte distribution width (RBC) [Ratio] 13.0 % Normal 11.9-15.3 [facility] Comment on above: Performed By: #### C SFCCDIFF, CSF TP, CSF TP #2, CSFCCDIFF #2, CSF PCR PANEL, GS, AERC, CSF GLU, CSF GLU #2 #### [address] Hematocrit (Bld) [Volume fraction] 38.0 % Normal 34.0-46.4 [facility] Comment on above: Performed By: #### C SFCCDIFF, CSF TP, CSF TP #2, CSFCCDIFF #2, CSF PCR PANEL, GS, AERC, CSF GLU, CSF GLU #2 #### [address] Hemoglobin (Bld) [Mass/Vol] 12.3 g/dL Normal 11.8-15.4 [facility] Comment on above: Performed By: #### C SFCCDIFF, CSF TP, CSF TP #2, CSFCCDIFF #2, CSF PCR PANEL, GS, AERC, CSF GLU, CSF GLU #2 #### [address] Lymphocytes (Bld) [#/Vol] 1.8 10*3/uL Normal 1.00-4.8 [facility] Comment on above: Performed By: #### C SFCCDIFF, CSF TP, CSF TP #2, CSFCCDIFF #2, CSF PCR PANEL, GS, AERC, CSF GLU, CSF GLU #2 #### [address] Lymphocytes/100 WBC (Bld) 12.8 % Normal . [facility] Comment on above: Performed By: #### C SFCCDIFF, CSF TP, CSF TP #2, CSFCCDIFF #2, CSF PCR PANEL, GS, AERC, CSF GLU, CSF GLU #2 #### [address] MCH (RBC) [Entitic mass] 28.8 pg Normal 24.7-34.3 [facility] Comment on above: Performed By: #### C SFCCDIFF, CSF TP, CSF TP #2, CSFCCDIFF #2, CSF PCR PANEL, GS, AERC, CSF GLU, CSF GLU #2 #### [address] MCV (RBC) [Entitic vol] 88.8 fL Normal 80-100 [facility] Comment on above: Performed By: #### C SFCCDIFF, CSF TP, CSF TP #2, CSFCCDIFF #2, CSF PCR PANEL, GS, AERC, CSF GLU, CSF GLU #2 #### [address] Mean Corpuscular HGB Conc 32.4 g/dL Normal 32.0-35.0 [facility] Comment on above: Performed By: #### C SFCCDIFF, CSF TP, CSF TP #2, CSFCCDIFF #2, CSF PCR PANEL, GS, AERC, CSF GLU, CSF GLU #2 #### [address] Monocytes (Bld) [#/Vol] 1.1 10*3/uL High 0.0-0.8 [facility] Comment on above: Performed By: #### C SFCCDIFF, CSF TP, CSF TP #2, CSFCCDIFF #2, CSF PCR PANEL, GS, AERC, CSF GLU, CSF GLU #2 #### [address] Monocytes/100 WBC (Bld) 7.8 % Normal . [facility] Comment on above: Performed By: #### C SFCCDIFF, CSF TP, CSF TP #2, CSFCCDIFF #2, CSF PCR PANEL, GS, AERC, CSF GLU, CSF GLU #2 #### [facility] [address] Neutrophils (Bld) [#/Vol] 11.4 10*3/uL High 1.8-7.7 [facility] Comment on above: Performed By: #### C SFCCDIFF, CSF TP, CSF TP #2, CSFCCDIFF #2, CSF PCR PANEL, GS, AERC, CSF GLU, CSF GLU #2 #### [facility] [address] Neutrophils/100 WBC (Bld) 79.3 % Normal . [facility] Comment on above: Performed By: #### C SFCCDIFF, CSF TP, CSF TP #2, CSFCCDIFF #2, CSF PCR PANEL, GS, AERC, CSF GLU, CSF GLU #2 #### [facility] [address] [place] [address] [place] NRBC% 0.2 /100{WBC} Normal 0-0.5 [facility] Comment on above: Performed By: #### C SFCCDIFF, CSF TP, CSF TP #2, CSFCCDIFF #2, CSF PCR PANEL, GS, AERC, CSF GLU, CSF GLU #2 #### [facility] [address] [place] [address] [place] Platelet mean volume (Bld) [Entitic vol] 10.1 fL Normal 6.3-10.7 [facility] Comment on above: Performed By: #### C SFCCDIFF, CSF TP, CSF TP #2, CSFCCDIFF #2, CSF PCR PANEL, GS, AERC, CSF GLU, CSF GLU #2 #### [facility] [address] Platelets (Bld) [#/Vol] 273 10*3/uL Normal 150-450 [facility] Comment on above: Performed By: #### C SFCCDIFF, CSF TP, CSF TP #2, CSFCCDIFF #2, CSF PCR PANEL, GS, AERC, CSF GLU, CSF GLU #2 #### [facility] [address] RBC (Bld) [#/Vol] 4.29 10*6/uL Normal 3.60-5.00 [facility] Comment on above: Performed By: #### C SFCCDIFF, CSF TP, CSF TP #2, CSFCCDIFF #2, CSF PCR PANEL, GS, AERC, CSF GLU, CSF GLU #2 #### [facility] [address] WBC (Bld) [#/Vol] 14.3 10*3/uL High 3.8-11.6 [facility] Comment on above: Performed By: #### C SFCCDIFF, CSF TP, CSF TP #2, CSFCCDIFF #2, CSF PCR PANEL, GS, AERC, CSF GLU, CSF GLU #2 #### [facility] [address] Basic Metabolic Panelon 05-21 Anion gap [Moles/Vol] 15.7 mmol/L High 6.0-15.0 [facility] Comment on above: Performed By: #### C SFCCDIFF, CSF TP, CSF TP #2, CSFCCDIFF #2, CSF PCR PANEL, GS, AERC, CSF GLU, CSF GLU #2 #### [facility] [address] Calcium [Mass/Vol] 8.9 mg/dL Normal 8.2-10.2 [facility] Comment on above: Performed By: #### C SFCCDIFF, CSF TP, CSF TP #2, CSFCCDIFF #2, CSF PCR PANEL, GS, AERC, CSF GLU, CSF GLU #2 #### [facility] [address] Chloride [Moles/Vol] 98 mmol/L Normal 95-[address] [facility] Comment on above: Performed By: #### C SFCCDIFF, CSF TP, CSF TP #2, CSFCCDIFF #2, CSF PCR PANEL, GS, AERC, CSF GLU, CSF GLU #2 #### [address] CO2 [Moles/Vol] 27.4 mmol/L Normal 22.0-30.0 [facility] Comment on above: Performed By: #### C SFCCDIFF, CSF TP, CSF TP #2, CSFCCDIFF #2, CSF PCR PANEL, GS, AERC, CSF GLU, CSF GLU #2 #### [address] Creatinine [Mass/Vol] 0.65 mg/dL Normal 0.44-1.03 [facility] Comment on above: Performed By: #### C SFCCDIFF, CSF TP, CSF TP #2, CSFCCDIFF #2, CSF PCR PANEL, GS, AERC, CSF GLU, CSF GLU #2 #### [address] Creatinine Clr Calc Pharmacy 170.76 [facility] Comment on above: Result Comment: PERF ORMED BY: [place] [address] PATHOLOGIST JUNIOR H[employer] TEACHER SUMEET GONZALEZ M.D. Performed By: #### C SFCCDIFF, CSF TP, CSF TP #2, CSFCCDIFF #2, CSF PCR PANEL, GS, AERC, CSF GLU, CSF GLU #2 #### [address] Estimated GFR ( Jannet > 60 [facility] Comment on above: Result Comment: GFR estimated reference range: According to KDOQI guidelines, <60 ml/min/1.73m2 is sufficient to diagnose a patient with chronic kidney disease. Performed By: #### C SFCCDIFF, CSF TP, CSF TP #2, CSFCCDIFF #2, CSF PCR PANEL, GS, AERC, CSF GLU, CSF GLU #2 #### [address] Estimated GFR (Non- Am > 60 Normal [facility] Comment on above: Performed By: #### C SFCCDIFF, CSF TP, CSF TP #2, CSFCCDIFF #2, CSF PCR PANEL, GS, AERC, CSF GLU, CSF GLU #2 #### [facility] [address] Glucose [Mass/Vol] 120 mg/dL High 70-100 [facility] Comment on above: Result Comment: Burt Glucose Reference Range is dependent on time and content of last meal. Glucose of more than 200 mg/dL in a nonstressed, ambulatory subject supports the diagnosis of Diabetes Mellitus. ADA recommended reference range Performed By: #### C SFCCDIFF, CSF TP, CSF TP #2, CSFCCDIFF #2, CSF PCR PANEL, GS, AERC, CSF GLU, CSF GLU #2 #### [address] Potassium [Moles/Vol] 4.1 mmol/L Normal 3.5-5.1 [facility] Comment on above: Performed By: #### C SFCCDIFF, CSF TP, CSF TP #2, CSFCCDIFF #2, CSF PCR PANEL, GS, AERC, CSF GLU, CSF GLU #2 #### [address] Sodium [Moles/Vol] 137 mmol/L Normal 136-146 [facility] Comment on above: Performed By: #### C SFCCDIFF, CSF TP, CSF TP #2, CSFCCDIFF #2, CSF PCR PANEL, GS, AERC, CSF GLU, CSF GLU #2 #### [facility] [address] Urea nitrogen [Mass/Vol] 9 mg/dL Normal 9-23 [facility] Comment on above: Performed By: #### C SFCCDIFF, CSF TP, CSF TP #2, CSFCCDIFF #2, CSF PCR PANEL, GS, AERC, CSF GLU, CSF GLU #2 #### [address] Complete Blood Count Auto Di ffon 06-07-2022 Basophils (Bld) [#/Vol] 0.0 10*3/uL Normal 0.0-0.2 [facility] Comment on above: Result Comment: PERF ORMED BY: [place] [address] PATHOLOGIST JUNIOR H[employer] M[employer] TEACHER SUMEET GONZALEZ M.D. Performed By: #### C SFCCDIFF, CSF TP, CSF TP #2, CSFCCDIFF #2, CSF PCR PANEL, GS, AERC, CSF GLU, CSF GLU #2 #### [address] Basophils/100 WBC (Bld) 0.1 % Normal . [facility] Comment on above: Performed By: #### C SFCCDIFF, CSF TP, CSF TP #2, CSFCCDIFF #2, CSF PCR PANEL, GS, AERC, CSF GLU, CSF GLU #2 #### [place] [address] [place] Eosinophils (Bld) [#/Vol] 0.0 10*3/uL Normal 0.0-0.45 [facility] Comment on above: Performed By: #### C SFCCDIFF, CSF TP, CSF TP #2, CSFCCDIFF #2, CSF PCR PANEL, GS, AERC, CSF GLU, CSF GLU #2 #### [address] Eosinophils/100 WBC (Bld) 0.0 % Normal . [facility] Comment on above: Performed By: #### C SFCCDIFF, CSF TP, CSF TP #2, CSFCCDIFF #2, CSF PCR PANEL, GS, AERC, CSF GLU, CSF GLU #2 #### [place] [address] [place] Erythrocyte distribution width (RBC) [Ratio] 13.1 % Normal 11.9-15.3 [facility] Comment on above: Performed By: #### C SFCCDIFF, CSF TP, CSF TP #2, CSFCCDIFF #2, CSF PCR PANEL, GS, AERC, CSF GLU, CSF GLU #2 #### [address] Hematocrit (Bld) [Volume fraction] 39.3 % Normal 34.0-46.4 [facility] Comment on above: Performed By: #### C SFCCDIFF, CSF TP, CSF TP #2, CSFCCDIFF #2, CSF PCR PANEL, GS, AERC, CSF GLU, CSF GLU #2 #### [address] Hemoglobin (Bld) [Mass/Vol] 12.8 g/dL Normal 11.8-15.4 [facility] Comment on above: Performed By: #### C SFCCDIFF, CSF TP, CSF TP #2, CSFCCDIFF #2, CSF PCR PANEL, GS, AERC, CSF GLU, CSF GLU #2 #### [address] Lymphocytes (Bld) [#/Vol] 1.6 10*3/uL Normal 1.00-4.8 [facility] Comment on above: Performed By: #### C SFCCDIFF, CSF TP, CSF TP #2, CSFCCDIFF #2, CSF PCR PANEL, GS, AERC, CSF GLU, CSF GLU #2 #### [address] Lymphocytes/100 WBC (Bld) 8.2 % Normal . [facility] Comment on above: Performed By: #### C SFCCDIFF, CSF TP, CSF TP #2, CSFCCDIFF #2, CSF PCR PANEL, GS, AERC, CSF GLU, CSF GLU #2 #### [address] MCH (RBC) [Entitic mass] 28.7 pg Normal 24.7-34.3 [facility] Comment on above: Performed By: #### C SFCCDIFF, CSF TP, CSF TP #2, CSFCCDIFF #2, CSF PCR PANEL, GS, AERC, CSF GLU, CSF GLU #2 #### [address] MCV (RBC) [Entitic vol] 88.1 fL Normal 80-100 [facility] Comment on above: Performed By: #### C SFCCDIFF, CSF TP, CSF TP #2, CSFCCDIFF #2, CSF PCR PANEL, GS, AERC, CSF GLU, CSF GLU #2 #### [facility] [address] Mean Corpuscular HGB Conc 32.6 g/dL Normal 32.0-35.0 [facility] Comment on above: Performed By: #### C SFCCDIFF, CSF TP, CSF TP #2, CSFCCDIFF #2, CSF PCR PANEL, GS, AERC, CSF GLU, CSF GLU #2 #### [address] Monocytes (Bld) [#/Vol] 1.3 10*3/uL High 0.0-0.8 [facility] Comment on above: Performed By: #### C SFCCDIFF, CSF TP, CSF TP #2, CSFCCDIFF #2, CSF PCR PANEL, GS, AERC, CSF GLU, CSF GLU #2 #### [facility] [address] [place] [address] [place] Monocytes/100 WBC (Bld) 6.7 % Normal . [facility] Comment on above: Performed By: #### C SFCCDIFF, CSF TP, CSF TP #2, CSFCCDIFF #2, CSF PCR PANEL, GS, AERC, CSF GLU, CSF GLU #2 #### [place] [address] [place] Neutrophils (Bld) [#/Vol] 16.7 10*3/uL High 1.8-7.7 [facility] Comment on above: Performed By: #### C SFCCDIFF, CSF TP, CSF TP #2, CSFCCDIFF #2, CSF PCR PANEL, GS, AERC, CSF GLU, CSF GLU #2 #### [address] Neutrophils/100 WBC (Bld) 85.0 % Normal . [facility] Comment on above: Performed By: #### C SFCCDIFF, CSF TP, CSF TP #2, CSFCCDIFF #2, CSF PCR PANEL, GS, AERC, CSF GLU, CSF GLU #2 #### [address] NRBC% 0.0 /100{WBC} Normal 0-0.5 [facility] Comment on above: Performed By: #### C SFCCDIFF, CSF TP, CSF TP #2, CSFCCDIFF #2, CSF PCR PANEL, GS, AERC, CSF GLU, CSF GLU #2 #### [address] Platelet mean volume (Bld) [Entitic vol] 9.9 fL Normal 6.3-10.7 [facility] Comment on above: Performed By: #### C SFCCDIFF, CSF TP, CSF TP #2, CSFCCDIFF #2, CSF PCR PANEL, GS, AERC, CSF GLU, CSF GLU #2 #### [address] Platelets (Bld) [#/Vol] 292 10*3/uL Normal 150-450 [facility] Comment on above: Performed By: #### C SFCCDIFF, CSF TP, CSF TP #2, CSFCCDIFF #2, CSF PCR PANEL, GS, AERC, CSF GLU, CSF GLU #2 #### [address] RBC (Bld) [#/Vol] 4.46 10*6/uL Normal 3.60-5.00 [facility] Comment on above: Performed By: #### C SFCCDIFF, CSF TP, CSF TP #2, CSFCCDIFF #2, CSF PCR PANEL, GS, AERC, CSF GLU, CSF GLU #2 #### [address] WBC (Bld) [#/Vol] 19.7 10*3/uL High 3.8-11.6 [facility] Comment on above: Performed By: #### C SFCCDIFF, CSF TP, CSF TP #2, CSFCCDIFF #2, CSF PCR PANEL, GS, AERC, CSF GLU, CSF GLU #2 #### [facility] [address] MR cervical spine wo/w conon 06-07-2022 MR cervical spine wo/w con [facility] [place] [address] [place] [address] MRI Report Signed Patient: Heena Wang MR#: [id number] 5 : 2005 Acct:[id number] Age/Sex: 17 / F ADM Date: 06/02/22 Loc: 3T Room: [address] [place] [address] Type: ADM IN Attending Dr: Melo Diana [...] Connor Mae M.D.06/07/2022 8:44 AM Dictation Location: [place] [address] Transcribed By: [facility] 06/07/22843 Dictated By: Connor Mae II, MD 06/07/2238 Signed By: 06/07/22843 Normal [facility] Basic Metabolic Panelon 05-21 Anion gap [Moles/Vol] 12.6 mmol/L Normal 6.0-15.0 [facility] Comment on above: Performed By: #### C SFCCDIFF, CSF TP, CSF TP #2, CSFCCDIFF #2, CSF PCR PANEL, GS, AERC, CSF GLU, CSF GLU #2 #### [facility] [address] [place] [address] [place] Calcium [Mass/Vol] 9.2 mg/dL Normal 8.2-10.2 [facility] Comment on above: Performed By: #### C SFCCDIFF, CSF TP, CSF TP #2, CSFCCDIFF #2, CSF PCR PANEL, GS, AERC, CSF GLU, CSF GLU #2 #### [facility] [address] [place] [id number] [place] Chloride [Moles/Vol] 100 mmol/L Normal 95-[address] [facility] Comment on above: Performed By: #### C SFCCDIFF, CSF TP, CSF TP #2, CSFCCDIFF #2, CSF PCR PANEL, GS, AERC, CSF GLU, CSF GLU #2 #### [facility] [address] [place] [id number] [place] CO2 [Moles/Vol] 24.6 mmol/L Normal 22.0-30.0 [facility] Comment on above: Performed By: #### C SFCCDIFF, CSF TP, CSF TP #2, CSFCCDIFF #2, CSF PCR PANEL, GS, AERC, CSF GLU, CSF GLU #2 #### [facility] [address] Creatinine [Mass/Vol] 0.64 mg/dL Normal 0.44-1.03 [facility] Comment on above: Performed By: #### C SFCCDIFF, CSF TP, CSF TP #2, CSFCCDIFF #2, CSF PCR PANEL, GS, AERC, CSF GLU, CSF GLU #2 #### [facility] [address] Creatinine Clr Calc Pharmacy 173.43 [facility] Comment on above: Result Comment: PERF ORMED BY: [place] [address] PATHOLOGIST JUNIOR H[employer] M[employer] TEACHER SUMEET GONZALEZ M.D. Performed By: #### C SFCCDIFF, CSF TP, CSF TP #2, CSFCCDIFF #2, CSF PCR PANEL, GS, AERC, CSF GLU, CSF GLU #2 #### [address] Estimated GFR ( Jannet > 60 [facility] Comment on above: Result Comment: GFR estimated reference range: According to KDOQI guidelines, <60 ml/min/1.73m2 is sufficient to diagnose a patient with chronic kidney disease. Performed By: #### C SFCCDIFF, CSF TP, CSF TP #2, CSFCCDIFF #2, CSF PCR PANEL, GS, AERC, CSF GLU, CSF GLU #2 #### [facility] [address] Estimated GFR (Non- Am > 60 [facility] Comment on above: Performed By: #### C SFCCDIFF, CSF TP, CSF TP #2, CSFCCDIFF #2, CSF PCR PANEL, GS, AERC, CSF GLU, CSF GLU #2 #### [facility] [address] [place] [address] [place] Glucose [Mass/Vol] 136 mg/dL High 70-100 [facility] Comment on above: Result Comment: Burt Glucose Reference Range is dependent on time and content of last meal. Glucose of more than 200 mg/dL in a nonstressed, ambulatory subject supports the diagnosis of Diabetes Mellitus. ADA recommended reference range Performed By: #### C SFCCDIFF, CSF TP, CSF TP #2, CSFCCDIFF #2, CSF PCR PANEL, GS, AERC, CSF GLU, CSF GLU #2 #### [facility] [address] Potassium [Moles/Vol] 4.2 mmol/L Normal 3.5-5.1 [facility] Comment on above: Performed By: #### C SFCCDIFF, CSF TP, CSF TP #2, CSFCCDIFF #2, CSF PCR PANEL, GS, AERC, CSF GLU, CSF GLU #2 #### [facility] [address] [place] [address] [place] Sodium [Moles/Vol] 133 mmol/L Low 136-146 [facility] Comment on above: Performed By: #### C SFCCDIFF, CSF TP, CSF TP #2, CSFCCDIFF #2, CSF PCR PANEL, GS, AERC, CSF GLU, CSF GLU #2 #### [place] [address] [place] Urea nitrogen [Mass/Vol] 7 mg/dL Low 9-23 [facility] Comment on above: Performed By: #### C SFCCDIFF, CSF TP, CSF TP #2, CSFCCDIFF #2, CSF PCR PANEL, GS, AERC, CSF GLU, CSF GLU #2 #### [address] Complete Blood Count Auto Di ffon 06-06-2022 Basophils (Bld) [#/Vol] 0.0 10*3/uL Normal 0.0-0.2 [facility] Comment on above: Result Comment: PERF ORMED BY: [place] [address] PATHOLOGIST JUNIOR H[employer] M[employer] TEACHER SUMEET GONZALEZ M.D. Performed By: #### C SFCCDIFF, CSF TP, CSF TP #2, CSFCCDIFF #2, CSF PCR PANEL, GS, AERC, CSF GLU, CSF GLU #2 #### [address] Basophils/100 WBC (Bld) 0.1 % Normal . [facility] Comment on above: Performed By: #### C SFCCDIFF, CSF TP, CSF TP #2, CSFCCDIFF #2, CSF PCR PANEL, GS, AERC, CSF GLU, CSF GLU #2 #### [address] Eosinophils (Bld) [#/Vol] 0.0 10*3/uL Normal 0.0-0.45 [facility] Comment on above: Performed By: #### C SFCCDIFF, CSF TP, CSF TP #2, CSFCCDIFF #2, CSF PCR PANEL, GS, AERC, CSF GLU, CSF GLU #2 #### [address] Eosinophils/100 WBC (Bld) 0.0 % Normal . [facility] Comment on above: Performed By: #### C SFCCDIFF, CSF TP, CSF TP #2, CSFCCDIFF #2, CSF PCR PANEL, GS, AERC, CSF GLU, CSF GLU #2 #### [address] Erythrocyte distribution width (RBC) [Ratio] 13.3 % Normal 11.9-15.3 [facility] Comment on above: Performed By: #### C SFCCDIFF, CSF TP, CSF TP #2, CSFCCDIFF #2, CSF PCR PANEL, GS, AERC, CSF GLU, CSF GLU #2 #### [address] Hematocrit (Bld) [Volume fraction] 43.1 % Normal 34.0-46.4 [facility] Comment on above: Performed By: #### C SFCCDIFF, CSF TP, CSF TP #2, CSFCCDIFF #2, CSF PCR PANEL, GS, AERC, CSF GLU, CSF GLU #2 #### [facility] [address] Hemoglobin (Bld) [Mass/Vol] 14.2 g/dL Normal 11.8-15.4 [facility] Comment on above: Performed By: #### C SFCCDIFF, CSF TP, CSF TP #2, CSFCCDIFF #2, CSF PCR PANEL, GS, AERC, CSF GLU, CSF GLU #2 #### [address] Lymphocytes (Bld) [#/Vol] 0.9 10*3/uL Low 1.00-4.8 [facility] Comment on above: Performed By: #### C SFCCDIFF, CSF TP, CSF TP #2, CSFCCDIFF #2, CSF PCR PANEL, GS, AERC, CSF GLU, CSF GLU #2 #### [address] Lymphocytes/100 WBC (Bld) 12.0 % Normal . [facility] Comment on above: Performed By: #### C SFCCDIFF, CSF TP, CSF TP #2, CSFCCDIFF #2, CSF PCR PANEL, GS, AERC, CSF GLU, CSF GLU #2 #### [address] MCH (RBC) [Entitic mass] 29.2 pg Normal 24.7-34.3 [facility] Comment on above: Performed By: #### C SFCCDIFF, CSF TP, CSF TP #2, CSFCCDIFF #2, CSF PCR PANEL, GS, AERC, CSF GLU, CSF GLU #2 #### [address] MCV (RBC) [Entitic vol] 88.8 fL Normal 80-100 [facility] Comment on above: Performed By: #### C SFCCDIFF, CSF TP, CSF TP #2, CSFCCDIFF #2, CSF PCR PANEL, GS, AERC, CSF GLU, CSF GLU #2 #### [address] Mean Corpuscular HGB Conc 32.9 g/dL Normal 32.0-35.0 [facility] Comment on above: Performed By: #### C SFCCDIFF, CSF TP, CSF TP #2, CSFCCDIFF #2, CSF PCR PANEL, GS, AERC, CSF GLU, CSF GLU #2 #### [facility] [address] [place] [address] [place] Monocytes (Bld) [#/Vol] 0.1 10*3/uL Normal 0.0-0.8 [facility] Comment on above: Performed By: #### C SFCCDIFF, CSF TP, CSF TP #2, CSFCCDIFF #2, CSF PCR PANEL, GS, AERC, CSF GLU, CSF GLU #2 #### [facility] [address] Monocytes/100 WBC (Bld) 1.8 % Normal . [facility] Comment on above: Performed By: #### C SFCCDIFF, CSF TP, CSF TP #2, CSFCCDIFF #2, CSF PCR PANEL, GS, AERC, CSF GLU, CSF GLU #2 #### [facility] [address] [place] [address] [place] Neutrophils (Bld) [#/Vol] 6.5 10*3/uL Normal 1.8-7.7 [facility] Comment on above: Performed By: #### C SFCCDIFF, CSF TP, CSF TP #2, CSFCCDIFF #2, CSF PCR PANEL, GS, AERC, CSF GLU, CSF GLU #2 #### [facility] [address] [place] [address] [place] Neutrophils/100 WBC (Bld) 86.1 % Normal . [facility] Comment on above: Performed By: #### C SFCCDIFF, CSF TP, CSF TP #2, CSFCCDIFF #2, CSF PCR PANEL, GS, AERC, CSF GLU, CSF GLU #2 #### [facility] [address] [place] [address] [place] NRBC% 0.1 /100{WBC} Normal 0-0.5 [facility] Comment on above: Performed By: #### C SFCCDIFF, CSF TP, CSF TP #2, CSFCCDIFF #2, CSF PCR PANEL, GS, AERC, CSF GLU, CSF GLU #2 #### [address] Platelet mean volume (Bld) [Entitic vol] 9.3 fL Normal 6.3-10.7 [facility] Comment on above: Performed By: #### C SFCCDIFF, CSF TP, CSF TP #2, CSFCCDIFF #2, CSF PCR PANEL, GS, AERC, CSF GLU, CSF GLU #2 #### [address] Platelets (Bld) [#/Vol] 279 10*3/uL Normal 150-450 [facility] Comment on above: Performed By: #### C SFCCDIFF, CSF TP, CSF TP #2, CSFCCDIFF #2, CSF PCR PANEL, GS, AERC, CSF GLU, CSF GLU #2 #### [address] RBC (Bld) [#/Vol] 4.85 10*6/uL Normal 3.60-5.00 [facility] Comment on above: Performed By: #### C SFCCDIFF, CSF TP, CSF TP #2, CSFCCDIFF #2, CSF PCR PANEL, GS, AERC, CSF GLU, CSF GLU #2 #### [address] WBC (Bld) [#/Vol] 7.6 10*3/uL Normal 3.8-11.6 [facility] Comment on above: Performed By: #### C SFCCDIFF, CSF TP, CSF TP #2, CSFCCDIFF #2, CSF PCR PANEL, GS, AERC, CSF GLU, CSF GLU #2 #### [address] LIZZY Antinuclear Antibodieson 06-05-2022 Antinuclear Abs, IFA Positive Critically abnormal . [facility] Comment on above: Result Comment: Nega tive <1:80 Borderline 1:80 Positive >1:80 Performed By: #### C SFCCDIFF, CSF TP, CSF TP #2, CSFCCDIFF #2, CSF PCR PANEL, GS, AERC, CSF GLU, CSF GLU #2 #### [facility] [address] Homogeneous Pattern 1:160 High . [facility] Comment on above: Result Comment: ICAP nomenclature: [id number] Performed By: #### C SFCCDIFF, CSF TP, CSF TP #2, CSFCCDIFF #2, CSF PCR PANEL, GS, AERC, CSF GLU, CSF GLU #2 #### [facility] [address] Note 1 Normal . [facility] Comment on above: Result Comment: For [...] titers Nucleosomes, Histones Drug-induced SLE Speckled Sm, ECONOMIC ANALYST, SCL-70, SLE,MCTD,PSS (diffuse form), SS-A/SS-B Sjogrens Nucleolar SCL-70, PM-1/SCL High titers Scleroderma, PM/DM Centromere Centromere PSS (limited form) w/Crest syndrome variable Nuclear Dot [id number] Primary Biliary Cirrhosis Nuclear GP210, Primary Biliary Cirrhosis Membrane miranda A,B,C Performed at: - [facility] [id number] [employer] Bever[employer] Attendant: Steve Fatima PhD, Phone: [phone] Performed By: #### C SFCCDIFF, CSF TP, CSF TP #2, CSFCCDIFF #2, CSF PCR PANEL, GS, AERC, CSF GLU, CSF GLU #2 #### [address] [address] Activated partial thrombopla stin time (aPTT) in platelet poor plasma by coagulation aOrdered By: Lorelei Avery on 06-05-2022 aPTT Coag (PPP) [Time] 32.1 s 25.1-36.5 [facility] Aerobic Cultureon 06-05-2022 Aerobic Culture Comment Tube 2 No Growth 2 Days Comment Tube 2 No Anaerobes Isolated 3 Days Comment Tube 2 Gram Stain Result No Bacteria Seen 1+ White Blood Cells PERFORMED BY: [place] [address] PATHOLOGIST JUNIOR HIGH MATH TEACHER SUMEET GONZALEZ M.D. Normal [facility] Comment on above: Performed By: #### C SFCCDIFF, CSF TP, CSF TP #2, CSFCCDIFF #2, CSF PCR PANEL, GS, AERC, CSF GLU, CSF GLU #2 #### [facility] [address] [place] [address] [place] Aerobic cultureOrdered By: Zehra Avery on 06-05-2022 Bacteria identified Aer cx Nom (Unsp spec) No Growth 2 Days [facility] Albumin [Mass/volume] in Cer ebral spinal fluidOrdered By: Lorelei Avery on 06-05-2022 Albumin (CSF) [Mass/Vol] 35 mg/dL 7-29 [facility] Albumin [Mass/volume] in Ser um or PlasmaOrdered By: Lorelei Avery on 06-05-2022 Albumin [Mass/Vol] 4.3 g/dL 3.9-5.0 [facility] Anaerobic cultureOrdered By: Lorelei Avery on 06-05-2022 Bacteria identified Anaer cx Nom (Unsp spec) No Anaerobes Isolated 3 Days [facility] Angiotensin Converting Enzym mike 06-05-2022 Angiotensin converting enzyme [Catalytic activity/Vol] 26 U/L Normal 14-82 [facility] Comment on above: Result Comment: Perf ormed at: CB - [facility] [address] [id number] [employer] Attendant: Steve Fatima PhD, Phone: [phone] Performed By: #### C SFCCDIFF, CSF TP, CSF TP #2, CSFCCDIFF #2, CSF PCR PANEL, GS, AERC, CSF GLU, CSF GLU #2 #### [facility] [address] [place] [id number] [place] Anti-Myelin Oligoden Glycopr oton 06-05-2022 Anti-Myelin Oligoden Glycoprot Positive Critically abnormal Negative [facility] Comment on above: Result Comment: This test was developed and its performance characteristics determined by [facility]. It has not been cleared or approved by the Food and Drug Administration. Performed By: #### C SFCCDIFF, CSF TP, CSF TP #2, CSFCCDIFF #2, CSF PCR PANEL, GS, AERC, CSF GLU, CSF GLU #2 #### [facility] [address] [place] [id number] [facility] CSF IgG/albumin ratioOrdered By: Lorelei Avery on 06-05-2022 IgG/Albumin (CSF) [Mass ratio] 0.24 0.00-0.25 [facility] CSF NMO Ab IgGon 06-05-2022 Aquaporin 4 IgG, CSF Normal [facility] Comment on above: Order Comment: Comme nt Tube 1 Result Comment: See report. Scanned copy available in EMR. PERFORMED BY: [place] [address] PATHOLOGIST JUNIOR HIGH MATH TEACHER SUMEET GONZALEZ M.D. Performed By: #### C SFCCDIFF, CSF TP, CSF TP #2, CSFCCDIFF #2, CSF PCR PANEL, GS, AERC, CSF GLU, CSF GLU #2 #### [facility] [address] [place] [id number] [facility] CSF PCR Panelon 06-05-2022 CSF PCR Panel [...] Varicella zoster virus Not detected PERFORMED BY: [place] [address] PATHOLOGIST JUNIOR HIGH MATH TEACHER SUMEET GONZALEZ M.D. Normal [facility] Comment on above: Performed By: #### C SFCCDIFF, CSF TP, CSF TP #2, CSFCCDIFF #2, CSF PCR PANEL, GS, AERC, CSF GLU, CSF GLU #2 #### [facility] [address] [place] [address] Cell Count Differential,CSFo n 06-05-2022 Appearance, CSF Clear Normal Clear [facility] Comment on above: Order Comment: Comme nt Tube 1 Performed By: #### C SFCCDIFF, CSF TP, CSF TP #2, CSFCCDIFF #2, CSF PCR PANEL, GS, AERC, CSF GLU, CSF GLU #2 #### [facility] [address] [place] [address] Order Comment: Comme nt Tube 3 Color, CSF Colorless Normal Colorless [facility] Comment on above: Order Comment: Comme nt Tube 1 Performed By: #### C SFCCDIFF, CSF TP, CSF TP #2, CSFCCDIFF #2, CSF PCR PANEL, GS, AERC, CSF GLU, CSF GLU #2 #### [facility] [address] [place] [address] Order Comment: Comme nt Tube 3 CSF Supernatant Color Colorless Normal Colorless [facility] Comment on above: Order Comment: Comme nt Tube 1 Performed By: #### C SFCCDIFF, CSF TP, CSF TP #2, CSFCCDIFF #2, CSF PCR PANEL, GS, AERC, CSF GLU, CSF GLU #2 #### [facility] [address] [place] [address] Order Comment: Comme nt Tube 3 CSF Volume, Total 14.0 mL Normal [facility] Comment on above: Order Comment: Comme nt Tube 1 Performed By: #### C SFCCDIFF, CSF TP, CSF TP #2, CSFCCDIFF #2, CSF PCR PANEL, GS, AERC, CSF GLU, CSF GLU #2 #### [facility] [address] [place] [address] Order Comment: Comme nt Tube 3 Eosinophil, CSF 0 % Normal 0-0 [facility] Comment on above: Order Comment: Comme nt Tube 1 Performed By: #### C SFCCDIFF, CSF TP, CSF TP #2, CSFCCDIFF #2, CSF PCR PANEL, GS, AERC, CSF GLU, CSF GLU #2 #### [facility] [address] [place] [address] Order Comment: Comme nt Tube 3 Lymphocytes, CSF 81 % High 40-80 [facility] Comment on above: Order Comment: Comme nt Tube 1 Performed By: #### C SFCCDIFF, CSF TP, CSF TP #2, CSFCCDIFF #2, CSF PCR PANEL, GS, AERC, CSF GLU, CSF GLU #2 #### [facility] [address] [place] [address] Monocytes, CSF 13 % Low 15-45 [facility] Comment on above: Order Comment: Comme nt Tube 1 Performed By: #### C SFCCDIFF, CSF TP, CSF TP #2, CSFCCDIFF #2, CSF PCR PANEL, GS, AERC, CSF GLU, CSF GLU #2 #### [address] Neutrophils, CSF 6 % Normal 0-6 [facility] Comment on above: Order Comment: Comme nt Tube 1 Performed By: #### C SFCCDIFF, CSF TP, CSF TP #2, CSFCCDIFF #2, CSF PCR PANEL, GS, AERC, CSF GLU, CSF GLU #2 #### [facility] [address] [place] [address] RBC, CSF 0 /uL Normal [facility] Comment on above: Order Comment: [...] AERC, CSF GLU, CSF GLU #2 #### [address] Order Comment: Comme nt Tube 3 TNC, CSF 160 /uL Off scale high 0-5 [facility] Comment on above: Order Comment: Comme nt Tube 1 Result Comment: Crit ical value result called at 1732 on 06/05/22 Performed By: #### C SFCCDIFF, CSF TP, CSF TP #2, CSFCCDIFF #2, CSF PCR PANEL, GS, AERC, CSF GLU, CSF GLU #2 #### [place] [address] [place] Tube Number Tested, CSF Tube Number: 1 Normal [facility] Comment on above: Order Comment: Comme nt Tube 1 Result Comment: PERF ORMED BY: [place] [address] PATHOLOGIST JUNIOR HIGH MATH TEACHER SUMEET GONZALEZ M.D. Performed By: #### C SFCCDIFF, CSF TP, CSF TP #2, CSFCCDIFF #2, CSF PCR PANEL, GS, AERC, CSF GLU, CSF GLU #2 #### [place] [address] [place] Cell Count Differential,CSF #2on 06-05-2022 Lymphocytes, CSF 87 % High 40-80 [facility] Comment on above: Order Comment: Comme nt Tube 3 Performed By: #### C SFCCDIFF, CSF TP, CSF TP #2, CSFCCDIFF #2, CSF PCR PANEL, GS, AERC, CSF GLU, CSF GLU #2 #### [place] [address] [place] Monocytes, CSF 9 % Low 15-45 [facility] Comment on above: Order Comment: Comme nt Tube 3 Performed By: #### C SFCCDIFF, CSF TP, CSF TP #2, CSFCCDIFF #2, CSF PCR PANEL, GS, AERC, CSF GLU, CSF GLU #2 #### [facility] [address] [place] [address] [place] Neutrophils, CSF 4 % Normal 0-6 [facility] Comment on above: Order Comment: Comme nt Tube 3 Performed By: #### C SFCCDIFF, CSF TP, CSF TP #2, CSFCCDIFF #2, CSF PCR PANEL, GS, AERC, CSF GLU, CSF GLU #2 #### [address] [place] [address] [place] TNC, CSF 110 /uL Off scale high 0-5 [facility] Comment on above: Order Comment: Comme nt Tube 3 Result Comment: Crit ical value result called at 1737 on 06/05/22 Performed By: #### C SFCCDIFF, CSF TP, CSF TP #2, CSFCCDIFF #2, CSF PCR PANEL, GS, AERC, CSF GLU, CSF GLU #2 #### [facility] [address] [place] [address] Tube Number Tested, CSF Tube Number: 3 Normal [facility] Comment on above: Order Comment: Comme nt Tube 3 Result Comment: PERF ORMED BY: [place] [address] PATHOLOGIST JUNIOR HIGH MATH TEACHER SUMEET GONZALEZ M.D. Performed By: #### C SFCCDIFF, CSF TP, CSF TP #2, CSFCCDIFF #2, CSF PCR PANEL, GS, AERC, CSF GLU, CSF GLU #2 #### [address] Cerebrospinal fluid IgG inde xOrdered By: Lorelei Avery on 06-05-2022 IgG clearance/Albumin clearance (S+CSF) [Ratio] 0.8 0.0-0.7 [facility] Cerebrospinal fluid eosinoph il percentageOrdered By: Lorelei Avery on 06-05-2022 Eosinophils/100 WBC (CSF) 0 % 0-0 [facility] Cerebrospinal fluid lymphocy te percentageOrdered By: Lorelei Avery on 06-05-2022 Lymphocytes/Leukocytes Manual cnt (CSF) [Pure # fraction] 87 % 40-80 [facility] Cerebrospinal fluid monocyte percentageOrdered By: Lorelei Avery on 06-05-2022 Monocytes/100 WBC (CSF) 9 % 15-45 [facility] Cerebrospinal fluid neutroph il percentageOrdered By: Lorelei Avery on 06-05-2022 Neutrophils/100 WBC (CSF) 4 % 0-6 [facility] Cerebrospinal fluid post-suraj trifugation appearance determinationOrdered By: Lorelei Avery on 06-05-2022 Appearance (Spun CSF) Colorless Colorless [facility] Cerebrospinal fluid sample t ube volume measurementOrdered By: Lorelei Avery on 06-05-2022 Specimen volume (CSF) 14.0 mL [facility] Color CSFOrdered By: Lorelei Avery on 06-05-2022 Color (CSF) Colorless Colorless [facility] HERNESTO Antibody Panelon 023 Anti-ECONOMIC ANALYST 0.2 Normal 0.0-0.9 [facility] Comment on above: Performed By: #### C SFCCDIFF, CSF TP, CSF TP #2, CSFCCDIFF #2, CSF PCR PANEL, GS, AERC, CSF GLU, CSF GLU #2 #### [address] Anti-Zamora Antibodies <0.2 Normal 0.0-0.9 [facility] Comment on above: Performed By: #### C SFCCDIFF, CSF TP, CSF TP #2, CSFCCDIFF #2, CSF PCR PANEL, GS, AERC, CSF GLU, CSF GLU #2 #### [facility] [address] [place] [address] [place] Scleroderma 70 Antibodies 0.2 Normal 0.0-0.9 [facility] Comment on above: Result Comment: Perf ormed at: CB - [facility] [address] [id number] [employer] Attendant: Steve Fatima PhD, Phone: [phone] PERFORMED BY: [place] [address] PATHOLOGIST JUNIOR HIGH MATH TEACHER SUMEET GONZALEZ M.D. Performed By: #### C SFCCDIFF, CSF TP, CSF TP #2, CSFCCDIFF #2, CSF PCR PANEL, GS, AERC, CSF GLU, CSF GLU #2 #### [place] [address] [place] SS-A/Ro Sjogrens Antibody 0.2 Normal 0.0-0.9 [facility] Comment on above: Performed By: #### C SFCCDIFF, CSF TP, CSF TP #2, CSFCCDIFF #2, CSF PCR PANEL, GS, AERC, CSF GLU, CSF GLU #2 #### [address] SS-B/La Sjogrens Antibody <0.2 Normal 0.0-0.9 [facility] Comment on above: Performed By: #### C SFCCDIFF, CSF TP, CSF TP #2, CSFCCDIFF #2, CSF PCR PANEL, GS, AERC, CSF GLU, CSF GLU #2 #### [place] [address] [place] Glucose, CSF #2on 06-05-2022 Glucose, CSF #2 46 mg/dL Normal 40-70 [facility] Comment on above: Order Comment: Comme nt Tube 3 Performed By: #### C SFCCDIFF, CSF TP, CSF TP #2, CSFCCDIFF #2, CSF PCR PANEL, GS, AERC, CSF GLU, CSF GLU #2 #### [place] [address] [place] Glucose, Spinal Fluidon 05-21 Glucose, Spinal Fluid 45 mg/dL Normal 40-70 [facility] Comment on above: Order Comment: Comme nt Tube 1 Performed By: #### C SFCCDIFF, CSF TP, CSF TP #2, CSFCCDIFF #2, CSF PCR PANEL, GS, AERC, CSF GLU, CSF GLU #2 #### [address] Gram Stainon 06-05-2022 Microscopic observation Gram stain Nom (Unsp spec) Comment Tube 2 Gram Stain Result No Bacteria Seen 1+ White Blood Cells PERFORMED BY: [place] [address] PATHOLOGIST JUNIOR HIGH MATH TEACHER SUMEET GONZALEZ M.D. [facility] Comment on above: Performed By: #### C SFCCDIFF, CSF TP, CSF TP #2, CSFCCDIFF #2, CSF PCR PANEL, GS, AERC, CSF GLU, CSF GLU #2 #### [address] Gram stain for investigation of transfusion reactionOrdered By: Lorelei Avery on 06-05-2022 Microscopic observation Gram stain Nom (Unsp spec) [facility] HIV 1/O/2 Antigen/Antibodyon 06-05-2022 HIV Screen 4th Generation Non-Reactive Normal Non Reactive [facility] Comment on above: Result Comment: HIV Negative HIV-1/HIV-2 antibodies and HIV-1 p24 antigen were NOT detected. There is no laboratory evidence of HIV infection. Performed at: [facility] [address] [id number] [employer] Attendant: Steve Fatima PhD, Phone: [phone] PERFORMED BY: [address] [address] PATHOLOGIST JUNIOR HIGH MATH TEACHER USMEET GONZALEZ M.D. Performed By: #### H IV SCREEN #### [facility] , HIV 1 and HIV-2 antibody ass ay with HIV-1 p24 antigen detectionOrdered By: Lorelei Avery on 06-05-2022 HIV 1+2 Ab+HIV1 p24 Ag IA Ql Non-Reactive Non Reactive [facility] Comment on above: HIV NegativeHIV-1/HI V-2 antibodies and HIV-1 p24 antigen were NOTdetected. There is no laboratory evidence of HIV infection.Performed at: [facility] [id number] Director: Steve Fatima PhD, Phone: [phone] IgG [Mass/volume] in Cerebra l spinal fluidOrdered By: Lorelei Avery on 06-05-2022 IgG (CSF) [Mass/Vol] 8.3 mg/dL 0.0-6.[address] [facility] IgG [Mass/volume] in Serum o r PlasmaOrdered By: Lorelei Avery on 06-05-2022 IgG [Mass/Vol] 1274 mg/dL 719-1475 [facility] IgG synthesis rate [Mass/mily e] in Serum and CSF by calculationOrdered By: Lorelei Avery on 06-05-2022 IgG synthesis rate Calc (S+CSF) [Mass/Time] 13.9 mg/day -9.9 TO +3.3 [facility] Comment on above: Performed at: CB - [id number] [place], [place] [id number] Director: Steve Fatima PhD, Phone: [phone] Donta 06-05-2022 L ----- Specimen: [id number] Received: 06/06/22 Status: AMRITA Mike Num: [id number] Spec Type: Cytology Subm Dr: Kt Pearson DO Tissues: A CSF (CSF) Procedures: Cyto Prepstain, DIFF QWIK, PAPSTN Age/ Patient Sex Location Account Attending Physician Heena Wang 17/ [id number] Melo Diana MD SPEC NUM: [id number] RECD: 06/06/22 STATUS: AMRITA JAMESON NUM: [id number] RITU: 06/05/22 [facility] DR: Kt Pearson DO ENTERED: 06/06/[address] [facility] [address]: SPEC TYPE: Cytology DEPT: CNG ENTERED BY: [id number] RECV BY: [id number] ORDERED: Cyto Prepstain, DIFF QWIK, PAPSTN ORDERED: Cyto Prepstain, DIFF QWIK, PAPSTN Pathological Diagnosis Cerebrospinal fluid, cytospin, lumbar puncture: - Satisfactory for evaluation - Hypercellular specimen. - Atypical cells present with mixed population of cells including abundant lymphocytes, macrophages and occasional neutrophils. - Negative for malignant epithelial cells. For routine plant quality manager purposes, the case has been prospectively reviewed with agreement during intradepartmental consultation. Clinical Information Urinary retention, numbness/tingling in legs Gross Description Received is 2 ml colorless clear unfixed fluid said to have been obtained as Lumbar Puncture.Cytospin slides are stained with Papanicolaou and Diff-Quik stains. (RS/nh) Specimen: [id number] Received: 06/06/22 Status: AMRITA Mike Num: [id number] Spec Type: Cytology Subm Dr: Kt Pearson DO Tissues: A CSF (CSF) Procedures: Cyto Prepstain, DIFF QWIK, PAPSTN Patient: WangHeena [id number] (Continued) Specimen: [id number] Received: 06/06/22 (Continued) Signed (signature on file) Heather Giron MD 06/06/22 1423 Specimen: [id number] Received: 06/06/22 Status: AMRITA Jameson Num: [id number] Spec Type: Cytology Subm Dr: Kt Pearson DO Tissues: A CSF (CSF) Procedures: Cyto Prepstain, DIFF QWIK, PAPSTN Patient: Heena Wang [id number] (Continued) Specimen: [id number] Received: 06/06/22 (Continued) CPT Codes 68517 Specimen: Received: 06/06/22 Status: AMRITA Jameson Num: [id number] Spec Type: Cytology Subm Dr: Kt Pearson DO Tissues: A CSF (CSF) Procedures: Cyto Prepstain, DIFF QCARITO LOUISE Patient: Heena Wang [id number] (Continued) Signed (signature on file) Heather Giron MD 06/06/22 1423 Normal [facility] Laboratory - CoagulationOrde red By: Lorelei Avery on 06-05-2022 PT Coag (PPP) [Time] 13.4 s 9.0-12.[address] [facility] MR head/brain wo/w conon MR head/brain wo/w con [facility] Main [place] [address] [place] [address] MRI Report Signed Patient: Heena Wang MR#: [id number] 5 : 2005 Acct:[id number] Age/Sex: 17 / F ADM Date: 06/02/22 Loc: Room: [address] [place] [address] Type: ADM IN Attending Dr: Melo Diana [...] or acute disseminated encephalomyelitis. Impression dictated by: Connor Mae M.D.06/05/2022 12:43 PM Dictation Location: [place] [address] Transcribed By: [facility] 06/05/22 1243 Dictated By: Connor Mae II, MD 06/05/22 1224 Signed By: 06/05/22 1243 Normal [facility] Manual cerebrospinal fluid e rythrocytes count (number/volume)Ordered By: Lorelei Avery on 06-05-2022 RBC Manual cnt (CSF) [#/Vol] 0 /uL [facility] Comment on above: The reference interv al and other method performance specifications have not been established for this body fluid. The test result must be integrated into the clinical context for interpretation. No Panel InformationOrdered By: Lorelei Avery on 06-05-2022 CSF Appearance Clear Clear [facility] CSF Glucose 46 mg/dL 40-70 [facility] CSF Total Protein 59 mg/dL 15-45 [facility] CSF Tube Number Tube number: 1 [facility] No Panel InformationOrdered By: Kt Pearson on 06-05-2022 Anti-Nuclear Antibody Comment 2 See comment . [facility] Comment on above: For more information about Hep-2 cell patterns useGreysoxpatterns.org, the official website for the InternationalConsensus on Antinuclear Antibody (LIZZY) Patterns (ICAP). ----A positive LIZZY result may occur in healthy individuals (lowtiter) or be associated with a variety of diseases. Seeinterpretation chart which is not all inclusive:Pattern Antigen Detected Suggested Disease Association Homogeneous DNA(ds,ss), SLE - High titers Nucleosomes, Histones Drug-induced SLE Speckled Sm, ECONOMIC ANALYST, SCL-70, SLE,MCTD,PSS (diffuse form), SS-A/SS-B Sjogrens Nucleolar SCL-70, PM-1/SCL High titers Scleroderma, PM/DM Centromere Centromere PSS (limited form) w/Crest syndrome variable Nuclear Dot Sp100,[id number] Primary Biliary Cirrhosis Nuclear GP210, Primary Biliary CirrhosisMembrane miranda A,B,C Performed at: [address] [id number] Director: Steve Fatima PhD, Phone: [phone] ECONOMIC ANALYST Antibody 0.2 AI 0.0-0.9 [facility] Nucleated cells [#/volume] i n Cerebral spinal fluid by Manual countOrdered By: Lorelei Avery on 06-05-2022 Nucleated cells Manual cnt (CSF) [#/Vol] 0.16 10*3/uL 0-5 [facility] Comment on above: Critical valueresult calledat 1732 on 06/05/22 Partial Thromboplastin Timeo n 06-05-2022 aPTT Coag (Bld) [Time] 32.1 s Normal 25.1-36.5 [facility] Comment on above: Result Comment: PERF ORMED BY: [facility] [address] [place] [address] PATHOLOGIST JUNIOR HIGH MATH TEACHER SUMEET GONZALEZ M.D. Performed By: #### C SFCCDIFF, CSF TP, CSF TP #2, CSFCCDIFF #2, CSF PCR PANEL, GS, AERC, CSF GLU, CSF GLU #2 #### [facility] [address] Platelet poor plasma interna tional normalized ratio (INR) by coagulation assay (relatOrdered By: Lorelei Avery on 06-05-2022 INR Coag (PPP) [Relative time] 1.2 {INR} [facility] Comment on above: INR Therapeutic Rang [...] Coag (PPP) [Relative time] 1.2 {INR} Normal [facility] Comment on above: Result Comment: INR [...] AERC, CSF GLU, CSF GLU #2 #### [facility] [address] [place] [address] PT Coag (PPP) [Time] 13.4 s High 9.0-12.[address] [facility] Comment on above: Performed By: #### C SFCCDIFF, CSF TP, CSF TP #2, CSFCCDIFF #2, CSF PCR PANEL, GS, AERC, CSF GLU, CSF GLU #2 #### [facility] [address] [place] [address] RFX MOG Titeron 06-05-2022 RFX MOG Titer 1:32 Normal Neg: <1:10 [facility] Comment on above: Result Comment: This test was developed and its performance characteristics determined by [facility]. It has not been cleared or approved by the Food and Drug Administration. Performed at: [address] [id number] [employer] Attendant: Jeremías Retana MD, Phone: [phone] PERFORMED BY: [place] [address] PATHOLOGIST JUNIOR HIGH MATH TEACHER SUMEET GONZALEZ M.D. Performed By: #### C SFCCDIFF, CSF TP, CSF TP #2, CSFCCDIFF #2, CSF PCR PANEL, GS, AERC, CSF GLU, CSF GLU #2 #### [facility] [address] Scl-70 antibody assayOrdered By: Kt Pearson on 06-05-2022 SCL-70 extractable nuclear Ab IA Qn (S) 0.2 AI 0.0-0.9 [facility] Comment on above: Performed at: [facility] [address] [id number] Director: Steve Fatima PhD, Phone: [phone] Serum Sjogrens syndrome-A ex tractable nuclear antibody assay (units/volume)Ordered By: Kt Pearson on 06-05-2022 Sjogrens syndrome-A extractable nuclear Ab Qn (S) 0.2 AI 0.0-0.9 [facility] Serum Sjogrens syndrome-B ex tractable nuclear antibody assay (units/volume)Ordered By: Kt Pearson on 06-05-2022 Sjogrens syndrome-B extractable nuclear Ab Qn (S) <0.2 AI 0.0-0.9 [facility] Serum Zamora extractable nucl ear antigen (HERNESTO) antibody assay (units/volume)Ordered By: Kt Pearson on 06-05-2022 Zamora extractable nuclear Ab Qn (S) <0.2 AI 0.0-0.9 [facility] Serum angiotensin converting enzyme (SUSIE) measurementOrdered By: Kt Pearson on 06-05-2022 Angiotensin converting enzyme [Catalytic activity/Vol] 26 U/L 14-82 [facility] Comment on above: Performed at: [facility] [id number] Director: Steve Fatima PhD, Phone: [phone] Serum homogeneous pattern an tinuclear antibody (LIZZY) titerOrdered By: Kt Pearson on 06-05-2022 Homogenous nuclear Ab pattern (S) [Titer] 1:160 . [facility] Comment on above: ICAP nomenclature: A C-1 Serum nuclear antibody titer Ordered By: Kt Pearson on 06-05-2022 Nuclear Ab (S) [Titer] Positive . [facility] Comment on above: Negative <1:80 Borde rline 1:80 Positive >1:80 Total Protein, CSF #2on - Total Protein, CSF #2 59 mg/dL High 15-45 [facility] Comment on above: Order Comment: Comme nt Tube 3 Result Comment: PERF ORMED BY: [place] [address] PATHOLOGIST JUNIOR HIGH MATH TEACHER SUMEET GONZALEZ M.D. Performed By: #### C SFCCDIFF, CSF TP, CSF TP #2, CSFCCDIFF #2, CSF PCR PANEL, GS, AERC, CSF GLU, CSF GLU #2 #### [facility] [address] [place] [address] Total Protein, Spinal Fluido n 06-05-2022 Total Protein, Spinal Fluid 61 mg/dL High -45 [facility] Comment on above: Order Comment: Comme nt Tube 1 Result Comment: PERF ORMED BY: [place] [address] PATHOLOGIST JUNIOR HIGH MATH TEACHER SUMEET GONZALEZ M.D. Performed By: #### C SFCCDIFF, CSF TP, CSF TP #2, CSFCCDIFF #2, CSF PCR PANEL, GS, AERC, CSF GLU, CSF GLU #2 #### [facility] [address] [place] [address] CT abdomen pelvis w conon CT abdomen pelvis w con [facility] [place] [address] CT Scan Report Signed Patient: Heena Wang MR#: [id number] 5 : 2005 Acct:[id number] Age/Sex: 17 / F ADM Date: 06/02/22 Loc: Room: [address] [place] [address] Type: ADM IN Attending Dr: Ravi Zhang [...] Jamie Wheatley M.D.06/04/2022 12:51 PM Dictation Location: [place] [address] Transcribed By: [facility] 06/04/22 1251 Dictated By: Jamie Wheatley DO 06/04/22 1248 Signed By: 06/04/22 1251 Normal [facility] Chlamydia trachomatis DNA [P resence] in Specimen by TERESA with probe detectionOrdered By: Isaías Pan on 06-04-2022 C. trachomatis DNA TERESA+probe Ql (Unsp spec) Negative Negative [facility] Chlamydia/GC/Trich NAAon Chlamydia Trachomotis, TERESA Negative Normal Negative [facility] Comment on above: Order Comment: Comme nt Tube 1 Performed By: #### C SFCCDIFF, CSF TP, CSF TP #2, CSFCCDIFF #2, CSF PCR PANEL, GS, AERC, CSF GLU, CSF GLU #2 #### [facility] [address] [place] [address] Neisseria Gonorrhoeae, TERESA Negative Normal Negative [facility] Comment on above: Order Comment: Comme nt Tube 1 Performed By: #### C SFCCDIFF, CSF TP, CSF TP #2, CSFCCDIFF #2, CSF PCR PANEL, GS, AERC, CSF GLU, CSF GLU #2 #### [address] Trichomonas TERESA Negative Normal Negative [facility] Comment on above: Order Comment: Comme nt Tube 1 Result Comment: Perf ormed at: =G - [facility] [address] [id number] [employer] Attendant: Evelyn Arnold MD, Phone: [phone] PERFORMED BY: [place] [address] PATHOLOGIST JUNIOR HIGH MATH TEACHER SUMEET GONZALEZ M.D. Performed By: #### C SFCCDIFF, CSF TP, CSF TP #2, CSFCCDIFF #2, CSF PCR PANEL, GS, AERC, CSF GLU, CSF GLU #2 #### [address] Fungal Smearon 06-04-2022 Fungal Smear Fungus Smear Results No Yeast Like Elements Seen ---- Trichomonas Screen No Trichomonas Seen Trich Reference Reference range = None Seen PERFORMED BY: [place] [address] PATHOLOGIST JUNIOR HIGH MATH TEACHER SUMEET GONZALEZ M.D. Normal [facility] Comment on above: Performed By: #### C SFCCDIFF, CSF TP, CSF TP #2, CSFCCDIFF #2, CSF PCR PANEL, GS, AERC, CSF GLU, CSF GLU #2 #### [address] Fungal cultureOrdered By: Mónica Pan on 06-04-2022 Fungus identified Cx Nom (Unsp spec) [facility] HSV Culture and Typingon HSV Culture and Typing Abnormal . 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 Typing was confirmed by monoclonal antibody microscopic immunofluorescence. Performed at: [address] [id number] [employer] Attendant: Steve Fatima PhD, Phone: [phone] PERFORMED BY: [place] [address] PATHOLOGIST JUNIOR HIGH MATH TEACHER SUMEET GONZALEZ M.D. Performed By: #### C SFCCDIFF, CSF TP, CSF TP #2, CSFCCDIFF #2, CSF PCR PANEL, GS, AERC, CSF GLU, CSF GLU #2 #### [address] Herpes simplex virus (HSV) c ulture with typingOrdered By: Isaías Pan on 06-04-2022 HSV identified Org specific cx Nom (Unsp spec) See comment . [facility] Comment on above: Positive for Herpes simplex virus type-2. Typing wasconfirmed by monoclonal antibody microscopicimmunofluorescence.Performed at: [address] [id number] Director: Steve Fatima PhD, Phone: [phone] Neisseria gonorrhoeae DNA [P resence] in Specimen by TERESA with probe detectionOrdered By: Isaías Pan on 06-04-2022 N. gonorrhoeae DNA TERESA+probe Ql (Unsp spec) Negative Negative [facility] Trichomonas vaginalis DNA [P resence] in Specimen by TERESA with probe detectionOrdered By: Isaías Pan on 06-04-2022 T. vaginalis DNA TERESA+probe Ql (Unsp spec) Negative Negative [facility] Comment on above: Performed at: =[facility] [address] [id number] Director: Evelyn Arnold MD, Phone: [phone] Trichomonas vaginalis detect ion by wet preparationOrdered By: Isaías Pan on 06-04-2022 T. vaginalis Wet prep Ql (Unsp spec) [facility] A1C with Estimated Average G lulan 06-03-2022 Glucose [Mass/Vol] 103 mg/dL Normal [facility] Comment on above: Result Comment: PERF ORMED BY: [place] [address] PATHOLOGIST JUNIOR HIGH MATH TEACHER SUMEET GONZALEZ M.D. Performed By: #### C SFCCDIFF, CSF TP, CSF TP #2, CSFCCDIFF #2, CSF PCR PANEL, GS, AERC, CSF GLU, CSF GLU #2 #### [address] HbA1c (Bld) [Mass fraction] 5.2 % Normal 4.3-5.6 [facility] Comment on above: Result Comment: Incr eased risk for diabetes: 5.7 - 6.4 diabetes: >6.4 glycemic control for adults with diabetes: <7.0 Performed By: #### C SFCCDIFF, CSF TP, CSF TP #2, CSFCCDIFF #2, CSF PCR PANEL, GS, AERC, CSF GLU, CSF GLU #2 #### [address] Basic Metabolic Panelon 05-21 Anion gap [Moles/Vol] 13.7 mmol/L Normal 6.0-15.0 [facility] Comment on above: Performed By: #### C SFCCDIFF, CSF TP, CSF TP #2, CSFCCDIFF #2, CSF PCR PANEL, GS, AERC, CSF GLU, CSF GLU #2 #### [address] Calcium [Mass/Vol] 8.5 mg/dL Normal 8.2-10.2 [facility] Comment on above: Performed By: #### C SFCCDIFF, CSF TP, CSF TP #2, CSFCCDIFF #2, CSF PCR PANEL, GS, AERC, CSF GLU, CSF GLU #2 #### [place] [address] [place] Chloride [Moles/Vol] 102 mmol/L Normal 95-[address] [facility] Comment on above: Performed By: #### C SFCCDIFF, CSF TP, CSF TP #2, CSFCCDIFF #2, CSF PCR PANEL, GS, AERC, CSF GLU, CSF GLU #2 #### [facility] [address] CO2 [Moles/Vol] 23.8 mmol/L Normal 22.0-30.0 [facility] Comment on above: Performed By: #### C SFCCDIFF, CSF TP, CSF TP #2, CSFCCDIFF #2, CSF PCR PANEL, GS, AERC, CSF GLU, CSF GLU #2 #### [facility] [address] Creatinine [Mass/Vol] 0.79 mg/dL Normal 0.44-1.03 [facility] Comment on above: Performed By: #### C SFCCDIFF, CSF TP, CSF TP #2, CSFCCDIFF #2, CSF PCR PANEL, GS, AERC, CSF GLU, CSF GLU #2 #### [facility] [address] Creatinine Clr Calc Pharmacy 140.50 [facility] Comment on above: Performed By: #### C SFCCDIFF, CSF TP, CSF TP #2, CSFCCDIFF #2, CSF PCR PANEL, GS, AERC, CSF GLU, CSF GLU #2 #### [facility] [address] Estimated GFR ( Jannet > 60 [facility] Comment on above: Result Comment: GFR estimated reference range: According to KDOQI guidelines, <60 ml/min/1.73m2 is sufficient to diagnose a patient with chronic kidney disease. Performed By: #### C SFCCDIFF, CSF TP, CSF TP #2, CSFCCDIFF #2, CSF PCR PANEL, GS, AERC, CSF GLU, CSF GLU #2 #### [facility] [address] Estimated GFR (Non- Am > 60 [facility] Comment on above: Performed By: #### C SFCCDIFF, CSF TP, CSF TP #2, CSFCCDIFF #2, CSF PCR PANEL, GS, AERC, CSF GLU, CSF GLU #2 #### [facility] [address] Glucose [Mass/Vol] 106 mg/dL High 70-100 [facility] Comment on above: Result Comment: Burt Glucose Reference Range is dependent on time and content of last meal. Glucose of more than 200 mg/dL in a nonstressed, ambulatory subject supports the diagnosis of Diabetes Mellitus. ADA recommended reference range Performed By: #### C SFCCDIFF, CSF TP, CSF TP #2, CSFCCDIFF #2, CSF PCR PANEL, GS, AERC, CSF GLU, CSF GLU #2 #### [address] Potassium [Moles/Vol] 3.5 mmol/L Normal 3.5-5.1 [facility] Comment on above: Performed By: #### C SFCCDIFF, CSF TP, CSF TP #2, CSFCCDIFF #2, CSF PCR PANEL, GS, AERC, CSF GLU, CSF GLU #2 #### [facility] [address] Sodium [Moles/Vol] 136 mmol/L Normal 136-146 [facility] Comment on above: Performed By: #### C SFCCDIFF, CSF TP, CSF TP #2, CSFCCDIFF #2, CSF PCR PANEL, GS, AERC, CSF GLU, CSF GLU #2 #### [facility] [address] [place] [address] [place] Urea nitrogen [Mass/Vol] 7 mg/dL Low 9-23 [facility] Comment on above: Performed By: #### C SFCCDIFF, CSF TP, CSF TP #2, CSFCCDIFF #2, CSF PCR PANEL, GS, AERC, CSF GLU, CSF GLU #2 #### [place] [address] [place] C-Reactive Proteinon 01-14-2 023 C-Reactive Protein 0.6 mg/dL Normal 0.0-1.0 [facility] Comment on above: Performed By: #### C SFCCDIFF, CSF TP, CSF TP #2, CSFCCDIFF #2, CSF PCR PANEL, GS, AERC, CSF GLU, CSF GLU #2 #### [address] Complete Blood Count Auto Di ffon 06-03-2022 Basophils (Bld) [#/Vol] 0.1 10*3/uL Normal 0.0-0.2 [facility] Comment on above: Performed By: #### C SFCCDIFF, CSF TP, CSF TP #2, CSFCCDIFF #2, CSF PCR PANEL, GS, AERC, CSF GLU, CSF GLU #2 #### [address] Basophils/100 WBC (Bld) 2.0 % Normal . [facility] Comment on above: Performed By: #### C SFCCDIFF, CSF TP, CSF TP #2, CSFCCDIFF #2, CSF PCR PANEL, GS, AERC, CSF GLU, CSF GLU #2 #### [place] [address] [place] Eosinophils (Bld) [#/Vol] 0.1 10*3/uL Normal 0.0-0.45 [facility] Comment on above: Performed By: #### C SFCCDIFF, CSF TP, CSF TP #2, CSFCCDIFF #2, CSF PCR PANEL, GS, AERC, CSF GLU, CSF GLU #2 #### [place] [address] [place] Eosinophils/100 WBC (Bld) 0.9 % Normal . [facility] Comment on above: Performed By: #### C SFCCDIFF, CSF TP, CSF TP #2, CSFCCDIFF #2, CSF PCR PANEL, GS, AERC, CSF GLU, CSF GLU #2 #### [address] Erythrocyte distribution width (RBC) [Ratio] 13.6 % Normal 11.9-15.3 [facility] Comment on above: Performed By: #### C SFCCDIFF, CSF TP, CSF TP #2, CSFCCDIFF #2, CSF PCR PANEL, GS, AERC, CSF GLU, CSF GLU #2 #### [address] Hematocrit (Bld) [Volume fraction] 40.4 % Normal 34.0-46.4 [facility] Comment on above: Performed By: #### C SFCCDIFF, CSF TP, CSF TP #2, CSFCCDIFF #2, CSF PCR PANEL, GS, AERC, CSF GLU, CSF GLU #2 #### [address] Hemoglobin (Bld) [Mass/Vol] 13.3 g/dL Normal 11.8-15.4 [facility] Comment on above: Performed By: #### C SFCCDIFF, CSF TP, CSF TP #2, CSFCCDIFF #2, CSF PCR PANEL, GS, AERC, CSF GLU, CSF GLU #2 #### [address] Lymphocytes (Bld) [#/Vol] 2.9 10*3/uL Normal 1.00-4.8 [facility] Comment on above: Performed By: #### C SFCCDIFF, CSF TP, CSF TP #2, CSFCCDIFF #2, CSF PCR PANEL, GS, AERC, CSF GLU, CSF GLU #2 #### [address] Lymphocytes/100 WBC (Bld) 42.0 % Normal . [facility] Comment on above: Performed By: #### C SFCCDIFF, CSF TP, CSF TP #2, CSFCCDIFF #2, CSF PCR PANEL, GS, AERC, CSF GLU, CSF GLU #2 #### [address] MCH (RBC) [Entitic mass] 29.4 pg Normal 24.7-34.3 [facility] Comment on above: Performed By: #### C SFCCDIFF, CSF TP, CSF TP #2, CSFCCDIFF #2, CSF PCR PANEL, GS, AERC, CSF GLU, CSF GLU #2 #### [facility] [address] MCV (RBC) [Entitic vol] 89.1 fL Normal 80-100 [facility] Comment on above: Performed By: #### C SFCCDIFF, CSF TP, CSF TP #2, CSFCCDIFF #2, CSF PCR PANEL, GS, AERC, CSF GLU, CSF GLU #2 #### [facility] [address] Mean Corpuscular HGB Conc 33.0 g/dL Normal 32.0-35.0 [facility] Comment on above: Performed By: #### C SFCCDIFF, CSF TP, CSF TP #2, CSFCCDIFF #2, CSF PCR PANEL, GS, AERC, CSF GLU, CSF GLU #2 #### [address] Monocytes (Bld) [#/Vol] 0.6 10*3/uL Normal 0.0-0.8 [facility] Comment on above: Performed By: #### C SFCCDIFF, CSF TP, CSF TP #2, CSFCCDIFF #2, CSF PCR PANEL, GS, AERC, CSF GLU, CSF GLU #2 #### [address] Monocytes/100 WBC (Bld) 9.4 % Normal . [facility] Comment on above: Performed By: #### C SFCCDIFF, CSF TP, CSF TP #2, CSFCCDIFF #2, CSF PCR PANEL, GS, AERC, CSF GLU, CSF GLU #2 #### [facility] [address] Neutrophils (Bld) [#/Vol] 3.1 10*3/uL Normal 1.8-7.7 [facility] Comment on above: Performed By: #### C SFCCDIFF, CSF TP, CSF TP #2, CSFCCDIFF #2, CSF PCR PANEL, GS, AERC, CSF GLU, CSF GLU #2 #### [facility] [address] Neutrophils/100 WBC (Bld) 45.7 % Normal . [facility] Comment on above: Performed By: #### C SFCCDIFF, CSF TP, CSF TP #2, CSFCCDIFF #2, CSF PCR PANEL, GS, AERC, CSF GLU, CSF GLU #2 #### [facility] [address] NRBC% 0.3 /100{WBC} Normal 0-0.5 [facility] Comment on above: Performed By: #### C SFCCDIFF, CSF TP, CSF TP #2, CSFCCDIFF #2, CSF PCR PANEL, GS, AERC, CSF GLU, CSF GLU #2 #### [address] Platelet mean volume (Bld) [Entitic vol] 9.5 fL Normal 6.3-10.7 [facility] Comment on above: Performed By: #### C SFCCDIFF, CSF TP, CSF TP #2, CSFCCDIFF #2, CSF PCR PANEL, GS, AERC, CSF GLU, CSF GLU #2 #### [place] [address] [place] Platelets (Bld) [#/Vol] 242 10*3/uL Normal 150-450 [facility] Comment on above: Performed By: #### C SFCCDIFF, CSF TP, CSF TP #2, CSFCCDIFF #2, CSF PCR PANEL, GS, AERC, CSF GLU, CSF GLU #2 #### [address] RBC (Bld) [#/Vol] 4.54 10*6/uL Normal 3.60-5.00 [facility] Comment on above: Performed By: #### C SFCCDIFF, CSF TP, CSF TP #2, CSFCCDIFF #2, CSF PCR PANEL, GS, AERC, CSF GLU, CSF GLU #2 #### [facility] [address] WBC (Bld) [#/Vol] 6.9 10*3/uL Normal 3.8-11.6 [facility] Comment on above: Performed By: #### C SFCCDIFF, CSF TP, CSF TP #2, CSFCCDIFF #2, CSF PCR PANEL, GS, AERC, CSF GLU, CSF GLU #2 #### [address] Erythrocyte Sedimentation Ra amanda 06-03-2022 ESR (Bld) [Velocity] 26 mm/h High 0-[address] [facility] Comment on above: Result Comment: PERF ORMED BY: [place] [address] PATHOLOGIST JUNIOR HIGH MATH TEACHER SUMEET GONZALEZ M.D. Performed By: #### C SFCCDIFF, CSF TP, CSF TP #2, CSFCCDIFF #2, CSF PCR PANEL, GS, AERC, CSF GLU, CSF GLU #2 #### [address] Free T4 (Free Thyroxine)on 0 06-03-2022 Free T4 [Mass/Vol] 0.96 ng/dL Normal 0.61-1.12 [facility] Comment on above: Performed By: #### C SFCCDIFF, CSF TP, CSF TP #2, CSFCCDIFF #2, CSF PCR PANEL, GS, AERC, CSF GLU, CSF GLU #2 #### [address] Hepatic Panelon 06-03-2022 Albumin [Mass/Vol] 3.5 g/dL Normal 3.2-5.5 [facility] Comment on above: Performed By: #### C SFCCDIFF, CSF TP, CSF TP #2, CSFCCDIFF #2, CSF PCR PANEL, GS, AERC, CSF GLU, CSF GLU #2 #### [address] Albumin/Globulin [Mass ratio] 0.9 {ratio} Normal [facility] Comment on above: Performed By: #### C SFCCDIFF, CSF TP, CSF TP #2, CSFCCDIFF #2, CSF PCR PANEL, GS, AERC, CSF GLU, CSF GLU #2 #### [facility] [address] ALP [Catalytic activity/Vol] 60 U/L Normal 32-92 [facility] Comment on above: Performed By: #### C SFCCDIFF, CSF TP, CSF TP #2, CSFCCDIFF #2, CSF PCR PANEL, GS, AERC, CSF GLU, CSF GLU #2 #### [facility] [address] ALT [Catalytic activity/Vol] 26 U/L Normal 1060 [facility] Comment on above: Performed By: #### C SFCCDIFF, CSF TP, CSF TP #2, CSFCCDIFF #2, CSF PCR PANEL, GS, AERC, CSF GLU, CSF GLU #2 #### [address] AST [Catalytic activity/Vol] 31 U/L Normal 10 [facility] Comment on above: Performed By: #### C SFCCDIFF, CSF TP, CSF TP #2, CSFCCDIFF #2, CSF PCR PANEL, GS, AERC, CSF GLU, CSF GLU #2 #### [address] Bilirubin [Mass/Vol] 0.9 mg/dL Normal 0.3-1.[address] [facility] Comment on above: Performed By: #### C SFCCDIFF, CSF TP, CSF TP #2, CSFCCDIFF #2, CSF PCR PANEL, GS, AERC, CSF GLU, CSF GLU #2 #### [address] Bilirubin,Indirect 0.7 mg/dL Normal [facility] Comment on above: Performed By: #### C SFCCDIFF, CSF TP, CSF TP #2, CSFCCDIFF #2, CSF PCR PANEL, GS, AERC, CSF GLU, CSF GLU #2 #### [address] Bilirubin.indirect [Mass/Vol] 0.2 mg/dL Normal 0.0-0.4 [facility] Comment on above: Performed By: #### C SFCCDIFF, CSF TP, CSF TP #2, CSFCCDIFF #2, CSF PCR PANEL, GS, AERC, CSF GLU, CSF GLU #2 #### [facility] [address] Globulin (S) [Mass/Vol] 3.7 g/dL Normal [facility] Comment on above: Performed By: #### C SFCCDIFF, CSF TP, CSF TP #2, CSFCCDIFF #2, CSF PCR PANEL, GS, AERC, CSF GLU, CSF GLU #2 #### [facility] [address] Protein [Mass/Vol] 7.2 g/dL Normal 6.1-7.9 [facility] Comment on above: Performed By: #### C SFCCDIFF, CSF TP, CSF TP #2, CSFCCDIFF #2, CSF PCR PANEL, GS, AERC, CSF GLU, CSF GLU #2 #### [facility] [address] MR thoracic spine wo/w conon 06-03-2022 MR thoracic spine wo/w con [facility] [place] [address] MRI Report Signed with Addenda Patient: Heena Wang MR#: [id number] 5 : 2005 Acct:[id number] Age/Sex: 17 / F ADM Date: 06/02/22 Loc: Room: [address] [place] [address] Type: ADM IN Attending Dr: Ravi Zhang DO Copies to: Ravi Zhang DO Ordering Provider: Ravi Zhang DO Date of Service: 06/03/22 MR/MR thoracic spine wo/w con: paresthesias from umbilicus to toes ADDENDUM 1 Bilateral central increased signal T2 changes of the lower thoracic cord identified. Impression dictated by: Jamie Wheatley M.D.06/04/2022 2:19 PM Dictation Location: [place] [address] Addendum Dictated By: Jamie Wheatley DO Addendum [...] Jamie Wheatley M.D.06/03/2022 1:48 PM Dictation Location: [place] [address] Transcribed By: [facility] 06/03/22 1348 Dictated By: Jamie Wheatley DO 06/03/22 1342 Signed By: 06/03/22 1348 Normal [facility] Magnesiumon 06-03-2022 Magnesium [Mass/Vol] 2.1 mg/dL Normal 1.6-2.[address] [facility] Comment on above: Performed By: #### C SFCCDIFF, CSF TP, CSF TP #2, CSFCCDIFF #2, CSF PCR PANEL, GS, AERC, CSF GLU, CSF GLU #2 #### [address] Partial Thromboplastin Timeo n 06-03-2022 aPTT Coag (Bld) [Time] 31.4 s Normal 25.1-36.5 [facility] Comment on above: Result Comment: PERF ORMED BY: [place] [address] PATHOLOGIST JUNIOR HIGH M[employer] TEACHER SUMEET GONZALEZ M.D. Performed By: #### C SFCCDIFF, CSF TP, CSF TP #2, CSFCCDIFF #2, CSF PCR PANEL, GS, AERC, CSF GLU, CSF GLU #2 #### [place] [id number] [facility] Phosphoruson 06-03-2022 Phosphate [Mass/Vol] 3.8 mg/dL Normal 2.5-4.[address] [facility] Comment on above: Performed By: #### C SFCCDIFF, CSF TP, CSF TP #2, CSFCCDIFF #2, CSF PCR PANEL, GS, AERC, CSF GLU, CSF GLU #2 #### [address] Prothrombin Time INRon 06-03 INR Coag (PPP) [Relative time] 1.2 {INR} Normal [facility] Comment on above: Result Comment: INR [...] AERC, CSF GLU, CSF GLU #2 #### [address] PT Coag (PPP) [Time] 13.8 s High 9.0-12.[address] [facility] Comment on above: Performed By: #### C SFCCDIFF, CSF TP, CSF TP #2, CSFCCDIFF #2, CSF PCR PANEL, GS, AERC, CSF GLU, CSF GLU #2 #### [address] Thyroid Stimulating Hormoneo n 06-03-2022 TSH Qn 0.85 m[IU]/L Normal 0.45-5.33 [facility] Comment on above: Result Comment: PERF ORMED BY: [place] [address] PATHOLOGIST JUNIOR HIGH M[employer] TE[employer]ER SUMEET GONZALEZ M.D. Performed By: #### C SFCCDIFF, CSF TP, CSF TP #2, CSFCCDIFF #2, CSF PCR PANEL, GS, AERC, CSF GLU, CSF GLU #2 #### [address] Thyroxine (T4) Totalon 06-03 T4 [Mass/Vol] 9.70 ug/dL Normal 5.39-11.82 [facility] Comment on above: Performed By: #### C SFCCDIFF, CSF TP, CSF TP #2, CSFCCDIFF #2, CSF PCR PANEL, GS, AERC, CSF GLU, CSF GLU #2 #### [address] Vit. B12/Folate Profileon Cobalamin (Vitamin B12) [Mass/Vol] 368 pg/mL Normal 180-914 [facility] Comment on above: Performed By: #### C SFCCDIFF, CSF TP, CSF TP #2, CSFCCDIFF #2, CSF PCR PANEL, GS, AERC, CSF GLU, CSF GLU #2 #### [address] Folate 16.6 ng/mL Normal >5.9 [facility] Comment on above: Result Comment: Jessy te reference range: >5.9 ng/ml The WHO technical consultation on folate and vitamin b12 deficiencies has determined that folate concentrations less than 4 ng/ml are considered deficient. Performed By: #### C SFCCDIFF, CSF TP, CSF TP #2, CSFCCDIFF #2, CSF PCR PANEL, GS, AERC, CSF GLU, CSF GLU #2 #### [address] Albumin [Mass/volume] in Ser um or PlasmaOrdered By: Ravi Zhang on 06-02-2022 Albumin [Mass/Vol] 3.5 g/dL 3.2-5.5 [facility] C reactive protein [Mass/vol ume] in Serum or PlasmaOrdered By: Ravi Zhang on 06-02-2022 CRP [Mass/Vol] 0.6 mg/dL 0.0-1.0 [facility] Direct bilirubin measurement Ordered By: aRvi Zhang on 06-02-2022 Bilirubin.direct [Mass/Vol] 0.2 mg/dL 0.0-0.4 [facility] Erythrocyte sedimentation ra te by Photometric methodOrdered By: Ravi Zhang on 06-02-2022 ESR Photometric method (Bld) [Velocity] 26 mm/hr 0-19 [facility] Folate [Mass/volume] in Seru m or PlasmaOrdered By: Ravi Zhang on 06-02-2022 Folate [Mass/Vol] 16.6 ng/mL >5.9 [facility] Comment on above: Folate reference ran ge: >5.9 ng/mlThe WHO technical consultation on folate and vitamin [id number] has determined that folate concentrations lessthan 4 ng/ml are considered deficient. Globulin Calc (S) [Mass/Vol] Ordered By: Ravi Zhang on 06-02-2022 Globulin (S) [Mass/Vol] 3.7 g/dL [facility] Glucose mean value [Mass/vol ume] in Blood Estimated from glycated hemoglobinOrdered By: Ravi Zhang on 06-02-2022 Average glucose Estimated from glycated hemoglobin (Bld) [Mass/Vol] 103 mg/dL [facility] Hemoglobin A1c percentageOrd ered By: Ravi Zhang on 06-02-2022 HbA1c (Bld) [Mass fraction] 5.2 % 4.3-5.6 [facility] Comment on above: Increased risk for d iabetes: 5.7 - 6.4diabetes: >6.4glycemic control for adults with diabetes: <7.0 Laboratory - Chemistry and C hemistry - challengeOrdered By: Ravi Zhang on 06-02-2022 Cobalamin (Vitamin B12) [Mass/Vol] 368 pg/mL 180-914 [facility] Magnesium [Mass/Vol] 2.1 mg/dL 1.6-2.[address] [facility] Phosphate [Mass/volume] in S [place] or PlasmaOrdered By: Ravi Zhang on 06-02-2022 Phosphate [Mass/Vol] 3.8 mg/dL 2.5-4.[address] [facility] Protein [Mass/volume] in Ser um or PlasmaOrdered By: Ravi Zhang on 06-02-2022 Protein [Mass/Vol] 7.2 g/dL 6.1-7.9 [facility] Serum or plasma alanine hooper otransferase measurement without P-5'-P (enzymatic activiOrdered By: Ravi Zhang on 06-02-2022 ALT No additional P-5'-P [Catalytic activity/Vol] 26 U/L 10-60 [facility] Serum or plasma albumin/glob ulin mass ratioOrdered By: Ravi Zhang on 06-02-2022 Albumin/Globulin [Mass ratio] 0.9 {ratio} [facility] Serum or plasma alkaline keven sphatase measurement (enzymatic activity/volume)Ordered By: Ravi Zhang on 06-02-2022 ALP [Catalytic activity/Vol] 60 U/L 32-92 [facility] Serum or plasma aspartate am inotransferase measurement (enzymatic activity/volume)Ordered By: Ravi Zhang on 06-02-2022 AST [Catalytic activity/Vol] 31 U/L 10-42 [facility] Serum or plasma non-glucuron idated bilirubin measurement (mass/volume)Ordered By: Ravi Zhang on 06-02-2022 Bilirubin.indirect [Mass/Vol] 0.7 mg/dL [facility] Serum or plasma thyroxine (T 4) measurement (mass/volume)Ordered By: Ravi Zhang on 06-02-2022 T4 [Mass/Vol] 9.70 ug/dL 5.39-11.82 [facility] Serum or plasma total biliru bin measurement (mass/volume)Ordered By: Ravi Zhang on 06-02-2022 Bilirubin [Mass/Vol] 0.9 mg/dL 0.3-1.[address] [facility] TSH DL <= 0.005 mIU/L QnOrde red By: Ravi Zhang on 06-02-2022 TSH Qn 0.85 m[IU]/L 0.45-5.33 [facility] Thyroxine (T4) free [Mass/vo lume] in Serum or PlasmaOrdered By: Ravi Zhang on 06-02-2022 Free T4 [Mass/Vol] 0.96 ng/dL 0.61-1.12 [facility] MICRO OTHER TESTSOrdered By: Sree Reeves on 11-24-2021 Rapid COV Int NEG Ctl Pass (11/24/21 10:53 AM) Normal [facility] Man UA SS Rapid COV Int POS Ctl Pass (11/24/21 10:53 AM) Normal [facility] Man UA SS SARS-CoV-2 (COVID-19) RNA TERESA+probe Ql (Unsp spec) Not Detected (11/24/21 10:53 AM) Normal Not Detected [facility] Man UA SS Vital Signs Date Time Vital Sign Value Performing Clinician Facility 04-08-2024 18:25-0500 Body mass index (BMI) [Ratio] 26.54 kg/m2 Samra Rainsville DO Work Phone: [facility] 04-08-2024 18:25-0500 Body temperature 98.2 [degF] Samra Rainsville DO Work Phone: [facility] 04-08-2024 18:25-0500 Body weight 83.92 kg Samra Rainsville DO Work Phone: [facility] 04-08-2024 18:25-0500 Diastolic blood pressure 78 mm[Hg] Samra Rainsville DO Work Phone: [facility] 04-08-2024 18:25-0500 Heart rate 103 /min Samra Rainsville DO Work Phone: [facility] 04-08-2024 18:25-0500 SaO2% (BldA) [Mass fraction] 98 % Samra Rainsville DO Work Phone: [facility] 04-08-2024 18:25-0500 Systolic blood pressure 118 mm[Hg] Samra Irvin DO Work Phone: [facility] [facility] 02-11-2024 10:00-0400 Body height 177.8 cm [facility] Work Phone: [facility] 02-11-2024 10:00-0400 Body mass index (BMI) [Ratio] 26.4 kg/m2 [facility] Work Phone: [facility] 02-11-2024 10:00-0400 Body weight 83.46 kg [facility] Work Phone: [facility] 10-28-2023 11:24-0400 Body temperature 98.42 [degF] Rupert Soriano [facility] 10-28-2023 11:24-0400 Diastolic blood pressure 73 mm[Hg] Rupert Soriano [facility] 10-28-2023 11:24-0400 Heart rate 95 /min Rupert Soriano [facility] 10-28-2023 11:24-0400 Respiratory rate 16 /min Rupert Soriano [facility] 10-28-2023 11:24-0400 SaO2% (BldA) [Mass fraction] 100 % Rupert Soriano [facility] 10-28-2023 11:24-0400 Systolic blood pressure 131 mm[Hg] Rupert Soriano [facility] 03-02-2023 11:25-0400 Body height 176.53 cm Racheal Greenberg Other [employer] Other 03-02-2023 11:25-0400 Body mass index (BMI) [Ratio] 28.31 kg/m2 Racheal Greenberg Other [employer] Other 03-02-2023 11:25-0400 Body temperature 98.2 [degF] Racheal Greenberg Other [employer] Other 03-02-2023 11:25-0400 Body weight 88.23 kg Racheal Greenberg Other [employer] Other 03-02-2023 11:25-0400 Respiratory rate 18 /min Racheal Greenberg Other [employer] Other 03-02-2023 11:25-0400 SaO2% (BldA) [Mass fraction] 99 % Racheal Greenberg Other [employer] Other 01-07-2023 11:18-0400 Body height 182.88 cm HOUSEPERSON Morro EasterbCODE Work Phone: [facility] 01-07-2023 11:18-0400 Body temperature 98.7 [degF] HOUSEPERSON Morro Easterwood Work Phone: [facility] 01-07-2023 11:18-0400 Body weight 87.85 kg HOUSEPERSON Morro Easterwood Work Phone: [facility] 01-07-2023 11:18-0400 Diastolic blood pressure 93 mm[Hg] HOUSEPERSON Morro Easterwood Work Phone: [facility] 01-07-2023 11:18-0400 Heart rate 102 /min HOUSEPERSON Morro Easterwood Work Phone: [facility] 01-07-2023 11:18-0400 Respiratory rate 20 /min HOUSEPERSON Morro Easterwood Work Phone: [facility] 01-07-2023 11:18-0400 SaO2% (BldA) [Mass fraction] 99 % HOUSEPERSON Morro Easterwood Work Phone: [facility] 01-07-2023 11:18-0400 Systolic blood pressure 146 mm[Hg] HOUSEPERSON Morro Beyererwood Work Phone: [facility] 06-15-2022 08:13-0500 Blood Pressure Location Iman Lue [facility] 06-15-2022 08:13-0500 Diastolic blood pressure 88 mm[Hg] Iman Lue [facility] 06-15-2022 08:13-0500 Heart rate 93 /min Iman Lue [facility] 06-15-2022 08:13-0500 Systolic blood pressure 125 mm[Hg] Iman Lue [facility] 06-15-2022 08:13-0500 weight 1.73 Iman Lue [facility] Comment on above: Result Comment: ^~:!ZScore Source -[facility] 06-15-2022 08:13-0500 Weight Percentile 95.83 % Iman Lue [facility] Comment on above: Result Comment: ^~:!Percentile Source -[facility] 06-14-2022 14:00-0500 Body height 176.53 cm Morro [employer] Other [employer] [facility] [employer] Other 06-14-2022 14:00-0500 Body mass index (BMI) [Ratio] 26.49 kg/m2 [address] Other [employer] Other 06-14-2022 14:00-0500 Body temperature 98.4 [degF] [address] Other [employer] Other 06-14-2022 14:00-0500 Body weight 82.56 kg Morro Hauser Other [employer] Other 06-14-2022 14:00-0500 Diastolic blood pressure 82 mm[Hg] Morro Hauser Other [employer] Other 06-14-2022 14:00-0500 Respiratory rate 20 /min Morro Hauser Other [employer] Other 06-14-2022 14:00-0500 SaO2% (BldA) [Mass fraction] 98 % Morro Hauser Other [employer] Other 06-14-2022 14:00-0500 Systolic blood pressure 120 mm[Hg] Morro OlmosbCODE Other [employer] Other 06-09-2022 17:36-0500 Body temperature 97.8 [degF] DO Ravi Lindbloom Work Phone: [facility] 06-09-2022 17:36-0500 Diastolic blood pressure 65 mm[Hg] DO Ravi Lindbloom Work Phone: [facility] 06-09-2022 17:36-0500 Heart rate 78 /min DO Ravi Lindbloom Work Phone: [facility] 06-09-2022 17:36-0500 Respiratory rate 18 /min DO Ravi Lindbloom Work Phone: [facility] 06-09-2022 17:36-0500 SaO2% (BldA) [Mass fraction] 96 % DO Ravi Lindbloom Work Phone: [facility] 06-09-2022 17:36-0500 Systolic blood pressure 129 mm[Hg] DO Ravi Lindbloom Work Phone: [facility] 06-09-2022 03:16-0500 Body weight 83.2 kg DO Ravi Zhang Work Phone: [facility] 06-06-2022 13:58-0500 Body height 187.96 cm DO Ravi Zhang Work Phone: [facility] 05-24-2022 15:07-0500 Blood Pressure Location Loreto DONALDSON [facility] 05-24-2022 15:07-0500 Body temperature 98.06 [degF] Loreto LOMAXLEY [facility] 05-24-2022 15:07-0500 bodymassindex 0.85 Loreto DONALDSON [facility] Comment on above: Result Comment: ^~:!ZScore [facility] 05-24-2022 15:07-0500 Diastolic blood pressure 70 mm[Hg] Loreto DONALDSON [facility] 05-24-2022 15:07-0500 Heart rate 72 /min Loreto DONALDSON [facility] 05-24-2022 15:07-0500 Height/Length Percentile 99.82 Loreto DONALDSON [facility] Comment on above: Result Comment: ^~:!Percentile Source -[facility] 05-24-2022 15:07-0500 Height/Length Z-Score 2.91 Loreto DONALDSON [facility] Comment on above: Result Comment: ^~:!ZScore Source [facility] 05-24-2022 15:07-0500 SaO2% (BldA) [Mass fraction] 99 % Loreto DONALDSON [facility] 05-24-2022 15:07-0500 Systolic blood pressure 110 mm[Hg] Loreto DONALDSON [facility] 05-24-2022 15:07-0500 weight 1.68 Loreto DONALDSON [facility] Comment on above: Result Comment: ^~:!ZScore Source -[facility] 05-24-2022 15:07-0500 Weight Percentile 95.39 % Loreto DONALDSON [facility] Comment on above: Result Comment: ^~:!Percentile Source -[facility] 01-05-2022 09:00-0400 Body height 176.[address] Other [employer] Other 01-05-2022 09:00-0400 Body mass index (BMI) [Ratio] 26.34 kg/m2 [address] Other [employer] Other 01-05-2022 09:00-0400 Body temperature 98 [degF] Morro [employer] Other [employer] Other 01-05-2022 09:00-0400 Body weight 82.1 kg Morro [employer] Other [employer] Other 01-05-2022 09:00-0400 Diastolic blood pressure 78 mm[Hg] Morro Easterwood Other [employer] Other 01-05-2022 09:00-0400 Respiratory rate 20 /min Morro [employer] Other [employer] Other 01-05-2022 09:00-0400 SaO2% (BldA) [Mass fraction] 99 % Morro [employer]er[employer] Other [employer] Other 01-05-2022 09:00-0400 Systolic blood pressure 120 mm[Hg] Morro Easterwood Other [employer] Other 11-22-2021 11:30-0400 Body height 176.53 cm Morro Easterwood Other [employer] Other 11-22-2021 11:30-0400 Body mass index (BMI) [Ratio] 25.62 kg/m2 Morro Easterwood Other [employer] Other 11-22-2021 11:30-0400 Body temperature 98.1 [degF] Morro Easterwood Other [employer] Other 11-22-2021 11:30-0400 Body weight 79.83 kg Morro Easterwood Other [employer] Other 11-22-2021 11:30-0400 Diastolic blood pressure 80 mm[Hg] Morro Easterwood Other [employer] Other 11-22-2021 11:30-0400 Respiratory rate 20 /min Morro Easterwood Other [employer] Other 11-22-2021 11:30-0400 SaO2% (BldA) [Mass fraction] 99 % Morro Easterwood Other [employer] Other 11-22-2021 11:30-0400 Systolic blood pressure 120 mm[Hg] Morro Easterwood Other [employer] Other 09-13-2021 15:00-0400 Body height 176.53 cm Morro Hauser Other [employer] Other 09-13-2021 15:00-0400 Body mass index (BMI) [Ratio] 25.76 kg/m2 Morro Hauser Other [employer] Other 09-13-2021 15:00-0400 Body temperature 98.4 [degF] Morro Hauser Other [employer] Other 09-13-2021 15:00-0400 Body weight 80.29 kg Morro Hauser Other [employer] Other 09-13-2021 15:00-0400 Diastolic blood pressure 70 mm[Hg] Morro Hauser Other [employer] Other 09-13-2021 15:00-0400 Respiratory rate 20 /min Morro Hauser Other [employer] Other 09-13-2021 15:00-0400 SaO2% (BldA) [Mass fraction] 98 % Morro Hauser Other [employer] Other 09-13-2021 15:00-0400 Systolic blood pressure 108 mm[Hg] Morro Hauser Other [employer] Other Encounters Encounter Date Encounter Type Care Provider Facility Start: 04-15-2024 End: 04-15-2024 Office outpatient visit 15 minutes Benji Leung DO Work Phone: [facility] Comment on above: Encounter for survei llance of other contraceptive Start: 04-08-2024 End: 04-08-2024 ambulatory SAMRA IRVIN Not Available Start: 04-08-2024 End: 04-08-2024 Office outpatient visit 15 minutes Samra Rodriguez [place] DO Work Phone: [facility] Comment [...] End: 11-28-2023 Patient encounter procedure Sampson Ayala [facility] Start: 11-12-2023 End: 11-12-2023 ambulatory SAMPSON AYALA Not Available Start: 10-28-2023 End: 10-28-2023 Emergency department patient visit Rupert Soriano [facility] Start: 03-02-2023 End: 03-02-2023 ambulatory Racheal Greenberg Other [employer] Other Start: 03-02-2023 Office outpatient vi sit 15 minutes Racheal Greenberg [facility] Start: 01-07-2023 End: 01-07-2023 Emergency department patient visit Morro Hauser Facility:[facility] Start: 01-07-2023 End: 01-07-2023 Emergency department patient visit HOUSEPERSON Morro Hauser Work Phone: [facility] Work Phone: Start: 11-15-2022 End: 11-25-2022 Pre-admission assessment Carlin Fuentes [facility] Start: 08-16-2022 End: 08-16-2022 ambulatory Morro Hauser Other [employer] Other Start: 08-16-2022 [facility] Start: 07-03-2022 End: 07-04-[address] JOSÉ MIGUEL LAM Facility: Start: 06-15-2022 End: 06-15-2022 Patient encounter procedure Iman Gomez [facility] Start: 06-14-2022 End: 06-14-2022 ambulatory Morro Hauser Other [employer] Other Start: 06-14-2022 [facility] Start: 06-09-2022 End: 06-09-2022 ambulatory Morro Hauser Other [employer] Other Start: 06-09-2022 Telephone encounter Morro [facility] Start: 06-02-2022 End: 06-09-2022 Evaluation and management of inpatient Kt Pearson Facility:[facility] Start: 06-02-2022 End: 06-09-2022 Evaluation and management of inpatient DO Ravi Zhang Work Phone: [facility] Work Phone: Start: 05-24-2022 End: 05-24-2022 Patient encounter procedure Loreto DONALDSON [facility] Start: 01-05-2022 End: 01-05-2022 ambulatory Morro Easterwood Other [employer] Other Start: 01-05-2022 Office outpatient vi sit 15 minutes Morro Easterwood [facility] Start: 11-24-2021 End: 11-24-2021 ambulatory Morro Easterwood Other [employer] Other Start: 11-24-2021 Telephone encounter Morro Pepitoerwood [facility] Start: 11-24-2021 End: 02-22-2022 Recurring MORRO EASTERWOOD [facility] Start: 11-22-2021 End: 11-22-2021 ambulatory Morro Easterwood Other [employer] Other Start: 11-22-2021 Office outpatient vi sit 15 minutes Morro Easterwood [facility] Start: 09-13-2021 End: 09-13-2021 ambulatory Morro Easterwood Other [employer] Other Start: 09-13-2021 Office outpatient vi sit 15 minutes Morro Easterwood [facility] Procedures Date Procedure Procedure Detail Performing [...] EST Office Visit [facility] [address] [place] [id number] Benji Leung DO [address] [place] [address] [facility] Start: 02-11-2024 End: 02-11-2024 Patient encounter procedure 02/11/2024 10:00 AM EDT Office Visit [facility] [address] [place] [id number] Sampson Ayala PA [address] [place] [address] Arrived [facility] Comment on above: Arrived Start: 06-09-2022 [facility] Start: 06-06-2022 Referral to infectio us diseases physician [facility] Start: 06-05-2022 Borrelia burgdorferi DNA assay [facility] Start: 06-05-2022 End: 06-05-2022 [facility] Start: 06-05-2022 [facility] Start: 06-04-2022 Referral to sample collector [facility] Start: 06-04-2022 Referral to urologist Zehra [facility] Start: 06-02-[address] [facility] Start: 06-02-2022 Referral to neurologist [facility] IgG [Mass/volume] in Serum or Plasma [facility] Patient Education [facility] Work Phone: Patient referral [facility] Work Phone: Protein fractions.oligoclonal bands.intrathecal [Presence] in Serum and CSF [facility] URINARY TRACT INFECT ION (HTRX) URINARY TRACT INFECTION (HTRX) Lab Routine Dysuria Ordered: 04/08/2024 [facility] Work Phone: Comment on above: Ordered: 04/08/2024 Payers Date Payer Category Payer Medicaid [id number] 2022 Medicaid [id number] 2022 Self-pay [id number] 2022 Unknown [id number] 2.1 [id number] 2003 Unknown [id number] 2.16.84 [id number] 2003 Unknown [id number] 2.16.8 [id number] 2003 Unknown [id number] 2.16.84 [id number] 2003 Unknown [id number] 2.16.84 [id number] 2003 Unknown [id number] 2.16.84 [id number] 2003 Unknown [id number] 2.16.84 [id number] 2003 Unknown [id number] 2.16.84 [id number] Unknown [id number] 2.16.8 [id number] Unknown [id number] 2.16.8 [id number] Social History Date Type Detail Facility Start: 12-06-2023 End: 02-11-2024 Sex Assigned At [employer] Other Start: 07-01-2020 End: 12-22-2022 Tobacco smoking status Never smoked tobacco (finding) [facility] Tobacco smoking status Never [facility] Start: 2005 Sex Assigned At Female [facility] Start: 12-22-2022 Tobacco use and exposure Smokeless tobacco non-user [facility] Start: 02-11-2024 End: 04-08-2024 Alcoholic beverage intake Lifetime non-drinker (finding) [facility] Start: 12-06-2023 End: 02-11-2024 History of Social function [facility] Start: 12-22-2022 Alcohol Comment Caffeine: 1-2 cups/day tea, chocolate [facility] Start: 12-24-2022 Gender identity Identifies as female gender (finding) [facility] Start: 12-24-2022 Sexual orientation Heterosexual (finding) [facility] Functional Status Date Assessment Result Facility 10-28-2023 Functional Status N/A [facility] 06-15-2022 Functional Status N/A [facility] 06-09-2022 Functional status Patient at Baseline [facility] Work Phone: 05-24-2022 Functional Status N/A [facility] Mental Status Date Assessment Result Facility 06-09-2022 Cognitive function Cognitive Sta tus Patient at Baseline [facility] Work Phone: Clinical Notes 09-13-2021 to 04-15-2024 Su Emery, ONLINE MARKETING ANALYST - 04/15/2024 10:20 AM Asif Irvin DO [...] Maternal Grandmother Aure Starr Cancer Maternal Grandmother Aure Starr Cancer Maternal Grandfather Stepan Wang Cancer Paternal Grandmother Izzy Gutiérrez SURGICAL HISTORY Past Surgical History: Procedure Laterality Date INNER EAR SURGERY 2005 tubes in ears KNEE CARTILAGE SURGERY Right 02/01/2024 Arthroscopy w/ MTP @ [facility] OTHER SURGICAL HISTORY 2005 adnoidectomy REVIEW [...] nursing note reviewed. Exam conducted with a materials handler present. Vitals: Estimated body mass index is [...] Benji Leung DO documented in this encounter [facility] 04-08-2024 History of Presen t illness Narrative Images from the original note were not included. [address] , [address] [facility], [address] P: [phone] F: [phone] HPI Historian of [facility]: patient Heena Wang is a 18 y.o. [...] capsule; Refill: 0 documented in this encounter [facility] 02-11-2024 History of Presen t illness Narrative [...] use for discomfort. documented in this encounter [facility] 02-11-2024 Instructions DANNI Judd - 02/11/2024 10:00 [...] use for discomfort. documented in this encounter [facility] 10-28-2023 Hospital Discharg e instructions Patient Education [...] sitting or lying down. General instructions Take vsjs-uim-dysmeyu and prescription medicines only as told by [...] provider. Document Revised: 08/14/2022 Document Reviewed: 03/26/2020 [employer] Patient Education 2022 [employer] 10/28/2023 12:35:22 How to Use a [...] provider. Document Revised: 02/10/2022 Document Reviewed: 02/10/2022 [employer] Patient Education 2022 [employer] 10/28/2023 12:35:22 Radial Nerve Palsy Radial [...] provider. Document Revised: 06/29/2021 Document Reviewed: 06/29/2021 [employer] Patient Education 2022 [employer] 10/28/2023 12:35:22 Crutch Use, Adult, Epnk-zq-Ljsc Crutch Use, Adult Crutches are used to [...] you. Keep your weight over the hand automotive specialty technician. 3.Bring the good leg forward to meet the crutches or to land a little bit ahead of them. 4.Repeat. Going up steps If there is no handrail: 1.Walk up to steps and put weight on hand automotive specialty technician to step up. 2.Step up with your [...] provider. Document Revised: 11/26/2019 Document Reviewed: 11/26/2019 [employer] Patient Education 2022 [employer] Follow Up Care 10/28/2023 11:08:54 With:Rayne Rivera Address: [address] [place] [phone] Business (1) When:10/31/2023 12:11:58 With:MORRO HAUSER Address: [address] [place] [phone] Business (1) When:Within 3 Day(s) [facility] 03-02-2023 Evaluation note Encounter Date Diagnosis Assessment [...] 3 days. May return to work tomorrow [employer] Other 01-26-2023 Hospital Discharge instructions Patient Education 06/15/2022 09:22:12 Acute Urinary Retention, Female, Mtnj-ra-Fnkj Acute Urinary Retention, Female Acute urinary retention means that you cannot pee (urinate) at all, or that you pee too little and your bladder is not emptied completely. If it is not treated, it can lead to kidney damage or other serious problems. Follow these instructions at home: Take yaqf-eqp-ydjshlq and prescription medicines only as told by [...] 10/23/2008 Document Revised: 04/19/2018 Document Reviewed: 06/08/2017 [employer] Patient Education 2020 [employer] Follow Up Care 06/07/2022 11:50:23 With:Jason COELHO, VALDEMAR Xavier, URO Address: When: Unknown [facility] 01-25-2023 Evaluation note* Encounter Date Diagnosis [...] Trujillo who her mom mother also sees. Nicole is aware that the referral will be [...] of care between Inpatient setting and outpatient [facility] office. Mother confirms that she did schedule [...] that were not corrected during review process. [employer] Other 01-20-2023 Progress note Author Kt Pearson [facility] June 09, 2022 3:41pm Note Date/Time June 09, 2022 3 :42pm [facility] [address] [place] [address] Neurology Progress Note Signed Patient: Heena Wang MR#: [id number] : 2005 Acct:[id number] Age/Sex: 17 / F Adm Date: 3 Loc: 3T Room: [address] [place] [address] Type: ADM IN Attending Dr: Melo Diana [...] she went to get checked out at [facility] She was also experiencing tingling paresthesias that [...] signed by Kt Pearson DO> 06/09/22 1541 [facility] Work Phone: 1(916) 805-204801-19-2023 Progress note Author Kt Pearson [facility] June 08, 2022 3:35pm Note Date/Time June 08, 2022 7 :41am [facility] [address] [place] [address] Neurology Progress Note Signed Patient: Heena Wnag MR#: [id number] : 2005 Acct:[id number] Age/Sex: 17 / F Adm Date: 3 Loc: Room: [address] [place] [address] Type: ADM IN Attending Dr: Melo Diana [...] level noted with pinprick CEREBELLAR EXAM: * Ixdxvg-lu-rlyw and alternating movements are intact and normal in bilateral upper extremities * Jfel-xi-cfgh and alternating movements are intact and normal [...] she went to get checked out at [facility] She was also experiencing tingling paresthesias that [...] 1535 <Electronically signed by RHIANNON Avery> 06/08/[address] [place] [address] Ctr Work Phone: 1(951) 115-913401-19-2023 Progress note Author Melo Diana [facility] June 08, 2022 10:23am Note Date/Time June 08, 2022 1 0:11am [facility] [address] [place] [address] Hospitalist Progress Note Signed Patient: Heena Wagn MR#: [id number] : 2005 Acct:[id number] Age/Sex: 17 / F Adm Date: 3 Loc: 3T Room: [address] [place] [address] Type: ADM IN Attending Dr: Melo Diana [...] 18:05 06/06/22 18:10 Bisacodyl 10 Mg Supp.Rect CO 06/06/23 18:04 10 mg DAILY PRN Administration [...] Rodas catheter placement, and 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 Paresthesias have improved more significantly today. Suspect an autoimmune or demyelinating process given findings on MRI brain in cervical and thoracic spine. Unclear how much patient's neurologic complaints are related to this Herpes WATCH CRYSTAL EDGE GRINDER infection. Lumbar puncture results: Lymphocytic pleocytosis, +HSV2 [...] than 0.2, Zamora IgG less than 0.2, ECONOMIC ANALYST 0.2, scleroderma 0.2, Anti-MOG pending. -CSF [...] signed by Melo Diana MD> 06/08/22 1023 [facility] Work Phone: 1(863) 430-190101-19-2023 Progress note Author Melo Diana [facility] June 07, 2022 10:30pm Note Date/Time June 07, 2022 9 :03am [facility] [address] [place] [address] Hospitalist Progress Note Signed Patient: Heena Wang MR#: [id number] : 2005 Acct:[id number] Age/Sex: 17 / F Adm Date: 3 Loc: Room: [address] [place] [address] Type: ADM IN Attending Dr: Melo Diana [...] 18:05 06/06/22 18:10 Bisacodyl 10 Mg Supp.Rect CO 06/06/23 18:04 10 mg DAILY PRN Administration [...] Rodas catheter placement, and 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 Paresthesias have mildly improved, have moved down from the region of her umbilicus down to her ankle and foot region. Unclear how much patient's neurologic complaints are related to this Herpes WATCH CRYSTAL EDGE GRINDER infection. Lumbar puncture results: Clear, colorless fluid [...] than 0.2, Zamora IgG less than 0.2, ECONOMIC ANALYST 0.2, scleroderma 0.2, Anti-MOG pending. -CSF [...] signed by Melo Diana MD> 06/07/22 2230 [facility] Work Phone: 1(383) 660-341701-18-2023 Progress note Author Kt Pearson [facility] June 07, 2022 3:13pm Note Date/Time June 07, 2022 7 :38am [facility] [address] [place] [address] Neurology Progress Note Signed Patient: Heena Wang MR#: [id number] : 2005 Acct:[id number] Age/Sex: 17 / F Adm Date: 3 Loc: Room: [address] [place] [address] Type: ADM IN Attending Dr: Melo Diana [...] level noted with pinprick CEREBELLAR EXAM: * Amwpto-sp-vhbh and alternating movements are intact and normal in bilateral upper extremities * Ezzd-la-xrzl and alternating movements are intact and normal [...] she went to get checked out at [facility] She was also experiencing tingling paresthesias that [...] 1513 <Electronically signed by RHIANNON Avery> 06/07/22 8591 [facility] Work Phone: 1(724) 731-482201-17-2023 Progress note Author Melo Diana [facility] June 06, 2022 4:37pm Note Date/Time June 06, 2022 8 :26am [facility] [address] [place] [address] Hospitalist Progress Note Signed Patient: Heena Wang MR#: [id number] : 2005 Acct:[id number] Age/Sex: 17 / F Adm Date: 3 Loc: 3T Room: [address] [place] [address] Type: ADM IN Attending Dr: Melo Diana [...] 09:00 Valacyclovir 500 Mg Tablet PO TID [facility] A&P - Hospitalist Assessment/Plan (1) Herpes simplex [...] Bilateral Paresthesia of the Lower Extremities 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 Unclear how much patient's neurologic complaints are related to this Herpes WATCH CRYSTAL EDGE GRINDER infection. Lumbar puncture results: Clear, colorless fluid [...] -Immunology for: LIZZY, SS?A/Ro, SS-B/La, Zamora IgG, ECONOMIC ANALYST, scleroderma pending -CSF albumin, oligoclonal IgG [...] signed by Melo Diana MD> 06/06/22 1637 [facility] Work Phone: 1(894) 114-433501-17-2023 Progress note Author Kt Pearson [facility] June 06, 2022 3:31pm Note Date/Time June 06, 2022 7 :55am [facility] [address] [place] [address] Neurology Progress Note Signed Patient: Heena Wang MR#: [id number] : 2005 Acct:[id number] Age/Sex: 17 / F Adm Date: 3 Loc: 3T Room: 5Y9616-5 Type: ADM IN Attending Dr: Melo Diana [...] level noted with pinprick CEREBELLAR EXAM: * Lbhvsg-kn-cnbl and alternating movements are intact and normal in bilateral upper extremities * Ielo-ml-yxxe and alternating movements are intact and normal [...] she went to get checked out at [facility].? She was also experiencing tingling paresthesias that [...] discharge. Documented By: Kt Pearson DO 06/06/22 3445 Signed By: <Electronically signed by Kt Pearson DO> 06/06/22 1531 <Electronically signed by RHIANNON Avery> 06/06/22 6030 [facility] Work Phone: 1(213) 973-798801-17-2023 Consult note Author Rayne Vitale [facility] June 06, 2022 10:21am Note Date/Time June 06, 2022 1 0:09am [facility] [address] [place] [address] Infect. Disease Consult Note Signed Patient: Heena Wang MR#: [id number] : 2005 Acct:[id number] Age/Sex: 17 / F Adm Date: 3 Loc: Room: [address] [place] [address] Type: ADM IN Attending Dr: Melo Diana [...] period of time. She had seen at [facility] and was given oral Flagyl and [...] negative unless noted below or in HPI [facility] Attestation Statement: The following information was validated [...] 100 Mg Capsule) 100 mg PO BID [facility] Stop: 06/04/23 20:59 Last Admin: 06/06/22 08:46 Dose: 100 mg Methylprednisolone Sodium Succinate 1,000 mg/ Sodium Chloride 116 mls @ 116 mls/hr IV DAILY [facility] Stop: 06/08/22 17:59 Last Admin: 06/06/22 09:47 Dose: 116 mls/hr Morphine Sulfate (Morphine Sulfate 2 Mg/Ml Vial) 2 mg IV-PUSH Q4H PRN PRN Reason: Pain Last Admin: 06/04/22 02:57 Dose: 2 mg Polyethylene Glycol (Polyethylene Glycol 3350 17 Gm Powd.Pack) 17 gm PO DAILY [facility] Stop: 06/04/23 19:44 Last Admin: 06/06/22 08:46 Dose: 17 gm Valacyclovir HCl (Valacyclovir 500 Mg Tablet) 1,000 mg PO TID [facility] Last Admin: 06/06/22 08:46 Dose: 1,000 mg [...] <Electronically signed by MD Rayne Vitale> 06/06/22 102 [facility] Work Phone: 1(859) 653-263501-16-2023 Progress note Author Melo Diana [facility] June 05, 2022 5:58pm Note Date/Time June 05, 2022 9 :00am [facility] [address] [place] [address] Hospitalist Progress Note Signed Patient: Heena Wang MR#: [id number] : 2005 Acct:[id number] Age/Sex: 17 / F Adm Date: 3 Loc: Room: [address] [place] [address] Type: ADM IN Attending Dr: Melo Diana [...] 500 Mg Tablet PO 1,000 mg BID [facility] A&P - Hospitalist Assessment/Plan (1) Paresthesia [...] -Immunology for: LIZZY, SS?A/Ro, SS-B/La, Zamora IgG, ECONOMIC ANALYST, scleroderma pending -Lumbar puncture results pending. [...] <Electronically signed by Melo Diana MD> 06/05/22 1754 [facility] Work Phone: 1(363) 679-257001-16-2023 Progress note Author Kt Pearson [facility] June 05, 2022 5:19pm Note Date/Time June 05, 2022 9 :08am [facility] [address] [place] [address] Neurology Progress Note Signed Patient: Heena Wang MR#: [id number] : 2005 Acct:[id number] Age/Sex: 17 / F Adm Date: 3 Loc: Room: [address] [place] [address] Type: ADM IN Attending Dr: Melo Diana [...] level noted with pinprick CEREBELLAR EXAM: * Phbzli-or-xyyz and alternating movements are intact and normal in bilateral upper extremities * Bbsq-bw-kmrs and alternating movements are intact and normal [...] she went to get checked out at [facility].? She was also experiencing tingling paresthesias that [...] <Electronically signed by RHIANNON Avery> 06/05/22 1044 [facility] Work Phone: 1(824) 466-450401-16-2023 [facility] Progress note Author Ravi Zhang [facility] June 04, 2022 6:44pm Note Date/Time June 04, 2022 1 0:01am [facility] [address] [place] [address] Hospitalist Progress Note Signed Patient: Heena Wang MR#: [id number] : 2005 Acct:[id number] Age/Sex: 17 / F Adm Date: 3 Loc: Room: [address] [place] [address] Type: ADM IN Attending Dr: Ravi Zhang [...] <Electronically signed by Ravi Zhang DO> 06/04/22 7103 [facility] Work Phone: 1(740) 753-876401-15-2023 Consult note Author Isaías Pan [facility] June 04, 2022 2:39pm Note Date/Time June 04, 2022 2 :19pm [facility] [address] [place] [address] [facility] Consult Note Signed Patient: Heena Wang MR#: [id number] : 2005 Acct:[id number] Age/Sex: 17 / F Adm Date: 3 Loc: Room: [address] [place] [address] Type: ADM IN Attending Dr: Ravi Zhang [...] symptoms in the past that resemble this. [facility] Vaccinated for COVID-19?: Yes [...] 500 Mg Tablet) 1,000 mg PO BID [facility] BIOCHEMISTRY TECHNICIAN - Exam Physical Exam Vital signs: Temp [...] lymph nodes. Lower extremities showed no edema. BIOCHEMISTRY TECHNICIAN - Results Laboratory Results - Last 48 [...] % (Auto) 45.7, Lymph % (Auto) 42.0, Summers % (Auto) 9.4, Eos % (Auto) 0.9, Baso % (Auto) 2.0, Nucleat RBC Rel Count 0.3, Neut # (Auto) 3.1, Lymph # (Auto) 2.9, Summers # (Auto) 0.6, Eos # (Auto) 0.1, Baso # (Auto) 0.1, ESR 26 H Microbiology - Results from entire visit 06/04/22 12:05 Vaginal Fungal Smear - Final 06/04/22 12:05 Vaginal Trichomonas [place] - Final BIOCHEMISTRY TECHNICIAN - A/P (1) Acute urinary retention: Code(s): [...] signed by Isaías Pan DO> 06/04/22 1439 [facility] Work Phone: [phone] 761-285901-15-2023 Consult note Author Iman Gomez [facility] June 04, 2022 1:38pm Note Date/Time June 04, 2022 1 1:04am [facility] [address] [place] [address] Urology Consult Note Signed Patient: Heena Wang MR#: [id number] : 2005 Acct:[id number] Age/Sex: 17 / F Adm Date: 3 Loc: 3T Room: [address] [place] [address] Type: ADM IN Attending Dr: Ravi Zhang DO Copies to: WINNIE Thomas MD Kristopher L Lindbloom, DO~ History of Present Illness Consult Details Consult Date: 06/04/2022 Reason for Urology Consult: Urinary retention Requesting Provider: Ravi Zhang DO HPI: 17 year old healthy female transferred from outside hospital to [facility] on 06/02/2022 with acute urinary retention [...] has not beendiagnosed with PCOS, no prior BIOCHEMISTRY TECHNICIAN evaluation. Has appointment this week. Her paresthesias [...] % (Auto) 45.7, Lymph % (Auto) 42.0, Summers % (Auto) 9.4, Eos % (Auto) 0.9, Baso % (Auto) 2.0, Nucleat RBC Rel Count 0.3, Neut # (Auto) 3.1, Lymph # (Auto) 2.9, Summers # (Auto) 0.6, Eos # (Auto) 0.1, [...] Neurologic evaluation negative. Patient was down with [facility] getting examined due to swollen and painful [...] <Electronically signed by Iman Gomez MD> 06/04/22 0109 [facility] Work Phone: 1(361) 351-310901-15-2023 Progress note Author Kt Pearson [facility] June 04, 2022 11:43am Note Date/Time June 04, 2022 1 1:43am [facility] [address] [place] [address] Neurology Progress Note Signed Patient: Heena Wang MR#: [id number] : 2005 Acct:[id number] Age/Sex: 17 / F Adm Date: 3 Loc: Room: [address] [place] [address] Type: ADM IN Attending Dr: Ravi Zhang [...] signed by Kt Pearson DO> 06/04/22 1143 [facility] Work Phone: 1([phone]) 549-418301-14-2023 Progress note Author Ravi Zhang [facility] June 03, 2022 6:07pm Note Date/Time June 03, 2022 6 :07pm [facility] [address] [place] [address] Hospitalist Progress Note Signed Patient: Heena Wang MR#: [id number] : 2005 Acct:[id number] Age/Sex: 17 / F Adm Date: 3 Loc: 3T Room: [address] [place] [address] Type: ADM IN Attending Dr: Ravi Zhang [...] signed by Ravi Zhang DO> 06/03/22 180 [facility] Work Phone: [phone] 146-653901-14-2023 Consult note Author Kt Pearson [facility] June 03, 2022 12:02pm Note Date/Time June 03, 2022 1 0:02am [facility] [address] [place] [address] Neurology Consult Note Signed Patient: Heena Wang MR#: [id number] : 2005 Acct:[id number] Age/Sex: 17 / F Adm Date: 3 Loc: 3T Room: [address] [place] [address] Type: ADM IN Attending Dr: Ravi Zhang DO Copies to: DO Morro Lopez APRN Kristopher L Lindbloom, DO~ HPI Consult Date: 06/03/22 Configuration Management Consultant: Kt Pearson, PMFSH Vaccinated for COVID-19?: Yes [...] woman with history of scoliosis. Works at [employer]. After not being able to urinate for 8+ hours she went to get checked out at [facility]. She was also experiencing tingling paresthesias that [...] <Electronically signed by Kt Pearson DO> 06/03/22 1204 [facility] Work Phone: [phone] 972-774901-13-2023 History and physical note Author Ravi Zhang [facility] June 02, 2022 9:44pm Note Date/Time June 02, 2022 9 :44pm [facility] [address] [place] [address] Hospitalist H&P Signed Patient: Heena Wang MR#: [id number] : 2005 Acct:[id number] Age/Sex: 17 / F Adm Date: 3 Loc: Room: [address] [place] [address] Type: ADM IN Attending Dr: Ravi Zhang [...] except as mentioned elsewhere in the documentation. [facility] Attestation Statement: The following information was validated [...] and equal bilaterally. Lower extremities: She describes htvz-bwv-jbmsoke type paresthesias all the way from the [...] <Electronically signed by Ravi Zhang, > 06/02/222143 [facility] Work Phone: [phone] 337-794701-04-2023 Hospital Discharge instructions Follow Up Care 05/24/2022 14:39:56 With:MORRO HAUSER CNP Address: [address] [place] [address]- When: Unknown [facility] 01-01-2023 History general Narrative - [...] History Rodas catheter placement 023 Hospitalization History [facility] - Viral men ingitis, urinary retention 06/02 - 06/09 2022 [employer] Other 01-01-2023 History general Narrative - Reported* [...] History Rodas catheter placement 023 Hospitalization History [facility] - Viral men ingitis, urinary retention 06/02 - 06/09 2022 [employer] Other 08-18-2022 Evaluation note* Encounter Date Diagnosis [...] that were not corrected during review process. [employer] Other 07-07-2022 Evaluation note* Encounter Date Diagnosis Assessment Notes Treatment Notes Treatment Clinical Notes Nov, Exposure to COVID-19 virus (ICD-10 - Z20.822) [employer] Other 07-05-2022 Evaluation note* Encounter Date Diagnosis [...] continue medication, discontinuing medication or follow-up with [facility].I did explain that there are other underlying pathologies that can cause painful cramping. This work-up and diagnosis would need to be done by [facility] especially due to her age.Patient verbalizes understanding and will let me know if she would like to continue the control or not. Nov, Other *Progress note was completed with the assistance of voice recognition software for dictation purposes. Please excuse any grammatical errors that were not corrected during review process. [employer] Other 04-26-2022 Evaluation note* Encounter Date Diagnosis [...] cancer, but decreased risk for ovarian/uterine cancers, penitentiary. Can call in 3 months for refills if desired. 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 Metronidazole adverse reaction acute Paresthesia of both lower extremities acute Primary vulvovaginal herpes simplex infection acute Vaginal discharge acute Vulvar ulceration acute [facility] Work Phone: Evaluation noteNo InformationNort Earth [employer] Other Evaluation noteNo assessment information available [facility] Work Phone: Evaluation note* Diagnosis Dysuria- Primary Acute cystitis without hematuria documented in this encounter [facility] HealthcareEvaluation note* Diagnosis Encounter for surveillance of other contraceptive documented in this encounter [facility] Healthcare[facility] note* Diagnosis Status post arthroscopy of right knee- Primary Other postprocedural status documented in this encounter [facility] HealthcareHistory general Narrative - Reported* Type Description Date Medical History scoliosis Surgical History tubes in ears twice 2004 Surgical History adenoidectomy 2004 [employer] Other History general Narrative - Reported* Type Description Date Medical History scoliosis Medical History seasonal allergies Surgical History tubes in ears twice 2004 Surgical History adenoidectomy 2004 [employer] Other Hospital Discharge instructions No data available for this section [facility] Additional Instructions Maintain and routine care to rodas. Maintain rodas until you see Dr. Gomez and she gives you further orders.[facility] Work Phone: Progress note No data available for this section [facility] Chief Complaint and Reason for Visit Chief [...] Referral Reason 07/26/22 @ 1:30pm [facility] SPECIFICALLY ; PATIENT'S MOTHER CLEARED WITH PROVIDER HERSELF PLEASE CONTACT MOTHER KEELY AT [phone] TO SCHEDULE Diagnosis 1 Anxiety (F41.9) Referral Organization [facility] Cathryn Llamas Referring Provider First Name Morro Referring Provider Last Name Talon Referring Provider Specialty Nurse Praccj barronionenilson Referred Organization [facility] Referred Address [address] [place], [place],[address] Referred Provider Specialty Psychiatry Referral Priority Routine Referral Appointment Date 2022-07-26 General Notes Tricia Borjas 023 02:12:31 PM >Received today and fax referral. [facility] Referral Dept will call patient and schedule [...] DO Admit Provider Active Morro Hauser , HOUSEPERSON Primary Care Provider Active Kt Pearson , Other Provider Active Isaías Pan , Other Provider Active Iman Gomez MD Other Provider Active Melo Diana MD Attending Provider Active Rayne Vitale MD Other Provider Active Team Status: Active Member Role Status Dates Morro Hauser , HOUSEPERSON Primary Care Provider Active Team Status: Inactive Member Role Status Dates Morro Hauser APRN Primary Care Provider Active Samra Greenberg APRN Emergency Provider Active Stable Hand Relationship Specialty Start Date End Date Morro Hauser MD [address] [place] [address] Primary Care Provider Family Medicine 01/11/23 Stable Hand Relationship Specialty Start Date End Date Morro Hauser MD [address] [place] [address] Primary Care Provider Family Medicine 01/11/23 Stable Hand Relationship Specialty Start Date End Date Morro Hauser MD [address] [facility] [place] [address] Primary Care Provider Family Medicine 01/11/23 Goals (unrecognized section and content) Goals may be documented in a n alternate section INFORMATION SOURCE (unrecogn ized section and content) DATE CREATED AUTHOR 07/08/2022 [facility] DATE CREATED AUTHOR AUTHOR'S ORGANIZ ATION 01/18/2023 [facility] DATE CREATED AUTHOR AUTHOR'S ORGANIZ ATION 11/22/2023 [facility] DATE CREATED AUTHOR AUTHOR'S ORGANIZ ATION 04/11/2024 [facility] EPIC FOR RECORDS PERTAINING TO PATIENTS [...] BE BASED ON THE PRIMARY CLINICAL RECORDS. [facility] [employer] [facility]. provides no warranty or guarantee of the accuracy or completeness of information in this document.
[2024-05-16 19:41] VITALS: BP 126/76; PULSE 88; TEMP 36.7; O2SAT 98; BMI 25.8
--- NOTE | 2024-05-16 19:50 | US_ITS ---
The [address] [address] Patient Name: HEENA WANG MRN: [id number] date: 2005 Sex: F Assigned Patient Location: ED.MAIN Current Patient Location: ED.MAIN Accession/Order Number: [id number] Exam Date: 05/16/2024 19:55 Report Date: 05/16/2024 21:06 At the request of: TYRESE YBARRA Procedure: US OB transvaginal EXAM: Pelvic ultrasound ultrasound CLINICAL INDICATION: pelvic pain. COMPARISON: None TECHNIQUE: Transvaginal OB pelvic ultrasound was performed grayscale and color Doppler images were obtained. FINDINGS: Intrauterine with gestational sac, fetus and yolk sac present. cardiac activity is present at 181 bpm. Morada-rump length measures 3.49 cm for estimated gestational age of 10 weeks 3 days. Probable small subchorionic hematoma. Right ovary was unable to be visualized during the exam. Left ovary: Measures 2.7 x 2.2 x 2.0 cm. Normal color flow and Doppler arterial and venous waveforms. No ovarian masses. No free fluid in the pelvis. US/US OB transvaginal IMPRESSION: 1. Intrauterine with cardiac activity present. 2. Probable small subchorionic hematoma. Electronically authenticated by: ELLIOT CARR Date: 05/16/2024 21:06
--- NOTE | 2024-05-16 19:50 | PC.NURSE ---
PT APPROX 12 WEEKS PREG. PT STATES VOMITING FOR 5 DAYS. UABLE TO EAT OR DRINK. PT OBGYN PRESCRIBED ZOFRAN, PHENERGAN, AND REGLAN. PT STATES MEDICATION NOT HELPING
--- NOTE | 2024-05-16 19:51 | ED_ITS ---
HPI HPI - General Adult General Chief complaint: Nausea/Vomiting/Diarrhea Stated complaint: throwing up Time Seen by Provider: 05/16/24 19:34 Source: patient Mode of arrival: walk-in Limitations: no limitations History of Present Illness HPI narrative: Patient is a A0 who presents to the emergency department at 12 weeks of for continued nausea and vomiting for the last 5 days. This is the patient's third visit to this emergency department for the symptoms in the last 3 weeks. She has been prescribed Zofran, Phenergan and Reglan at home. She has been using all of these medications without improvement. She states she is miserable . She is able to urinate without difficulty and has not had fevers, cough or congestion. She states today she developed pelvic pain. She has not yet had an ultrasound in this . She states she was told that the medications are not improving her symptoms she will likely need a Zofran pump. Related Data Home Medications ?Medication ?Instructions ?Recorded ?Confirmed promethazine 12.5 mg tablet 12.5 mg PO Q6H PRN nausea and 05/14/24 05/16/24 vomiting metoclopramide HCl 10 mg tablet 10 mg PO TIDWMEAL 05/16/24 05/16/24 Previous Rx's ?Medication ?Instructions ?Recorded ondansetron 4 mg disintegrating 4 mg PO Q8H PRN nausea and 04/19/24 tablet vomiting #14 tabs ondansetron 4 mg disintegrating 4 mg PO Q6H PRN nausea and 05/16/24 tablet vomiting #12 tabs promethazine 25 mg rectal 25 mg RI Q6H PRN nausea and 05/16/24 suppository vomiting #12 ea Allergies Allergy/AdvReac Type Severity Reaction Status Date / Time No Known Drug Allergies Allergy Verified 05/16/24 19:41 Opioid HPI Opioid Management Most Recent Opioid Data: Last Pain Scale 0 05/16/24 20:16 05/16/24 Last ED Pain Assessment 05/16/24 20:16 Review of Systems ROS Constitutional Denies: fever or chills Ears, nose, mouth, and throat Denies: throat pain or nasal congestion Cardiovascular Denies: chest pain Respiratory Denies: shortness of breath Gastrointestinal Reports: abdominal pain, nausea and vomiting; Denies: diarrhea Musculoskeletal Denies: back pain Integumentary/Breast Denies: rash Neurological Denies: numbness in extremities or weakness in extremities Hematologic/Lymphatic Denies: easy bruising or easy bleeding PFSH PFS Social History Little interest or pleasure in doing things: not at all Feeling down, depressed, or hopeless: not at all Exam Narrative Exam Narrative: Gen.: Awake, alert, in no distress Head: Normocephalic, atraumatic ENT: Moist mucous membranes Respiratory: No respiratory distress, lungs clear bilaterally Cardio: Regular rate and rhythm Gastrointestinal: Abdomen is soft, nondistended and nontender to palpation; no right lower quadrant tenderness or McBurney's point tenderness. No pain out of proportion on exam Extremities: Moves extremities equally Psych: Normal mood and affect Neuro: No focal neuro deficit Skin: Warm, dry, intact Constitutional Vital Signs, click to edit/add: Last Vital Signs Temp 98.1 F 05/16/24 19:41 Pulse 81 05/16/24 20:15 Resp 20 05/16/24 20:15 BP 122/82 05/16/24 20:15 Pulse Ox 98 05/16/24 20:15 O2 Del Method Room Air 05/16/24 19:41 Course Vital Signs Vital signs: Vital Signs Temperature 98.1 F 05/16/24 19:41 Pulse Rate 88 05/16/24 19:41 Respiratory Rate 18 05/16/24 19:41 Blood Pressure 126/76 05/16/24 19:41 Pulse Oximetry 98 05/16/24 19:41 Oxygen Delivery Method Room Air 05/16/24 19:41 Temperature 98.1 F 05/16/24 19:41 Pulse Rate 81 05/16/24 20:15 Respiratory Rate 20 05/16/24 20:15 Blood Pressure 122/82 05/16/24 20:15 Pulse Oximetry 98 05/16/24 20:15 Oxygen Delivery Method Room Air 05/16/24 19:41 Medical Decision Making MDM Narrative Medical decision making narrative: Patient medicated with IV fluids and IV Zofran. Her labs are unremarkable, ketones noted on urine with no other acute process. Abdomen is soft and benign in the ER. As the patient developed pelvic pain today and has not yet had an ultrasound, this was performed in the ER showing intrauterine gestation with normal cardiac activity. She will be prescribed Phenergan suppositories and Zofran ODT for home. Follow-up with [facility] for an insulin pump as needed. She is hemodynamically stable with normal vital signs at discharge. SHARED APC VISIT, PHYSICIAN ATTESTATION: [id number] I performed a substantive part of the MDM during the patient?s E/M visit. I personally evaluated and examined the patient. I personally made or approved the documented management plan and acknowledge its risk of complications. Medical Records Medical records reviewed: Yes I reviewed the patient's medical records Lab Data Lab results reviewed: Yes I reviewed the patient's lab results Labs: Lab Results 05/16/24 Range/Units 20:00 WBC 10.5 (4.0-11.0) 10^3/uL RBC 4.62 (4.20-5.40) 10^6/uL Hgb 13.7 (12.0-16.0) g/dL Hct 39.4 (36.0-48.0) % MCV 85.3 (81.0-99.0) fL MCH 29.7 (26.7-34.0) pg MCHC 34.8 (29.9-35.2) g/dL RDW 12.2 (11.0-15.0) % Plt Count 213 (150-450) 10^3/uL MPV 11.8 (9.5-13.5) fL Neut % (Auto) 80.6 H (43.0-75.0) % Lymph % (Auto) 12.4 L (20.5-60.0) % Cameron % (Auto) 5.9 (1.7-12.0) % Eos % (Auto) 0.0 L (0.9-7.0) % Baso % (Auto) 0.6 (0.2-2.0) % Neut # (Auto) 8.5 H (1.4-6.5) 10^3/uL Lymph # (Auto) 1.3 (1.2-3.8) 10^3/uL Cameron # (Auto) 0.6 (0.3-0.8) 10^3/uL Eos # (Auto) 0.0 (0.0-0.7) 10^3/uL Baso # (Auto) 0.1 (0.0-0.1) 10^3/uL Abs Immat Gran (auto) 0.05 H (0.00-0.03) 10^3/uL Imm/Tot Granulo (auto) 0.5 (0.0-0.5) % Sodium 137 (136-145) mmol/L Potassium 3.3 L (3.5-5.1) mmol/L Chloride 102 (98-107) mmol/L Carbon Dioxide 23.2 (21.0-32.0) mmol/L Anion Gap 15.1 BUN 5.0 L (7.0-18.0) mg/dL Creatinine 0.67 (0.55-1.02) mg/dL Est GFR ( Amer) >60 (>=60 mL/min/1.73m^2) Est GFR (Non-Af Amer) >60 (>=60 mL/min/1.73m^2) BUN/Creatinine Ratio 7.5 Glucose 84 (74-106) mg/dL Calcium 9.0 (8.5-10.1) mg/dL Total Bilirubin 1.6 H (0.2-1.0) mg/dL AST 12 L (15-37) U/L ALT 15 (14-59) U/L Alkaline Phosphatase 70 (46-116) U/L Total Protein 7.7 (6.4-8.2) g/dL Albumin 3.8 (3.4-5.0) g/dL Globulin 3.9 g/dL Albumin/Globulin Ratio 1.0 Urine Color Yellow (YELLOW) Urine Clarity Slightly cloudy A (CLEAR) Urine pH 6.0 (5.0-9.0) Ur Specific [place] >=1.030 A (1.005-1.025) Urine Protein Trace (NEG/TRACE) mg/dL Urine Glucose (UA) Negative (NEGATIVE) mg/dL Urine Ketones >=80 A (NEGATIVE) mg/dL Urine Occult Blood Negative (NEGATIVE) Urine Nitrite Negative (NEGATIVE) Urine Bilirubin Negative (NEGATIVE) Urine Urobilinogen 1.0 (0.2-1.0) EU/dL Ur Leukocyte Esterase Negative (NEGATIVE) Imaging Data US - abdomen: Attestation: I have reviewed the pertinent imaging results. Discharge Plan Discharge Chief Complaint: Nausea/Vomiting/Diarrhea Clinical Impression: Nausea and vomiting in Patient Disposition: Home, Self-Care Time of Disposition Decision: 20:55 Condition: Good Prescriptions / Home Meds: New ondansetron 4 mg tablet,disintegrating 4 mg PO Q6H PRN (Reason: nausea and vomiting) Qty: 12 0RF promethazine 25 mg suppository 25 mg RI Q6H PRN (Reason: nausea and vomiting) Qty: 12 0RF No Action ondansetron 4 mg tablet,disintegrating 4 mg PO Q8H PRN (Reason: nausea and vomiting) Qty: 14 0RF promethazine 12.5 mg tablet 12.5 mg PO Q6H PRN (Reason: nausea and vomiting) metoclopramide HCl 10 mg tablet 10 mg PO TIDWMEAL Print Language: Tajik Instructions: Nausea and Vomiting in (ED) Additional Instructions: Zofran can be taken phenergan or reglan, but please do not take phenergan and reglan at the same time Push fluids Follow up with your [facility] Referrals: Jenna Hanley NP [Primary Care Provider] - 1 week
[2024-05-16 20:11] LABS: Basophils Absolute Auto 0.1 10^3/uL (0.0-0.1); Basophils Percent Auto 0.6 % (0.2-2.0); Bilirubin Urine NEGATIVE (NEGATIVE); Blood Urine NEGATIVE (NEGATIVE); Color Urine YELLOW (YELLOW); Glucose Urine UA NEGATIVE (NEGATIVE); Hematocrit 39.4 % (36.0-48.0); Hemoglobin 13.7 g/dL (12.0-16.0); Immature Granulocytes Abs Auto 0.05 10^3/uL (0.00-0.03); Immature Granulocytes Pct Auto 0.5 % (0.0-0.5); Ketones Urine >=80 mg/dL (NEGATIVE); Leukocyte Esterase Urine NEGATIVE (NEGATIVE); Lymphocytes Absolute Auto 1.3 10^3/uL (1.2-3.8); Lymphocytes Percent Auto 12.4 % (20.5-60.0); Mean Corpuscular HGB Conc 34.8 g/dL (29.9-35.2); Mean Corpuscular Hemoglobin 29.7 pg (26.7-34.0); Mean Corpuscular Volume 85.3 fL (81.0-99.0); Mean Platelet Volume 11.8 fL (9.5-13.5); Monocytes Absolute Auto 0.6 10^3/uL (0.3-0.8); Monocytes Percent Auto 5.9 % (1.7-12.0); Neutrophils Absolute Auto 8.5 10^3/uL (1.4-6.5); Neutrophils Percent Auto 80.6 % (43.0-75.0); Nitrite Urine NEGATIVE (NEGATIVE); Platelet Count 213 10^3/uL (150-450); Protein Urine TRACE mg/dL (NEG/TRACE); Red Blood Count 4.62 10^6/uL (4.20-5.40); Red Cell Distribution Width 12.2 % (11.0-15.0); Specific Gravity Urine >=1.030 (1.005-1.025); White Blood Count 10.5 10^3/uL (4.0-11.0)
[2024-05-16 20:15] VITALS: BP 122/82; PULSE 81; O2SAT 98
[2024-05-16 20:19] LABS: Clarity Urine SLIGHTLY CLOUDY (CLEAR); Urine Microscopic Indicated NO
[2024-05-16] MEDS: 0.9 % SODIUM CHLORIDE 1,000 ML 999 ML IV (20:27)
[2024-05-16] MEDS: ONDANSETRON PF 4 MG/2 ML VIAL IV (20:27)
[2024-05-16 20:28] LABS: Alanine Aminotransferase 15 U/L (14-59); Albumin Level 3.8 g/dL (3.4-5.0); Alkaline Phosphatase 70 U/L (46-116); Anion Gap 15.1; Aspartate Amino Transferase 12 U/L (15-37); BUN Creatinine Ratio 7.5; Bilirubin Total 1.6 mg/dL (0.2-1.0); Carbon Dioxide 23.2 mmol/L (21.0-32.0); Chloride 102 mmol/L (98-107); Estimated GFR (African America >60 (>=60 mL/min/1.73m^2); Estimated GFR (Non-African Ame >60 (>=60 mL/min/1.73m^2); Globulin 3.9 g/dL; Glucose 84 mg/dL (74-106); Potassium 3.3 mmol/L (3.5-5.1); Sodium 137 mmol/L (136-145); Total Protein 7.7 g/dL (6.4-8.2)
[2024-05-16 21:08] VITALS: BP 115/87; PULSE 78; O2SAT 98
== END 2024-05-16 21:11 | disposition home or self-care (01) ==
PROVIDERS: Physician Assistant; Emergency Provider Emergency Medicine; PCP Nurse Practitioner Family
DX: O21.9 Vomiting of pregnancy, unspecified (principal); Z3A.12 12 weeks gestation of pregnancy; O26.891 Other specified pregnancy related conditions, first trimester; R10.2 Pelvic and perineal pain
CPT/HCPCS: 36415; 76817; 80053; 81003; 85025; 96361; 96374; 99285; J2405

== ENCOUNTER 2024-06-04 14:20 | Outpatient (OUT) | payer MEDICAID, SELFPAY ==
--- OUTSIDE RECORDS SUMMARY | 2024-06-04 14:41 | XMS_ITS | CCD ---
Author Organization [facility] Care Team Providers Care Cms Expert Name Role Phone Morro Hauser Unavailable MORRO HAUSER Primary Care Physician DO Ravi Zhang Admit Provider WINNIE Hauser Primary Care Provider DO Kt Pearson Other Provider DO Isaías Pan Other Provider MD Iman Gomez Other Provider MD Melo Diana Attending Provider [phone] MD Rayne Vitale Other Provider DR JOSÉ MIGUEL LAM V Consulting Unavailable MORRO HAUSER Primary Care Unavailable MADHU, DR VALVERDE Attending Unavailable MADHU, DR VALVERDE Admitting Unavailable MADHU, DR VALVERDE Consulting Unavailable WINNIE Hauser Primary Care Provider WINNIE Greenberg Emergency Provider Racheal Greenberg Unavailable Rupert Soriano Attending Unavailable Morro Hauser MD Unavailable [phone] Percy Mendoza Attending Unavailable Percy Mendoza Admitting Unavailable SAMPSON AYALA Referring Unavailable SAMPSON AYALA [...] Twice a day as needed Active azaTHIOprine (10 sources) Purine Antimetabolite Start: 01-07-2023 Azathioprine Active MG TABLET January 07, 2023 12:00am take 0.5 tablet by m outh once daily in the morning, then take 1 tablet by mouth at bedtime azaTHIOprine (Imuran) 100 MG tablet TAKE 1/2 (ONE-HALF) OF A TABLET BY MOUTH EVERY MORNING, and ONE TABLET AT BEDTIME, titrate up DIRECTED Diagnosis Unavailable Active escitalopram 20 mg oral tablet (11 sources) Serotonin Reuptake Inhibitor Start: 01-07-2023 Escitalopram Oxalate Active MG TABLET January 07, 2023 12:00am Start: 07-26-2022 escitalopram ( Lexapro) 20 MG tablet 1 (one) time each day at the same time. 07/26/2022 Active take 1 tablet by arcelia th every twenty-four hours Lexapro 10 MG 1 tablet Orally Once a day Active {7 (ethinyl estradiol 0.025 MG / [...] a day for 30 day(s) Nov, Active metoclopramide 10 mg oral tablet (1 source) Dopamine-2 Receptor Antagonist Start: 05-15-2024 End: 06-14-2024 metoclopramide (Reglan) 10 MG tablet Indications: Nausea and vomiting during Take 1 tablet (10 mg) by mouth in the morning and 1 tablet (10 mg) at noon and 1 tablet (10 mg) in the evening. Take before meals. Take 1 tablet by mouth 30 minutes prior to meals 3 times daily as needed for nausea.. 90 tablet 3 05/15/2024 06/14/2024 Active nitrofurantoin, macrocrystals 25 mg / nitrofurantoin, monohydrate 75 mg oral capsule (2 sources) Nitrofuran Antibacterial Start: 04-08-2024 End: 04-15-2024 take 1 capsule by mouth in the morning nitrofurantoin, macrocrystal-monohy drate, (Macrobid) 100 MG capsule Indications: Acute cystitis without hematuria Take 1 capsule (100 mg) by mouth in the morning and 1 capsule (100 mg) before bedtime. Do all this for 7 days. 14 capsule 04/08/2024 04/15/2024 Active ondansetron 4 mg disintegrating oral tablet (1 source) Serotonin-3 Receptor Antagonist Start: 04-29-2024 take 1 tablet by mouth every eight hours as needed for nausea and vomiting and nausea and nausea ondansetron ODT (Zofran-ODT) 4 MG disintegrating tablet Indications: Nausea Take 1 tablet (4 mg) by mouth every 8 (eight) hours if needed for nausea or vomiting 20 tablet 3 04/29/2024 Active promethazine hydrochloride 12.5 mg oral tablet (2 sources) Phenothiazine Start: 04-23-2024 take 1 tablet by mouth every six hours as needed for nausea and nausea, then take 1 tablet by mouth every six hours as needed for nausea and nausea promethazine (Phenergan) 12.5 MG tablet Indications: Nausea and vomiting during Take 1 tablet (12.5 mg) by mouth every 6 (six) hours if needed for nausea or vomiting for up to 30 doses Take 1 tablet by mouth every 6 hours as needed for nausea. 30 tablet 2 05/15/2024 Active valACYclovir 500 mg oral tablet (15 sources) Herpesvirus Nucleoside Analog DNA Polymerase Inhibitor, [...] 07, 2023 11:16am take 2 tablets by mo [facility] every eight hours valACYclovir HCl 500 MG 2 tablets Orally three times a day Active Completed/Discontinued Medications Medication Drug Class(es) Dates Sig (Normalized) Sig (Original) acetaminophen 325 mg / HYDROcodone bitartrate 5 mg oral tablet (2 sources) Opioid Agonist Start: 01-28-2024 End: 02-11-2024 take 1-2 tablets by mouth every four hours for pain HYDROcodone-acetam inophen ([place]) 5-325 MG tablet Indications: Acute traumatic internal derangement of right knee, initial encounter Take 1-2 tablets by mouth every 4 (four) hours if needed for severe pain (surgical pain) for up to 7 days 20 tablet 01/28/2024 02/11/2024 Discontinued (Therapy completed) drospirenone 3 mg / ethinyl estradiol 0.03 mg oral tablet (10 sources) Progestin, Estrogen Start: 12-26-2023 End: 05-19-2024 drospirenone-ethin yl estradiol (Di, [place]) 3-0.03 MG tablet Indications: Uses control Take 1 tablet by mouth once daily 28 tablet 3 12/26/2023 05/19/2024 Discontinued (Therapy completed) Start: 01-07-2023 Drospirenone-E thinyl Estradiol Active TAB TABLET January 07, 2023 12:00am take 1 tablet by arcelia once daily Drospirenone-Ethinyl Estradiol 3-0.03 MG TAKE 1 TABLET BY MOUTH EVERY DAY Oral for 28 Days Active Ethinyl Estradiol / Ferrous fumarate / Norethindrone (3 sources) Estrogen Start: 04-16-2024 End: 05-19-2024 norethindrone-ethinyl estrad iol (06/09) 1-20 MG-MCG tablet Indications: Encounter for surveillance of other contraceptive Take 1 tablet by mouth Daily 28 tablet 11 04/16/2024 05/19/2024 Discontinued (Therapy completed) Start: 04-16-2024 End: 04-16-2025 norethindrone-ethinyl estrad iol (06/09) 1-20 MG-MCG tablet Indications: Encounter for surveillance of other contraceptive Take 1 tablet by mouth Daily 28 tablet 04/16/2024 04/16/2025 Active Ibuprofen (2 sources) Nonsteroidal Anti-inflammatory Drug Start: [...] June 09, 2022 3:36pm polyethylene glycol 3350 24803 mg powder for oral solution (2 sources) [...] [Contraception ] Onset: 09-13-2021 Resolved: 09-13-2021 Episodic E Codes: Adverse effects of medical drugs (3 sources) Metronidazole adverse reaction; Translations: [Adverse effect of other specified systemic anti-infectives and antiparasitics, initial encounter] 06-02-2022 Episodic Encephalitis (except that caused by tuberculosis or sexually transmitted disease) (8 sources) 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; 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] 06-06-2022 Episodic Genitourinary symptoms and ill-defined conditions (10 sources) Acute retention of urine ; Translations: [Other retention of urine] Onset: 06-15-2022 06-02-2022 Episodic Inflammatory diseases of female pelvic organs (3 sources) Ulceration of vulva; Translations: [Ulceration of vulva] 06-04-2022 Episodic Menstrual disorders (9 sources) Dysmenorrhea; Translations: [Dysmenorrhea, unspecified] Onset: 11-22-2021 Resolved: 11-22-2021 Chronic Other aftercare (1 source) Encounter for follow-up examination after completed treatment for conditions other than malignant neoplasm Episodic Other bone disease and musculoskeletal deformities (8 sources) Idiopathic scoliosis; 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, 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 Other connective tissue disease (8 sources) Swelling of finger ; Translations: [Other specified soft tissue disorders] Episodic Other female genital disorders (1 source) Noninflammatory disorder of the vagina; Translations: [Other specified noninflammatory disorders of vagina] Onset: 05-24-2022 Episodic Other female genital disorders (2 sources) Vaginal discharge; Translations: [Other specified noninflammatory disorders of vagina] 06-04-2022 Episodic Other female genital disorders (1 source) Other specified noninflammatory disorders of vagina; Translations: [Leukorrhea, not specified as infective] 06-09-2022 Episodic Other female genital disorders (4 sources) [...] Translations: [Paresthesia of skin] 06-02-2022 Episodic Other nervous system disorders (1 source) Paresthesia of skin; Translations: [Disturbance of skin sensation] 06-09-2022 Episodic Other and delivery including normal (2 sources) ; Translations: [Encounter for supervision of normal , unspecified, unspecified trimester] 05-20-2024 Episodic Other upper respiratory infections (2 sources) Acute pharyngitis, unspecified; Translations: [Acute upper respiratory infection, unspecified] Episodic Residual codes; unclassified (4 sources) Urinary catheter in situ; Translations: [Presence of other specified devices] Episodic Residual codes; unclassified (1 source) Presence of other specified devices Episodic Residual codes; unclassified (2 sources) History of arthroscopy of knee joint; Translations: [Other specified postprocedural states] 02-14-2024 Episodic Residual codes; unclassified (1 source) Gestation period, 11 weeks; Translations: [11 weeks gestation of ] 05-20-2024 Episodic Sprains and strains (2 sources) Sprain of ankle; Translations: [Sprain of unspecified ligament of unspecified ankle, initial encounter] Onset: 10-28-2023 01-07-2023 Episodic Urinary tract infections (2 sources) Acute cystitis; Translations: [Acute cystitis without hematuria] 04-08-2024 Episodic Viral infection (3 sources) Herpetic vulvovaginitis; 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 Past or Other Problems Problem Classification Problem Date Documented Da te Episodic/Chronic Other connective tissue disease (1 source) Myalgia, unspecified site Onset: 01-05-2022 Resolved: 01-05-2022 Episodic Otitis media and related conditions (1 [...] 2 infection; 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, unspecified] Onset: 12-22-2022 06-06-2022 Episodic Results Test Name Value Interpretation Reference Range Facility HCG ( test) Ql (U)o n 05-20-2024 Interpretation and review of laboratory results Abnormal [facility] Healthcare Preg Test, Ur Positive Negative [facility] Urine Cultureon 05-14-2024 Bacteria identified Cx Nom (U) 30,000 colonies/ml mixed bacterial skin contaminants 2 Days PERFORMED BY: [place] [address] PATHOLOGIST PROCUREMENT PROFESSION[employer] LIDIA ZHENG M.D. Normal [facility] Comment on above: Performed By: #### C UU #### [address] Laboratory - Chemistry and C hemistry - challengeon 04-08-2024 Bilirubin Ql (U) 1+ Negative [facility] Healthcare Glucose [Mass/Vol] Negative Negative [facility] Ketones Ql (U) Negative Negative [facility] pH (U) 7 [pH] 5.0 - 6.0 [facility] Specific gravity (U) [Rel density] 1.015 1.001 - 1.035 [facility] Laboratory - Hematology and Cell countson 04-08-2024 Hemoglobin Ql (U) + Negative [facility] Laboratory - Urinalysison Nitrite Ql (U) Negative Negative [facility] Protein Ql (U) 1+ Negative [facility] No Panel Informationon 04-08 Interpretation and review of laboratory results Abnormal [facility] Healthcare LEUKOCYTES 1+ Negative [facility] UROBILINOGEN 2+ 0.2 - 1.0 [facility] ED Note-Physicianon 10-29-19 ED Note-Physician Basic Information Time Seen: Alejandra Sun PA-C 10/28/2023 11:24 Chief Complaint c/o right knee [...] Rivera In 3 days 10/31/2023 EDT [address] [place] [address]- Business (1) Additional Instructions: MORRO HAUSER In 3 days [address] [place] [address]- [phone] Business (1) Additional Instructions: Patient Education Knee Sprain, Adult How to Use a Knee Immobilizer Radial Nerve Palsy Crutch Use, Adult, Eleg-uo-Rnsl Attestation I performed a subst (more content not included)... [facility] Comment on above: Result Comment: Elec tronically Signed By: Alejandra Sun PA-C\.ben\Date and Time Signed: 10/28/23 16:45 EDT\.br\Electronically Co-Signed By: Rupert Soriano DO\.ben\Date and Time Co-Signed: 10/29/23 08:08 EDT Consent for Treatmenton 0 Consent for Treatment [id number] [facility] Discharge Instructionson Discharge Instructions [id number] Normal [facility] ED Clinical Summaryon 2023 ED Clinical Summary (Inserted Image. Judith ble to display) [place] [id number] ED Clinical Summary Person Information Name: HEENA WANG Jannet/[facility] Age: 18 Years : 2005 Sex: Female Language: Australian PCP: MORRO HAUSER CNP Marital Status: Single [...] 10/28/2023 12:35:22 10/28/2023 12:35:22 10/28/2023 12:35:22 ADDRESS: [address] [place] [phone] [facility] DOC NOTES: MEDICAL INFORMATION: Prescriptions Given: PATIENT EDUCATION INFORMATION: Instructions: Knee Sprain, Adult; How to Use a Knee Immobilizer; Radial Nerve Palsy; Crutch Use, Adult, Zbhk-is-Ciwq Follow up: With: Address: When: Rayne Rivera [address] [place] [id number] Business (1) In 3 days 10/31/2023 With: Address: When: [address] [phone] Business (1) In 3 days DIAGNOSIS: 1:Strain of right knee Normal [facility] ED Patient Education Noteon 10-28-2023 ED [...] or lying down. General instructions ? Take niko-cxb-awtjwkx and prescription medicines only as told by [...] provider. Document Revised: 08/14/2022 Document Reviewed: 03/26/2020 [employer] Patient Education ? 2022 [employer] How to Use a Knee Immobilizer [...] by your (more content not included)... Normal [facility] ED Patient Summaryon 024 ED Patient Summary (Inserted Image. Judith ble to display) [facility] [address] [id number] Patient Discharge Instructions Person Information Name: HEENA WANG Age: 18 Years Arrival Date: 10/28/2023 11:07:53 Discharge Diagnosis: 1:Strain of right knee Primary Care Physician: MORRO HAUSER CNP Provider Information Primary Provider: Rupert Soriano DO [employer] Vertical:None The exam and treatment you received in the Emergency Department were for an urgent problem and are not intended as complete care. It is important that you follow up with a doctor, nurse practitioner, or physician?s safety assistant for ongoing care. If your symptoms [...] Instructions: With: Address: When: Rayne Rivera [address] [place] [address] Business (1) In 3 days 10/31/2023 With: Address: When: MORRO HAUSER [address] [place] [phone] [facility] (1) In 3 days In the event that this physician does not participate in your insurance network, please consult with your insurance company to find a nearby participating provider. Patient Education Materials: Knee Sprain, Adult; How to Use a Knee Immobilizer; Radial Nerve Palsy; Crutch Use, Adult, Urog-sp-Jsnl A MESSAGE TO ALL PATIENTS REGARDING OPIOIDS PRESCRIPTION OPIOIDS: WHAT YOU NEED TO KNOW Prescription opioids can be used to help relieve qrkwqfmy-ax-raarnb pain and are often prescribed following a [...] If y (more content not included)... Normal [facility] XR Knee Complete 4+ Views Ri khushi 10-28-2023 XR Knee Complete 4+ Views Right [...] mGy = na DAP = na Normal [facility] Quick Strepon 03-02-2023 S. pyogenes Org specific cx Ql (Throat) Negative [facility] Other Quick Strep [employer] Other US PELVISon 07-03-2022 US PELVIS EXAMINATION: US [...] JOSÉ MIGUEL LAM Date: 2022-07-03 16:20 Normal [facility] Basophils Auto (Bld) [#/Vol] Ordered By: Melo Diana on 06-09-2022 Basophils (Bld) [#/Vol] 0.0 10*3/uL 0.0-0.2 [facility] Basophils/100 WBC Auto (Bld) Ordered By: Melo Diana on 06-09-2022 Basophils/100 WBC (Bld) 0.1 % . [facility] Creatinine and Glomerular fi ltration rate.predicted panel (S/P/Bld)Ordered By: Melo Diana on 06-09-2022 Creatinine [Mass/Vol] 0.61 mg/dL 0.44-1.03 [facility] Eosinophils Auto (Bld) [#/Vo l]Ordered By: Melo Diana on 06-09-2022 Eosinophils (Bld) [#/Vol] 0.0 10*3/uL 0.0-0.45 [facility] Eosinophils/100 WBC Auto (Bl d)Ordered By: Melo Diana on 06-09-2022 Eosinophils/100 WBC (Bld) 0.0 % . [facility] Erythrocyte distribution wid th Auto (RBC) [Ratio]Ordered By: Melo Diana on 06-09-2022 Erythrocyte distribution width (RBC) [Ratio] 13.3 % 11.9-15.3 [facility] Estimated glomerular filtrat ion rate (GFR) non- AmericanOrdered By: Melo Diana on 06-09-2022 GFR/1.73 sq M.predicted among non-blacks MDRD (S/P/Bld) [Vol rate/Area] > 60 mL/Min [facility] Hematocrit Auto (Bld) [Volum e fraction]Ordered By: Melo Diana on 06-09-2022 Hematocrit (Bld) [Volume fraction] 36.1 % 34.0-46.4 [facility] Hemoglobin [Mass/volume] in BloodOrdered By: Melo Diana on 06-09-2022 Hemoglobin (Bld) [Mass/Vol] 12.1 g/dL 11.8-15.4 [facility] Leukocytes [#/volume] correc gloria for nucleated erythrocytes in Blood by Automated counOrdered By: Melo Diana on 06-09-2022 WBC corrected for nucl RBC Auto (Bld) [#/Vol] 9.8 10*3/uL 3.8-11.6 [facility] Lymphocytes Auto (Bld) [#/Vo l]Ordered By: Melo Diana on 06-09-2022 Lymphocytes (Bld) [#/Vol] 1.6 10*3/uL 1.00-4.8 [facility] Lymphocytes/100 WBC Auto (Bl d)Ordered By: Melo Diana on 06-09-2022 Lymphocytes/100 WBC (Bld) 16.1 % . [facility] MCH Auto (RBC) [Entitic mass ]Ordered By: Melo Diana on 06-09-2022 MCH (RBC) [Entitic mass] 29.4 pg 24.7-34.3 [facility] MCHC Auto (RBC) [Mass/Vol]Or dered By: Melo Diana on 06-09-2022 MCHC (RBC) [Mass/Vol] 33.5 g/dL 32.0-35.0 [facility] MCV Auto (RBC) [Entitic vol] Ordered By: Melo Diana on 06-09-2022 MCV (RBC) [Entitic vol] 87.8 fL 80-100 [facility] Monocytes Auto (Bld) [#/Vol] Ordered By: Melo Diana on 06-09-2022 Monocytes (Bld) [#/Vol] 1.0 10*3/uL 0.0-0.8 [facility] Monocytes/100 WBC Auto (Bld) Ordered By: Melo Diana on 06-09-2022 Monocytes/100 WBC (Bld) 10.4 % . [facility] Neutrophils Auto (Bld) [#/Vo l]Ordered By: Melo Diana on 06-09-2022 Neutrophils (Bld) [#/Vol] 7.2 10*3/uL 1.8-7.7 [facility] Neutrophils/100 WBC Auto (Bl d)Ordered By: Melo Diana on 06-09-2022 Neutrophils/100 WBC (Bld) 73.4 % . [facility] No Panel InformationOrdered By: Melo Diana on 06-09-2022 Estimated GFR () > 60 mL/Min [facility] Comment on above: GFR estimated refere nce range: According to KDOQI guidelines, <60 ml/min/1.73m2 is sufficient to diagnose a patient with chronic kidney disease. Pharmacy Creatinine Clearance (Chem 181.95 [facility] Nucleated erythrocytes [Pres ence] in Blood by Automated countOrdered By: Melo Diana on 06-09-2022 Nucleated RBC Auto Ql (Bld) 0.1 /100{WBC} 0-0.5 [facility] Platelet mean volume Auto (B ld) [Entitic vol]Ordered By: Melo Diana on 06-09-2022 Platelet mean volume (Bld) [Entitic vol] 9.5 fL 6.3-10.7 [facility] Platelets Auto (Bld) [#/Vol] Ordered By: Melo Diana on 06-09-2022 Platelets (Bld) [#/Vol] 273 10*3/uL 150-450 [facility] RBC Auto (Bld) [#/Vol]Ordere d By: Melo Diana on 06-09-2022 RBC (Bld) [#/Vol] 4.11 10*6/uL 3.60-5.00 [facility] Serum or plasma anion gap de terminationOrdered By: Melo Diana on 06-09-2022 Anion gap [Moles/Vol] 11.8 mmol/L 6.0-15.0 [facility] Serum or plasma calcium diomedes urement (mass/volume)Ordered By: Melo Diana on 06-09-2022 Calcium [Mass/Vol] 8.3 mg/dL 8.2-10.2 [facility] Serum or plasma chloride omar surement (moles/volume)Ordered By: Melo Diana on 06-09-2022 Chloride [Moles/Vol] 98 mmol/L 95-114 [facility] Serum or plasma glucose diomedes urement (mass/volume)Ordered By: Melo Diana on 06-09-2022 Glucose [Mass/Vol] 97 mg/dL 70-100 [facility] Comment on above: ADA recommended refe rence rangeRandom Glucose Reference Range is dependent on time and content of last meal. Glucose of more than 200 mg/dL in a nonstressed, ambulatory subject supports the diagnosis of Diabetes Mellitus. Serum or plasma potassium me asurement (moles/volume)Ordered By: Melo Diana on 06-09-2022 Potassium [Moles/Vol] 4.0 mmol/L 3.5-5.1 [facility] Serum or plasma sodium measu rement (moles/volume)Ordered By: Melo Diana on 06-09-2022 Sodium [Moles/Vol] 132 mmol/L 136-146 [facility] Serum or plasma total carbon dioxide measurement (moles/volume)Ordered By: Melo Diana on 06-09-2022 CO2 [Moles/Vol] 26.2 mmol/L 22.0-30.[address] [facility] Serum or plasma urea nitroge n measurement (mass/volume)Ordered By: Melo Diana on 06-09-2022 Urea nitrogen [Mass/Vol] 11 mg/dL 9-23 [facility] WBC Auto (Bld) [#/Vol]Ordere d By: Melo Diana on 06-09-2022 WBC (Bld) [#/Vol] 9.8 10*3/uL 3.8-11.6 [facility] Activated partial thrombopla stin time (aPTT) in platelet poor plasma by coagulation aOrdered By: Lorelei Avery on 06-05-2022 aPTT Coag (PPP) [Time] 32.1 s 25.1-36.5 [facility] Aerobic cultureOrdered By: Zehra Avery on 06-05-2022 Bacteria identified Aer cx Nom (Unsp spec) No Growth [address] [facility] Albumin [Mass/volume] in Cer ebral spinal fluidOrdered By: Lorelei Avery on 06-05-2022 Albumin (CSF) [Mass/Vol] 35 mg/dL 7- [facility] Albumin [Mass/volume] in Ser um or PlasmaOrdered By: Lorelei Avery on 06-05-2022 Albumin [Mass/Vol] 4.3 g/dL 3.9-5.0 [facility] Anaerobic cultureOrdered By: Lorelei Avery on 06-05-2022 Bacteria identified Anaer cx Nom (Unsp spec) No Anaerobes Isolated 3 Days [facility] CSF IgG/albumin ratioOrdered By: Lorelei Avery on 06-05-2022 IgG/Albumin (CSF) [Mass ratio] 0.24 0.00-0.25 [facility] Cerebrospinal fluid IgG inde xOrdered By: Lorelei Avery on 06-05-2022 IgG clearance/Albumin clearance (S+CSF) [Ratio] 0.8 0.0-0.7 [facility] Cerebrospinal fluid eosinoph il percentageOrdered By: Lorelei Avery on 06-05-2022 Eosinophils/100 WBC (CSF) 0 % 0-0 [facility] Cerebrospinal fluid lymphocy te percentageOrdered By: Lorelei Avery on 06-05-2022 Lymphocytes/Leukocytes Manual cnt (CSF) [Pure # fraction] 87 % 40-80 [facility] Cerebrospinal fluid monocyte percentageOrdered By: Lorelei Avery on 06-05-2022 Monocytes/100 WBC (CSF) 9 % 15-45 [facility] Cerebrospinal fluid neutroph il percentageOrdered By: Lorelei Avery on 06-05-2022 Neutrophils/100 WBC (CSF) 4 % 0-6 [facility] Cerebrospinal fluid post-suraj trifugation appearance determinationOrdered By: Lorelei Avery on 06-05-2022 Appearance (Spun CSF) Colorless Colorless [facility] Cerebrospinal fluid sample t ube volume measurementOrdered By: Lorelei Avery on 06-05-2022 Specimen volume (CSF) 14.0 mL [facility] Color CSFOrdered By: Lorelei Avery on 06-05-2022 Color (CSF) Colorless Colorless [facility] Gram stain for investigation of transfusion reactionOrdered By: Lorelei Avery on 06-05-2022 Microscopic observation Gram stain Nom (Unsp spec) [facility] HIV 1 and HIV-2 antibody ass ay with HIV-1 p24 antigen detectionOrdered By: Lorelei Avery on 06-05-2022 HIV 1+2 Ab+HIV1 p24 Ag IA Ql Non-Reactive Non Reactive [facility] Comment on above: HIV NegativeHIV-1/HI V-2 antibodies and HIV-1 p24 antigen were NOTdetected. There is no laboratory evidence of HIV infection.Performed at: [facility] - [facility] [address] [id number] Director: Steve Fatima PhD, Phone: [phone] IgG [Mass/volume] in Cerebra l spinal fluidOrdered By: Lorelei Avery on 06-05-2022 IgG (CSF) [Mass/Vol] 8.3 mg/dL 0.0-6.7 [facility] IgG [Mass/volume] in Serum o r PlasmaOrdered By: Lorelei Avery on 06-05-2022 IgG [Mass/Vol] 1274 mg/dL [phone] [facility] IgG synthesis rate [Mass/mily e] in Serum and CSF by calculationOrdered By: Lorelei Avery on 06-05-2022 IgG synthesis rate Calc (S+CSF) [Mass/Time] 13.9 mg/day -9.9 TO +3.3 [facility] Comment on above: Performed at: [facility] - [facility] [address] [id number] Director: Steve Fatima PhD, Phone: [phone] Laboratory - CoagulationOrde red By: Lorelei Avery on 06-05-2022 PT Coag (PPP) [Time] 13.4 s 9.0-12.9 [facility] Manual cerebrospinal fluid e rythrocytes count (number/volume)Ordered By: Lorelei Avery on 06-05-2022 RBC Manual cnt (CSF) [#/Vol] 0 /uL [facility] Comment on above: The reference interv al and other method performance specifications have not been established for this body fluid. The test result must be integrated into the clinical context for interpretation. No Panel InformationOrdered By: Lorelei Avery on 06-05-2022 CSF Appearance Clear Clear [facility] CSF Glucose 46 mg/dL 40-70 [facility] CSF Total Protein 59 mg/dL 15-45 [facility] CSF Tube Number Tube number: 1 [facility] No Panel InformationOrdered By: Kt Pearson on 06-05-2022 Anti-Nuclear Antibody Comment 2 See comment . [facility] Comment on above: For more information about Hep-2 cell patterns useWithin3patterState of Ambition.[employer], the official website for the InternationalConsensus on Antinuclear Antibody (LIZZY) Patterns (ICAP). ----A positive LIZZY result may occur in healthy individuals (lowtiter) or be associated with a variety of diseases. Seeinterpretation chart which is not all inclusive:Pattern Antigen Detected Suggested Disease Association Homogeneous DNA(ds,ss), SLE - High titers Nucleosomes, Histones Drug-induced SLE Speckled Sm, SERVICE DEVELOPER, SCL-70, SLE,MCTD,PSS (diffuse form), SS-A/SS-B Sjogrens Nucleolar SCL-70, PM-1/SCL High titers Scleroderma, PM/DM Centromere Centromere PSS (limited form) w/Crest syndrome variable Nuclear Dot [id number] Primary Biliary Cirrhosis Nuclear GP210, Primary Biliary CirrhosisMembrane miranda A,B,C Performed at: [facility] [address] [id number] Director: Steve Fatima PhD, Phone: [phone] SERVICE DEVELOPER Antibody 0.2 AI 0.0-0.9 [facility] Nucleated cells [#/volume] i n Cerebral spinal fluid by Manual countOrdered By: Lorelei Avery on 06-05-2022 Nucleated cells Manual cnt (CSF) [#/Vol] 0.16 10*3/uL 0-5 [facility] Comment on above: Critical valueresult calledat 1732 on 06/05/22 Platelet poor plasma interna tional normalized ratio (INR) by coagulation assay (relatOrdered By: Lorelei Avery on 06-05-2022 INR Coag (PPP) [Relative time] 1.2 {INR} [facility] Comment on above: INR Therapeutic Rang e A) Pre- and Peroperative OAT started two weeks before surgery. NOT HIP SURGERY: 1.5 - 2.5 HIP SURGERY: 2 - 3B) Primary and secondary prevention of venous THROMBOSIS: 2 - 3C) Active venous thrombosis, pulmonary embolismand prevention of recurrent venous thrombosis: 2 - 3D) Prevention of arterial thromboembolismincluding patients with mechanical heart valves: 3 - 4.5 Scl-70 antibody assayOrdered By: Kt Pearson on 06-05-2022 SCL-70 extractable nuclear Ab IA Qn (S) 0.2 AI 0.0-0.9 [facility] Comment on above: Performed at: [facility] [address] [id number] Director: Steve Fatima PhD, Phone: [phone] Serum Sjogrens syndrome-A ex tractable nuclear antibody assay (units/volume)Ordered By: Kt Pearson on 06-05-2022 Sjogrens syndrome-A extractable nuclear Ab Qn (S) 0.2 AI 0.0-0.9 [facility] Serum Sjogrens syndrome-B ex tractable nuclear antibody assay (units/volume)Ordered By: Kt Pearson on 06-05-2022 Sjogrens syndrome-B extractable nuclear Ab Qn (S) <0.2 AI 0.0-0.9 [facility] Serum Zamora extractable nucl ear antigen (HERNESTO) antibody assay (units/volume)Ordered By: Kt Pearson on 06-05-2022 Zamora extractable nuclear Ab Qn (S) <0.2 AI 0.0-0.9 [facility] Serum angiotensin converting enzyme (SUSIE) measurementOrdered By: Kt Pearson on 06-05-2022 Angiotensin converting enzyme [Catalytic activity/Vol] 26 U/L 14-82 [facility] Comment on above: Performed at: [facility] [address] [id number] Director: Steve Fatima PhD, Phone: [phone] Serum homogeneous pattern an tinuclear antibody (LIZZY) titerOrdered By: Kt Pearson on 06-05-2022 Homogenous nuclear Ab pattern (S) [Titer] 1:160 . [facility] Comment on above: ICAP nomenclature: A C-1 Serum nuclear antibody titer Ordered By: Kt Pearson on 06-05-2022 Nuclear Ab (S) [Titer] Positive . [facility] Comment on above: Negative <1:80 Viki frost 1:80 Positive >1:80 Chlamydia trachomatis DNA [P resence] in Specimen by TERESA with probe detectionOrdered By: Isaías Pan on 06-04-2022 C. trachomatis DNA TERESA+probe Ql (Unsp spec) Negative Negative [facility] Fungal cultureOrdered By: Mónica Pan on 06-04-2022 Fungus identified Cx Nom (Unsp spec) [facility] Herpes simplex virus (HSV) c ulture with typingOrdered By: Isaías Pan on 06-04-2022 HSV identified Org specific cx Nom (Unsp spec) See comment . [facility] Comment on above: Positive for Herpes simplex virus type-2. Typing wasconfirmed by monoclonal antibody microscopicimmunofluorescence.Performed at: [facility] [id number] Director: Steve Fatima PhD, Phone: [phone] Neisseria gonorrhoeae DNA [P resence] in Specimen by TERESA with probe detectionOrdered By: Isaías Pan on 06-04-2022 N. gonorrhoeae DNA TERESA+probe Ql (Unsp spec) Negative Negative [facility] Trichomonas vaginalis DNA [P resence] in Specimen by TERESA with probe detectionOrdered By: Isaías Pan on 06-04-2022 T. vaginalis DNA TERESA+probe Ql (Unsp spec) Negative Negative [facility] Comment on above: Performed at: =[address] [id number] Director: Evelyn Arnold MD, Phone: [phone] Trichomonas vaginalis detect ion by wet preparationOrdered By: Isaías Pan on 06-04-2022 T. vaginalis Wet prep Ql (Unsp spec) [facility] Albumin [Mass/volume] in Ser um or PlasmaOrdered By: Ravi Zhang on 06-02-2022 Albumin [Mass/Vol] 3.5 g/dL 3.2-5.5 [facility] C reactive protein [Mass/vol ume] in Serum or PlasmaOrdered By: Ravi Zhang on 06-02-2022 CRP [Mass/Vol] 0.6 mg/dL 0.0-1.0 [facility] Direct bilirubin measurement Ordered By: Ravi Zhang on 06-02-2022 Bilirubin.direct [Mass/Vol] 0.2 mg/dL 0.0-0.4 [facility] Erythrocyte sedimentation ra te by Photometric methodOrdered By: Ravi Zhang on 06-02-2022 ESR Photometric method (Bld) [Velocity] 26 mm/hr 0-19 [facility] Folate [Mass/volume] in Seru m or PlasmaOrdered By: Ravi Zhang on 06-02-2022 Folate [Mass/Vol] 16.6 ng/mL >5.9 [facility] Comment on above: Folate reference ran ge: >5.9 ng/mlThe WHO technical consultation on folate and vitamin [id number] has determined that folate concentrations lessthan 4 ng/ml are considered deficient. Globulin Calc (S) [Mass/Vol] Ordered By: Ravi Zhang on 06-02-2022 Globulin (S) [Mass/Vol] 3.7 g/dL [facility] Glucose mean value [Mass/vol ume] in Blood Estimated from glycated hemoglobinOrdered By: Ravi Zhang on 06-02-2022 Average glucose Estimated from glycated hemoglobin (Bld) [Mass/Vol] 103 mg/dL [facility] Hemoglobin A1c percentageOrd ered By: Ravi Zhang on 06-02-2022 HbA1c (Bld) [Mass fraction] 5.2 % 4.3-5.6 [facility] Comment on above: Increased risk for d iabetes: 5.7 - 6.4diabetes: >6.4glycemic control for adults with diabetes: <7.0 Laboratory - Chemistry and C hemistry - challengeOrdered By: Ravi Zhang on 06-02-2022 Cobalamin (Vitamin B12) [Mass/Vol] 368 pg/mL 180-914 [facility] Magnesium [Mass/Vol] 2.1 mg/dL 1.6-2.6 [facility] Phosphate [Mass/volume] in S [place] or PlasmaOrdered By: Ravi Zhang on 06-02-2022 Phosphate [Mass/Vol] 3.8 mg/dL 2.5-4.6 [facility] Protein [Mass/volume] in Ser um or PlasmaOrdered By: Ravi Zhang on 06-02-2022 Protein [Mass/Vol] 7.2 g/dL 6.1-7.9 [facility] Serum or plasma alanine hooper otransferase measurement without P-5'-P (enzymatic activiOrdered By: Ravi Zhang on 06-02-2022 ALT No additional P-5'-P [Catalytic activity/Vol] 26 U/L 10-60 [facility] Serum or plasma albumin/glob ulin mass ratioOrdered By: Ravi Zhang on 06-02-2022 Albumin/Globulin [Mass ratio] 0.9 {ratio} [facility] Serum or plasma alkaline keven sphatase measurement (enzymatic activity/volume)Ordered By: Ravi Zhang on 06-02-2022 ALP [Catalytic activity/Vol] 60 U/L 32-92 [facility] Serum or plasma aspartate am inotransferase measurement (enzymatic activity/volume)Ordered By: Ravi Zhang on 06-02-2022 AST [Catalytic activity/Vol] 31 U/L 10-42 [facility] Serum or plasma non-glucuron idated bilirubin measurement (mass/volume)Ordered By: Ravi Zhang on 06-02-2022 Bilirubin.indirect [Mass/Vol] 0.7 mg/dL [facility] Serum or plasma thyroxine (T 4) measurement (mass/volume)Ordered By: Ravi Zhang on 06-02-2022 T4 [Mass/Vol] 9.70 ug/dL 5.39-11.82 [facility] Serum or plasma total biliru bin measurement (mass/volume)Ordered By: Ravi Zhang on 06-02-2022 Bilirubin [Mass/Vol] 0.9 mg/dL 0.3-1.2 [facility] TSH DL <= 0.005 mIU/L QnOrde red By: Ravi Zhang on 06-02-2022 TSH Qn 0.85 m[IU]/L 0.45-5.33 [facility] Thyroxine (T4) free [Mass/vo lume] in Serum or PlasmaOrdered By: Ravi Zhang on 06-02-2022 Free T4 [Mass/Vol] 0.96 ng/dL 0.61-1.12 [facility] MICRO OTHER TESTSOrdered By: Sree Reeves on 11-24-2021 Rapid COV Int NEG Ctl Pass (11/24/21 10:53 AM) Normal FT Man UA SS Rapid COV Int POS Ctl Pass (11/24/21 10:53 AM) Normal FT Man UA SS SARS-CoV-2 (COVID-19) RNA TERESA+probe Ql (Unsp spec) Not Detected (11/24/21 10:53 AM) Normal Not Detected [facility] Man UA SS Vital Signs Date Time Vital Sign Value Performing Clinician Facility 05-20-2024 10:23-0500 Body mass index (BMI) [Ratio] 23.82 kg/m2 [facility] Nurse [facility] 05-20-2024 10:23-0500 Body weight 75.3 kg [facility] Nurse [facility] 04-08-2024 18:25-0500 Body mass index (BMI) [Ratio] 26.54 kg/m2 Samra Constantia DO Work Phone: [facility] 04-08-2024 18:25-0500 Body temperature 98.2 [degF] Samra Constantia DO Work Phone: [facility] 04-08-2024 18:25-0500 Body weight 83.92 kg Samra Constantia DO Work Phone: [facility] 04-08-2024 18:25-0500 Diastolic blood pressure 78 mm[Hg] Samra Constantia DO Work Phone: [facility] 04-08-2024 18:25-0500 Heart rate 103 /min Samra Constantia DO Work Phone: [facility] 04-08-2024 18:25-0500 SaO2% (BldA) [Mass fraction] 98 % Samra Constantia DO Work Phone: [facility] 04-08-2024 18:25-0500 Systolic blood pressure 118 mm[Hg] Samra Constantia DO Work Phone: [facility] 02-11-2024 10:00-0400 Body height 177.8 cm [facility] Work Phone: [facility] 02-11-2024 10:00-0400 Body mass index (BMI) [Ratio] 26.4 kg/m2 [facility] Work Phone: [facility] 02-11-2024 10:00-0400 Body weight 83.46 kg [facility] Work Phone: [facility] 10-28-2023 11:24-0400 Body temperature 98.42 [degF] Rupert Soriano [facility] 10-28-2023 11:24-0400 Diastolic blood pressure 73 mm[Hg] Rupert Wallacee [facility] 10-28-2023 11:24-0400 Heart rate 95 /min Rupert Wallacee [facility] 10-28-2023 11:24-0400 Respiratory rate 16 /min Rupert Wallacee [facility] 10-28-2023 11:24-0400 SaO2% (BldA) [Mass fraction] 100 % Rupert Wallacee [facility] 10-28-2023 11:24-0400 Systolic blood pressure 131 mm[Hg] Rupert Wallacee [facility] 03-02-2023 11:25-0400 Body height 176.53 cm Racheal Greenberg Other [facility] Other 10-13-2023 11:25-0400 Body mass index (BMI) [Ratio] 28.31 kg/m2 Racheal Greenberg Other [facility] Other 03-02-2023 11:25-0400 Body temperature 98.2 [degF] Racheal Greenberg Other [employer] Other 03-02-2023 11:25-0400 Body weight 88.23 kg Racheal Greenberg Other [facility] Other 03-02-2023 11:25-0400 Respiratory rate 18 /min Racheal Greenberg Other [facility] Other 03-02-2023 11:25-0400 SaO2% (BldA) [Mass fraction] 99 % Racheal Greenberg Other [facility] Other 01-07-2023 11:18-0400 Body height 182.88 cm [employer] [facility] [employer] Work Phone: [facility] 01-07-2023 11:18-0400 Body temperature 98.7 [degF] [employer] Morro Easterwood Work Phone: [facility] 01-07-2023 11:18-0400 Body weight 87.85 kg [employer] Morro Easterwood Work Phone: [facility] 01-07-2023 11:18-0400 Diastolic blood pressure 93 mm[Hg] [employer] Morro Easterwood Work Phone: [facility] 01-07-2023 11:18-0400 Heart rate 102 /min [employer] Morro Easterwood Work Phone: [facility] 01-07-2023 11:18-0400 Respiratory rate 20 /min [employer] Morro Easterwood Work Phone: [facility] 01-07-2023 11:18-0400 SaO2% (BldA) [Mass fraction] 99 % [employer] Morro Beyererherb Work Phone: [facility] 01-07-2023 11:18-0400 Systolic blood pressure 146 mm[Hg] [employer] Morro Beyererwood Work Phone: [facility] 06-15-2022 08:13-0500 Blood Pressure Location Iman Lue [facility] 06-15-2022 08:13-0500 Diastolic blood pressure 88 mm[Hg] Iman Lue [facility] 06-15-2022 08:13-0500 Heart rate 93 /min Iman Lue [facility] 06-15-2022 08:13-0500 Systolic blood pressure 125 mm[Hg] Iman Lue [facility] 06-15-2022 08:13-0500 weight 1.73 Iman Lue [facility] Comment on above: Result Comment: ^~:!ZScore Source -[facility] 06-15-2022 08:13-0500 Weight Percentile 95.83 % Iman Lue [facility] Comment on above: Result Comment: ^~:!Percentile Source -[facility] 06-14-2022 14:00-0500 Body height 176.53 cm [employer] Other [employer] Other 06-14-2022 14:00-0500 Body mass index (BMI) [Ratio] 26.49 kg/m2 [employer] Other [facility] Other 06-14-2022 14:00-0500 Body temperature 98.4 [degF] Morro Pepitoerwood Other [employer] Other 06-14-2022 14:00-0500 Body weight 82.56 kg Morro Pepitoerwood Other [employer] Other 06-14-2022 14:00-0500 Diastolic blood pressure 82 mm[Hg] Morro Pepitoerwood Other [employer] Other 06-14-2022 14:00-0500 Respiratory rate 20 /min Morro Pepitoerwood Other [employer] Other 06-14-2022 14:00-0500 SaO2% (BldA) [Mass fraction] 98 % Morro Talon Other [facility] Other 06-14-2022 14:00-0500 Systolic blood pressure 120 mm[Hg] Morro Pepitoerwood Other [employer] Other 06-09-2022 17:36-0500 Body temperature 97.8 [degF] DO Ravi Lindbloom Work Phone: [facility] 06-09-2022 17:36-0500 Diastolic blood pressure 65 mm[Hg] DO Ravi Lindbloom Work Phone: [facility] 06-09-2022 17:36-0500 Heart rate 78 /min DO Ravi Lindbloom Work Phone: [facility] 06-09-2022 17:36-0500 Respiratory rate 18 /min DO Ravi Lindbloom Work Phone: [facility] 06-09-2022 17:36-0500 SaO2% (BldA) [Mass fraction] 96 % DO Ravi Braroom Work Phone: [facility] 06-09-2022 17:36-0500 Systolic blood pressure 129 mm[Hg] DO Ravi Braroom Work Phone: [facility] 06-09-2022 03:16-0500 Body weight 83.2 kg DO Ravi Maykeloom Work Phone: [facility] 06-06-2022 13:58-0500 Body height 187.96 cm DO Ravi Maykeloom Work Phone: [facility] 05-24-2022 15:07-0500 Blood Pressure Location Loreto LOMAXLEY [facility] 05-24-2022 15:07-0500 Body temperature 98.06 [degF] Loreto LOMAXLEY [facility] 05-24-2022 15:07-0500 bodymassindex 0.85 Loreto DONALDSON [facility] Comment on above: Result Comment: ^~:!ZScore Source -[facility] 05-24-2022 15:07-0500 Diastolic blood pressure 70 mm[Hg] Loreto ANIKA [facility] 05-24-2022 15:07-0500 Heart rate 72 /min Loreto DONALDSON [facility] 05-24-2022 15:07-0500 Height/Length Percentile 99.82 Loreto LOMAXLEY [facility] Comment on above: Result Comment: ^~:!Percentile Source -[facility] 05-24-2022 15:07-0500 Height/Length Z-Score 2.91 Loreto LOMAXLEY [facility] Comment on above: Result Comment: ^~:!Anuj [facility] 05-24-2022 15:07-0500 SaO2% (BldA) [Mass fraction] 99 % Loreto DONALDSON [facility] 05-24-2022 15:07-0500 Systolic blood pressure 110 mm[Hg] Loreto DONALDSON [facility] 05-24-2022 15:07-0500 weight 1.68 Loreto DONALDSON [facility] Comment on above: [facility] 15:07-0500 Weight Percentile 95.39 % Loreto DONALDSON [facility] Comment on above: Result Comment: ^~:!Percentile Source -[facility] 01-05-2022 09:00-0400 Body height 176.53 cm Morro Trippin In Other [employer] [facility] [employer] Other 01-05-2022 09:00-0400 Body mass index (BMI) [Ratio] 26.34 kg/m2 Morro Trippin In Other [employer] Other 01-05-2022 09:00-0400 Body temperature 98 [degF] Morro Trippin In Other [employer] Other 01-05-2022 09:00-0400 Body weight 82.1 kg Morro Trippin In Other [employer] Other 01-05-2022 09:00-0400 Diastolic blood pressure 78 mm[Hg] Morro Trippin In Other [employer] Other 01-05-2022 09:00-0400 Respiratory rate 20 /min Morro Easterwood Other [employer] Other 01-05-2022 09:00-0400 SaO2% (BldA) [Mass fraction] 99 % Morro Easterwood Other [employer] Other 01-05-2022 09:00-0400 Systolic blood pressure 120 mm[Hg] Morro Easterwood Other [employer] Other 11-22-2021 11:30-0400 Body height 176.53 cm Morro Easterwood Other [employer] Other 11-22-2021 11:30-0400 Body mass index (BMI) [Ratio] 25.62 kg/m2 Morro Easterwood Other [employer] Other 11-22-2021 11:30-0400 Body temperature 98.1 [degF] Morro Easterwood Other [employer] Other 11-22-2021 11:30-0400 Body weight 79.83 kg Morro Easterwood Other [employer] Other 11-22-2021 11:30-0400 Diastolic blood pressure 80 mm[Hg] Morro Easterwood Other [employer] Other 11-22-2021 11:30-0400 Respiratory rate 20 /min Morro Easterwood Other [employer] Other 11-22-2021 11:30-0400 SaO2% (BldA) [Mass fraction] 99 % Morro Easterwood Other [employer] Other 11-22-2021 11:30-0400 Systolic blood pressure 120 mm[Hg] Morro Pepitoerherb Other [employer] Other 09-13-2021 15:00-0400 Body height 176.53 cm Morro Hauser Other [employer] Other 09-13-2021 15:00-0400 Body mass index (BMI) [Ratio] 25.76 kg/m2 Morro Hauser Other [employer] Other 09-13-2021 15:00-0400 Body temperature 98.4 [degF] Morro Hauser Other [employer] Other 09-13-2021 15:00-0400 Body weight 80.29 kg Morro Hauser Other [employer] Other 09-13-2021 15:00-0400 Diastolic blood pressure 70 mm[Hg] Morro Talon Other [employer] Other 09-13-2021 15:00-0400 Respiratory rate 20 /min Morro Hauser Other [employer] Other 09-13-2021 15:00-0400 SaO2% (BldA) [Mass fraction] 98 % Morro Hauser Other [employer] Other 09-13-2021 15:00-0400 Systolic blood pressure 108 mm[Hg] Morro Pepitoerherb Other [employer] Other Encounters Encounter Date Encounter Type Care Provider Facility Start: 05-20-2024 End: 05-20-2024 ambulatory [facility] Madhu Nurse [facility] Comment on above: GA: 11w0d Start: 05-14-2024 End: 05-14-2024 ambulatory Percy Johan Mendoza Facility:[facility] Start: 04-15-2024 End: 04-15-2024 Office outpatient visit 15 minutes Benji Madhu DO Work Phone: [facility] Comment on above: Encounter for survei llance of other contraceptive Start: 04-08-2024 End: 04-08-2024 ambulatory SAMRA Rodriguez CUTLER Not Available Start: 04-08-2024 End: 04-08-2024 Office outpatient visit 15 minutes Samra Michael Constantia DO Work Phone: [facility] Comment on above: Dysuria (Primary Dx) ; Acute cystitis without hematuria Start: 02-11-2024 End: 02-11-2024 Bamboo flowsheet Sampson Ayala PA Work Phone: [facility] Start: 02-11-2024 End: 02-11-2024 Bamboo flowsheet Sampson Ayala PA Work Phone: [facility] Start: 02-11-2024 End: 02-11-2024 Patient encounter procedure Sampson Vazquez [place] PA Work Phone: [facility] Comment on above: Status post arthrosc opy of right knee (Primary Dx) Start: 02-11-2024 End: 02-11-2024 ambulatory SAMPSON Vazquez LUCY Not Available Start: 12-06-2023 End: 12-06-2023 ambulatory RAYNE RIVERA Not Available Start: 11-28-2023 End: 11-28-2023 Patient encounter procedure Sampson Vazquez Lucy [facility] Start: 11-12-2023 End: 11-12-2023 ambulatory SAMPSON Vazuqez LUCY Not Available Start: 10-28-2023 End: 10-28-2023 Emergency department patient visit Rupert Soriano [facility] Start: 03-02-2023 End: 03-02-2023 ambulatory Racheal Greenberg Other [employer] Other Start: 03-02-2023 Office outpatient vi sit 15 minutes Racheal Greenberg [facility] Start: 01-07-2023 End: 01-07-2023 Emergency department patient visit [employer] Morro Pepitocaleb Work Phone: [facility] Work Phone: Start: 11-15-2022 End: 11-25-2022 Pre-admission assessment Carlin Fuentes [facility] Start: 08-16-2022 End: 08-16-2022 ambulatory Morro Pepitocaleb Other [employer] Other Start: 08-16-2022 Telephone encounter Morro Hauser [facility] Start: 07-03-2022 End: 07-04-[address] JOSÉ MIGUEL LAM Facility: Start: 06-15-2022 End: 06-15-2022 Patient encounter procedure Iman Gomez [facility] Start: 06-14-2022 End: 06-14-2022 ambulatory Morro Amariliswood Other [employer] Other Start: 06-14-2022 Office outpatient vi sit 40 minutes Morro Olmoswood [facility] Start: 06-09-2022 End: 06-09-2022 ambulatory Morro Pepitoerwood Other [employer] Other Start: 06-09-2022 [facility] Start: 06-02-2022 End: 06-09-2022 Evaluation and management of inpatient DO Ravi Zhang Work Phone: [facility] Work Phone: Start: 05-24-2022 End: 05-24-2022 Patient encounter procedure Loreot DONALDSON [facility] Start: 01-05-2022 End: 01-05-2022 ambulatory Morro Easterwood Other [employer] Other Start: 01-05-2022 Office outpatient vi sit 15 minutes Morro Easterwood [facility] Start: 11-24-2021 End: 11-24-2021 ambulatory Morro Easterwood Other [employer] Other Start: 11-24-2021 Telephone encounter Morro Easterwood [facility] Start: 11-24-2021 End: 02-22-2022 Recurring MORRO EASTERWOOD [facility] Start: 11-22-2021 End: 11-22-2021 ambulatory Morro Easterwood Other [employer] Other Start: 11-22-2021 Office outpatient vi sit 15 minutes Morro Easterwood [facility] Start: 09-13-2021 End: 09-13-2021 ambulatory Morro Easterwood Other [employer] Other Start: 09-13-2021 Office outpatient vi sit 15 minutes Morro Easterwood [facility] Procedures Date Procedure Procedure Detail Performing Clinician Start: 05-20-2024 Urine test visual color cmprsn meths Benji Leung DO Work Phone: Start: 04-08-2024 Urnls dip stick/tabl et rgnt auto w/o microscopy Bryson Leslie DO Work Phone: Start: 01-07-2023 X-ray of left ankle APR N Morro Hauser Work Phone: Start: 06-06-2022 MRI of cervical spin e with contrast DO Ravi Zhang Work Phone: Start: 06-05-2022 Aerobic microbial culture DO Ravi Braroom Work Phone: Start: 06-05-2022 Anaerobic microbial culture DO Ravi Ojedam Work Phone: Start: 06-05-2022 Investigation of transfusion reaction DO Ravi Braroom Work Phone: Start: 06-05-2022 MRI of head DO Angy Zhang Work Phone: Start: 06-04-2022 Mycology culture DO Beryl Zhang Work Phone: Start: 06-04-2022 Trichomonas vaginali s detection DO Ravi Braroom Work Phone: Start: 06-04-2022 Computed tomography of abdomen and pelvis with contrast DO Ravi Ojedam Work Phone: Start: 06-03-2022 MRI of thoracic spin e with contrast DO Ravi Ojedam Work Phone: Plan of Treatment Date Care Activity Detail Author Start: 06-17-2024 End: 06-17-2024 Patient encounter procedure 06/17/2024 11:10 AM EST Routine [facility] [address] [place] [id number] Benji Leung, DO [address] [place] [address] [facility] Start: 05-20-2024 End: 05-20-2025 ABO/Rh ABO/Rh Lab Routine Missed menses , unspecified gestational age Expected: 05/20/2024 (Approximate), Expires: 05/20/2025 [facility] Comment on above: Expected: 05/20/2024 (Approximate), Expires: 05/20/2025 Start: 05-20-2024 End: 05-20-2025 Blood type and Indirect antibody screen panel - Blood Type and screen Lab Routine Missed menses , unspecified gestational age Expected: 05/20/2024 (Approximate), Expires: 05/20/2025 [facility] Work Phone: Comment on above: Expected: 05/20/2024 (Approximate), Expires: 05/20/2025 Start: 05-20-2024 End: 05-20-2025 Drugs of abuse panel - Urine by Screen method Rapid drug screen, urine Lab Routine , unspecified gestational age Encounter for supervision of normal first in first trimester Expected: 05/20/2024 (Approximate), Expires: 05/20/2025 [facility] Comment on above: Expected: 05/20/2024 (Approximate), Expires: 05/20/2025 Start: 04-15-2024 End: 04-15-2024 Patient encounter procedure 04/15/2024 10:20 AM EST Office Visit [facility] [address] [place] [id number] Benji Leung DO [address] [place] [address] [facility] Start: 02-11-2024 End: 02-11-2024 Patient encounter procedure 02/11/2024 10:00 AM EDT Office Visit [facility] [address] [place] [address] Sampson Ayala PA [address] [place] [address] Arrived [facility] Comment on above: Arrived Start: 06-09-2022 [facility] Start: 06-06-2022 Referral to infectio us diseases physician [facility] Start: 06-05-2022 Borrelia burgdorferi DNA assay [facility] Start: 06-05-2022 End: 06-05-2022 [facility] Start: 06-05-2022 [facility] Start: 06-04-2022 Referral to senior technical architect [facility] Start: 06-04-2022 Referral to urologist Zehra [facility] Start: 06-02-2022 Hospital admission [facility] Start: 06-02-2022 Referral to neurologist [facility] Bacteria identified in Urine by Culture Urine culture Microbiology Routine Missed menses Ordered: 05/20/2024 [facility] Comment on above: Ordered: 05/20/2024 CBC W Auto Different ial panel - Blood CBC and differential Lab Routine Missed menses , unspecified gestational age Ordered: 05/20/2024 [facility] Comment on above: Ordered: 05/20/2024 Hemoglobin A1c/Hemoglobin.total in Blood Hemoglobin A1c Lab Routine Missed menses , unspecified gestational age Ordered: 05/20/2024 [facility] Comment on above: Ordered: 05/20/2024 Hepatitis B virus surface Ag [Presence] in Serum or Plasma by Immunoassay Hepatitis B surface antigen Lab Routine Missed menses , unspecified gestational age Ordered: 05/20/2024 [facility] Comment on above: Ordered: 05/20/2024 Hepatitis C virus Ab [Presence] in Serum or Plasma by Immunoassay Hepatitis C antibody Lab Routine Missed menses , unspecified gestational age Ordered: 05/20/2024 [facility] Comment on above: Ordered: 05/20/2024 HIV-1/HIV-2 antigen/antibody combination immunoassay HIV-1 and HIV-2 antibodies Lab Routine Missed menses , unspecified gestational age Ordered: 05/20/2024 [facility] Comment on above: Ordered: 05/20/2024 IgG [Mass/volume] in Serum or Plasma [facility] Patient Education [facility] Work Phone: Patient referral [facility] Work Phone: Protein fractions.oligoclonal bands.intrathecal [Presence] in Serum and CSF [facility] Reagin Ab [Presence] in Serum by RPR RPR Lab Routine Missed menses , unspecified gestational age Ordered: 05/20/2024 [facility] Comment on above: Ordered: 05/20/2024 Rubella antibody, IgG Rubella an tibody, IgG Lab Routine Missed menses , unspecified gestational age Ordered: 05/20/2024 [facility] Comment on above: Ordered: 05/20/2024 URINARY TRACT INFECT ION (HTRX) URINARY TRACT INFECTION (HTRX) Lab Routine Dysuria Ordered: 04/08/2024 [facility] Work Phone: Comment on above: Ordered: 04/08/2024 Payers Date Payer Category Payer Self-pay [id number] 2023 Medicaid [id number] 2022 Medicaid [id number] 2003 Unknown [id number] 2.16.84 [id number] 2003 Unknown [id number] 2.16.8 [id number] 2003 Unknown [id number] 2.16.84 [id number] 2003 Unknown [id number] 2.16.84 [id number] 2003 Unknown [id number] 2.16.84 [id number] 2003 Unknown [id number] 2.16.84 [id number] 2003 Unknown [id number] 2.16.84 [id number] 2003 Unknown [id number] 2.16.84 [id number] 2003 Unknown [id number] 2.16.84 [id number] Unknown [id number] 2.1 [id number] Unknown [id number] 2.16.8 [id number] Social History Date Type Detail Facility Start: 02-11-2024 End: 04-08-2024 Sex Assigned At [employer] Other Start: 07-01-2020 End: 12-22-2022 Tobacco smoking status Never smoked tobacco (finding) [facility] Tobacco smoking status Never [facility] Start: 2003 Sex Assigned At Female [facility] Start: 12-22-2022 Tobacco use and exposure Smokeless tobacco non-user [facility] Start: 04-08-2024 End: 05-20-2024 Alcoholic beverage intake Lifetime non-drinker (finding) [facility] Start: 02-11-2024 End: 04-08-2024 History of Social function [facility] Start: 12-22-2022 Alcohol Comment Caffeine: 1-2 cups/day tea, chocolate [facility] Start: 12-24-2022 Gender identity Identifies as female gender (finding) [facility] Start: 12-24-2022 Sexual orientation Heterosexual (finding) [facility] Start: 03-18-2024 [facility] Functional Status Date Assessment Result Facility 10-28-2023 Functional Status N/A [facility] 06-15-2022 Functional Status N/A [facility] 06-09-2022 Functional status Patient at [facility] Work Phone: 05-24-2022 Functional Status N/A [facility] Mental Status Date Assessment Result Facility 06-09-2022 Cognitive function Cognitive Sta tus Patient at Baseline [facility] Work Phone: Clinical Notes 09-13-2021 to 05-20-2024 Georgie Rios MA - 05/20/2024 10:00 AM Gary Emery LPN - 04/15/2024 10:20 AM Asif Irvin DO - 04/08/2024 6:25 PM DANNI Osborn - 02/11/2024 10:00 AM EDTPatient Instructions Note Date & Type Note Facility 05-20-2024 History of Presen t illness Narrative Reason for Appointment: Patient ID: Heena Wang is a 19 y.o. female who presents for Amenorrhea Patient presents today for a Nurse OB Intake appointment. Patient is 11w0d with a Estimated Date of Delivery: 12/09/24 OB History Para Term AB Living 1 SAB IAB Ectopic Multiple Live Births # Outcome Date GA Lbr Amor/2nd Weight Sex Type Anes PTL Lv 1 Current Current Medications: has a current medication list which includes the following prescription(s): azathioprine, escitalopram, metoclopramide, ondansetron odt, promethazine, promethazine, and valacyclovir. Medical History: Active Ambulatory Problems Diagnosis Date Noted HSV (herpes simplex virus) infection 12/22/2022 Resolved Ambulatory Problems Diagnosis Date Noted No Resolved Ambulatory Problems Past Medical History: Diagnosis Date Trigger finger Family History Problem Relation Name Age of Onset Arthritis Mother Keely Wang Dislocations Mother Keely Wang Rheumatologic disease Mother Keely Wang Hypertension Father Diabetes Brother Hypertension Maternal Grandmother Aure Starr Cancer Maternal Grandmother Aure Starr Cancer Maternal Grandfather Stepan Wang Cancer Paternal Grandmother Izzy Gutiérrez Social History Tobacco Use Smoking status: Never Smokeless tobacco: Never Vaping Use Vaping status: Never Used Substance Use Topics Alcohol use: Never Comment: Caffeine: 1-2 cups/day tea, chocolate Drug use: Never Past Surgical History: Procedure Laterality Date INNER EAR SURGERY 2005 tubes in ears KNEE CARTILAGE SURGERY Right 02/01/2024 Arthroscopy w/ MTP @ [facility] OTHER SURGICAL HISTORY 2004 adnoidectomy No Known Allergies Vitals: Estimated body mass index is 26.54 kg/m as calculated from the following: Height as of 02/11/24: 5' 10 . Weight as of 04/08/24: 185 lb. BP: No LMP recorded. Patient is . Assessment/Plan Diagnoses and all orders for this visit: Missed menses - Type and screen; Future - ABO/Rh; Future - CBC and differential - Hemoglobin A1c - RPR - Rubella antibody, IgG - Hepatitis B surface antigen - Hepatitis C antibody - HIV-1 and HIV-2 antibodies - Urine culture - POCT , urine manually resulted 11 weeks gestation of , unspecified gestational age - Type and screen; Future - ABO/Rh; Future - CBC and differential - Hemoglobin A1c - RPR - Rubella antibody, IgG - Hepatitis B surface antigen - Hepatitis C antibody - HIV-1 and HIV-2 antibodies - Rapid drug screen, urine; Future Encounter for supervision of normal first in first trimester - Rapid drug screen, urine; Future Nurse Note: OB Intake: Patient presents today for first OB visit. Patients history has been reviewed in great detail including any potential risks. Patient signed consent forms and patient desires testing in both trimesters. Patient currently has no complaints and has been advised to drink 6-8 glasses of water a day, eat no raw or undercooked meat, and stay away from [facility]. Patient has also been advised to not change litter boxes and eat 6 small meals a day. Patient has been consulted regarding the do's and don'ts of . Patient was given labs and all questions and concerns were answered. Follow Up: Patient is to return in 4 weeks for routine OB appointment. Order was sent to [facility] for [facility]an pump. Pt aware of [facility] reaching out to set up an at home visit. Follow Up: Patient is to have labs drawn at directed and return to office for initial OB appointment with provider. Patient may call office as needed with any concerns or questions. Nurse Visit Completed by: Georgie Rios MA documented in this encounter [facility] 04-15-2024 History of Presen t illness Narrative [...] SURGERY Right 02/01/2024 Arthroscopy w/ MTP @ [facility] OTHER SURGICAL HISTORY 2004 adnoidectomy REVIEW OF SYSTEMS Review of Systems: [...] nursing note reviewed. Exam conducted with a animation producer present. Vitals: Estimated body mass index is [...] Benji Leung DO documented in this encounter [facility] 04-08-2024 History of Presen t illness Narrative Images from the original note were not included. [address], [address] [facility], [address] P: [phone] F: [phone] HPI Historian of HPI: patient Heena Wang is a 18 y.o. [...] capsule; Refill: [address] encounter [facility] 02-11-2024 History of Presen t illness Narrative [...] use for discomfort. documented in this encounter [facility] 02-11-2024 Instructions DANNI Judd - 02/11/2024 10:00 [...] use for discomfort. documented in this encounter [facility] 10-28-2023 Hospital Discharg e instructions Patient Education [...] sitting or lying down. General instructions Take oyqy-wvj-gnovvct and prescription medicines only as told by [...] provider. Document Revised: 08/14/2022 Document Reviewed: 03/26/2020 [employer] Patient Education 2022 [employer]. 10/28/2023 12:35:22 How to Use a Knee [...] provider. Document Revised: 02/10/2022 Document Reviewed: 02/10/2022 [employer] Patient Education 2022 [employer] 10/28/2023 12:35:22 Radial Nerve Palsy Radial [...] over the back of a chair (Sunday palsy). Performing repetitive activities that involve rotation [...] provider. Document Revised: 06/29/2021 Document Reviewed: 06/29/2021 [employer] Patient Education 2022 [employer]. 10/28/2023 12:35:22 Crutch Use, Adult, Negz-vt-Path Crutch Use, Adult Crutches are used to [...] you. Keep your weight over the hand trial examiner. 3.Bring the good leg forward to meet the crutches or to land a little bit ahead of them. 4.Repeat. Going up steps If there is no handrail: 1.Walk up to steps and put weight on hand trial examiner to step up. 2.Step up with your [...] provider. Document Revised: 11/26/2019 Document Reviewed: 11/26/2019 [employer] Patient Education 2022 [employer]. Follow Up Care 10/28/2023 11:08:54 With:Rayne Rivera Address: [address] [place] [address]- Business (1) When:10/31/2023 12:11:58 With:MORRO HAUSER Address: [address] [place] [address] [place] [address]- [phone] Business (1) When:Within 3 Day(s) [facility] 03-02-2023 Evaluation note Encounter Date Diagnosis Assessment [...] 3 days. May return to work tomorrow [employer] Other 01-26-2023 Hospital Discharge instructions Patient Education 06/15/2022 09:22:12 Acute Urinary Retention, Female, Eyry-jt-Xmfo Acute Urinary Retention, Female Acute urinary retention means that you cannot pee (urinate) at all, or that you pee too little and your bladder is not emptied completely. If it is not treated, it can lead to kidney damage or other serious problems. Follow these instructions at home: Take ydai-hbk-luypvgy and prescription medicines only as told by [...] 10/23/2008 Document Revised: 04/19/2018 Document Reviewed: 06/08/2017 [employer] Patient Education 2020 [employer]. Follow Up Care 06/07/2022 11:50:23 With:Jason COELHO, VALDEMAR Xavier, URO Address: When: Unknown [facility] 01-25-2023 Evaluation note* Encounter Date Diagnosis Assessment [...] of care between Inpatient setting and outpatient RESEARCH ASSOCIATE QUALITY CONTROL QC office. Mother confirms that she did schedule [...] that were not corrected during review process. [employer] Other 01-20-2023 Progress note Author Kt Pearson [facility] June 09, 2022 3:41pm Note Date/Time June 09, 2022 3 :42pm [facility] [address] [place] [address] Neurology Progress Note Signed Patient: Heena Wang MR#: [id number] : 2005 Acct:[id number] Age/Sex: 17 / F Adm Date: 3 Loc: 3T Room: [address] [place] [address] Type: ADM IN Attending Dr: Melo Diana [...] she went to get checked out at [facility].? She was also experiencing tingling paresthesias that [...] signed by Kt Pearson DO> 06/09/22 1541 [facility] Work Phone: 1(645) 552-303201-19-2023 Progress note Author Kt Pearson [facility] June 08, 2022 3:35pm Note Date/Time June 08, 2022 7 :41am [facility] [address] [place] [address] Neurology Progress Note Signed Patient: Heena Wang MR#: [id number] : 2005 Acct:[id number] Age/Sex: 17 / F Adm Date: 3 Loc: 3T Room: [address] [place] [address] Type: ADM IN Attending Dr: Melo Diana [...] level noted with pinprick CEREBELLAR EXAM: * Nupomj-qo-vuig and alternating movements are intact and normal in bilateral upper extremities * Nuxu-hw-cgjp and alternating movements are intact and normal [...] she went to get checked out at [facility].? She was also experiencing tingling paresthesias that [...] 1535 <Electronically signed by RHIANNON Avery> 06/08/22 1115 [facility] Work Phone: 1(763) 775-256601-19-2023 Progress note Author Melo Diana [facility] June 08, 2022 10:23am Note Date/Time June 08, 2022 1 0:11am [facility] [address] [place] [address] Hospitalist Progress Note Signed Patient: Heena Wang MR#: [id number] : 2005 Acct:[id number] Age/Sex: 17 / F Adm Date: 3 Loc: Room: [address] [place] [address] Type: ADM IN Attending Dr: Melo Diana [...] 18:05 06/06/22 18:10 Bisacodyl 10 Mg Supp.Rect [place] 06/06/23 18:04 10 mg DAILY PRN Administration [...] Rodas catheter placement, and HSV genital and EMBEDDED SOFTWARE MANAGER infection. Bilateral Paresthesia of the Lower Extremities HSV EMBEDDED SOFTWARE MANAGER Infection White matter lesions in Brain and Thoracic Spine Continue IVIG therapy. Paresthesias have improved more significantly today. Suspect an autoimmune or demyelinating process given findings on MRI brain in cervical and thoracic spine. Unclear how much patient's neurologic complaints are related to this Herpes EMBEDDED SOFTWARE MANAGER infection. Lumbar puncture results: Lymphocytic pleocytosis, +HSV2 [...] than 0.2, Zamora IgG less than 0.2, SERVICE DEVELOPER 0.2, scleroderma 0.2, Anti-MOG pending. -CSF albumin, [...] <Electronically signed by Melo Diana MD> 06/08/22 1028 [facility] Work Phone: 1(735) 441-319101-19-2023 Progress note Author Melo Diana [facility] June 07, 2022 10:30pm Note Date/Time June 07, 2022 9 :03am [facility] [address] [place] [address] Hospitalist Progress Note Signed Patient: Heena Wang MR#: [id number] : 2005 Acct:[id number] Age/Sex: 17 / F Adm Date: 3 Loc: 3T Room: [address] [place] [address] Type: ADM IN Attending Dr: Melo Diana [...] Dose Route Start Last Admin Trade Name Ellen PRN Reason Stop Dose Admin Acetaminophen 650 mg 06/02/22 21:44 06/06/22 11:30 Acetaminophen 325 Mg Tablet PO 06/02/23 21:43 650 mg Q6HR PRN Administration Pain Scale 1 - 3 or fever Bisacodyl 10 mg 06/06/22 18:05 06/06/22 18:10 Bisacodyl 10 Mg Supp.Rect [place] 06/06/23 18:04 10 mg DAILY PRN Administration [...] Rodas catheter placement, and HSV genital and EMBEDDED SOFTWARE MANAGER infection. Bilateral Paresthesia of the Lower Extremities HSV EMBEDDED SOFTWARE MANAGER Infection White matter lesions in Brain and Thoracic Spine After discussion with neurology today, will start patient on IVIG therapy. Paresthesias have mildly improved, have moved down from the region of her umbilicus down to her ankle and foot region. Unclear how much patient's neurologic complaints are related to this Herpes EMBEDDED SOFTWARE MANAGER infection. Lumbar puncture results: Clear, colorless fluid [...] than 0.2, Zamora IgG less than 0.2, SERVICE DEVELOPER 0.2, scleroderma 0.2, Anti-MOG pending. -CSF albumin, [...] above. Documented By: Melo Diana MD 3 [id number] Signed By: <Electronically signed by Melo Diana MD> 06/07/22 8319 [facility] Work Phone: 1(843) 255-381501-18-2023 Progress note Author Kt Pearson [facility] June 07, 2022 3:13pm Note Date/Time June 07, 2022 7 :38am [facility] [address] [place] [address] Neurology Progress Note Signed Patient: Heena Wang MR#: [id number] : 2005 Acct:[id number] Age/Sex: 17 / F Adm Date: 3 Loc: 3T Room: [address] [place] [address] Type: ADM IN Attending Dr: Melo Diana [...] level noted with pinprick CEREBELLAR EXAM: * Qedzfv-ps-gqdq and alternating movements are intact and normal in bilateral upper extremities * Faay-qo-gczi and alternating movements are intact and normal [...] she went to get checked out at [facility].? She was also experiencing tingling paresthesias that [...] 1513 <Electronically signed by RHIANNON Avery> 06/07/22 2117 [facility] Work Phone: [phone] 745-706901-17-2023 Progress note Author Melo Diana [facility] June 06, 2022 4:37pm Note Date/Time June 06, 2022 8 :26am [facility] [address] [place] [address] Hospitalist Progress Note Signed Patient: Heena Wang MR#: [id number] : 2005 Acct:[id number] Age/Sex: 17 / F Adm Date: 3 Loc: Room: [address] [place] [address] Type: ADM IN Attending Dr: Melo Diana [...] 500 Mg Tablet PO TID [facility] A&P - Hospitalist Assessment/Plan (1) Herpes simplex [...] Bilateral Paresthesia of the Lower Extremities HSV EMBEDDED SOFTWARE MANAGER 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 Unclear how much patient's neurologic complaints are related to this Herpes EMBEDDED SOFTWARE MANAGER infection. Lumbar puncture results: Clear, colorless fluid [...] -Immunology for: LIZZY, SS?A/Ro, SS-B/La, Zamora IgG, SERVICE DEVELOPER, scleroderma pending -CSF albumin, oligoclonal IgG bands, [...] <Electronically signed by Melo Diana MD> 06/06/22 1638 [facility] Work Phone: 1(387) 692-819501-17-2023 Progress note Author Kt Pearson [facility] June 06, 2022 3:31pm Note Date/Time June 06, 2022 7 :55am [facility] [address] [place] [address] Neurology Progress Note Signed Patient: Heena Wang MR#: [id number] : 2005 Acct:[id number] Age/Sex: 17 / F Adm Date: 3 Loc: Room: [address] [place] [address] Type: ADM IN Attending Dr: Melo Diana [...] level noted with pinprick CEREBELLAR EXAM: * Lbgupe-xg-pnxv and alternating movements are intact and normal in bilateral upper extremities * Hvkg-nh-aktb and alternating movements are intact and normal [...] she went to get checked out at [facility].? She was also experiencing tingling paresthesias that [...] discharge. Documented By: Kt Pearson DO 06/06/22 0745 Signed By: <Electronically signed by Kt Pearson DO> 06/06/22 1531 <Electronically signed by RHIANNON Avery> 06/06/22 0943 [facility] Work Phone: [phone] 732-223501-17-2023 Consult note Author Rayne Vitale [facility] June 06, 2022 10:21am Note Date/Time June 06, 2022 1 0:09am [facility] [address] [place] [address] Infect. Disease Consult Note Signed Patient: Heena Wang MR#: [id number] : 2005 Acct:[id number] Age/Sex: 17 / F Adm Date: 3 Loc: Room: [address] [place] [address] Type: ADM IN Attending Dr: Melo Diana [...] period of time. She had seen at [facility] and was given oral Flagyl and [...] negative unless noted below or in HPI [facility] Attestation Statement: The following information was validated [...] Capsule) 100 mg PO BID [facility] Stop: 06/04/23 20:59 Last Admin: 06/06/22 08:46 Dose: 100 mg Methylprednisolone Sodium Succinate 1,000 mg/ Sodium Chloride 116 mls @ 116 mls/hr IV DAILY WILLIAM Stop: 06/08/22 17:59 Last Admin: 06/06/22 09:47 Dose: 116 mls/hr Morphine Sulfate (Morphine Sulfate 2 Mg/Ml Vial) 2 mg IV-PUSH Q4H PRN PRN Reason: Pain Last Admin: 06/04/22 02:57 Dose: 2 mg Polyethylene Glycol (Polyethylene Glycol 3350 17 Gm Powd.Pack) 17 gm PO DAILY [facility] Stop: 06/04/23 19:44 Last Admin: 06/06/22 08:46 Dose: 17 gm Valacyclovir HCl (Valacyclovir 500 Mg Tablet) 1,000 mg PO TID [facility] Last Admin: 06/06/22 08:46 Dose: 1,000 mg [...] <Electronically signed by MD Rayne Vitale> 06/06/22 1021 [facility] Work Phone: [phone] 656-972301-16-2023 Progress note Author Melo Diana [facility] June 05, 2022 5:58pm Note Date/Time June 05, 2022 9 :00am [facility] [address] [place] [address] Hospitalist Progress Note Signed Patient: Heena Wang MR#: [id number] : 2005 Acct:[id number] Age/Sex: 17 / F Adm Date: 3 Loc: 3T Room: [address] [place] [address] Type: ADM IN Attending Dr: Melo Diana [...] -Immunology for: LIZZY, SS?A/Ro, SS-B/La, Zamora IgG, SERVICE DEVELOPER, scleroderma pending -Lumbar puncture results pending. Discussed [...] above. Documented By: Melo Diana MD 3 [id number] Signed By: <Electronically signed by Melo Diana MD> 06/05/22 2865 [facility] Work Phone: 1(915) 722-876101-16-2023 Progress note Author Kt Pearson [facility] June 05, 2022 5:19pm Note Date/Time June 05, 2022 9 :08am [facility] [address] [place] [address] Neurology Progress Note Signed Patient: Heena Wang MR#: [id number] : 2005 Acct:[id number] Age/Sex: 17 / F Adm Date: 3 Loc: 3T Room: [address] [place] [address] Type: ADM IN Attending Dr: Melo Diana [...] level noted with pinprick CEREBELLAR EXAM: * Ipdeah-nj-pcoo and alternating movements are intact and normal in bilateral upper extremities * Qwbe-ly-xvlj and alternating movements are intact and normal [...] she went to get checked out at [facility].? She was also experiencing tingling paresthesias that [...] 1719 <Electronically signed by RHIANNON Avery> 06/05/22 1042 [facility] Work Phone: 1([phone] 430-929901-16-2023 Procedure [facility]01-15-2023 Progress note Author Ravi Zhang [facility] June 04, 2022 6:44pm Note Date/Time June 04, 2022 1 0:01am [facility] ENTER [address] [place] [address] Hospitalist Progress Note Signed Patient: Heena Wang MR#: [id number] : 2005 Acct:[id number] Age/Sex: 17 / F Adm Date: 3 Loc: Room: 8S9566-7 Type: ADM IN Attending Dr: Ravi Zhang [...] by neurology. Documented By: Ravi Zhang DO 0657 Signed By: <Electronically signed by Ravi Zhang, DO> 06/04/22 7867 [facility] Work Phone: 1(132) 561-520901-15-2023 Consult note Author Isaías Pan [facility] June 04, 2022 2:39pm Note Date/Time June 04, 2022 2 :19pm [facility] [address] [place], [place] [id number] [employer] QUAL[employer] QC Consult Note Signed Patient: Heena Wang MR#: [id number] : 2005 Acct:[id number] Age/Sex: 17 / F Adm Date: 3 Loc: Room: [address] [place] [address] Type: ADM IN Attending Dr: Ravi Zhang [...] symptoms in the past that resemble this. PMFSH Vaccinated for COVID-19?: Yes Medical History (Updated [...] 500 Mg Tablet) 1,000 mg PO BID WILLIAM CHIEF ADMINISTRATIVE OFFICER - Exam Physical Exam Vital signs: Temp [...] lymph nodes. Lower extremities showed no edema. CHIEF ADMINISTRATIVE OFFICER - Results Laboratory Results - Last 48 [...] % (Auto) 45.7, Lymph % (Auto) 42.0, Wharton % (Auto) 9.4, Eos % (Auto) 0.9, Baso % (Auto) 2.0, Nucleat RBC Rel Count 0.3, Neut # (Auto) 3.1, Lymph # (Auto) 2.9, Wharton # (Auto) 0.6, Eos # (Auto) 0.1, Baso # (Auto) 0.1, ESR 26 H Microbiology - Results from entire visit 06/04/22 12:05 Vaginal Fungal Smear - Final 06/04/22 12:05 Vaginal Trichomonas Wet Mount - Final CHIEF ADMINISTRATIVE OFFICER - A/P (1) Acute urinary retention: Code(s): [...] <Electronically signed by Isaías Pan DO> 06/04/22 1438 [facility] Work Phone: 1(280) 653-890501-15-2023 Consult note Author Iman Gomez [facility] June 04, 2022 1:38pm Note Date/Time June 04, 2022 1 1:04am [facility] [address] [place] [address] Urology Consult Note Signed Patient: Heena Wang MR#: [id number] : 2005 Acct:[id number] Age/Sex: 17 / F Adm Date: 3 Loc: Room: [address] [place] [address] Type: ADM IN Attending Dr: Ravi Zhang DO Copies to: WINNIE Thomas MD Kristopher L Lindbloom, DO~ History of Present Illness Consult Details Consult Date: 06/04/2022 Reason for Urology Consult: Urinary retention Requesting Provider: Ravi Zhang DO HPI: 17 year old healthy female transferred from outside hospital to [facility] on 06/02/2022 with acute urinary retention and [...] has not beendiagnosed with PCOS, no prior CHIEF ADMINISTRATIVE OFFICER evaluation. Has appointment this week. Her paresthesias [...] % (Auto) 45.7, Lymph % (Auto) 42.0, Wharton % (Auto) 9.4, Eos % (Auto) 0.9, Baso % (Auto) 2.0, Nucleat RBC Rel Count 0.3, Neut # (Auto) 3.1, Lymph # (Auto) 2.9, Wharton # (Auto) 0.6, Eos # (Auto) 0.1, [...] Neurologic evaluation negative. Patient was down with [employer]EARCH ASSOC[employer]ATE QUALITY CONTROL QC getting examined due to swollen and painful [...] <Electronically signed by Iman Gomez MD> 06/04/22 1337 [facility] Work Phone: 1(216) 524-237301-15-2023 Progress note Author Kt Pearson [facility] June 04, 2022 11:43am Note Date/Time June 04, 2022 1 1:43am [facility] [address] [place] [address] Neurology Progress Note Signed Patient: Heena Wang MR#: [id number] : 2005 Acct:[id number] Age/Sex: 17 / F Adm Date: 3 Loc: 3T Room: [address] [place] [address] Type: ADM IN Attending Dr: Ravi Zhang [...] Acute Documented By: Kt Pearson DO 06/04/22 1132 Signed By: <Electronically signed by Kt Pearson DO> 06/04/22 1143 [facility] Work Phone: 1(908) 700-564701-14-2023 Progress note Author Ravi Zhang [facility] June 03, 2022 6:07pm Note Date/Time June 03, 2022 6 :07pm [facility] [address] [place] [address] Hospitalist Progress Note Signed Patient: Heena Wang MR#: [id number] : 2005 Acct:[id number] Age/Sex: 17 / F Adm Date: 3 Loc: Room: [address] [place] [address] Type: ADM IN Attending Dr: Ravi Zhang [...] By: <Electronically signed by Ravi Zhang DO> 06/03/221806 [facility] Work Phone: 1(120) 812-244301-14-2023 Consult note Author Kt Pearson [facility] June 03, 2022 12:02pm Note Date/Time June 03, 2022 1 0:02am [facility] [address] [place] [address] Neurology Consult Note Signed Patient: Heena Wang MR#: [id number] : 2005 Acct:[id number] Age/Sex: 17 / F Adm Date: 3 Loc: Room: [address] [place] [address] Type: ADM IN Attending Dr: Ravi Zhang DO Copies to: DO Morro Lopez APRN Kristopher L Lindbloom, DO~ HPI Consult Date: 06/03/22 Gas Station Supervisor: Kt Pearson [facility] Vacc[facility] for [facility]-19?: Yes Social History Smoking [...] woman with history of scoliosis. Works at [employer]. After not being able to urinate for 8+ hours she went to get checked out at [facility]. She was also experiencing tingling paresthesias that [...] <Electronically signed by Kt Pearson DO> 06/03/22 4939 [facility] Work Phone: 1(511) 964-877101-13-2023 History and physical note Author Ravi Zhang [facility] June 02, 2022 9:44pm Note Date/Time June 02, 2022 9 :44pm [facility] [address] [place] [address] Hospitalist H&P Signed Patient: Heena Wang MR#: [id number] : 2005 Acct:[id number] Age/Sex: 17 / F Adm Date: 3 Loc: Room: [address] [place] [address] Type: ADM IN Attending Dr: Ravi Zhang DO Copies to: WINNIE Thomasadam Rodriguez [employer], ~ HPI DATE OF EXAMINATION: 06/02/22 CHIEF COMPLAINT: [...] except as mentioned elsewhere in the documentation. [facility] Attestation Statement: The following information was validated [...] and equal bilaterally. Lower extremities: She describes ymdm-uka-emrhege type paresthesias all the way from the [...] 2132 Signed By: <Electronically signed by Ravi Zhang DO> 06/02/222143 [facility] Work Phone: 1(717) 462-215501-04-2023 Hospital Discharge instructions Follow Up Care 05/24/2022 14:39:56 With:MORRO HAUSER CNP Address: [address] [place] [address]- When: Unknown [facility] 01-01-2023 History general [...] History Rodas catheter placement 023 Hospitalization History [facility] - Viral men ingitis, urinary retention 06/02 - 06/09 2022 [facility] Other 01-01-2023 History general Narrative - Reported* [...] History Rodas catheter placement 023 Hospitalization History [facility] - Viral men ingitis, urinary retention 06/02 - 06/09 2022 [facility] Other 08-18-2022 Evaluation note* Encounter Date Diagnosis [...] that were not corrected during review process. [facility] Other 07-07-2022 Evaluation note* Encounter Date Diagnosis Assessment Notes Treatment Notes Treatment Clinical Notes Nov, Exposure to COVID-19 virus (ICD-10 - Z20.822) [facility] Other 07-05-2022 Evaluation note* Encounter Date Diagnosis [...] continue medication, discontinuing medication or follow-up with [employer]ATE QUALITY CONTROL QC.I did explain that there are other underlying pathologies that can cause painful cramping. This work-up and diagnosis would need to be done by [employer]EARCH ASSOCIATE QUALITY CONTROL QC especially due to her age.Patient verbalizes understanding and will let me know if she would like to continue the control or not. Nov, Other *Progress note was completed with the assistance of voice recognition software for dictation purposes. Please excuse any grammatical errors that were not corrected during review process. [facility] Other 04-26-2022 Evaluation note* Encounter Date Diagnosis [...] cancer, but decreased risk for ovarian/uterine cancers, mcfp. Can call in 3 months for refills if desired. 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 Metronidazole adverse reaction acute Paresthesia of both lower extremities acute Primary vulvovaginal herpes simplex infection acute Vaginal discharge acute Vulvar ulceration acute [facility] Work Phone: Evaluation noteNo InformationNort [employer] Other Evaluation noteNo assessment information available [facility] Work Phone: Evaluation note* Diagnosis Dysuria- Primary Acute cystitis without hematuria documented in this encounter [facility] HealthcareEvaluation note* Diagnosis Encounter for surveillance of other contraceptive documented in this encounter [facility] HealthcareEvaluation note* Diagnosis Status post arthroscopy of right knee- Primary Other postprocedural status documented in this encounter [facility] HealthcareEvaluation note* Diagnosis Missed menses 11 weeks gestation of , unspecified gestational age Encounter for supervision of normal first in first trimester documented in this encounter [facility] HealthcareHistory general Narrative - Reported* Type Description Date Medical History scoliosis Surgical History tubes in ears twice 2004 Surgical History adenoidectomy 2004 [facility] Other History general Narrative - Reported* Type Description Date Medical History scoliosis Medical History seasonal allergies Surgical History tubes in ears twice 2004 Surgical History adenoidectomy 2004 [facility] Other Hospital Discharge instructions No data available for this section [facility] Additional Instructions Maintain and routine care to rodas. Maintain rodas until you see Dr. 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 Metronidazole adverse reaction Paresthesia of both lower extremities Primary vulvovaginal herpes simplex infection Vaginal discharge Vulvar ulceration Chief Complaint L ankle injury Advance Directives No Advanced Directives Records Found Advance Directive Response Recorded Date/ Time Advance Directives No March 01, 2021 12:26pm Advance Directive Response Recorded Date/ Time Advance Directives No March 01, 2021 1:26pm Summary Purpose Family History No Family History Records Found No data available for this section No Family History Records Found No data available for this section No Family History Records FoundNo Family History Records Found Reason for Referral Reason 07/26/22 @ 1:30pm NICOLE TRUJILLO [facility] SPECIFICALLY ; PATIENT'S MOTHER CLEARED WITH PROVIDER HERSELF PLEASE CONTACT MOTHER KEELY AT [phone] TO SCHEDULE Diagnosis 1 Anxiety (F41.9) Referral Organization [facility] Referring Provider First Name Morro Referring Provider Last Name Talon Referring Provider Specialty Nurse Sera barronionenilson Referred Organization [facility] [address] [place],[address] Referred Provider Specialty Psychiatry Referral Priority Routine Referral Appointment Date 2022-07-26 General Notes Tricia Borjas Jazzy 023 02:12:31 PM >Received today and fax referral. [facility] Referral Dept will call patient and schedule Anna Borjasjacquie Purcell 06/21/2022 09:26:23 AM >Fax letter for appt update Tricia Borjas 06/27/2022 08:10:07 AM >Received letter back with appt Additional Source Comments REASON FOR VISIT (unrecogniz ed section and content) Reason Comments Post-op Rt knee scope MTP TS [facility] 02/01/24 Reason Comments Amenorrhea Patient Care team informatio n (unrecognized section and content) Team Status: Inactive Member Role Status Dates Ravi Zhang , Admit Provider Active Morro Hauser APRN Primary Care Provider Active Kt Pearson , Other Provider Active Isaías Pan , Other Provider Active Iman Gomez MD Other Provider Active Melo Diana MD Attending Provider Active Rayne Vitale MD Other Provider Active Team Status: Active Member Role Status Dates Morro Hauser APRN Primary Care Provider Active Team Status: Inactive Member Role Status Dates Morro Hauser APRN Primary Care Provider Active Samra Greenberg APRN Emergency Provider Active Cms Expert Relationship Specialty Start Date End Date Morro Hauser MD [address] [place] [address] [place] [address] Primary Care Provider Family Medicine 01/11/23 Cms Expert Relationship Specialty Start Date End Date Morro Hauser MD [address] [place] [address] Primary Care Provider Family Medicine 01/11/23 Cms Expert Relationship Specialty Start Date End Date Morro Hauser MD [address] [place] [address] Primary Care Provider Family Medicine 01/11/23 Cms Expert Relationship Specialty Start Date End Date Morro Hauser MD [address] [place] [address] Primary Care Provider Family Medicine 01/11/23 Goals (unrecognized section and content) Goals may be documented in a n alternate section INFORMATION SOURCE (unrecogn ized section and content) DATE CREATED AUTHOR 07/08/[address] [facility] [place] [facility] DATE CREATED AUTHOR AUTHOR'S ORGANIZ ATION 11/22/2023 [facility] DATE CREATED AUTHOR AUTHOR'S ORGANIZ ATION 05/18/2024 [facility] DATE CREATED AUTHOR AUTHOR'S ORGANIZ ATION 05/21/2024 [facility] FOR RECORDS PERTAINING TO PATIENTS WHO ARE [...] PRIMARY CLINICAL RECORDS. [facility]. provides no warranty or guarantee of the accuracy or completeness of information in this document.
[2024-06-04 14:58] LABS: BOX Test Reference Lab UNITY; BOX Test Sent Out UNITY; Basophils Percent Auto 0.5 % (0.2-2.0); Eosinophils Percent Auto 0.4 % (0.9-7.0); Hematocrit 37.9 % (36.0-48.0); Hemoglobin 12.8 g/dL (12.0-16.0); Immature Granulocytes Abs Auto 0.05 10^3/uL (0.00-0.03); Immature Granulocytes Pct Auto 0.6 % (0.0-0.5); Lymphocytes Absolute Auto 1.6 10^3/uL (1.2-3.8); Lymphocytes Percent Auto 19.2 % (20.5-60.0); Mean Corpuscular HGB Conc 33.8 g/dL (29.9-35.2); Mean Corpuscular Hemoglobin 29.3 pg (26.7-34.0); Mean Corpuscular Volume 86.7 fL (81.0-99.0); Mean Platelet Volume 12.1 fL (9.5-13.5); Monocytes Absolute Auto 0.7 10^3/uL (0.3-0.8); Monocytes Percent Auto 8.2 % (1.7-12.0); Neutrophils Absolute Auto 5.9 10^3/uL (1.4-6.5); Neutrophils Percent Auto 71.1 % (43.0-75.0); Platelet Count 209 10^3/uL (150-450); Red Blood Count 4.37 10^6/uL (4.20-5.40); Red Cell Distribution Width 12.7 % (11.0-15.0); White Blood Count 8.3 10^3/uL (4.0-11.0)
[2024-06-04 15:05] LABS: Cannabinoid Screen Urine NEGATIVE (NEGATIVE); Cocaine Screen Urine NEGATIVE (NEGATIVE); Methamphetamines Screen Urine NEGATIVE (NEGATIVE); Phencyclidine Screen Urine NEGATIVE (NEGATIVE)
[2024-06-04 15:06] LABS: Amphetamine Screen Urine NEGATIVE (NEGATIVE); Barbiturates Screen Urine NEGATIVE (NEGATIVE); Benzodiazepines Screen Urine NEGATIVE (NEGATIVE); Buprenorphine Screen Urine NEGATIVE (NEGATIVE); Methadone Screen Urine NEGATIVE (NEGATIVE); Opiate Screen Urine NEGATIVE (NEGATIVE); Oxycodone Screen Urine NEGATIVE (NEGATIVE); Tricyclic Antidepressant Urine NEGATIVE (NEGATIVE)
[2024-06-04 15:15] LABS: Estimated Average Glucose 94 mg/dL; Glycohemoglobin A1C 4.9 % (4.5-6.2)
[2024-06-05 07:12] LABS: HBsAg Screen Negative (Negative); HCV Ab Non Reactive (Non Reactive); HIV Ab/p24 Ag Screen Non Reactive (Non Reactive)
[2024-06-05 08:12] LABS: Rubella Antibodies, IgG 5.13 index (Immune >0.99)
[2024-06-05 11:08] LABS: Rapid Plasma Reagin, Quant Non Reactive titer (NonRea<1:1)
== END 2024-06-04 14:21 | disposition home or self-care (01) ==
LOC: LAB 14:23
PROVIDERS: PCP Nurse Practitioner Family; Visit Provider Obstetrics & Gynecology
DX: Z34.01 Encounter for supervision of normal first pregnancy, first trimester (principal); Z36.0 Encounter for antenatal screening for chromosomal anomalies; N92.6 Irregular menstruation, unspecified
CPT/HCPCS: 36415; 80307; 83036; 85025; 86592; 86762; 86803; 86850; 86900; 86901; 87086; 87340; 87389

== ENCOUNTER 2024-07-16 14:32 | Outpatient (REF) | payer MEDICAID, SELFPAY ==
--- OUTSIDE RECORDS SUMMARY | 2024-07-16 14:47 | XMS_ITS | CCD ---
Author Organization [facility] Care Team Providers Care Habilitative Interventionist Name Role Phone Morro Hauser Unavailable MORRO HAUSER Primary Care Physician DO Ravi Zhang Admit Provider [phone] WINNIE Hauser Primary Care Provider [phone]( [phone] DO Kt Pearson Other Provider DO Isaías [...] Soriano Attending Unavailable Morro Hauser MD Unavailable Percy Mendoza Attending Unavailable Percy Mendoza Admitting Unavailable BENJI LEUNG Attending Unavailable SAMPSON AYALA Referring Unavailable SAMPSON AYALA [...] Twice a day as needed Active azaTHIOprine (15 sources) Purine Antimetabolite Start: 01-07-2023 Azathioprine Active MG TABLET January 07, 2023 12:00am take 0.5 tablet by m outh once daily in the morning, then take 1 tablet by mouth at bedtime azaTHIOprine (Imuran) 100 MG tablet TAKE 1/2 (ONE-HALF) OF A TABLET BY MOUTH EVERY MORNING, and ONE TABLET AT BEDTIME, titrate up DIRECTED Diagnosis Unavailable Active escitalopram 20 mg oral tablet (16 sources) Serotonin Reuptake Inhibitor Start: 01-07-2023 Escitalopram [...] Nov, Active metoclopramide 10 mg oral tablet (6 sources) Dopamine-2 Receptor Antagonist Start: 05-15-2024 End: 06-14-2024 [...] needed for nausea.. 90 tablet 3 05/15/2024 Active nitrofurantoin, macrocrystals 25 mg / nitrofurantoin, [...] Active ondansetron 4 mg disintegrating oral tablet (6 sources) Serotonin-3 Receptor Antagonist Start: 06-23-2024 take 1 tablet by mouth every eight hours as needed for nausea and vomiting and nausea and nausea ondansetron ODT (Zofran-ODT) 4 MG disintegrating tablet Indications: Nausea Take 1 tablet (4 mg) by mouth every 8 (eight) hours if needed for nausea or vomiting 20 tablet 3 06/23/2024 Active Start: 04-29-2024 take 1 tablet by arcelia th every eight hours as needed for nausea and vomiting and nausea and nausea ondansetron ODT (Zofran-ODT) 4 MG disintegrating tablet Indications: Nausea Take 1 tablet (4 mg) by mouth every 8 (eight) hours if needed for nausea or vomiting 20 tablet 3 04/29/2024 Active promethazine hydrochloride 12.5 mg oral tablet (12 sources) Phenothiazine Start: 04-23-2024 take 1 tablet [...] 05/15/2024 Active valACYclovir 500 mg oral tablet (20 sources) Herpesvirus Nucleoside Analog DNA Polymerase Inhibitor, [...] 07, 2023 11:16am take 2 tablets by [facility] every eight hours valACYclovir HCl 500 MG 2 tablets Orally three times a day Active Completed/Discontinued Medications Medication Drug Class(es) Dates Sig (Normalized) Sig (Original) acetaminophen 325 mg / HYDROcodone bitartrate 5 mg oral tablet (2 sources) Opioid Agonist Start: 01-28-2024 End: 02-11-2024 take 1-2 tablets by mouth every four hours for pain HYDROcodone-acetam inophen ([place]) 5-325 MG tablet Indications: Acute traumatic internal [...] 07, 2023 12:00am take 1 tablet by once daily Drospirenone-Ethinyl Estradiol 3-0.03 MG TAKE 1 TABLET BY MOUTH EVERY DAY Oral for 28 Days Active Ethinyl Estradiol / Ferrous fumarate / Norethindrone (3 sources) Estrogen Start: 04-16-2024 End: 05-19-2024 norethindrone-ethinyl estrad iol (06/09) 1-20 MG-MCG tablet Indications: Encounter for surveillance of other contraceptive Take 1 tablet by mouth Daily 28 tablet 04/16/2024 05/19/2024 Discontinued (Therapy completed) Start: 04-16-2024 [...] June 09, 2022 3:36pm polyethylene glycol 3350 15617 mg powder for oral solution (2 sources) [...] 06-09-2022 Episodic Other and delivery including normal (4 sources) ; Translations: [Encounter for supervision of [...] [11 weeks gestation of ] 05-20-2024 Episodic Residual codes; unclassified (2 sources) Gestation period, 15 weeks; Translations: [15 weeks gestation of ] 06-17-2024 Episodic Sprains and strains (2 sources) Sprain [...] Test Name Value Interpretation Reference Range Facility Urinalysis macro (dipstick) panel (U)on 06-17-2024 Bilirubin, UA Negative Negative - 4(70) +++ mg/dL [facility] Blood, UA Negative Negative - 50 Timmy/mcL [facility] Clarity, UA Clear [facility] Color, UA Yellow [facility] Glucose, UA Negative Negative - 2000(110) ++++ mg/dL [facility] Interpretation and review of laboratory results Abnormal [facility] Ketones, UA Positive Negative - 160(16) ++++ mg/dL [facility] Comment on above: 15 Leukocytes, UA Trace Negative - 500+++ Hilda/mcL [facility] Nitrite, UA Negative Negative - Positive [facility] pH, UA 8.5 5 - 9 [facility] Protein, UA Positive Negative - 1999(20) ++++ mg/dL [facility] Comment on above: 30 Spec Grav, UA 1.02 1 - 1.03 [facility] Urobilinogen, UA >=8.0 0.2 - 12 mg/dL [facility] BOX TESTon 06-04-2024 BOX TEST SENT OUT [facility] BOX1 [facility] BOX2 06/04/24 [facility] BOX [facility] HCG ( test) Ql (U)o n 05-20-2024 Interpretation and review of laboratory results Abnormal [facility] Preg Test, Ur Positive Negative [facility] Urine Cultureon 05-14-2024 Bacteria identified Cx Nom (U) 30,000 colonies/ml mixed bacterial skin contaminants 2 Days PERFORMED BY: [address] [place] [address] PATHOLOGIST LAND EXAMINER LIDIA ZHENG M.D. Normal [facility] Comment on above: Performed By: #### C UU #### [address] Laboratory - Chemistry and C hemistry - challengeon 04-08-2024 Bilirubin Ql (U) 1+ Negative [facility] Glucose [Mass/Vol] Negative Negative [facility] Ketones Ql (U) Negative Negative [facility] pH (U) 7 [pH] 5.0 - 6.0 [facility] Specific gravity (U) [Rel density] 1.015 1.001 - 1.035 [facility] Laboratory - Hematology and Cell countson 04-08-2024 Hemoglobin Ql (U) + Negative [facility] Laboratory - Urinalysison Nitrite Ql (U) Negative Negative [facility] Protein Ql (U) 1+ Negative [facility] No Panel Informationon 04-08 Interpretation and review of laboratory results Abnormal [facility] LEUKOCYTES 1+ Negative [facility] UROBILINOGEN 2+ 0.2 - 1.0 [facility] ED Note-Physicianon 10-29-19 ED Note-Physician Basic Information [...] Rivera In 3 days 10/31/2023 EDT [address] [place] [address]- Business (1) Additional Instructions: MORRO HAUSER In 3 days [address] [place] [address]- [phone] Business (1) Additional Instructions: Patient Education Knee Sprain, Adult How to Use a Knee Immobilizer Radial Nerve Palsy Crutch Use, Adult, Fuam-fi-Mzks Attestation I performed a subst (more content not included)... Normal [facility] Comment on above: Result Comment: Elec tronically Signed By: Alejandra Sun PA-C\.br\Date and Time Signed: 10/28/23 16:45 EDT\.br\Electronically Co-Signed By: Rupert Soriano DO\.ben\Date and Time Co-Signed: 10/29/23 08:08 EDT Consent for Treatmenton Consent for Treatment [id number] Normal [facility] Discharge Instructionson Discharge Instructions [id number] Normal [facility] ED Clinical Summaryon 2023 ED Clinical Summary (Inserted Image. Judith ble to display) [facility] [address], [place] [address] ED Clinical Summary Person Information Name: TON WANGELENA Liu [facility]ann[facility] Age: 18 Years : 2005 Sex: Female Language: Spanish PCP: MORRO HAUSER CNP Marital Status: Single [...] 10/28/2023 12:35:22 10/28/2023 12:35:22 10/28/2023 12:35:22 ADDRESS: [address] [place] [phone] PHYS DOC NOTES: MEDICAL INFORMATION: Prescriptions Given: PATIENT EDUCATION INFORMATION: Instructions: Knee Sprain, Adult; How to Use a Knee Immobilizer; Radial Nerve Palsy; Crutch Use, Adult, Fyhm-qx-Rdqg Follow up: With: Address: When: Rayne Rivera [address] [place] [address] [address] (1) In 3 days 10/31/2023 With: Address: When: [address] [phone] [address] (1) In 3 days DIAGNOSIS: 1:Strain of right knee Normal [facility] ED Patient Education Noteon 10-28-2023 ED [...] or lying down. General instructions ? Take qnhi-oll-bzxfkfy and prescription medicines only as told by [...] provider. Document Revised: 08/14/2022 Document Reviewed: 03/26/2020 [employer] Patient Education ? 2022 [employer] How to Use a Knee Immobilizer [...] your (more content not included)... Normal [facility] ED Patient Summaryon 024 ED Patient Summary (Inserted Image. Judith ble to display) [place] [id number] Patient Discharge Instructions Person Information Name: HEENA WANG Age: 18 Years Arrival Date: 10/28/2023 11:07:53 Discharge Diagnosis: 1:Strain of right knee Primary Care Physician: MORRO HAUSER CNP Provider Information Primary Provider: Rupert Soriano DO Advanced Assistant Operations Manager:None The exam and treatment you received in the Emergency Department were for an urgent problem and are not intended as complete care. It is important that you follow up with a doctor, nurse practitioner, or physician?s assistant corporation counsel for ongoing care. If your symptoms become worse or you do not improve as expected and you are unable to reach your usual health care provider, you should return to the Emergency Department. We are available 24 hours a day. HEENA WANG has been given the following list of patient education materials, prescriptions and follow-up instructions: Follow-up Instructions: With: Address: When: Rayne Rivera [address] [place], [place] [phone] [address] (1) In 3 days 10/31/2023 With: Address: When: MORRO HAUSER [address] [place], [place] [phone] Business (1) In 3 days In the event that this physician does not participate in your insurance network, please consult with your insurance company to find a nearby participating provider. Patient Education Materials: Knee Sprain, Adult; How to Use a Knee Immobilizer; Radial Nerve Palsy; Crutch Use, Adult, Wxkl-so-Esxz A MESSAGE TO ALL PATIENTS REGARDING OPIOIDS PRESCRIPTION OPIOIDS: WHAT YOU NEED TO KNOW Prescription opioids can be used to help relieve mqilmieh-jd-sgxypf pain and are often prescribed following a [...] y (more content not included)... Normal [facility] XR Knee Complete 4+ Views Mónica [...] = na DAP = na Normal [facility] Quick Strepon 03-02-2023 S. pyogenes Org specific cx Ql (Throat) Negative [place] Other Quick Strep [place] Other US PELVISon 07-03-2022 US PELVIS EXAMINATION: [...] JOSÉ MIGUEL LAM Date: 2022-07-03 16:20 Normal [facility] Basophils Auto (Bld) [#/Vol] Ordered By: Melo Diana on 06-09-2022 Basophils (Bld) [#/Vol] 0.0 10*3/uL 0.0-0.2 [facility] Basophils/100 WBC Auto (Bld) Ordered By: Melo Diana on 06-09-2022 Basophils/100 WBC (Bld) 0.1 % . [facility] Creatinine and Glomerular fi ltration rate.predicted panel (S/P/Bld)Ordered By: Melo Diana on 06-09-2022 Creatinine [Mass/Vol] 0.61 mg/dL 0.44-1.[address] [facility] Eosinophils Auto (Bld) [#/Vo l]Ordered By: Melo Diana on 06-09-2022 Eosinophils (Bld) [#/Vol] 0.0 10*3/uL 0.0-0.45 [facility] Eosinophils/100 WBC Auto (Bl d)Ordered By: Melo Diana on 06-09-2022 Eosinophils/100 WBC (Bld) 0.0 % . [facility] Erythrocyte distribution wid th Auto (RBC) [Ratio]Ordered By: Melo Diana on 06-09-2022 Erythrocyte distribution width (RBC) [Ratio] 13.3 % 11.9-15.3 [facility] Estimated glomerular filtrat ion rate (GFR) non- AmericanOrdered By: Melo Diana on 06-09-2022 GFR/1.73 sq M.predicted among non-blacks MDRD (S/P/Bld) [Vol rate/Area] > 60 mL/Min [facility] Hematocrit Auto (Bld) [Volum e fraction]Ordered By: Melo Diana on 06-09-2022 Hematocrit (Bld) [Volume fraction] 36.1 % 34.0-46.4 [facility] Hemoglobin [Mass/volume] in BloodOrdered By: Melo Diana on 06-09-2022 Hemoglobin (Bld) [Mass/Vol] 12.1 g/dL 11.8-15.4 [facility] Leukocytes [#/volume] correc gloria for nucleated erythrocytes in Blood by Automated counOrdered By: Melo Diana on 06-09-2022 WBC corrected for nucl RBC Auto (Bld) [#/Vol] 9.8 10*3/uL 3.8-11.6 [facility] Lymphocytes Auto (Bld) [#/Vo l]Ordered By: Melo Diana on 06-09-2022 Lymphocytes (Bld) [#/Vol] 1.6 10*3/uL 1.00-4.8 [facility] Lymphocytes/100 WBC Auto (Bl d)Ordered By: Melo Diana on 06-09-2022 Lymphocytes/100 WBC (Bld) 16.1 % . [facility] MCH Auto (RBC) [Entitic mass ]Ordered By: Melo Diana on 06-09-2022 MCH (RBC) [Entitic mass] 29.4 pg 24.7-34.3 [facility] MCHC Auto (RBC) [Mass/Vol]Or dered By: Melo Diana on 06-09-2022 MCHC (RBC) [Mass/Vol] 33.5 g/dL 32.0-35.[address] [facility] MCV Auto (RBC) [Entitic vol] Ordered By: Melo Diana on 06-09-2022 MCV (RBC) [Entitic vol] 87.8 fL 80-100 [facility] Monocytes Auto (Bld) [#/Vol] Ordered By: Melo Diana on 06-09-2022 Monocytes (Bld) [#/Vol] 1.0 10*3/uL 0.0-0.8 [facility] Monocytes/100 WBC Auto (Bld) Ordered By: Melo Diana on 06-09-2022 Monocytes/100 WBC (Bld) 10.4 % . [facility] Neutrophils Auto (Bld) [#/Vo l]Ordered By: Melo Diana on 06-09-2022 Neutrophils (Bld) [#/Vol] 7.2 10*3/uL 1.8-7.7 [facility] Neutrophils/100 WBC Auto (Bl d)Ordered By: Melo Diana on 06-09-2022 Neutrophils/100 WBC (Bld) 73.4 % . [facility] No Panel InformationOrdered By: Melo Diana on 06-09-2022 Estimated GFR () > 60 mL/Min [facility] Comment on above: GFR estimated refere nce range: According to KDOQI guidelines, <60 ml/min/1.73m2 is sufficient to diagnose a patient with chronic kidney disease. Pharmacy Creatinine Clearance (Chem 181.95 [facility] Nucleated erythrocytes [Pres ence] in Blood by Automated countOrdered By: Melo Diana on 06-09-2022 Nucleated RBC Auto Ql (Bld) 0.1 /100{WBC} 0-0.5 [facility] Platelet mean volume Auto (B ld) [Entitic vol]Ordered By: Melo Diana on 06-09-2022 Platelet mean volume (Bld) [Entitic vol] 9.5 fL 6.3-10.7 [facility] Platelets Auto (Bld) [#/Vol] Ordered By: Melo Diana on 06-09-2022 Platelets (Bld) [#/Vol] 273 10*3/uL 150-450 [facility] RBC Auto (Bld) [#/Vol]Ordere d By: Melo Diana on 06-09-2022 RBC (Bld) [#/Vol] 4.11 10*6/uL 3.60-5.00 [facility] Serum or plasma anion gap de terminationOrdered By: Melo Diana on 06-09-2022 Anion gap [Moles/Vol] 11.8 mmol/L 6.0-15.0 [facility] Serum or plasma calcium diomedes urement (mass/volume)Ordered By: Melo Diana on 06-09-2022 Calcium [Mass/Vol] 8.3 mg/dL 8.2-10.2 [facility] Serum or plasma chloride omar surement (moles/volume)Ordered By: Melo Diana on 06-09-2022 Chloride [Moles/Vol] 98 mmol/L 95-114 [facility] Serum or plasma glucose diomedes urement (mass/volume)Ordered By: Melo Diana on 06-09-2022 Glucose [Mass/Vol] 97 mg/dL 70-100 [facility] Comment on above: ADA recommended refe rence rangeRandom Glucose Reference Range is dependent on time and content of last meal. Glucose of more than 200 mg/dL in a nonstressed, ambulatory subject supports the diagnosis of Diabetes Mellitus. Serum or plasma potassium me asurement (moles/volume)Ordered By: Melo Diana on 06-09-2022 Potassium [Moles/Vol] 4.0 mmol/L 3.5-5.[address] [facility] Serum or plasma sodium measu rement (moles/volume)Ordered By: Melo Diana on 06-09-2022 Sodium [Moles/Vol] 132 mmol/L 136-146 [facility] Serum or plasma total carbon dioxide measurement (moles/volume)Ordered By: Melo Diana on 06-09-2022 CO2 [Moles/Vol] 26.2 mmol/L 22.0-30.0 [facility] Serum or plasma urea nitroge n measurement (mass/volume)Ordered By: Melo Diana on 06-09-2022 Urea nitrogen [Mass/Vol] 11 mg/dL 02-10 [facility] WBC Auto (Bld) [#/Vol]Ordere d By: Melo Diana on 06-09-2022 WBC (Bld) [#/Vol] 9.8 10*3/uL 3.8-11.6 [facility] Activated partial thrombopla stin time (aPTT) in platelet poor plasma by coagulation aOrdered By: Lorelei Avery on 06-05-2022 aPTT Coag (PPP) [Time] 32.1 s 25.1-36.5 [facility] Aerobic cultureOrdered By: Zehra Avery on 06-05-2022 Bacteria identified Aer cx Nom (Unsp spec) No Growth 2 Days [facility] Albumin [Mass/volume] in Cer ebral spinal fluidOrdered By: Lorelei Avery on 06-05-2022 Albumin (CSF) [Mass/Vol] 35 mg/dL 12-16 [facility] Albumin [Mass/volume] in Ser um or PlasmaOrdered By: Lorelei Avery on 06-05-2022 Albumin [Mass/Vol] 4.3 g/dL 3.9-5.0 [facility] Anaerobic cultureOrdered By: Lorelei Avery on 06-05-2022 Bacteria identified Anaer cx Nom (Unsp spec) No Anaerobes Isolated 3 Days [facility] CSF IgG/albumin ratioOrdered By: Lorelei Avery on 06-05-2022 IgG/Albumin (CSF) [Mass ratio] 0.24 0.00-0.25 [facility] Cerebrospinal fluid IgG inde xOrdered By: Lorelei Avery on 06-05-2022 IgG clearance/Albumin clearance (S+CSF) [Ratio] 0.8 0.0-0.7 [facility] Cerebrospinal fluid eosinoph il percentageOrdered By: Lorelei Avery on 06-05-2022 Eosinophils/100 WBC (CSF) 0 % 0-0 [facility] Cerebrospinal fluid lymphocy te percentageOrdered By: Lorelei Avery on 06-05-2022 Lymphocytes/Leukocytes Manual cnt (CSF) [Pure # fraction] 87 % 40-80 [facility] Cerebrospinal fluid monocyte percentageOrdered By: Lorelei Avery on 06-05-2022 Monocytes/100 WBC (CSF) 9 % 15-45 [facility] Cerebrospinal fluid neutroph il percentageOrdered By: Lorelei Avery on 06-05-2022 Neutrophils/100 WBC (CSF) 4 % 0-6 [facility] Cerebrospinal fluid post-suraj trifugation appearance determinationOrdered By: Lorelei Avery on 06-05-2022 Appearance (Spun CSF) Colorless Colorless [facility] Cerebrospinal fluid sample t ube volume measurementOrdered By: Loerlei Avery on 06-05-2022 Specimen volume (CSF) 14.[address] [facility] Color CSFOrdered By: Lorelei Avery on 06-05-2022 Color (CSF) Colorless Colorless [facility] Gram stain for investigation of transfusion reactionOrdered By: Lorelei Avery on 06-05-2022 Microscopic observation Gram stain Nom (Unsp spec) [facility] HIV 1 and HIV-2 antibody ass ay with HIV-1 p24 antigen detectionOrdered By: Lorelei Avery on 06-05-2022 HIV 1+2 Ab+HIV1 p24 Ag IA Ql Non-Reactive Non Reactive [facility] Comment on above: HIV NegativeHIV-1/HI V-2 antibodies and HIV-1 p24 antigen were NOTdetected. There is no laboratory evidence of HIV infection.Performed at: - [facility] [address] [id number] Director: Steve Fatima PhD, Phone: [phone] IgG [Mass/volume] in Cerebra l spinal fluidOrdered By: Lorelei Avery on 06-05-2022 IgG (CSF) [Mass/Vol] 8.3 mg/dL 0.0-6.7 [facility] IgG [Mass/volume] in Serum o r PlasmaOrdered By: Lorelei Avery on 06-05-2022 IgG [Mass/Vol] 1274 mg/dL 719-1475 [facility] IgG synthesis rate [Mass/mily e] in Serum and CSF by calculationOrdered By: Lorelei Avery on 06-05-2022 IgG synthesis rate Calc (S+CSF) [Mass/Time] 13.9 mg/day -9.9 TO +3.3 [facility] Comment on above: Performed at: CB - [facility] [address] [id number] Director: Steve Fatima PhD, Phone: [phone] Laboratory - CoagulationOrde red By: Lorelei Avery on 06-05-2022 PT Coag (PPP) [Time] 13.4 s 9.0-12.9 [facility] Manual cerebrospinal fluid e rythrocytes count (number/volume)Ordered By: Lorelei Avery on 06-05-2022 RBC Manual cnt (CSF) [#/Vol] 0 /uL [facility] Comment on above: The reference interv al and other method performance specifications have not been established for this body fluid. The test result must be integrated into the clinical context for interpretation. No Panel InformationOrdered By: Lorelei Avery on 06-05-2022 CSF Appearance Clear Clear [facility] CSF Glucose 46 mg/dL 40-70 [facility] CSF Total Protein 59 mg/dL 15-45 [facility] CSF Tube Number Tube number: 1 [facility] No Panel InformationOrdered By: Kt Pearson on 06-05-2022 Anti-Nuclear Antibody Comment 2 See comment . [facility] Comment on above: For more information about Hep-2 cell patterns useCOPsyncerSeaChange International.Calm, the official website for the InternationalSimply Measureds on Antinuclear Antibody (LIZZY) Patterns (ICAP). ----A positive LIZZY result may occur in healthy individuals (lowtiter) or be associated with a variety of diseases. Seeinterpretation chart which is not all inclusive:Pattern Antigen Detected Suggested Disease Association Homogeneous DNA(ds,ss), SLE - High titers Nucleosomes, Histones Drug-induced SLE Speckled Sm, REBAR BENDER, SCL-70, SLE,MCTD,PSS (diffuse form), SS-A/SS-B Sjogrens Nucleolar SCL-70, PM-1/SCL High titers Scleroderma, PM/DM Centromere Centromere PSS (limited form) w/Crest syndrome variable Nuclear Dot Sp100,u69-cbnsgc Primary Biliary Cirrhosis Nuclear GP210, Primary Biliary CirrhosisMembrane miranda A,B,C Performed at: [facility] [address] [id number] Director: Steve Fatima PhD, Phone: [phone] REBAR BENDER Antibody 0.2 AI 0.0-0.9 [facility] Nucleated cells [#/volume] i n Cerebral spinal fluid by Manual countOrdered By: Lorelei Avery on 06-05-2022 Nucleated cells Manual cnt (CSF) [#/Vol] 0.16 10*3/uL 0-5 [facility] Comment on above: Critical valueresult calledat 1732 on 06/05/22 Platelet poor plasma interna tional normalized ratio (INR) by coagulation assay (relatOrdered By: Lorelei Avery on 06-05-2022 INR Coag (PPP) [Relative time] 1.2 {INR} [facility] Comment on above: INR Therapeutic Rang e [...] Ab IA Qn (S) 0.2 AI 0.0-0.9 [facility] Comment on above: Performed at: [facility] [address] [id number] Director: Steve Fatima PhD, Phone: [phone] Serum Sjogrens syndrome-A ex tractable nuclear antibody assay (units/volume)Ordered By: Kt Pearson on 06-05-2022 Sjogrens syndrome-A extractable nuclear Ab Qn (S) 0.2 AI 0.0-0.9 [facility] Serum Sjogrens syndrome-B ex tractable nuclear antibody assay (units/volume)Ordered By: Kt Pearson on 06-05-2022 Sjogrens syndrome-B extractable nuclear Ab Qn (S) <0.2 AI 0.0-0.9 [facility] Serum Zamora extractable nucl ear antigen (HERNESTO) antibody assay (units/volume)Ordered By: Kt Pearson on 06-05-2022 Zamora extractable nuclear Ab Qn (S) <0.2 AI 0.0-0.9 [facility] Serum angiotensin converting enzyme (SUSIE) measurementOrdered By: Kt Pearson on 06-05-2022 Angiotensin converting enzyme [Catalytic activity/Vol] 26 U/L 1482 [facility] Comment on above: Performed at: [facility] [address] [id number] Director: Steve Fatima PhD, Phone: [phone] Serum homogeneous pattern an tinuclear antibody (LIZZY) titerOrdered By: Kt Pearson on 06-05-2022 Homogenous nuclear Ab pattern (S) [Titer] 1:160 . [facility] Comment on above: ICAP nomenclature: A C-1 Serum nuclear antibody titer Ordered By: Kt Pearson on 06-05-2022 Nuclear Ab (S) [Titer] Positive . [facility] Comment on above: Negative <1:80 Viki frost 1:80 Positive >1:80 Chlamydia trachomatis DNA [P resence] in Specimen by TERESA with probe detectionOrdered By: Isaías Pan on 06-04-2022 C. trachomatis DNA TERESA+probe Ql (Unsp spec) Negative Negative [facility] Fungal cultureOrdered By: Mónica Pan on 06-04-2022 Fungus identified Cx Nom (Unsp spec) [facility] Herpes simplex virus (HSV) c ulture with typingOrdered By: Isaías Pan on 06-04-2022 HSV identified Org specific cx Nom (Unsp spec) See comment . [facility] Comment on above: Positive for Herpes simplex virus type-2. Typing wasconfirmed by monoclonal antibody microscopicimmunofluorescence.Performed at: [address] [id number] Director: Steve Fatima PhD, Phone: [phone] Neisseria gonorrhoeae DNA [P resence] in Specimen by TERESA with probe detectionOrdered By: Isaías Pan on 06-04-2022 N. gonorrhoeae DNA TERESA+probe Ql (Unsp spec) Negative Negative [facility] Trichomonas vaginalis DNA [P resence] in Specimen by TERESA with probe detectionOrdered By: Isaías Pan on 06-04-2022 T. vaginalis DNA TERESA+probe Ql (Unsp spec) Negative Negative [facility] Comment on above: Performed at: [address] [id number] Director: Evelyn Arnold MD, Phone: [phone] Trichomonas vaginalis detect ion by wet preparationOrdered By: Isaías Pan on 06-04-2022 T. vaginalis Wet prep Ql (Unsp spec) [facility] Albumin [Mass/volume] in Ser um or PlasmaOrdered By: Ravi Zhang on 06-02-2022 Albumin [Mass/Vol] 3.5 g/dL 3.2-5.5 [facility] C reactive protein [Mass/vol ume] in Serum or PlasmaOrdered By: Ravi Zhang on 06-02-2022 CRP [Mass/Vol] 0.6 mg/dL 0.0-1.0 [facility] Direct bilirubin measurement Ordered By: Ravi Zhang on 06-02-2022 Bilirubin.direct [Mass/Vol] 0.2 mg/dL 0.0-0.4 [facility] Erythrocyte sedimentation ra te by Photometric methodOrdered By: Ravi Zhang on 06-02-2022 ESR Photometric method (Bld) [Velocity] 26 mm/hr 0-19 [facility] Folate [Mass/volume] in Seru m or PlasmaOrdered By: Ravi Zhang on 06-02-2022 Folate [Mass/Vol] 16.6 ng/mL >5.9 [facility] Comment on above: Folate reference ran ge: >5.9 ng/mlThe WHO technical consultation on folate and vitamin [id number] has determined that folate concentrations lessthan 4 ng/ml are considered deficient. Globulin Calc (S) [Mass/Vol] Ordered By: Ravi Zhang on 06-02-2022 Globulin (S) [Mass/Vol] 3.7 g/dL [facility] Glucose mean value [Mass/vol ume] in Blood Estimated from glycated hemoglobinOrdered By: Ravi Zhang on 06-02-2022 Average glucose Estimated from glycated hemoglobin (Bld) [Mass/Vol] 103 mg/dL [facility] Hemoglobin A1c percentageOrd ered By: Ravi Zhang on 06-02-2022 HbA1c (Bld) [Mass fraction] 5.2 % 4.3-5.6 [facility] Comment on above: Increased risk for d iabetes: 5.7 - 6.4diabetes: >6.4glycemic control for adults with diabetes: <7.0 Laboratory - Chemistry and C hemistry - challengeOrdered By: Ravi Zhang on 06-02-2022 Cobalamin (Vitamin B12) [Mass/Vol] 368 pg/mL 180-914 [facility] Magnesium [Mass/Vol] 2.1 mg/dL 1.6-2.6 [facility] Phosphate [Mass/volume] in S [place] or PlasmaOrdered By: Ravi Zhang on 06-02-2022 Phosphate [Mass/Vol] 3.8 mg/dL 2.5-4.6 [facility] Protein [Mass/volume] in Ser um or PlasmaOrdered By: Ravi Zhang on 06-02-2022 Protein [Mass/Vol] 7.2 g/dL 6.1-7.9 [facility] Serum or plasma alanine hooper otransferase measurement without P-5'-P (enzymatic activiOrdered By: Ravi Zhang on 06-02-2022 ALT No additional P-5'-P [Catalytic activity/Vol] 26 U/L 10-60 [facility] Serum or plasma albumin/glob ulin mass ratioOrdered By: Ravi Zhang on 06-02-2022 Albumin/Globulin [Mass ratio] 0.9 {ratio} [facility] Serum or plasma alkaline keven sphatase measurement (enzymatic activity/volume)Ordered By: Ravi Zhang on 06-02-2022 ALP [Catalytic activity/Vol] 60 U/L 32-92 [facility] Serum or plasma aspartate am inotransferase measurement (enzymatic activity/volume)Ordered By: Ravi Zhang on 06-02-2022 AST [Catalytic activity/Vol] 31 U/L 10-42 [facility] Serum or plasma non-glucuron idated bilirubin measurement (mass/volume)Ordered By: Ravi Zhang on 06-02-2022 Bilirubin.indirect [Mass/Vol] 0.7 mg/dL [facility] Serum or plasma thyroxine (T 4) measurement (mass/volume)Ordered By: Ravi Zhang on 06-02-2022 T4 [Mass/Vol] 9.70 ug/dL 5.39-11.82 [facility] Serum or plasma total biliru bin measurement (mass/volume)Ordered By: Ravi Zhang on 06-02-2022 Bilirubin [Mass/Vol] 0.9 mg/dL 0.3-1.2 [facility] TSH DL <= 0.005 mIU/L QnOrde red By: Ravi Zhang on 06-02-2022 TSH Qn 0.85 m[IU]/L 0.45-5.33 [facility] Thyroxine (T4) free [Mass/vo lume] in Serum or PlasmaOrdered By: Ravi Zhang on 01-13-2023 Free T4 [Mass/Vol] 0.96 ng/dL 0.61-1.12 [facility] MICRO OTHER TESTSOrdered By: Sree Revees on 11-24-2021 Rapid COV Int NEG [facility] (11/24/21 10:53 AM) Normal FT Man UA SS Rapid COV Int POS [facility]l [facility] (11/24/21 10:53 AM) Normal FT Man UA SS SARS-CoV-2 (COVID-19) RNA TERESA+probe Ql (Unsp spec) Not Detected (11/24/21 10:53 AM) Normal Not Detected FT Man UA SS Vital Signs Date Time Vital Sign Value Performing Clinician Facility 06-17-2024 11:34-0500 Body mass index (BMI) [Ratio] 24.39 kg/m2 Benji Madhu DO Work Phone: [facility] 06-17-2024 11:34-0500 Body weight 77.11 kg Benji Madhu DO Work Phone: [facility] 06-17-2024 11:34-0500 Diastolic blood pressure 62 mm[Hg] Benji Madhu DO Work Phone: [facility] 06-17-2024 11:34-0500 Systolic blood pressure 116 mm[Hg] Benji Madhu DO Work Phone: [facility] 05-20-2024 10:23-0500 Body mass index (BMI) [Ratio] 23.82 kg/m2 [place] [facility] 05-20-2024 10:23-0500 Body weight 75.3 kg [place] [facility] 04-08-2024 18:25-0500 Body mass index (BMI) [Ratio] 26.54 kg/m2 Samra Rohrersville DO Work Phone: [facility] 04-08-2024 18:25-0500 Body temperature 98.2 [degF] Samra Rohrersville DO Work Phone: [facility] 04-08-2024 18:25-0500 Body weight 83.92 kg Samra Rohrersville DO Work Phone: [facility] 04-08-2024 18:25-0500 Diastolic blood pressure 78 mm[Hg] Samra Rohrersville DO Work Phone: [facility] 04-08-2024 18:25-0500 Heart rate 103 /min Samra Rohrersville DO Work Phone: [facility] 04-08-2024 18:25-0500 SaO2% (BldA) [Mass fraction] 98 % Samra Rohrersville DO Work Phone: [facility] 04-08-2024 18:25-0500 Systolic blood pressure 118 mm[Hg] Samra Rohrersville DO Work Phone: [facility] 02-11-2024 10:00-0400 Body height 177.8 cm [facility] Work Phone: [facility] 02-11-2024 10:00-0400 Body mass index (BMI) [Ratio] 26.4 kg/m2 [facility] Work Phone: [facility] 02-11-2024 10:00-0400 Body weight 83.46 kg [facility] Work Phone: [facility] 10-28-2023 11:24-0400 Body temperature 98.42 [degF] Rupert Wallacee [facility] 10-28-2023 11:24-0400 Diastolic blood pressure 73 mm[Hg] Rupert Christie [facility] 10-28-2023 11:24-0400 Heart rate 95 /min Rupert Christie [facility] 10-28-2023 11:24-0400 Respiratory rate 16 /min Rupert Wallacee [facility] 10-28-2023 11:24-0400 SaO2% (BldA) [Mass fraction] 100 % Rupert Christie [facility] 10-28-2023 11:24-0400 Systolic blood pressure 131 mm[Hg] Rupert Christie [facility] 03-02-2023 11:25-0400 Body height 176.53 cm Racheal Greenberg Other [place] Other 03-02-2023 11:25-0400 Body mass index (BMI) [Ratio] 28.31 kg/m2 Racheal Greenberg Other [place] Other 03-02-2023 11:25-0400 Body temperature 98.2 [degF] Racheal Greenberg Other [place] Other 03-02-2023 11:25-0400 Body weight 88.23 kg Racheal Greenberg Other [place] Other 03-02-2023 11:25-0400 Respiratory rate 18 /min Racheal Greenberg Other [place] Other 03-02-2023 11:25-0400 SaO2% (BldA) [Mass fraction] 99 % Racheal Greenberg Other [place] Other 01-07-2023 11:18-0400 Body height 182.88 cm WINNIE Veraa [employer] Work Phone: [facility] 01-07-2023 11:18-0400 Body temperature 98.7 [degF] 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 [employer] Work Phone: [facility] 01-07-2023 11:18-0400 Body weight 87.85 kg 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 [employer] Work Phone: [facility] 01-07-2023 11:18-0400 Diastolic blood pressure 93 mm[Hg] 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 Morro Easterwood Work Phone: [facility] 01-07-2023 11:18-0400 Heart rate 102 /min 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 [employer] Work Phone: [facility] 01-07-2023 11:18-0400 Respiratory rate 20 /min 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 Morro Beyererherb Work Phone: [facility] 01-07-2023 11:18-0400 SaO2% (BldA) [Mass fraction] 99 % 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 Morro Beyererwood Work Phone: [facility] 01-07-2023 11:18-0400 Systolic blood pressure 146 mm[Hg] 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 Morro Beyererwood Work Phone: [facility] 06-15-2022 08:13-0500 Blood Pressure Location Iman Lue [facility] 06-15-2022 08:13-0500 Diastolic blood pressure 88 mm[Hg] Iman Lue [facility] 06-15-2022 08:13-0500 Heart rate 93 /min Iman Lue [facility] 06-15-2022 08:13-0500 Systolic blood pressure 125 mm[Hg] Iman Lue [facility] 06-15-2022 08:13-0500 weight 1.73 Iman Lue [facility] Comment on above: Result Comment: ^~:!ZScore Source -[facility] 06-15-2022 08:13-0500 Weight Percentile 95.83 % Iman Lue [facility] Comment on above: Result Comment: ^~:!Percentile Source -[facility] 06-14-2022 14:00-0500 Body height 176.53 cm [employer]Craz[employer] Other [place] Other 06-14-2022 14:00-0500 Body mass index (BMI) [Ratio] 26.49 kg/m2 Morro Easterwood Other [place] Other 06-14-2022 14:00-0500 Body temperature 98.4 [degF] Morro Easterwood Other [place] Other 06-14-2022 14:00-0500 Body weight 82.56 kg Morro Pepitoerwood Other [place] Other 06-14-2022 14:00-0500 Diastolic blood pressure 82 mm[Hg] Morro Easterwood Other [place] Other 06-14-2022 14:00-0500 Respiratory rate 20 /min Morro Pepitoerwood Other [place] Other 06-14-2022 14:00-0500 SaO2% (BldA) [Mass fraction] 98 % [employer] Other [place] Other 06-14-2022 14:00-0500 Systolic blood pressure 120 mm[Hg] [employer] Other [place] Other 06-09-2022 17:36-0500 Body temperature 97.8 [degF] DO Ravi Lindbloom Work Phone: [facility] 06-09-2022 17:36-0500 Diastolic blood pressure 65 mm[Hg] DO Ravi Lindbloom Work Phone: [facility] 06-09-2022 17:36-0500 Heart rate 78 /min DO Ravi Lindbloom Work Phone: [facility] 06-09-2022 17:36-0500 Respiratory rate 18 /min DO Ravi Lindbloom Work Phone: [facility] 06-09-2022 17:36-0500 SaO2% (BldA) [Mass fraction] 96 % DO Ravi Lindbloom Work Phone: [facility] 06-09-2022 17:36-0500 Systolic blood pressure 129 mm[Hg] DO Ravi Lindbloom Work Phone: [facility] 06-09-2022 03:16-0500 Body weight 83.2 kg DO Ravi Lindbloom Work Phone: [facility] 06-06-2022 13:58-0500 Body height 187.96 cm DO Ravi Lindbloom Work Phone: [facility] 05-24-2022 15:07-0500 Blood Pressure Location Loreto LOMAXLEY [facility] 05-24-2022 15:07-0500 Body temperature 98.06 [degF] Loreto DONALDSON [facility] 05-24-2022 15:07-0500 bodymassindex 0.85 Loreto DONALDSON [facility] Comment on above: Result Comment: ^~:!ZScore [facility] 05-24-2022 15:07-0500 Diastolic blood pressure 70 mm[Hg] Loreto DONALDSON [facility] 05-24-2022 15:07-0500 Heart rate 72 /min Loreto LOMAXLEY [facility] 05-24-2022 15:07-0500 Height/Length Percentile 99.82 Loreto DONALDSON [facility] Comment on above: Result Comment: ^~:!Percentile Source -[facility] 05-24-2022 15:07-0500 Height/Length Z-Score 2.91 Loreto DONALDSON [facility] Comment on above: Result Comment: ^~:!ZScore Source [facility] 05-24-2022 15:07-0500 SaO2% (BldA) [Mass fraction] 99 % Loreto DONALDSON [facility] 05-24-2022 15:07-0500 Systolic blood pressure 110 mm[Hg] Loreto DONALDSON [facility] 05-24-2022 15:07-0500 weight 1.68 Loreto DONALDSON [facility] Comment on above: Result Comment: [facility] 15:07-0500 Weight Percentile 95.39 % Loreto DONALDSON [facility] Comment on above: Result Comment: ^~:!Percentile Source -[facility] 01-05-2022 09:00-0400 Body height 176.53 cm Morro [employer] Other [place] Other 01-05-2022 09:00-0400 Body mass index (BMI) [Ratio] 26.34 kg/m2 [employer] Other [place] Other 01-05-2022 09:00-0400 Body temperature 98 [degF] [employer] Other [place] Other 01-05-2022 09:00-0400 Body weight 82.1 kg Morro [employer] Other [place] Other 01-05-2022 09:00-0400 Diastolic blood pressure 78 mm[Hg] [employer] Other [place] Other 01-05-2022 09:00-0400 Respiratory rate 20 /min Morro Easterwood Other [place] Other 01-05-2022 09:00-0400 SaO2% (BldA) [Mass fraction] 99 % Morro Pepitoerwood Other [place] Other 01-05-2022 09:00-0400 Systolic blood pressure 120 mm[Hg] Morro Easterwood Other [place] Other 11-22-2021 11:30-0400 Body height 176.53 cm Morro [employer] Other [place] Other 11-22-2021 11:30-0400 Body mass index (BMI) [Ratio] 25.62 kg/m2 [employer] Other [place] Other 11-22-2021 11:30-0400 Body temperature 98.1 [degF] Morro Easterwood Other [place] Other 11-22-2021 11:30-0400 Body weight 79.83 kg Morro Easterwood Other [place] Other 11-22-2021 11:30-0400 Diastolic blood pressure 80 mm[Hg] Morro Easterwood Other [place] Other 11-22-2021 11:30-0400 Respiratory rate 20 /min [employer] Other [place] Other 11-22-2021 11:30-0400 SaO2% (BldA) [Mass fraction] 99 % Morro Pepitoerwood Other [place] Other 11-22-2021 11:30-0400 Systolic blood pressure 120 mm[Hg] Morro Easterwood Other [place] Other 09-13-2021 15:00-0400 Body height 176.53 cm Morro Pepitoerwood Other [place] Other 09-13-2021 15:00-0400 Body mass index (BMI) [Ratio] 25.76 kg/m2 Morro Pepitoerwood Other [place] Other 09-13-2021 15:00-0400 Body temperature 98.4 [degF] Morro Pepitoerwood Other [place] Other 09-13-2021 15:00-0400 Body weight 80.29 kg Morro Hauser Other [place] Other 09-13-2021 15:00-0400 Diastolic blood pressure 70 mm[Hg] Morro Pepitoerwood Other [place] Other 09-13-2021 15:00-0400 Respiratory rate 20 /min Morro Easterwood Other [place] Other 09-13-2021 15:00-0400 SaO2% (BldA) [Mass fraction] 98 % Morro Easterwood Other [place] Other 09-13-2021 15:00-0400 Systolic blood pressure 108 mm[Hg] Morro Easterwood Other [place] Other Encounters Encounter Date Encounter Type Care Provider Facility Start: 07-16-2024 End: 07-16-2024 Bamboo flowsheet Susan RAZO Work Phone: [facility] Start: 07-16-2024 End: 07-16-2024 Bamboo flowsheet Susan RAZO Work Phone: [facility] Start: 06-17-2024 End: 06-17-2024 Bamboo flowsheet Benji Madhu DO Work Phone: [facility] Start: 06-17-2024 End: 06-17-2024 Bamboo flowsheet Benji Madhu DO Work Phone: [facility] Start: 06-17-2024 End: 06-17-2024 Office outpatient visit 15 minutes Benji Madhu DO Work Phone: [facility] Comment on above: Second trimester pre gnancy; 15 weeks gestation of Start: 06-17-2024 End: 06-17-2024 ambulatory BENJI MADHU Not Available Start: 06-04-2024 End: 06-04-2024 Clinisync Result Encounter Benji Madhu DO Work Phone: [facility] Unsolicited Start: 06-04-2024 End: 06-04-2024 Clinisync Result Encounter Benji Madhu DO Work Phone: [facility] Unsolicited Start: 05-20-2024 End: 05-20-2024 ambulatory [facility] Madhu Nurse [facility] Comment on above: GA: 11w0d Start: 05-14-2024 End: 05-14-2024 ambulatory Percy Mendoza Facility:[facility] Start: 04-15-2024 End: 04-15-2024 Office outpatient visit 15 minutes Benji Madhu DO Work Phone: [facility] Comment on above: Encounter for survei llance of other contraceptive Start: 04-08-2024 End: 04-08-2024 ambulatory SAMRA IRVIN Not Available Start: 04-08-2024 End: 04-08-2024 Office outpatient visit 15 minutes Samra L Albaro DO Work Phone: [facility] Comment [...] End: 11-28-2023 Patient encounter procedure Sampson Ayala [facility] Start: 11-12-2023 End: 11-12-2023 ambulatory SAMPSON AYALA Not Available Start: 10-28-2023 End: 10-28-2023 Emergency department patient visit Rupert Soriano [facility] Start: 03-02-2023 End: 03-02-2023 ambulatory Racheal Greenberg Other [place] Other Start: 03-02-2023 Office outpatient vi sit 15 minutes aRcheal Greenberg [facility] Start: 01-07-2023 End: 01-07-2023 Emergency department patient visit WINNIE Hauser Work Phone: [facility] Work Phone: Start: 11-15-2022 End: 11-25-2022 Pre-admission assessment Carlin Fuentes [facility] Start: 08-16-2022 End: 08-16-2022 ambulatory Morro Hauser Other [place] Other Start: 08-16-2022 Telephone encounter Morro Olmoswood [facility] Start: 07-03-2022 End: 07-04-[address] JOSÉ MIGUEL LAM Facility: Start: 06-15-2022 End: 06-15-2022 Patient encounter procedure Iman Gomez [facility] Start: 06-14-2022 End: 06-14-2022 ambulatory Morro Hauser Other [place] Other Start: 06-14-2022 Office outpatient vi sit 40 minutes Morro Amariliswood [facility] Start: 06-09-2022 End: 06-09-2022 ambulatory Morrocindy Olmoswood Other [place] Other Start: 06-09-2022 Telephone encounter Morro Hauser [facility] Start: 06-02-2022 End: 06-09-2022 Evaluation and management of inpatient DO Ravi Zhang Work Phone: [facility] Work Phone: Start: 05-24-2022 End: 05-24-2022 Patient encounter procedure Loreto DONALDSON [facility] Start: 01-05-2022 End: 01-05-2022 ambulatory Morro Pepitoerwood Other [place] Other Start: 01-05-2022 Office outpatient vi sit 15 minutes Morro Olmoswood [facility] Start: 11-24-2021 End: 11-24-2021 ambulatory Morro Hauser Other [place] Other Start: 11-24-2021 Telephone encounter Morro Hauser [facility] Start: 11-24-2021 End: 02-22-[address] [facility] Start: 11-22-2021 End: 11-22-2021 ambulatory Morro Hauser Other [place] Other Start: 11-22-2021 Office outpatient vi sit 15 minutes Morro Hauser [facility] Start: 09-13-2021 End: 09-13-2021 ambulatory Morro Hauser Other [place] Other Start: 09-13-2021 Office outpatient vi sit 15 minutes Morro Hauser [facility] Procedures Date Procedure Procedure Detail Performing Clinician Start: 06-17-2024 Urnls dip stick/tabl et rgnt non-auto w/o micrscp Benji Madhu DO Work Phone: Start: 06-04-2024 BOX TEST Benji Fazi o DO Work Phone: Start: 05-20-2024 Urine test visual color cmprsn meths Benji Madhu DO Work Phone: Start: 04-08-2024 Urnls dip [...] Treatment Date Care Activity Detail Author Start: 07-16-2024 End: 07-16-2024 Patient encounter procedure 07/16/2024 10:30 AM EST Routine [facility] [address] [place] [id number] Susan Montano PA [address] [place] [address] [facility] Start: 06-17-2024 End: 06-17-2024 Patient encounter procedure [facility] Comment on above: Arrived Start: 05-20-2024 End: 05-20-2025 ABO/Rh ABO/Rh Lab [...] first trimester Expected: 05/20/2024 (Approximate), Expires: 05/20/2025 [facility] Comment on above: Expected: 05/20/2024 (Approximate), Expires: 05/20/2025 Start: 04-15-2024 End: 04-15-2024 Patient encounter procedure 04/15/2024 10:20 AM EST Office Visit [facility] [address] [place] [id number] Benji Leung DO [address] [place] [address] [facility] Start: 02-11-2024 End: 02-11-2024 Patient encounter procedure 02/11/2024 10:00 AM EDT Office Visit [facility] [address] [place] [id number] Sampson Ayala PA [address] [place] [address] Arrived [facility] Comment on above: Arrived Start: 06-09-2022 [facility] Start: 06-06-2022 Referral to infectio us diseases physician [facility] Start: 06-05-2022 Borrelia burgdorferi DNA assay [facility] Start: 06-05-2022 End: 06-05-2022 [facility] Start: 06-05-2022 [facility] Start: 06-04-2022 Referral to communications engineering technician [facility] Start: 06-04-2022 Referral to urologist Zehra [facility] Start: 06-02-2022 Hospital admission [facility] Start: 06-02-2022 Referral to neurologist [facility] Bacteria identified in Urine by Culture Urine culture Microbiology Routine Missed menses Ordered: 05/20/2024 [facility] Comment on above: Ordered: 05/20/2024 CBC W Auto Different ial panel - Blood CBC and differential Lab Routine Missed menses , unspecified gestational age Ordered: 05/20/2024 [facility] Comment on above: Ordered: 05/20/2024 Hemoglobin A1c/Hemoglobin.total in Blood Hemoglobin A1c Lab Routine Missed menses , unspecified gestational age Ordered: 05/20/2024 [facility] Comment on above: Ordered: 05/20/2024 Hepatitis B virus surface Ag [Presence] in Serum or Plasma by Immunoassay Hepatitis B surface antigen Lab Routine Missed menses , unspecified gestational age Ordered: 05/20/2024 [facility] Comment on above: Ordered: 05/20/2024 Hepatitis C virus Ab [Presence] in Serum or Plasma by Immunoassay Hepatitis C antibody Lab Routine Missed menses , unspecified gestational age Ordered: 05/20/2024 [facility] Comment on above: Ordered: 05/20/2024 HIV-1/HIV-2 antigen/antibody combination immunoassay HIV-1 and HIV-2 antibodies Lab Routine Missed menses , unspecified gestational age Ordered: 05/20/2024 [facility] Comment on above: Ordered: 05/20/2024 IgG [Mass/volume] in Serum or Plasma [facility] Patient Education [facility] Work Phone: Patient referral [facility] Work Phone: Protein fractions.oligoclonal bands.intrathecal [Presence] in Serum and CSF [facility] Reagin Ab [Presence] in Serum by RPR RPR Lab Routine Missed menses , unspecified gestational age Ordered: 05/20/2024 [facility] Comment on above: Ordered: 05/20/2024 Rubella antibody, IgG Rubella an tibody, IgG Lab Routine Missed menses , unspecified gestational age Ordered: 05/20/2024 [facility] Comment on above: Ordered: 05/20/2024 URINARY TRACT INFECT ION (HTRX) URINARY TRACT INFECTION (HTRX) Lab Routine Dysuria Ordered: 04/08/2024 [facility] Work Phone: Comment on above: Ordered: 04/08/2024 Payers Date Payer Category Payer Self-pay [id number] 2023 Medicaid [id number] 2022 Medicaid [id number] 2003 Unknown [id number] 2.16.84 [id number] 2003 Unknown [id number] 2.16.8 40.1.201629.3.579.2.727 2003 Unknown [id number] 2.16.84 0.1.021346.3.579.2.1259 2003 Unknown [id number] 2.16.84 0.1.091348.3.579.2.1259 2003 Unknown [id number] 2.16.84 0.1.112935.3.579.2.1259 2003 Unknown [id number] 2.16.84 0.1.938718.3.579.2.1259 2003 Unknown [id number] 2.16.84 0.1.168504.3.579.2.1259 2003 Unknown [id number] 2.16.84 0.1.849237.3.579.2.1259 2003 Unknown [id number] 2.16.84 0.1.828372.3.579.2.1259 2003 Unknown [id number] 2.16.84 0.1.689381.3.579.2.1259 Unknown [id number] 2.1 [id number] Unknown [id number] 2.16.8 [id number] Social History Date Type Detail Facility Start: 02-11-2024 End: 04-08-2024 Sex Assigned At [facility] [employer] Other Start: 07-01-2020 End: 12-22-2022 Tobacco smoking status Never smoked tobacco (finding) [facility] Tobacco smoking status Never [facility] Start: 2003 Sex Assigned At Female [facility] Start: 12-22-2022 Tobacco use and exposure Smokeless [...] orientation Heterosexual (finding) [facility] Start: 03-18-2024 [facility] Functional Status Date Assessment Result Facility 10-28-2023 Functional Status N/A [facility] 06-15-2022 Functional Status N/A [facility] 06-09-2022 Functional status Patient at Baseline [facility] Work Phone: 05-24-2022 Functional Status N/A [facility] Mental Status Date Assessment Result Facility 06-09-2022 Cognitive function Cognitive Sta tus Patient at Baseline [facility] Work Phone: Clinical Notes 09-13-2021 to 06-17-2024 Su Emery LPN - 06/17/2024 11:10 AM Sandy Rios MA - 05/20/2024 10:00 AM Gary Emery LPN - 04/15/2024 10:20 AM Asif Irvin DO - 04/08/2024 6:25 PM ESTPatient Instructions Note Date & Type Note Facility 06-17-2024 History of Presen t illness Narrative Reason for Appointment: Patient ID: Heena Wang is a 19 y.o. female who presents for Routine Visit Patient presents today for Return OB appointment. MEDICATIONS Current Outpatient Medications Medication Instructions azaTHIOprine (Imuran) 100 MG tablet TAKE 1/2 (ONE-HALF) OF A TABLET BY MOUTH EVERY MORNING, and ONE TABLET AT BEDTIME, titrate up DIRECTED Diagnosis Unavailable escitalopram (Lexapro) 20 MG tablet Every 24 hours metoclopramide (REGLAN) 10 mg, Oral, 3 times daily before meals, Take 1 tablet by mouth 30 minutes prior to meals 3 times daily as needed for nausea. ondansetron ODT (ZOFRAN-ODT) 4 mg, Oral, Every 8 hours PRN promethazine (PHENERGAN) 12.5 mg, Oral, Every 6 hours PRN, Take 1 tablet by mouth every 6 hours as needed for nausea. promethazine (PHENERGAN) 12.5 mg, Oral, Every 6 hours PRN, Take 1 tablet by mouth every 6 hours as needed for nausea. valACYclovir (VALTREX) 500 mg, Oral, Daily ALLERGIES [...] Grandfather Stepan Wang Cancer Paternal Grandmother Izzy Brock SURGICAL HISTORY Past Surgical History: Procedure Laterality Date INNER EAR SURGERY 2005 tubes in ears KNEE CARTILAGE SURGERY Right 02/01/2024 Arthroscopy w/ MTP @ [facility] OTHER SURGICAL HISTORY 2004 adnoidectomy REVIEW OF [...] nursing note reviewed. Exam conducted with a upper stitcher present. Vitals: Estimated body mass index is 24.39 kg/m as calculated from the following: Height as of 02/11/24: 5' 10 . Weight as of this encounter: 170 lb. BP: 116/62 No LMP recorded. Patient is . ASSESSMENT & PLAN ICD-10-CM 1. Second trimester Z34.92 POCT urinalysis dipstick manually resulted 2. 15 weeks gestation of Z3A.15 New OB: Patient presents today for 1st time obstetrics appointment with provider. Patient is currently 15w0d . Patients history has been reviewed in great detail including any potential risks. Patient stated she currently has no complaints. Expectations throughout regarding labs, ultrasounds, and appointments have been discussed with the patient in detail. It was reiterated that the patient is to drink 6-8 glasses of water a day, eat 6 small meals a day, do not consume raw or undercooked meat, and stay away from [facility]. Patient has been consulted regarding any further do's and don'ts of . Patient voiced understanding and all questions and concerns were answered. Orders Placed This Encounter Procedures POCT urinalysis dipstick manually resulted Follow Up: Patient is to return in 4 weeks for routine OB appointment. Documented by Su Emery LPN on behalf of: Benji Leung DO documented in this encounter [facility] 05-20-2024 History of Presen t illness Narrative [...] SURGERY Right 02/01/2024 [facility] OTHER SURGICAL HISTORY 2005 adnoidectomy No Known Allergies Vitals: Estimated body [...] or undercooked meat, and stay away from [facility]. Patient has also been advised to [...] Georgie Rios MA documented in this encounter [facility] 04-15-2024 History of Presen t illness [...] SURGERY Right 02/01/2024 Arthroscopy w/ MTP @ [facility] OTHER SURGICAL HISTORY 2004 adnoidectomy REVIEW OF [...] nursing note reviewed. Exam conducted with a upper stitcher present. Vitals: Estimated body mass index is [...] Benji Leung DO documented in this encounter [facility] 04-08-2024 History of Presen t illness Narrative Images from the original note were not included. [address] , [address] [facility], [address] P: [phone] F: [phone] HPI Historian of HPI: patient Heena Wang [...] capsule; Refill: 0 documented in this encounter [facility] 02-11-2024 History of Presen t illness [...] use for discomfort. documented in this encounter [facility] 02-11-2024 Instructions DANNI Judd - 02/11/2024 [...] use for discomfort. documented in this encounter [facility] 10-28-2023 Hospital Discharg e instructions Patient [...] sitting or lying down. General instructions Take zcqw-omo-cqchxpa and prescription medicines only as told by [...] provider. Document Revised: 08/14/2022 Document Reviewed: 03/26/2020 [employer] Patient Education 2022 [employer] 10/28/2023 12:35:22 How to Use a [...] provider. Document Revised: 02/10/2022 Document Reviewed: 02/10/2022 [employer] Patient Education 2022 [employer] 10/28/2023 12:35:22 Radial Nerve Palsy Radial Nerve [...] provider. Document Revised: 06/29/2021 Document Reviewed: 06/29/2021 [employer] Patient Education 2022 [employer] 10/28/2023 12:35:22 Crutch Use, Adult, Rznd-vi-Hntr Crutch Use, Adult Crutches are used to [...] you. Keep your weight over the hand president and chief commercial officer. 3.Bring the good leg forward to meet the crutches or to land a little bit ahead of them. 4.Repeat. Going up steps If there is no handrail: 1.Walk up to steps and put weight on hand president and chief commercial officer to step up. 2.Step up with your [...] provider. Document Revised: 11/26/2019 Document Reviewed: 11/26/2019 [employer] Patient Education 2022 [employer] Follow Up Care 10/28/2023 11:08:54 With:Rayne Rivera Address: [address] [place] [address]- Business (1) When:10/31/2023 12:11:58 With:OMRRO HAUSER Address: [address] [place] [phone]- [phone] Business (1) When:Within 3 Day(s) [facility] 03-02-2023 Evaluation note Encounter Date Diagnosis [...] 3 days. May return to work tomorrow [employer] Other 01-26-2023 Hospital Discharge instructions Patient Education 06/15/2022 09:22:12 Acute Urinary Retention, Female, Hhql-ys-Hueo Acute Urinary Retention, Female Acute urinary retention means that you cannot pee (urinate) at all, or that you pee too little and your bladder is not emptied completely. If it is not treated, it can lead to kidney damage or other serious problems. Follow these instructions at home: Take nslx-ess-mbpuphi and prescription medicines only as told by [...] 10/23/2008 Document Revised: 04/19/2018 Document Reviewed: 06/08/2017 [employer] Patient Education 2020 [employer] Follow Up Care 06/07/2022 11:50:23 With:Jason COELHO, VALDEMAR Xavier, URO Address: When: Unknown [facility] 01-25-2023 Evaluation note* Encounter Date Diagnosis Assessment [...] of care between Inpatient setting and outpatient DIRECTOR LIFE SCIENCES office. Mother confirms that she did schedule [...] that were not corrected during review process. [place] Other 01-20-2023 Progress note Author Kt Pearson [facility] June 09, 2022 3:41pm Note Date/Time June 09, 2022 3 :42pm [facility] [address] [place] [address] Neurology Progress Note Signed Patient: Heena Wang MR#: [id number] : 2005 Acct:[id number] Age/Sex: 17 / F Adm Date: 3 Loc: Room: [address] [place] [address] Type: ADM IN Attending Dr: Melo Diana [...] she went to get checked out at [facility].? She was also experiencing tingling paresthesias that [...] <Electronically signed by Kt Pearson DO> 06/09/22 4248 [facility] Work Phone: 1(733) 400-753501-19-2023 Progress note Author Kt Pearson [facility] June 08, 2022 3:35pm Note Date/Time June 08, 2022 7 :41am [facility] [address] [place] [address] Neurology Progress Note Signed Patient: Heena Wang MR#: [id number] : 2005 Acct:[id number] Age/Sex: 17 / F Adm Date: 3 Loc: 3T Room: [address] [place] [address] Type: ADM IN Attending Dr: Melo Diana [...] level noted with pinprick CEREBELLAR EXAM: * Pxkkay-wi-lper and alternating movements are intact and normal in bilateral upper extremities * Cudy-ex-innb and alternating movements are intact and normal [...] she went to get checked out at [facility].? She was also experiencing tingling paresthesias that [...] (for a total a 2g/kg). Documented By: tK Pearson DO 06/08/22 0738 Signed By: <Electronically signed by Kt Pearson DO> 06/08/22 1535 <Electronically signed by RHIANNON Avery> 06/08/22 1116 [facility] Work Phone: 1(180) 494-776301-19-2023 Progress note Author Melo Diana [facility] June 08, 2022 10:23am Note Date/Time June 08, 2022 1 0:11am [facility] [address] [place] [address] Hospitalist Progress Note Signed Patient: Heena Wang MR#: [id number] : 2005 Acct:[id number] Age/Sex: 17 / F Adm Date: 3 Loc: Room: [address] [place] [address] Type: ADM IN Attending Dr: Melo Diana [...] 18:05 06/06/22 18:10 Bisacodyl 10 Mg Supp.Rect [place] 06/06/23 18:04 10 mg DAILY PRN Administration [...] Rodas catheter placement, and 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 Paresthesias have improved more significantly today. Suspect an autoimmune or demyelinating process given findings on MRI brain in cervical and thoracic spine. Unclear how much patient's neurologic complaints are related to this Herpes CLINICAL TRIAL EDUCATOR infection. Lumbar puncture results: Lymphocytic pleocytosis, +HSV2 [...] than 0.2, Zamora IgG less than 0.2, REBAR BENDER 0.2, scleroderma 0.2, Anti-MOG pending. -CSF albumin, [...] signed by Melo Diana MD> 06/08/22 1023 [facility] Work Phone: 1(413) 127-964901-19-2023 Progress note Author Melo Diana [facility] June 07, 2022 10:30pm Note Date/Time June 07, 2022 9 :03am [facility] [address] [place] [address] Hospitalist Progress Note Signed Patient: Heena Wang MR#: [id number] : 2005 Acct:[id number] Age/Sex: 17 / F Adm Date: 3 Loc: 3T Room: [address] [place] [address] Type: ADM IN Attending Dr: Melo Diana [...] 18:05 06/06/22 18:10 Bisacodyl 10 Mg Supp.Rect [place] 06/06/23 18:04 10 mg DAILY PRN Administration [...] Rodas catheter placement, and 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 Paresthesias have mildly improved, have moved down from the region of her umbilicus down to her ankle and foot region. Unclear how much patient's neurologic complaints are related to this Herpes CLINICAL TRIAL EDUCATOR infection. Lumbar puncture results: Clear, colorless fluid [...] than 0.2, Zamora IgG less than 0.2, REBAR BENDER 0.2, scleroderma 0.2, Anti-MOG pending. -CSF albumin, [...] above. Documented By: Melo Diana MD 3 [id number] Signed By: <Electronically signed by Melo Diana MD> 06/07/22 9732 [facility] Work Phone: 1(557) 529-138701-18-2023 Progress note Author Kt Pearson [facility] June 07, 2022 3:13pm Note Date/Time June 07, 2022 7 :38am [facility] [address] [place] [address] Neurology Progress Note Signed Patient: Heena Wang MR#: [id number] : 2005 Acct:[id number] Age/Sex: 17 / F Adm Date: 3 Loc: 3T Room: [address] [place] [address] Type: ADM IN Attending Dr: Melo Diana [...] level noted with pinprick CEREBELLAR EXAM: * Fbejcy-jo-vhup and alternating movements are intact and normal in bilateral upper extremities * Xnpp-ms-jsqu and alternating movements are intact and normal [...] she went to get checked out at [facility].? She was also experiencing tingling paresthesias that [...] 1513 <Electronically signed by RHIANNON Avery> 06/07/22 1205 [facility] Work Phone: 1([phone]) 987-332401-17-2023 Progress note Author Melo Diana [facility] June 06, 2022 4:37pm Note Date/Time June 06, 2022 8 :26am [facility] [address] [place] [address] Hospitalist Progress Note Signed Patient: Heena Wang MR#: [id number] : 2005 Acct:[id number] Age/Sex: 17 / F Adm Date: 3 Loc: Room: [address] [place] [address] Type: ADM IN Attending Dr: Melo Diana [...] 500 Mg Tablet PO TID [facility] - Hospitalist Assessment/Plan (1) Herpes simplex [...] Bilateral Paresthesia of the Lower Extremities HSV CLINICAL TRIAL EDUCATOR 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 Unclear how much patient's neurologic complaints are related to this Herpes CLINICAL TRIAL EDUCATOR infection. Lumbar puncture results: Clear, colorless fluid [...] -Immunology for: LIZZY, SS?A/Ro, SS-B/La, Zamora IgG, REBAR BENDER, scleroderma pending -CSF albumin, oligoclonal IgG bands, [...] <Electronically signed by Melo Diana MD> 06/06/22 9629 [facility] Work Phone: [phone] 607-709501-17-2023 Progress note Author Kt Pearson [facility] June 06, 2022 3:31pm Note Date/Time June 06, 2022 7 :55am [facility] [address] [place] [address] Neurology Progress Note Signed Patient: Heena Wang MR#: [id number] : 2005 Acct:[id number] Age/Sex: 17 / F Adm Date: 3 Loc: Room: [address] [place] [address] Type: ADM IN Attending Dr: Melo Diana [...] level noted with pinprick CEREBELLAR EXAM: * Heacnc-tr-pyue and alternating movements are intact and normal in bilateral upper extremities * Aztm-bq-fgdb and alternating movements are intact and normal [...] she went to get checked out at [facility].? She was also experiencing tingling paresthesias that [...] <Electronically signed by RHIANNON Avery> 06/06/22 0943 [facility] Work Phone: 1(893) 886-232701-17-2023 Consult note Author Rayne Vitale [facility] June 06, 2022 10:21am Note Date/Time June 06, 2022 1 0:09am [facility] [address] [place] [address] Infect. Disease Consult Note Signed Patient: Heena Wang MR#: [id number] : 2005 Acct:[id number] Age/Sex: 17 / F Adm Date: 3 Loc: Room: [address] [place] [address] Type: ADM IN Attending Dr: Melo Diana [...] period of time. [facility] Flag[facility] and [...] negative unless noted below or in HPI [facility] Attestation Statement: The following information was [...] Capsule) 100 mg PO BID [facility] Stop: 06/04/23 20:59 Last Admin: 06/06/22 08:46 [...] Powd.Pack) 17 gm PO DAILY [facility] Stop: 06/04/23 19:44 Last Admin: 06/06/22 08:46 Dose: 17 gm Valacyclovir HCl (Valacyclovir 500 Mg Tablet) 1,000 mg PO TID [facility] Last Admin: 06/06/22 08:46 Dose: 1,000 mg [...] <Electronically signed by MD Rayne Vitale> 06/06/22 1022 [facility] Work Phone: 1([phone]) 781-139401-16-2023 Progress note Author Melo Diana [facility] June 05, 2022 5:58pm Note Date/Time June 05, 2022 9 :00am [facility] [address] [place] [address] Hospitalist Progress Note Signed Patient: Heena Wang MR#: [id number] : 2005 Acct:[id number] Age/Sex: 17 / F Adm Date: 3 Loc: 3T Room: [address] [place] [address] Type: ADM IN Attending Dr: Melo Diana [...] -Immunology for: LIZZY, SS?A/Ro, SS-B/La, Zamora IgG, REBAR BENDER, scleroderma pending -Lumbar puncture results pending. Discussed [...] took multiple nursing attempts to replace the Rodsa catheter. -At this time Rodas catheter is [...] above. Documented By: Melo Diana MD 3 [id number] Signed By: <Electronically signed by Melo Diana MD> 06/05/22 1324 [facility] Work Phone: 1(495) 620-103301-16-2023 Progress note Author Kt Pearson [facility] June 05, 2022 5:19pm Note Date/Time June 05, 2022 9 :08am [facility] [address] [place] [address] Neurology Progress Note Signed Patient: Heena Wang MR#: [id number] : 2005 Acct:[id number] Age/Sex: 17 / F Adm Date: 3 Loc: 3T Room: [address] [place] [address] Type: ADM IN Attending Dr: Melo Diana [...] level noted with pinprick CEREBELLAR EXAM: * Brhqje-ip-czhg and alternating movements are intact and normal in bilateral upper extremities * Rkkj-cb-impm and alternating movements are intact and normal [...] she went to get checked out at [facility].? She was also experiencing tingling paresthesias that [...] <Electronically signed by RHIANNON Avery> 06/05/22 1044 [facility] Work Phone: 1([phone]) 351-420401-16-2023 [facility] Progress note Author Ravi Zhang [facility] June 04, 2022 6:44pm Note Date/Time June 04, 2022 1 0:01am [facility] [address] [place] [address] Hospitalist Progress Note Signed Patient: Heena Wang MR#: [id number] : 2005 Acct:[id number] Age/Sex: 17 / F Adm Date: 3 Loc: Room: [address] [place] [address] Type: ADM IN Attending Dr: Ravi Zhang [...] <Electronically signed by Ravi Zhang DO> 06/04/22 1844 [facility] Work Phone: 1(711) 517-775701-15-2023 Consult note Author Isaías Pan [facility] June 04, 2022 2:39pm Note Date/Time June 04, 2022 2 :19pm [facility] [address] [place] [address] DIRECTOR LIFE SCIENCES Consult Note Signed Patient: Heena Wang MR#: [id number] : 2005 Acct:[id number] Age/Sex: 17 / F Adm Date: 3 Loc: Room: [address] [place] [address] Type: ADM IN Attending Dr: Ravi Zhang [...] Mg Tablet) 1,000 mg PO BID WILLIAM IGNITION MECHANIC - Exam Physical Exam Vital signs: Temp [...] lymph nodes. Lower extremities showed no edema. IGNITION MECHANIC - Results Laboratory Results - Last 48 [...] % (Auto) 45.7, Lymph % (Auto) 42.0, [place] % (Auto) 9.4, Eos % (Auto) 0.9, Baso % (Auto) 2.0, Nucleat RBC Rel Count 0.3, Neut # (Auto) 3.1, Lymph # (Auto) 2.9, [place] # (Auto) 0.6, Eos # (Auto) 0.1, Baso # (Auto) 0.1, ESR 26 H Microbiology - Results from entire visit 06/04/22 12:05 Vaginal Fungal Smear - Final 06/04/22 12:05 Vaginal Trichomonas Wet [place] - Final IGNITION MECHANIC - A/P (1) Acute urinary retention: Code(s): R33.8 - Other retention of urine Status: Acute (2) Primary vulvovaginal herpes simplex infection: Plan: Vulvar lesions have been cultured and GC, chlamydia and a wet prep were obtained. I have initiated Valtrex 1000 mg twice daily for the next 7 to 10 days. We discussed with Naik my suspicion that this is a primary [...] <Electronically signed by Isaías Pan DO> 06/04/22 6724 [facility] Work Phone: 1([phone] 610-970801-15-2023 Consult note Author Iman Gomez [facility] June 04, 2022 1:38pm Note Date/Time June 04, 2022 1 1:04am [facility] [address] [place] [address] Urology Consult Note Signed Patient: Heena Wang MR#: [id number] : 2005 Acct:[id number] Age/Sex: 17 / F Adm Date: 3 Loc: Room: [address] [place] [address] Type: ADM IN Attending Dr: Ravi Zhang DO Copies to: WINNIE Thomas MD Kristopher L Lindbloom, DO~ History of Present Illness Consult Details Consult Date: 06/04/2022 Reason for Urology Consult: Urinary retention Requesting Provider: Ravi Zhang DO HPI: 17 year old healthy female transferred from outside hospital to [facility] on 06/02/2022 with acute urinary retention and [...] has not beendiagnosed with PCOS, no prior IGNITION MECHANIC evaluation. Has appointment this week. Her paresthesias [...] % (Auto) 45.7, Lymph % (Auto) 42.0, [place] % (Auto) 9.4, Eos % (Auto) 0.9, Baso % (Auto) 2.0, Nucleat RBC Rel Count 0.3, Neut # (Auto) 3.1, Lymph # (Auto) 2.9, [place] # (Auto) 0.6, Eos # (Auto) 0.1, [...] Neurologic evaluation negative. Patient was down with DIRECTOR LIFE SCIENCES getting examined due to swollen and painful [...] <Electronically signed by Iman Gomez MD> 06/04/22 5717 [facility] Work Phone: 1([phone]) 650-821601-15-2023 Progress note Author Kt Pearson [facility] June 04, 2022 11:43am Note Date/Time June 04, 2022 1 1:43am [facility] [address] [place], [place] [address] Neurology Progress Note Signed Patient: Heena Wang MR#: [id number] : 2005 Acct:[id number] Age/Sex: 17 / F Adm Date: 3 Loc: Room: [address] [place] [address] Type: ADM IN Attending Dr: Ravi Zhang [...] some additional lab work (LIZZY, HERNESTO antibodies, SUISE). I am hoping to fully review herneuroimaging with Dr. Mae. Code(s): R33.8 - Other retention of urine Status: Acute (2) Paresthesia of both lower extremities: Code(s): R20.2 - Paresthesia of skin Status: Acute Documented By: Kt Pearson DO 06/04/22 1132 Signed By: <Electronically signed by Kt Pearson DO> 06/04/22 1149 [facility] Work Phone: 1(603) 703-992701-14-2023 Progress note Author Ravi Zhang [facility] June 03, 2022 6:07pm Note Date/Time June 03, 2022 6 :07pm [facility] [address] [place] [address] Hospitalist Progress Note Signed Patient: Heena Wang MR#: [id number] : 2005 Acct:[id number] Age/Sex: 17 / F Adm Date: 3 Loc: Room: [address] [place] [address] Type: ADM IN Attending Dr: Ravi Zhang [...] <Electronically signed by Ravi Zhang DO> 06/03/221806 [facility] Work Phone: 1(493) 771-517001-14-2023 Consult note Author Kt Pearson [facility] June 03, 2022 12:02pm Note Date/Time June 03, 2022 1 0:02am [facility] [address] [place] [address] Neurology Consult Note Signed Patient: Heena Wang MR#: [id number] : 2005 Acct:[id number] Age/Sex: 17 / F Adm Date: 3 Loc: Room: [address] [place] [address] Type: ADM IN Attending Dr: Ravi Zhang DO Copies to: DO Morro Lopez APRN Kristopher L Lindbloom, DO~ HPI Consult Date: 06/03/22 Hat Body Inspector: Kt Pearson DO [facility] Vaccinated for COVID-19?: Yes Social History Smoking [...] woman with history of scoliosis. Works at [employer]. After not being able to urinate for 8+ hours she went to get checked out at [facility]. She was also experiencing tingling paresthesias that [...] of skin Status: Acute Documented By: Kt Pearosn DO 06/03/22 0956 Signed By: <Electronically signed by Kt Pearson DO> 06/03/22 1204 [facility] Work Phone: 1(938) 567-184801-13-2023 History and physical note Author Ravi Zhang [facility] June 02, 2022 9:44pm Note Date/Time June 02, 2022 9 :44pm [facility] [address] [place] [address] Hospitalist H&P Signed Patient: Heena Wang MR#: [id number] : 2005 Acct:[id number] Age/Sex: 17 / F Adm Date: 3 Loc: Room: [address] [place] [address] Type: ADM IN Attending Dr: Ravi Zhang DO Copies to: WINNIE Thomas, ~ HPI DATE OF EXAMINATION: 06/02/22 CHIEF [...] except as mentioned elsewhere in the documentation. [facility] Attestation Statement: The following information was [...] and equal bilaterally. Lower extremities: She describes [id number] type paresthesias all the way from the [...] By: <Electronically signed by Ravi Zhang DO> 06/02/222 [facility] Work Phone: 1(114) 775-613901-04-2023 Hospital Discharge instructions Follow Up Care 05/24/2022 14:39:56 With:MORRO HAUSER CNP Address: [address] [place] [address]- When: Unknown [facility] 01-01-2023 History general Narrative [...] ingitis, urinary retention 06/02 - 06/09 2022 [place] Other 01-01-2023 History general Narrative - Reported* [...] History [facility] catheter placement 023 Hospitalization History [facility]al men ingitis, urinary retention 06/02 - 06/09 2022 [place] Other 08-18-2022 Evaluation note* Encounter Date Diagnosis [...] that were not corrected during review process. [facility] Other 07-07-2022 Evaluation note* Encounter Date Diagnosis Assessment Notes Treatment Notes Treatment Clinical Notes Nov, Exposure to COVID-19 virus (ICD-10 - Z20.822) [facility] Other 07-05-2022 Evaluation note* Encounter Date Diagnosis [...] continue medication, discontinuing medication or follow-up with [employer].I did explain that there are other underlying pathologies that can cause painful cramping. This work-up and diagnosis would need to be done by [employer] especially due to her age.Patient verbalizes understanding and will let me know if she would like to continue the control or not. Nov, Other *Progress note was completed with the assistance of voice recognition software for dictation purposes. Please excuse any grammatical errors that were not corrected during review process. [facility] Other 04-26-2022 Evaluation note* Encounter Date Diagnosis [...] cancer, but decreased risk for ovarian/uterine cancers, halfway. Can call in 3 months for refills if desired. [place] Other Evaluation + Plan note No data available for this section 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 Metronidazole adverse reaction acute Paresthesia of both lower extremities acute Primary vulvovaginal herpes simplex infection acute Vaginal discharge acute Vulvar ulceration acute [facility] Work Phone: Evaluation noteNo InformationNort O[place] Other Evaluation noteNo assessment information available [facility] Work Phone: Evaluation note* Diagnosis Dysuria- Primary Acute cystitis without hematuria documented in this encounter [facility]* Diagnosis Encounter for surveillance of other contraceptive documented in this encounter [facility] Healthcare[facility]* Diagnosis Status post arthroscopy of right knee- Primary Other postprocedural status documented in this encounter [facility] HealthcareEvaluation note* Diagnosis Missed menses 11 weeks gestation of , unspecified gestational age Encounter for supervision of normal first in first trimester documented in this encounter [facility] note* Diagnosis Second trimester state, incidental 15 weeks gestation of documented in this encounter [facility] Narrative - Reported* Type Description Date Medical History scoliosis Surgical History tubes in ears twice 2004 Surgical History adenoidectomy 2004 [place] Other History general Narrative - Reported* Type Description Date Medical History scoliosis Medical History seasonal allergies Surgical History tubes in ears twice 2004 Surgical History adenoidectomy 2004 [place] Other Hospital Discharge instructions No data available [facility] this section [facility] Additional Instructions Maintain and routine care to rodas. Maintain rodas until you see Dr. Gomez and she gives you further orders.[facility] Work Phone: Progress note No data available for this section [facility] Chief Complaint and Reason for Visit [...] Referral Reason 07/26/22 @ 1:30pm NICOLE TRUJILLO [facility] SPECIFICALLY ; PATIENT'S MOTHER CLEARED WITH PROVIDER HERSELF PLEASE CONTACT MOTHER KEELY AT [phone] TO SCHEDULE Diagnosis 1 Anxiety (F41.9) Referral Organization [facility] Referring Provider First Name Morro Referring Provider Last Name Talon Referring Provider Specialty Nurse Pract itioner Referred Organization [facility] Referred Address [address] [place], [place],[address] Referred Provider Specialty Psychiatry Referral Priority Routine Referral Appointment Date 2022-07-26 General Notes Tricia Borjas Jazzy 023 02:12:31 PM >Received today and fax referral. [facility] Referral Dept will call patient and schedule Tricia Borjas 06/21/2022 09:26:23 AM >Fax letter for appt update Tricia Borjas 06/27/2022 08:10:07 AM >Received letter back with appt Additional Source Comments REASON FOR VISIT (unrecogniz ed section and content) Reason Comments Post-op Rt knee scope MTP TS [facility] 02/01/24 Reason Comments Amenorrhea Reason Comments Routine Visit Patient Care team informatio n (unrecognized section and content) Team Status: Inactive Member Role Status Dates Ravi Zhang , DO Admit Provider Active Morro Hauser APRN Primary Care Provider Active Kt Pearson , Other Provider Active Isaías Pan , DO Other Provider Active Iman Gomez MD Other Provider Active Melo Diana MD Attending Provider Active Rayne Vitale MD Other Provider Active Team Status: Active Member Role Status Dates Morro Hauser APRN Primary Care Provider Active Team Status: Inactive Member Role Status Dates Morro Hauser APRN Primary Care Provider Active Samra Greenberg APRN Emergency Provider Active Habilitative Interventionist Relationship Specialty Start Date End Date Morro Hauser MD [address] [place] [address] Primary Care Provider Family Medicine 01/11/23 Habilitative Interventionist Relationship Specialty Start Date End Date Morro Hauser MD [address] [place] [address] [place] [address] Primary Care Provider Family Medicine 01/11/23 Habilitative Interventionist Relationship Specialty Start Date End Date Morro Hauser MD [address] [place] [address] [place] [address] Primary Care Provider Family Medicine 01/11/23 Habilitative Interventionist Relationship Specialty Start Date End Date Morro Hauser MD [address] [place] [address] [place] [address] Primary Care Provider Family Medicine 01/11/23 Habilitative Interventionist Relationship Specialty Start Date End Date Morro Hauser MD [address] [place] [address] [place] [address] Primary Care Provider Family Medicine 01/11/23 Habilitative Interventionist Relationship Specialty Start Date End Date Morro Hauser MD [address] [place] [address] [place] [address] Primary Care Provider Family Medicine 01/11/23 Goals (unrecognized section and content) Goals may be documented in a n alternate section INFORMATION SOURCE (unrecogn ized section and content) DATE CREATED AUTHOR 07/08/2022 [facility] DATE CREATED AUTHOR AUTHOR'S ORGANIZ ATION 11/22/2023 [facility] DATE CREATED AUTHOR AUTHOR'S ORGANIZ ATION 05/18/2024 [facility] DATE CREATED AUTHOR AUTHOR'S ORGANIZ ATION 06/18/2024 [facility] FOR RECORDS PERTAINING TO PATIENTS WHO ARE [...] BE BASED ON THE PRIMARY CLINICAL RECORDS. [facility] [employer] provides no warranty or guarantee of the accuracy or completeness of information in this document.
[2024-07-18 22:10] LABS: Age Gdln ACOG Testing Note (.); IGP, rfx Aptima HPV ASCU Note (.)
== END 2024-07-16 14:33 | disposition home or self-care (01) ==
LOC: LAB 14:32
PROVIDERS: PCP Nurse Practitioner Family; Visit Provider Physician Assistant
DX: Z01.419 Encounter for gynecological examination (general) (routine) without abnormal findings (principal)
CPT/HCPCS: 88175

== ENCOUNTER 2024-07-23 07:03 | Outpatient (OUT) | payer MEDICAID, SELFPAY ==
--- NOTE | 2024-07-23 | US_ITS ---
The [address] [address] Patient Name: HEENA WANG MRN: [id number] date: 2005 Sex: F Assigned Patient Location: US Current Patient Location: LAB Accession/Order Number: [id number] Exam Date: 07/23/2024 16:03 Report Date: 07/23/2024 16:13 At the request of: KACEY ANDRADE Procedure: US OB cervical length Anatomy scan. Cervical length ultrasounds. Reason for exam: Anatomy scan. TECHNIQUE: Transabdominal imaging of the gravid uterus was obtained. FINDINGS: Single live intrauterine measuring 20 weeks 2 days by anatomic measurements is present with a heart rate 154 bpm. Appropriate growth for dating. ISHA is subjectively normal. position is breech with lie longitudinal. Spine was not imaged due to positioning. Outflow tracts are suboptimal. Four-chamber heart is noted. No ventriculomegaly. Brain structures appear grossly unremarkable. Kidneys appear unremarkable. Three-vessel cord is noted. All 4 extremities are seen. Nasal bone is present. The placenta is posterior in location with its tip approximately 6 mm from the internal os. Cervical length is normal at 3.9 cm without funneling. US/US OB anatomy IMPRESSION: Incomplete survey with spine not imaged and outflow tracts suboptimally visualized. Limited ultrasound for completion of the anatomic survey in one to 2 weeks is suggested. Placenta is posterior in location with tip approximately 6 mm from the internal os. Attention on follow-up ultrasound is suggested. Cervical length measuring 3.9 cm without funneling. Impression dictated by: Ranulfo You Jr. DChatoOChato07/23/2024 4:13 PM Dictation Location: [employer] Electronically authenticated by: [id number] Y Date: 07/23/2024 16:13
--- NOTE | 2024-07-23 | US_ITS ---
The [address] [address] Patient Name: HEENA WANG MRN: [id number] date: 2005 Sex: F Assigned Patient Location: US Current Patient Location: LAB Accession/Order Number: [id number] Exam Date: 07/23/2024 16:03 Report Date: 07/23/2024 16:13 At the request of: KACEY ANDRADE Procedure: US OB cervical length Anatomy scan. Cervical length ultrasounds. Reason for exam: Anatomy scan. TECHNIQUE: Transabdominal imaging of the gravid uterus was obtained. FINDINGS: Single live intrauterine measuring 20 weeks 2 days by anatomic measurements is present with a heart rate 154 bpm. Appropriate growth for dating. ISHA is subjectively normal. position is breech with lie longitudinal. Spine was not imaged due to positioning. Outflow tracts are suboptimal. Four-chamber heart is noted. No ventriculomegaly. Brain structures appear grossly unremarkable. Kidneys appear unremarkable. Three-vessel cord is noted. All 4 extremities are seen. Nasal bone is present. The placenta is posterior in location with its tip approximately 6 mm from the internal os. Cervical length is normal at 3.9 cm without funneling. US/US OB cervical length IMPRESSION: Incomplete survey with spine not imaged and outflow tracts suboptimally visualized. Limited ultrasound for completion of the anatomic survey in one to 2 weeks is suggested. Placenta is posterior in location with tip approximately 6 mm from the internal os. Attention on follow-up ultrasound is suggested. Cervical length measuring 3.9 cm without funneling. Impression dictated by: Ranulfo You Jr., D.O.07/23/2024 4:13 PM Dictation Location: [employer] Electronically authenticated by: [id number] Y Date: 07/23/2024 16:13
--- OUTSIDE RECORDS SUMMARY | 2024-07-23 07:05 | XMS_ITS | CCD ---
Author Organization [facility] Care Team Providers Care Intermodal Dispatcher Name Role Phone Morro Hauser Unavailable MORRO [...] Mendoza Admitting Unavailable BENJI LEUNG Attending Unavailable SUSAN MONTANO Attending Unavailable SAMPSON AYALA Referring Unavailable SAMPSON [...] Twice a day as needed Active azaTHIOprine (19 sources) Purine Antimetabolite Start: 01-07-2023 Azathioprine Active MG TABLET January 07, 2023 12:00am take 0.5 tablet by m outh once daily in the morning, then take 1 tablet by mouth at bedtime azaTHIOprine (Imuran) 100 MG tablet TAKE 1/2 (ONE-HALF) OF A TABLET BY MOUTH EVERY MORNING, and ONE TABLET AT BEDTIME, titrate up DIRECTED Diagnosis Unavailable Active escitalopram 20 mg oral tablet (20 sources) Serotonin Reuptake Inhibitor Start: 01-07-2023 Escitalopram [...] Nov, Active metoclopramide 10 mg oral tablet (8 sources) Dopamine-2 Receptor Antagonist Start: 05-15-2024 End: [...] Active ondansetron 4 mg disintegrating oral tablet (10 sources) Serotonin-3 Receptor Antagonist Start: 06-23-2024 take [...] Active promethazine hydrochloride 12.5 mg oral tablet (20 sources) Phenothiazine Start: 04-23-2024 take 1 tablet [...] 11:16am take 2 tablets by [facility] every eight hours valACYclovir HCl 500 MG 2 tablets Orally three times a day Active Completed/Discontinued Medications Medication Drug Class(es) Dates Sig (Normalized) Sig (Original) acetaminophen 325 mg / HYDROcodone bitartrate 5 mg oral tablet (2 sources) Opioid Agonist Start: 01-28-2024 End: 02-11-2024 take 1-2 tablets by mouth every four hours for pain HYDROcodone-acetam inophen (Russell) 5-325 MG tablet Indications: Acute traumatic internal [...] June 09, 2022 3:36pm polyethylene glycol 3350 [id number] mg powder for oral solution (2 sources) [...] retention of urine] Onset: 06-15-2022 06-02-2022 Episodic Immunizations and screening for infectious disease (2 sources) Exposure to sexually transmissible disorder; Translations: [Contact with and (suspected) exposure to infections with a predominantly sexual mode of transmission] 07-16-2024 Episodic Inflammatory diseases of female pelvic organs [...] Onset: 05-24-2022 Episodic Other female genital disorders (4 sources) Vaginal discharge; Translations: [Other specified noninflammatory [...] 06-09-2022 Episodic Other and delivery including normal (6 sources) ; Translations: [Encounter for supervision of normal , unspecified, unspecified trimester] 05-20-2024 Episodic Other screening for suspected conditions (not mental disorders or infectious disease) (2 sources) Patient encounter status; Translations: [Encounter for other specified screening] 07-16-2024 Episodic Other upper respiratory infections (2 sources) [...] [15 weeks gestation of ] 06-17-2024 Episodic Residual codes; unclassified (2 sources) Gestation period, 19 weeks; Translations: [19 weeks gestation of ] 07-16-2024 Episodic Sprains and strains (2 sources) Sprain [...] Test Name Value Interpretation Reference Range Facility IGP,APTIMA HPV,AGE GDLNon AGE GDLN ACOG TESTING Note . [facility] Comment on above: TESTS RESULT FLAG UN ITS REF RANGE LAB Clinician Provided Cytology Information Source.............Cervix Other.............. No. of containers..01 ThinPrep Vial Age Algo ACOG Idania... FLAG LEGEND: L-Low Normal,H-High Normal,LL-Alert Low,HH-Alert High <-Panic Low,>-Panic High,A-Abnormal,AA-Critical Abnormal Performed at: 01 =G [facility] [place] [place] [address] [place] [address] Evelyn Aronld MD, IGP, RFX APTIMA HPV ASCU Note . [facility] Comment on above: TESTS RESULT FLAG UN ITS REF RANGE LAB DIAGNOSIS: 02 NEGATIVE FOR INTRAEPITHELIAL LESION OR MALIGNANCY. Specimen adequacy: 02 Satisfactory for evaluation. Endocervical and/or squamous metaplastic cells (endocervical component) are present. Performed by: 02 Corrine Espinosa, Hand Singer ([facility]) . 02 Note: Note 03 The Pap smear is a screening test designed to aid in the detection of premalignant and malignant conditions of the uterine cervix. It is not a diagnostic procedure and should not be used as the sole means of detecting cervical cancer. Both false-positive and false-negative reports do occur. Test Methodology: Note 03 This liquid based ThinPrep(R) pap test was screened with the use of an image guided system. . 02 The HPV DNA reflex criteria were not met with this specimen result therefore, no HPV testing was performed. FLAG LEGEND: L-Low Normal,H-High Normal,LL-Alert Low,HH-Alert High <-Panic Low,>-Panic High,A-Abnormal,AA-Critical Abnormal Performed at: 02 KWCYT [facility] [place] [facility] [address] [place] [id number] Shad East MD, [address] [phone] Evelyn Arnold MD, Performed at: = - [facility] [address] [id number] Fondant Machine Operator: Evelyn Arnold MD, Phone: [phone] Performed at: [facility] [address] [place], [place] [id number] Fondant Machine Operator: Shad East MD, Phone: [phone] [facility] RECURRENT VAGINITIS (HTRX)on 07-17-2024 ATOPOBIUM VAGINAE 0 [facility] ATOPOBIUM VAGINAE Not detected [facility] BV[facility] 2,3 (BACTERIAL VAGINOSIS ASSOCIATED BACTERIA 2, 3); MOBILUNCUS SPP 0 [facility] BVAB 2,3 (BACTERIAL VAGINOSIS ASSOCIATED BACTERIA 2, 3); MOBILUNCUS SPP Not detected [facility] ISSAC ALBICANS, PARAPSILOSIS, TROPICALIS 0 [facility] Healthcare ISSAC ALBICANS, PARAPSILOSIS, TROPICALIS Not detected [facility] ISSAC GLABRATA 0 [facility] ISSAC GLABRATA Not detected [facility] ISSAC KRUSEI 0 [facility] ISSAC KRUSEI Not detected [facility] CHLAMYDIA TRACHOMATIS 0 [facility] CHLAMYDIA TRACHOMATIS Not detected [facility] GARDNERELLA VAGINALIS 0 [facility] GARDNERELLA VAGINALIS Not detected N S [facility] Interpretation and review of laboratory results Abnormal [facility] Healthcare MEGASPHAERA (TYPES 1, 2) 28.119 Abnormal [facility] Healthcare MEGASPHAERA (TYPES 1, 2) Detected Abnormal [facility] MYCOPLASMA GENITALIUM 0 [facility] MYCOPLASMA GENITALIUM Not detected [facility] NEISSERIA GONORRHOEAE 0 [facility] NEISSERIA GONORRHOEAE Not detected [facility] TRICHOMONAS VAGINALIS 0 [facility] TRICHOMONAS VAGINALIS Not detected [facility] Healthcare Urinalysis macro (dipstick) panel (U)on 07-16-2024 Bilirubin, UA Negative Negative - 4(70) +++ mg/dL [facility] Blood, UA Negative Negative - 50 Timmy/mcL [facility] Clarity, UA Clear [facility] Color, UA Yellow [facility] Glucose, UA Negative Negative - 2000(110) ++++ mg/dL [facility] Interpretation and review of laboratory results Abnormal [facility] Ketones, UA Positive Negative - 160(16) ++++ mg/dL [facility] Leukocytes, UA Negative Negative - 500+++ Hilda/mcL [facility] Nitrite, UA Negative Negative - Positive [facility] pH, UA 6.5 5 - 9 [facility] Protein, UA Negative Negative - 2000(20) ++++ mg/dL [facility] Spec Grav, UA 1.02 1 - 1.03 [facility] Urobilinogen, UA 1.0 0.2 - 12 mg/dL [facility] Urinalysis macro (dipstick) panel (U)on 06-17-2024 Bilirubin, UA Negative Negative - 4(70) +++ mg/dL [facility] Blood, UA Negative Negative - 50 Timmy/mcL [facility] Clarity, UA Clear [facility] Color, UA Yellow [facility] Glucose, UA Negative Negative - 1999(110) ++++ mg/dL [facility] Interpretation and review of laboratory results Abnormal [facility] Ketones, UA Positive Negative - 160(16) ++++ mg/dL [facility] Comment on above: 15 Leukocytes, UA Trace Negative - 500+++ Hilda/mcL [facility] Nitrite, UA Negative Negative - Positive [facility] pH, UA 8.5 5 - 9 [facility] Protein, UA Positive Negative - 2000(20) ++++ mg/dL [facility] Comment on above: 30 Spec Grav, UA 1.02 1 - 1.03 [facility] Urobilinogen, UA >=8.0 0.2 - 12 mg/dL [facility] BOX TESTon 06-04-2024 BOX TEST SENT OUT [facility] BOX1 [facility] BOX2 06/04/24 [facility] BOX [facility] HCG ( test) Ql (U)o n 05-20-2024 Interpretation and review of laboratory results Abnormal [facility] Preg Test, Ur Positive Negative [facility] Urine Cultureon 05-14-2024 Bacteria identified Cx Nom (U) 30,000 colonies/ml mixed bacterial skin contaminants 2 Days PERFORMED BY: [facility] [address] PATHOLOGIST SOFA BACK UPHOLSTERER LIIDA Castro [facility] Comment on above: Performed By: #### C UU #### [facility] [address] Laboratory - Chemistry and C hemistry - challengeon 04-08-2024 Bilirubin Ql (U) 1+ Negative [facility] Glucose [Mass/Vol] Negative Negative [facility] Ketones Ql (U) Negative Negative [facility] pH (U) 7 [pH] 5.0 - 6.0 [facility] Specific gravity (U) [Rel density] 1.015 1.001 - 1.035 [facility] Laboratory - Hematology and Cell countson 04-08-2024 Hemoglobin Ql (U) + Negative [facility] Laboratory - Urinalysison Nitrite Ql (U) Negative Negative [facility] Protein Ql (U) 1+ Negative [facility] No Panel Informationon 04-08 Interpretation and review of laboratory results Abnormal [facility] Healthcare LEUKOCYTES 1+ Negative [facility] Healthcare UROBILINOGEN 2+ 0.2 - 1.0 [facility] Healthcare ED Note-Physicianon 10-29-19 ED Note-Physician Basic [...] Rivera In 3 days 10/31/2023 EDT [address] [place] [address]- Business (1) Additional Instructions: MORRO HAUSER In 3 days [address] [place] [address]- [phone] Business (1) Additional Instructions: Patient Education Knee Sprain, Adult How to Use a Knee Immobilizer Radial Nerve Palsy Crutch Use, Adult, Ekws-sz-Vwkj Attestation I performed a subst (more content not included)... [facility] Comment on above: Result Comment: Elec tronically Signed By: Alejandra Sun PA-C\.br\Date and Time Signed: 10/28/23 16:45 EDT\.br\Electronically Co-Signed By: Rupert Soriano DO\.ben\Date and Time Co-Signed: 10/29/23 08:08 EDT Consent for Treatmenton Consent for Treatment [id number]#[id number] [facility] Discharge Instructionson Discharge Instructions [id number]#[id number] [facility] ED Clinical Summaryon 2023 ED Clinical Summary (Inserted Image. Judith ble to display) [place] [id number] ED Clinical Summary Person Information Name: HEENA [facility] Age: 18 Years : 2005 Sex: Female Language: Sammarinese PCP: MORRO HAUSER CNP Marital Status: Single [...] 10/28/2023 12:35:22 10/28/2023 12:35:22 10/28/2023 12:35:22 ADDRESS: [address] [place] [phone] PHYS DOC NOTES: MEDICAL INFORMATION: Prescriptions Given: PATIENT EDUCATION INFORMATION: Instructions: Knee Sprain, Adult; How to Use a Knee Immobilizer; Radial Nerve Palsy; Crutch Use, Adult, Rkrz-rb-Zmal Follow up: With: Address: When: Rayne Rivera [address] [place] [id number] [place] (1) In 3 days 10/31/2023 With: Address: When: [address] [phone] Jumo (1) In 3 days DIAGNOSIS: 1:Strain of right knee Normal [facility] ED Patient Education Noteon 10-28-2023 ED Patient [...] or lying down. General instructions ? Take chuk-rpk-yrzilkc and prescription medicines only as told by [...] provider. Document Revised: 08/14/2022 Document Reviewed: 03/26/2020 [employer] Patient Education ? 2022 [employer] How to Use a Knee Immobilizer [...] by your (more content not included)... Normal [facility] ED Patient Summaryon 024 ED Patient Summary (Inserted Image. Judith ble to display) [facility] [address] [place], [place] [address] Patient Discharge Instructions Person Information Name: HEENA WANG Age: 18 Years Arrival Date: 10/28/2023 11:07:53 Discharge Diagnosis: 1:Strain of right knee Primary Care Physician: MORRO HAUSER CNP Provider Information Primary Provider: Rupert Soriano DO Advanced Assurance Sourcing Manager:None The exam and treatment you received in the Emergency Department were for an urgent problem and are not intended as complete care. It is important that you follow up with a doctor, nurse practitioner, or physician?s assistant unit forester for ongoing care. If your symptoms become [...] Instructions: With: Address: When: Rayne Rivera [address] [place] [address] Business (1) In 3 days 10/31/2023 With: Address: When: MORRO HAUSER [address] [place] [phone] [facility] (1) In 3 days In the event that this physician does not participate in your insurance network, please consult with your insurance company to find a nearby participating provider. Patient Education Materials: Knee Sprain, Adult; How to Use a Knee Immobilizer; Radial Nerve Palsy; Crutch Use, Adult, Nhhr-nj-Jrtc A MESSAGE TO ALL PATIENTS REGARDING OPIOIDS PRESCRIPTION OPIOIDS: WHAT YOU NEED TO KNOW Prescription opioids can be used to help relieve qfwpbwfu-ge-fvbvie pain and are often prescribed following a [...] If y (more content not included)... Normal [facility] XR Knee Complete 4+ Views Mónica puri [...] mGy = na DAP = na Normal [facility] Quick Strepon 03-02-2023 S. pyogenes Org specific cx Ql (Throat) Negative [employer] Other Quick Strep [employer] Other US PELVISon 07-03-2022 US PELVIS EXAMINATION: [...] JOSÉ MIGUEL LAM Date: 2022-07-03 16:[address] [facility] Basophils Auto (Bld) [#/Vol] Ordered By: Melo Diana on 06-09-2022 Basophils (Bld) [#/Vol] 0.0 10*3/uL 0.0-0.2 [facility] Basophils/100 WBC Auto (Bld) Ordered By: Melokatie Diana on 06-09-2022 Basophils/100 WBC (Bld) 0.1 % . [facility] Creatinine and Glomerular fi ltration rate.predicted panel (S/P/Bld)Ordered By: Melo Diana on 06-09-2022 Creatinine [Mass/Vol] 0.61 mg/dL 0.44-1.03 [facility] Eosinophils Auto (Bld) [#/Vo l]Ordered By: Melokatie Diana on 06-09-2022 Eosinophils (Bld) [#/Vol] 0.0 10*3/uL 0.0-0.45 [facility] Eosinophils/100 WBC Auto (Bl d)Ordered By: Melokatie Diana on 06-09-2022 Eosinophils/100 WBC (Bld) 0.0 % . [facility] Erythrocyte distribution wid th Auto (RBC) [Ratio]Ordered By: Melo Diana on 06-09-2022 Erythrocyte distribution width (RBC) [Ratio] 13.3 % 11.9-15.3 [facility] Estimated glomerular filtrat ion rate (GFR) non- AmericanOrdered By: Melokatie Diana on 06-09-2022 GFR/1.73 sq M.predicted among non-blacks MDRD (S/P/Bld) [Vol rate/Area] > 60 mL/Min [facility] Hematocrit Auto (Bld) [Volum e fraction]Ordered By: Melokatie Diana on 06-09-2022 Hematocrit (Bld) [Volume fraction] 36.1 % 34.0-46.4 [facility] Hemoglobin [Mass/volume] in BloodOrdered By: Melokatie Diana on 06-09-2022 Hemoglobin (Bld) [Mass/Vol] 12.1 g/dL 11.8-15.4 [facility] Leukocytes [#/volume] correc gloria for nucleated erythrocytes in Blood by Automated counOrdered By: Melo Diana on 06-09-2022 WBC corrected for nucl RBC Auto (Bld) [#/Vol] 9.8 10*3/uL 3.8-11.6 [facility] Lymphocytes Auto (Bld) [#/Vo l]Ordered By: Melo Diana on 06-09-2022 Lymphocytes (Bld) [#/Vol] 1.6 10*3/uL 1.00-4.8 [facility] Lymphocytes/100 WBC Auto (Bl d)Ordered By: Meol Diana on 06-09-2022 Lymphocytes/100 WBC (Bld) 16.1 % . [facility] MCH Auto (RBC) [Entitic mass ]Ordered By: Melo Diana on 06-09-2022 MCH (RBC) [Entitic mass] 29.4 pg 24.7-34.3 [facility] MCHC Auto (RBC) [Mass/Vol]Or dered By: Melo Diana on 06-09-2022 MCHC (RBC) [Mass/Vol] 33.5 g/dL 32.0-35.0 [facility] MCV Auto (RBC) [Entitic vol] Ordered By: Melo Diana on 06-09-2022 MCV (RBC) [Entitic vol] 87.8 fL 80-100 [facility] Monocytes Auto (Bld) [#/Vol] Ordered By: Melo Diana on 06-09-2022 Monocytes (Bld) [#/Vol] 1.0 10*3/uL 0.0-0.8 [facility] Monocytes/100 WBC Auto (Bld) Ordered By: Melo Diana on 06-09-2022 Monocytes/100 WBC (Bld) 10.4 % . [facility] Neutrophils Auto (Bld) [#/Vo l]Ordered By: Melo Diana on 06-09-2022 Neutrophils (Bld) [#/Vol] 7.2 10*3/uL 1.8-7.7 [facility] Neutrophils/100 WBC Auto (Bl d)Ordered By: Melo Diana on 06-09-2022 Neutrophils/100 WBC (Bld) 73.4 % . [facility] No Panel InformationOrdered By: Melo Diana on 06-09-2022 Estimated GFR () > 60 mL/Min [facility] Comment on above: GFR estimated refere nce range: According to KDOQI guidelines, <60 ml/min/1.73m2 is sufficient to diagnose a patient with chronic kidney disease. Pharmacy Creatinine Clearance (Chem 181.95 [facility] Nucleated erythrocytes [Pres ence] in Blood by Automated countOrdered By: Melo Diana on 06-09-2022 Nucleated RBC Auto Ql (Bld) 0.1 /100{WBC} 0-0.5 [facility] Platelet mean volume Auto (B ld) [Entitic vol]Ordered By: Melo Diana on 06-09-2022 Platelet mean volume (Bld) [Entitic vol] 9.5 fL 6.3-10.7 [facility] Platelets Auto (Bld) [#/Vol] Ordered By: Melo Diana on 06-09-2022 Platelets (Bld) [#/Vol] 273 10*3/uL 150-450 [facility] RBC Auto (Bld) [#/Vol]Ordere d By: Melo Diana on 06-09-2022 RBC (Bld) [#/Vol] 4.11 10*6/uL 3.60-5.00 [facility] Serum or plasma anion gap de terminationOrdered By: Melo Diana on 06-09-2022 Anion gap [Moles/Vol] 11.8 mmol/L 6.0-15.0 [facility] Serum or plasma calcium diomedes urement (mass/volume)Ordered By: Melo Diana on 06-09-2022 Calcium [Mass/Vol] 8.3 mg/dL 8.2-10.2 [facility] Serum or plasma chloride omar surement (moles/volume)Ordered By: Melo Diana on 06-09-2022 Chloride [Moles/Vol] 98 mmol/L 95-114 [facility] Serum or plasma glucose diomedes urement (mass/volume)Ordered By: Melo Diana on 06-09-2022 Glucose [Mass/Vol] 97 mg/dL 70-100 [facility] Comment on above: ADA recommended refe rence rangeRandom Glucose Reference Range is dependent on time and content of last meal. Glucose of more than 200 mg/dL in a nonstressed, ambulatory subject supports the diagnosis of Diabetes Mellitus. Serum or plasma potassium me asurement (moles/volume)Ordered By: Melo Diana on 06-09-2022 Potassium [Moles/Vol] 4.0 mmol/L 3.5-5.1 [facility] Serum or plasma sodium measu rement (moles/volume)Ordered By: Melo Diana on 06-09-2022 Sodium [Moles/Vol] 132 mmol/L 136-146 [facility] Serum or plasma total carbon dioxide measurement (moles/volume)Ordered By: Melo Diana on 06-09-2022 CO2 [Moles/Vol] 26.2 mmol/L 22.0-30.0 [facility] Serum or plasma urea nitroge n measurement (mass/volume)Ordered By: Melo Diana on 06-09-2022 Urea nitrogen [Mass/Vol] 11 mg/dL 9-23 [facility] WBC Auto (Bld) [#/Vol]Ordere d By: Melo Diana on 06-09-2022 WBC (Bld) [#/Vol] 9.8 10*3/uL 3.8-11.6 [facility] Activated partial thrombopla stin time (aPTT) in platelet poor plasma by coagulation aOrdered By: Lorelei Avery on 06-05-2022 aPTT Coag (PPP) [Time] 32.1 s 25.1-36.5 [facility] Aerobic cultureOrdered By: Zehra Avery on 06-05-2022 Bacteria identified Aer cx Nom (Unsp spec) No Growth 2 Days [facility] Albumin [Mass/volume] in Cer ebral spinal fluidOrdered By: Lorelei Avery on 06-05-2022 Albumin (CSF) [Mass/Vol] 35 mg/dL 7-29 [facility] Albumin [Mass/volume] in Ser um or PlasmaOrdered By: Lorelei Avery on 06-05-2022 Albumin [Mass/Vol] 4.3 g/dL 3.9-5.0 [facility] Anaerobic cultureOrdered By: Lorelei Avery on 06-05-2022 Bacteria identified Anaer cx Nom (Unsp spec) No Anaerobes Isolated 3 Days [facility] CSF IgG/albumin ratioOrdered By: Lorelei Avery on 06-05-2022 IgG/Albumin (CSF) [Mass ratio] 0.24 0.00-0.25 [facility] Cerebrospinal fluid IgG inde xOrdered By: Lorelei Avery on 06-05-2022 IgG clearance/Albumin clearance (S+CSF) [Ratio] 0.8 0.0-0.7 [facility] Cerebrospinal fluid eosinoph il percentageOrdered By: Lorelei Avery on 06-05-2022 Eosinophils/100 WBC (CSF) 0 % 0-0 [facility] Cerebrospinal fluid lymphocy te percentageOrdered By: Lorelei Avery on 06-05-2022 Lymphocytes/Leukocytes Manual cnt (CSF) [Pure # fraction] 87 % 40-80 [facility] Cerebrospinal fluid monocyte percentageOrdered By: Lorelei Avery on 06-05-2022 Monocytes/100 WBC (CSF) 9 % 15-45 [facility] Cerebrospinal fluid neutroph il percentageOrdered By: Lorelei Avery on 06-05-2022 Neutrophils/100 WBC (CSF) 4 % 0-6 [facility] Cerebrospinal fluid post-suraj trifugation appearance determinationOrdered By: Lorelei Avery on 06-05-2022 Appearance (Spun CSF) Colorless Colorless [facility] Cerebrospinal fluid sample t ube volume measurementOrdered By: Lorelei Avery on 06-05-2022 Specimen volume (CSF) 14.0 mL [facility] Color CSFOrdered By: Lorelei Avery on 06-05-2022 Color (CSF) Colorless Colorless [facility] Gram stain for investigation of transfusion reactionOrdered By: Lorelei Avery on 06-05-2022 Microscopic observation Gram stain Nom (Unsp spec) [facility] HIV 1 and HIV-2 antibody ass ay with HIV-1 p24 antigen detectionOrdered By: Lorelei Avery on 06-05-2022 HIV 1+2 Ab+HIV1 p24 Ag IA Ql Non-Reactive Non Reactive [facility] Comment on above: HIV NegativeHIV-1/HI V-2 antibodies and HIV-1 p24 antigen were NOTdetected. There is no laboratory evidence of HIV infection.Performed at: CB - [facility] [address] [id number] Director: Steve Fatima PhD, Phone: [phone] IgG [Mass/volume] in Cerebra l spinal fluidOrdered By: Lorelei Avery on 06-05-2022 IgG (CSF) [Mass/Vol] 8.3 mg/dL 0.0-6.7 [facility] IgG [Mass/volume] in Serum o r PlasmaOrdered By: Lorelei Avery on 06-05-2022 IgG [Mass/Vol] 1274 mg/dL [phone] [facility] IgG synthesis rate [Mass/mily e] in Serum and CSF by calculationOrdered By: Lorelei Avery on 06-05-2022 IgG synthesis rate Calc (S+CSF) [Mass/Time] 13.9 mg/day -9.9 TO +3.3 [facility] Comment on above: Performed at: [facility] [address] [id number] Director: Steve Fatima PhD, Phone: [phone] Laboratory - CoagulationOrde red By: Lorelei Avery on 06-05-2022 PT Coag (PPP) [Time] 13.4 s 9.0-12.9 [facility] Manual cerebrospinal fluid e rythrocytes count (number/volume)Ordered By: Lorelei Avery on 06-05-2022 RBC Manual cnt (CSF) [#/Vol] 0 /uL [facility] Comment on above: The reference interv al and other method performance specifications have not been established for this body fluid. The test result must be integrated into the clinical context for interpretation. No Panel InformationOrdered By: Lorelei Avery on 06-05-2022 CSF Appearance Clear Clear [facility] CSF Glucose 46 mg/dL 40-70 [facility] CSF Total Protein 59 mg/dL 15-45 [facility] CSF Tube Number Tube number: 1 [facility] No Panel InformationOrdered By: Kt Pearson on 06-05-2022 Anti-Nuclear Antibody Comment 2 See comment . [facility] Comment on above: For more information about Hep-2 cell patterns useWhere I've BeenpatterBplats.[employer], the official website for the Shouts on Antinuclear Antibody (LIZZY) Patterns (ICAP). ----A positive LIZZY result may occur in healthy individuals (lowtiter) or be associated with a variety of diseases. Seeinterpretation chart which is not all inclusive:Pattern Antigen Detected Suggested Disease Association Homogeneous DNA(ds,ss), SLE - High titers Nucleosomes, Histones Drug-induced SLE Speckled Sm, BELL MAKER, SCL-70, SLE,MCTD,PSS (diffuse form), SS-A/SS-B Sjogrens Nucleolar SCL-70, PM-1/SCL High titers Scleroderma, PM/DM Centromere Centromere PSS (limited form) w/Crest syndrome variable Nuclear Dot Sp100,[id number] Primary Biliary Cirrhosis Nuclear GP210, Primary Biliary CirrhosisMembrane miranda A,B,C Performed at: [facility] [employer] [facility] [employer] [id number] Director: Steve Fatima PhD, Phone: [phone] BELL MAKER Antibody 0.2 AI 0.0-0.9 [facility] Nucleated cells [#/volume] i n Cerebral spinal fluid by Manual countOrdered By: Lorelei Avery on 06-05-2022 Nucleated cells Manual cnt (CSF) [#/Vol] 0.16 10*3/uL 0-5 [facility] Comment on above: Critical valueresult calledat 1732 on 06/05/22 Platelet poor plasma interna tional normalized ratio (INR) by coagulation assay (relatOrdered By: Lorelei Avery on 06-05-2022 INR Coag (PPP) [Relative time] 1.2 {INR} [facility] Comment on above: INR Therapeutic Rang [...] Ab IA Qn (S) 0.2 AI 0.0-0.9 [facility] Comment on above: Performed at: [place], [place] [id number] Director: Steve Fatima PhD, Phone: [phone] Serum Sjogrens syndrome-A ex tractable nuclear antibody assay (units/volume)Ordered By: Kt Pearson on 06-05-2022 Sjogrens syndrome-A extractable nuclear Ab Qn (S) 0.2 AI 0.0-0.9 [facility] Serum Sjogrens syndrome-B ex tractable nuclear antibody assay (units/volume)Ordered By: Kt Pearson on 06-05-2022 Sjogrens syndrome-B extractable nuclear Ab Qn (S) <0.2 AI 0.0-0.9 [facility] Serum Zamora extractable nucl ear antigen (HRENESTO) antibody assay (units/volume)Ordered By: Kt Pearson on 06-05-2022 Zamora extractable nuclear Ab Qn (S) <0.2 AI 0.0-0.9 [facility] Serum angiotensin converting enzyme (SUSIE) measurementOrdered By: Kt Pearson on 06-05-2022 Angiotensin converting enzyme [Catalytic activity/Vol] 26 U/L 14-82 [facility] Comment on above: Performed at: [id number] [place], [place] [id number] Director: Steve Fatima PhD, Phone: [phone] Serum homogeneous pattern an tinuclear antibody (LIZZY) titerOrdered By: Kt Pearson on 06-05-2022 Homogenous nuclear Ab pattern (S) [Titer] 1:160 . [facility] Comment on above: ICAP nomenclature: A C-1 Serum nuclear antibody titer Ordered By: Kt Pearson on 06-05-2022 Nuclear Ab (S) [Titer] Positive . [facility] Comment on above: Negative <1:80 Borde rline 1:80 Positive >1:80 Chlamydia trachomatis DNA [P resence] in Specimen by TERESA with probe detectionOrdered By: Isaías Pan on 06-04-2022 C. trachomatis DNA TERESA+probe Ql (Unsp spec) Negative Negative [facility] Fungal cultureOrdered By: Mónica Pan on 06-04-2022 Fungus identified Cx Nom (Unsp spec) [facility] Herpes simplex virus (HSV) c ulture with typingOrdered By: Isaías Pan on 06-04-2022 HSV identified Org specific cx Nom (Unsp spec) See comment . [facility] Comment on above: Positive for Herpes simplex virus type-2. Typing wasconfirmed by monoclonal antibody microscopicimmunofluorescence.Performed at: [address] [id number] Director: Steve Fatima PhD, Phone: [phone] Neisseria gonorrhoeae DNA [P resence] in Specimen by TERESA with probe detectionOrdered By: Isaías Pan on 06-04-2022 N. gonorrhoeae DNA TERESA+probe Ql (Unsp spec) Negative Negative [facility] Trichomonas vaginalis DNA [P resence] in Specimen by TERESA with probe detectionOrdered By: Isaías Pan on 06-04-2022 T. vaginalis DNA TERESA+probe Ql (Unsp spec) Negative Negative [facility] Comment on above: Performed at: [address] [id number] Director: Evelyn Arnold MD, Phone: [phone] Trichomonas vaginalis detect ion by wet preparationOrdered By: Isaías Pan on 06-04-2022 T. vaginalis Wet prep Ql (Unsp spec) [facility] Albumin [Mass/volume] in Ser um or PlasmaOrdered By: Ravi Zhang on 06-02-2022 Albumin [Mass/Vol] 3.5 g/dL 3.2-5.5 [facility] C reactive protein [Mass/vol ume] in Serum or PlasmaOrdered By: Ravi Zhang on 06-02-2022 CRP [Mass/Vol] 0.6 mg/dL 0.0-1.0 [facility] Direct bilirubin measurement Ordered By: Ravi Zhang on 06-02-2022 Bilirubin.direct [Mass/Vol] 0.2 mg/dL 0.0-0.4 [facility] Erythrocyte sedimentation ra te by Photometric methodOrdered By: Ravi Zhang on 06-02-2022 ESR Photometric method (Bld) [Velocity] 26 mm/hr 0-19 [facility] Folate [Mass/volume] in Seru m or PlasmaOrdered By: Ravi Zhang on 06-02-2022 Folate [Mass/Vol] 16.6 ng/mL >5.9 [facility] Comment on above: Folate reference ran ge: >5.9 ng/mlThe WHO technical consultation on folate and vitamin [id number] has determined that folate concentrations lessthan 4 ng/ml are considered deficient. Globulin Calc (S) [Mass/Vol] Ordered By: Ravi Zhang on 06-02-2022 Globulin (S) [Mass/Vol] 3.7 g/dL [facility] Glucose mean value [Mass/vol ume] in Blood Estimated from glycated hemoglobinOrdered By: Ravi Zhang on 06-02-2022 Average glucose Estimated from glycated hemoglobin (Bld) [Mass/Vol] 103 mg/dL [facility] Hemoglobin A1c percentageOrd ered By: Ravi Zhang on 06-02-2022 HbA1c (Bld) [Mass fraction] 5.2 % 4.3-5.6 [facility] Comment on above: Increased risk for d iabetes: 5.7 - 6.4diabetes: >6.4glycemic control for adults with diabetes: <7.0 Laboratory - Chemistry and C hemistry - challengeOrdered By: Ravi Zhang on 06-02-2022 Cobalamin (Vitamin B12) [Mass/Vol] 368 pg/mL 180-914 [facility] Magnesium [Mass/Vol] 2.1 mg/dL 1.6-2.6 [facility] Phosphate [Mass/volume] in S [place] or PlasmaOrdered By: Ravi Zhang on 06-02-2022 Phosphate [Mass/Vol] 3.8 mg/dL 2.5-4.6 [facility] Protein [Mass/volume] in Ser um or PlasmaOrdered By: Ravi Zhang on 06-02-2022 Protein [Mass/Vol] 7.2 g/dL 6.1-7.9 [facility] Serum or plasma alanine hooper otransferase measurement without P-5'-P (enzymatic activiOrdered By: Ravi Zhang on 06-02-2022 ALT No additional P-5'-P [Catalytic activity/Vol] 26 U/L 10-60 [facility] Serum or plasma albumin/glob ulin mass ratioOrdered By: Ravi Zhang on 06-02-2022 Albumin/Globulin [Mass ratio] 0.9 {ratio} [facility] Serum or plasma alkaline keven sphatase measurement (enzymatic activity/volume)Ordered By: Ravi Zhang on 06-02-2022 ALP [Catalytic activity/Vol] 60 U/L 32-92 [facility] Serum or plasma aspartate am inotransferase measurement (enzymatic activity/volume)Ordered By: Ravi Zhang on 06-02-2022 AST [Catalytic activity/Vol] 31 U/L 10-42 [facility] Serum or plasma non-glucuron idated bilirubin measurement (mass/volume)Ordered By: Ravi Zhang on 06-02-2022 Bilirubin.indirect [Mass/Vol] 0.7 mg/dL [facility] Serum or plasma thyroxine (T 4) measurement (mass/volume)Ordered By: Ravi Zhang on 06-02-2022 T4 [Mass/Vol] 9.70 ug/dL 5.39-11.82 [facility] Serum or plasma total biliru bin measurement (mass/volume)Ordered By: Ravi Zhang on 06-02-2022 Bilirubin [Mass/Vol] 0.9 mg/dL 0.3-1.2 [facility] TSH DL <= 0.005 mIU/L QnOrde red By: Ravi Zhang on 06-02-2022 TSH Qn 0.85 m[IU]/L 0.45-5.33 [facility] Thyroxine (T4) free [Mass/vo lume] in Serum or PlasmaOrdered By: Ravi Zhang on 06-02-2022 Free T4 [Mass/Vol] 0.96 ng/dL 0.61-1.12 [facility] MICRO OTHER TESTSOrdered By: Sree Reeves on [...] Time Vital Sign Value Performing Clinician Facility 07-16-2024 10:52-0500 Body mass index (BMI) [Ratio] 25.11 kg/m2 Susan RAZO Work Phone: [facility] 07-16-2024 10:52-0500 Body weight 79.38 kg Susan RAZO Work Phone: [facility] 07-16-2024 10:52-0500 Diastolic blood pressure 66 mm[Hg] Susan RAZO Work Phone: [facility] 07-16-2024 10:52-0500 Systolic blood pressure 114 mm[Hg] Susan RAZO Work Phone: [facility] 06-17-2024 11:34-0500 Body mass index (BMI) [Ratio] 24.39 kg/m2 Benji Madhu DO Work Phone: [facility] 06-17-2024 11:34-0500 Body weight 77.11 kg Benji Madhu DO Work Phone: [facility] 06-17-2024 11:34-0500 Diastolic blood pressure 62 mm[Hg] Benji Madhu DO Work Phone: [facility] 06-17-2024 11:34-0500 Systolic blood pressure 116 mm[Hg] Benji Syo DO Work Phone: [facility] 05-20-2024 10:23-0500 Body mass index (BMI) [Ratio] 23.82 kg/m2 [facility] Nurse [facility] 05-20-2024 10:23-0500 Body weight 75.3 kg [facility] Nurse [facility] 04-08-2024 18:25-0500 Body mass index (BMI) [Ratio] 26.54 kg/m2 Samra Trinidad DO Work Phone: [facility] 04-08-2024 18:25-0500 Body temperature 98.2 [degF] Samra Trinidad DO Work Phone: [facility] 04-08-2024 18:25-0500 Body weight 83.92 kg Samra Trinidad DO Work Phone: [facility] 04-08-2024 18:25-0500 Diastolic blood pressure 78 mm[Hg] Samar Trinidad DO Work Phone: [facility] 04-08-2024 18:25-0500 Heart rate 103 /min Samra Trinidad DO Work Phone: [facility] 04-08-2024 18:25-0500 SaO2% (BldA) [Mass fraction] 98 % Samra Trinidad DO Work Phone: [facility] 04-08-2024 18:25-0500 Systolic blood pressure 118 mm[Hg] Samra Trinidad DO Work Phone: [facility] 02-11-2024 10:00-0400 Body height 177.8 cm [facility] Work Phone: [facility] 02-11-2024 10:00-0400 Body mass index (BMI) [Ratio] 26.4 kg/m2 [facility] Work Phone: [facility] 02-11-2024 10:00-0400 Body weight 83.46 kg [facility] Work Phone: [facility] 10-28-2023 11:24-0400 Body temperature 98.42 [degF] Rupert Christie [facility] 10-28-2023 11:24-0400 Diastolic blood pressure 73 mm[Hg] Rupert Soriano [facility] 10-28-2023 11:24-0400 Heart rate 95 /min Rupert Soriano [facility] 10-28-2023 11:24-0400 Respiratory rate 16 /min Rupert Soriano [facility] 10-28-2023 11:24-0400 SaO2% (BldA) [Mass fraction] 100 % Rupert Soriano [facility] 10-28-2023 11:24-0400 Systolic blood pressure 131 mm[Hg] Rupert Soriano [facility] 03-02-2023 11:25-0400 Body height 176.53 cm Racheal Nuñezmond Other [employer] Other 03-02-2023 11:25-0400 Body mass index (BMI) [Ratio] 28.31 kg/m2 Racheal Yari Other [employer] Other 03-02-2023 11:25-0400 Body temperature 98.2 [degF] Racheal Yari Other [employer] Other 03-02-2023 11:25-0400 Body weight 88.23 kg Racheal Nuñezmond Other [employer] Other 03-02-2023 11:25-0400 Respiratory rate 18 /min Racheal Nuñezmond Other [employer] Other 03-02-2023 11:25-0400 SaO2% (BldA) [Mass fraction] 99 % Racheal Yari Other [facility] [employer] Other 01-07-2023 11:18-0400 Body height 182.88 cm [employer]ENTER MA[employer] Morro Easterwood Work Phone: [facility] 01-07-2023 11:18-0400 Body temperature 98.7 [degF] BUSINESS CENTER MANAGER Morro Easterwood Work Phone: [facility] 01-07-2023 11:18-0400 Body weight 87.85 kg BUSINESS CENTER MANAGER Morro Easterwood Work Phone: [facility] 01-07-2023 11:18-0400 Diastolic blood pressure 93 mm[Hg] BUSINESS CENTER MANAGER Morro Easterwood Work Phone: [facility] 01-07-2023 11:18-0400 Heart rate 102 /min BUSINESS CENTER MANAGER Morro Easterwood Work Phone: [facility] 01-07-2023 11:18-0400 Respiratory rate 20 /min BUSINESS CENTER MANAGER Morro Easterwood Work Phone: [facility] 01-07-2023 11:18-0400 SaO2% (BldA) [Mass fraction] 99 % BUSINESS CENTER MANAGER Morro Easterwood Work Phone: [facility] 01-07-2023 11:18-0400 Systolic blood pressure 146 mm[Hg] BUSINESS CENTER MANAGER Morro Easterwood Work Phone: [facility] 06-15-2022 08:13-0500 Blood Pressure Location Iman Lue [facility] 06-15-2022 08:13-0500 Diastolic blood pressure 88 mm[Hg] Iman Lue [facility] 06-15-2022 08:13-0500 Heart rate 93 /min Iman Lue [facility] 06-15-2022 08:13-0500 Systolic blood pressure 125 mm[Hg] Iman Lue [facility] 06-15-2022 08:13-0500 weight 1.73 Iman Lue [facility] Comment on above: Result Comment: ^~:!ZScore Source -[facility] 06-15-2022 08:13-0500 Weight Percentile 95.83 % Iman Lue [facility] Comment on above: Result Comment: ^~:!Percentile Source [facility] 06-14-2022 14:00-0500 Body height 176.53 cm [employer] Other [employer] Other 06-14-2022 14:00-0500 Body mass index (BMI) [Ratio] 26.49 kg/m2 [employer] Other [employer] Other 06-14-2022 14:00-0500 Body temperature 98.4 [degF] [employer] Other [employer] Other 06-14-2022 14:00-0500 Body weight 82.56 kg [employer] Other [employer] Other 06-14-2022 14:00-0500 Diastolic blood pressure 82 mm[Hg] [email or web address] Other [employer] Other 06-14-2022 14:00-0500 Respiratory rate 20 /min [employer] Other [employer] Other 06-14-2022 14:00-0500 SaO2% (BldA) [Mass fraction] 98 % Morro Hauser Other [facility] [employer] Other 06-14-2022 14:00-0500 Systolic blood pressure 120 mm[Hg] Morro Hauser Other [facility] [employer] Other 06-09-2022 17:36-0500 Body temperature 97.8 [degF] DO Ravi Lindbloom Work Phone: [facility] 06-09-2022 17:36-0500 Diastolic blood pressure 65 mm[Hg] DO Ravi Lindbloom Work Phone: [facility] 06-09-2022 17:36-0500 Heart rate 78 /min DO Ravi Lindbloom Work Phone: [facility] 06-09-2022 17:36-0500 Respiratory rate 18 /min DO Ravi Lindbloom Work Phone: [facility] 06-09-2022 17:36-0500 SaO2% (BldA) [Mass fraction] 96 % DO Ravi Lindbloom Work Phone: [facility] 06-09-2022 17:36-0500 Systolic blood pressure 129 mm[Hg] DO Ravi Lindbloom Work Phone: [facility] 06-09-2022 03:16-0500 Body weight 83.2 kg DO Ravi Lindbloom Work Phone: [facility] 06-06-2022 13:58-0500 Body height 187.96 cm DO Ravi Lindbloom Work Phone: [facility] 05-24-2022 15:07-0500 Blood Pressure Location Loreto DONALDSON [facility] 01-04-2023 15:07-0500 Body temperature 98.06 [degF] Loreto DONALDSON [facility] 05-24-2022 15:07-0500 bodymassindex 0.85 Loreto DONALDSON [facility] Comment on above: Result Comment: ^~:!ZScore [facility] 05-24-2022 15:07-0500 Diastolic blood pressure 70 mm[Hg] Loreto DONALDSON [facility] 05-24-2022 15:07-0500 Heart rate 72 /min Loreto DONALDSON [facility] 05-24-2022 15:07-0500 Height/Length Percentile 99.82 Loreto DONALDSON [facility] Comment on above: Result Comment: ^~:!Percentile Source [facility] 05-24-2022 15:07-0500 Height/Length Z-Score 2.91 Loreto DONALDSON [facility] Comment on above: Result Comment: ^~:!ZScore [facility] 05-24-2022 15:07-0500 SaO2% (BldA) [Mass fraction] 99 % Loreto DONALDSON [facility] 05-24-2022 15:07-0500 Systolic blood pressure 110 mm[Hg] Loreto DONALDSON [facility] 05-24-2022 15:07-0500 weight 1.68 Loreto DONALDSON [facility] Comment on above: Result Comment: ^~:!ZScore [facility] 05-24-2022 15:07-0500 Weight Percentile 95.39 % Loreto DONALDSON [facility] Comment on above: Result Comment: ^~:!Percentile Source [facility] 01-05-2022 09:00-0400 Body height 176.53 cm Morro Easterwood Other [employer] Other 01-05-2022 09:00-0400 Body mass index (BMI) [Ratio] 26.34 kg/m2 Morro Easterwood Other [employer] Other 01-05-2022 09:00-0400 Body temperature 98 [degF] Morro Easterwood Other [employer] Other 01-05-2022 09:00-0400 Body weight 82.1 kg Morro Easterwood Other [employer] Other 01-05-2022 09:00-0400 Diastolic blood pressure 78 mm[Hg] Morro Easterwood Other [employer] Other 01-05-2022 09:00-0400 Respiratory rate 20 /min Morro Easterwood Other [employer] Other 01-05-2022 09:00-0400 SaO2% (BldA) [Mass fraction] 99 % Morro Easterwood Other [employer] Other 01-05-2022 09:00-0400 Systolic blood pressure 120 mm[Hg] Morro Easterwood Other [employer] Other 11-22-2021 11:30-0400 Body height 176.53 cm Morro Easterwood Other [employer] Other 11-22-2021 11:30-0400 Body mass index (BMI) [Ratio] 25.62 kg/m2 Morro Easterwood Other [employer] Other 11-22-2021 11:30-0400 Body temperature 98.1 [degF] Morro Easterwood Other [employer] Other 11-22-2021 11:30-0400 Body weight 79.83 kg Morro Easterwood Other [employer] Other 11-22-2021 11:30-0400 Diastolic blood pressure 80 mm[Hg] Morro Easterwood Other [employer] Other 11-22-2021 11:30-0400 Respiratory rate 20 /min Morro Easterwood Other [employer] Other 11-22-2021 11:30-0400 SaO2% (BldA) [Mass fraction] 99 % Morro Easterwood Other [employer] Other 11-22-2021 11:30-0400 Systolic blood pressure 120 mm[Hg] Morro Easterwood Other [employer] Other 09-13-2021 15:00-0400 Body height 176.53 cm Morro Easterwood Other [employer] Other 09-13-2021 15:00-0400 Body mass index (BMI) [Ratio] 25.76 kg/m2 Morro Easterwood Other [employer] Other 09-13-2021 15:00-0400 Body temperature 98.4 [degF] Morro Easterwood Other [employer] Other 09-13-2021 15:00-0400 Body weight 80.29 kg Morro Easterwood Other [employer] Other 09-13-2021 15:00-0400 Diastolic blood pressure 70 mm[Hg] Morro Hauser Other [employer] Other 09-13-2021 15:00-0400 Respiratory rate 20 /min Morro Hauser Other [employer] Other 09-13-2021 15:00-0400 SaO2% (BldA) [Mass fraction] 98 % Morro Hauser Other [employer] Other 09-13-2021 15:00-0400 Systolic blood pressure 108 mm[Hg] Morro Hauser Other [employer] Other Encounters Encounter Date Encounter Type Care Provider Facility Start: 07-16-2024 End: 07-16-2024 Bamboo flowsheet Susan RAZO Work Phone: [facility] Start: 07-16-2024 End: 07-18-2024 Bamboo flowsheet Susan RAZO Work Phone: [facility] Start: 07-16-2024 End: 07-18-2024 Clinisync Result Encounter Susan RAZO Work Phone: [facility] Unsolicited Start: 07-16-2024 End: 07-17-2024 External Result Encounter Susan RAZO Work Phone: [facility] Unsolicited Start: 07-16-2024 End: 07-16-2024 ambulatory SUSAN MONTANO Not Available Start: 07-16-2024 End: 07-16-2024 Office outpatient visit 15 minutes Susan RAZO Work Phone: [facility] Comment on above: Well woman exam with routine gynecological exam; Second trimester ; 19 weeks gestation of ; Vaginal discharge; STD exposure; Screening, , for anatomic survey Start: 07-16-2024 End: 07-16-2024 Patient encounter procedure Susan RAZO Work Phone: [facility] Work Phone: Start: 06-17-2024 End: 06-17-2024 Bamboo flowsheet Benji [...] Start: 05-14-2024 End: 05-14-2024 ambulatory Percy Mendoza Facility:[facility] Start: 04-15-2024 End: 04-15-2024 Office outpatient visit 15 minutes Benji Madhu DO Work Phone: [facility] Comment on above: Encounter for survei llance of other contraceptive Start: 04-08-2024 End: 04-08-2024 ambulatory SAMRA L CUTLER Not Available Start: 04-08-2024 End: 04-08-2024 Office outpatient visit 15 minutes Samra L Trinidad DO Work Phone: [facility] Comment [...] 11-28-2023 End: 11-28-2023 Patient encounter procedure Sampson Taylor [facility] [facility] Start: 11-12-2023 End: 11-12-2023 ambulatory SAMPSON AYALA Not Available Start: 10-28-2023 End: 10-28-2023 Emergency department patient visit Rupert Soriano [facility] Start: 03-02-2023 End: 03-02-2023 ambulatory Racheal Greenberg Other [employer] Other Start: 03-02-2023 Office outpatient vi sit 15 minutes Racheal Greenberg [facility] Start: 01-07-2023 End: 01-07-2023 Emergency department patient visit WINNIE Hauser Work Phone: [facility] Work Phone: Start: 11-15-2022 End: 11-25-2022 Pre-admission assessment Carlin Fuentes [facility] Start: 08-16-2022 End: 08-16-2022 ambulatory Morro Pepitoerwood Other [employer] Other Start: 08-16-2022 Telephone encounter Morro Olmoswood [facility] Start: 07-03-2022 End: 07-04-[address] JOSÉ MIGUEL LAM Facility: Start: 06-15-2022 End: 06-15-2022 Patient encounter procedure Iman Gomez [facility] Start: 06-14-2022 End: 06-14-2022 ambulatory Morro Amariliswood Other [employer] Other Start: 06-14-2022 Office outpatient vi sit 40 minutes Morro Pepitoerwood [facility] Start: 06-09-2022 End: 06-09-2022 ambulatory Morro Pepitoerwood Other [employer] Other Start: 06-09-2022 Telephone encounter Morro Olmoswood [facility] Start: 06-02-2022 End: 06-09-2022 Evaluation and management of inpatient DO Ravi Zhang Work Phone: [facility] [place] [facility] Work Phone: Start: 05-24-2022 End: 05-24-2022 Patient encounter procedure Loreto DONALDSON [facility] Start: 01-05-2022 End: 01-05-2022 ambulatory Morro Easterwood Other [employer] Other Start: 01-05-2022 Office outpatient vi sit 15 minutes Morro Easterwood [facility] Start: 11-24-2021 End: 11-24-2021 ambulatory Morro Easterwood Other [employer] Other Start: 11-24-2021 Telephone encounter Morro Hauser [facility] Start: 11-24-2021 End: 02-22-2022 Recurring MORRO HAUSER [facility] Start: 11-22-2021 End: 11-22-2021 ambulatory Morro Hauser Other [employer] Other Start: 11-22-2021 Office outpatient vi sit 15 minutes Morro [facility] Start: 09-13-2021 End: 09-13-2021 ambulatory Morro Hauser Other [employer] Other Start: 09-13-2021 Office outpatient vi sit 15 minutes [facility] Procedures Date Procedure Procedure Detail Performing Clinician Start: 07-16-2024 RECURRENT VAGINITIS (HTRX) Susan RAZO Work Phone: Start: 07-16-2024 Urnls dip stick/tabl et rgnt non-auto w/o micrscp Susan RAZO Work Phone: Start: 07-16-2024 IGP,APTIMA HPV,AGE GDLN Susan RAZO Work Phone: Start: 06-17-2024 Urnls dip stick/tabl et rgnt [...] cervical spin e with contrast DO Ravi Braroom Work Phone: Start: 06-05-2022 Aerobic microbial culture DO Ravi Lindbloom Work Phone: Start: 06-05-2022 Anaerobic microbial culture DO Ravi Maykeloom Work Phone: Start: 06-05-2022 Investigation of transfusion reaction DO Ravi Siddharthbloom Work Phone: Start: 06-05-2022 MRI of head DO Angy Zhang Work Phone: Start: 06-04-2022 Mycology culture DO Beryl Zhang Work Phone: Start: 06-04-2022 Trichomonas vaginali s detection DO Ravi Siddharthbloom Work Phone: Start: 06-04-2022 Computed tomography of abdomen and pelvis with contrast DO Ravi Maykeloom Work Phone: Start: 06-03-2022 MRI of thoracic spin e with contrast DO Ravi Braroom Work Phone: Plan of Treatment Date Care Activity Detail Author Start: 08-13-2024 End: 08-13-2024 Patient encounter procedure 08/13/2024 11:30 AM EDT Routine [facility] [address] [facility] [place] [address] Benji Leung, DO [address] [place] [address] [facility] Start: 07-16-2024 End: 07-16-2025 Alpha fetoprotein, maternal Alpha fetoprotein, maternal Lab Routine Second trimester 19 weeks gestation of Expected: 07/16/2024 (Approximate), Expires: 07/16/2025 [facility] Comment on above: Expected: 07/16/2024 (Approximate), Expires: 07/16/2025 Start: 07-16-2024 End: 07-16-2025 US for US OB 14+ weeks anatomy scan Imaging Routine Screening, , for anatomic survey Expected: 07/16/2024, Expires: 07/16/2025 [facility] Comment on above: Expected: 07/16/2024 , Expires: 07/16/2025 Start: 07-16-2024 End: 07-16-2024 Patient encounter procedure 07/16/2024 10:30 AM EST Routine [facility] [address] [place] [id number] Susan Montano PA [address] [place] [address] [facility] Start: 06-17-2024 End: 06-17-2024 Patient encounter procedure [facility] Comment on above: Arrived Start: 05-20-2024 End: 05-20-2025 ABO/Rh ABO/Rh Lab Routine Missed menses , unspecified gestational age Expected: 05/20/2024 (Approximate), Expires: 05/20/2025 [facility] Comment on above: Expected: 05/20/2024 (Approximate), Expires: 05/20/2025 Start: 05-20-2024 End: 05-20-2025 Blood type and Indirect antibody screen panel - Blood Type and screen Lab Routine Missed menses , unspecified gestational age Expected: 05/20/2024 (Approximate), Expires: 05/20/2025 [facility] Work Phone: Comment on above: Expected: [...] EST Office Visit [facility] [address] [place] [id number] Benji Leung DO [address] [place] [address] [facility] Start: 02-11-2024 End: 02-11-2024 Patient encounter procedure 02/11/2024 10:00 AM EDT Office Visit [facility] [address] [place] [id number] Sampson Ayala PA [address] [address] Arrived [facility] Comment on above: Arrived Start: 06-09-2022 [facility] Start: 06-06-2022 Referral to infectio us diseases physician [facility] Start: 06-05-2022 Borrelia burgdorferi DNA assay [facility] Start: 06-05-2022 End: 06-05-2022 [facility] Start: 06-05-2022 [facility] Start: 06-04-2022 Referral to general office assistant [facility] Start: 06-04-2022 Referral to urologist [facility] Start: 06-02-2022 Hospital admission [facility] Start: 06-02-2022 Referral to neurologist [facility] Bacteria identified in Urine by Culture Urine culture Microbiology Routine Missed menses Ordered: 05/20/2024 [facility] Comment on above: Ordered: 05/20/2024 CBC W Auto Different ial panel - Blood CBC and differential Lab Routine Missed menses , unspecified gestational age Ordered: 05/20/2024 [facility] Comment on above: Ordered: 05/20/2024 CHLAMYDIA TRACHOMATI S (GENITO/STI) CHLAMYDIA TRACHOMATIS (GENITO/STI) Lab Routine STD exposure Ordered: 07/16/2024 [facility] Comment on above: Ordered: 07/16/2024 Cytology Cervical or vaginal smear or scraping study Pap Smear Pathology and Cytology Routine Well woman exam with routine gynecological exam Ordered: 07/16/2024 [facility] Comment on above: Ordered: 07/16/2024 Hemoglobin A1c/Hemoglobin.total in Blood Hemoglobin A1c Lab Routine Missed menses , unspecified gestational age Ordered: 05/20/2024 [facility] Comment on above: Ordered: 05/20/2024 Hepatitis B virus surface Ag [Presence] in Serum or Plasma by Immunoassay Hepatitis B surface antigen Lab Routine Missed menses , unspecified gestational age Ordered: 05/20/2024 [facility] Comment on above: Ordered: 05/20/2024 Hepatitis C virus Ab [Presence] in Serum or Plasma by Immunoassay Hepatitis C antibody Lab Routine Missed menses , unspecified gestational age Ordered: 05/20/2024 [facility] Comment on above: Ordered: 05/20/2024 HIV-1/HIV-2 antigen/antibody combination immunoassay HIV-1 and HIV-2 antibodies Lab Routine Missed menses , unspecified gestational age Ordered: 05/20/2024 [facility] Comment on above: Ordered: 05/20/2024 IgG [Mass/volume] in Serum or Plasma [facility] Neisseria gonorrhoea e DNA [Presence] in Unspecified specimen by TERESA with probe detection Neisseria gonorrhea DNA probe, direct Lab Routine STD exposure Ordered: 07/16/2024 [facility] Comment on above: Ordered: 07/16/2024 Patient Education [facility] Work Phone: Patient referral [facility] Work Phone: Protein fractions.oligoclonal bands.intrathecal [Presence] in Serum and CSF [facility] Reagin Ab [Presence] in Serum by RPR RPR Lab Routine Missed menses , unspecified gestational age Ordered: 05/20/2024 [facility] Comment on above: Ordered: 05/20/2024 Rubella antibody, IgG Rubella an tibody, IgG Lab Routine Missed menses , unspecified gestational age Ordered: 05/20/2024 [facility] Comment on above: Ordered: 05/20/2024 SURESWAB(R) ADVANCED VAGINITIS PLUS, TMA SURESWAB(R) ADVANCED VAGINITIS PLUS, TMA Pathology and Cytology Routine Vaginal discharge Ordered: 07/16/2024 [facility] Work Phone: Comment on above: Ordered: 07/16/2024 URINARY TRACT INFECT ION (HTRX) URINARY TRACT INFECTION (HTRX) Lab Routine Dysuria Ordered: 04/08/2024 [facility] Work Phone: Comment on above: Ordered: 04/08/2024 Payers Date Payer Category Payer Self-pay [id number] 2023 Medicaid [id number] 2022 Medicaid [id number] 2003 Unknown [id number] 2.16.84 [id number] 2003 Unknown [id number] 2.16.8 [id number] 2003 Unknown [id number] 2.16.84 [id number] 2003 Unknown [id number] 2.16.84 0.1.095778.3.579.2.1259 2003 Unknown [id number] 2.16.84 0.1.052209.3.579.2.1259 2003 Unknown [id number] 2.16.84 0.1.061916.3.579.2.1259 2003 Unknown [id number] 2.16.84 0.1.820956.3.579.2.1259 2003 Unknown [id number] 2.16.84 0.1.121315.3.579.2.1259 2003 Unknown [id number] 2.16.84 [id number] 2003 Unknown [id number] 2.16.84 0.1.036318.3.579.2.1259 2003 Unknown [id number] 2.16.84 [id number] Unknown [id number] 2.1 [id number] Unknown [id number] 2.16.8 [id number] Social History Date Type Detail Facility Start: 02-11-2024 End: 04-08-2024 Sex Assigned At [employer] Other Start: 07-01-2020 End: 12-22-2022 Tobacco smoking status Never smoked tobacco (finding) [facility] Tobacco smoking status Never [facility] Start: 2005 Sex Assigned At Female [facility] Start: 12-22-2022 Tobacco use and exposure Smokeless tobacco non-user [facility] Start: 04-08-2024 End: 07-16-2024 Alcoholic beverage intake Lifetime non-drinker (finding) [facility] Start: 02-11-2024 End: 04-08-2024 History of Social function [facility] Start: 12-22-2022 Alcohol Comment Caffeine: 1-2 cups/day tea, chocolate [facility] Start: 12-24-2022 Gender identity Identifies as female gender (finding) [facility] Start: 12-24-2022 Sexual orientation Heterosexual (finding) [facility] Start: 03-18-2024 [facility] Functional Status Date Assessment Result Facility 10-28-2023 Functional Status N/A [facility] 06-15-2022 Functional Status N/A [facility] 06-09-2022 Functional status Patient at Baseline [facility] Work Phone: 05-24-2022 Functional Status N/A [facility] Mental Status Date Assessment Result Facility 06-09-2022 Cognitive function Cognitive Sta tus Patient at Baseline [facility] Work Phone: Clinical Notes 09-13-2021 to 07-16-2024 DANNI Rodgers - 07/16/2024 10:30 AM Gary Emery LPN - 06/17/2024 11:10 AM Sandy Rios MA - 05/20/2024 10:00 AM Gary Emery LPN - 04/15/2024 10:20 AM ESTPatient Instructions Note Date & Type Note Facility 07-16-2024 History of Presen t illness Narrative Reason for Appointment: Patient ID: Heena Wang is a 19 y.o. female who presents for Routine Visit, Well Women Visit, and STI Screening Patient presents today for Annual Exam. and Return OB appointment. MEDICATIONS Current Outpatient Medications [...] Grandmother Aure Starr Cancer Maternal Grandmother Aure Deajorge Cancer Maternal Grandfather Stepan Wang Cancer Paternal Grandmother Izzy Gutiérrez SURGICAL HISTORY Past Surgical History: Procedure Laterality Date INNER EAR SURGERY 2005 tubes in ears KNEE CARTILAGE SURGERY Right 02/01/2024 [facility] OTHER SURGICAL HISTORY 2004 adnoidectomy REVIEW OF SYSTEMS Review of Systems: Review of Systems Constitutional: Negative. HENT: Negative. Eyes: Negative. Respiratory: Negative. Cardiovascular: Negative. Gastrointestinal: Negative. Genitourinary: Negative. Musculoskeletal: Negative. Skin: Negative. Neurological: Negative. All other systems reviewed and are negative. Hematological: Negative. Endocrine: Negative. Allergic/Immunologic: Negative. OBJECTIVE Objective: Physical Exam Constitutional: Appearance: Normal appearance. She is normal weight. HENT: Head: Normocephalic. Cardiovascular: Rate and Rhythm: Normal rate. Pulses: Normal pulses. Pulmonary: Effort: Pulmonary effort is normal. Breath sounds: Normal breath sounds. Abdominal: Palpations: Abdomen is soft. Musculoskeletal: General: Normal range of motion. Neurological: General: No focal deficit present. Mental Status: She is alert and oriented to person, place, and time. Psychiatric: Mood and Affect: Mood normal. Behavior: Behavior normal. Thought Content: Thought content normal. Judgment: Judgment normal. Vitals and nursing note reviewed. Vitals: Estimated body mass index is 25.11 kg/m as calculated from the following: Height as of 02/11/24: 5' 10 . Weight as of this encounter: 175 lb. BP: 114/66 No LMP recorded. Patient is . ASSESSMENT & PLAN ICD-10-CM 1. Well woman exam with routine gynecological exam Z01.419 Pap Smear 2. Second trimester Z34.92 POCT urinalysis dipstick manually resulted Alpha fetoprotein, maternal Alpha fetoprotein, maternal 3. 19 weeks gestation of Z3A.19 POCT urinalysis dipstick manually resulted Alpha fetoprotein, maternal Alpha fetoprotein, maternal 4. Vaginal discharge N89.8 SURESWAB(R) ADVANCED VAGINITIS PLUS, TMA 5. STD exposure Z20.2 CHLAMYDIA TRACHOMATIS (GENITO/STI) Neisseria gonorrhea DNA probe, direct 6. Screening, , for anatomic survey Z36.89 US OB 14+ weeks anatomy scan US OB 14+ weeks anatomy scan Return OB/Annual Exam: Patient presents today for an annual exam/routine obstetrics appointment. Patient is currently 19w1d . Patient is doing well and states she has no complaints. Pap/cultures was obtained without difficulty and patient was given [facility] order to have obtained. Orders Placed This Encounter Procedures US OB 14+ weeks anatomy scan CHLAMYDIA TRACHOMATIS (GENITO/STI) Neisseria gonorrhea DNA probe, direct Alpha fetoprotein, maternal POCT urinalysis dipstick manually resulted Follow Up: Patient is to return to our office in 4 weeks for routine OB appointment Documented by DANNI Rodgers on behalf of: DANNI Rodgers documented in this encounter [facility] 06-17-2024 History of Presen t illness Narrative [...] SURGERY Right 02/01/2024 Arthroscopy w/ MTP @ [facility] OTHER SURGICAL HISTORY 2004 adnoidectomy REVIEW OF [...] nursing note reviewed. Exam conducted with a welding technician present. Vitals: Estimated body mass index is [...] or undercooked meat, and stay away from [facility]. Patient has been consulted regarding any further do's and don'ts of . Patient voiced understanding and all questions and concerns were answered. Orders Placed This Encounter Procedures POCT urinalysis dipstick manually resulted Follow Up: Patient is to return in 4 weeks for routine OB appointment. Documented by Su Emery LPN on behalf of: Benji Leung DO documented in this encounter [facility] 05-20-2024 History of Presen t illness Narrative [...] Father Diabetes Brother Hypertension Maternal Grandmother Aure Walkerh Cancer Maternal Grandmother Aure Dearth Cancer Maternal Grandfather Stepan Wang Cancer Paternal Grandmother Izzy Priceado Social History Tobacco Use Smoking status: Never Smokeless tobacco: Never Vaping Use Vaping status: Never Used Substance Use Topics Alcohol use: Never Comment: Caffeine: 1-2 cups/day tea, chocolate Drug use: Never Past Surgical History: Procedure Laterality Date INNER EAR SURGERY 2005 tubes in ears KNEE CARTILAGE SURGERY Right 02/01/2024 Arthroscopy w/ MTP @ [facility] OTHER SURGICAL HISTORY 2004 adnoidectomy No Known [...] or undercooked meat, and stay away from [facility]. Patient has also been advised to not change litter boxes and eat 6 small meals a day. Patient has been consulted regarding the do's and don'ts of . Patient was given labs and all questions and concerns were answered. Follow Up: Patient is to return in 4 weeks for routine OB appointment. Order was sent to [facility] for zofran pump. Pt aware of [facility] reaching out to set up an at home visit. Follow Up: Patient is to have labs drawn at directed and return to office for initial OB appointment with provider. Patient may call office as needed with any concerns or questions. Nurse Visit Completed by: Georgie Rios MA documented in this encounter [facility] 04-15-2024 History of Presen t illness Narrative [...] SURGERY Right 02/01/2024 Arthroscopy w/ MTP @ [facility] OTHER SURGICAL HISTORY 2004 adnoidectomy REVIEW OF [...] nursing note reviewed. Exam conducted with a welding technician present. Vitals: Estimated body mass index is [...] Benji Leung DO documented in this encounter [facility] 04-08-2024 History of Presen t illness Narrative Images from the original note were not included. [address], [address] [facility], [address] P: [phone] F: [phone] HPI Historian of HPI: patient Heena Wang [...] capsule; Refill: 0 documented in this encounter [facility] 02-11-2024 History of Presen t illness Narrative [...] use for discomfort. documented in this encounter [facility] 02-11-2024 Instructions DANNI Judd - 02/11/2024 10:00 [...] use for discomfort. documented in this encounter [facility] 10-28-2023 Hospital Discharg e instructions Patient Education [...] sitting or lying down. General instructions Take bdfn-tfv-dkervkd and prescription medicines only as told by [...] provider. Document Revised: 08/14/2022 Document Reviewed: 03/26/2020 [employer] Patient Education 2022 [employer] 10/28/2023 12:35:22 How to Use a Knee [...] provider. Document Revised: 02/10/2022 Document Reviewed: 02/10/2022 [employer] Patient Education 2022 [employer] 10/28/2023 12:35:22 Radial Nerve Palsy Radial [...] provider. Document Revised: 06/29/2021 Document Reviewed: 06/29/2021 [employer] Patient Education 2022 [employer] 10/28/2023 12:35:22 Crutch Use, Adult, Dyur-nu-Zkmu Crutch Use, Adult Crutches are used to [...] you. Keep your weight over the hand board of education secretary. 3.Bring the good leg forward to meet the crutches or to land a little bit ahead of them. 4.Repeat. Going up steps If there is no handrail: 1.Walk up to steps and put weight on hand board of education secretary to step up. 2.Step up with your [...] provider. Document Revised: 11/26/2019 Document Reviewed: 11/26/2019 [employer] Patient Education 2022 [employer]. Follow Up Care 10/28/2023 11:08:54 With:Rayne Rivera Address: [address] [place] [phone] Business (1) When:10/31/2023 12:11:58 With:MORRO HAUSER Address: [address] [place] [phone] Business (1) When:Within 3 Day(s) [facility] 03-02-2023 Evaluation note Encounter Date Diagnosis [...] 3 days. May return to work tomorrow [employer] Other 01-26-2023 Hospital Discharge instructions Patient Education 06/15/2022 09:22:12 Acute Urinary Retention, Female, Zvje-wa-Fwsm Acute Urinary Retention, Female Acute urinary retention means that you cannot pee (urinate) at all, or that you pee too little and your bladder is not emptied completely. If it is not treated, it can lead to kidney damage or other serious problems. Follow these instructions at home: Take nnpx-xzk-mrxektj and prescription medicines only as told by [...] 10/23/2008 Document Revised: 04/19/2018 Document Reviewed: 06/08/2017 [employer] Patient Education 2020 [employer] Follow Up Care 06/07/2022 11:50:23 With:Iman Gomez MD, URL, URO Address: When: Unknown [facility] 01-25-2023 Evaluation note* Encounter Date [...] of care between Inpatient setting and outpatient COUNSELING PSYCHOLOGIST office. Mother confirms that she did schedule [...] that were not corrected during review process. [employer] Other 01-20-2023 Progress note Author Kt Pearson [facility] June 09, 2022 3:41pm Note Date/Time June 09, 2022 3 :42pm [facility] [address] [place] [address] Neurology Progress Note Signed Patient: Heena Wang MR#: [id number] : 2005 Acct:[id number] Age/Sex: 17 / F Adm Date: 3 Loc: Room: [address] [place] [address] Type: ADM IN Attending Dr: Melo Daina MD Copies to: ~ Date of Service: [...] she went to get checked out at [facility].? She was also experiencing tingling [...] signed by Kt Pearson DO> 06/09/22 1541 [facility] Work Phone: 1(641) 821-581101-19-2023 Progress note Author Kt Pearson [facility] June 08, 2022 3:35pm Note Date/Time June 08, 2022 7 :41am [facility] [address] [place] [address] Neurology Progress Note Signed Patient: Heena Wang MR#: [id number] : 2005 Acct:[id number] Age/Sex: 17 / F Adm Date: 3 Loc: Room: [address] [place] [address] Type: ADM IN Attending Dr: Melo Diana [...] level noted with pinprick CEREBELLAR EXAM: * Uuynun-mb-gpzi and alternating movements are intact and normal in bilateral upper extremities * Qyzf-lk-hpdd and alternating movements are intact and normal [...] she went to get checked out at [facility].? She was also experiencing tingling [...] 1535 <Electronically signed by RHIANNON Avery> 06/08/22 1112 [facility] Work Phone: 1(646) 514-626001-19-2023 Progress note Author Melo Diana [facility] June 08, 2022 10:23am Note Date/Time June 08, 2022 1 0:11am [facility] [address] [place] [address] Hospitalist Progress Note Signed Patient: Heena Wang MR#: [id number] : 2005 Acct:[id number] Age/Sex: 17 / F Adm Date: 3 Loc: 3T Room: [address] [place] [address] Type: ADM IN Attending Dr: Melo Diana [...] 18:05 06/06/22 18:10 Bisacodyl 10 Mg Supp.Rect WI 06/06/23 18:04 10 mg DAILY PRN Administration [...] Rodas catheter placement, and 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 Paresthesias have improved more significantly today. Suspect an autoimmune or demyelinating process given findings on MRI brain in cervical and thoracic spine. Unclear how much patient's neurologic complaints are related to this Herpes [employer]ER TENDER infection. Lumbar puncture results: Lymphocytic pleocytosis, +HSV2 [...] than 0.2, Zamora IgG less than 0.2, BELL MAKER 0.2, scleroderma 0.2, Anti-MOG pending. -CSF albumin, [...] signed by Melo Diana MD> 06/08/22 1023 [facility] Work Phone: 1(758) 199-133401-19-2023 Progress note Author Melo Diana [facility] June 07, 2022 10:30pm Note Date/Time June 07, 2022 9 :03am [facility] [address] [place] [address] Hospitalist Progress Note Signed Patient: Heena Wang MR#: [id number] : 2005 Acct:[id number] Age/Sex: 17 / F Adm Date: 3 Loc: Room: [address] [place] [address] Type: ADM IN Attending Dr: Melo Diana [...] Dose Route Start Last Admin Trade Name Willq PRN Reason Stop Dose Admin Acetaminophen 650 mg 06/02/22 21:44 06/06/22 11:30 Acetaminophen 325 Mg Tablet PO 06/02/23 21:43 650 mg Q6HR PRN Administration Pain Scale 1 - 3 or fever Bisacodyl 10 mg 06/06/22 18:05 06/06/22 18:10 Bisacodyl 10 Mg Supp.Rect WI 06/06/23 18:04 10 mg DAILY PRN Administration [...] Rodas catheter placement, and 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 Paresthesias have mildly improved, have moved down from the region of her umbilicus down to her ankle and foot region. Unclear how much patient's neurologic complaints are related to this Herpes STAVE PLANER TENDER infection. Lumbar puncture results: Clear, colorless fluid [...] than 0.2, Zamora IgG less than 0.2, BELL MAKER 0.2, scleroderma 0.2, Anti-MOG pending. -CSF albumin, [...] <Electronically signed by Melo Diana MD> 06/07/22 5042 [facility] Work Phone: 1(329) 345-684901-18-2023 Progress note Author Kt Pearson [facility] June 07, 2022 3:13pm Note Date/Time June 07, 2022 7 :38am [facility] [address] [place] [address] Neurology Progress Note Signed Patient: Heena Wang MR#: [id number] : 2005 Acct:[id number] Age/Sex: 17 / F Adm Date: 3 Loc: Room: [address] [place] [address] Type: ADM IN Attending Dr: Melo Diana [...] level noted with pinprick CEREBELLAR EXAM: * Fszyhx-du-lbhg and alternating movements are intact and normal in bilateral upper extremities * Oifs-gd-rgus and alternating movements are intact and normal [...] she went to get checked out at [facility].? She was also experiencing tingling [...] 1513 <Electronically signed by RHIANNON Avery> 06/07/22 1200 [facility] Work Phone: 1(475) 645-488701-17-2023 Progress note Author Melo Diana [facility] June 06, 2022 4:37pm Note Date/Time June 06, 2022 8 :26am [facility] [address] [place] [address] Hospitalist Progress Note Signed Patient: Heena Wang MR#: [id number] : 2005 Acct:[id number] Age/Sex: 17 / F Adm Date: 3 Loc: Room: [address] [place] [address] Type: ADM IN Attending Dr: Melo Diana [...] 500 Mg Tablet PO TID [facility] A&P - Hospitalist Assessment/Plan (1) Herpes simplex [...] Bilateral Paresthesia of the Lower Extremities HSV STAVE PLANER TENDER 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 Unclear how much patient's neurologic complaints are related to this Herpes STAVE PLANER TENDER infection. Lumbar puncture results: Clear, colorless fluid [...] -Immunology for: LIZZY, SS?A/Ro, SS-B/La, Zamora IgG, BELL MAKER, scleroderma pending -CSF albumin, oligoclonal IgG bands, [...] <Electronically signed by Melo Diana MD> 06/06/[address] [place] [address] Work Phone: 1(257) 803-631101-17-2023 Progress note Author Kt Pearson [facility] June 06, 2022 3:31pm Note Date/Time June 06, 2022 7 :55am [facility] [address] [place] [address] Neurology Progress Note Signed Patient: Heena Wang MR#: [id number] : 2005 Acct:[id number] Age/Sex: 17 / F Adm Date: 3 Loc: 3T Room: [address] [place] [address] Type: ADM IN Attending Dr: Melo Diana [...] level noted with pinprick CEREBELLAR EXAM: * Qnhyco-mm-uglc and alternating movements are intact and normal in bilateral upper extremities * Udqx-xq-tjxt and alternating movements are intact and normal [...] she went to get checked out at [facility].? She was also experiencing tingling [...] <Electronically signed by RHIANNON Avery> 06/06/22 0943 [facility] Work Phone: 1(647) 597-323501-17-2023 Consult note Author Rayne Vitale [facility] June 06, 2022 10:21am Note Date/Time June 06, 2022 1 0:09am [facility] [address] [place] [address] Infect. Disease Consult Note Signed Patient: Heena Wang MR#: [id number] : 2005 Acct:[id number] Age/Sex: 17 / F Adm Date: 3 Loc: 3T Room: [address] [place] [address] Type: ADM IN Attending Dr: Melo Diana [...] of time. She had seen at [facility] care and was given oral Flagyl and [...] negative unless noted below or in HPI [facility] Attestation Statement: The following information was [...] 100 Mg Capsule) 100 mg PO BID WILLIAM Stop: 06/04/23 20:59 Last Admin: 06/06/22 08:46 [...] Powd.Pack) 17 gm PO DAILY [facility] Stop: 06/04/23 19:44 Last Admin: 06/06/22 08:46 Dose: 17 gm Valacyclovir HCl (Valacyclovir 500 Mg Tablet) 1,000 mg PO TID [facility] Last Admin: 06/06/22 08:46 Dose: 1,000 mg [...] signed by MD Rayne Vitale> 06/06/22 1021 [facility] Work Phone: [phone]) 722-754101-16-2023 Progress note Author Melo Diana [facility] June 05, 2022 5:58pm Note Date/Time June 05, 2022 9 :00am [facility] [address] [place] [address] Hospitalist Progress Note Signed Patient: Heena Wang MR#: [id number] : 2005 Acct:[id number] Age/Sex: 17 / F Adm Date: 3 Loc: Room: [address] [place] [address] Type: ADM IN Attending Dr: Melo Diana [...] -Immunology for: LIZZY, SS?A/Ro, SS-B/La, Zamora IgG, BELL MAKER, scleroderma pending -Lumbar puncture results pending. Discussed [...] <Electronically signed by Melo Diana MD> 06/05/22 4992 [facility] Work Phone: [phone] 999-705501-16-2023 Progress note Author Kt Paerson [facility] June 05, 2022 5:19pm Note Date/Time June 05, 2022 9 :08am [facility] [address] [place] [address] Neurology Progress Note Signed Patient: Heena Wang MR#: [id number] : 2005 Acct:[id number] Age/Sex: 17 / F Adm Date: 3 Loc: Room: [address] [place] [address] Type: ADM IN Attending Dr: Melo Diana [...] level noted with pinprick CEREBELLAR EXAM: * Yltagm-ki-enqh and alternating movements are intact and normal in bilateral upper extremities * Lumt-yx-ibcc and alternating movements are intact and normal [...] she went to get checked out at [facility].? She was also experiencing tingling [...] <Electronically signed by Kt Pearson DO> 06/05/22 1629 <Electronically signed by RHIANNON Avery> 06/05/22 1048 [facility] Work Phone: [phone] 577-652401-16-2023 [facility] Progress note Author Ravi Zhang [facility] June 04, 2022 6:44pm Note Date/Time June 04, 2022 1 0:01am [facility] [address] [place] [address] Hospitalist Progress Note Signed Patient: Heena Wang MR#: [id number] : 2005 Acct:[id number] Age/Sex: 17 / F Adm Date: 3 Loc: Room: [address] [place] [address] Type: ADM IN Attending Dr: Ravi Zhang [...] signed by Ravi Zhang DO> 06/04/22 1844 [facility] Work Phone: 1(216) 759-696101-15-2023 Consult note Author Isaías Pan [facility] June 04, 2022 2:39pm Note Date/Time June 04, 2022 2 :19pm [facility] [address] [place] [address] COUNSELING PSYCHOLOGIST Consult Note Signed Patient: Heena Wang MR#: [id number] : 2005 Acct:[id number] Age/Sex: 17 / F Adm Date: 3 Loc: Room: [address] [place] [address] Type: ADM IN Attending Dr: Ravi Zhang [...] symptoms in the past that resemble this. [facility] Vaccinated for [facility]-19?: Yes [...] Tablet) 1,000 mg PO BID [facility] CHILD DEVELOPMENT ASSISTANT - Exam Physical Exam Vital signs: Temp [...] lymph nodes. Lower extremities showed no edema. CHILD DEVELOPMENT ASSISTANT - Results Laboratory Results - Last 48 [...] % (Auto) 45.7, Lymph % (Auto) 42.0, Josephine % (Auto) 9.4, Eos % (Auto) 0.9, Baso % (Auto) 2.0, Nucleat RBC Rel Count 0.3, Neut # (Auto) 3.1, Lymph # (Auto) 2.9, Josephine # (Auto) 0.6, Eos # (Auto) 0.1, Baso # (Auto) 0.1, ESR 26 H Microbiology - Results from entire visit 06/04/22 12:05 Vaginal Fungal Smear - Final 06/04/22 12:05 Vaginal Trichomonas [place] - Final CHILD DEVELOPMENT ASSISTANT - A/P (1) Acute urinary retention: Code(s): [...] obtained Documented By: Isaías Pan DO 06/04/22 5231 Signed By: <Electronically signed by Isaías Pan DO> 06/04/22 2152 [facility] Work Phone: 1([phone] 548-893201-15-2023 Consult note Author Iman Gomez [facility] June 04, 2022 1:38pm Note Date/Time June 04, 2022 1 1:04am [facility] [address] [place], [place] [id number] Urology Consult Note Signed Patient: Heena Wang MR#: [id number] : 2005 Acct:[id number] Age/Sex: 17 / F Adm Date: 3 Loc: Room: [address] [place] [address] Type: ADM IN Attending Dr: Ravi Zhang DO Copies to: WINNIE Thomas MD Kristopher L Lindbloom, DO~ History of Present Illness Consult Details Consult Date: 06/04/2022 Reason for Urology Consult: Urinary retention Requesting Provider: Ravi Zhang DO HPI: 17 year old healthy female transferred from outside hospital to [facility] on 06/02/2022 with acute urinary retention [...] has not beendiagnosed with PCOS, no prior CHILD DEVELOPMENT ASSISTANT evaluation. Has appointment this week. Her paresthesias [...] % (Auto) 45.7, Lymph % (Auto) 42.0, Josephine % (Auto) 9.4, Eos % (Auto) 0.9, Baso % (Auto) 2.0, Nucleat RBC Rel Count 0.3, Neut # (Auto) 3.1, Lymph # (Auto) 2.9, Josephine # (Auto) 0.6, Eos # (Auto) 0.1, [...] Neurologic evaluation negative. Patient was down with COUNSELING PSYCHOLOGIST getting examined due to swollen and painful [...] <Electronically signed by Iman Gomez MD> 06/04/22 1338 [facility] Work Phone: [phone] 582-993201-15-2023 Progress note Author Kt Pearson [facility] June 04, 2022 11:43am Note Date/Time June 04, 2022 1 1:43am [facility] [address] [place] [address] Neurology Progress Note Signed Patient: Heena Wang MR#: [id number] : 2005 Acct:[id number] Age/Sex: 17 / F Adm Date: 3 Loc: Room: [address] [place] [address] Type: ADM IN Attending Dr: Ravi Zhang [...] signed by Kt Pearson DO> 06/04/22 1143 [facility] Work Phone: [phone] 255-923201-14-2023 Progress note Author Ravi Zhang [facility] June 03, 2022 6:07pm Note Date/Time June 03, 2022 6 :07pm [facility] [address] [place], [place] [address] Hospitalist Progress Note Signed Patient: Heena Wang MR#: [id number] : 2005 Acct:[id number] Age/Sex: 17 / F Adm Date: 3 Loc: 3T Room: [address] [place] [address] Type: ADM IN Attending Dr: Ravi Zhang [...] <Electronically signed by Ravi Zhang DO> 06/03/221806 [facility] Work Phone: 1(187) 720-216101-14-2023 Consult note Author Kt Pearson [facility] June 03, 2022 12:02pm Note Date/Time June 03, 2022 1 0:02am [facility] [address] [place] [address] Neurology Consult Note Signed Patient: Heena Wang MR#: [id number] : 2005 Acct:[id number] Age/Sex: 17 / F Adm Date: 3 Loc: Room: [address] [place] [address] Type: ADM IN Attending Dr: Ravi Zhang DO Copies to: DO Morro Lopez APRN Kristopher L Lindbloom, DO~ HPI Consult Date: 06/03/22 Rn Family: Kt Pearson, DO [facility] Vaccinated for COVID-19?: Yes Social History Smoking [...] woman with history of scoliosis. Works at [employer]. After not being able to urinate for 8+ hours she went to get checked out at [facility]. She was also experiencing tingling [...] <Electronically signed by Kt Pearson DO> 06/03/22 4577 [facility] Work Phone: [phone] 821-725401-13-2023 History and physical note Author Ravi Zhang [facility] June 02, 2022 9:44pm Note Date/Time June 02, 2022 9 :44pm [facility] [address] [place] [address] Hospitalist H&P Signed Patient: Heena Wang MR#: [id number] : 2005 Acct:[id number] Age/Sex: 17 / F Adm Date: 3 Loc: Room: [address] [place] [address] Type: ADM IN Attending Dr: Ravi Zhang [...] except as mentioned elsewhere in the documentation. [facility] Attestation Statement: The following information was [...] and equal bilaterally. Lower extremities: She describes fwuc-iud-picspkl type paresthesias all the way from the [...] <Electronically signed by Ravi Zhang DO> 06/02/222143 [facility] Work Phone: [phone] 139-244901-04-2023 Hospital Discharge instructions Follow Up Care 05/24/2022 14:39:56 With:MORRO HAUSER CNP Address: [address] [place] [address] [place] [address]- When: Unknown [facility] 01-01-2023 History general Narrative [...] 2004 Surgical History Adenoidectomy 2004 Surgical History Rdoas catheter placement 023 Hospitalization History [facility] - Viral men ingitis, urinary retention 06/02 - 06/09 2022 [employer] Other 01-01-2023 History general Narrative - Reported* [...] History Rodas catheter placement 023 Hospitalization History [facility] - Viral men ingitis, urinary retention 06/02 - 06/09 2022 [employer] Other 08-18-2022 Evaluation note* Encounter Date Diagnosis [...] that were not corrected during review process. [employer] Other 07-07-2022 Evaluation note* Encounter Date Diagnosis Assessment Notes Treatment Notes Treatment Clinical Notes Nov, Exposure to COVID-19 virus (ICD-10 - Z20.822) [employer] Other 07-05-2022 Evaluation note* Encounter Date Diagnosis [...] continue medication, discontinuing medication or follow-up with COUNSELING PSYCHOLOGIST.I did explain that there are other underlying pathologies that can cause painful cramping. This work-up and diagnosis would need to be done by COUNSELING PSYCHOLOGIST especially due to her age.Patient verbalizes understanding and will let me know if she would like to continue the control or not. Nov, Other *Progress note was completed with the assistance of voice recognition software for dictation purposes. Please excuse any grammatical errors that were not corrected during review process. [employer] Other 04-26-2022 Evaluation note* Encounter Date Diagnosis [...] in 3 months for refills if desired. 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 Metronidazole adverse reaction acute Paresthesia of both lower extremities acute Primary vulvovaginal herpes simplex infection acute Vaginal discharge acute Vulvar ulceration acute [facility] Work Phone: Evaluation noteNo [employer] Other Evaluation noteNo assessment information available [facility] [employer] Work Phone: Evaluation note* Diagnosis Dysuria- Primary Acute cystitis without hematuria documented in this encounter [facility]* Diagnosis Encounter for surveillance of other contraceptive documented [facility] encounter [facility] Diagnosis Status post arthroscopy of right knee- Primary Other postprocedural status documented in this encounter [facility]* Diagnosis Missed menses 11 weeks gestation of , unspecified gestational age Encounter for supervision of normal first in first trimester documented in this encounter [facility]* Diagnosis Second trimester state, incidental 15 weeks gestation of documented in this encounter [facility]* Diagnosis Well woman exam with routine gynecological exam Routine gynecological examination Second trimester state, incidental 19 weeks gestation of Vaginal discharge Leukorrhea, not specified as infective STD exposure Screening, , for anatomic survey Encounter for anatomic survey documented in this encounter [facility] N[facility]ative - Reported* Type Description Date Medical History scoliosis Surgical History tubes in ears twice 2004 Surgical History adenoidectomy 2004 [employer] [facility] [employer] Other History general Narrative - Reported* Type Description Date Medical History scoliosis Medical History seasonal allergies Surgical History tubes in ears twice 2004 Surgical History adenoidectomy 2004 [employer] Other Hospital Discharge instructions No data available for this section [facility] Additional Instructions Maintain and routine care to rodas. Maintain rodas until you see Dr. Gomez and she gives you further orders.[facility] Work Phone: Progress note No data available for this section [facility] Chief Complaint and Reason for Visit [...] Referral Reason 07/26/22 @ 1:30pm [facility]ICOLE TR[facility]JILL[facility] SPECIFICALLY ; PATIENT'S MOTHER CLEARED WITH PROVIDER HERSELF PLEASE CONTACT MOTHER KEELY AT [phone] TO SCHEDULE Diagnosis 1 Anxiety (F41.9) Referral Organization [facility] Cathryn Llamas Referring Provider First Name Morro Referring Provider Last Name Talon Referring Provider Specialty Nurse Sera garcia Referred Organization [employer] Referred Address [address] [place], [place] Referred Provider Specialty Psychiatry Referral Priority Routine Referral Appointment Date 2022-07-26 General Notes Tricia Borjas M 023 02:12:31 PM >Received today and fax referral. [facility] Referral Dept will call patient and schedule Fore, Tricia M 06/21/2022 09:26:23 AM >Fax letter for appt update Tricia Borjas 06/27/2022 08:10:07 AM >Received letter back with appt Additional Source Comments REASON FOR VISIT (unrecogniz ed section and content) Reason Comments Post-op Rt knee scope MTP TS [facility] 02/01/24 Reason Comments Amenorrhea Reason Comments Routine Visit Reason Comments Routine Visit [facility] Visit STI Screening Patient Care team informatio n (unrecognized section [...] Active Samra Greenberg APRN Emergency Provider Active Intermodal Dispatcher Relationship Specialty Start Date End Date Morro Hauser MD [address] [place] [address] Primary Care Provider [facility] Medicine 01/11/23 Intermodal Dispatcher Relationship Specialty Start Date End Date Morro Hauser MD [address] [place] [address] [place] [address] Primary Care Provider [facility] Medicine 01/11/23 Intermodal Dispatcher Relationship Specialty Start Date End Date Morro Hauser MD [address] [place] [address] [place] [address] Primary Care Provider Family Medicine 01/11/23 Intermodal Dispatcher Relationship Specialty Start Date End Date Morro Hauser MD [address] [place] [address] [place] [address] Primary Care Provider Family Medicine 01/11/23 Intermodal Dispatcher Relationship Specialty Start Date End Date Morro Hauser MD [address] [place] [address] Primary Care Provider Family Medicine 01/11/23 Intermodal Dispatcher Relationship Specialty Start Date End Date Morro Hauser MD [address] [place] [address] Primary Care Provider Family Medicine 01/11/23 Intermodal Dispatcher Relationship Specialty Start Date End Date Morro Hauser MD [address] [place] [address] Primary Care Provider Family Medicine 01/11/23 Goals (unrecognized section and content) Goals may be documented in a n alternate section INFORMATION SOURCE (unrecogn ized section and content) DATE CREATED AUTHOR [facility]2022 [facility] DATE CREATED AUTHOR AUTHOR'S ORGANIZ ATION 11/22/2023 [facility] DATE CREATED AUTHOR AUTHOR'S ORGANIZ ATION 05/18/2024 [facility] DATE CREATED AUTHOR AUTHOR'S ORGANIZ ATION 07/18/2024 [facility] dical Specialists [facility] FOR RECORDS PERTAINING TO PATIENTS [...] BE BASED ON THE PRIMARY CLINICAL RECORDS. [employer] [facility]. provides no warranty or guarantee of the accuracy or completeness of information in this document.
== END 2024-07-23 07:04 | disposition home or self-care (01) ==
LOC: US 07:03
PROVIDERS: PCP Nurse Practitioner Family; Visit Provider Physician Assistant
DX: Z34.92 Encounter for supervision of normal pregnancy, unspecified, second trimester (principal); Z36.89 Encounter for other specified antenatal screening
CPT/HCPCS: 36415; 76805; 76817; 82105

== ENCOUNTER 2024-07-23 07:59 | Outpatient (OUT) | payer MEDICAID, SELFPAY ==
--- OUTSIDE RECORDS SUMMARY | 2024-07-23 08:06 | XMS_ITS | CCD ---
Author Organization [facility] Care Team Providers Care Machine Grinder Name Role Phone Morro Hauser Unavailable MORRO HAUSER Primary Care Physician DO Ravi Zhang Admit Provider WINNIE Hauser Primary Care Provider DO tK Pearson Other Provider DO Isaías Pan Other Provider MD Iman Gomez Other Provider MD Melo Diana Attending Provider MD Rayne Vitale Other Provider DR JOSÉ MIGUEL LAM V Consulting Unavailable MORRO HAUSER Primary Care Unavailable MADHU, DR VALVERDE Attending Unavailable MADHU, DR VALVERDE Admitting Unavailable MADHU, DR VALVERDE Consulting Unavailable WINNIE Hauser Primary Care Provider [phone]( [phone] WINNIE Greenberg Emergency Provider Racheal Greenberg Unavailable [...] 07, 2023 11:16am take 2 tablets by [facility] every eight hours valACYclovir HCl 500 MG 2 tablets Orally three times a day Active Completed/Discontinued Medications Medication Drug Class(es) Dates Sig (Normalized) Sig (Original) acetaminophen 325 mg / HYDROcodone bitartrate 5 mg oral tablet (2 sources) Opioid Agonist Start: 01-28-2024 End: 02-11-2024 take 1-2 tablets by mouth every four hours for pain HYDROcodone-acetam inophen ([place]) 5-325 MG tablet Indications: Acute traumatic internal [...] June 09, 2022 3:36pm polyethylene glycol 3350 78633 mg powder for oral solution (2 sources) [...] High,A-Abnormal,AA-Critical Abnormal Performed at: 01 =G [facility] [place] [address] [place] [address] Evelyn Arnold MD, IGP, RFX APTIMA HPV ASCU Note . [facility] Comment on above: TESTS RESULT FLAG UN ITS REF RANGE LAB DIAGNOSIS: 02 NEGATIVE FOR INTRAEPITHELIAL LESION OR MALIGNANCY. Specimen adequacy: 02 Satisfactory for evaluation. Endocervical and/or squamous metaplastic cells (endocervical component) are present. Performed by: 02 Corrine Espinosa, Engine Testing Supervisor ([facility]) . 02 Note: Note 03 The Pap [...] High,A-Abnormal,AA-Critical Abnormal Performed at: 02 KWCYT [facility] [place] [facility] [address] [place] [id number] Shad East MD, [address] [address] Evelyn Arnold MD, Performed at: = - [facility] [address] [id number] Pulmonary Care Nurse: Evelyn Arnold MD, Phone: [phone] Performed at: [facility] [address] [place], [place] [id number] Pulmonary Care Nurse: Shad East MD, Phone: [phone] SPATULA-ALONE CERVIX [facility] RECURRENT VAGINITIS (HTRX)on 07-17-2024 ATOPOBIUM VAGINAE 0 [facility] ATOPOBIUM VAGINAE Not detected [facility] BVAB 2,3 (BACTERIAL VAGINOSIS ASSOCIATED BACTERIA 2, 3); MOBILUNCUS SPP 0 [facility] BVAB 2,3 (BACTERIAL VAGINOSIS ASSOCIATED BACTERIA 2, 3); MOBILUNCUS SPP Not detected [facility] ISSAC ALBICANS, PARAPSILOSIS, TROPICALIS 0 [facility] ISSAC ALBICANS, PARAPSILOSIS, TROPICALIS Not detected [facility] ISSAC GLABRATA 0 [facility] ISSAC GLABRATA Not detected [facility] ISSAC KRUSEI 0 [facility] ISSAC KRUSEI Not detected [facility] CHLAMYDIA TRACHOMATIS 0 [facility] CHLAMYDIA TRACHOMATIS Not detected [facility] GARDNERELLA VAGINALIS 0 [facility] GARDNERELLA VAGINALIS Not detected N S [facility] Interpretation and review of laboratory results Abnormal [facility] Healthcare MEGASPHAERA (TYPES 1, 2) 28.119 Abnormal [facility] Healthcare MEGASPHAERA (TYPES 1, 2) Detected Abnormal [facility] MYCOPLASMA GENITALIUM 0 [facility] MYCOPLASMA GENITALIUM Not detected [facility] NEISSERIA GONORRHOEAE 0 [facility] NEISSERIA GONORRHOEAE Not detected [facility] TRICHOMONAS VAGINALIS 0 [facility] TRICHOMONAS VAGINALIS Not detected [facility] Urinalysis macro (dipstick) panel (U)on 07-16-2024 Bilirubin, UA Negative Negative - 4(70) +++ mg/dL [facility] Blood, UA Negative Negative - 50 Timmy/mcL [facility] Clarity, UA Clear [facility] Color, UA Yellow [facility] Glucose, UA Negative Negative - 2000(110) ++++ mg/dL [facility] Interpretation and review of laboratory results Abnormal [facility] Ketones, UA Positive Negative - 160(16) ++++ mg/dL [facility] Leukocytes, UA Negative Negative - 500+++ Hilda/mcL [facility] Nitrite, UA Negative Negative - Positive [facility] pH, UA 6.5 5 - 9 [facility] Protein, UA Negative Negative - 2000(20) ++++ mg/dL [facility] Spec Grav, UA 1.02 1 - 1.03 [facility] Urobilinogen, UA 1.0 0.2 - 12 mg/dL [facility] Urinalysis macro (dipstick) panel (U)on 06-17-2024 Bilirubin, UA Negative Negative - 4(70) +++ mg/dL [facility] Blood, UA Negative Negative - 50 Timmy/mcL [facility] Clarity, UA Clear [facility] Color, UA Yellow [facility] Glucose, UA Negative Negative - 1999(110) ++++ mg/dL [facility] Interpretation and review of laboratory results Abnormal [facility] Ketones, UA Positive Negative - 160(16) ++++ mg/dL [facility] Comment on above: 15 Leukocytes, UA Trace Negative - 500+++ Hilda/mcL [facility] Nitrite, UA Negative Negative - Positive [facility] pH, UA 8.5 5 - 9 [facility] Protein, UA Positive Negative - 2000(20) ++++ mg/dL [facility] Comment on above: 30 Spec Grav, UA 1.02 1 - 1.03 [facility] Urobilinogen, UA >=8.0 0.2 - 12 mg/dL [facility] BOX TESTon 06-04-2024 BOX TEST SENT OUT [facility] BOX1 [facility] BOX2 06/04/24 [facility] BOX [facility] HCG ( test) Ql (U)o n 05-20-2024 Interpretation and review of laboratory results Abnormal [facility] Preg Test, Ur Positive Negative [facility] Urine Cultureon 05-14-2024 Bacteria identified Cx Nom (U) 30,000 colonies/ml mixed bacterial skin contaminants 2 Days PERFORMED BY: [facility] [address] PATHOLOGIST PIT OPERATOR LIDIA Castro [facility] Comment on above: Performed By: #### C UU #### [facility] [address] Laboratory - Chemistry and C hemistry - challengeon 04-08-2024 Bilirubin Ql (U) 1+ Negative [facility] Glucose [Mass/Vol] Negative Negative [facility] Ketones Ql (U) Negative Negative [facility] pH (U) 7 [pH] 5.0 - 6.0 [facility] Specific gravity (U) [Rel density] 1.015 1.001 - 1.035 [facility] Laboratory - Hematology and Cell countson 04-08-2024 Hemoglobin Ql (U) + Negative [facility] Laboratory - Urinalysison Nitrite Ql (U) Negative Negative [facility] Protein Ql (U) 1+ Negative [facility] No Panel Informationon 04-08 Interpretation and review of laboratory results Abnormal [facility] Healthcare LEUKOCYTES 1+ Negative [facility] UROBILINOGEN 2+ 0.2 - 1.0 [facility] ED Note-Physicianon 10-29-19 ED Note-Physician [...] Rivera In 3 days 10/31/2023 EDT [address] [place] [address]- Business (1) Additional Instructions: MORRO HAUSER In 3 days [address] [place] [address]- [phone] Business (1) Additional Instructions: Patient Education Knee Sprain, Adult How to Use a Knee Immobilizer Radial Nerve Palsy Crutch Use, Adult, Bycv-jp-Bxna Attestation I performed a subst (more content not included)... [facility] Comment on above: Result Comment: Elec tronically Signed By: Alejandra Sun PA-C\.br\Date and Time Signed: 10/28/23 16:45 EDT\.br\Electronically Co-Signed By: Rupert Soriano DO\.ben\Date and Time Co-Signed: 10/29/23 08:08 EDT Consent for Treatmenton Consent for Treatment [id number] [facility] Discharge Instructionson Discharge Instructions [id number] [facility] ED Clinical Summaryon 2023 ED Clinical Summary (Inserted Image. Judith ble to display) [place] [id number] ED Clinical Summary Person Information Name: [facility] Age[facility] 18 [facility] : 2005 Sex: Female Language: Malawian PCP: MORRO HAUSER CNP Marital Status: Single [...] 10/28/2023 12:35:22 10/28/2023 12:35:22 10/28/2023 12:35:22 ADDRESS: [address] [place] [phone] PHYS DOC NOTES: MEDICAL INFORMATION: Prescriptions Given: PATIENT EDUCATION INFORMATION: Instructions: Knee Sprain, Adult; How to Use a Knee Immobilizer; Radial Nerve Palsy; Crutch Use, Adult, Wndx-gv-Cynx Follow up: With: Address: When: Rayne Rivera [address] [place] [id number] [employer] (1) In 3 days 10/31/2023 With: Address: When: [address] [phone] [employer] (1) In 3 days DIAGNOSIS: 1:Strain of right knee Normal [facility] ED Patient Education Noteon 10-28-2023 ED Patient [...] or lying down. General instructions ? Take ujva-fjc-rboebdd and prescription medicines only as told by [...] provider. Document Revised: 08/14/2022 Document Reviewed: 03/26/2020 [employer] Patient Education ? 2022 [employer] How to Use a Knee Immobilizer [...] by your (more content not included)... Normal [facility] ED Patient Summaryon 024 ED Patient Summary (Inserted Image. Judith ble to display) [facility] [address] [place], [place] [address] Patient Discharge Instructions Person Information Name: HEENA WANG Age: 18 Years Arrival Date: 10/28/2023 11:07:53 Discharge Diagnosis: 1:Strain of right knee Primary Care Physician: MORRO HAUSER CNP Provider Information Primary Provider: Rupert Soriano DO Advanced Supervisor Rough End:None The exam and treatment you received in the Emergency Department were for an urgent problem and are not intended as complete care. It is important that you follow up with a doctor, nurse practitioner, or physician?s maintenance assistant for ongoing care. If your symptoms [...] Instructions: With: Address: When: Rayne Rivera [address] [place] [address] Business (1) In 3 days 10/31/2023 With: Address: When: MORRO HAUSER [address] [place] [phone] [facility] (1) In 3 days In the event that this physician does not participate in your insurance network, please consult with your insurance company to find a nearby participating provider. Patient Education Materials: Knee Sprain, Adult; How to Use a Knee Immobilizer; Radial Nerve Palsy; Crutch Use, Adult, Asch-bd-Hvsh A MESSAGE TO ALL PATIENTS REGARDING OPIOIDS PRESCRIPTION OPIOIDS: WHAT YOU NEED TO KNOW Prescription opioids can be used to help relieve fsxvygeb-bw-elkdmz pain and are often prescribed following a [...] If y (more content not included)... Normal [facility] XR Knee Complete 4+ Views Mónica puri [...] mGy = na DAP = na Normal [facility] Quick Strepon 03-02-2023 S. pyogenes Org specific cx Ql (Throat) Negative Noteleaf Other Quick Strep [facility] Other US PELVISon 07-03-2022 US PELVIS EXAMINATION: [...] MIGUEL LAM Date: 2022-07-03 16:20 Normal [facility] Basophils Auto (Bld) [#/Vol] Ordered By: Melo Diana on 06-09-2022 Basophils (Bld) [#/Vol] 0.0 10*3/uL 0.0-0.2 [facility] Basophils/100 WBC Auto (Bld) Ordered By: Melokatie Diana on 06-09-2022 Basophils/100 WBC (Bld) 0.1 % . [facility] Creatinine and Glomerular fi ltration rate.predicted panel (S/P/Bld)Ordered By: Melo Diana on 06-09-2022 Creatinine [Mass/Vol] 0.61 mg/dL 0.44-1.03 [facility] Eosinophils Auto (Bld) [#/Vo l]Ordered By: Melokatie Diana on 06-09-2022 Eosinophils (Bld) [#/Vol] 0.0 10*3/uL 0.0-0.45 [facility] Eosinophils/100 WBC Auto (Bl d)Ordered By: Melokatie Diana on 06-09-2022 Eosinophils/100 WBC (Bld) 0.0 % . [facility] Erythrocyte distribution wid th Auto (RBC) [Ratio]Ordered By: Melo Diana on 06-09-2022 Erythrocyte distribution width (RBC) [Ratio] 13.3 % 11.9-15.3 [facility] Estimated glomerular filtrat ion rate (GFR) non- AmericanOrdered By: Melokatie Diana on 06-09-2022 GFR/1.73 sq M.predicted among non-blacks MDRD (S/P/Bld) [Vol rate/Area] > 60 mL/Min [facility] Hematocrit Auto (Bld) [Volum e fraction]Ordered By: Melokatie Diana on 06-09-2022 Hematocrit (Bld) [Volume fraction] 36.1 % 34.0-46.4 [facility] Hemoglobin [Mass/volume] in BloodOrdered By: Melokatie Diana on 06-09-2022 Hemoglobin (Bld) [Mass/Vol] 12.1 g/dL 11.8-15.4 [facility] Leukocytes [#/volume] correc gloria for nucleated erythrocytes in Blood by Automated counOrdered By: Melo Diana on 06-09-2022 WBC corrected for nucl RBC Auto (Bld) [#/Vol] 9.8 10*3/uL 3.8-11.6 [facility] Lymphocytes Auto (Bld) [#/Vo l]Ordered By: Melo Diana on 06-09-2022 Lymphocytes (Bld) [#/Vol] 1.6 10*3/uL 1.00-4.8 [facility] Lymphocytes/100 WBC Auto (Bl d)Ordered By: Melo Diana on 06-09-2022 Lymphocytes/100 WBC (Bld) 16.1 % . [facility] MCH Auto (RBC) [Entitic mass ]Ordered By: Melo Diana on 06-09-2022 MCH (RBC) [Entitic mass] 29.4 pg 24.7-34.3 [facility] MCHC Auto (RBC) [Mass/Vol]Or dered By: Melo Diana on 06-09-2022 MCHC (RBC) [Mass/Vol] 33.5 g/dL 32.0-35.0 [facility] MCV Auto (RBC) [Entitic vol] Ordered By: Melo Diana on 06-09-2022 MCV (RBC) [Entitic vol] 87.8 fL 80-100 [facility] Monocytes Auto (Bld) [#/Vol] Ordered By: Melo Diana on 06-09-2022 Monocytes (Bld) [#/Vol] 1.0 10*3/uL 0.0-0.8 [facility] Monocytes/100 WBC Auto (Bld) Ordered By: Melo Diana on 06-09-2022 Monocytes/100 WBC (Bld) 10.4 % . [facility] Neutrophils Auto (Bld) [#/Vo l]Ordered By: Melo Diana on 06-09-2022 Neutrophils (Bld) [#/Vol] 7.2 10*3/uL 1.8-7.7 [facility] Neutrophils/100 WBC Auto (Bl d)Ordered By: Melo Diana on 06-09-2022 Neutrophils/100 WBC (Bld) 73.4 % . [facility] No Panel InformationOrdered By: Melo Diana on 06-09-2022 Estimated GFR () > 60 mL/Min [facility] Comment on above: GFR estimated refere nce range: According to KDOQI guidelines, <60 ml/min/1.73m2 is sufficient to diagnose a patient with chronic kidney disease. Pharmacy Creatinine Clearance (Chem 181.95 [facility] Nucleated erythrocytes [Pres ence] in Blood by Automated countOrdered By: Melo Diana on 06-09-2022 Nucleated RBC Auto Ql (Bld) 0.1 /100{WBC} 0-0.5 [facility] Platelet mean volume Auto (B ld) [Entitic vol]Ordered By: Melo Diana on 06-09-2022 Platelet mean volume (Bld) [Entitic vol] 9.5 fL 6.3-10.7 [facility] Platelets Auto (Bld) [#/Vol] Ordered By: Melo Diana on 06-09-2022 Platelets (Bld) [#/Vol] 273 10*3/uL 150-450 [facility] RBC Auto (Bld) [#/Vol]Ordere d By: Melo Diana on 06-09-2022 RBC (Bld) [#/Vol] 4.11 10*6/uL 3.60-5.00 [facility] Serum or plasma anion gap de terminationOrdered By: Melo Diana on 06-09-2022 Anion gap [Moles/Vol] 11.8 mmol/L 6.0-15.0 [facility] Serum or plasma calcium dimoedes urement (mass/volume)Ordered By: Melo Diana on 06-09-2022 Calcium [Mass/Vol] 8.3 mg/dL 8.2-10.[address] [facility] Serum or plasma chloride omar surement (moles/volume)Ordered By: Melo Diana on 06-09-2022 Chloride [Moles/Vol] 98 mmol/L 95-114 [facility] Serum or plasma glucose diomedes urement (mass/volume)Ordered By: Melo Diana on 06-09-2022 Glucose [Mass/Vol] 97 mg/dL 70-[address] [facility] Comment on above: ADA recommended refe rence rangeRandom Glucose Reference Range is dependent on time and content of last meal. Glucose of more than 200 mg/dL in a nonstressed, ambulatory subject supports the diagnosis of Diabetes Mellitus. Serum or plasma potassium me asurement (moles/volume)Ordered By: Melo Diana on 06-09-2022 Potassium [Moles/Vol] 4.0 mmol/L 3.5-5.1 [facility] Serum or plasma sodium measu rement (moles/volume)Ordered By: eMlo Diana on 06-09-2022 Sodium [Moles/Vol] 132 mmol/L 136-[address] [facility] Serum or plasma total carbon dioxide measurement (moles/volume)Ordered By: Melo Diana on 06-09-2022 CO2 [Moles/Vol] 26.2 mmol/L 22.0-30.0 [facility] Serum or plasma urea nitroge n measurement (mass/volume)Ordered By: Melo Diana on 06-09-2022 Urea nitrogen [Mass/Vol] 11 mg/dL 9-23 [facility] WBC Auto (Bld) [#/Vol]Ordere d By: Melo Diana on 06-09-2022 WBC (Bld) [#/Vol] 9.8 10*3/uL 3.8-11.[address] [facility] Activated partial thrombopla stin time (aPTT) in platelet poor plasma by coagulation aOrdered By: Lorelei Avery on 06-05-2022 aPTT Coag (PPP) [Time] 32.1 s 25.1-36.5 [facility] Aerobic cultureOrdered By: Zehra Avery on 06-05-2022 Bacteria identified Aer cx Nom (Unsp spec) No Growth 2 Days [facility] Albumin [Mass/volume] in Cer ebral spinal fluidOrdered By: Lorelei Avery on 06-05-2022 Albumin (CSF) [Mass/Vol] 35 mg/dL 7-29 [facility] Albumin [Mass/volume] in Ser um or PlasmaOrdered By: Lorelei Avery on 06-05-2022 Albumin [Mass/Vol] 4.3 g/dL 3.9-5.[address] [facility] Anaerobic cultureOrdered By: Lorelei Avery on 06-05-2022 Bacteria identified Anaer cx Nom (Unsp spec) No Anaerobes Isolated 3 Days [facility] CSF IgG/albumin ratioOrdered By: Lorelei Avery on 06-05-2022 IgG/Albumin (CSF) [Mass ratio] 0.24 0.00-0.25 [facility] Cerebrospinal fluid IgG inde xOrdered By: Lorelei Avery on 06-05-2022 IgG clearance/Albumin clearance (S+CSF) [Ratio] 0.8 0.0-0.7 [facility] Cerebrospinal fluid eosinoph il percentageOrdered By: Lorelei Avery on 06-05-2022 Eosinophils/100 WBC (CSF) 0 % 0-0 [facility] Cerebrospinal fluid lymphocy te percentageOrdered By: Lorelei Avery on 06-05-2022 Lymphocytes/Leukocytes Manual cnt (CSF) [Pure # fraction] 87 % 40-80 [facility] Cerebrospinal fluid monocyte percentageOrdered By: Lorelei Avery on 06-05-2022 Monocytes/100 WBC (CSF) 9 % 15-45 [facility] Cerebrospinal fluid neutroph il percentageOrdered By: Lorelei Avery on 06-05-2022 Neutrophils/100 WBC (CSF) 4 % 0-6 [facility] Cerebrospinal fluid post-suraj trifugation appearance determinationOrdered By: Lorelei Avery on 06-05-2022 Appearance (Spun CSF) Colorless Colorless [facility] Cerebrospinal fluid sample t ube volume measurementOrdered By: Lorelei Avery on 06-05-2022 Specimen volume (CSF) 14.0 mL [facility] Color CSFOrdered By: Lorelei Avery on 06-05-2022 Color (CSF) Colorless Colorless [facility] Gram stain for investigation of transfusion reactionOrdered By: Lorelei Avery on 06-05-2022 Microscopic observation Gram stain Nom (Unsp spec) [facility] HIV 1 and HIV-2 antibody ass ay with HIV-1 p24 antigen detectionOrdered By: Lorelei Avery on 06-05-2022 HIV 1+2 Ab+HIV1 p24 Ag IA Ql Non-Reactive Non Reactive [facility] Comment on above: HIV NegativeHIV-1/HI V-2 antibodies and HIV-1 p24 antigen were NOTdetected. There is no laboratory evidence of HIV infection.Performed at: CB - [facility] [address] [id number] Director: Steve Fatima PhD, Phone: [phone] IgG [Mass/volume] in Cerebra l spinal fluidOrdered By: Lorelei Avery on 06-05-2022 IgG (CSF) [Mass/Vol] 8.3 mg/dL 0.0-6.7 [facility] IgG [Mass/volume] in Serum o r PlasmaOrdered By: Lorelei Avery on 06-05-2022 IgG [Mass/Vol] 1274 mg/dL 719-1475 [facility] IgG synthesis rate [Mass/mily e] in Serum and CSF by calculationOrdered By: Lorelei Avery on 06-05-2022 IgG synthesis rate Calc (S+CSF) [Mass/Time] 13.9 mg/day -9.9 TO +3.3 [facility] Comment on above: Performed at: CB - [facility] [address] [id number] Director: Steve Fatima PhD, Phone: [phone] Laboratory - CoagulationOrde red By: Lorelei Avery on 06-05-2022 PT Coag (PPP) [Time] 13.4 s 9.0-12.9 [facility] Manual cerebrospinal fluid e rythrocytes count (number/volume)Ordered By: Lorelei Avery on 06-05-2022 RBC Manual cnt (CSF) [#/Vol] 0 /uL [facility] Comment on above: The reference interv al and other method performance specifications have not been established for this body fluid. The test result must be integrated into the clinical context for interpretation. No Panel InformationOrdered By: Lorelei Avery on 06-05-2022 CSF Appearance Clear Clear [facility] CSF Glucose 46 mg/dL 40-70 [facility] CSF Total Protein 59 mg/dL 15-45 [facility] CSF Tube Number Tube number: 1 [facility] No Panel InformationOrdered By: Kt Pearson on 06-05-2022 Anti-Nuclear Antibody Comment 2 See comment . [facility] Comment on above: For more information about Hep-2 cell patterns useFilecubedpatterUlympix.AMResorts, the official website for the [employer] on Antinuclear Antibody (LIZZY) Patterns (ICAP). ----A positive LIZZY result may occur in healthy individuals (lowtiter) or be associated with a variety of diseases. Seeinterpretation chart which is not all inclusive:Pattern Antigen Detected Suggested Disease Association Homogeneous DNA(ds,ss), SLE - High titers Nucleosomes, Histones Drug-induced SLE Speckled Sm, EXTRUSION PRESS ADJUSTER, SCL-70, SLE,MCTD,PSS (diffuse form), SS-A/SS-B Sjogrens Nucleolar SCL-70, PM-1/SCL High titers Scleroderma, PM/DM Centromere Centromere PSS (limited form) w/Crest syndrome variable Nuclear Dot Sp100,[id number] Primary Biliary Cirrhosis Nuclear GP210, Primary Biliary CirrhosisMembrane miranda A,B,C Performed at: [facility] - [facility] [id number] Director: Steve Fatima PhD, Phone: [phone] EXTRUSION PRESS ADJUSTER Antibody 0.2 AI 0.0-0.9 [facility] Nucleated cells [#/volume] i n Cerebral spinal fluid by Manual countOrdered By: Lorelei Avery on 06-05-2022 Nucleated cells Manual cnt (CSF) [#/Vol] 0.16 10*3/uL 0-5 [facility] Comment on above: Critical valueresult calledat 1732 on 06/05/22 Platelet poor plasma interna tional normalized ratio (INR) by coagulation assay (relatOrdered By: Lorelei Avery on 06-05-2022 INR Coag (PPP) [Relative time] 1.2 {INR} [facility] Comment on above: INR Therapeutic [...] Ab IA Qn (S) 0.2 AI 0.0-0.9 [facility] Comment on above: Performed at: [employer] [place], [place] [id number] Director: Steve Fatima PhD, Phone: [phone] Serum Sjogrens syndrome-A ex tractable nuclear antibody assay (units/volume)Ordered By: Kt Pearson on 06-05-2022 Sjogrens syndrome-A extractable nuclear Ab Qn (S) 0.2 AI 0.0-0.9 [facility] Serum Sjogrens syndrome-B ex tractable nuclear antibody assay (units/volume)Ordered By: Kt Pearson on 06-05-2022 Sjogrens syndrome-B extractable nuclear Ab Qn (S) <0.2 AI 0.0-0.9 [facility] Serum Zamora extractable nucl ear antigen (HERNESTO) antibody assay (units/volume)Ordered By: Kt Pearson on 06-05-2022 Zamora extractable nuclear Ab Qn (S) <0.2 AI 0.0-0.9 [facility] Serum angiotensin converting enzyme (SUSIE) measurementOrdered By: Kt Pearson on 06-05-2022 Angiotensin converting enzyme [Catalytic activity/Vol] 26 U/L 14-82 [facility] Comment on above: Performed at: [employer] [place], [place] [id number] Director: Steve Fatima PhD, Phone: [phone] Serum homogeneous pattern an tinuclear antibody (LIZZY) titerOrdered By: Kt Pearson on 06-05-2022 Homogenous nuclear Ab pattern (S) [Titer] 1:160 . [facility] Comment on above: ICAP nomenclature: A C-1 Serum nuclear antibody titer Ordered By: Kt Pearson on 06-05-2022 Nuclear Ab (S) [Titer] Positive . [facility] Comment on above: Negative <1:80 Borde rline 1:80 Positive >1:80 Chlamydia trachomatis DNA [P resence] in Specimen by TERESA with probe detectionOrdered By: Isaías Pan on 06-04-2022 C. trachomatis DNA TERESA+probe Ql (Unsp spec) Negative Negative [facility] Fungal cultureOrdered By: Mónica Pan on 06-04-2022 Fungus identified Cx Nom (Unsp spec) [facility] Herpes simplex virus (HSV) c ulture with typingOrdered By: Isaías Pan on 06-04-2022 HSV identified Org specific cx Nom (Unsp spec) See comment . [facility] Comment on above: Positive for Herpes simplex virus type-2. Typing wasconfirmed by monoclonal antibody microscopicimmunofluorescence.Performed at: [address] [id number] Director: Steve Fatima PhD, Phone: [phone] Neisseria gonorrhoeae DNA [P resence] in Specimen by TERESA with probe detectionOrdered By: Isaías Pan on 06-04-2022 N. gonorrhoeae DNA TERESA+probe Ql (Unsp spec) Negative Negative [facility] Trichomonas vaginalis DNA [P resence] in Specimen by TERESA with probe detectionOrdered By: Isaías Pan on 06-04-2022 T. vaginalis DNA TERESA+probe Ql (Unsp spec) Negative Negative [facility] Comment on above: Performed at: [address] [id number] Director: Evelyn Arnold MD, Phone: [phone] Trichomonas vaginalis detect ion by wet preparationOrdered By: Isaías Pan on 06-04-2022 T. vaginalis Wet prep Ql (Unsp spec) [facility] Albumin [Mass/volume] in Ser um or PlasmaOrdered By: Ravi Zhang on 06-02-2022 Albumin [Mass/Vol] 3.5 g/dL 3.2-5.[address] [facility] C reactive protein [Mass/vol ume] in Serum or PlasmaOrdered By: Ravi Zhang on 06-02-2022 CRP [Mass/Vol] 0.6 mg/dL 0.0-1.0 [facility] Direct bilirubin measurement Ordered By: Ravi Zhang on 06-02-2022 Bilirubin.direct [Mass/Vol] 0.2 mg/dL 0.0-0.4 [facility] Erythrocyte sedimentation ra te by Photometric methodOrdered By: Ravi Zhang on 06-02-2022 ESR Photometric method (Bld) [Velocity] 26 mm/hr 0-19 [facility] Folate [Mass/volume] in Seru m or PlasmaOrdered By: Ravi Zhang on 06-02-2022 Folate [Mass/Vol] 16.6 ng/mL >5.9 [facility] Comment on above: Folate reference ran ge: >5.9 ng/mlThe WHO technical consultation on folate and vitamin [id number] has determined that folate concentrations lessthan 4 ng/ml are considered deficient. Globulin Calc (S) [Mass/Vol] Ordered By: Ravi Zhang on 06-02-2022 Globulin (S) [Mass/Vol] 3.7 g/dL [facility] Glucose mean value [Mass/vol ume] in Blood Estimated from glycated hemoglobinOrdered By: Ravi Zhang on 06-02-2022 Average glucose Estimated from glycated hemoglobin (Bld) [Mass/Vol] 103 mg/dL [facility] Hemoglobin A1c percentageOrd ered By: Ravi Zhang on 06-02-2022 HbA1c (Bld) [Mass fraction] 5.2 % 4.3-5.6 [facility] Comment on above: Increased risk for d iabetes: 5.7 - 6.4diabetes: >6.4glycemic control for adults with diabetes: <7.0 Laboratory - Chemistry and C hemistry - challengeOrdered By: Ravi Zhang on 06-02-2022 Cobalamin (Vitamin B12) [Mass/Vol] 368 pg/mL 180-914 [facility] Magnesium [Mass/Vol] 2.1 mg/dL 1.6-2.6 [facility] Phosphate [Mass/volume] in S [place] or PlasmaOrdered By: Ravi Zhang on 06-02-2022 Phosphate [Mass/Vol] 3.8 mg/dL 2.5-4.6 [facility] Protein [Mass/volume] in Ser um or PlasmaOrdered By: Ravi Zhang on 06-02-2022 Protein [Mass/Vol] 7.2 g/dL 6.1-7.[address] [facility] Serum or plasma alanine hooper otransferase measurement without P-5'-P (enzymatic activiOrdered By: Ravi Zhang on 06-02-2022 ALT No additional P-5'-P [Catalytic activity/Vol] 26 U/L 10-60 [facility] Serum or plasma albumin/glob ulin mass ratioOrdered By: Ravi Zhang on 06-02-2022 Albumin/Globulin [Mass ratio] 0.9 {ratio} [facility] Serum or plasma alkaline keven sphatase measurement (enzymatic activity/volume)Ordered By: Ravi Zhang on 06-02-2022 ALP [Catalytic activity/Vol] 60 U/L 32-92 [facility] Serum or plasma aspartate am inotransferase measurement (enzymatic activity/volume)Ordered By: Ravi Zhang on 06-02-2022 AST [Catalytic activity/Vol] 31 U/L 10-42 [facility] Serum or plasma non-glucuron idated bilirubin measurement (mass/volume)Ordered By: Ravi Zhang on 06-02-2022 Bilirubin.indirect [Mass/Vol] 0.7 mg/dL [facility] Serum or plasma thyroxine (T 4) measurement (mass/volume)Ordered By: Ravi Zhang on 06-02-2022 T4 [Mass/Vol] 9.70 ug/dL 5.39-11.82 [facility] Serum or plasma total biliru bin measurement (mass/volume)Ordered By: Ravi Zhang on 06-02-2022 Bilirubin [Mass/Vol] 0.9 mg/dL 0.3-1.2 [facility] TSH DL <= 0.005 mIU/L QnOrde red By: Ravi Zhang on 06-02-2022 TSH Qn 0.85 m[IU]/L 0.45-5.33 [facility] Thyroxine (T4) free [Mass/vo lume] in Serum or PlasmaOrdered By: Ravi Zhang on 06-02-2022 Free T4 [Mass/Vol] 0.96 ng/dL 0.61-1.[address] [facility] MICRO OTHER TESTSOrdered By: Sree Reeves [...] kg/m2 Susan RAZO Work Phone: [facility] 07-16-2024 10:52-0500 Body weight 79.38 kg Susan RAZO Work Phone: [facility] 07-16-2024 10:52-0500 Diastolic blood pressure 66 mm[Hg] Susan RAZO Work Phone: [facility] 07-16-2024 10:52-0500 Systolic blood pressure 114 mm[Hg] Susan RAZO Work Phone: [facility] 06-17-2024 11:34-0500 Body mass index (BMI) [Ratio] 24.39 kg/m2 Benji Madhu DO Work Phone: [facility] 06-17-2024 11:34-0500 Body weight 77.11 kg Benji Madhu DO Work Phone: [facility] 06-17-2024 11:34-0500 Diastolic blood pressure 62 mm[Hg] Benji Madhu DO Work Phone: [facility] 06-17-2024 11:34-0500 Systolic blood pressure 116 mm[Hg] Benji Syo DO Work Phone: [facility] 05-20-2024 10:23-0500 Body mass index (BMI) [Ratio] 23.82 kg/m2 [facility] Nurse [facility] 05-20-2024 10:23-0500 Body weight 75.3 kg [facility] Nurse [facility] 04-08-2024 18:25-0500 Body mass index (BMI) [Ratio] 26.54 kg/m2 Samra Maunabo DO Work Phone: [facility] 04-08-2024 18:25-0500 Body temperature 98.2 [degF] Samra Maunabo DO Work Phone: [facility] 04-08-2024 18:25-0500 Body weight 83.92 kg Samra Maunabo DO Work Phone: [facility] 04-08-2024 18:25-0500 Diastolic blood pressure 78 mm[Hg] Samra Maunabo DO Work Phone: [facility] 04-08-2024 18:25-0500 Heart rate 103 /min Samra Maunabo DO Work Phone: [facility] 04-08-2024 18:25-0500 SaO2% (BldA) [Mass fraction] 98 % Samra Maunabo DO Work Phone: [facility] 04-08-2024 18:25-0500 Systolic blood pressure 118 mm[Hg] Samra Maunabo DO Work Phone: [facility] 02-11-2024 10:00-0400 Body height 177.8 cm [facility] Work Phone: [facility] 02-11-2024 10:00-0400 Body mass index (BMI) [Ratio] 26.4 kg/m2 [facility] Work Phone: [facility] 02-11-2024 10:00-0400 Body weight 83.46 kg [facility] Work Phone: [facility] 10-28-2023 11:24-0400 Body temperature 98.42 [degF] Rupert Christie [facility] 10-28-2023 11:24-0400 Diastolic blood pressure 73 mm[Hg] Rupert Soriano [facility] 10-28-2023 11:24-0400 Heart rate 95 /min Rupert Soriano [facility] 10-28-2023 11:24-0400 Respiratory rate 16 /min Rupert Soriano [facility] 10-28-2023 11:24-0400 SaO2% (BldA) [Mass fraction] 100 % Rupert Soriano [facility] 10-28-2023 11:24-0400 Systolic blood pressure 131 mm[Hg] Rupert Soriano [facility] 03-02-2023 11:25-0400 Body height 176.53 cm Racheal Nñuezmond Other [facility] Other 03-02-2023 11:25-0400 Body mass index (BMI) [Ratio] 28.31 kg/m2 Racheal Yari Other [facility] Other 03-02-2023 11:25-0400 Body temperature 98.2 [degF] Racheal Yari Other [facility] Other 03-02-2023 11:25-0400 Body weight 88.23 kg Rachela Nuñezmond Other [facility] Other 03-02-2023 11:25-0400 Respiratory rate 18 /min Racheal Nuñezmond Other [facility] Other 03-02-2023 11:25-0400 SaO2% (BldA) [Mass fraction] 99 % Racheal Yari Other [id number] Other 01-07-2023 11:18-0400 Body height 182.88 cm [employer] Morro Easterwood Work Phone: [facility] 01-07-2023 11:18-0400 Body temperature 98.7 [degF] [employer] OPERATOR Morro Easterwood Work Phone: [facility] 01-07-2023 11:18-0400 Body weight 87.85 kg AUT[employer] OPERATOR Morro Easterwood Work Phone: [facility] 01-07-2023 11:18-0400 Diastolic blood pressure 93 mm[Hg] [employer]ATION OPERATOR Morro Easterwood Work Phone: [facility] 01-07-2023 11:18-0400 Heart rate 102 /min [employer] OPERATOR Morro Easterwood Work Phone: [facility] 01-07-2023 11:18-0400 Respiratory rate 20 /min [employer]ATION OPERATOR Morro Easterwood Work Phone: [facility] 01-07-2023 11:18-0400 SaO2% (BldA) [Mass fraction] 99 % [employer] OPERATOR Morro Easterwood Work Phone: [facility] 01-07-2023 11:18-0400 Systolic blood pressure 146 mm[Hg] [employer] OPERATOR Morro Easterwood Work Phone: [facility] 06-15-2022 08:13-0500 Blood Pressure Location Iman Lue [facility] 06-15-2022 08:13-0500 Diastolic blood pressure 88 mm[Hg] Iman Lue [facility] 06-15-2022 08:13-0500 Heart rate 93 /min Iman Lue [facility] 06-15-2022 08:13-0500 Systolic blood pressure 125 mm[Hg] Iman Lue [facility] 06-15-2022 08:13-0500 weight 1.73 Iman Lue [facility] Comment on above: Result Comment: ^~:!ZScore Source -[facility] 06-15-2022 08:13-0500 Weight Percentile 95.83 % Iman Lue [facility] Comment on above: Result Comment: ^~:!Percentile Source [facility] 06-14-2022 14:00-0500 Body height 176.53 cm [email or web address] Other [facility] Other 06-14-2022 14:00-0500 Body mass index (BMI) [Ratio] 26.49 kg/m2 [email or web address] Other [facility] Other 06-14-2022 14:00-0500 Body temperature 98.4 [degF] [email or web address] Other [facility] Other 06-14-2022 14:00-0500 Body weight 82.56 kg [email or web address] Other [facility] Other 06-14-2022 14:00-0500 Diastolic blood pressure 82 mm[Hg] Morro [employer] Other [facility] Other 06-14-2022 14:00-0500 Respiratory rate 20 /min [email or web address] Other [facility] Other 06-14-2022 14:00-0500 SaO2% (BldA) [Mass fraction] 98 % Morro Hauser Other [id number] Other 06-14-2022 14:00-0500 Systolic blood pressure 120 mm[Hg] Morro Hauser Other [facility] Other 06-09-2022 17:36-0500 Body temperature 97.8 [degF] DO Ravi Lindbloom Work Phone: [facility] 06-09-2022 17:36-0500 Diastolic blood pressure 65 mm[Hg] DO Ravi Lindbloom Work Phone: [facility] 06-09-2022 17:36-0500 Heart rate 78 /min DO Ravi Lindbloom Work Phone: [facility] 06-09-2022 17:36-0500 Respiratory rate 18 /min DO Ravi Lindbloom Work Phone: [facility] 06-09-2022 17:36-0500 SaO2% (BldA) [Mass fraction] 96 % DO Ravi Lindbloom Work Phone: [facility] 06-09-2022 17:36-0500 Systolic blood pressure 129 mm[Hg] DO Ravi Lindbloom Work Phone: [facility] 06-09-2022 03:16-0500 Body weight 83.2 kg DO Ravi Lindbloom Work Phone: [facility] 06-06-2022 13:58-0500 Body height 187.96 cm DO Ravi Lindbloom Work Phone: [facility] 05-24-2022 15:07-0500 Blood Pressure Location Loreto DONALDSON [facility] 01-04-2023 15:07-0500 Body temperature 98.06 [degF] Loreto DONALDSON [facility] 05-24-2022 15:07-0500 bodymassindex 0.85 Loreto DONALDSON [facility] Comment on above: Result Comment: ^~:!ZScore [facility] 05-24-2022 15:07-0500 Diastolic blood pressure 70 mm[Hg] Loreto DONALDSON [facility] 05-24-2022 15:07-0500 Heart rate 72 /min Loreto DONALDSON [facility] 05-24-2022 15:07-0500 Height/Length Percentile 99.82 Loreto DONALDSON [facility] Comment on above: Result Comment: ^~:!Percentile Source [facility] 05-24-2022 15:07-0500 Height/Length Z-Score 2.91 Loreto DONALDSON [facility] Comment on above: Result Comment: ^~:!ZScore [facility] 05-24-2022 15:07-0500 SaO2% (BldA) [Mass fraction] 99 % Loreto DONALDSON [facility] 05-24-2022 15:07-0500 Systolic blood pressure 110 mm[Hg] Loreto DONALDSON [facility] 05-24-2022 15:07-0500 weight 1.68 Loreto DONALDSON [facility] Comment on above: Result Comment: ^~:!ZScore [facility] 05-24-2022 15:07-0500 Weight Percentile 95.39 % Loreto DONALDSON [facility] Comment on above: Result Comment: ^~:!Percentile Source [facility] 01-05-2022 09:00-0400 Body height 176.53 cm Morro Easterwood Other [facility] Other 01-05-2022 09:00-0400 Body mass index (BMI) [Ratio] 26.34 kg/m2 Morro Easterwood Other [facility] Other 01-05-2022 09:00-0400 Body temperature 98 [degF] Morro Easterwood Other [facility] Other 01-05-2022 09:00-0400 Body weight 82.1 kg Morro Easterwood Other [facility] Other 01-05-2022 09:00-0400 Diastolic blood pressure 78 mm[Hg] Morro Easterwood Other [facility] Other 01-05-2022 09:00-0400 Respiratory rate 20 /min Morro Easterwood Other [facility] Other 01-05-2022 09:00-0400 SaO2% (BldA) [Mass fraction] 99 % Morro Easterwood Other [facility] Other 01-05-2022 09:00-0400 Systolic blood pressure 120 mm[Hg] Morro Easterwood Other [facility] Other 11-22-2021 11:30-0400 Body height 176.53 cm Morro Easterwood Other [facility] Other 11-22-2021 11:30-0400 Body mass index (BMI) [Ratio] 25.62 kg/m2 Morro Easterwood Other [facility] Other 11-22-2021 11:30-0400 Body temperature 98.1 [degF] Morro Easterwood Other [facility] Other 11-22-2021 11:30-0400 Body weight 79.83 kg Morro Easterwood Other [facility] Other 11-22-2021 11:30-0400 Diastolic blood pressure 80 mm[Hg] Morro Easterwood Other [facility] Other 11-22-2021 11:30-0400 Respiratory rate 20 /min Morro Easterwood Other [facility] Other 11-22-2021 11:30-0400 SaO2% (BldA) [Mass fraction] 99 % Morro Easterwood Other [facility] Other 11-22-2021 11:30-0400 Systolic blood pressure 120 mm[Hg] Morro Easterwood Other [facility] Other 09-13-2021 15:00-0400 Body height 176.53 cm Morro Easterwood Other [facility] Other 09-13-2021 15:00-0400 Body mass index (BMI) [Ratio] 25.76 kg/m2 Morro Easterwood Other [facility] Other 09-13-2021 15:00-0400 Body temperature 98.4 [degF] Morro Easterwood Other [facility] Other 09-13-2021 15:00-0400 Body weight 80.29 kg Morro Easterwood Other [facility] Other 09-13-2021 15:00-0400 Diastolic blood pressure 70 mm[Hg] Morro Hauser Other [facility] Other 09-13-2021 15:00-0400 Respiratory rate 20 /min Morro Hauser Other [facility] Other 09-13-2021 15:00-0400 SaO2% (BldA) [Mass fraction] 98 % Morro Hauser Other [facility] Other 09-13-2021 15:00-0400 Systolic blood pressure 108 mm[Hg] Morro Hauser Other [facility] Other Encounters Encounter Date Encounter Type Care [...] Start: 05-14-2024 End: 05-14-2024 ambulatory Percy Mendoza Facility:[facility] Start: 04-15-2024 End: 04-15-2024 Office outpatient visit 15 minutes Benji Madhu DO Work Phone: [facility] Comment on above: Encounter for survei llance of other contraceptive Start: 04-08-2024 End: 04-08-2024 ambulatory SAMRA L CUTLER Not Available Start: 04-08-2024 End: 04-08-2024 Office outpatient visit 15 minutes Samra L Maunabo DO Work Phone: [facility] Comment [...] 11-28-2023 Patient encounter procedure Sampson Taylor Ayala [facility] Start: 11-12-2023 End: 11-12-2023 ambulatory SAMPSON AYALA Not Available Start: 10-28-2023 End: 10-28-2023 Emergency department patient visit Rupert Soriano [facility] Start: 03-02-2023 End: 03-02-2023 ambulatory Racheal Greenberg Other [facility] Other Start: 03-02-2023 Office outpatient vi sit 15 minutes Racheal Greenberg [facility] Start: 01-07-2023 End: 01-07-2023 Emergency department patient visit WINNIE Hauser Work Phone: [facility] Work Phone: Start: 11-15-2022 End: 11-25-2022 Pre-admission assessment Carlin Fuentes [facility] Start: 08-16-2022 End: 08-16-2022 ambulatory Morro Pepitoerwood Other [facility] Other Start: 08-16-2022 Telephone encounter Morro Olmoswood [facility] Start: 07-03-2022 End: 07-04-[address] JOSÉ MIGUEL LAM Facility: Start: 06-15-2022 End: 06-15-2022 Patient encounter procedure Iman Gomez [facility] Start: 06-14-2022 End: 06-14-2022 ambulatory Morro Amariliswood Other [facility] Other Start: 06-14-2022 Office outpatient vi sit 40 minutes Morro Pepitoerwood [facility] Start: 06-09-2022 End: 06-09-2022 ambulatory Morro Pepitoerwood Other [facility] Other Start: 06-09-2022 Telephone encounter Morro Olmoswood [facility] Start: 06-02-2022 End: 06-09-2022 Evaluation and management of inpatient DO Ravi Zhang Work Phone: [facility] Work Phone: Start: 05-24-2022 End: 05-24-2022 Patient encounter procedure Loreto DONALDSON [facility] Start: 01-05-2022 End: 01-05-2022 ambulatory Morro Easterwood Other [facility] Other Start: 01-05-2022 Office outpatient vi sit 15 minutes Morro Easterwood [facility] Start: 11-24-2021 End: 11-24-2021 ambulatory Morro Easterwood Other [facility] Other Start: 11-24-2021 Telephone encounter Morro Hauser [facility] Start: 11-24-2021 End: 02-22-[address] [facility] Start: 11-22-2021 End: 11-22-2021 ambulatory Morro Hauser Other [facility] Other Start: 11-22-2021 [facility]: 09-13-2021 End: 09-13-2021 ambulatory Morro Hauser Other [facility] Other Start: 09-13-2021 [facility] Date Procedure Procedure Detail [...] AM EDT Routine [facility] [address] [place] [place] [address] Benji Leung, DO [address] [place] [address] [facility] Start: 07-16-2024 End: 07-16-2025 Alpha fetoprotein, maternal Alpha fetoprotein, maternal Lab Routine Second trimester 19 weeks gestation of Expected: 07/16/2024 (Approximate), Expires: 07/16/2025 [facility] Comment on above: Expected: 07/16/2024 (Approximate), Expires: 07/16/2025 Start: 07-16-2024 End: 07-16-2025 US for US OB 14+ weeks anatomy scan Imaging Routine Screening, , for anatomic survey Expected: 07/16/2024, Expires: 07/16/2025 [facility] Comment on above: Expected: 07/16/2024 , Expires: 07/16/2025 Start: 07-16-2024 End: 07-16-2024 Patient encounter procedure 07/16/2024 10:30 AM EST Routine [facility] [address] [place] [id number] Susan Montano PA [address] [place] [address] [facility] Start: 06-17-2024 End: 06-17-2024 Patient encounter procedure [facility] Comment on above: Arrived Start: 05-20-2024 End: 05-20-2025 ABO/Rh ABO/Rh Lab Routine Missed menses , unspecified gestational age Expected: 05/20/2024 (Approximate), Expires: 05/20/2025 [facility] Comment on above: Expected: 05/20/2024 (Approximate), Expires: 05/20/2025 Start: 05-20-2024 End: 05-20-2025 Blood type and Indirect antibody screen panel - Blood Type and screen Lab Routine Missed menses , unspecified gestational age Expected: 05/20/2024 (Approximate), Expires: 05/20/2025 [facility] Work Phone: Comment on above: Expected: [...] Office Visit [facility] [address] [place] [id number] Benji Leung DO [address] [place] [address] [facility] Start: 02-11-2024 End: 02-11-2024 Patient encounter procedure 02/11/2024 10:00 AM EDT Office Visit [facility] [address] [place] [id number] Sampson Ayala PA [address] [place] [address] Arrived [facility] Comment on above: Arrived Start: 06-09-2022 [facility] Start: 06-06-2022 Referral to infectio us diseases physician [facility] Start: 06-05-2022 Borrelia burgdorferi DNA assay [facility] Start: 06-05-2022 End: 06-05-2022 [facility] Start: 06-05-2022 [facility] Start: 06-04-2022 Referral to natural resources technician [facility] Start: 06-04-2022 Referral to urologist [facility] Start: 06-02-2022 Hospital admission [facility] Start: 06-02-2022 Referral to neurologist [facility] Bacteria identified in Urine by Culture Urine [...] Routine STD exposure Ordered: 07/16/2024 [facility] Comment on above: Ordered: 07/16/2024 Cytology Cervical or vaginal smear or scraping study Pap Smear Pathology and Cytology Routine Well woman exam with routine gynecological exam Ordered: 07/16/2024 [facility] Comment on above: Ordered: 07/16/2024 Hemoglobin A1c/Hemoglobin.total in Blood Hemoglobin A1c Lab Routine Missed menses , unspecified gestational age Ordered: 05/20/2024 [facility] Comment on above: Ordered: 05/20/2024 Hepatitis B virus surface Ag [Presence] in Serum or Plasma by Immunoassay Hepatitis B surface antigen Lab Routine Missed menses , unspecified gestational age Ordered: 05/20/2024 [facility] Comment on above: Ordered: 05/20/2024 Hepatitis C virus Ab [Presence] in Serum or Plasma by Immunoassay Hepatitis C antibody Lab Routine Missed menses , unspecified gestational age Ordered: 05/20/2024 [facility] Comment on above: Ordered: 05/20/2024 HIV-1/HIV-2 antigen/antibody combination immunoassay HIV-1 and HIV-2 antibodies Lab Routine Missed menses , unspecified gestational age Ordered: 05/20/2024 [facility] Comment on above: Ordered: 05/20/2024 IgG [Mass/volume] in Serum or Plasma [facility] Neisseria gonorrhoea e DNA [Presence] in Unspecified specimen by TERESA with probe detection Neisseria gonorrhea DNA probe, direct Lab Routine STD exposure Ordered: 07/16/2024 [facility] Comment on above: Ordered: 07/16/2024 Patient Education [facility] Work Phone: Patient referral [facility] Work Phone: Protein fractions.oligoclonal bands.intrathecal [Presence] in Serum and CSF [facility] Reagin Ab [Presence] in Serum by RPR RPR Lab Routine Missed menses , unspecified gestational age Ordered: 05/20/2024 [facility] Comment on above: Ordered: 05/20/2024 Rubella antibody, IgG Rubella an tibody, IgG Lab Routine Missed menses , unspecified gestational age Ordered: 05/20/2024 [facility] Comment on above: Ordered: 05/20/2024 SURESWAB(R) ADVANCED VAGINITIS PLUS, TMA SURESWAB(R) ADVANCED VAGINITIS PLUS, TMA Pathology and Cytology Routine Vaginal discharge Ordered: 07/16/2024 [facility] Work Phone: Comment on above: Ordered: 07/16/2024 URINARY TRACT INFECT ION (HTRX) URINARY TRACT INFECTION (HTRX) Lab Routine Dysuria Ordered: 04/08/2024 [facility] Work Phone: Comment on above: Ordered: 04/08/2024 Payers Date Payer Category Payer Self-pay [id number] 2023 Medicaid [id number] 2022 Medicaid [id number] 2003 Unknown [id number] 2.16.84 0.1.210015.3.579.2.593 2003 Unknown [id number] 2.16.8 40.1.608783.3.579.2.727 2003 Unknown [id number] 2.16.84 0.1.686720.3.579.2.1259 2003 Unknown [id number] 2.16.84 0.1.318715.3.579.2.1259 2003 Unknown [id number] 2.16.84 0.1.543707.3.579.2.1259 2003 Unknown [id number] 2.16.84 0.1.760693.3.579.2.1259 2003 Unknown [id number] 2.16.84 0.1.537933.3.579.2.1259 2003 Unknown [id number] 2.16.84 0.1.502375.3.579.2.1259 2003 Unknown [id number] 2.16.84 0.1.831016.3.579.2.125 2003 Unknown [id number] 2.16.84 0.1.703209.3.579.2.1259 2003 Unknown [id number] 2.16.84 0.1.451517.3.579.2.1259 Unknown [id number] 2.1 6.840.1.913900.19 Unknown [id number] 2.16.8 40.1.064992.3.579.2.531 Social History Date Type Detail Facility Start: 02-11-2024 End: 04-08-2024 Sex Assigned At [facility] Other Start: 07-01-2020 End: 12-22-2022 Tobacco smoking status Never smoked tobacco (finding) [facility] Tobacco smoking status [facility] Start: 2003 Sex Assigned At Female [facility] Start: 12-22-2022 Tobacco use and [...] Assessment Result Facility 10-28-2023 Functional Status N/A [facility] 06-15-2022 Functional Status N/A [facility] 06-09-2022 Functional status Patient at Baseline [facility] Work Phone: 05-24-2022 Functional Status N/A [facility] Mental Status Date Assessment Result Facility 06-09-2022 Cognitive function Cognitive Sta tus Patient at Baseline [facility] Work Phone: Clinical Notes 09-13-2021 [...] SURGERY Right 02/01/2024 Arthroscopy w/ MTP @ [facility] OTHER SURGICAL HISTORY 2004 adnoidectomy REVIEW OF [...] obtained without difficulty and patient was given [facility] order to have obtained. Orders Placed This Encounter Procedures US OB 14+ weeks anatomy scan CHLAMYDIA TRACHOMATIS (GENITO/STI) Neisseria gonorrhea DNA probe, direct Alpha fetoprotein, maternal POCT urinalysis dipstick manually resulted Follow Up: Patient is to return to our office in 4 weeks for routine OB appointment Documented by DANNI Rodgers on behalf of: DANNI Rodgers documented in this encounter [facility] 06-17-2024 History of Presen t illness [...] SURGERY Right 02/01/2024 Arthroscopy w/ MTP @ [facility] OTHER SURGICAL HISTORY 2004 adnoidectomy REVIEW OF [...] nursing note reviewed. Exam conducted with a chin strap maker present. Vitals: Estimated body mass index is [...] or undercooked meat, and stay away from [facility]. Patient has been consulted regarding any further do's and don'ts of . Patient voiced understanding and all questions and concerns were answered. Orders Placed This Encounter Procedures POCT urinalysis dipstick manually resulted Follow Up: Patient is to return in 4 weeks for routine OB appointment. Documented by Su Emery LPN on behalf of: Benji Leung DO documented in this encounter [facility] 05-20-2024 History of Presen t illness [...] SURGERY Right 02/01/2024 Arthroscopy w/ MTP @ [facility] OTHER SURGICAL HISTORY 2004 adnoidectomy No Known [...] or undercooked meat, and stay away from [facility]. Patient has also been advised to [...] MA documented in this encounter [facility] 04-15-2024 History of Presen t illness [...] SURGERY Right 02/01/2024 Arthroscopy w/ MTP @ [facility] OTHER SURGICAL HISTORY 2004 adnoidectomy REVIEW OF [...] nursing note reviewed. Exam conducted with a chin strap maker present. Vitals: Estimated body mass index is [...] DO documented in this encounter [facility] 04-08-2024 History of Presen t illness Narrative Images from the original note were not included. [address], [address] [facility], [address] P: [phone] F: [phone] HPI Historian of HPI: patient Heena Wang [...] 0 documented in this encounter [facility] 02-11-2024 History of Presen t illness [...] discomfort. documented in this encounter [facility] 02-11-2024 Instructions DANNI Judd - 02/11/2024 [...] discomfort. documented in this encounter [facility] 10-28-2023 Hospital Discharg e instructions Patient [...] sitting or lying down. General instructions Take owzt-vhr-xbuebie and prescription medicines only as told by [...] provider. Document Revised: 08/14/2022 Document Reviewed: 03/26/2020 [employer] Patient Education 2022 [employer]. 10/28/2023 12:35:22 How to Use a Knee [...] provider. Document Revised: 02/10/2022 Document Reviewed: 02/10/2022 [employer] Patient Education 2022 [employer] 10/28/2023 12:35:22 Radial Nerve Palsy Radial [...] provider. Document Revised: 06/29/2021 Document Reviewed: 06/29/2021 [employer] Patient Education 2022 [employer] 10/28/2023 12:35:22 Crutch Use, Adult, Ybwj-hd-Mzir Crutch Use, Adult Crutches are used to [...] you. Keep your weight over the hand charm filter operator helper. 3.Bring the good leg forward to meet the crutches or to land a little bit ahead of them. 4.Repeat. Going up steps If there is no handrail: 1.Walk up to steps and put weight on hand charm filter operator helper to step up. 2.Step up with your [...] provider. Document Revised: 11/26/2019 Document Reviewed: 11/26/2019 [employer] Patient Education 2022 [employer]. Follow Up Care 10/28/2023 11:08:54 With:Rayne Rivera Address: [address] [place] [phone]- Business (1) When:10/31/2023 12:11:58 With:MORRO HAUSER Address: [address] [place] [id number] [phone] Business (1) When:Within 3 Day([address]) [facility] 03-02-2023 Evaluation note Encounter Date Diagnosis [...] 3 days. May return to work tomorrow [facility] Other 01-26-2023 Hospital Discharge instructions Patient Education 06/15/2022 09:22:12 Acute Urinary Retention, Female, Gifl-hm-Ecyw Acute Urinary Retention, Female Acute urinary retention means that you cannot pee (urinate) at all, or that you pee too little and your bladder is not emptied completely. If it is not treated, it can lead to kidney damage or other serious problems. Follow these instructions at home: Take lxxv-dng-lctslmu and prescription medicines only as told by [...] 10/23/2008 Document Revised: 04/19/2018 Document Reviewed: 06/08/2017 [employer] Patient Education 2020 [employer]. Follow Up Care 06/07/2022 11:50:23 With:Iman Gomez MD, URL, URO Address: When: Unknown [facility] 01-25-2023 Evaluation note* Encounter Date [...] of care between Inpatient setting and outpatient MAC DEVELOPER office. Mother confirms that she did schedule [...] that were not corrected during review process. [facility] Other 01-20-2023 Progress note Author Kt Pearson [facility] June 09, 2022 3:41pm Note Date/Time June 09, 2022 3 :42pm [facility] [address] [place] [address] Neurology Progress Note Signed Patient: Heena Wang MR#: [id number] : 2005 Acct:[id number] Age/Sex: 17 / F Adm Date: 3 Loc: Room: [address] [place] [address] Type: ADM IN Attending Dr: Melo Diana [...] she went to get checked out at [facility] She was also experiencing tingling paresthesias that [...] signed by Kt Pearson DO> 06/09/22 1541 [facility] Work Phone: 1(912) 588-313301-19-2023 Progress note Author Kt Pearson [facility] June 08, 2022 3:35pm Note Date/Time June 08, 2022 7 :41am [facility] [address] [place] [address] Neurology Progress Note Signed Patient: Heena Wang MR#: [id number] : 2005 Acct:[id number] Age/Sex: 17 / F Adm Date: 3 Loc: Room: [address] [place] [address] Type: ADM IN Attending Dr: Melo Diana [...] level noted with pinprick CEREBELLAR EXAM: * Zprzct-xx-pdbg and alternating movements are intact and normal in bilateral upper extremities * Cxst-nj-vtrp and alternating movements are intact and normal [...] she went to get checked out at [facility] She was also experiencing tingling paresthesias that [...] 1535 <Electronically signed by RHIANNON Avery> 06/08/22 1113 [facility] Work Phone: 1(288) 691-294201-19-2023 Progress note Author Melo Diana [facility] June 08, 2022 10:23am Note Date/Time June 08, 2022 1 0:11am [facility] [address] [place] [address] Hospitalist Progress Note Signed Patient: Heena Wang MR#: [id number] : 2005 Acct:[id number] Age/Sex: 17 / F Adm Date: 3 Loc: 3T Room: [address] [place] [address] Type: ADM IN Attending Dr: Melo Diana [...] 18:05 06/06/22 18:10 Bisacodyl 10 Mg Supp.Rect NM 06/06/23 18:04 10 mg DAILY PRN Administration [...] Rodas catheter placement, 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 Paresthesias have improved more significantly today. Suspect an autoimmune or demyelinating process given findings on MRI brain in cervical and thoracic spine. Unclear how much patient's neurologic complaints are related to this Herpes NETWORK SECURITY CONSULTANT infection. Lumbar puncture results: Lymphocytic pleocytosis, +HSV2 [...] than 0.2, Zamora IgG less than 0.2, EXTRUSION PRESS ADJUSTER 0.2, scleroderma 0.2, Anti-MOG pending. -CSF albumin, [...] signed by Melo Diana MD> 06/08/22 1023 [facility] Work Phone: 1(476) 693-800701-19-2023 Progress note Author Melo Diana [facility] June 07, 2022 10:30pm Note Date/Time June 07, 2022 9 :03am [facility] [address] [place] [address] Hospitalist Progress Note Signed Patient: Heena Wang MR#: [id number] : 2005 Acct:[id number] Age/Sex: 17 / F Adm Date: 3 Loc: Room: [address] [place] [address] Type: ADM IN Attending Dr: Melo Diana [...] 18:05 06/06/22 18:10 Bisacodyl 10 Mg Supp.Rect NM 06/06/23 18:04 10 mg DAILY PRN Administration [...] Rodas catheter placement, 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 Paresthesias have mildly improved, have moved down from the region of her umbilicus down to her ankle and foot region. Unclear how much patient's neurologic complaints are related to this Herpes NETWORK SECURITY CONSULTANT infection. Lumbar puncture results: Clear, colorless fluid [...] than 0.2, Zamora IgG less than 0.2, EXTRUSION PRESS ADJUSTER 0.2, scleroderma 0.2, Anti-MOG pending. -CSF albumin, [...] <Electronically signed by Melo Diana MD> 06/07/22 6813 [facility] Work Phone: 1(888) 547-873201-18-2023 Progress note Author Kt Pearson [facility] June 07, 2022 3:13pm Note Date/Time June 07, 2022 7 :38am [facility] [address] [place] [address] Neurology Progress Note Signed Patient: Heena Wang MR#: [id number] : 2005 Acct:[id number] Age/Sex: 17 / F Adm Date: 3 Loc: Room: [address] [place] [address] Type: ADM IN Attending Dr: Melo Diana [...] level noted with pinprick CEREBELLAR EXAM: * Jqjqpj-yp-bqwu and alternating movements are intact and normal in bilateral upper extremities * Zpyx-dl-lvts and alternating movements are intact and normal [...] she went to get checked out at [facility] She was also experiencing tingling paresthesias that [...] <Electronically signed by RHIANNON Avery> 06/07/22 1205 [facility] Work Phone: 1(143) 547-136901-17-2023 Progress note Author Melo Diana [facility] June 06, 2022 4:37pm Note Date/Time June 06, 2022 8 :26am [facility] [address] [place] [address] Hospitalist Progress Note Signed Patient: Heena Wang MR#: [id number] : 2005 Acct:[id number] Age/Sex: 17 / F Adm Date: 3 Loc: Room: [address] [place] [address] Type: ADM IN Attending Dr: Melo Diana [...] 09:00 Valacyclovir 500 Mg Tablet PO TID [facility] A&P - Hospitalist Assessment/Plan (1) Herpes simplex [...] Bilateral Paresthesia of the Lower Extremities 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 Unclear how much patient's neurologic complaints are related to this Herpes NETWORK SECURITY CONSULTANT infection. Lumbar puncture results: Clear, colorless fluid [...] -Immunology for: LIZZY, SS?A/Ro, SS-B/La, Zamora IgG, EXTRUSION PRESS ADJUSTER, scleroderma pending -CSF albumin, oligoclonal IgG bands, [...] <Electronically signed by Melo Diana MD> 06/06/[address] [place] [address] Work Phone: 1(444) 479-871901-17-2023 Progress note Author Kt Pearson [facility] June 06, 2022 3:31pm Note Date/Time June 06, 2022 7 :55am [facility] [address] [place] [address] Neurology Progress Note Signed Patient: Heena Wang MR#: [id number] : 2005 Acct:[id number] Age/Sex: 17 / F Adm Date: 3 Loc: 3T Room: [address] [place] [address] Type: ADM IN Attending Dr: Melo Diana [...] level noted with pinprick CEREBELLAR EXAM: * Igehzb-yc-amqp and alternating movements are intact and normal in bilateral upper extremities * Vcya-sz-xgbw and alternating movements are intact and normal [...] she went to get checked out at [facility] She was also experiencing tingling paresthesias that [...] <Electronically signed by RHIANNON Avery> 06/06/22 0943 [facility] Work Phone: 1(589) 331-857601-17-2023 Consult note Author Rayne Vitale [facility] June 06, 2022 10:21am Note Date/Time June 06, 2022 1 0:09am [facility] [address] [place] [address] Infect. Disease Consult Note Signed Patient: Heena Wang MR#: [id number] : 2005 Acct:[id number] Age/Sex: 17 / F Adm Date: 3 Loc: 3T Room: [address] [place] [address] Type: ADM IN Attending Dr: Melo Diana [...] period of time. She had seen at [facility] and was given oral Flagyl and [...] unless noted below or in HPI [facility] Attestation Statement: The following information was [...] 17 Gm Powd.Pack) 17 gm PO DAILY [facility] Stop: 06/04/23 19:44 Last Admin: 06/06/22 08:46 Dose: 17 gm Valacyclovir HCl (Valacyclovir 500 Mg Tablet) 1,000 mg PO TID [facility] Last Admin: 06/06/22 08:46 Dose: 1,000 mg [...] signed by MD Rayne Vitale> 06/06/22 1021 [facility] Work Phone: 1([phone]) 928-257401-16-2023 Progress note Author Melo Diana [facility] June 05, 2022 5:58pm Note Date/Time June 05, 2022 9 :00am [facility] [address] [place] [address] Hospitalist Progress Note Signed Patient: Heena Wang MR#: [id number] : 2005 Acct:[id number] Age/Sex: 17 / F Adm Date: 3 Loc: Room: [address] [place] [address] Type: ADM IN Attending Dr: eMlo Diana MD Copies to: ~ Date of [...] -Immunology for: LIZZY, SS?A/Ro, SS-B/La, Zamora IgG, EXTRUSION PRESS ADJUSTER, scleroderma pending -Lumbar puncture results pending. Discussed [...] <Electronically signed by Melo Diana MD> 06/05/22 6283 [facility] Work Phone: 1(675) 713-558601-16-2023 Progress note Author Kt Pearson [facility] June 05, 2022 5:19pm Note Date/Time June 05, 2022 9 :08am [facility] [address] [place] [address] Neurology Progress Note Signed Patient: Heena Wang MR#: [id number] : 2005 Acct:[id number] Age/Sex: 17 / F Adm Date: 3 Loc: Room: [address] [place] [address] Type: ADM IN Attending Dr: Melo Diana [...] level noted with pinprick CEREBELLAR EXAM: * Tpajje-zy-vwbc and alternating movements are intact and normal in bilateral upper extremities * Aqck-di-pdgg and alternating movements are intact and normal [...] she went to get checked out at [facility] She was also experiencing tingling paresthesias that [...] <Electronically signed by Kt Pearson DO> 06/05/22 1509 <Electronically signed by RHIANNON Avery> 06/05/22 1049 [facility] Work Phone: 1(546) 344-274801-16-2023 [facility] Progress note Author Ravi Zhang [facility] June 04, 2022 6:44pm Note Date/Time June 04, 2022 1 0:01am [facility] [address] [place] [address] Hospitalist Progress Note Signed Patient: Heena Wang MR#: [id number] : 2005 Acct:[id number] Age/Sex: 17 / F Adm Date: 3 Loc: Room: [address] [place] [address] Type: ADM IN Attending Dr: Ravi Zhang [...] signed by Ravi Zhang DO> 06/04/22 1844 [facility] Work Phone: 1([phone]) 877-246001-15-2023 Consult note Author Isaías Pan [facility] June 04, 2022 2:39pm Note Date/Time June 04, 2022 2 :19pm [facility] [address] [place] [address] MAC DEVELOPER Consult Note Signed Patient: Heena Wang MR#: [id number] : 2005 Acct:[id number] Age/Sex: 17 / F Adm Date: 3 Loc: Room: [address] [place] [address] Type: ADM IN Attending Dr: Ravi Zhang [...] symptoms in the past that resemble this. [facility]?: Yes Medical History (Updated [...] 500 Mg Tablet) 1,000 mg PO BID [facility] IT DISASTER RECOVERY MANAGER - Exam Physical Exam Vital signs: Temp [...] lymph nodes. Lower extremities showed no edema. IT DISASTER RECOVERY MANAGER - Results Laboratory Results - Last 48 [...] % (Auto) 45.7, Lymph % (Auto) 42.0, [place] % (Auto) 9.4, Eos % (Auto) 0.9, Baso % (Auto) 2.0, Nucleat RBC Rel Count 0.3, Neut # (Auto) 3.1, Lymph # (Auto) 2.9, [place] # (Auto) 0.6, Eos # (Auto) 0.1, Baso # (Auto) 0.1, ESR 26 H Microbiology - Results from entire visit 06/04/22 12:05 Vaginal Fungal Smear - Final 06/04/22 12:05 Vaginal Trichomonas Wet [place] - Final IT DISASTER RECOVERY MANAGER - A/P (1) Acute urinary retention: Code(s): [...] a little more we can remove her Roads cathete and she should be able to [...] obtained Documented By: Isaías Pan DO 06/04/22 9313 Signed By: <Electronically signed by Isaías Pan DO> 06/04/22 7597 [facility] Work Phone: 1(270) 134-496501-15-2023 Consult note Author Iman Gomez [facility] June 04, 2022 1:38pm Note Date/Time June 04, 2022 1 1:04am [facility] [address] [place], [place] [address] Urology Consult Note Signed Patient: Heena Wang MR#: [id number] : 2005 Acct:[id number] Age/Sex: 17 / F Adm Date: 3 Loc: Room: [address] [place] [address] Type: ADM IN Attending Dr: Ravi Zhang DO Copies to: WINNIE Thomas MD Kristopher L Lindbloom, DO~ History of Present Illness Consult Details Consult Date: 06/04/2022 Reason for Urology Consult: Urinary retention Requesting Provider: Ravi Zhang DO HPI: 17 year old healthy female transferred from outside hospital to [facility] on 06/02/2022 with acute urinary [...] has not beendiagnosed with PCOS, no prior IT DISASTER RECOVERY MANAGER evaluation. Has appointment this week. Her paresthesias [...] % (Auto) 45.7, Lymph % (Auto) 42.0, [place] % (Auto) 9.4, Eos % (Auto) 0.9, Baso % (Auto) 2.0, Nucleat RBC Rel Count 0.3, Neut # (Auto) 3.1, Lymph # (Auto) 2.9, [place] # (Auto) 0.6, Eos # (Auto) 0.1, [...] Neurologic evaluation negative. Patient was down with MAC DEVELOPER getting examined due to swollen and painful [...] signed by Iman Gomez MD> 06/04/22 1338 [facility] Work Phone: 1([phone] 452-813501-15-2023 Progress note Author Kt Pearson [facility] June 04, 2022 11:43am Note Date/Time June 04, 2022 1 1:43am [facility] [address] [place] [address] Neurology Progress Note Signed Patient: Heena Wang MR#: [id number] : 2005 Acct:[id number] Age/Sex: 17 / F Adm Date: 3 Loc: Room: [address] [place] [address] Type: ADM IN Attending Dr: Ravi Zhang [...] signed by Kt Pearson DO> 06/04/22 1143 [facility] Work Phone: 1([phone]) 477-970901-14-2023 Progress note Author Ravi Zhang [facility] June 03, 2022 6:07pm Note Date/Time June 03, 2022 6 :07pm [facility] [address] [place], [place] [address] Hospitalist Progress Note Signed Patient: Heena Wang MR#: [id number] : 2005 Acct:[id number] Age/Sex: 17 / F Adm Date: 3 Loc: 3T Room: [address] [place] [address] Type: ADM IN Attending Dr: Ravi Zhang [...] <Electronically signed by Ravi Zhang DO> 06/03/221806 [facility] Work Phone: 1([phone] 249-276401-14-2023 Consult note Author Kt Pearson [facility] June 03, 2022 12:02pm Note Date/Time June 03, 2022 1 0:02am [facility] [address] [place] [address] Neurology Consult Note Signed Patient: Heena Wang MR#: [id number] : 2005 Acct:[id number] Age/Sex: 17 / F Adm Date: 3 Loc: Room: [address] [place] [address] Type: ADM IN Attending Dr: Ravi Zhang DO Copies to: DO Morro Lopez APRN Kristopher L Lindbloom, DO~ HPI Consult Date: 06/03/22 Hone Operator: Kt Pearson, DO [facility] Vaccinated for COVID-19?: Yes Social History [...] woman with history of scoliosis. Works at [employer]. After not being able to urinate for 8+ hours she went to get checked out at [facility]. She was also experiencing tingling paresthesias that [...] <Electronically signed by Kt Pearson DO> 06/03/22 8613 [facility] Work Phone: 1(552) 755-735901-13-2023 History and physical note Author Ravi Zhang [facility] June 02, 2022 9:44pm Note Date/Time June 02, 2022 9 :44pm [facility] [address] [place] [address] Hospitalist H&P Signed Patient: Heena Wang MR#: [id number] : 2005 Acct:[id number] Age/Sex: 17 / F Adm Date: 3 Loc: Room: [address] [place] [address] Type: ADM IN Attending Dr: Ravi Zhang [...] as mentioned elsewhere in the documentation. [facility] Attestation Statement: The following information was [...] and equal bilaterally. Lower extremities: She describes gnbt-oea-emqagsg type paresthesias all the way from the [...] <Electronically signed by Ravi Zhang DO> 06/02/222143 [facility] Work Phone: 1(398) 146-194001-04-2023 Hospital Discharge instructions Follow Up Care 05/24/2022 14:39:56 With:MORRO HAUSER CNP Address: [address] [place] [address] [place] [address]- When: Unknown [facility] 01-01-2023 History general Narrative [...] ingitis, urinary retention 06/02 - 06/09 2022 [facility] Other 01-01-2023 History general Narrative - Reported* [...] ingitis, urinary retention 06/02 - 06/09 2022 [facility] Other 08-18-2022 Evaluation note* Encounter Date Diagnosis [...] that were not corrected during review process. [facility] Other 07-07-2022 Evaluation note* Encounter Date Diagnosis Assessment Notes Treatment Notes Treatment Clinical Notes Nov, Exposure to COVID-19 virus (ICD-10 - Z20.822) [facility] Other 07-05-2022 Evaluation note* Encounter Date Diagnosis [...] continue medication, discontinuing medication or follow-up with MAC DEVELOPER.I did explain that there are other underlying pathologies that can cause painful cramping. This work-up and diagnosis would need to be done by MAC DEVELOPER especially due to her age.Patient verbalizes understanding and will let me know if she would like to continue the control or not. Nov, Other *Progress note was completed with the assistance of voice recognition software for dictation purposes. Please excuse any grammatical errors that were not corrected during review process. [employer] Other 04-26-2022 Evaluation note* Encounter Date Diagnosis [...] cancer, but decreased risk for ovarian/uterine cancers, jail. Can call in 3 months for refills if desired. [employer] Other Evaluation + Plan note No data available for this section 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 Metronidazole adverse reaction acute Paresthesia of both lower extremities acute Primary vulvovaginal herpes simplex infection acute Vaginal discharge acute Vulvar ulceration acute [facility] Work Phone: Evaluation noteNo InformationNort [employer] Other Evaluation noteNo assessment information available [facility] Work Phone: Evaluation note* Diagnosis Dysuria- Primary Acute cystitis without hematuria documented in this encounter [facility] Healthcare[facility]* Diagnosis Encounter for surveillance [...] ears twice 2004 Surgical History adenoidectomy 2004 [facility] [id number] Other History general Narrative - Reported* Type Description Date Medical History scoliosis Medical History seasonal allergies Surgical History tubes in ears twice 2004 Surgical History adenoidectomy 2004 [employer] Other Hospital Discharge instructions No data available for this section [facility] Additional Instructions Maintain and routine care to rodas. Maintain rodas until you see Dr. Gomez and she gives you further orders[facility] Work Phone: Progress note No data available for this section [facility] Chief Complaint and Reason for Visit [...] Referral Reason 07/26/22 @ 1:30pm NICOLE TRUJILLO [facility] SPECIFICALLY ; PATIENT'S MOTHER CLEARED WITH PROVIDER HERSELF PLEASE CONTACT MOTHER KEELY AT [phone] TO SCHEDULE Diagnosis 1 Anxiety (F41.9) Referral Organization [facility] Cathryn Llamas Referring Provider First Name Morro Referring Provider Last Name Talon Referring Provider Specialty Nurse Sera garcia Referred Organization [facility] [facility] Referred Address [address] [place], [place],[address] Referred Provider Specialty Psychiatry Referral Priority Routine Referral Appointment Date 2022-07-26 General Notes Tricia Borjas M 023 02:12:31 PM >Received today and fax referral. [facility] Referral Dept will call patient and [...] Morro Hauser APRN Primary Care Provider Active tK Pearson , Other Provider Active Isaías Pan , Other Provider Active Iman Gomez MD Other Provider Active Melo Diana MD Attending Provider Active Rayne Vitale MD Other Provider Active Team Status: Active Member Role Status Dates Morro Hauser APRN Primary Care Provider Active Team Status: Inactive Member Role Status Dates Morro Hauser APRN Primary Care Provider Active Samra Greenberg APRN Emergency Provider Active Machine Grinder Relationship Specialty Start Date End Date Morro Hauser MD [address] [place] [address] Primary Care Provider [facility] 01/11/23 Machine Grinder Relationship Specialty Start Date End Date Morro Hauser MD [address] [place] [address] Primary Care Provider [facility] 01/11/23 Machine Grinder Relationship Specialty Start Date End Date Morro Hauser MD [address] [place] [address] [place] [address] Primary Care Provider Family Medicine 01/11/23 Machine Grinder Relationship Specialty Start Date End Date Morro Hauser MD [address] [place] [address] Primary Care Provider Family Medicine 01/11/23 Machine Grinder Relationship Specialty Start Date End Date Morro Hauser MD [address] [place] [address] Primary Care Provider Family Medicine 01/11/23 Machine Grinder Relationship Specialty Start Date End Date Morro Hauser MD [address] [place] [address] Primary Care Provider Family Medicine 01/11/23 Machine Grinder Relationship Specialty Start Date End Date Morro Hauser MD [address] [place] [address] Primary Care Provider Family Medicine 01/11/23 Goals (unrecognized section and content) Goals may be documented in a n alternate section INFORMATION SOURCE (unrecogn ized section and content) DATE CREATED AUTHOR [facility]/08/2022 [facility] DATE CREATED AUTHOR AUTHOR'S ORGANIZ ATION 11/22/2023 [facility] DATE CREATED AUTHOR AUTHOR'S ORGANIZ ATION 05/18/2024 [facility] DATE CREATED AUTHOR AUTHOR'S ORGANIZ ATION 07/18/2024 [facility] FOR RECORDS PERTAINING TO PATIENTS WHO ARE [...] BE BASED ON THE PRIMARY CLINICAL RECORDS. [employer] [facility]. provides no warranty or guarantee of the accuracy or completeness of information in this document.
[2024-07-25 02:07] LABS: AFP Value 67.8 ng/mL (.); Gestat. Age Based On Ultrasound (.); Insulin Dep Diabetes No (.); Maternal Age At EDD 21.6 yr (.); OSBR Risk 1 IN 4529 (.); Results Report (.)
== END 2024-07-23 08:00 | disposition home or self-care (01) ==
PROVIDERS: PCP Nurse Practitioner Family; Visit Provider Physician Assistant
DX: Z34.92 Encounter for supervision of normal pregnancy, unspecified, second trimester (principal); Z3A.19 19 weeks gestation of pregnancy
CPT/HCPCS: 36415; 82105

== ENCOUNTER 2024-09-24 11:21 | Outpatient (OUT) | payer MEDICAID, SELFPAY ==
[2024-09-24 12:36] LABS: Basophils Absolute Auto 0.1 10^3/uL (0.0-0.1); Basophils Percent Auto 0.7 % (0.2-2.0); Eosinophils Absolute Auto 0.1 10^3/uL (0.0-0.7); Eosinophils Percent Auto 0.7 % (0.9-7.0); Hematocrit 34.9 % (36.0-48.0); Hemoglobin 11.7 g/dL (12.0-16.0); Immature Granulocytes Abs Auto 0.16 10^3/uL (0.00-0.03); Immature Granulocytes Pct Auto 1.7 % (0.0-0.5); Lymphocytes Absolute Auto 1.7 10^3/uL (1.2-3.8); Lymphocytes Percent Auto 17.5 % (20.5-60.0); Mean Corpuscular HGB Conc 33.5 g/dL (29.9-35.2); Mean Corpuscular Hemoglobin 30.6 pg (26.7-34.0); Mean Corpuscular Volume 91.4 fL (81.0-99.0); Mean Platelet Volume 11.3 fL (9.5-13.5); Monocytes Absolute Auto 0.8 10^3/uL (0.3-0.8); Monocytes Percent Auto 8.4 % (1.7-12.0); Neutrophils Absolute Auto 6.8 10^3/uL (1.4-6.5); Platelet Count 198 10^3/uL (150-450); Red Blood Count 3.82 10^6/uL (4.20-5.40); Red Cell Distribution Width 12.3 % (11.0-15.0); White Blood Count 9.6 10^3/uL (4.0-11.0)
[2024-09-24 13:10] LABS: Glucose 1 Hour 85 mg/dL (<130)
== END 2024-09-24 11:22 | disposition home or self-care (01) ==
LOC: LAB 11:23
PROVIDERS: PCP Nurse Practitioner Family; Visit Provider Obstetrics & Gynecology
DX: Z13.1 Encounter for screening for diabetes mellitus (principal)
CPT/HCPCS: 36415; 82950; 85025

== ENCOUNTER 2024-10-01 09:16 | Outpatient (RCR) | payer MEDICAID, SELFPAY ==
[2024-10-01 11:15] VITALS: BP 116/78; PULSE 98; TEMP 36.8; O2SAT 98
[2024-10-01] MEDS: RHO(D) IMMUNE GLOBULIN 1,500 UNIT SYRINGE 1500 UNIT IM (11:26)
== END 2024-10-20 10:55 | disposition home or self-care (01) ==
LOC: LAB 09:16
PROVIDERS: PCP Nurse Practitioner Family; Visit Provider Obstetrics & Gynecology
DX: Z67.91 Unspecified blood type, Rh negative (principal)
CPT/HCPCS: 36415; 86850; 86900; 86901; 96372; J2791

== ENCOUNTER 2024-11-12 19:32 | Outpatient (REF) | payer MEDICAID, SELFPAY ==
--- OUTSIDE RECORDS SUMMARY | 2023-06-19 06:00 | XMS_ITS ---
Author Organization [facility] Address [address] [place] [address] Care Team Providers Care Film Washer Name Role Phone Jessica Nicole Primary Care Provider Betty Steele Unavailable REASON FOR VISIT med check Encounters Encounter Location Date Provider Diagnosis [facility] [address] [place] [address] 06/19/2023 Nicole Lopez Plan Of Treatment No Information Progress Notes * HEENA WANGDOB:2005 ( 19 yo F)Acc No.[id number]:06/19/2023 Behavioral Health Patient: HEENA SORENSEN Appointment Provider: Jazzy Lopez :2005 A ge:18 Y S ex:Female Date:06/19/2023 [facility] [address] [facility] [id number] Subjective: * Chief Complaints: * 1 . med check. * Medical History: Objective: * Vitals: Assessment: Plan: * Treatment: * Images: * Electronic signature of SHELDON Perera FNP on 11/12/2024 at 03:20 PM EDT Sign off status: Pending * Appointment Provider: Jazzy Lopez Date: 0 06/19/2023 Generated for Printi ng/Faxing/eTransmitting on: 0 11/12/2024 03:20 PM EDT
--- OUTSIDE RECORDS SUMMARY | 2024-10-29 13:30 | XMS_ITS | Encounter Summary ---
Author Organization [facility] Healthcare Address [address] [place] [address] Care Team Providers Care Bevel Polisher Name Role Phone Jenna Hanley AVIONICS SYSTEMS INTEGRATION SPECIALIST Unavailable Reason for Visit * Reason Comments Routine Visit Encounter Details Date Type Department Care Team (Late st Contact Info) Description 10/29/2024 1:30 PM EDT Routine [facility] [address] [place] [id number] Benji Leung, DO [address] [place], [facility] Third trimester ([facility]); 34 weeks gestation of ([facility]) Social History Tobacco Use Types Packs/Day Years Used Date Smoking Tobacco: Never Smokeless Tobacco: Never Alcohol Use Standard Drinks/Week Comments Never 0 (1 standard drink = 0.6 oz pure alcohol) Caffeine: 1-2 cups/day tea, chocolate Estimated Date of Delivery Comme nts Yes 12/09/2024 Based on Ultraso und Sex and Gender Information Value Date Recorded Sex Assigned at Female 12/24/2022 8:24 PM EDT Legal Sex Female 6:40 PM EDT Gender Identity Female 12/24/2022 8:24 PM EDT Sexual Orientation Straight 12/24/2022 8: 24 PM EDT documented as of this encounter Last Filed Vital Signs Vital Sign Reading Time Taken Comments Blood Pressure 120/70 10/29/2024 1:45 PM EDT Pulse - - Temperature - - Respiratory Rate - - Oxygen Saturation - - Inhaled Oxygen Concentration - - Weight 87.9 kg (193 lb 12.8 oz) 10/29/2024 1:45 PM EDT Height - - Body Mass Index 27.81 02/11/2024 10:00 AM EDT documented in this encounter Progress Notes * Lakshmi Cruz NP - 10/29/2024 1:30 PM EDT Reason for Appointment: Patient ID: Lexus Benites is a 19 y.o. female who presents for Routine Visit Patient presents today for Return OB appointment. MEDICATIONS Current Outpatient Medications Medication Instructions azaTHIOprine (Imuran) 100 MG tablet TAKE 1/2 (ONE-HALF) OF A TABLET BY MOUTH EVERY MORNING, and ONETABLET AT BEDTIME, titrate up DIRECTED Diagnosis Unavailable [...] nausea. valACYclovir (VALTREX) 500 mg, Oral, Daily valACYclovir (VALTREX) 500 mg, Oral, Daily ALLERGIES [...] Relation Name Age of Onset Arthritis Mother Celina Benites Dislocations Mother Celina Armstrongder Rheumatologic disease Mother Celina Armstrongder Hypertension Father Diabetes Brother Hypertension Maternal Grandmother Aure Starr Cancer Maternal Grandmother Aure Starr Cancer Maternal Grandfather Stepan Benites Cancer Paternal Grandmother Izzy Gutiérrez SURGICAL HISTORY Past Surgical History: Procedure Laterality Date INNER EAR SURGERY 2005 tubes in ears KNEE CARTILAGE SURGERY Right 02/01/2024 Arthroscopy w/ MTP @ [facility] OTHER SURGICAL HISTORY 2004 adnoidectomy REVIEW [...] nursing note reviewed. Exam conducted with a poultry grader present. Vitals: Estimated body mass index is 27.81 kg/m?? as calculated from the following: Height as of 02/11/24: 5' 10 . Weight as of this encounter: 193 lb 12.8 oz. BP: 120/70 No LMP recorded. Patient is . ASSESSMENT & PLAN ICD-10-CM 1. Third trimester Z34.93 2. 34 weeks gestation of Z3A.34 Return OB: Patient presents today for a routine obstetrics appointment. Patient is currently 34w1d . Patient states she is doing well but has complaints of being tired due to current . Patient has verbalizes frequent movement. labor precautions was discussed/given and patient was instructed to perform kick counts three times a day. Patient with history of spine lesion, she would like to discuss epidural. Our office has reached out to anesthesia for consult with patient. Patient continues to take Valtrex and is doing well with this. We discussed family plan today as well and all questions were answered. No orders of the defined types were placed in this encounter. Follow Up: Patient is to return to office in 2 week for routine OB appointment. Documented by Lakshmi Cruz NP on behalf of: Benji Leung DO documented in this encounter Plan of Treatment Upcoming Encounters Date Type Department Care Team (Late st Contact Info) Description 11/19/2024 2:30 PM EDT Routine [facility] [address] [place] [phone] Benji Leung DO [address] [place] [address] documented as of this encounter Visit Diagnoses Diagnosis Third trimester ([facility]) state, incidental 34 weeks gestation of ([facility]) documented in this encounter Care Teams Bevel Polisher Relationship Specialty Start Date End Date Jenna Hanley NP Primary Care Provider Family Medicine 01/11/23 documented as of this encounter
--- OUTSIDE RECORDS SUMMARY | 2024-11-12 15:20 | XMS_ITS | Encounter Summary ---
Author Organization [facility] Address [address] [place] [address] Care Team Providers Care Blending Operator Name Role Phone Jenna Hanley ASSOCIATE PRODUCT INTEGRITY ENGINEER Unavailable [phone] Encounter Details Date Type Department Care Team (Late st Contact Info) Description 11/12/2024 3:20 PM EDT Routine [facility] [address] [place] [address] Susan Montano PA [address] [place], [facility]11 Third trimester ([facility]) Social History Tobacco Use Types Packs/Day Years [...] Sign Reading Time Taken Comments Blood Pressure 122/84 11/12/2024 3:41 PM EDT Pulse - - Temperature - - Respiratory Rate - - Oxygen Saturation - - Inhaled Oxygen Concentration - - Weight 92.1 kg (203 lb) 11/12/2024 3:41 PM EDT Height - - Body Mass Index 29.13 02/11/2024 10:00 AM EDT documented in this encounter Progress Notes * Lakshmi Cruz NP - 11/12/2024 3:20 PM EDT Reason for Appointment: Patient ID: Lexus Benites is a 19 y.o. female who presents for No chief complaint on file. Patient presents today for Return OB appointment. [...] Arthritis Mother Celina Benites Dislocations Mother Celina Benites Rheumatologic disease Mother Celina Benites Hypertension Father Diabetes Brother Hypertension Maternal Grandmother Aure Starr Cancer Maternal Grandmother Aure Lewisrth Cancer Maternal Grandfather Stepan Benites Cancer Paternal Grandmother Izzy Gutiérrez SURGICAL HISTORY Past Surgical History: Procedure Laterality Date INNER EAR SURGERY 2004 tubes in ears KNEE CARTILAGE SURGERY Right 02/01/2024 Ar[facility]roscopy w/ MTP @ [facility] OTHER SURGICAL HISTORY 2004 adnoidectomy REVIEW OF [...] nursing note reviewed. Exam conducted with a aviation mechanic present. Vitals: Estimated body mass index is 29.13 kg/m?? as calculated from the following: Height as of 02/11/24: 5' 10 . Weight as of this encounter: 203 lb. BP: 122/84 No LMP recorded. Patient is . ASSESSMENT & PLAN ICD-10-CM 1. Third trimester ([facility]) Z34.93 CULTURE, GROUP B STREP WITH SUSCEPTIBLITY CULTURE, GROUP B STREP WITH SUSCEPTIBLITY Return OB: Patient presents today for a routine obstetrics appointment. Patient is currently 36w1d . Patient states she is doing well but has complaints of being tired due to current . Patient has verbalizes frequent movement. labor precautions was discussed/given and patient was instructed to perform kick counts three times a day. Orders Placed This Encounter Procedures CULTURE, GROUP B STREP WITH SUSCEPTIBLITY Follow Up: Patient is to return to office in 1 week for routine OB appointment. GBS cultures obtained. Patienthas not heard from anesthesia regarding epidural and concerns with history of lesions on spine willmake referral for televisit. I left a message today with the Director of [facility] to contact the patient regarding epidural concerns. Documented by Lakshmi Cruz NP on behalf of: NANCY Lewis documented in this encounter Plan of Treatment Upcoming Encounters Date Type Department Care Team (Late st Contact Info) Description 11/19/2024 2:30 PM EDT Routine [facility] [address] [place] [address] Benji Leung, DO [address] [place] [address] Scheduled Orders Name Type Priority Associated Diagnoses Orde r Schedule CULTURE, GROUP B STREP WITH SUSCEPTIBLITY Lab Routine Third trimester ([facility]) Expected: 11/12/2024, Expires: 11/12/2025 documented as of this encounter Visit Diagnoses Diagnosis Third trimester ([facility]) state, incidental documented in this encounter Care Teams Blending Operator Relationship Specialty Start Date End Date Jenna Hanley NP Primary Care Provider Family Medicine 01/11/23 documented as of this encounter
--- OUTSIDE RECORDS SUMMARY | 2024-11-12 19:36 | XMS_ITS | Encounter Summary ---
Author Organization [facility] Address [address] [place] [address] Care Team Providers Care Sdv Pilot/Navigator/Dds Operator Name Role Phone Jenna Hanley CROSSBAR FRAME WIRER Unavailable Encounter Details Date Type Department Care Team (Late st Contact Info) Description 06/05/2024 Abstract [facility] [address] [place] [address] Benji Leung, [facility] [place], [place] [address] Social History Tobacco Use Types Packs/Day Years [...] PM EDT documented as of this encounter Plan of Treatment Upcoming Encounters Date Type Department Care Team (Late st Contact Info) Description 11/19/2024 2:30 PM EDT Routine [facility] [address] [place] [address] Benji Leung, [address] [place] [address] documented as of this encounter Visit Diagnoses Not on filedocumented in this encounter Care Teams Sdv Pilot/Navigator/Dds Operator Relationship Specialty Start Date End Date Jenna Hanley NP Primary Care Provider Family Medicine 01/11/23 documented as of this encounter
--- OUTSIDE RECORDS SUMMARY | 2024-11-12 19:36 | XMS_ITS | Clinical Summary ---
Author Organization [facility] Healthcare Address [address] [place] [address] Care Team Providers Care Shed Boss Name Role Phone Jenna Hanley PREPARATION ROOM MANAGER Unavailable [phone] Allergies No known active allergies Medications azaTHIOprine (Imuran) 100 MG tablet TAKE 1/2 (ONE-HALF) OF A TABLET BY MOUTH EVERY MORNING, and ONE TABLET AT BEDTIME, titrate up DIRECTED Diagnosis Unavailable Active escitalopram (Lexapro) 20 MG tablet 1 (one) time each day at the same time. 07/27/19 23 Active valACYclovir (Valtrex) 500 MG tabletIndications: HSV (herpes simplex virus) infection Take 1 tablet by mouth once daily 30 tablet 3 12/26/19 24 Active promethazine (Phenergan) 12.5 MG tabletIndications: Nausea and vomiting during ([facility]) Take 1 tablet (12.5 mg) by mouth every 6 (six) hours if needed for nausea or vomiting for up to 30 doses Take 1 tablet by mouth every 6 hours as needed for nausea. 30 tablet 2 04/23/20 24 Active metoclopramide (Reglan) 10 MG tabletIndications: Nausea and vomiting during ([facility]) Take 1 tablet (10 mg) by mouth in the morning and 1 tablet (10 mg) at noon and 1 tablet (10 mg) in the evening. Take before meals. Take 1 tablet by mouth 30 minutes prior to meals 3 times daily as needed for nausea.. 90 tablet 3 05/15/20 24 Active promethazine (Phenergan) 12.5 MG tabletIndications: Nausea and vomiting during ([facility]) Take 1 tablet (12.5 mg) by mouth every 6 (six) hours if needed for nausea or vomiting for up to 30 doses Take 1 tablet by mouth every 6 hours as needed for nausea. 30 tablet 2 05/15/20 24 Active ondansetron ODT (Zofran-ODT) 4 MG disintegrating tabletIndications: Nausea Take 1 tablet (4 mg) by mouth every 8 (eight) hours if needed for nausea or vomiting 20 tablet 3 07/25/19 25 Active valACYclovir (Valtrex) 500 MG tabletIndications: HSV (herpes simplex virus) infection Take 1 tablet (500 mg) by mouth Daily 30 tablet 11 10/01/19 25 025 Active Problems Problem Noted Date Diagnosed Date HSV (herpes simplex virus) infection 12/22/2022 Estimated Date of Delivery Comme nts Yes 12/09/2024 Based on Ultraso und Encounters Date Type Department Care Team Description 11/12/2024 3:20 PM EDT Routine [facility] OB [address] [place] [address] Susan Montano PA Third trimester ([facility]) 11/12/2024 Bamboo flowsheet [facility] OB [address] [place] [address] [place] [address] Susan Montano PA 10/29/2024 1:30 PM EDT Routine [facility] OB [address] [place] [address] [place] [address] Benji Leung DO Third trimester ([facility]); 34 weeks gestation of ([facility]) 10/29/2024 Bamboo flowsheet [facility] [place] [address] [place] [address] Benji Leung DO 10/16/2024 3:40 PM EDT Routine [facility] [address] [facility] [place] [address] Susan Montano PA Third trimester ([facility]); 32 weeks gestation of ([facility]); Low-lying placenta ([facility]) 10/16/2024 3:00 PM EDT Ancillary Procedure [facility] [address] [place] [address] size inconsistent with dates ([facility]) 10/08/2024 Abstract [facility] [address] [place] [address] Benji Leung, DO 09/30/2024 9:50 AM EDT Routine [facility] [address] [place] [address] Benji Leung, DO Third trimester ([facility]); 30 weeks gestation of ([facility]); size inconsistent with dates ([facility]); HSV (herpes simplex virus) infection 09/30/2024 Bamboo flowsheet [facility] [address] [place] [address] Benji Leung, DO 09/24/20[address] [facility] [address] [place] [address] Benji Leung, DO 09/24/2024 Clinisync Result Encounter [facility] External Department Unsolicited Benji Leung, DO 09/10/2024 10:30 AM EDT Routine [facility] [address] [place] [address] Lakshmi Cruz NP Second trimester ([facility]); 27 weeks gestation of ([facility]); Low-lying placenta ([facility]) 09/10/2024 Bamboo flowsheet [facility] [address] [place] [address] Lakshmi Cruz NP 09/09/2024 Results Follow-Up [facility] [address] [place] [address] Anisa Parker LPN 09/01/2024 1:00 PM EDT Ancillary Procedure [facility] [address] [place] [address] Low-lying placenta ([facility]); Encounter for follow-up ultrasound of anatomy ([facility]) 08/13/2024 11:30 AM EDT Routine [facility] [address] [place] [address] Benji Leung, Second trimester ([facility]); 23 weeks gestation of ([facility]); Diabetes mellitus screening 08/13/2024 Abstract [facility] [address] [place] [address] Benji Leung DO 08/13/2024 Bamboo flowsheet [facility] [address] [place] [address] Benji Leung DO from Last 3 Months Family History Medical History Relation Name Comments Diabetes Brother Hypertension Father Cancer Maternal Grandfather Stepan Benites Cancer Maternal Grandmother Aure Dearth Hypertension Maternal Grandmother Aure Dearth Arthritis Mother Celina Benites Dislocations Mother Celina Benites Rheumatologic disease Mother Celina Benites Cancer Paternal Grandmother Izzy Gutiérrez Relation Name Status Comments Brother Father Alive Maternal Grandfather Stepan Benites Maternal Grandmother Aure Dearth Mother Celina Benites Alive Paternal Grandmother Izzy Gutiérrez Social History Tobacco Use Types Packs/Day Years Used Date Smoking Tobacco: Never Smokeless Tobacco: Never Tobacco Cessation:Counseling Given: Not Answered Alcohol Use Standard Drinks/Week Comments Never 0 [...] Orientation Straight 12/24/2022 8: 24 PM EDT Last Filed Vital Signs Vital Sign Reading Time Taken Comments Blood Pressure 122/84 11/12/2024 3:41 PM EDT Pulse 103 04/08/2024 6:25 PM EST Temperature 36.8 C (98.2 F) 04/08/2024 6:25 PM EST Respiratory Rate - - Oxygen Saturation 98% 04/08/2024 6:25 PM EST Inhaled Oxygen Concentration - - Weight 92.1 kg (203 lb) 11/12/2024 3:41 PM EDT Height 177.8 cm (5' 10 ) 02/11/2024 10:00 AM EDT Body Mass Index 29.13 02/11/2024 10:00 AM EDT Plan of Treatment Upcoming Encounters Date Type Department Care Team (Late st Contact Info) Description 11/19/2024 2:30 PM EDT Routine [facility] [address] [facility] [place] [address] Benji Leung, DO [address] [facility] [place] [address] Procedures Procedure Name Priority Date/Time Associated Diagnosis Comments US OB FOLLOW UP TRANSABDOMINAL APPROACH Routine 10/16/2024 3:37 PM EDT size inconsistent with dates ([facility]) GLUCOSE 1 HOUR Routine 09/24/2024 12:30 PM EDT ALL CBC WITH AUTO DIFF Routine 12:30 PM EDT POCT URINALYSIS DIPSTICK Routine 09/10/2024 10:53 AM EDT Second trimester ([facility]) US OB LIMITED 1+ FETUSES Routine 09/01/2024 1:46 PM EDT Low-lying placenta ([facility]) POCT URINALYSIS DIPSTICK Routine 08/13/2024 11:42 AM EDT Second trimester ([facility]) from Last 3 Months Results * US OB follow up transabdominal approach (10/16/2024 3:37 PM EDT) Anatomical Region Laterality Modality Body Ultrasound 10/17/2024 11:5 4 AM EDT Narrative 10/17/2024 11:54 AM EDT EXAM: US OB FOLLOW UP TRANSABDOMINAL APPROACH HISTORY: Inconsistent size. COMPARISON: Ob ultrasound 09/01/2024. TECHNIQUE: Two-dimensional transabdominal grayscale ultrasound imaging of the pelvis was performed. FINDINGS: Gestation: Single Presentation: Cephalic Cardiac Activity: 144 beats per minute Amniotic Fluid Index: 14.2 cm MEASUREMENTS: BPD: 7.9 cm EGA: 31 weeks 4 days HC: 29.5 cm EGA: 32 weeks 4 days AC: 27.2 cm EGA: 31 weeks 2 days FL: 6.4 cm EGA: 33 weeks 1 days HC/AC Ratio: 1.08 The gestational age by today's ultrasound is 32 weeks 1 days (+/- 16 days gestation). Estimated Weight: 1881 grams, +/- 282 grams ( 4 lb 2 oz). Weight Percentile for gestational age: 30 % IMPRESSION: 1. Single, live intrauterine gestation 32 weeks, 2 days by LMP. Today's ultrasound measurements correlate with a gestational age of 32 weeks 1 days. Estimated weight is 1881 grams, +/- 282 grams ( 4 lb 2 oz) which correlates to 30 %. KIRK is 12/10/2024. Interpreted by: Electronically signed by SARAH COREA II, MD, PHD at 17-Oct-2024 11:53:40 AM [facility] Procedure Note Sarah Corea MD - 10/17/2024 EXAM: US OB FOLLOW UP TRANSABDOMINAL APPROACH HISTORY: Inconsistent size. COMPARISON: Ob ultrasound 09/01/2024. TECHNIQUE: Two-dimensional transabdominal grayscale ultrasound imaging ofthe pelvis was performed. FINDINGS: Gestation: Single Presentation: Cephalic Cardiac Activity: 144 beats per minute Amniotic Fluid Index: 14.2 cm MEASUREMENTS: BPD: 7.9 cm EGA: 31 weeks 4 days HC: 29.5 cm EGA: 32 weeks 4 days AC: 27.2 cm EGA: 31 weeks 2 days FL: 6.4 cm EGA: 33 weeks 1 days HC/AC Ratio: 1.08 The gestational age by today's ultrasound is 32 weeks 1 days (+/- 16 daysgestation). Estimated Weight: 1881 grams, +/- 282 grams ( 4 lb 2 oz). Weight Percentile for gestational age: 30 % IMPRESSION: 1. Single, live intrauterine gestation 32 weeks, 2 days by LMP. Today'sultrasound measurements correlate with a gestational age of 32 weeks 1days. Estimated weight is 1881 grams, +/- 282 grams ( 4 lb 2 oz)which correlates to 30 %. KIRK is 12/10/2024. Interpreted by: Electronically signed by SARAH COREA II, MD, PHD [id number] 11:53:40 AM [facility] us Benji Madhu DO IMG OB US PROCEDURES Final Resul t * GLUCOSE 1 HOUR (09/24/2024 12:30 PM EDT) Pathologist [facility] GLUCOSE 1 HOUR 85 <130 mg/dL [facility] 09/24/2024 12:3 0 PM EDT 09/24/2024 12:32 PM EDT Narrative [facility] - 09/24/2024 1:13 PM EDT us Benji Madhu DO LAB BLOOD ORDERABLES Final Resul t [facility] * (ABNORMAL) ALL CBC WITH AUTO DIFF (09/24/2024 12:30 PM EDT) [facility] WBC 9.6 4.0 - 11.0 10 3/uL [facility] TB[facility] RBC 3.82(L) 4.20 - 5.40 10 6/uL [facility] HGB 11.7(L) 12.0 - 16.0 g/dL TBH TB[facility] HCT 34.9(L) 36.0 - 48.0 % [facility] MCV 91.4 81.0 - 99.0 fL TBH TBH MCH 30.6 26.7 - 34.0 pg TBH TBH MCHC 33.5 29.9 - 35.2 g/dL TBH TBH RDW 12.3 11.0 - 15.0 % TBH TBH PLT 198 150 - 450 10 3/uL TBH TBH MPV 11.3 9.5 - 13.5 fL [facility]H NEUTROPHILS PERCENT AUTO 71.0 43.0 - 75.0 % TBH LYMPHOCYTES PERCENT AUTO 17.5(L) 20.5 - 60.0 % [facility] MONOCYTES PERCENT AUTO 8.4 1.7 - 12.0 % TBH TBH EO % 0.7(L) 0.9 - 7.0 % [facility] BASOPHILS PERCENT AUTO 0.7 0.2 - 2.0 % [facility] IMMATURE GRANULOCYTES PCT AUTO 1.7(H) 0.0 - 0.5 % [facility] NEUTROPHILS ABSOLUTE AUTO 6.8(H) 1.4 - 6.5 10 3/uL TBH LYMPHOCYTES ABSOLUTE AUTO 1.7 1.2 - 3.8 10 3/uL TBH MONOCYTES ABSOLUTE AUTO 0.8 0.3 - 0.8 10 3/uL TBH TBH EO # 0.1 0.0 - 0.7 10 3/uL TBH BASOPHILS ABSOLUTE AUTO 0.1 0.0 - 0.1 10 3/uL [facility] IMMATURE GRANULOCYTES ABS AUTO 0.16(H) 0.00 - 0.03 10 3/uL [facility] 09/24/2024 12:3 0 PM EDT 09/24/2024 12:32 PM EDT Narrative [facility] - 09/24/2024 12:41 PM EDT us Benji Leung DO [facility] Final Result [facility] * POCT urinalysis dipstick manually resulted (09/10/2024 10:53 AM EDT) Only the most recent of2 resultswithin the time period is included. Color, UA Yellow Clarity, UA Clear Glucose, UA Negative Negative - 1999(110) ++++ mg/dL Bilirubin, UA Negative Negative - 4(70) +++ mg/dL Ketones, UA Negative Negative - 160(16) ++++ mg/dL Spec Grav, UA 1.020 1 - 1.03 Blood, UA Negative Negative - 50 Timmy/mcL pH, UA 7.0 5 - 9 Protein, UA Negative Negative - 1999(20) ++++ mg/dL Urobilinogen, UA 2.0 0.2 - 12 mg/dL Leukocytes, UA Negative Negative - 500+++ Hilda/mcL Nitrite, UA Negative Negative - Positive Urine 09/10/2024 10:5 3 AM EDT Lakshmi Cruz NP POINT OF CARE TEST ENTER/EDIT ORDERABLES Final Result * US OB limited 1+ fetuses (09/01/2024 1:46 PM EDT) Anatomical Region Laterality Modality Body Ultrasound 09/01/2024 11:4 9 PM EDT Narrative 09/01/2024 11:49 PM EDT EXAM: US OB LIMITED 1+ FETUSES HISTORY: Follow up anatomy, low-lying placenta. COMPARISON: None available. TECHNIQUE: Two-dimensional transabdominal grayscale ultrasound imaging of the pelvis was performed. FINDINGS: Gestation: Single Presentation: Cephalic Cardiac Activity: 163 beats per minute Placental Location: Posterior low-lying Distance from Placental Tip to Cervix: 1.2 cm Cervical Length: 4.1 cm Amniotic Fluid: Appears adequate ANATOMY Four Chamber Heart: Unremarkable LVOT: Unremarkable RVOT: Unremarkable IMPRESSION: 1. Single, live intrauterine gestation 25 weeks, 6 days by LMP. KIKR is 12/09/2024. 2. Unremarkable follow-up anatomy of the four-chamber heart and outflow tracts. 3. Low-lying placenta. Interpreted by: Electronically signed by SARAH COREA II, MD, PHD at 01-Sep-2024 11:47:56 PM [facility] Procedure Note Sarah Corea MD - 09/01/2024 EXAM: US OB LIMITED 1+ FETUSES HISTORY: Follow up anatomy, low-lying placenta. COMPARISON: None available. TECHNIQUE: Two-dimensional transabdominal grayscale ultrasound imaging ofthe pelvis was performed. FINDINGS: Gestation: Single Presentation: Cephalic Cardiac Activity: 163 beats per minute Placental Location: Posterior low-lying Distance from Placental Tip to Cervix: 1.2 cm Cervical Length: 4.1 cm Amniotic Fluid: Appears adequate ANATOMY Four Chamber Heart: Unremarkable LVOT: Unremarkable RVOT: Unremarkable IMPRESSION: 1. Single, live intrauterine gestation 25 weeks, 6 days by LMP. KIRK is12/09/2024. 2. Unremarkable follow-up anatomy of the four-chamber heart and outflowtracts. 3. Low-lying placenta. Interpreted by: Electronically signed by SARAH COREA II, MD, PHD [id number] 11:47:56 PM [facility] us Benji Madhu DO IMG OB US PROCEDURES Final Resul t from Last 3 Months Insurance [employer] [place] Care Teams Shed Boss Relationship Specialty Start Date End Date Jenna Hanley NP Primary Care Provider Family Medicine 01/11/23
--- OUTSIDE RECORDS SUMMARY | 2024-11-12 19:36 | XMS_ITS | Encounter Summary ---
Author Organization [facility] Address [address] [place] [address] Care Team Providers Care Sign Board Erector Name Role Phone Jenna Hanley WHARF LABORER Unavailable Encounter Details Date Type Department Care Team (Late st Contact Info) Description 10/29/2024 Bamboo flowsheet [facility] OB [address] [place] [address] Benji Leung, [address] [place], [place] [address] Social History Tobacco Use Types Packs/Day Years [...] PM EDT Routine [facility] [address] [facility] [place] [address] Benji Leung, [address] [place] [address] documented as of this encounter Visit Diagnoses Not on filedocumented in this encounter Care Teams Sign Board Erector Relationship Specialty Start Date End Date Jenna Hanley NP Primary Care Provider Family Medicine 01/11/23 documented as of this encounter
--- OUTSIDE RECORDS SUMMARY | 2024-11-12 19:36 | XMS_ITS | Encounter Summary ---
Author Organization [facility] Address [address] [place] [address] Care Team Providers Care Steward/Stewardess Second Name Role Phone Jenna Hanley PRISON OFFICER Unavailable Encounter Details Date Type Department Care Team (Late st Contact Info) Description 06/03/2024 Abstract [facility] OB [address] [place] [address] Benji Leung, [facility] [place], [place] [address] Social History Tobacco Use Types Packs/Day Years [...] Description 11/19/2024 2:30 PM EDT Routine [facility] OB [address] [place] [address] Benji Leung, [address] [place] [address] documented as of this encounter Visit Diagnoses Not on filedocumented in this encounter Care Teams Steward/Stewardess Second Relationship Specialty Start Date End Date Jenna Hanley NP Primary Care Provider Family Medicine 01/11/23 documented as of this encounter
--- OUTSIDE RECORDS SUMMARY | 2024-11-12 19:36 | XMS_ITS | Encounter Summary ---
Author Organization [facility] Address [address] [place] [address] Care Team Providers Care Torpedoman'S Mate Name Role Phone Jenna Hanley SECRETARY ADMINISTRATIVE ASSISTANT Unavailable [phone] Encounter Details Date Type Department Care Team (Late st Contact Info) Description 06/24/2024 Abstract [facility] OB [address] [place] [address] Benji Leung, [facility] [place], [place] [address] Social History Tobacco Use Types Packs/Day Years [...] Description 11/19/2024 2:30 PM EDT Routine [facility] OB [address] [place] [address] Benji Leung, [address] [place] [address] documented as of this encounter Visit Diagnoses Not on filedocumented in this encounter Care Teams Torpedoman'S Mate Relationship Specialty Start Date End Date Jenna Hanley NP Primary Care Provider Family Medicine 01/11/23 documented as of this encounter
--- OUTSIDE RECORDS SUMMARY | 2024-11-12 19:36 | XMS_ITS | Encounter Summary ---
Author Organization [facility] Address [address] [place] [address] Care Team Providers Care Sugarcane Research Technician Name Role Phone Jenna Hanley SCIENTIST/ENGINEER Unavailable Encounter Details Date Type Department Care Team (Late st Contact Info) Description 06/11/2024 Abstract [facility] OB [address] [place] [address] Benji Leung, [facility] [place], [place] [address] Social History Tobacco Use Types Packs/Day Years [...] Description 11/19/2024 2:30 PM EDT Routine [facility] OB [address] [place] [address] Benji Leung, [address] [place] [address] documented as of this encounter Visit Diagnoses Not on filedocumented in this encounter Care Teams Sugarcane Research Technician Relationship Specialty Start Date End Date Jenna Hanley NP Primary Care Provider Family Medicine 01/11/23 documented as of this encounter
--- OUTSIDE RECORDS SUMMARY | 2024-11-12 19:36 | XMS_ITS | Encounter Summary ---
Author Organization [facility] Address [address] [place] [address] Care Team Providers Care Fiscal Technician Name Role Phone Jenna Hanley PHARMACOVIGILANCE SPECIALIST Unavailable [phone] Encounter Details Date Type Department Care Team (Late st Contact Info) Description 06/25/2024 Abstract [facility] OB [address] [place] [address] Benji Leung, [facility] [place], [place] [address] Social History Tobacco Use Types Packs/Day Years [...] Description 11/19/2024 2:30 PM EDT Routine [facility] OB [address] [place] [address] Benji Leung, [address] [place] [address] documented as of this encounter Visit Diagnoses Not on filedocumented in this encounter Care Teams Fiscal Technician Relationship Specialty Start Date End Date Jenna Hanley NP Primary Care Provider Family Medicine 01/11/23 documented as of this encounter
--- OUTSIDE RECORDS SUMMARY | 2024-11-12 19:36 | XMS_ITS | Encounter Summary ---
Author Organization [facility] Address [address] [place] [address] Care Team Providers Care Service Administrator Name Role Phone Jenna Hanley CLEARING TUB WORKER Unavailable Encounter Details Date Type Department Care Team (Late st Contact Info) Description 07/28/2024 Orders Only [facility] OB [address] [place] [address] Amber Vines MA Social History Tobacco Use Types Packs/Day Years [...] Description 11/19/2024 2:30 PM EDT Routine [facility] OB [address] [place] [address] Benji Leung, DO [address] [place], [place] [id number] documented as of this encounter Procedures Procedure Name Priority Date/Time Associated Diagnosis Comments PAP SMEAR Routine 07/16/2024 12:00 AM EST documented in this encounter Results * Pap Smear (07/16/2024 12:00 AM EST) Swab Cervical swab / Unknown us Susan [facility] CYTOLOGY ORDERABLES Final Re sult EXTERNAL LAB documented in this encounter Visit Diagnoses Not on filedocumented in this encounter Care Teams Service Administrator Relationship Specialty Start Date End Date Jenna Hanley NP Primary Care Provider Family Medicine 01/11/23 documented as of this encounter
--- OUTSIDE RECORDS SUMMARY | 2024-11-12 19:36 | XMS_ITS | Encounter Summary ---
Author Organization [facility] Address [address] [place] [address] Care Team Providers Care Fuel Distribution System Operator Name Role Phone Jenna Hanley PHOTO BOOTH OPERATOR Unavailable [phone] Encounter Details Date Type Department Care Team (Late Contact Info) Description 12/22/2022 Abstract [facility] [address] [place] [address] Denzel Sosa, DPM FACFAS [address] [place] [address] Social History Tobacco Use Types Packs/Day Years Used Date Smoking Tobacco: Never Smokeless Tobacco: Never Tobacco Cessation:Counseling Given: Not Answered Alcohol Use Standard Drinks/Week Comments Never 0 (1 standard drink = 0.6 oz pure alcohol) Caffeine: 1-2 cups/day tea, chocolate Comments Unknown Sex and Gender Information Value Date Recorded [...] [facility] OB [address] [place] [address] Benji Leung, [address] [place] [address] documented as of this encounter Visit Diagnoses Not on filedocumented in this encounter Care Teams Fuel Distribution System Operator Relationship Specialty Start Date End Date Jenna Hanley NP Primary Care Provider Family Medicine 01/11/23 documented as of this encounter
--- OUTSIDE RECORDS SUMMARY | 2024-11-12 19:36 | XMS_ITS | Encounter Summary ---
Author Organization [facility] Address [address] [place] [address] Care Team Providers Care Book Binder Name Role Phone Jenna Hanley EYEGLASS FRAMES INSPECTOR Unavailable [phone] Encounter Details Date Type Department Care Team (Late st Contact Info) Description 06/11/2024 Abstract [facility] OB [address] [place] [address] Benji Leung, [facility] [place], [place] [address] Social History Tobacco Use Types Packs/Day Years [...] Description 11/19/2024 2:30 PM EDT Routine [facility] OB [address] [place] [address] Benji Leung, [address] [place] [address] documented as of this encounter Visit Diagnoses Not on filedocumented in this encounter Care Teams Book Binder Relationship Specialty Start Date End Date Jenna Hanley NP Primary Care Provider Family Medicine 01/11/23 documented as of this encounter
--- OUTSIDE RECORDS SUMMARY | 2024-11-12 19:36 | XMS_ITS | Encounter Summary ---
Author Organization [facility] Address [address] [place] [address] Care Team Providers Care Rotary Machine Operator Name Role Phone Jenna Hanley HANGING FLAGS DECORATOR Unavailable Encounter Details Date Type Department Care Team (Late st Contact Info) Description 06/30/2024 Abstract [facility] OB [address] [place] [address] Benji Leung, [facility] [place], [place] [address] Social History Tobacco Use Types Packs/Day Years [...] Description 11/19/2024 2:30 PM EDT Routine [facility] OB [address] [facility] [place] [address] Benji Leung, [address] [place] [address] documented as of this encounter Visit Diagnoses Not on filedocumented in this encounter Care Teams Rotary Machine Operator Relationship Specialty Start Date End Date Jenna Hanley NP Primary Care Provider Family Medicine 01/11/23 documented as of this encounter
--- OUTSIDE RECORDS SUMMARY | 2024-11-12 19:36 | XMS_ITS | Encounter Summary ---
Author Organization [facility] Address [address] [place] [address] Care Team Providers Care Bioinformatics Technician Name Role Phone Jenna Hanley DOCK PUMPER Unavailable Encounter Details Date Type Department Care Team (Late st Contact Info) Description 11/12/2024 Bamboo flowsheet [facility] OB [address] [facility] [place] [address] Susan Montano PA [address] [place] [address] Dr [place], [place] [address] Social History Tobacco Use Types Packs/Day Years [...] EDT Routine [facility] OB [address] [facility] [place] [address] Benji Leung, [address] [place] [address] documented as of this encounter Visit Diagnoses Not on filedocumented in this encounter Care Teams Bioinformatics Technician Relationship Specialty Start Date End Date Jenna Hanley NP Primary Care Provider Family Medicine 01/11/23 documented as of this encounter
--- OUTSIDE RECORDS SUMMARY | 2024-11-12 19:36 | XMS_ITS | Encounter Summary ---
Author Organization [facility] Address [address] [place] [address] Care Team Providers Care Software Sales Representative Name Role Phone Jenna Hanley LAP GRINDER Unavailable [phone] Encounter Details Date Type Department Care Team (Late st Contact Info) Description 02/01/2024 Abstract [facility] [address] [place] [phone] Leighton Soriano DO [address] [place] [address] Social History Tobacco Use Types Packs/Day Years [...] Description 11/19/2024 2:30 PM EDT Routine [facility] OB [address] [facility] [place] [phone] Benji Leung DO [address] [place] [address] documented as of this encounter Visit Diagnoses Not on filedocumented in this encounter Care Teams Software Sales Representative Relationship Specialty Start Date End Date Jenna Hanley NP Primary Care Provider Family Medicine 01/11/23 documented as of this encounter
--- OUTSIDE RECORDS SUMMARY | 2024-11-12 19:36 | XMS_ITS | Encounter Summary ---
Author Organization [facility] Address [address] [place] [address] Care Team Providers Care Comber Fixer Name Role Phone Jenna Hanley CONTRACTS ADMINISTRATOR Unavailable Encounter Details Date Type Department Care Team (Late st Contact Info) Description 06/11/2024 Abstract [facility] OB [address] [place] [address] Benji Leung, [facility] [place], [place] [address] Social History Tobacco Use Types Packs/Day Years [...] Description 11/19/2024 2:30 PM EDT Routine [facility] OB [address] [place] [address] Benji Leung, [address] [place] [address] documented as of this encounter Visit Diagnoses Not on filedocumented in this encounter Care Teams Comber Fixer Relationship Specialty Start Date End Date Jenna Hanley NP Primary Care Provider Family Medicine 01/11/23 documented as of this encounter
--- OUTSIDE RECORDS SUMMARY | 2024-11-12 19:36 | XMS_ITS | Encounter Summary ---
Author Organization [facility] Address [address] [place] [address] Care Team Providers Care Supervisor Plate Pasting Name Role Phone Jenna Hanley BOX TOE BUFFER Unavailable Encounter Details Date Type Department Care Team (Late st Contact Info) Description 06/30/2024 Abstract [facility] OB [address] [place] [address] Benji Leung, [facility] [place], [place] [address] Social History Tobacco Use Types Packs/Day Years [...] Description 11/19/2024 2:30 PM EDT Routine [facility] OB [address] [facility] [place] [address] Benji Leung, [address] [place] [address] documented as of this encounter Visit Diagnoses Not on filedocumented in this encounter Care Teams Supervisor Plate Pasting Relationship Specialty Start Date End Date Jenna Hanley NP Primary Care Provider Family Medicine 01/11/23 documented as of this encounter
--- OUTSIDE RECORDS SUMMARY | 2024-11-12 19:36 | XMS_ITS ---
Author Organization [facility] Source Produ ction (ClinicalSummary Clone) Address Unknown Care Team Providers Care Window Covering Sales Consultant Name Role Phone Unavailable Primary Care Physician Unavailab le Results * [UNITY] ANEUPLOIDY NIPT Performed by: Propers Component Value Range Date Fraction 7.2% 08/13/2024 04 :05 pm UTC Rh(D) NIPT RhD DETECTED 08/13/2024 04:0 5 pm UTC Sex Chromosome Aneuploidy NOT DETECTED 04:05 pm UTC Monosomy X LOW RISK <1 in 10,000 2024 04:05 pm UTC Trisomy 13 LOW RISK <1 in 10,000 2024 04:05 pm UTC Trisomy 18 LOW RISK <1 in 10,000 2024 04:05 pm UTC Trisomy 21 LOW RISK <1 in 10,000 2024 04:05 pm UTC Sex FEMALE 08/13/2024 04:0 5 pm UTC Gestation CHEEMA 08/14/19 04:05 pm UTC This result reflects an amended result REVISED REPORT to include Rh(D) NIPT. 08/13/2024 04:05 pm UTC For detailed report, see PDF See PDF 08/13/2024 04:05 pm UTC 08/13/2024 04:0 5 pm UTC Social History Observation Value Start Date End Date
--- OUTSIDE RECORDS SUMMARY | 2024-11-12 19:36 | XMS_ITS | Encounter Summary ---
Author Organization [facility] Address [address] [place] [address] Care Team Providers Care Court Officer Name Role Phone Jenna Hanley LOCKSTITCH SHOULDER JOINER Unavailable [phone] Encounter Details Date Type Department Care Team (Late st Contact Info) Description 06/18/2024 Abstract [facility] OB [address] [place] [address] Benji Leung, [facility] [place], [place] [address] Social History Tobacco Use Types Packs/Day Years [...] Description 11/19/2024 2:30 PM EDT Routine [facility] OB [address] [place] [address] Benji Leung, [address] [place] [address] documented as of this encounter Visit Diagnoses Not on filedocumented in this encounter Care Teams Court Officer Relationship Specialty Start Date End Date Jenna Hanley NP Primary Care Provider Family Medicine 01/11/23 documented as of this encounter
--- OUTSIDE RECORDS SUMMARY | 2024-11-12 19:36 | XMS_ITS | Encounter Summary ---
Author Organization [facility] Address [address] [place] [address] Care Team Providers Care Salvage Winder And Inspector Name Role Phone Jenna Hanley BALANCE WHEEL MOTION INSPECTOR Unavailable [phone] Encounter Details Date Type Department Care Team (Late st Contact Info) Description 01/28/2024 Orders Only [facility] [address] [phone] Leighton Soriano, DO [address] [place] [address] Acute traumatic internal derangement of right knee, initial encounter (Primary Dx) Social History Tobacco Use Types Packs/Day Years [...] Description 11/19/2024 2:30 PM EDT Routine [facility] [address] [place] [address] [place] [address] Benji Leung [address] [place] [address] documented as of this encounter Visit Diagnoses Diagnosis Acute traumatic internal derangement of right knee, initial encounter- Primary documented in this encounter Care Teams Salvage Winder And Inspector Relationship Specialty Start Date End Date Jenna Hanley NP Primary Care Provider Family Medicine 01/11/23 documented as of this encounter
--- OUTSIDE RECORDS SUMMARY | 2024-11-12 19:36 | XMS_ITS | Encounter Summary ---
Author Organization [facility] Address [address] [place] [address] Care Team Providers Care Switch Operators Supervisor Name Role Phone Jenna Hanley COMPUTER NETWORK ENGINEER Unavailable Encounter Details Date Type Department Care Team (Late st Contact Info) Description 06/18/2024 Abstract [facility] OB [address] [place] [address] Benji Leung, [facility] [place], [place] [address] Social History Tobacco Use Types Packs/Day Years [...] Description 11/19/2024 2:30 PM EDT Routine [facility] OB [address] [place] [address] Benji Leung, [address] [place] [address] documented as of this encounter Visit Diagnoses Not on filedocumented in this encounter Care Teams Switch Operators Supervisor Relationship Specialty Start Date End Date Jenna Hanley NP Primary Care Provider Family Medicine 01/11/23 documented as of this encounter
--- OUTSIDE RECORDS SUMMARY | 2024-11-12 19:36 | XMS_ITS | Encounter Summary ---
Author Organization [facility] Address [address] [place] [address] Care Team Providers Care Secretary Receptionist Name Role Phone Jenna Hanley REAL ESTATE TRANSACTION MANAGER Unavailable Encounter Details Date Type Department Care Team (Late st Contact Info) Description 06/19/2024 Abstract [facility] OB [address] [place] [address] Benji Leung, [facility] [place], [place] [address] Social History Tobacco Use Types Packs/Day Years [...] Description 11/19/2024 2:30 PM EDT Routine [facility] OB [address] [facility] [address] Benji Leung, [address] [place] [address] documented as of this encounter Visit Diagnoses Not on filedocumented in this encounter Care Teams Secretary Receptionist Relationship Specialty Start Date End Date Jenna Hanley NP Primary Care Provider Family Medicine 01/11/23 documented as of this encounter
--- OUTSIDE RECORDS SUMMARY | 2024-11-12 19:36 | XMS_ITS ---
Author Organization [facility] Source Produ ction (ClinicalSummary Clone) Address Unknown Care Team Providers Care Bullet Lubricating Machine Operator Name Role Phone Unavailable Primary Care Physician Unavailab le Results * [UNITY] ANEUPLOIDY NIPT Performed by: Cadent Component Value Range Date Fraction 7.2% 06/11/2024 06 :32 am [facility] Sex Chromosome Aneuploidy NOT DETECTED 06:32 am [facility] Monosomy X LOW RISK <1 in 10,000 2024 06:32 am [facility] Trisomy 13 LOW RISK <1 in 10,000 2024 06:32 am UT Trisomy 18 LOW RISK <1 in 10,000 2024 06:32 am [facility] Trisomy 21 LOW RISK <1 in 10,000 2024 06:32 am [facility] Sex FEMALE 06/11/2024 06:3 2 am [facility] Gestation CHEEMA 06/11/19 06:32 am [facility] For detailed report, see PDF See PDF 06/11/2024 06:32 am [facility] 06/11/2024 06:3 2 am [facility] Social History Observation Value Start Date End Date
--- OUTSIDE RECORDS SUMMARY | 2024-11-12 19:36 | XMS_ITS | Encounter Summary ---
Author Organization [facility] Address [address] [place] [address] Care Team Providers Care Rag Inspector Name Role Phone Jenna Hanley RETORT UNLOADER Unavailable [phone] Encounter Details Date Type Department Care Team (Late st Contact Info) Description 10/08/2024 Abstract [facility] OB [address] [place] [address] Benji Leung, [facility] [place], [place] [address] Social History Tobacco Use Types Packs/Day Years [...] Description 11/19/2024 2:30 PM EDT Routine [facility] [address] [place] [address] Benji Leung, [address] [place] [address] documented as of this encounter Visit Diagnoses Not on filedocumented in this encounter Care Teams Rag Inspector Relationship Specialty Start Date End Date Jenna Hanley NP Primary Care Provider Family Medicine 01/11/23 documented as of this encounter
--- OUTSIDE RECORDS SUMMARY | 2024-11-12 19:36 | XMS_ITS | Encounter Summary ---
Author Organization [facility] Address [address] [place] [address] Care Team Providers Care Shell Molder Name Role Phone Jenna Hanley MASTER FISHER Unavailable Encounter Details Date Type Department Care Team (Late st Contact Info) Description 05/22/2024 Abstract [facility] OB [address] [place] [address] Benji Leung, [facility] [place], [place] [address] Social History Tobacco Use Types Packs/Day Years [...] Description 11/19/2024 2:30 PM EDT Routine [facility] OB [address] [place] [address] Benji Leung, [address] [place] [address] documented as of this encounter Visit Diagnoses Not on filedocumented in this encounter Care Teams Shell Molder Relationship Specialty Start Date End Date Jenna Hanley NP Primary Care Provider Family Medicine 01/11/23 documented as of this encounter
--- OUTSIDE RECORDS SUMMARY | 2024-11-12 19:36 | XMS_ITS | Encounter Summary ---
Author Organization [facility] Address [address] [place] [address] Care Team Providers Care Open Hearth Door Liner Name Role Phone Jenna Hanley BRICK PITCHER Unavailable Encounter Details Date Type Department Care Team (Late st Contact Info) Description 05/23/2024 Abstract [facility] OB [address] [place] [address] Benji Leung, [facility] [place], [place] [address] Social History Tobacco Use Types Packs/Day Years [...] Description 11/19/2024 2:30 PM EDT Routine [facility] OB [address] [facility] [address] Benji Leung, [address] [place] [address] documented as of this encounter Visit Diagnoses Not on filedocumented in this encounter Care Teams Open Hearth Door Liner Relationship Specialty Start Date End Date Jenna Hanley NP Primary Care Provider Family Medicine 01/11/23 documented as of this encounter
--- OUTSIDE RECORDS SUMMARY | 2024-11-12 19:36 | XMS_ITS ---
Author Organization [facility] Source Produ ction (ClinicalSummary Clone) Address Unknown Care Team Providers Care Licensed Social Worker Name Role Phone Unavailable Primary Care Physician Unavailab le Results * [UNITY] CARRIER SCREEN Performed by: [employer] Local Component Value Range Date Sickle Cell Disease/Beta-Thalassemia/Hemo globinopathies carrier screen NEGATIVE 06/15/2024 09:09 am [facility] Alpha-Thalassemia carrier screen NEGATIVE 06/15/2024 09:09 am [facility] Cystic Fibrosis carrier screen NEGATIVE 06/15/2024 09:09 am [facility] Spinal Muscular Atrophy carrier screen NEGATIVE 2 SMN1 copies, SNP not present 06/15/2024 09:09 am [facility] For detailed report, see PDF See PDF 06/15/2024 09:09 am [facility] 06/15/2024 09:0 9 am [facility] Social History Observation Value Start Date End Date
--- OUTSIDE RECORDS SUMMARY | 2024-11-12 19:36 | XMS_ITS | Encounter Summary ---
Author Organization [facility] Address [address] [place] [address] Care Team Providers Care Promotions Assistant Sales Marketing Name Role Phone Jenna Hanley FUSING MACHINE FEEDER Unavailable Encounter Details Date Type Department Care Team (Late st Contact Info) Description 11/28/2023 Clinisync Result Encounter [facility] External Department Unsolicited Alejandro Ayala PA [address] [place] [address] Social History Tobacco Use Types Packs/Day Years [...] 11/19/2024 2:30 PM EDT Routine [facility] OB [address] [place] [phone] Benji Leung, DO [address] [place], [place] [id number] documented as of this encounter Procedures Procedure Name Priority Date/Time Associated Diagnosis Comments MRI KNEE W/O CONTRAST RIGHT 11/28/2023 7:08 AM EDT documented in this encounter Results * MRI KNEE W/O CONTRAST RIGHT (11/28/2023 7:08 AM EDT) Anatomical Region Laterality Modality Other 11/28/2023 7:08 AM EDT Narrative 11/29/2023 10:15 AM EDT Exam Date/Time: 11/28/2023 07:44 EDT Reason for [...] 6 cm in craniocaudal dimension. Ordering Provider: Alejandro Ayala FINAL REPORT Dictated: 11/29/2023 10:12 am Matty Garcia DO Signed (Electronic Signature): 11/29/2023 10:12 am Signed by: Matty Garcia DO Transcribed by: NORMA Technologist: FIDEL Technical Comments None Procedure Note Radiology, Radiologist, - 11/29/2023 Exam Date/Time: 11/28/2023 07:44 EDT Reason for Exam: S83.104A [id number] Report IMPRESSION: HORIZONTAL TEAR OF THE BODY THROUGH POSTERIOR HORN OF THE MEDIALMENISCUS. EDEMA WITHIN POPLITEUS MUSCLE LIKELY REPRESENTS MILD MUSCLE STRAIN. Exam: MRI Knee w/o Contrast Right History: Knee pain since a pop 2 months ago Technique: Multiplanar multisequence MRI of the knee was performed withoutcontrast. Comparison: Radiographs 10/28/2023 Findings: Quadriceps and patellar tendons are intact. Moderate joint effusion. Anterior and posterior cruciate ligaments are intact. The medial collateral ligament, lateral collateral ligament, and popliteusare intact. Edema is present within popliteus muscle. Horizontal tear of the body through posterior horn of the medial meniscus.The lateral meniscus is intact. No well-defined or measurable cartilage defect identified. Popliteal fossa structures are intact. Sawyer's cyst measuresapproximately 2 cm in AP dimension by 1.5 cm in transverse dimension by 6 cm in craniocaudaldimension. Ordering Provider: Alejandro Ayala FINAL REPORT Dictated: 11/29/2023 10:12 am Matty Garcia DO Signed (Electronic Signature): 11/29/2023 10:12 am Signed by: Matty Garcia DO Transcribed by: NORMA Technologist: FIDEL Technical Comments None Alejandro [facility] Final Result documented in this encounter Visit Diagnoses Not on filedocumented in this encounter Care Teams Promotions Assistant Sales Marketing Relationship Specialty Start Date End Date Jenna Hanley NP Primary Care Provider Family Medicine 01/11/23 documented as of this encounter
--- OUTSIDE RECORDS SUMMARY | 2024-11-12 19:36 | XMS_ITS | Encounter Summary ---
Author Organization [facility] Address [address] [place] [address] Care Team Providers Care Propulsion Engineer Name Role Phone Jenna Hanley BARREL RIFLER HOOK Unavailable Encounter Details Date Type Department Care Team (Late st Contact Info) Description 06/11/2024 Abstract [facility] OB [address] [place] [address] Benji Leung, [facility] [place], [place] [address] Social History Tobacco Use Types Packs/Day Years [...] Description 11/19/2024 2:30 PM EDT Routine [facility] OB [address] [place] [address] Benji Leung, [address] [place] [address] documented as of this encounter Visit Diagnoses Not on filedocumented in this encounter Care Teams Propulsion Engineer Relationship Specialty Start Date End Date Jenna Hanley NP Primary Care Provider Family Medicine 01/11/23 documented as of this encounter
--- OUTSIDE RECORDS SUMMARY | 2024-11-12 19:37 | XMS_ITS | Encounter Summary ---
Author Organization [facility] Address [address] [facility] [place] [address] Care Team Providers Care Furniture Removalist Name Role Phone Jenna Hanley MEDICAL AFFAIRS LEADER Unavailable Encounter Details Date Type Department Care Team (Late st Contact Info) Description 09/09/2024 Results Follow-Up [facility] OB [address] [facility] [place] [address] Anisa Parker LPN [address] [facility] [place] [id number] Social History Tobacco Use Types Packs/Day Years [...] PM EDT documented as of this encounter Miscellaneous Notes * Result Encounter Note - Anisa Parker LPN - 09/09/2024 11:57 AM EDT Pt already aware. documented in this encounter Plan of Treatment Upcoming Encounters Date Type Department Care Team (Late st Contact Info) Description 11/19/2024 2:30 PM EDT Routine [facility] OB [address] [facility] [place] [address] Benji Leung, [address] [facility] [place] [address] documented as of this encounter Visit Diagnoses Not on filedocumented in this encounter Care Teams Furniture Removalist Relationship Specialty Start Date End Date Jenna Hanley NP Primary Care Provider Family Medicine 01/11/23 documented as of this encounter
--- OUTSIDE RECORDS SUMMARY | 2024-11-12 19:37 | XMS_ITS | Encounter Summary ---
Author Organization [facility] Address [address] [place] [address] Care Team Providers Care Director Workforce Management Name Role Phone Jenna Hanley MAIL CALLER Unavailable [phone] Encounter Details Date Type Department Care Team (Late st Contact Info) Description 08/13/2024 Abstract [facility] OB [address] [place] [address] Benji Leung, [facility] [place], [place] [address] Social History Tobacco Use Types Packs/Day Years [...] Description 11/19/2024 2:30 PM EDT Routine [facility] OB [address] [facility] [place] [address] Benji Leung, [address] [place] [address] documented as of this encounter Visit Diagnoses Not on filedocumented in this encounter Care Teams Director Workforce Management Relationship Specialty Start Date End Date Jenna Hanley NP Primary Care Provider Family Medicine 01/11/23 documented as of this encounter
--- OUTSIDE RECORDS SUMMARY | 2024-11-12 19:37 | XMS_ITS | Clinical Summary ---
Author Organization [facility] Address [id number] [address] [place] [address] Care Team Providers Care Production Pattern Maker Name Role Phone Pcp, Not In System Primary Care Provider Unavail able Allergies No known active allergies Medications No known medications Active Problems Problem Noted Date Diagnosed Date Acute urinary retention 06/02/2022 Social History Tobacco Use Types Packs/Day Years Used Date Smoking Tobacco: Never Smokeless Tobacco: Never Tobacco Cessation:Counseling Given: Not Answered Alcohol Use Standard Drinks/Week Comments Not Currently 0 (1 standard drink = 0.6 oz pur e alcohol) Hunger Screening Answer Date Recorded Within the past 12 months we worried whether our food would run out before we got money to buy more. Never True 06/02/2022 Within the past 12 months th e food we bought just didn't last and we didn't have money to get more. Never True 06/02/2022 Comments Unknown Sex and Gender Information Value Date Recorded Sex Assigned at Not on file Legal Sex Female 6:21 AM EST Gender Identity Not on file Sexual Orientation Not on file Last Filed Vital Signs Vital Sign Reading Time Taken Comments Blood Pressure 110/72 06/02/2022 11:32 AM EST Pulse 100 06/02/2022 11:32 AM EST Temperature 36.8 C (98.3 F) 06/02/2022 7:44 AM EST Respiratory Rate 18 06/02/2022 11:32 AM EST Oxygen Saturation 98% 06/02/2022 11:32 AM EST Inhaled Oxygen Concentration - - Weight 83.9 kg (185 lb) 06/02/2022 6:28 AM EST Height 182.9 cm (6') 06/02/2022 6:28 AM EST Body Mass Index 25.09 06/02/2022 6:28 AM EST Plan of Treatment Health Maintenance Due Date Last Done Comments Depression Screening 2015 Tobacco Screening 2015 DTaP,Tdap and Td Vaccines (1 - Tdap) 2022 Adult BMI Screening 06/02/2023 06/02/2022 Pap Smear 2024 Influenza Vaccine 01/19/2025 Medical Devices Not on file Insurance [employer] Care Teams Production Pattern Maker Relationship Specialty Start Date End Date Pcp, Not In System FESTUS Orozco [id number] PCP - General Family Medicine 06/02/22
--- OUTSIDE RECORDS SUMMARY | 2024-11-12 19:53 | XMS_ITS | CCD ---
Author Organization [facility] Care Team Providers Care Outbound Telemarketer Name Role Phone Morro Hauser Unavailable MORRO [...] Attending Unavailable MADHU, DR VALVERDE Admitting Unavailable DR BENJI LEUNG Consulting Unavailable WINNIE Hauser Primary Care Provider [phone] WINNIE Greenberg Emergency Provider Racheal Greenberg Unavailable Rupert Soriano Attending Unavailable Morro Hauser MD Unavailable Percy Mendoza Attending Unavailable Percy Mendoza Admitting Unavailable Morro Hauser NP Unavailable Morro Hauser NP Unavailable [phone] BENJI LEUNG Attending Unavailable SUSAN MONTANO Attending Unavailable BENJI LEUNG Attending Unavailable BENJI LEUNG Referring Unavailable JESSY CRUZ Attending Unavailable BENJI LEUNG Attending Unavailable BENJI LEUNG Referring Unavailable SUSAN MONTANO Attending Unavailable BENJI LEUNG Attending Unavailable SAMPSON AYALA [...] Twice a day as needed Active azaTHIOprine (20 sources) Purine Antimetabolite Start: 01-07-2023 Azathioprine Active [...] Nov, Active metoclopramide 10 mg oral tablet (20 sources) Dopamine-2 Receptor Antagonist Start: 05-15-2024 End: 06-14-2024 metoclopramide (Reglan) 10 MG tablet Indications: Nausea and vomiting during ([facility]) Take 1 tablet (10 mg) by mouth in the morning and 1 tablet (10 mg) at noon and 1 tablet (10 mg) in the evening. Take before meals. Take 1 tablet by mouth 30 minutes prior to meals 3 times daily as needed for nausea.. 90 tablet 3 05/15/2024 Active metroNIDAZOLE 500 mg oral tablet (4 sources) Nitroimidazole Antimicrobial Start: 07-17-2024 End: 07-24-2024 take 1 tablet by mouth in the morning metroNIDAZOLE (Flagyl) 500 MG tablet Indications: BV (bacterial vaginosis) Take 1 tablet (500 mg) by mouth in the morning and 1 tablet (500 mg) before bedtime. Do all this for 7 days. Do not drink alcohol while taking this medication. 14 tablet 07/17/2024 07/24/2024 Active Start: 06-02-2022 End: 06-09-2022 Metronidazole (Flagyl) 250 m g Tablet Discontinued MG TABLET June 02, 2022 1:00am June 09, 2022 3:36pm nitrofurantoin, macrocrystals 25 mg / nitrofurantoin, monohydrate [...] Active ondansetron 4 mg disintegrating oral tablet (20 sources) Serotonin-3 Receptor Antagonist Start: 06-23-2024 take 1 tablet by mouth every eight hours as needed for nausea and vomiting and nausea and nausea ondansetron ODT (Zofran-ODT) 4 MG disintegrating tablet Indications: Nausea Take 1 tablet (4 mg) by mouth every 8 (eight) hours if needed for nausea or vomiting 20 tablet 3 07/24/2024 Active Start: 04-29-2024 take 1 tablet by [facility] every eight hours as needed for nausea [...] MG tablet Indications: Nausea and vomiting during ([facility]) Take 1 tablet (12.5 mg) by mouth [...] Nucleoside Analog DNA Polymerase Inhibitor Start: 12-26-2023 End: 10-30-2024 take 1 tablet by mouth once daily [...] 2023 11:16am [facility] hours valACYclovir HCl 500 MG 2 tablets Orally three times a day Active Completed/Discontinued Medications Medication Drug Class(es) Dates Sig (Normalized) Sig (Original) acetaminophen 325 mg / HYDROcodone bitartrate 5 mg oral tablet (2 sources) Opioid Agonist Start: 01-28-2024 End: 02-11-2024 take 1-2 tablets by mouth every four hours for pain HYDROcodone-acetam inophen ([place]) 5-325 MG tablet Indications: Acute traumatic internal [...] Daily 28 tablet 11 04/16/2024 04/16/2025 Active Ibuprofen (2 sources) Nonsteroidal Anti-inflammatory Drug Start: 06-02-2022 End: 01-07-2023 Ibuprofen Discontinued MG TABLET June 02, 2022 1:00am January 07, 2023 11:16am Start: 06-02-2022 Ibuprofen Acti ve MG TABLET June 02, 2022 12:00am polyethylene glycol 3350 01590 mg powder for oral solution (2 sources) [...] retention of urine] Onset: 06-15-2022 06-02-2022 Episodic Hemorrhage during ; abruptio placenta; placenta previa (4 sources) Low lying placenta; Translations: [Low lying placenta NOS or without hemorrhage, unspecified trimester] 09-10-2024 Episodic Immunizations and screening for infectious disease [...] [Juvenile idiopathic scoliosis, 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 Other complications of (2 sources) size does not accord with dates; Translations: [Uterine size-date discrepancy, unspecified trimester] 09-30-2024 Episodic Other connective tissue disease (8 sources) Swelling [...] 06-09-2022 Episodic Other and delivery including normal (18 sources) ; Translations: [Encounter for supervision of normal , unspecified, unspecified trimester] 05-20-2024 Episodic Other screening for suspected conditions (not mental disorders or infectious disease) (4 sources) Patient encounter status; Translations: [Encounter for [...] [19 weeks gestation of ] 07-16-2024 Episodic Residual codes; unclassified (2 sources) Gestation period, 23 weeks; Translations: [23 weeks gestation of ] 08-13-2024 Episodic Residual codes; unclassified (2 sources) Gestation period, 27 weeks; Translations: [27 weeks gestation of ] 09-10-2024 Episodic Residual codes; unclassified (2 sources) Gestation period, 30 weeks; Translations: [30 weeks gestation of ] 09-30-2024 Episodic Residual codes; unclassified (2 sources) Gestation period, 32 weeks; Translations: [32 weeks gestation of ] 10-16-2024 Episodic Residual codes; unclassified (2 sources) Gestation period, 34 weeks; Translations: [34 weeks gestation of ] 10-29-2024 Episodic Sprains and strains (2 sources) Sprain [...] Test Name Value Interpretation Reference Range Facility US OB FOLLOW UP TRANSABDOMIN AL APPROACHon 10-16-2024 US OB FOLLOW UP TRANSABDOMINAL APPROACH EXAM: US OB FOLLOW UP TRANSABDOMINAL APPROACH [...] 12/10/2024. Interpreted by: Electronically signed by SARAH OCREA II, MD, PHD at 17-Oct-2024 11:53:40 AM [facility] Normal Not Available Comment on above: Order Comment: US OB SCAN FOR GROWTH Estimated Date of Delivery: 12/09/24 Gestational Age as of 09/30/2024: 30w0d ALL CBC WITH AUTO DIFFon BASOPHILS ABSOLUTE AUTO 0.1 [facility] Basophils/100 WBC (Bld) 0.7 % 0.2 - 2.0 % [facility] Eosinophils/100 WBC (Bld) 0.7 % Low 0.9 - 7.0 % [facility] Erythrocyte distribution width (RBC) [Ratio] 12.3 % 11.0 - 15.0 % [facility] Hematocrit (Bld) [Volume fraction] 34.9 % Low 36.0 - 48.0 % [facility] Hemoglobin (Bld) [Mass/Vol] 11.7 g/dL Low 12.0 - 16.0 g/dL [facility] IMMATURE GRANULOCYTES ABS AUTO 0.16 High [facility] Immature granulocytes/100 WBC (Bld) 1.7 % High 0.0 - 0.5 % [facility] Interpretation and review of laboratory results Abnormal [facility] LYMPHOCYTES ABSOLUTE AUTO 1.7 [facility] Lymphocytes/100 WBC (Bld) 17.5 % Low 20.5 - 60.0 % [facility] MCH (RBC) [Entitic mass] 30.6 pg 26.7 - 34.0 pg [facility] MCHC (RBC) [Mass/Vol] 33.5 g/dL 29.9 - 35.2 g/dL [facility] MCV (RBC) [Entitic vol] 91.4 fL 81.0 - 99.0 fL [facility] MONOCYTES ABSOLUTE AUTO 0.8 [facility] Monocytes/100 WBC (Bld) 8.4 % 1.7 - 12.0 % [facility] NEUTROPHILS ABSOLUTE AUTO 6.8 High [facility] Neutrophils/100 WBC (Bld) 71 % 43.0 - 75.0 % [facility] Platelet mean volume (Bld) [Entitic vol] 11.3 fL 9.5 - 13.5 fL [facility] EO # 0.1 [facility] TBH PLT 198 [facility] RBC 3.82 Low [facility] TB WBC 9.6 [facility] Urinalysis macro (dipstick) panel (U)on 09-10-2024 Bilirubin, UA Negative Negative - 4(70) +++ mg/dL [facility] Blood, UA Negative Negative - 50 Timmy/mcL [facility] Clarity, UA Clear [facility] Color, UA Yellow [facility] Glucose, UA Negative Negative - 2000(110) ++++ mg/dL [facility] Interpretation and review of laboratory results Normal [facility] Ketones, UA Negative Negative - 160(16) ++++ mg/dL [facility] Leukocytes, UA Negative Negative - 500+++ Hilda/mcL [facility] Nitrite, UA Negative Negative - Positive [facility] pH, UA 7 5 - 9 [facility] Protein, UA Negative Negative - 2000(20) ++++ mg/dL [facility] Spec Grav, UA 1.02 1 - 1.03 [facility] Urobilinogen, UA 2.0 0.2 - 12 mg/dL [facility] US OB LIMITED 1+ FETUSESon 0 09-01-2024 US OB LIMITED 1+ FETUSES EXAM: US OB LIMITED 1+ FETUSES HISTORY: [...] 25 weeks, 6 days by LMP. KIRK is 12/09/2024. 2. Unremarkable follow-up anatomy of the four-chamber heart and outflow tracts. 3. Low-lying placenta. Interpreted by: Electronically signed by SARAH COREA II, MD, PHD at 01-Sep-2024 11:47:56 PM [facility] Normal Not Available Comment on above: Order Comment: US OB PLACENTA W US OB TRANSVAGINAL Estimated Date of Delivery: 12/09/24 Gestational Age as of 07/31/2024: 21w2d Urinalysis macro (dipstick) panel (U)on 08-13-2024 Bilirubin, UA Negative Negative - 4(70) +++ mg/dL [facility] Blood, UA Negative Negative - 50 Timmy/mcL [facility] Clarity, UA Clear [facility] Color, UA Yellow [facility] Glucose, UA Negative Negative - 2000(110) ++++ mg/dL [facility] Interpretation and review of laboratory results Normal [facility] Ketones, UA Negative Negative - 160(16) ++++ mg/dL [facility] Leukocytes, UA Negative Negative - 500+++ Hilda/mcL [facility] Nitrite, UA Negative Negative - Positive [facility] pH, UA 8.5 5 - 9 [facility] Protein, UA Negative Negative - 2000(20) ++++ mg/dL [facility] Spec Grav, UA 1.015 1 - 1.03 [facility] Urobilinogen, UA 2.0 0.2 - 12 mg/dL [facility] No Panel InformationOrdered By: Radiologist Radiology on 07-23-2024 [facility] Work Phone: No Panel Informationon 07-23 Radiology Study observation (narrative) [facility] US OB ANATOMYon 07-23-2024 [place] [address] Ultrasound Report Signed Patient: HEENA WANG MR#: [id number] : 2005 Acct:[id number] Age/Sex: 19 / F ADM Date: 07/23/24 Loc: US Attending Dr: Susan Montano Ordering Physician: Susan Montano Date of Service: 07/23/24 Procedure(s): US OB anatomy Accession Number(s): [id number] cc: Susan Montano; Morro Hauser NP [place] [id number] Patient Name: HEENA WANG MRN: [id number] date: 2005 Sex: F Assigned Patient Location: US Current Patient Location: LAB Accession/Order Number: [id number] Exam Date: 07/23/2024 16:03 Report Date: 07/23/2024 16:13 At the request of: SUSAN MONTANO Procedure: US OB cervical length Anatomy scan. Cervical length ultrasounds. Reason for exam: Anatomy scan. TECHNIQUE: Transabdominal imaging of the gravid uterus was obtained. FINDINGS: Single live intrauterine measuring 20 weeks 2 days by anatomic measurements is present with a heart rate 154 bpm. Appropriate growth for dating. ISHA is subjectively normal. position is breech with lie longitudinal. Spine was not imaged due to positioning. Outflow tracts are suboptimal. Four-chamber heart is noted. No ventriculomegaly. Brain structures appear grossly unremarkable. Kidneys appear unremarkable. Three-vessel cord is noted. All 4 extremities are seen. Nasal bone is present. The placenta is posterior in location with its tip approximately 6 mm from the internal os. Cervical length is normal at 3.9 cm without funneling. US/US OB anatomy IMPRESSION: Incomplete survey with spine not imaged and outflow tracts suboptimally visualized. Limited ultrasound for completion of the anatomic survey in one to 2 weeks is suggested. Placenta is posterior in location with tip approximately 6 mm from the internal os. Attention on follow-up ultrasound is suggested. Cervical length measuring 3.9 cm without funneling. Impression dictated by: Ranulfo You Jr., D.O.07/23/2024 4:13 PM Dictation Location: [place] [address] Electronically authenticated by: [id number] Y Date: 07/23/2024 16:13 Dictated By: Ranulfo You M.D. Signed By: 07/23/246 DD/ 12 TD/TT: Visitor Service Assistant: [facility] Radiology, Radiologi MD levi - 07/23/[address] [address] Ultrasound Report Signed Patient: HEENA WANG MR#: [id number] : 2005 Acct:[id number] Age/Sex: 19 / F ADM Date: 07/23/24 Loc: US Attending Dr: Susan Montano Ordering Physician: Susan Montano Date of Service: 07/23/24 Procedure(s): US OB anatomy Accession Number(s): [id number] cc: Susan Montano; Morro Hauser NP The [address] [address] Patient Name: HEENA WANG MRN: [facility]:[id number] date: 2005 Sex: F Assigned Patient Location: US Current Patient Location: LAB Accession/Order Number: [id number] Exam Date: 07/23/2024 16:03 Report Date: 07/23/2024 16:13 At the request of: SUSAN MONTANO Procedure: US OB cervical length Anatomy scan. Cervical length ultrasounds. Reason for exam: Anatomy scan. TECHNIQUE: Transabdominal imaging of the gravid uterus was obtained. FINDINGS: Single live intrauterine measuring 20 weeks 2 days by anatomic measurements is present with a heart rate 154 bpm. Appropriate growth for dating. ISHA is subjectively normal. position is breech with lie longitudinal. Spine was not imaged due to positioning. Outflow tracts are suboptimal. Four-chamber heart is noted. No ventriculomegaly. Brain structures appear grossly unremarkable. Kidneys appear unremarkable. Three-vessel cord is noted. All 4 extremities are seen. Nasal bone is present. The placenta is posterior in location with its tip approximately 6 mm from the internal os. Cervical length is normal at 3.9 cm without funneling. US/US OB anatomy IMPRESSION: Incomplete survey with spine not imaged and outflow tracts suboptimally visualized. Limited ultrasound for completion of the anatomic survey in one to 2 weeks is suggested. Placenta is posterior in location with tip approximately 6 mm from the internal os. Attention on follow-up ultrasound is suggested. Cervical length measuring 3.9 cm without funneling. Impression dictated by: Ranulfo You Jr., Emilee07/23/2024 4:13 PM Dictation Location: [place] [address] Electronically authenticated by: [id number] Y Date: 07/23/2024 16:13 Dictated By: Ranulfo You M.D. Signed By: 07/23/24 1616 DD/ 161 TD/TT: Visitor Service Assistant: [facility] [place] [address] Ultrasound Report Signed Patient: HEENA WANG MR#: [id number] : 2005 Acct:[id number] Age/Sex: 19 / F ADM Date: 07/23/24 Loc: US Attending Dr: Susan Montano Ordering Physician: Susan Montano Date of Service: 07/23/24 Procedure(s): US OB cervical length Accession Number(s): [id number] cc: Susan Montano; Morro Hauser NP [address] [address] Patient Name: HEENA WANG MRN: [facility]:[id number] date: 2005 Sex: F Assigned Patient Location: Current Patient Location: LAB Accession/Order Number: [id number] Exam Date: 07/23/2024 16:03 Report Date: 07/23/2024 16:13 At the request of: SUSAN MONTANO Procedure: US OB cervical length Anatomy scan. Cervical length ultrasounds. Reason for exam: Anatomy scan. TECHNIQUE: Transabdominal imaging of the gravid uterus was obtained. FINDINGS: Single live intrauterine measuring 20 weeks 2 days by anatomic measurements is present with a heart rate 154 bpm. Appropriate growth for dating. ISHA is subjectively normal. position is breech with lie longitudinal. Spine was not imaged due to positioning. Outflow tracts are suboptimal. Four-chamber heart is noted. No ventriculomegaly. Brain structures appear grossly unremarkable. Kidneys appear unremarkable. Three-vessel cord is noted. All 4 extremities are seen. Nasal bone is present. The placenta is posterior in location with its tip approximately 6 mm from the internal os. Cervical length is normal at 3.9 cm without funneling. US/US OB cervical length IMPRESSION: Incomplete survey with spine not imaged and outflow tracts suboptimally visualized. Limited ultrasound for completion of the anatomic survey in one to 2 weeks is suggested. Placenta is posterior in location with tip approximately 6 mm from the internal os. Attention on follow-up ultrasound is suggested. Cervical length measuring 3.9 cm without funneling. Impression dictated by: Jovany Penny Jr.OChato07/23/2024 4:13 PM Dictation Location: [place] [address] Electronically authenticated by: [id number] Y Date: 07/23/2024 16:13 Dictated By: Ranulfo You M.D. Signed By: 07/23/24 1616 DD/ 1613 TD/TT: Visitor Service Assistant: [facility] RadiologyErikoggenna sims MD - 07/23/[address] [address] Ultrasound Report Signed Patient: HEENA WANG MR#: [id number] : 2005 Acct:[id number] Age/Sex: 19 / F ADM Date: 07/23/24 Loc: US Attending Dr: Susan Montano Ordering Physician: Susan Montano Date of Service: 07/23/24 Procedure(s): US OB cervical length Accession Number(s): [id number] cc: Susan Montano; Morro Hauser NP [address] [address] Patient Name: HEENA WANG MRN: [facility]:[id number] date: 2005 Sex: F Assigned Patient Location: US Current Patient Location: LAB Accession/Order Number: [id number] Exam Date: 07/23/2024 16:03 Report Date: 07/23/2024 16:13 At the request of: SUSAN MONTANO Procedure: US OB cervical length Anatomy scan. Cervical length ultrasounds. Reason for exam: Anatomy scan. TECHNIQUE: Transabdominal imaging of the gravid uterus was obtained. FINDINGS: Single live intrauterine measuring 20 weeks 2 days by anatomic measurements is present with a heart rate 154 bpm. Appropriate growth for dating. ISHA is subjectively normal. position is breech with lie longitudinal. Spine was not imaged due to positioning. Outflow tracts are suboptimal. Four-chamber heart is noted. No ventriculomegaly. Brain structures appear grossly unremarkable. Kidneys appear unremarkable. Three-vessel cord is noted. All 4 extremities are seen. Nasal bone is present. The placenta is posterior in location with its tip approximately 6 mm from the internal os. Cervical length is normal at 3.9 cm without funneling. US/US OB cervical length IMPRESSION: Incomplete survey with spine not imaged and outflow tracts suboptimally visualized. Limited ultrasound for completion of the anatomic survey in one to 2 weeks is suggested. Placenta is posterior in location with tip approximately 6 mm from the internal os. Attention on follow-up ultrasound is suggested. Cervical length measuring 3.9 cm without funneling. Impression dictated by: Ranulfo You Jr., D.O.07/23/2024 4:13 PM Dictation Location: [place] [address] Electronically authenticated by: [id number] Y Date: 07/23/2024 16:13 Dictated By: Ranulfo You M.D. Signed By: 07/23/24 1616 DD/ 12 TD/TT: Visitor Service Assistant: [facility] IGP,APTIMA HPV,AGE GDLNon AGE GDLN ACOG TESTING Note . [facility] Comment on above: TESTS RESULT FLAG [facility] REF RANGE LAB Clinician Provided Cytology Information Source.............Cervix Other.............. No. of containers..01 ThinPrep Vial Age Algo ACOG Idania... FLAG LEGEND: L-Low Normal,H-High Normal,LL-Alert Low,HH-Alert High <-Panic Low,>-Panic High,A-Abnormal,AA-Critical Abnormal Performed at: 01 =G [address] [address] Evelyn Arnold MD, IGP, RFX APTIMA HPV ASCU Note . [facility] Comment on above: TESTS RESULT FLAG [facility] REF RANGE LAB DIAGNOSIS: 02 NEGATIVE FOR INTRAEPITHELIAL LESION OR MALIGNANCY. Specimen adequacy: 02 Satisfactory for evaluation. Endocervical and/or squamous metaplastic cells (endocervical component) are present. Performed by: Corrine Espinosa, Tamper Operator (ASCP) . 02 Note: Note 03 The Pap [...] High,A-Abnormal,AA-Critical Abnormal Performed at: 02 [facility] [address] [employer] [place] [address] Shad East MD, 03 WB [facility] [address] [address] Evelyn Arnold MD, Performed at: =G - [facility] [address] [id number] Window Glass Installer: Evelyn Arnold MD, Phone: [phone] Performed at: CYT - [facility] [address] [place], [place] [id number] Window Glass Installer: Shad East MD, Phone: [phone] SPATULA-ALONE CERVIX [facility] RECURRENT VAGINITIS (HTRX)on 07-17-2024 ATOPOBIUM VAGINAE 0 [facility] ATOPOBIUM VAGINAE Not detected [facility] BVAB 2,3 (BACTERIAL VAGINOSIS ASSOCIATED BACTERIA 2, 3); MOBILUNCUS SPP 0 [facility] BVAB 2,3 (BACTERIAL VAGINOSIS ASSOCIATED BACTERIA 2, 3); MOBILUNCUS SPP Not detected [facility] ISSAC ALBICANS, PARAPSILOSIS, TROPICALIS 0 [facility] ISSAC ALBICANS, PARAPSILOSIS, TROPICALIS Not detected [facility] ISSAC GLABRATA 0 [facility] ISSAC GLABRATA Not detected [facility] ISSAC KRUSEI 0 [facility] ISSAC KRUSEI Not detected [facility] CHLAMYDIA TRACHOMATIS 0 [facility] CHLAMYDIA TRACHOMATIS Not detected N [facility] GARDNERELLA VAGINALIS 0 [facility] GARDNERELLA VAGINALIS Not detected N [facility] Interpretation and review of laboratory results Abnormal [facility] MEGASPHAERA (TYPES 1, 2) 28.119 Abnormal [facility] MEGASPHAERA (TYPES 1, 2) Detected Abnormal [facility] MYCOPLASMA GENITALIUM 0 [facility] MYCOPLASMA GENITALIUM Not detected N [facility] NEISSERIA GONORRHOEAE 0 [facility] NEISSERIA GONORRHOEAE Not detected N [facility] TRICHOMONAS VAGINALIS 0 [facility] TRICHOMONAS VAGINALIS Not detected N [facility] Urinalysis macro (dipstick) panel (U)on 07-16-2024 Bilirubin, UA Negative Negative - 4(70) +++ mg/dL [facility] Blood, UA Negative Negative - 50 Timmy/mcL [facility] Clarity, UA Clear [facility] Color, UA Yellow [facility] Glucose, UA Negative Negative - 1999(110) ++++ mg/dL [facility] Interpretation and review of laboratory results Abnormal [facility] Ketones, UA Positive Negative - 160(16) ++++ mg/dL [facility] Leukocytes, UA Negative Negative - 500+++ Hilda/mcL [facility] Nitrite, UA Negative Negative - Positive [facility] pH, UA 6.5 5 - 9 [facility] Protein, UA Negative Negative - 1999(20) ++++ mg/dL [facility] Spec Grav, UA 1.02 1 - 1.03 [facility] Urobilinogen, UA 1.0 0.2 - 12 mg/dL [facility] Urinalysis macro (dipstick) panel (U)on 06-17-2024 Bilirubin, UA Negative Negative - 4(70) +++ mg/dL [facility] Blood, UA Negative Negative - 50 Timmy/mcL [facility] Clarity, UA Clear [facility] Color, UA Yellow [facility] Glucose, UA Negative Negative - 1999(110) ++++ mg/dL [facility] Interpretation and review of laboratory results Abnormal [facility] Ketones, UA Positive Negative - 160(16) ++++ mg/dL [facility] Comment on above: 15 Leukocytes, UA Trace Negative - 500+++ Hilda/mcL [facility] Nitrite, UA Negative Negative - Positive [facility] pH, UA 8.5 5 - 9 [facility] Protein, UA Positive Negative - 1999(20) ++++ mg/dL [facility] Comment on above: 30 Spec Grav, UA 1.02 1 - 1.03 [facility] Urobilinogen, UA >=8.0 0.2 - 12 mg/dL [facility] BOX TESTon 06-04-2024 BOX TEST SENT OUT [facility] BOX1 [facility] BOX2 06/04/24 [facility] BOX [facility] HCG ( test) Ql (U)o n 05-20-2024 Interpretation and review of laboratory results Abnormal [facility] Preg Test, Ur Positive Negative [facility] Urine Cultureon 05-14-2024 Bacteria identified Cx Nom (U) 30,000 colonies/ml mixed bacterial skin contaminants 2 Days PERFORMED BY: [place] [address] PATHOLOGIST MANAGER OF NETWORK LIDIA ZHENG M.D. Normal [facility] Comment on above: Performed By: #### C UU #### [address] Laboratory - Chemistry and C hemistry - challengeon 04-08-2024 Bilirubin Ql (U) 1+ Negative [facility] Glucose [Mass/Vol] Negative Negative [facility] Ketones Ql (U) Negative Negative [facility] pH (U) 7 [pH] 5.0 - 6.0 [facility] Specific gravity (U) [Rel density] 1.015 1.001 - 1.035 [facility] Laboratory - Hematology and Cell countson 04-08-2024 Hemoglobin Ql (U) + Negative [facility] - Urinalysison 11 -19-2024 Nitrite Ql (U) Negative Negative [facility] Protein Ql (U) 1+ Negative [facility] No Panel Informationon 04-08 Interpretation and review of laboratory results Abnormal [facility] LEUKOCYTES 1+ Negative [facility] UROBILINOGEN 2+ 0.2 - 1.0 [facility]ly [facility] ED Note-Physicianon 10-29-19 ED Note-Physician Basic Information [...] Rivera In 3 days 10/31/2023 EDT [address] [place] [address]- Business (1) Additional Instructions: MORRO HAUSER In 3 days [address] [place] [address]- [phone] Business (1) Additional Instructions: Patient Education Knee Sprain, Adult How to Use a Knee Immobilizer Radial Nerve Palsy Crutch Use, Adult, Wyra-xl-Dagi Attestation I performed a subst (more content not included)... Normal [facility] Comment on above: Result Comment: Elec tronically Signed By: Alejandra Sun PA-C\.br\Date and Time Signed: 10/28/23 16:45 EDT\.br\Electronically Co-Signed By: Rupert Soriano DO\.br\Date and Time Co-Signed: 10/29/23 08:08 EDT Consent for Treatmenton Consent for Treatment [id number] [facility] Discharge Instructionson Discharge Instructions [id number] [facility] ED Clinical Summaryon 2023 ED Clinical Summary (Inserted Image. Judith ble to display) [facility] [address] [place], [place] [address] ED Clinical Summary Person Information Name: HEENA WANG [facility] Age: 18 Years : 2005 Sex: Female Language: Hungarian PCP: MORRO HAUSER CNP Marital Status: Single [...] 10/28/2023 12:35:22 10/28/2023 12:35:22 10/28/2023 12:35:22 ADDRESS: [facility] [place] [id number] PHYS DOC NOTES: MEDICAL INFORMATION: Prescriptions Given: PATIENT EDUCATION INFORMATION: Instructions: Knee Sprain, Adult; How to Use a Knee Immobilizer; Radial Nerve Palsy; Crutch Use, Adult, Umwn-xd-Appv Follow up: With: Address: When: Rayne Rivera [address] [place] [phone] Business (1) In 3 days 10/31/2023 With: Address: When: MORRO [address] [address] [phone] Business (1) In 3 days DIAGNOSIS: 1:Strain of right knee Normal [facility] ED Patient Education Noteon 10-28-2023 ED [...] or lying down. General instructions ? Take quqf-wqh-papwoce and prescription medicines only as told by [...] provider. Document Revised: 08/14/2022 Document Reviewed: 03/26/2020 [employer] Patient Education ? 2022 [employer] How to Use a Knee Immobilizer [...] by your (more content not included)... Normal [facility] ED Patient Summaryon 024 ED Patient Summary (Inserted Image. Judith ble to display) [address] [address] Patient Discharge Instructions Person Information Name: HEENA WANG Age: 18 Years Arrival Date: 10/28/2023 11:07:53 Discharge Diagnosis: 1:Strain of right knee Primary Care Physician: MORRO HAUSER CNP Provider Information Primary Provider: Rupert Soriano DO Advanced Running Specialist:None The exam and treatment you received in the Emergency Department were for an urgent problem and are not intended as complete care. It is important that you follow up with a doctor, nurse practitioner, or physician?s assistant operator for ongoing care. If your symptoms become worse or you do not improve as expected and you are unable to reach your usual health care provider, you should return to the Emergency Department. We are available 24 hours a day. HEENA WANG has been given the following list of patient education materials, prescriptions and follow-up instructions: Follow-up Instructions: With: Address: When: Rayne Rivera [address] [place] [phone] Business (1) In 3 days 10/31/2023 With: Address: When: [address] [phone] [facility] (1) In 3 days In the event that this physician does not participate in your insurance network, please consult with your insurance company to find a nearby participating provider. Patient Education Materials: Knee Sprain, Adult; How to Use a Knee Immobilizer; Radial Nerve Palsy; Crutch Use, Adult, Tuvj-zl-Bglj A MESSAGE TO ALL PATIENTS REGARDING OPIOIDS PRESCRIPTION OPIOIDS: WHAT YOU NEED TO KNOW Prescription opioids can be used to help relieve tvbmenqp-gn-gckywk pain and are often prescribed following a [...] If y (more content not included)... Normal [facility] XR Knee Complete 4+ Views Mónica [...] mGy = na DAP = na Normal [facility] Quick Strepon 03-02-2023 S. pyogenes Org specific cx Ql (Throat) Negative [facility] Other Quick Strep [facility] Other US PELVISon 07-03-2022 US PELVIS EXAMINATION: [...] JOSÉ MIGUEL LAM Date: 2022-07-03 16:20 Normal [facility] Basophils Auto (Bld) [#/Vol] Ordered By: Melo Diana on 06-09-2022 Basophils (Bld) [#/Vol] 0.0 10*3/uL 0.0-0.2 [place] Basophils/100 WBC Auto (Bld) Ordered By: Melo Diana on 06-09-2022 Basophils/100 WBC (Bld) 0.1 % . [facility] Creatinine and Glomerular fi ltration rate.predicted panel (S/P/Bld)Ordered By: Melo Diana on 06-09-2022 Creatinine [Mass/Vol] 0.61 mg/dL 0.44-1.03 [facility] Eosinophils Auto (Bld) [#/Vo l]Ordered By: Melo Diana on 06-09-2022 Eosinophils (Bld) [#/Vol] 0.0 10*3/uL 0.0-0.45 [facility] Eosinophils/100 WBC Auto (Bl d)Ordered By: Melo Diana on 06-09-2022 Eosinophils/100 WBC (Bld) 0.0 % . [facility] Erythrocyte distribution wid th Auto (RBC) [Ratio]Ordered By: Melo Diana on 06-09-2022 Erythrocyte distribution width (RBC) [Ratio] 13.3 % 11.9-15.3 [facility] Estimated glomerular filtrat ion rate (GFR) non- AmericanOrdered By: Melo Diana on 06-09-2022 GFR/1.73 sq M.predicted among non-blacks MDRD (S/P/Bld) [Vol rate/Area] > 60 mL/Min [facility] Hematocrit Auto (Bld) [Volum e fraction]Ordered By: Melo Diana on 06-09-2022 Hematocrit (Bld) [Volume fraction] 36.1 % 34.0-46.4 [facility] Hemoglobin [Mass/volume] in BloodOrdered By: Melo Diana on 06-09-2022 Hemoglobin (Bld) [Mass/Vol] 12.1 g/dL 11.8-15.4 [facility] Leukocytes [#/volume] correc gloria for nucleated erythrocytes in Blood by Automated counOrdered By: Melo Diana on 06-09-2022 WBC corrected for nucl RBC Auto (Bld) [#/Vol] 9.8 10*3/uL 3.8-11.6 [facility] Lymphocytes Auto (Bld) [#/Vo l]Ordered By: Melo Diana on 06-09-2022 Lymphocytes (Bld) [#/Vol] 1.6 10*3/uL 1.00-4.8 [facility] Lymphocytes/100 WBC Auto (Bl d)Ordered By: eMlo Diana on 06-09-2022 Lymphocytes/100 WBC (Bld) 16.1 % . [facility] MCH Auto (RBC) [Entitic mass ]Ordered By: Melo Diana on 06-09-2022 MCH (RBC) [Entitic mass] 29.4 pg 24.7-34.3 [facility] MCHC Auto (RBC) [Mass/Vol]Or dered By: Melo Diana on 06-09-2022 MCHC (RBC) [Mass/Vol] 33.5 g/dL 32.0-35.0 [facility] MCV Auto (RBC) [Entitic vol] Ordered By: Melo Diana on 06-09-2022 MCV (RBC) [Entitic vol] 87.8 fL 80-100 [facility] Monocytes Auto (Bld) [#/Vol] Ordered By: Melo Diana on 06-09-2022 Monocytes (Bld) [#/Vol] 1.0 10*3/uL 0.0-0.8 [facility] Monocytes/100 WBC Auto (Bld) Ordered By: Melo Diana on 06-09-2022 Monocytes/100 WBC (Bld) 10.4 % . [facility] Neutrophils Auto (Bld) [#/Vo l]Ordered By: Melo Diana on 06-09-2022 Neutrophils (Bld) [#/Vol] 7.2 10*3/uL 1.8-7.7 [facility] Neutrophils/100 WBC Auto (Bl d)Ordered By: Melo Diana on 06-09-2022 Neutrophils/100 WBC (Bld) 73.4 % . [facility] No Panel InformationOrdered By: Melo Diana on 06-09-2022 Estimated GFR () > 60 mL/Min [facility] Comment on above: GFR estimated refere nce range: According to KDOQI guidelines, <60 ml/min/1.73m2 is sufficient to diagnose a patient with chronic kidney disease. Pharmacy Creatinine Clearance (Chem 181.95 [facility] Nucleated erythrocytes [Pres ence] in Blood by Automated countOrdered By: Melo Diana on 06-09-2022 Nucleated RBC Auto Ql (Bld) 0.1 /100{WBC} 0-0.5 [facility] Platelet mean volume Auto (B ld) [Entitic vol]Ordered By: Melo Diana on 06-09-2022 Platelet mean volume (Bld) [Entitic vol] 9.5 fL 6.3-10.7 [facility] Platelets Auto (Bld) [#/Vol] Ordered By: Melo Diana on 06-09-2022 Platelets (Bld) [#/Vol] 273 10*3/uL 150-450 [facility] RBC Auto (Bld) [#/Vol]Ordere d By: Melo Diana on 06-09-2022 RBC (Bld) [#/Vol] 4.11 10*6/uL 3.60-5.00 [facility] Serum or plasma anion gap de terminationOrdered By: Melo Diana on 06-09-2022 Anion gap [Moles/Vol] 11.8 mmol/L 6.0-15.0 [facility] Serum or plasma calcium diomedes urement (mass/volume)Ordered By: Melo Diana on 06-09-2022 Calcium [Mass/Vol] 8.3 mg/dL 8.2-10.2 [facility] Serum or plasma chloride omar surement (moles/volume)Ordered By: Melo Diana on 06-09-2022 Chloride [Moles/Vol] 98 mmol/L 95-114 [facility] Serum or plasma glucose diomedes urement (mass/volume)Ordered By: Melo Diana on 06-09-2022 Glucose [Mass/Vol] 97 mg/dL 70-100 [facility] Comment on above: ADA recommended refe rence rangeRandom Glucose Reference Range is dependent on time and content of last meal. Glucose of more than 200 mg/dL in a nonstressed, ambulatory subject supports the diagnosis of Diabetes Mellitus. Serum or plasma potassium me asurement (moles/volume)Ordered By: Melo Diana on 06-09-2022 Potassium [Moles/Vol] 4.0 mmol/L 3.5-5.1 [facility] Serum or plasma sodium measu rement (moles/volume)Ordered By: Melo Diana on 06-09-2022 Sodium [Moles/Vol] 132 mmol/L 136-146 [facility] Serum or plasma total carbon dioxide measurement (moles/volume)Ordered By: Melo Diana on 06-09-2022 CO2 [Moles/Vol] 26.2 mmol/L 22.0-30.0 [facility] Serum or plasma urea nitroge n measurement (mass/volume)Ordered By: Melo Diana on 06-09-2022 Urea nitrogen [Mass/Vol] 11 mg/dL 9- [place] WBC Auto (Bld) [#/Vol]Ordere d By: Melo Diana on 06-09-2022 WBC (Bld) [#/Vol] 9.8 10*3/uL 3.8-11.6 [facility] Activated partial thrombopla stin time (aPTT) in platelet poor plasma by coagulation aOrdered By: Lorelei Avery on 06-05-2022 aPTT Coag (PPP) [Time] 32.1 s 25.1-36.5 [facility] Aerobic cultureOrdered By: Zehra Avery on 06-05-2022 Bacteria identified Aer cx Nom (Unsp spec) No Growth 2 Days [facility] Albumin [Mass/volume] in Cer ebral spinal fluidOrdered By: Lorelei Avery on 06-05-2022 Albumin (CSF) [Mass/Vol] 35 mg/dL 7 [facility] Albumin [Mass/volume] in Ser um or PlasmaOrdered By: Lorelei Avery on 06-05-2022 Albumin [Mass/Vol] 4.3 g/dL 3.9-5.0 [facility] Anaerobic cultureOrdered By: Lorelei Avery on 06-05-2022 Bacteria identified Anaer cx Nom (Unsp spec) No Anaerobes Isolated 3 Days [facility] CSF IgG/albumin ratioOrdered By: Lorelei Avery on 06-05-2022 IgG/Albumin (CSF) [Mass ratio] 0.24 0.00-0.25 [facility] Cerebrospinal fluid IgG inde xOrdered By: Lorelei Avery on 06-05-2022 IgG clearance/Albumin clearance (S+CSF) [Ratio] 0.8 0.0-0.7 [facility] Cerebrospinal fluid eosinoph il percentageOrdered By: Lorelei Avery on 06-05-2022 Eosinophils/100 WBC (CSF) 0 % 0-0 [facility] Cerebrospinal fluid lymphocy te percentageOrdered By: Lorelei Avery on 06-05-2022 Lymphocytes/Leukocytes Manual cnt (CSF) [Pure # fraction] 87 % 40-80 [facility] Cerebrospinal fluid monocyte percentageOrdered By: Lorelei Avery on 06-05-2022 Monocytes/100 WBC (CSF) 9 % 15-45 [facility] Cerebrospinal fluid neutroph il percentageOrdered By: Lorelei Avery on 06-05-2022 Neutrophils/100 WBC (CSF) 4 % 0-6 [facility] Cerebrospinal fluid post-suraj trifugation appearance determinationOrdered By: Lorelei Avery on 06-05-2022 Appearance (Spun CSF) Colorless Colorless [facility] Cerebrospinal fluid sample t ube volume measurementOrdered By: Lorelei Avery on 06-05-2022 Specimen volume (CSF) 14.0 mL [facility] Color CSFOrdered By: Lorelei Avery on 06-05-2022 Color (CSF) Colorless Colorless [facility] Gram stain for investigation of transfusion reactionOrdered By: Lorelei Avery on 06-05-2022 Microscopic observation Gram stain Nom (Unsp spec) [facility] HIV 1 and HIV-2 antibody ass ay with HIV-1 p24 antigen detectionOrdered By: Lorelei Avery on 06-05-2022 HIV 1+2 Ab+HIV1 p24 Ag IA Ql Non-Reactive Non Reactive [facility] Comment on above: HIV NegativeHIV-1/HI V-2 antibodies and HIV-1 p24 antigen were NOTdetected. There is no laboratory evidence of HIV infection.Performed at: - [address] [id number] Director: Steve Fatima PhD, Phone: [phone] IgG [Mass/volume] in Cerebra l spinal fluidOrdered By: Lorelei Avery on 06-05-2022 IgG (CSF) [Mass/Vol] 8.3 mg/dL 0.0-6.7 [facility] IgG [Mass/volume] in Serum o r PlasmaOrdered By: Lorelei Avery on 06-05-2022 IgG [Mass/Vol] 1274 mg/dL 719-1475 [facility] IgG synthesis rate [Mass/mily e] in Serum and CSF by calculationOrdered By: Lorelei Avery on 06-05-2022 IgG synthesis rate Calc (S+CSF) [Mass/Time] 13.9 mg/day -9.9 TO +3.3 [facility] Comment on above: Performed at: [address] [id number] Director: Steve Fatima PhD, Phone: [phone] Laboratory - CoagulationOrde red By: Lorelei Avery on 06-05-2022 PT Coag (PPP) [Time] 13.4 s 9.0-12.9 [facility] Manual cerebrospinal fluid e rythrocytes count (number/volume)Ordered By: Lorelei Avery on 06-05-2022 RBC Manual cnt (CSF) [#/Vol] 0 /uL [facility] Comment on above: The reference interv al and other method performance specifications have not been established for this body fluid. The test result must be integrated into the clinical context for interpretation. No Panel InformationOrdered By: Lorelei Avery on 06-05-2022 CSF Appearance Clear Clear [facility] CSF Glucose 46 mg/dL 40-70 [facility] CSF Total Protein 59 mg/dL 15-45 [facility] CSF Tube Number Tube number: 1 [facility] No Panel InformationOrdered By: Kt Pearson on 06-05-2022 Anti-Nuclear Antibody Comment 2 See comment . [facility] Comment on above: For more information about Hep-2 cell patterns useANApatterns.org, the official website for the InternationalConsensus on Antinuclear Antibody (LIZZY) Patterns (ICAP). ----A positive LIZZY result may occur in healthy individuals (lowtiter) or be associated with a variety of diseases. Seeinterpretation chart which is not all inclusive:Pattern Antigen Detected Suggested Disease Association Homogeneous DNA(ds,ss), SLE - High titers Nucleosomes, Histones Drug-induced SLE Speckled Sm, [employer], SCL-70, SLE,MCTD,PSS (diffuse form), SS-A/SS-B Sjogrens Nucleolar SCL-70, PM-1/SCL High titers Scleroderma, PM/DM Centromere Centromere PSS (limited form) w/Crest syndrome variable Nuclear Dot Sp100,i49-hieyqj Primary Biliary Cirrhosis Nuclear GP210, Primary Biliary CirrhosisMembrane miranda A,B,C Performed at: [place] [facility] [address] [id number] Director: Steve Fatima PhD, Phone: [phone] [employer] Antibody 0.2 AI 0.0-0.9 [facility] Nucleated cells [#/volume] i n Cerebral spinal fluid by Manual countOrdered By: Lorelei Avery on 06-05-2022 Nucleated cells Manual cnt (CSF) [#/Vol] 0.16 10*3/uL 0-5 [facility] Comment on above: Critical valueresult calledat 1732 on 06/05/22 Platelet poor plasma interna tional normalized ratio (INR) by coagulation assay (relatOrdered By: Lorelei Avery on 06-05-2022 INR Coag (PPP) [Relative time] 1.2 {INR} [facility] Comment on above: INR Therapeutic Rang e [...] Ab IA Qn (S) 0.2 AI 0.0-0.9 [facility] Comment on above: Performed at: [place] [facility] [address] [id number] Director: Steve Fatima PhD, Phone: [phone] Serum Sjogrens syndrome-A ex tractable nuclear antibody assay (units/volume)Ordered By: Kt Pearson on 06-05-2022 Sjogrens syndrome-A extractable nuclear Ab Qn (S) 0.2 AI 0.0-0.9 [facility] Serum Sjogrens syndrome-B ex tractable nuclear antibody assay (units/volume)Ordered By: Kt Pearson on 06-05-2022 Sjogrens syndrome-B extractable nuclear Ab Qn (S) <0.2 AI 0.0-0.9 [facility] Serum Zamora extractable nucl ear antigen (HERNESTO) antibody assay (units/volume)Ordered By: Kt Pearson on 06-05-2022 Zmaora extractable nuclear Ab Qn (S) <0.2 AI 0.0-0.9 [facility] Serum angiotensin converting enzyme (SUSIE) measurementOrdered By: Kt Pearson on 06-05-2022 Angiotensin converting enzyme [Catalytic activity/Vol] 26 U/L [facility] Comment on above: Performed at: [facility] [place] [id number] Director: Steve Fatima PhD, Phone: [phone] Serum homogeneous pattern an tinuclear antibody (LIZZY) titerOrdered By: Kt Pearson on 06-05-2022 Homogenous nuclear Ab pattern (S) [Titer] 1:160 . [facility] Comment on above: ICAP nomenclature: A C-1 Serum nuclear antibody titer Ordered By: Kt Pearson on 06-05-2022 Nuclear Ab (S) [Titer] Positive . [facility] Comment on above: Negative <1:80 Borde rline 1:80 Positive >1:80 Chlamydia trachomatis DNA [P resence] in Specimen by TERESA with probe detectionOrdered By: Isaías Pan on 06-04-2022 C. trachomatis DNA TERESA+probe Ql (Unsp spec) Negative Negative [facility] Fungal cultureOrdered By: Mónica Pan on 06-04-2022 Fungus identified Cx Nom (Unsp spec) [facility] Herpes simplex virus (HSV) c ulture with typingOrdered By: Isaías Pan on 06-04-2022 HSV identified Org specific cx Nom (Unsp spec) See comment . [facility] Comment on above: Positive for Herpes simplex virus type-2. Typing wasconfirmed by monoclonal antibody microscopicimmunofluorescence.Performed at: [facility] [employer] [facility] [id number] [place], [place] [id number] Director: Steve Fatima PhD, Phone: [phone] Neisseria gonorrhoeae DNA [P resence] in Specimen by TERESA with probe detectionOrdered By: Isaías Pan on 06-04-2022 N. gonorrhoeae DNA ETRESA+probe Ql (Unsp spec) Negative Negative [facility] Trichomonas vaginalis DNA [P resence] in Specimen by TERESA with probe detectionOrdered By: Isaías Pan on 06-04-2022 T. vaginalis DNA TERESA+probe Ql (Unsp spec) Negative Negative [facility] Comment on above: Performed at: =[address] [id number] Director: Evelyn Arnold MD, Phone: [phone] Trichomonas vaginalis detect ion by wet preparationOrdered By: Isaías Pan on 06-04-2022 T. vaginalis Wet prep Ql (Unsp spec) [facility] Albumin [Mass/volume] in Ser um or PlasmaOrdered By: Ravi Zhang on 06-02-2022 Albumin [Mass/Vol] 3.5 g/dL 3.2-5.5 [facility] C reactive protein [Mass/vol ume] in Serum or PlasmaOrdered By: Ravi Zhang on 06-02-2022 CRP [Mass/Vol] 0.6 mg/dL 0.0-1.0 [facility] Direct bilirubin measurement Ordered By: Ravi Zhang on 06-02-2022 Bilirubin.direct [Mass/Vol] 0.2 mg/dL 0.0-0.4 [place] Erythrocyte sedimentation ra te by Photometric methodOrdered By: Ravi Zhang on 06-02-2022 ESR Photometric method (Bld) [Velocity] 26 mm/hr 0-19 [facility] Folate [Mass/volume] in Seru m or PlasmaOrdered By: Ravi Zhang on 06-02-2022 Folate [Mass/Vol] 16.6 ng/mL >5.9 [facility] Comment on above: Folate reference ran ge: >5.9 ng/mlThe WHO technical consultation on folate and vitamin [id number] has determined that folate concentrations lessthan 4 ng/ml are considered deficient. Globulin Calc (S) [Mass/Vol] Ordered By: Ravi Zhang on 06-02-2022 Globulin (S) [Mass/Vol] 3.7 g/dL [facility] Glucose mean value [Mass/vol ume] in Blood Estimated from glycated hemoglobinOrdered By: Ravi Zhang on 06-02-2022 Average glucose Estimated from glycated hemoglobin (Bld) [Mass/Vol] 103 mg/dL [facility] Hemoglobin A1c percentageOrd ered By: Ravi Zhang on 06-02-2022 HbA1c (Bld) [Mass fraction] 5.2 % 4.3-5.6 [facility] Comment on above: Increased risk for d iabetes: 5.7 - 6.4diabetes: >6.4glycemic control for adults with diabetes: <7.0 Laboratory - Chemistry and C hemistry - challengeOrdered By: Ravi Zhang on 06-02-2022 Cobalamin (Vitamin B12) [Mass/Vol] 368 pg/mL 180-914 [place] Magnesium [Mass/Vol] 2.1 mg/dL 1.6-2.6 [facility] Phosphate [Mass/volume] in S [place] or PlasmaOrdered By: Ravi Zhang on 06-02-2022 Phosphate [Mass/Vol] 3.8 mg/dL 2.5-4.6 [facility] Protein [Mass/volume] in Ser um or PlasmaOrdered By: Ravi Zhang on 06-02-2022 Protein [Mass/Vol] 7.2 g/dL 6.1-7.9 [facility] Serum or plasma alanine hooper otransferase measurement without P-5'-P (enzymatic activiOrdered By: Ravi Zhang on 06-02-2022 ALT No additional P-5'-P [Catalytic activity/Vol] 26 U/L 10-60 [facility] Serum or plasma albumin/glob ulin mass ratioOrdered By: Ravi Zhang on 06-02-2022 Albumin/Globulin [Mass ratio] 0.9 {ratio} [facility] Serum or plasma alkaline keven sphatase measurement (enzymatic activity/volume)Ordered By: Ravi Zhang on 06-02-2022 ALP [Catalytic activity/Vol] 60 U/L 32-92 [facility] Serum or plasma aspartate am inotransferase measurement (enzymatic activity/volume)Ordered By: Ravi Zhang on 06-02-2022 AST [Catalytic activity/Vol] 31 U/L 10- [facility] Serum or plasma non-glucuron idated bilirubin measurement (mass/volume)Ordered By: Ravi Zhang on 06-02-2022 Bilirubin.indirect [Mass/Vol] 0.7 mg/dL [facility] Serum or plasma thyroxine (T 4) measurement (mass/volume)Ordered By: Ravi Zhang on 06-02-2022 T4 [Mass/Vol] 9.70 ug/dL 5.39-11.82 [facility] Serum or plasma total biliru bin measurement (mass/volume)Ordered By: Ravi Zhang on 06-02-2022 Bilirubin [Mass/Vol] 0.9 mg/dL 0.3-1.2 [facility] TSH DL <= 0.005 mIU/L QnOrde red By: Ravi Zhang on 06-02-2022 TSH Qn 0.85 m[IU]/L 0.45-5.33 [place] Thyroxine (T4) free [Mass/vo lume] in Serum or PlasmaOrdered By: Ravi Zhang on 06-02-2022 Free T4 [Mass/Vol] 0.96 ng/dL 0.61-1.12 [facility] MICRO OTHER TESTSOrdered By: Sree Reeves on 11-24-2021 Rapid COV Int NEG [facility] [place] (11/24/21 10:53 AM) Normal FT Man UA SS Rapid COV Int POS Ctl [place] (11/24/21 10:53 AM) Normal FT Man UA SS SARS-CoV-2 (COVID-19) RNA TERESA+probe Ql (Unsp spec) Not Detected (11/24/21 10:53 AM) Normal Not Detected [facility] Man UA SS Vital Signs Date Time Vital Sign Value Performing Clinician Facility 11-12-2024 15:41-0400 Body mass index (BMI) [Ratio] 29.13 kg/m2 Susan RAZO Work Phone: [facility] 11-12-2024 15:41-0400 Body weight 92.08 kg Susan RAZO Work Phone: [facility] 11-12-2024 15:41-0400 Diastolic blood pressure 84 mm[Hg] Susan Montano PA Work Phone: [facility] 11-12-2024 15:41-0400 Systolic blood pressure 122 mm[Hg] Susan Montano PA Work Phone: [facility] 10-29-2024 13:45-0400 Body mass index (BMI) [Ratio] 27.81 kg/m2 Benji Madhu DO Work Phone: [facility] 10-29-2024 13:45-0400 Body weight 87.91 kg Benji Madhu DO Work Phone: [facility] 10-29-2024 13:45-0400 Diastolic blood pressure 70 mm[Hg] Benji Madhu DO Work Phone: [facility] 10-29-2024 13:45-0400 Systolic blood pressure 120 mm[Hg] Benji Madhu DO Work Phone: [facility] 10-16-2024 15:55-0400 Body mass index (BMI) [Ratio] 27.81 kg/m2 Susan RAZO Work Phone: [facility] 10-16-2024 15:55-0400 Body weight 87.91 kg Susan RAZO Work Phone: [facility] 10-16-2024 15:55-0400 Diastolic blood pressure 76 mm[Hg] Susan RAZO Work Phone: [facility] 10-16-2024 15:55-0400 Systolic blood pressure 122 mm[Hg] Susan RAZO Work Phone: [facility] 09-30-2024 10:02-0400 Body mass index (BMI) [Ratio] 27.52 kg/m2 Benji Madhu DO Work Phone: [facility] 09-30-2024 10:02-0400 Body weight 87 kg Benji Madhu DO Work Phone: [facility] 09-30-2024 10:02-0400 Diastolic blood pressure 74 mm[Hg] Benji Madhu DO Work Phone: [facility] 09-30-2024 10:02-0400 Systolic blood pressure 120 mm[Hg] Benji Madhu DO Work Phone: [facility] 09-10-2024 11:13-0400 Body mass index (BMI) [Ratio] 26.98 kg/m2 Jessy Cruz ORGANIC CHEMISTRY TEACHER Work Phone: [facility] 09-10-2024 11:13-0400 Body weight 85.28 kg Jessy Cruz ORGANIC CHEMISTRY TEACHER Work Phone: [facility] 09-10-2024 11:13-0400 Diastolic blood pressure 70 mm[Hg] Jessy Anthony ORGANIC CHEMISTRY TEACHER Work Phone: [facility] 09-10-2024 11:13-0400 Systolic blood pressure 118 mm[Hg] Jessy Anthony ORGANIC CHEMISTRY TEACHER Work Phone: [facility] 08-13-2024 11:35-0400 Body mass index (BMI) [Ratio] 25.8 kg/m2 Benji Madhu DO Work Phone: [facility] 08-13-2024 11:35-0400 Body weight 81.56 kg Benji Madhu DO Work Phone: [facility] 08-13-2024 11:35-0400 Diastolic blood pressure 64 mm[Hg] Benji Madhu DO Work Phone: [facility] 08-13-2024 11:35-0400 Systolic blood pressure 112 mm[Hg] Benji Madhu DO Work Phone: [facility] 07-16-2024 10:52-0500 Body mass index (BMI) [Ratio] 25.11 kg/m2 Susan Montano PA Work Phone: [facility] 07-16-2024 10:52-0500 Body weight 79.38 kg Susan Montano PA Work Phone: [facility] 07-16-2024 10:52-0500 Diastolic blood pressure 66 mm[Hg] Susan Montano PA Work Phone: [facility] 07-16-2024 10:52-0500 Systolic blood pressure 114 mm[Hg] Susan Montano PA Work Phone: [facility] 06-17-2024 11:34-0500 Body mass index (BMI) [Ratio] 24.39 kg/m2 Benji Madhu DO Work Phone: [facility] 06-17-2024 11:34-0500 Body weight 77.11 kg Benji Madhu DO Work Phone: [facility] 06-17-2024 11:34-0500 Diastolic blood pressure 62 mm[Hg] Benji Madhu DO Work Phone: [facility] 06-17-2024 11:34-0500 Systolic blood pressure 116 mm[Hg] Benji Madhu DO Work Phone: [facility] 05-20-2024 10:23-0500 Body mass index (BMI) [Ratio] 23.82 kg/m2 Nom Nurse [facility] 05-20-2024 10:23-0500 Body weight 75.3 kg [facility] 04-08-2024 18:25-0500 Body mass index (BMI) [Ratio] 26.54 kg/m2 Samra Jennings DO Work Phone: [facility] 04-08-2024 18:25-0500 Body temperature 98.2 [degF] Samra Jennings DO Work Phone: [facility] 04-08-2024 18:25-0500 Body weight 83.92 kg Samra Jennings DO Work Phone: [facility] 04-08-2024 18:25-0500 Diastolic blood pressure 78 mm[Hg] Samra Jennings DO Work Phone: [facility] 04-08-2024 18:25-0500 Heart rate 103 /min Samra Jennings DO Work Phone: [facility] 04-08-2024 18:25-0500 SaO2% (BldA) [Mass fraction] 98 % Samra Jennings DO Work Phone: [facility] 04-08-2024 18:25-0500 Systolic blood pressure 118 mm[Hg] Samra Jennings DO Work Phone: [facility] 02-11-2024 10:00-0400 Body height 177.8 cm [facility] [employer] Work Phone: [facility] 02-11-2024 10:00-0400 Body mass index (BMI) [Ratio] 26.4 kg/m2 [facility] [employer] Work Phone: [facility] 02-11-2024 10:00-0400 Body weight 83.46 kg [facility] [employer] Work Phone: [facility] 10-28-2023 11:24-0400 Body temperature 98.42 [degF] Rupert Soriano [facility] 10-28-2023 11:24-0400 Diastolic blood pressure 73 mm[Hg] Rupert Wallacee [facility] 10-28-2023 11:24-0400 Heart rate 95 /min Rupert Christie [facility] 10-28-2023 11:24-0400 Respiratory rate 16 /min Rupert Wallacee [facility] 10-28-2023 11:24-0400 SaO2% (BldA) [Mass fraction] 100 % Rupert Wallacee [facility] 10-28-2023 11:24-0400 Systolic blood pressure 131 mm[Hg] Rupert Christie [facility] 03-02-2023 11:25-0400 Body height 176.53 cm Racheal Greenberg Other [employer] Other 03-02-2023 11:25-0400 Body mass index (BMI) [Ratio] 28.31 kg/m2 Racheal Greenberg Other [employer] Other 03-02-2023 11:25-0400 Body temperature 98.2 [degF] Racheal Greenberg Other [employer] Other 03-02-2023 11:25-0400 Body weight 88.23 kg Racheal Greenberg Other [employer] Other 03-02-2023 11:25-0400 Respiratory rate 18 /min Racheal Greenberg Other [employer] Other 03-02-2023 11:25-0400 SaO2% (BldA) [Mass fraction] 99 % Racheal Greenberg Other [employer] Other 01-07-2023 11:18-0400 Body height 182.88 cm CLERICAL GRADER Morro Easterwood Work Phone: [place] 01-07-2023 11:18-0400 Body temperature 98.7 [degF] CLERICAL GRADER Morro Easterwood Work Phone: [place] 01-07-2023 11:18-0400 Body weight 87.85 kg CLERICAL GRADER Morro Easterwood Work Phone: [place] 01-07-2023 11:18-0400 Diastolic blood pressure 93 mm[Hg] CLERICAL GRADER Morro Easterwood Work Phone: [place] 01-07-2023 11:18-0400 Heart rate 102 /min CLERICAL GRADER Morro Beyererwood Work Phone: [place] 01-07-2023 11:18-0400 Respiratory rate 20 /min CLERICAL GRADER Morro Beyererherb Work Phone: [place] 01-07-2023 11:18-0400 SaO2% (BldA) [Mass fraction] 99 % CLERICAL GRADER Morro Beyererwood Work Phone: [place] 01-07-2023 11:18-0400 Systolic blood pressure 146 mm[Hg] CLERICAL GRADER Morro Beyererherb Work Phone: [place] 06-15-2022 08:13-0500 Blood Pressure Location Iman Lue [facility] 06-15-2022 08:13-0500 Diastolic blood pressure 88 mm[Hg] Iman Lue [facility] 06-15-2022 08:13-0500 Heart rate 93 /min Iman Lue [facility] 06-15-2022 08:13-0500 Systolic blood pressure 125 mm[Hg] Iman Lue [facility] 06-15-2022 08:13-0500 weight 1.73 Iman Lue [facility] Comment on above: Result Comment: ^~:!ZScore Source -[facility] 06-15-2022 08:13-0500 Weight Percentile 95.83 % Iman Lue [facility] Comment on above: Result Comment: ^~:!Percentile Source -[facility] 06-14-2022 14:00-0500 Body height 176.53 cm Morro Hauser Other [employer] Other 06-14-2022 14:00-0500 Body mass index (BMI) [Ratio] 26.49 kg/m2 Morro Hauser Other [employer] Other 06-14-2022 14:00-0500 Body temperature 98.4 [degF] Morrocindy Hauser Other [employer] Other 06-14-2022 14:00-0500 Body weight 82.56 kg Morro Hauser Other [employer] Other 06-14-2022 14:00-0500 Diastolic blood pressure 82 mm[Hg] Morro Hauser Other [employer] Other 06-14-2022 14:00-0500 Respiratory rate 20 /min Morro Hauser Other [employer] Other 06-14-2022 14:00-0500 SaO2% (BldA) [Mass fraction] 98 % Morro Hauser Other [employer] Other 06-14-2022 14:00-0500 Systolic blood pressure 120 mm[Hg] Morro Talon Other [employer] Other 06-09-2022 17:36-0500 Body temperature 97.8 [degF] DO Ravi Lindbloom Work Phone: [place] 06-09-2022 17:36-0500 Diastolic blood pressure 65 mm[Hg] DO Ravi Lindbloom Work Phone: [place] 06-09-2022 17:36-0500 Heart rate 78 /min DO Ravi Lindbloom Work Phone: [place] 06-09-2022 17:36-0500 Respiratory rate 18 /min DO Ravi Lindbloom Work Phone: [place] 06-09-2022 17:36-0500 SaO2% (BldA) [Mass fraction] 96 % DO Ravi Lindbloom Work Phone: [place] 06-09-2022 17:36-0500 Systolic blood pressure 129 mm[Hg] DO Ravi Lindbloom Work Phone: [place] 06-09-2022 03:16-0500 Body weight 83.2 kg DO Ravi Lindbloom Work Phone: [place] 06-06-2022 13:58-0500 Body height 187.96 cm DO Ravi Lindbloom Work Phone: [place] 05-24-2022 15:07-0500 Blood Pressure Location Loreto DONALDSON [facility] 05-24-2022 15:07-0500 Body temperature 98.06 [degF] Loreto DONALDSON [facility] 05-24-2022 15:07-0500 bodymassindex 0.85 Loreto DONALDSON [facility] Comment on above: Result Comment: ^~:!ZScore [facility] 05-24-2022 15:07-0500 Diastolic blood pressure 70 mm[Hg] Loreto DONALDSON [facility] 05-24-2022 15:07-0500 Heart rate 72 /min Loreto DONALDSON [facility] 05-24-2022 15:07-0500 Height/Length Percentile 99.82 Loreto DONALDSON [facility] Comment on above: Result Comment: ^~:!Percentile Source -[facility] 05-24-2022 15:07-0500 Height/Length Z-Score 2.91 Loreto DONALDSON [facility] Comment on above: Result Comment: ^~:!ZScore [facility] 05-24-2022 15:07-0500 SaO2% (BldA) [Mass fraction] 99 % Loreto DONALDSON [facility] 05-24-2022 15:07-0500 Systolic blood pressure 110 mm[Hg] Loreto DONALDSON [facility] 05-24-2022 15:07-0500 weight 1.68 Loreto DONALDSON [facility] Comment on above: Result Comment: ^~:!ZScore [facility] 05-24-2022 15:07-0500 Weight Percentile 95.39 % Loreto DONALDSON [facility] Comment on above: Result Comment: ^~:!Percentile Source -[facility] 01-05-2022 09:00-0400 Body height 176.53 cm Morro [employer] Other [employer] Other 01-05-2022 09:00-0400 Body mass index (BMI) [Ratio] 26.34 kg/m2 [facility]ro [employer] Other [employer] Other 01-05-2022 09:00-0400 Body temperature 98 [degF] Morro [employer] Other [employer] Other 01-05-2022 09:00-0400 Body weight 82.1 kg [facility] Other [employer] Other 01-05-2022 09:00-0400 Diastolic blood pressure 78 mm[Hg] Morro Easterwood Other [employer] Other 01-05-2022 09:00-0400 Respiratory rate 20 /min Morro Easterwood Other [employer] Other 01-05-2022 09:00-0400 SaO2% (BldA) [Mass fraction] 99 % Morro Easterwood Other [employer] Other 01-05-2022 09:00-0400 Systolic blood pressure 120 mm[Hg] Morro Easterwood Other [employer] Other 11-22-2021 11:30-0400 Body height 176.53 cm Morro Easterwood Other [employer] Other 11-22-2021 11:30-0400 Body mass index (BMI) [Ratio] 25.62 kg/m2 Morro Easterwood Other [employer] Other 11-22-2021 11:30-0400 Body temperature 98.1 [degF] Morro Easterwood Other [employer] Other 11-22-2021 11:30-0400 Body weight 79.83 kg Morro Easterwood Other [employer] Other 11-22-2021 11:30-0400 Diastolic blood pressure 80 mm[Hg] Morro Easterwood Other [employer] Other 11-22-2021 11:30-0400 Respiratory rate 20 /min Morro EasterKidbox Other [employer] Other 11-22-2021 11:30-0400 SaO2% (BldA) [Mass fraction] 99 % Morro Easterwood Other [employer] Other 11-22-2021 11:30-0400 Systolic blood pressure 120 mm[Hg] Morro Easterwood Other [employer] Other 09-13-2021 15:00-0400 Body height 176.53 cm Morro Easterwood Other [employer] Other 09-13-2021 15:00-0400 Body mass index (BMI) [Ratio] 25.76 kg/m2 Morro Easterwood Other [employer] Other 09-13-2021 15:00-0400 Body temperature 98.4 [degF] Morro Easterwood Other [employer] Other 09-13-2021 15:00-0400 Body weight 80.29 kg Morro Easterwood Other [employer] Other 09-13-2021 15:00-0400 Diastolic blood pressure 70 mm[Hg] Morro Easterwood Other [employer] Other 09-13-2021 15:00-0400 Respiratory rate 20 /min Morro Easterwood Other [employer] Other 09-13-2021 15:00-0400 SaO2% (BldA) [Mass fraction] 98 % Morro Easterwood Other [employer] Other 09-13-2021 15:00-0400 Systolic blood pressure 108 mm[Hg] Morro Hauser Other [facility] [employer] Other Encounters Encounter Date Encounter Type Care Provider Facility Start: 11-12-2024 End: 11-12-2024 Office outpatient visit 15 minutes Susan RAZO Work Phone: [facility] Comment on above: Third trimester preg dave ([facility]) Start: 11-12-2024 End: 11-12-2024 Bamboo flowsheet Susan RAZO Work Phone: [facility] Start: 11-12-2024 End: 11-12-2024 Bamboo flowsheet Susan RAZO Work Phone: [facility] Start: 10-29-2024 End: 10-29-2024 Bamboo flowsheet Benji Madhu DO Work Phone: [facility] Start: 10-29-2024 End: 10-29-2024 Bamboo flowsheet Benji Madhu DO Work Phone: [facility] Start: 10-29-2024 End: 10-29-2024 Office outpatient visit 15 minutes Benji Madhu DO Work Phone: [facility] Comment on above: Third trimester preg dave; 34 weeks gestation of Start: 10-29-2024 End: 10-29-2024 ambulatory BENJI MADHU Not Available Start: 10-16-2024 End: 10-16-2024 Office outpatient visit 15 minutes Susan RAZO Work Phone: [facility] Comment on above: Third trimester preg dave; 32 weeks gestation of ; Low-lying placenta Start: 10-16-2024 End: 10-16-2024 ambulatory SUSAN MONTANO Not Available Start: 09-30-2024 End: 09-30-2024 Bamboo flowsheet Benji Madhu DO Work Phone: [facility] Start: 09-30-2024 End: 09-30-2024 Bamboo flowsheet Benji Madhu DO Work Phone: [facility] Start: 09-30-2024 End: 09-30-2024 ambulatory BENJI MADHU Not Available Start: 09-30-2024 End: 09-30-2024 Office outpatient visit 15 minutes Benji Madhu DO Work Phone: [facility] Comment on above: Third trimester preg daev; 30 weeks gestation of ; size inconsistent with dates; HSV (herpes simplex virus) infection Start: 09-24-2024 End: 09-24-2024 Clinisync Result Encounter Benji Madhu DO Work Phone: [facility] Unsolicited Start: 09-24-2024 End: 09-24-2024 Clinisync Result Encounter Benji Madhu DO Work Phone: [facility] External Department Unsolicited Start: 09-10-2024 End: 09-10-2024 Bamboo flowsheet Jessy Anthony ORGANIC CHEMISTRY TEACHER Work Phone: [facility] Start: 09-10-2024 End: 09-10-2024 Bamboo flowsheet Jessy Anthony ORGANIC CHEMISTRY TEACHER Work Phone: [facility] Start: 09-10-2024 End: 09-10-2024 ambulatory JESSY ANTHONY Not Available Start: 09-10-2024 End: 09-10-2024 Office outpatient visit 15 minutes Jessy Anthony ORGANIC CHEMISTRY TEACHER Work Phone: [facility] Comment on above: Second trimester pre gnancy; 27 weeks gestation of ; Low-lying placenta Start: 09-01-2024 End: 09-01-2024 ambulatory BENJI MADHU Not Available Start: 08-13-2024 End: 08-13-2024 Bamboo flowsheet Benji Madhu DO Work Phone: [facility] Start: 08-13-2024 End: 08-13-2024 Bamboo flowsheet Benji Madhu DO Work Phone: [facility] Start: 08-13-2024 End: 08-13-2024 Office outpatient visit 15 minutes Benji Madhu DO Work Phone: [facility] Comment on above: Second trimester pre gnancy; 23 weeks gestation of ; Diabetes mellitus screening Start: 08-13-2024 End: 08-13-2024 ambulatory BENJI MADHU Not Available Start: 07-23-2024 End: 07-23-2024 Clinisync Result Encounter Susan RAZO Work Phone: [facility] Unsolicited Start: 07-23-2024 End: 07-23-2024 Clinisync Result Encounter Susan RAZO Work Phone: [facility] Unsolicited Start: 07-16-2024 End: 07-16-2024 Bamboo flowsheet Susan [...] Start: 05-14-2024 End: 05-14-2024 ambulatory Percy Mendoza Facility:[place] Start: 04-15-2024 End: 04-15-2024 Office outpatient visit 15 minutes Benji Madhu DO Work Phone: [facility] Comment on above: Encounter for survei llance of other contraceptive Start: 04-08-2024 End: 04-08-2024 ambulatory SAMRA L CUTLER Not Available Start: 04-08-2024 End: 04-08-2024 Office outpatient visit 15 minutes Samra L Jennings DO Work Phone: [facility] Comment on above: Dysuria (Primary Dx) ; Acute cystitis without hematuria Start: 02-11-2024 End: 02-11-2024 Bamboo flowsheet Sampson Ayala PA Work Phone: [facility] Start: 02-11-2024 End: 02-11-2024 Bamboo flowsheet Sampson Ayala PA Work Phone: [facility] Start: 02-11-2024 End: 02-11-2024 Patient encounter procedure Sampson Ayala PA Work Phone: [facility] Comment on above: Status post arthrosc opy of right knee (Primary Dx) Start: 02-11-2024 End: 02-11-2024 ambulatory SAMPSON AYALA Not Available Start: 12-06-2023 End: 12-06-2023 ambulatory RAYNE Cj MIGUEL Not Available Start: 11-28-2023 End: 11-28-2023 Patient encounter procedure Sampson Ayala [facility] Start: 11-12-2023 End: 11-12-2023 ambulatory SAMPSON Taylor AYALA Not Available Start: 10-28-2023 End: 10-28-2023 Emergency department patient visit Rupert Soriano [facility] Start: 03-02-2023 End: 03-02-2023 ambulatory Racheal Greenberg Other [employer] Other Start: 03-02-2023 Office outpatient vi sit 15 minutes Racheal Greenberg [facility] Start: 01-07-2023 End: 01-07-2023 Emergency department patient visit CLERICAL GRADERJacquie Hauser Work Phone: [facility] Work Phone: Start: 11-15-2022 End: 11-25-2022 Pre-admission assessment Carlin Fuentes [facility] Start: 08-16-2022 End: 08-16-2022 ambulatory Morro Hauser Other [employer] Other Start: 08-16-2022 Telephone encounter Morro Hauser [facility] [place] Start: 07-03-2022 End: 07-04-[address] JOSÉ MIGUEL LAM Facility: Start: 06-15-2022 End: 06-15-2022 Patient encounter procedure Iman PurcellChato Yundorita [facility] Start: 06-14-2022 End: 06-14-2022 ambulatory Morro Easterwood Other [employer] Other Start: 06-14-2022 Office outpatient vi sit 40 minutes Morro Easterwood [facility] Start: 06-09-2022 End: 06-09-2022 ambulatory Morro Easterwood Other [facility] [employer] Other Start: 06-09-2022 Telephone encounter Morro [facility] Start: 06-02-2022 End: 06-09-2022 Evaluation and management of inpatient DO Ravi Zhang Work Phone: [facility] [place] [facility] Work Phone: Start: 05-24-2022 End: 05-24-2022 Patient encounter procedure Loreto DONALDSON [facility] Start: 01-05-2022 End: 01-05-2022 ambulatory Moror Easterwood Other [facility] [employer] Other Start: 01-05-2022 Office outpatient vi sit 15 minutes Morro Easterwood [facility] Start: 11-24-2021 End: 11-24-2021 ambulatory Morro Easterwood Other [employer] Other Start: 11-24-2021 Telephone encounter Morro Easterwood [facility] Start: 11-24-2021 End: 02-22-2022 Recurring MORRO EASTERWOOD [facility] Start: 11-22-2021 End: 11-22-2021 [facility] [employer] Other Start: 11-22-2021 [facility] Start: 09-13-2021 End: 09-13-[facility] [employer] Other Start: 09-13-2021 Office outpatient vi sit 15 minutes Morro [facility] Procedures Date Procedure Procedure Detail Performing Clinician Start: 09-24-2024 ALL CBC WITH AUTO DIFF Benji Madhu DO Work Phone: Start: 09-10-2024 Urnls dip stick/tabl et rgnt non-auto w/o micrscp Jessy Cruz NP Work Phone: Start: 08-13-2024 Urnls dip stick/tabl et rgnt non-auto w/o micrscp Benji Madhu DO Work Phone: Start: 07-23-2024 US OB ANATOMY Susan RAZO Work Phone: Start: 07-23-2024 US OB CERVICAL LENGTH A elaina RAZO Work Phone: Start: 07-16-2024 RECURRENT VAGINITIS (HTRX) Susan RAZO [...] X-ray of left ankle APR N Morro Olmoseast ryegate Work Phone: Start: 06-06-2022 MRI of cervical spin e with contrast DO Raviadam Braroom Work Phone: Start: 06-05-2022 Aerobic microbial culture DO Ravi Maykeloom Work Phone: Start: 06-05-2022 Anaerobic microbial culture DO Ravi Maykeloom Work Phone: Start: 06-05-2022 Investigation of transfusion reaction DO Raviadam Braroom Work Phone: Start: 06-05-2022 MRI of head DO Angy Zhang Work Phone: Start: 06-04-2022 Mycology culture DO Beryl Zhang Work Phone: Start: 06-04-2022 Trichomonas vaginali s detection DO Ravi Maykeloom Work Phone: Start: 06-04-2022 Computed tomography of abdomen and pelvis with contrast DO Ravi Maykeloom Work Phone: Start: 06-03-2022 MRI of thoracic spin e with contrast DO Ravi Maykeloom Work Phone: Plan of Treatment Date Care Activity Detail Author Start: 11-19-2024 End: 11-19-2024 Patient encounter procedure 11/19/2024 2:30 PM EDT Routine [facility] [address] [place] [address] Benji Leung DO [address] [place] [address] [facility] Start: 11-12-2024 End: 11-12-2024 Patient encounter procedure 11/12/2024 3:20 PM EDT Routine [facility] [address] [place] [address] Susan Montano PA [address] [place], [place] [address] [facility] Start: 11-12-2024 End: 11-12-2025 CULTURE, GROUP B STREP WITH SUSCEPTIBLITY CULTURE, GROUP B STREP WITH SUSCEPTIBLITY Lab Routine Third trimester ([facility]) Expected: 11/12/2024, Expires: 11/12/2025 [facility] Work Phone: Comment on above: Expected: 11/12/2024 , Expires: 11/12/2025 Start: 10-29-2024 End: 10-29-2024 Patient encounter procedure [facility] Comment on above: Arrived Start: 10-16-2024 End: 01-16-2025 US Pelvis transvaginal US OB transvaginal Imaging Routine Low-lying placenta Expected: 10/16/2024, Expires: 01/16/2025 [facility] Work Phone: Comment on above: Expected: 10/16/2024 , Expires: 01/16/2025 Start: 09-30-2024 End: 01-31-2025 US for US OB follow up transabdominal approach Imaging Routine size inconsistent with dates Expected: 09/30/2024, Expires: 01/31/2025 [facility] Work Phone: Comment on above: Expected: 09/30/2024 , Expires: 01/31/2025 Start: 09-30-2024 End: 09-30-2024 Patient encounter procedure 09/30/2024 9:50 AM EDT Routine [facility] [address] [place] [address] Benji Leung DO [address] [place] [address] [facility] Start: 09-10-2024 End: 09-10-2024 Patient encounter procedure 09/10/2024 10:30 AM EDT Routine [facility] [address] [place] [address] Susan Montano PA [address] [place] [address] [facility] Start: 09-01-2024 End: 09-01-2024 Professional / ancillary services management 09/01/2024 1:00 PM EDT Ancillary Procedure [facility] [address] [place] [address] [facility] Start: 08-13-2024 End: 08-13-2025 CBC panel - Blood by Automated count CBC Lab Routine Diabetes mellitus screening Expected: 08/13/2024 (Approximate), Expires: 08/13/2025 [facility] Work Phone: Comment on above: Expected: 08/13/2024 (Approximate), Expires: 08/13/2025 Start: 08-13-2024 End: 08-13-2025 Measurement of glucose 1 hour after glucose challenge for glucose tolerance test Glucose tolerance, 1 hour Lab Routine Diabetes mellitus screening Expected: 08/13/2024 (Approximate), Expires: 08/13/2025 [facility] Comment on above: Expected: 08/13/2024 (Approximate), Expires: 08/13/2025 Start: 08-13-2024 End: 08-13-2024 Patient encounter procedure [facility] Comment on above: Arrived Start: 07-16-2024 End: 07-16-2025 Alpha fetoprotein, maternal Alpha fetoprotein, maternal Lab Routine Second trimester 19 weeks gestation of Expected: 07/16/2024 (Approximate), Expires: 07/16/2025 [facility] Comment on above: Expected: 07/16/2024 (Approximate), Expires: 07/16/2025 Start: 07-16-2024 End: 07-16-2025 US for US OB 14+ weeks anatomy scan Imaging Routine Screening, , for anatomic survey Expected: 07/16/2024, Expires: 07/16/2025 [facility] Comment on above: Expected: 07/16/2024 , Expires: 07/16/2025 Start: 07-16-2024 End: 07-16-2024 Patient encounter procedure 07/16/2024 10:30 AM EST Routine [facility] [address] [place] [address] Susan Montano PA [address] [place] [address] [facility] Start: 06-17-2024 End: 06-17-2024 Patient encounter procedure [facility] Comment on above: Arrived Start: 05-20-2024 End: 05-20-2025 ABO/Rh ABO/Rh Lab Routine Missed menses , unspecified gestational age Expected: 05/20/2024 (Approximate), Expires: 05/20/2025 [facility] Comment on above: Expected: 05/20/2024 (Approximate), Expires: 05/20/2025 Start: 05-20-2024 End: 05-20-2025 Blood type and Indirect antibody screen panel - Blood Type and screen Lab Routine Missed menses , unspecified gestational age Expected: 05/20/2024 (Approximate), Expires: 05/20/2025 [facility] Work Phone: Comment on above: Expected: 05/20/2024 (Approximate), Expires: 05/20/2025 Start: 05-20-2024 End: 05-20-2025 Drugs of abuse panel - Urine by Screen method Rapid drug screen, urine Lab Routine , unspecified gestational age Encounter for supervision of normal first in first trimester Expected: 05/20/2024 (Approximate), Expires: 05/20/2025 [facility] Comment on above: Expected: 05/20/2024 (Approximate), Expires: 05/20/2025 Start: 04-15-2024 End: 04-15-2024 Patient encounter procedure 04/15/2024 10:20 AM EST Office Visit [facility] [address] [id number] Benji Leung DO [address] [place] [address] [facility] Start: 02-11-2024 End: 02-11-2024 Patient encounter procedure 02/11/2024 10:00 AM EDT Office Visit [facility] [address] [place] [id number] Sampson Ayala PA [address] [place] [address] Arrived [facility] Comment on above: Arrived Start: 06-09-2022 [place] Start: 06-06-2022 Referral to infectio us diseases physician [place] Start: 06-05-2022 Borrelia burgdorferi DNA assay [place] Start: 06-05-2022 End: 06-05-2022 [place] Start: 06-05-2022 [place] Start: 06-04-2022 Referral to billet inspector [place] Start: 06-04-2022 Referral to urologist [facility] Start: 06-02-2022 Hospital admission [facility] Start: 06-02-2022 Referral to neurologist [place] Bacteria identified in Urine by Culture Urine culture Microbiology Routine Missed menses Ordered: 05/20/2024 [facility] Comment on above: Ordered: 05/20/2024 CBC W Auto Different ial panel - Blood CBC and differential Lab Routine Missed menses , unspecified gestational age Ordered: 05/20/2024 [facility] Comment on above: Ordered: 05/20/2024 CHLAMYDIA TRACHOMATI S (GENITO/STI) CHLAMYDIA TRACHOMATIS (GENITO/STI) Lab Routine STD exposure Ordered: 07/16/2024 [facility] Comment on above: Ordered: 07/16/2024 Cytology Cervical or vaginal smear or scraping study Pap Smear Pathology and Cytology Routine Well woman exam with routine gynecological exam Ordered: 07/16/2024 [facility] Comment on above: Ordered: 07/16/2024 Hemoglobin A1c/Hemoglobin.total in Blood Hemoglobin A1c Lab Routine Missed menses , unspecified gestational age Ordered: 05/20/2024 [facility] Comment on above: Ordered: 05/20/2024 Hepatitis B virus surface Ag [Presence] in Serum or Plasma by Immunoassay Hepatitis B surface antigen Lab Routine Missed menses , unspecified gestational age Ordered: 05/20/2024 [facility] Comment on above: Ordered: 05/20/2024 Hepatitis C virus Ab [Presence] in Serum or Plasma by Immunoassay Hepatitis C antibody Lab Routine Missed menses , unspecified gestational age Ordered: 05/20/2024 [facility] Comment on above: Ordered: 05/20/2024 HIV-1/HIV-2 antigen/antibody combination immunoassay HIV-1 and HIV-2 antibodies Lab Routine Missed menses , unspecified gestational age Ordered: 05/20/2024 [facility] Comment on above: Ordered: 05/20/2024 IgG [Mass/volume] in Serum or Plasma [place] Neisseria gonorrhoea e DNA [Presence] in Unspecified specimen by TERESA with probe detection Neisseria gonorrhea DNA probe, direct Lab Routine STD exposure Ordered: 07/16/2024 [facility] Comment on above: Ordered: 07/16/2024 Patient Education [facility] Work Phone: Patient referral [facility] Work Phone: Protein fractions.oligoclonal bands.intrathecal [Presence] in Serum and CSF [place] Reagin Ab [Presence] in Serum by RPR RPR Lab Routine Missed menses , unspecified gestational age Ordered: 05/20/2024 [facility] Comment on above: Ordered: 05/20/2024 Rubella antibody, IgG Rubella an tibody, IgG Lab Routine Missed menses , unspecified gestational age Ordered: 05/20/2024 [facility] Comment on above: Ordered: 05/20/2024 SURESWAB(R) ADVANCED VAGINITIS PLUS, TMA SURESWAB(R) ADVANCED VAGINITIS PLUS, TMA Pathology and Cytology Routine Vaginal discharge Ordered: 07/16/2024 [facility] Work Phone: Comment on above: Ordered: 07/16/2024 URINARY TRACT INFECT ION (HTRX) URINARY TRACT INFECTION (HTRX) Lab Routine Dysuria Ordered: 04/08/2024 [facility] Work Phone: Comment on above: Ordered: 04/08/2024 Payers Date Payer Category Payer Self-pay [id number] 2023 Medicaid [id number] 2022 Medicaid [id number] 2003 Unknown [id number] 2.16.84 0.1.042949.3.579.2.593 2003 Unknown [id number] 2.16.8 40.1.530091.3.579.2.727 2003 Unknown [id number] 2.16.8 40.1.511114.3.579.2.1259 2003 Unknown [id number] 2.16.84 0.1.554908.3.579.2.1259 2003 Unknown [id number] 2.16.84 0.1.301210.3.579.2.1259 2003 Unknown [id number] 2.16.84 0.1.979213.3.579.2.1259 2003 Unknown [id number] 2.16.84 0.1.522358.3.579.2.1259 2003 Unknown [id number] 2.16.84 0.1.335578.3.579.2.1259 2003 Unknown [id number] 2.16.84 0.1.784873.3.579.2.1259 2003 Unknown [id number] 2.16.84 0.1.921331.3.579.2.1259 2003 Unknown [id number] 2.16.84 0.1.915531.3.579.2.1259 2003 Unknown [id number] 2.16.84 0.1.754728.3.579.2.1259 2003 Unknown [id number] 2.16.84 0.1.873569.3.579.2.1259 2003 Unknown [id number] 2.16.84 0.1.120361.3.579.2.1259 2003 Unknown [id number] 2.16.84 0.1.462193.3.579.2.1259 2003 Unknown [id number] 2.16.84 0.1.637447.3.579.2.1259 2003 Unknown [id number] 2.16.84 0.1.100858.3.579.2.1259 2003 Unknown [id number] 2.16.84 0.1.070234.3.579.2.125 Unknown [id number] 2.1 6.840.1.629451.19 Unknown [id number] 2.16.8 40.1.252664.3.579.2.531 Social History Date Type Detail Facility Start: 02-11-2024 End: 04-08-2024 Sex Assigned At [facility] Other Start: 07-01-2020 End: 12-22-2022 Tobacco smoking status Never smoked tobacco (finding) [facility] Tobacco smoking status Never [facility] Start: 2005 Sex Assigned At Female [place] Start: 12-22-2022 Tobacco use and exposure Smokeless tobacco non-user [facility] Start: 04-08-2024 End: 09-30-2024 Alcoholic beverage intake Lifetime non-drinker (finding) [facility] Start: 02-11-2024 End: 04-08-2024 History of Social function [facility] Start: 12-22-2022 Alcohol Comment Caffeine: 1-2 cups/day tea, chocolate [facility] Start: 12-24-2022 Gender identity Identifies as female gender (finding) [facility] Start: 12-24-2022 Sexual orientation Heterosexual (finding) [facility] Start: 03-18-2024 [facility] Functional Status Date Assessment Result Facility 10-28-2023 Functional Status N/A [facility] 06-15-2022 Functional Status N/A [facility] 06-09-2022 Functional status Patient at [facility] Work Phone: 05-24-2022 Functional Status N/A [facility] Mental Status Date Assessment Result Facility 06-09-2022 Cognitive function Cognitive Sta tus Patient at Baseline [facility] Work Phone: Clinical Notes 09-13-2021 to 11-12-2024 Jessy Cruz NP - 11/12/2024 3:20 PM John Cruz NP - 10/29/2024 1:30 PM DANNI Archer - 10/16/2024 3:40 PM Felicita Emery LPN - 09/30/2024 9:50 AM EDTPatient Instructions Note Date & Type Note Facility 11-12-2024 History of Present illness Narrative Reason for Appointment: Patient ID: [...] Right 02/01/2024 Arthroscopy w/ MTP @ [facility] OTHER SURGICAL HISTORY 2004 adnoidectomy REVIEW [...] nursing note reviewed. Exam conducted with a wood web weaving machine operator present. Vitals: Estimated body mass index is 29.13 kg/m as calculated from the following: Height as of 02/11/24: 5' 10 . Weight as of this encounter: 203 lb. BP: 122/84 No LMP recorded. Patient is . ASSESSMENT & PLAN ICD-10-CM 1. Third trimester ([facility]) Z34.93 CULTURE, GROUP B STREP WITH SUSCEPTIBLITY [...] for routine OB appointment. GBS cultures obtained. Patient has not heard from anesthesia regarding epidural and concerns with history of lesions on spine will make referral for televisit. I left a message today with the Director of [facility] to contact the patient regarding epidural concerns. Documented by Jessy Cruz NP on behalf of: NANCY Lewis documented in this encounter [facility] 10-29-2024 History of Present illness Narrative Reason for Appointment: Patient ID: [...] Right 02/01/2024 Arthroscopy w/ MTP @ [facility] OTHER SURGICAL HISTORY 2004 adnoidectomy REVIEW [...] nursing note reviewed. Exam conducted with a wood web weaving machine operator present. Vitals: Estimated body mass index is 27.81 kg/m as calculated from the following: Height [...] week for routine OB appointment. Documented by Jessy Cruz NP on behalf of: Benji Leung DO documented in this encounter [facility] 10-16-2024 History of Present illness Narrative Reason for Appointment: Patient ID: [...] Name Age of Onset Arthritis Mother Keely Wagn Dislocations Mother Keely Wang Rheumatologic disease Mother Keely Wang Hypertension Father Diabetes Brother Hypertension Maternal Grandmother Aure Starr Cancer Maternal Grandmother Aure Starr Cancer Maternal Grandfather Stepan Wang Cancer Paternal Grandmother Izzy Priceado SURGICAL HISTORY Past Surgical History: Procedure Laterality Date INNER EAR SURGERY 2005 tubes in ears KNEE CARTILAGE SURGERY Right 02/01/2024 Arthroscopy w/ MTP @ [facility] OTHER SURGICAL HISTORY 2004 adnoidectomy REVIEW [...] reviewed. Vitals: Estimated body mass index is 27.81 kg/m as calculated from the following: Height as of 02/11/24: 5' 10 . Weight as of this encounter: 193 lb 12.8 oz. BP: 122/76 No LMP recorded. Patient is . ASSESSMENT & PLAN ICD-10-CM 1. Third trimester Z34.93 2. 32 weeks gestation of Z3A.32 3. Low-lying placenta O44.40 US OB transvaginal Return OB: Patient presents today for a routine obstetrics appointment. Patient is currently 32w2d . Patient states she is doing well but has complaints of being tired due to current . Patient has verbalizes frequent movement. labor precautions was discussed/given and patient was instructed to perform kick counts three times a day. Orders Placed This Encounter Procedures US OB transvaginal Follow Up: Patient is to return to office in 2 week for routine OB appointment. Documented by DANNI Rodgers on behalf of: DANNI Rodgers documented in this encounter [facility] 09-30-2024 History of Present illness Narrative Reason for Appointment: Patient ID: [...] SURGERY Right 02/01/2024 [facility]/ [facility] OTHER SURGICAL HISTORY 2004 adnoidectomy REVIEW OF [...] nursing note reviewed. Exam conducted with a wood web weaving machine operator present. Vitals: Estimated body mass index is 27.52 kg/m as calculated from the following: Height as of 02/11/24: 5' 10 . Weight as of this encounter: 191 lb 12.8 oz. BP: 120/74 No LMP recorded. Patient is . ASSESSMENT & PLAN ICD-10-CM 1. Third trimester Z34.93 2. 30 weeks gestation of Z3A.30 Return OB: Patient presents today for a routine obstetrics appointment. Patient is currently 30w0d . Patient states she is doing well but has complaints of being tired due to current . Patient has verbalizes frequent movement. labor precautions was discussed/given and patient was instructed to perform kick counts three times a day. Given growth ultrsound - rx for valtrex faxed to pharmacy Orders Placed This Encounter Procedures US OB follow up transabdominal approach Follow Up: Patient is to return to office in 2 week for routine OB appointment. Documented by Su Emery LPN on behalf of: Benji Leung DO documented in this encounter [facility] 09-10-2024 History of Present illness Narrative Reason for Appointment: Patient ID: [...] Right 02/01/2024 Arthroscopy w/ MTP @ [facility] OTHER SURGICAL HISTORY 2004 adnoidectomy REVIEW [...] nursing note reviewed. Exam conducted with a wood web weaving machine operator present. Vitals: Estimated body mass index is 26.98 kg/m as calculated from the following: Height as of 02/11/24: 5' 10 . Weight as of this encounter: 188 lb. BP: 118/70 No LMP recorded. Patient is . ASSESSMENT & PLAN ICD-10-CM 1. Second trimester Z34.92 POCT urinalysis dipstick manually resulted 2. 27 weeks gestation of Z3A.27 3. Low-lying placenta O44.40 Return OB: Patient presents today for a routine obstetrics appointment. Patient is currently 27w1d . Patient states she is doing well but has complaints of being tired due to current , but no further complaints of nausea. Patient has verbalizes frequent movement. labor precautions was discussed/given and patient was instructed to perform kick counts three times a day. Orders Placed This Encounter Procedures POCT urinalysis dipstick manually resulted Follow Up: Patient is to return to office in 3 week for routine OB appointment. Patient to obtain CBC and 1 hour glucose today. Patient with O negative blood type and RH + on unity screen. Rhogam to be given at 28 weeks and sent to [facility] infusion on 06/11/24. Documented by Jessy Cruz NP on behalf of: Jessy Cruz NP documented in this encounter [facility] 08-13-2024 History of Present illness Narrative Reason for Appointment: Patient ID: [...] Right 02/01/2024 Arthroscopy w/ MTP @ [facility] OTHER SURGICAL HISTORY 2004 adnoidectomy REVIEW [...] nursing note reviewed. Exam conducted with a wood web weaving machine operator present. Vitals: Estimated body mass index is 25.8 kg/m as calculated from the following: Height as of 02/11/24: 5' 10 . Weight as of this encounter: 179 lb 12.8 oz. BP: 112/64 No LMP recorded. Patient is . ASSESSMENT & PLAN ICD-10-CM 1. Second trimester Z34.92 POCT urinalysis dipstick manually resulted 2. 23 weeks gestation of Z3A.23 3. Diabetes mellitus screening Z13.1 CBC Glucose tolerance, 1 hour CBC Glucose tolerance, 1 hour Patient presents today for a routine obstetrics appointment. Patient is currently 23w1d with a Estimated Date of Delivery: 12/09/24. Pt given glucola order with instructions to schedule. Discussed spinal tap and lesions found. Pt discussed epidural vs no-epidural. Will have meeting with anesthesiologist around 32-34 weeks. Documented by Su Emery LPN on behalf of: Benji Leung DO documented in this encounter [facility] 07-16-2024 History of Present illness Narrative Reason for Appointment: Patient ID: [...] SURGERY Right 02/01/2024 Arthroscopy w/ [facility]TP @ [facility] OTHER SURGICAL HISTORY 2004 adnoidectomy REVIEW OF [...] obtained without difficulty and patient was given msAFP order to have obtained. Orders Placed This Encounter Procedures US OB 14+ weeks anatomy scan CHLAMYDIA TRACHOMATIS (GENITO/STI) Neisseria gonorrhea DNA probe, direct Alpha fetoprotein, maternal POCT urinalysis dipstick manually resulted Follow Up: Patient is to return to our office in 4 weeks for routine OB appointment Documented by DANNI Rodgers on behalf of: DANNI Rodgers documented in this encounter [facility] 06-17-2024 History of Present illness Narrative Reason for Appointment: Patient ID: [...] Right 02/01/2024 Arthroscopy w/ MTP @ [facility] OTHER SURGICAL HISTORY 2004 adnoidectomy REVIEW [...] nursing note reviewed. Exam conducted with a wood web weaving machine operator present. Vitals: Estimated body mass index is [...] or undercooked meat, and stay away from [facility]. Patient has been consulted regarding any further do's and don'ts of . Patient voiced understanding and all questions and concerns were answered. Orders Placed This Encounter Procedures POCT urinalysis dipstick manually resulted Follow Up: Patient is to return in 4 weeks for routine OB appointment. Documented by Su Emery LPN on behalf of: Benji Leung DO documented in this encounter [facility] 05-20-2024 History of Present illness Narrative Reason for Appointment: Patient ID: [...] SURGERY Right 02/01/2024 Arthroscopy w/ MTP @ [facility] OTHER SURGICAL HISTORY 2004 adnoidectomy No Known [...] or undercooked meat, and stay away from [facility]. Patient has also been advised to [...] Georgie Rios MA documented in this encounter [facility] 04-15-2024 History of Present illness Narrative Reason for Appointment: Patient ID: [...] Relation Name Age of Onset Arthritis Mother Keeyl Wang Dislocations Mother Keely Wang Rheumatologic disease Mother Keely Wang Hypertension Father Diabetes Brother Hypertension Maternal Grandmother Aure Starr Cancer Maternal Grandmother Aure Starr Cancer Maternal Grandfather Stepan Wang Cancer Paternal Grandmother Izzy Gutiérrez SURGICAL HISTORY Past Surgical History: Procedure Laterality Date INNER EAR SURGERY 2005 tubes in ears KNEE CARTILAGE SURGERY Right 02/01/2024 Arthroscopy w/ [facility] @ [facility] OTHER SURGICAL HISTORY 2004 adnoidectomy REVIEW OF [...] nursing note reviewed. Exam conducted with a wood web weaving machine operator present. Vitals: Estimated body mass index is [...] Benji Leung DO documented in this encounter [facility] 04-08-2024 History of Present illness Narrative Images from the original note were not included. [address] , [address] [facility], [address] P: [phone] F: [phone] [employer] Historian of [employer]: patient Heena Wang is a 18 y.o. [...] capsule; Refill: 0 documented in this encounter [facility] 02-11-2024 History of Present illness Narrative Images from the original note [...] use for discomfort. documented in this encounter [facility] 02-11-2024 Instructions DANNI Judd - 02/11/2024 [...] use for discomfort. documented in this encounter [facility] 10-28-2023 Hospital Discharge instructions Patient Education 10/28/2023 12:35:22 Knee Sprain, [...] sitting or lying down. General instructions Take bzmg-etv-pobrdea and prescription medicines only as told by [...] provider. Document Revised: 08/14/2022 Document Reviewed: 03/26/2020 [employer] Patient Education 2022 [employer] 10/28/2023 12:35:22 How to Use a [...] provider. Document Revised: 02/10/2022 Document Reviewed: 02/10/2022 [employer] Patient Education 2022 [employer] 10/28/2023 12:35:22 Radial Nerve Palsy Radial [...] provider. Document Revised: 06/29/2021 Document Reviewed: 06/29/2021 [employer] Patient Education 2022 [employer] 10/28/2023 12:35:22 Crutch Use, Adult, Bunp-ko-Mypf Crutch Use, Adult Crutches are used to [...] you. Keep your weight over the hand bench examiner. 3.Bring the good leg forward to meet the crutches or to land a little bit ahead of them. 4.Repeat. Going up steps If there is no handrail: 1.Walk up to steps and put weight on hand bench examiner to step up. 2.Step up with [...] provider. Document Revised: 11/26/2019 Document Reviewed: 11/26/2019 [employer] Patient Education 2022 [employer]. Follow Up Care 10/28/2023 11:08:54 With:Rayne Rivera Address: [address] [place] [phone]- Business (1) When:10/31/2023 12:11:58 With:MORRO HAUSER Address: [address] [place] [phone] Business (1) When:Within 3 Day(s) [facility] 03-02-2023 Evaluation note Encounter Date Diagnosis Assessment Notes Feb, Sore throat (ICD-10 - J02.9) 13 Feb, 2023 Viral upper respiratory infection (ICD-10 - J06.9) Viral upper respiratory infection: adult home care material was printed Drink plenty fluids, get plenty of rest. Take Tylenol or Motrin for aches pains or fevers. Take Mucinex or Sudafed as needed for congestion. Follow-up with your family physician if no improvement in 2 to 3 days. May return to work tomorrow [employer] Other 01-26-2023 Hospital Discharge instructions Patient Education 06/15/2022 09:22:12 Acute Urinary Retention, Female, Jswb-yd-Wnys Acute Urinary Retention, Female Acute urinary retention means that you cannot pee (urinate) at all, or that you pee too little and your bladder is not emptied completely. If it is not treated, it can lead to kidney damage or other serious problems. Follow these instructions at home: Take gobn-btr-rdbhyxf and prescription medicines only as told by [...] 10/23/2008 Document Revised: 04/19/2018 Document Reviewed: 06/08/2017 [employer] Patient Education 2019 [employer] Follow Up Care 06/07/2022 11:50:23 With:Jason COELHO, VALDEMAR Xavier, URO Address: When: Unknown [facility] 01-25-2023 Evaluation note* Encounter Date Diagnosis [...] of care between Inpatient setting and outpatient RN WOUND CARE office. Mother confirms that she did schedule [...] that were not corrected during review process. [employer] Other 01-20-2023 Progress note Author Kt Pearson [place] June 09, 2022 3:41pm Note Date/Time June 09, 2022 3 :42pm [facility] [address] [place] [address] Neurology Progress Note Signed Patient: Heena Wang MR#: [id number] : 2005 Acct:[id number] Age/Sex: 17 / F Adm Date: 3 Loc: Room: [address] [place] [address] Type: ADM IN Attending Dr: Melo Diana [...] get checked out at [facility] She was also experiencing tingling paresthesias that [...] <Electronically signed by Kt Pearson DO> 06/09/22 [id number] [facility] Work Phone: 1(486) 653-546501-19-2023 Progress note Author Kt Pearson [place] June 08, 2022 3:35pm Note Date/Time June 08, 2022 7 :41am [facility] [address] [place] [address] Neurology Progress Note Signed Patient: Heena Wang MR#: [id number] : 2005 Acct:[id number] Age/Sex: 17 / F Adm Date: 3 Loc: 3T Room: [address] [place] [address] Type: ADM IN Attending Dr: Melo Diana [...] level noted with pinprick CEREBELLAR EXAM: * Svlqit-fe-eyoc and alternating movements are intact and normal in bilateral upper extremities * Zqnv-ej-usyb and alternating movements are intact and normal [...] get checked out at [facility].? She was also experiencing tingling paresthesias that [...] 1535 <Electronically signed by RHIANNON Avery> 06/08/[address] [place] [address] Ctr Work Phone: 1(598) 372-767801-19-2023 Progress note Author Melo Diana [place] June 08, 2022 10:23am Note Date/Time June 08, 2022 1 0:11am [facility] [address] [place] [address] Hospitalist Progress Note Signed Patient: Heena Wang MR#: [id number] : 2005 Acct:[id number] Age/Sex: 17 / F Adm Date: 3 Loc: 3T Room: [address] [place] [address] Type: ADM IN Attending Dr: Melo Diana [...] 18:05 06/06/22 18:10 Bisacodyl 10 Mg Supp.Rect SC 06/06/23 18:04 10 mg DAILY PRN Administration [...] IV 06/10/22 17:59 116 mls/hr Chloride DAILY WILLAIM Administration Lactulose 30 gm 06/06/22 18:05 Lactulose [...] Tablet PO 06/15/22 22:01 1,000 mg TID WILLAIM Administration A&P - Hospitalist Assessment/Plan (1) Herpes [...] Rodas catheter placement, and HSV genital and ELECTROMATIC TYPIST infection. 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 Paresthesias have improved more significantly today. Suspect an autoimmune or demyelinating process given findings on MRI brain in cervical and thoracic spine. Unclear how much patient's neurologic complaints are related to this Herpes ELECTROMATIC TYPIST infection. Lumbar puncture results: Lymphocytic pleocytosis, +HSV2 [...] than 0.2, Zamora IgG less than 0.2, [employer] 0.2, scleroderma 0.2, Anti-MOG pending. -CSF albumin, [...] <Electronically signed by Melo Diana MD> 06/08/22 [facility] Work Phone: 1(839) 178-329901-19-2023 Progress note Author Melo Diana [place] June 07, 2022 10:30pm Note Date/Time June 07, 2022 9 :03am [facility] [address] [place] [address] Hospitalist Progress Note Signed Patient: Heena Wang MR#: [id number] : 2005 Acct:[id number] Age/Sex: 17 / F Adm Date: 3 Loc: Room: [address] [place] [address] Type: ADM IN Attending Dr: Melo Diana [...] 18:05 06/06/22 18:10 Bisacodyl 10 Mg Supp.Rect SC 06/06/23 18:04 10 mg DAILY PRN Administration [...] Rodas catheter placement, and HSV genital and ELECTROMATIC TYPIST infection. 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 Paresthesias have mildly improved, have moved down from the region of her umbilicus down to her ankle and foot region. Unclear how much patient's neurologic complaints are related to this Herpes ELECTROMATIC TYPIST infection. Lumbar puncture results: Clear, colorless fluid [...] than 0.2, Zamora IgG less than 0.2, MANAGER BUSINESS SYSTEMS 0.2, scleroderma 0.2, Anti-MOG pending. -CSF albumin, [...] took multiple nursing attempts to replace the Roads catheter. -At this time Rodas catheter is [...] above. Documented By: Melo Diana MD 3 2379 Signed By: <Electronically signed by Melo Diana MD> 06/07/22 2233 [facility] Work Phone: 1(565) 408-824301-18-2023 Progress note Author Kt Pearson [place] June 07, 2022 3:13pm Note Date/Time June 07, 2022 7 :38am [facility] [address] [place] [address] Neurology Progress Note Signed Patient: Heena Wang MR#: [id number] : 2005 Acct:[id number] Age/Sex: 17 / F Adm Date: 3 Loc: Room: [address] [place] [address] Type: ADM IN Attending Dr: Melo Diana [...] level noted with pinprick CEREBELLAR EXAM: * Glgjda-ul-oxlr and alternating movements are intact and normal in bilateral upper extremities * Fxqa-jt-hmol and alternating movements are intact and normal [...] get checked out at [facility] She was also experiencing tingling paresthesias that [...] <Electronically signed by Kt Pearson DO> 06/07/22 2555 <Electronically signed by RHIANNON Avery> 06/07/22 1206 [facility] Work Phone: 1(948) 831-960601-17-2023 Progress note Author Melo Diana [place] June 06, 2022 4:37pm Note Date/Time June 06, 2022 8 :26am [facility] [address] [place] [address] Hospitalist Progress Note Signed Patient: Heena Wang MR#: [id number] : 2005 Acct:[id number] Age/Sex: 17 / F Adm Date: 3 Loc: Room: [address] [place] [address] Type: ADM IN Attending Dr: Melo Diana [...] 18 151/72 H 96 Room Air 06/06/22 03:06/06/22 03:26 06/06/22 03:06/06/22 03:06/06/22 03:06/06/22 03:26 Narrative: CONSTITUTIONAL: Patient resting comfortably in [...] 09:00 Valacyclovir 500 Mg Tablet PO TID [facility] A&P - Hospitalist Assessment/Plan (1) [...] Bilateral Paresthesia of the Lower Extremities 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 Unclear how much patient's neurologic complaints are related to this Herpes ELECTROMATIC TYPIST infection. Lumbar puncture results: Clear, colorless fluid [...] -Immunology for: LIZZY, SS?A/Ro, SS-B/La, Zamora IgG, MANAGER BUSINESS SYSTEMS, scleroderma pending -CSF albumin, oligoclonal IgG bands, [...] signed by Melo Diana MD> 06/06/22 1637 [facility] Work Phone: 1(771) 978-209501-17-2023 Progress note Author Kt Pearson [place] June 06, 2022 3:31pm Note Date/Time June 06, 2022 7 :55am [facility] [address] [place] [address] Neurology Progress Note Signed Patient: Heena Wang MR#: [id number] : 2005 Acct:[id number] Age/Sex: 17 / F Adm Date: 3 Loc: 3T Room: [address] [place] [address] Type: ADM IN Attending Dr: Melo Diana [...] level noted with pinprick CEREBELLAR EXAM: * Gifceg-cr-twqb and alternating movements are intact and normal in bilateral upper extremities * Ihbz-vb-ktbt and alternating movements are intact and normal [...] get checked out at [facility].? She was also experiencing tingling paresthesias that [...] discharge. Documented By: Kt Pearson DO 06/06/22 7970 Signed By: <Electronically signed by Kt Pearson DO> 06/06/22 1531 <Electronically signed by RHIANNON Moseley Jermaine Avery> 06/06/22 0943 [facility] Work Phone: 1(691) 751-853601-17-2023 Consult note Author Rayne Vitale [place] June 06, 2022 10:21am Note Date/Time June 06, 2022 1 0:09am [facility] [address] [place] [address] Infect. Disease Consult Note Signed Patient: Heena Wang MR#: [id number] : 2005 Acct:[id number] Age/Sex: 17 / F Adm Date: 3 Loc: Room: [address] [place] [address] Type: ADM IN Attending Dr: Melo Diana [...] period of time. She had seen at [facility] care and was given oral Flagyl [...] noted below or in HPI [facility] Attestation Statement: The following information was validated [...] 100 Mg Capsule) 100 mg PO BID [facility] Stop: 06/04/23 20:59 Last Admin: 06/06/22 08:46 Dose: 100 mg Methylprednisolone Sodium Succinate 1,000 mg/ Sodium Chloride 116 mls @ 116 mls/hr IV DAILY [facility] Stop: 06/08/22 17:59 Last Admin: 06/06/22 09:47 Dose: 116 mls/hr Morphine Sulfate (Morphine Sulfate 2 Mg/Ml Vial) 2 mg IV-PUSH Q4H PRN PRN Reason: Pain Last Admin: 06/04/22 02:57 Dose: 2 mg Polyethylene Glycol (Polyethylene Glycol 3350 17 Gm Powd.Pack) 17 gm PO DAILY [facility] Stop: 06/04/23 19:44 Last Admin: 06/06/22 08:46 Dose: 17 gm Valacyclovir HCl (Valacyclovir 500 Mg Tablet) 1,000 mg PO TID [facility] Last Admin: 06/06/22 08:46 Dose: [...] signed by MD Rayne Vitale> 06/06/22 1025 [facility] Work Phone: 1([phone] 855-953201-16-2023 Progress note Author Melo Diana [place] June 05, 2022 5:58pm Note Date/Time June 05, 2022 9 :00am [facility] [address] [place] [address] Hospitalist Progress Note Signed Patient: Heena Wang MR#: [id number] : 2005 Acct:[id number] Age/Sex: 17 / F Adm Date: 3 Loc: Room: [address] [place] [address] Type: ADM IN Attending Dr: Melo Diana [...] -Immunology for: LIZZY, SS?A/Ro, SS-B/La, Zamora IgG, MANAGER [employer] SYSTEMS, scleroderma pending -Lumbar puncture results pending. Discussed [...] <Electronically signed by Melo Diana MD> 06/05/[address] [place] [address] Work Phone: 1(481) 400-728701-16-2023 Progress note Author Kt Pearson [place] June 05, 2022 5:19pm Note Date/Time June 05, 2022 9 :08am [facility] [address] [place] [address] Neurology Progress Note Signed Patient: Heena Wang MR#: [id number] : 2005 Acct:[id number] Age/Sex: 17 / F Adm Date: 3 Loc: Room: [address] [place] [address] Type: ADM IN Attending Dr: Melo Diana [...] level noted with pinprick CEREBELLAR EXAM: * Qocpuk-tt-mjbd and alternating movements are intact and normal in bilateral upper extremities * Evsv-la-keie and alternating movements are intact and normal [...] get checked out at [facility] She was also experiencing tingling paresthesias that [...] signed by RHIANNON Avery> 06/05/22 1042 [facility] Work Phone: 1(804) 982-714001-16-2023 [place]01-15-2023 Progress note Author Ravi Zhang [place] June 04, 2022 6:44pm Note Date/Time June 04, 2022 1 0:01am [facility] [address] [place] [address] Hospitalist Progress Note Signed Patient: Heena Wang MR#: [id number] : 2005 Acct:[id number] Age/Sex: 17 / F Adm Date: 3 Loc: Room: [address] [place] [address] Type: ADM IN Attending Dr: Ravi Zhang [...] <Electronically signed by Ravi Zhang DO> 06/04/22 5170 [facility] Work Phone: 1(806) 184-825501-15-2023 Consult note Author Isaías Pan [place] June 04, 2022 2:39pm Note Date/Time June 04, 2022 2 :19pm [facility] [address] [place] [address] RN WOUND CARE Consult Note Signed Patient: Heena Wang MR#: [id number] : 2005 Acct:[id number] Age/Sex: 17 / F Adm Date: 3 Loc: Room: [address] [place] [address] Type: ADM IN Attending Dr: Ravi Zhang [...] symptoms in the past that resemble this. [facility] Vaccinated for COVID-19?: Yes Medical [...] Mg Tablet) 1,000 mg PO BID WILLIAM TOOLING ENGINEERING TECH - Exam Physical Exam Vital signs: Temp [...] lymph nodes. Lower extremities showed no edema. TOOLING ENGINEERING TECH - Results Laboratory Results - Last 48 [...] % (Auto) 45.7, Lymph % (Auto) 42.0, Swisher % (Auto) 9.4, Eos % (Auto) 0.9, Baso % (Auto) 2.0, Nucleat RBC Rel Count 0.3, Neut # (Auto) 3.1, Lymph # (Auto) 2.9, Swisher # (Auto) 0.6, Eos # (Auto) 0.1, Baso # (Auto) 0.1, ESR 26 H Microbiology - Results from entire visit 06/04/22 12:05 Vaginal Fungal Smear - Final 06/04/22 12:05 Vaginal Trichomonas Wet Mount - Final TOOLING ENGINEERING TECH - A/P (1) Acute urinary retention: Code(s): R33.8 - Other retention of urine Status: Acute (2) Primary vulvovaginal herpes simplex infection: Plan: Vulvar lesions have been cultured and GC, chlamydia and a wet prep were obtained. I have initiated Valtrex 1000 mg twice daily for the next 7 to 10 days. We discussed with Alberts my suspicion that this is a primary [...] signed by Isaías Pan DO> 06/04/22 1439 [facility] Work Phone: 1(695) 908-919301-15-2023 Consult note Author Iman Gomez [place] June 04, 2022 1:38pm Note Date/Time June 04, 2022 1 1:04am [facility] [address] [place] [address] Urology Consult Note Signed Patient: Heena Wang MR#: [id number] : 2005 Acct:[id number] Age/Sex: 17 / F Adm Date: 3 Loc: Room: [address] [place] [address] Type: ADM IN Attending Dr: Ravi Zhang DO Copies to: WINNIE Thomas MD Kristopher L Lindbloom, DO~ History of Present Illness Consult Details Consult Date: 06/04/2022 Reason for Urology Consult: Urinary retention Requesting Provider: Ravi Zhang DO HPI: 17 year old healthy female transferred from outside hospital to [place] on 06/02/2022 with acute urinary retention and [...] has not beendiagnosed with PCOS, no prior TOOLING ENGINEERING TECH evaluation. Has appointment this week. Her paresthesias [...] nonpalpable. There is no CVA tenderness bilaterally. Rdoas to gravity with concentrated light keely urine. [...] % (Auto) 45.7, Lymph % (Auto) 42.0, Swisher % (Auto) 9.4, Eos % (Auto) 0.9, Baso % (Auto) 2.0, Nucleat RBC Rel Count 0.3, Neut # (Auto) 3.1, Lymph # (Auto) 2.9, Swisher # (Auto) 0.6, Eos # (Auto) 0.1, [...] Neurologic evaluation negative. Patient was down with RN WOUND CARE getting examined due to swollen and painful [...] <Electronically signed by Iman Gomez MD> 06/04/22 0918 [facility] Work Phone: [phone]) 547-264301-15-2023 Progress note Author Kt Pearson [place] June 04, 2022 11:43am Note Date/Time June 04, 2022 1 1:43am [facility] [address] [place] [address] Neurology Progress Note Signed Patient: Heena Wang MR#: [id number] : 2005 Acct:[id number] Age/Sex: 17 / F Adm Date: 3 Loc: 3T Room: [address] [place] [address] Type: ADM IN Attending : Ravi Zhang DO Copies to: ~ Date [...] by Kt Pearson DO> 06/04/22 1143 [facility] Work Phone: 1([phone] 434-374401-14-2023 Progress note Author Ravi Zhang [place] June 03, 2022 6:07pm Note Date/Time June 03, 2022 6 :07pm [facility] [address] [place] [address] Hospitalist Progress Note Signed Patient: Heena Wang MR#: [id number] : 2005 Acct:[id number] Age/Sex: 17 / F Adm Date: 3 Loc: Room: [address] [place] [address] Type: ADM IN Attending Dr: Ravi Zhang [...] <Electronically signed by Ravi Zhang DO> 06/03/221806 [facility] Work Phone: 1(782) 589-291501-14-2023 Consult note Author Kt Pearson [place] June 03, 2022 12:02pm Note Date/Time June 03, 2022 1 0:02am [facility] [address] [place] [address] Neurology Consult Note Signed Patient: Heena Wang MR#: [id number] : 2005 Acct:[id number] Age/Sex: 17 / F Adm Date: 3 Loc: 3T Room: [address] [place] [address] Type: ADM IN Attending Dr: Ravi Zhang DO Copies to: DO Morro Lopez APRN Kristopher L Lindbloom, ~ HPI Consult Date: 06/03/22 Filer Helper: Kt Pearson, PMFSH Vaccinated for COVID-19?: Yes [...] woman with history of scoliosis. Works at [employer]. After not being able to urinate for 8+ hours [facility] She was also experiencing tingling paresthesias that [...] signed by Kt Pearson DO> 06/03/22 1204 [facility] Work Phone: 1(960) 634-480301-13-2023 History and physical note Author Ravi Zhang [place] June 02, 2022 9:44pm Note Date/Time June 02, 2022 9 :44pm [facility] [address] [place] [address] Hospitalist H&P Signed Patient: Heena Wang MR#: [id number] : 2005 Acct:[id number] Age/Sex: 17 / F Adm Date: 3 Loc: Room: [address] [place] [address] Type: ADM IN Attending Dr: Ravi Zhang [...] mentioned elsewhere in the documentation. [facility] Attestation Statement: The following information was validated with the patient. Meds Medications and Allergies Home Medications ibuprofen 100 mg tablet mg 01/13/23 [History] metronidazole 250 mg tablet mg 06/02/22 [...] and equal bilaterally. Lower extremities: She describes xjyi-lvm-ffepqgc type paresthesias all the way from the [...] <Electronically signed by Ravi Zhang DO> 06/02/222143 [facility] Work Phone: [phone]) 767-608901-04-2023 Hospital Discharge instructions Follow Up Care 05/24/2022 14:39:56 With:MORRO HAUSER CNP Address: [address] [place] [address]- When: Unknown [facility] 01-01-2023 History general Narrative - [...] History Rodas catheter placement 023 Hospitalization History [facility] - Viral men ingitis, urinary retention 06/02 - 06/09 2022 [employer] Other 01-01-2023 History general Narrative - Reported* Type Description Date Medical History Scoliosis Medical History Seasonal allergies Medical History 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 [employer] Other 07-07-2022 Evaluation note* Encounter Date Diagnosis Assessment Notes Treatment Notes Treatment Clinical Notes Nov, Exposure to COVID-19 virus (ICD-10 - Z20.822) [employer] Other 07-05-2022 Evaluation note* Encounter Date Diagnosis [...] continue medication, discontinuing medication or follow-up with RN WOUND CARE.I did explain that there are other underlying pathologies that can cause painful cramping. This work-up and diagnosis would need to be done by RN WOUND CARE especially due to her age.Patient verbalizes understanding and will let me know if she would like to continue the control or not. Nov, Other *Progress note was completed with the assistance of voice recognition software for dictation purposes. Please excuse any grammatical errors that were not corrected during review process. [employer] Other 04-26-2022 Evaluation note* Encounter Date Diagnosis [...] cancer, but decreased risk for ovarian/uterine cancers, care home. Can call in 3 months for refills if desired. 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 Metronidazole adverse reaction acute Paresthesia of both lower extremities acute Primary vulvovaginal herpes simplex infection acute Vaginal discharge acute Vulvar ulceration acute [facility] Work Phone: Evaluation noteNo InformationNort [email or web address] Other Evaluation noteNo assessment information available [facility] Work Phone: Evaluation note* Diagnosis Dysuria- Primary Acute cystitis without hematuria documented in this encounter [facility] Diagnosis Encounter for surveillance of other contraceptive documented in this encounter [facility]* Diagnosis Status post arthroscopy of right knee- Primary Other postprocedural status documented in this encounter [facility]* Diagnosis Missed menses 11 weeks gestation of , unspecified gestational age Encounter for supervision of normal first in first trimester documented in this encounter [facility]* Diagnosis Second trimester state, incidental 15 weeks gestation of documented in this encounter [facility]* Diagnosis Well woman exam with routine gynecological exam Routine gynecological examination Second trimester state, incidental 19 weeks gestation of Vaginal discharge Leukorrhea, not specified as infective STD exposure Screening, , for anatomic survey Encounter for anatomic survey documented in this encounter [facility]* Diagnosis Second trimester state, incidental 23 weeks gestation of Diabetes mellitus screening Screening for diabetes mellitus documented in this encounter [facility]* Diagnosis Second trimester state, incidental 27 weeks gestation of Low-lying placenta Hemorrhage from placenta previa, unspecified as to episode of care documented in this encounter [facility]* Diagnosis Third trimester state, incidental 30 weeks gestation of size inconsistent with dates HSV (herpes simplex virus) infection Herpes simplex without mention of complication documented in this encounter [facility]* Diagnosis Third trimester state, incidental 32 weeks gestation of Low-lying placenta Hemorrhage from placenta previa, unspecified as to episode of care documented in this encounter [facility]* Diagnosis Third trimester state, incidental 34 weeks gestation of documented in this encounter [facility]* Diagnosis Third trimester ([facility]) state, incidental documented in this encounter [facility] general Narrative - Reported* Type Description Date Medical History scoliosis Surgical History tubes in ears twice 2004 Surgical History adenoidectomy 2004 [employer] Other History general Narrative - Reported* Type Description Date Medical History scoliosis Medical History seasonal allergies Surgical History tubes in ears twice 2004 Surgical History adenoidectomy 2004 [employer] Other Hospital Discharge instructions No data available for this section [facility] Additional Instructions Maintain and routine care to rodas. Maintain rodas until you see Dr. Gomez and she gives you further orders.[facility] Work Phone: Progress note No data available for this section [facility] Chief Complaint and Reason for Visit [...] Referral Reason 07/26/22 @ 1:30pm NICOLE TRUJILLO [facility] SPECIFICALLY ; PATIENT'S MOTHER CLEARED WITH PROVIDER HERSELF PLEASE CONTACT MOTHER KEELY AT [phone] TO SCHEDULE Diagnosis 1 Anxiety (F41.9) Referral Organization [facility] e Farhad Referring Provider First Name Morro Referring Provider Last Name Talon Referring Provider Specialty Nurse Praccj barronioner Referred Organization [facility] Referred Address [address] [place], [place],[address] Referred Provider Specialty Psychiatry Referral Priority Routine Referral Appointment Date 2022-07-26 General Notes Anna Borjasjacquie Purcell 023 02:12:31 PM >Received today and fax referral. [facility] Referral Dept will call patient and schedule Tricia Borjas 06/21/2022 09:26:23 AM >Fax letter for appt update Suad Tricia M 06/27/2022 08:10:07 AM >Received letter back with [...] Pearson , Other Provider Active Isaías Pan DO Other Provider Active Iman Gomez MD Other Provider Active Melo Diana MD Attending Provider Active Rayne Vitale MD Other Provider Active Team Status: Active Member Role Status Dates Morro Hauser , WINNIE Primary Care Provider Active Team Status: Inactive Member Role Status Dates Morro Hauser , CLERICAL GRADER Primary Care Provider Active Samra Greenberg APRN Emergency Provider Active Outbound Telemarketer Relationship Specialty Start Date End Date Morro Hauser MD [address] [place] [address] [place] [address] Primary Care Provider Family Medicine 01/11/23 Outbound Telemarketer Relationship Specialty Start Date End Date Morro Hauser MD [address] [place] [address] [place] [address] Primary Care Provider Family Medicine 01/11/23 Outbound Telemarketer Relationship Specialty Start Date End Date Morro Hauser MD [address] [place] [address] [place] [address] Primary Care Provider Family Medicine 01/11/23 Outbound Telemarketer Relationship Specialty Start Date End Date Morro Hauser MD [address] [place] [address] [place] [address] Primary Care Provider Family Medicine 01/11/23 Outbound Telemarketer Relationship Specialty Start Date End Date Morro Hauser MD [address] [place] [address] [place] [address] Primary Care Provider Family Medicine 01/11/23 Outbound Telemarketer Relationship Specialty Start Date End Date Morro Hauser MD [address] [place] [address] [place] [address] Primary Care Provider Family Medicine 01/11/23 Outbound Telemarketer Relationship Specialty Start Date End Date Morro Hauser MD [address] [facility] [place] [address] Primary Care Provider Family Medicine 01/11/23 Outbound Telemarketer Relationship Specialty Start Date End Date Morro Hauser MD [address] [place] [address] Primary Care Provider Family Medicine 01/11/23 Outbound Telemarketer Relationship Specialty Start Date End Date Morro Hauser NP [address] [facility] [facility] [facility] [place] [address] Primary Care Provider Family Medicine 01/11/23 Outbound Telemarketer Relationship Specialty Start Date End Date Morro Hauser NP [address] [place] [address] Primary Care Provider Family Medicine 01/11/23 Outbound Telemarketer Relationship Specialty Start Date End Date Morro Hauser NP Primary Care Provider Family Medicine 01/11/23 Outbound Telemarketer Relationship Specialty Start Date End Date Morro Hauser NP Primary Care Provider Family Medicine 01/11/23 Outbound Telemarketer Relationship Specialty Start Date End Date Morro Hauser NP Primary Care Provider Family Medicine 01/11/23 Outbound Telemarketer Relationship Specialty Start Date End Date Morro Hauser NP Primary Care Provider Family Medicine 01/11/23 Outbound Telemarketer Relationship Specialty Start Date End Date Morro Hauser NP Primary Care Provider Family Medicine 01/11/23 Outbound Telemarketer Relationship Specialty Start Date End Date Morro Hauser NP Primary Care Provider Family Medicine 01/11/23 Outbound Telemarketer Relationship Specialty Start Date End Date Morro Hauser NP Primary Care Provider Family Medicine 01/11/23 Goals (unrecognized section and content) Goals may be documented in a n alternate section INFORMATION SOURCE (unrecogn ized section and content) DATE CREATED AUTHOR 07/08/2022 [facility] DATE CREATED AUTHOR AUTHOR'S ORGANIZ ATION 11/22/2023 [facility] DATE CREATED AUTHOR AUTHOR'S ORGANIZ ATION 05/18/2024 [facility] DATE CREATED AUTHOR AUTHOR'S ORGANIZ ATION 11/01/2024 [facility] dical Specialists [facility] FOR RECORDS PERTAINING TO PATIENTS WHO [...] BE BASED ON THE PRIMARY CLINICAL RECORDS. [facility] [employer] provides no warranty or guarantee of the accuracy or completeness of information in this document.
== END 2024-11-12 19:33 | disposition home or self-care (01) ==
LOC: LAB 19:32
PROVIDERS: PCP Nurse Practitioner Family; Visit Provider Physician Assistant
DX: Z34.93 Encounter for supervision of normal pregnancy, unspecified, third trimester (principal); Z3A.36 36 weeks gestation of pregnancy
CPT/HCPCS: 87081

== ENCOUNTER 2024-12-08 18:38 | Inpatient (IN) | payer MEDICAID, SELFPAY ==
--- OUTSIDE RECORDS SUMMARY | 2023-06-19 06:00 | XMS_ITS ---
Author Organization [facility] Address [address] [place] [address] Care Team Providers Care Commercial Real Estate Broker Name Role Phone Jessica Nicole Primary Care Provider Betty Steele Unavailable [phone] REASON FOR VISIT med check Encounters Encounter Location Date Provider Diagnosis [facility] [address] [place] [address] 06/19/2023 Nicole Lopez Plan Of Treatment No Information Progress Notes * HEENA WANGDOB:2005 ( 19 yo F)Acc No.[id number]:06/19/2023 Behavioral Health Patient: HEENA SORENSEN Appointment Provider: Jazzy Lopez :2005 A ge:18 Y S ex:Female Date:06/19/2023 [facility] [id number] Subjective: * Chief Complaints: * 1 . med check. * Medical History: Objective: * Vitals: Assessment: Plan: * Treatment: * Images: * Electronic signature of SHELDON Perera FNP on 12/08/2024 at 06:42 PM EDT Sign off status: Pending * Appointment Provider: Jazzy Lopez Date: 0 06/19/2023 Generated for Printi ng/Fasalvadorg/eTransmitting on: 0 12/08/2024 06:42 PM EDT
--- OUTSIDE RECORDS SUMMARY | 2024-05-06 10:39 | XMS_ITS | Continuity of Care Document ---
Author Organization [facility] Address [address] [place] [address] Phone Care Team Providers Care Manufacturing Worker Name Role Phone Trish Castellanos DDS Unavailable Unavailable Allergies, Adverse Reactions, Alerts Substance Reaction Status Criticality No Known Allergies Active No Inform ation Medications Medication Instructions Dosage Effective Dates (start - stop) Status Comments ondansetron HCl 4 mg tablet take 2 tablet by oral route 2 times every day 8 MG - Active Procedures Procedure Date Oral Hygiene Instruction Intraoral-complete Series (bw) Comp Oral Eval New/estab Patient 2023 Advance Directives Directive Yes / No Effective Date File Name No Information Encounters Encounter Description Practice Location Reason(s) For Visit Diagnoses Date Provider Providers Copied on Encounter [facility], [address] [place] [address], [id number], tel:[phone] Dental Clinic dental new (chief complaint) Encounter for screening for dental disorders Emanuel Chambers. . tel:[phone] Family History Family Member Type Diagnosis Age At Onset No Information Payers Payer name Insurance type Covered republican ID Authoriza tion(s) D [employer] Medicaid [employer] [facility] [id number] D Medicaid ap - [facility] [id number] Social History Type Description Quantity Date Captured Comments Alcohol Use Details Unknown Caffeine Use Details Unknown Tobacco Use Status No Information Smoking Status No Information Sex Female Sexual Orientation Don't Know Gender Identity Female Vital Signs Date / Time: Height Weight BMI Pulse Rate Blood Pressure Temperature Respiratory Rate Body Surface Area Head Circumference Head Circ. Percentile Wt./Amor. Percentile BMI percentile Pulse Ox Inhaled Ox 2:54 PM 52 /min 119/79 mm[Hg] 97.00 F Chief Complaint And Reason For Visit From encounter dated 05/06/2024 14:39'. dental new (chief complaint). Description: establish dental care Reason For Referral Reason For Referral No Information Plan Of Treatment Date Type Action Status Goal PRAPARE ASSESSMENT. Due on D due Goal Influenza vaccine. Due on De due Goal RLP. Due on due Goal Hepatitis C screening. Due o n due Goal Tdap Vaccine. Due on 2023 due Goal PAP. Due on due Goal Unhealthy drug use screening . Due on due Goal Tdap. Due on due Goal Hep A. Due on du e Goal Depression screening. Due on due History Of Present Illness Encounter Date Complaint History Of Prese nt Illness dental new establish dental care Functional Status Date Functional Assessmen t No Information Instructions Date Instruction Additional Infor mation No Information Assessments Type Assessment Date No Information Patient Care Teams Name Effective Dates (start - stop) Status Members No Information
--- OUTSIDE RECORDS SUMMARY | 2024-11-26 13:30 | XMS_ITS | Encounter Summary ---
Author Organization [facility] Healthcare Address [address] [place] [address] Care Team Providers Care Sap Sd Analyst Name Role Phone Jenna Hanley CRIME SCENE PHOTOGRAPHER Unavailable Reason for Visit * Reason Comments Routine Visit Encounter Details Date Type Department Care Team (Late st Contact Info) Description 11/26/2024 1:30 PM EDT Routine [facility] [address] [place] [phone] Benji Leung, DO [address] [place] [id number] Third trimester ([facility]); 38 weeks gestation of ([facility]) Social History Tobacco Use Types Packs/Day Years [...] Sign Reading Time Taken Comments Blood Pressure 116/74 11/26/2024 1:49 PM EDT Pulse - - Temperature - - Respiratory Rate - - Oxygen Saturation - - Inhaled Oxygen Concentration - - Weight 92.5 kg (204 lb) 11/26/2024 1:49 PM EDT Height - - Body Mass Index 29.27 02/11/2024 10:00 AM EDT documented in this encounter Progress Notes * Su Emery, FAMILY NURSE - 11/26/2024 1:30 PM EDT Reason for Appointment: Patient [...] Father Diabetes Brother Hypertension Maternal Grandmother Aure Lewisjorge Cancer M[facility] Maternal Grandfather Stepan Benites Cancer Paternal Grandmother Izzy Gutiérrez SURGICAL HISTORY Past Surgical History: Procedure Laterality Date INNER EAR SURGERY 2005 tubes in ears KNEE CARTILAGE SURGERY Right 02/01/2024 Arthroscopy w/ MTP @ [facility] OTHER SURGICAL HISTORY 2004 adnoidectomy REVIEW OF SYSTEMS Review of Systems: Review of Systems Constitutional: Negative. HENT: Negative. Eyes: Negative. Respiratory: Negative. Cardiovascular: Negative. Gastrointestinal: Negative. Genitourinary: Negative. Musculoskeletal: Negative. Skin: Negative. Neurological: Negative. All other systems reviewed and are negative. Hematological: Negative. Endocrine: Negative. Allergic/Immunologic: Negative. OBJECTIVE Objective: Physical Exam Constitutional: Appearance: Normal appearance. She is well-developed. Genitourinary: Vulva normal. Cardiovascular: Rate and Rhythm: Normal rate and [...] nursing note reviewed. Exam conducted with a supervisor dimension warehouse present. Vitals: Estimated body mass index is 29.27 kg/m?? as calculated from the following: Height as of 02/11/24: 5' 10 . Weight as of this encounter: 204 lb. BP: 116/74 No LMP recorded. Patient is . ASSESSMENT & PLAN ICD-10-CM 1. Third trimester ([facility]) Z34.93 POCT urinalysis dipstick manually resulted 2. 38 weeks gestation of ([facility]) Z3A.38 POCT urinalysis dipstick manually resulted Return OB: Patient presents today for a routine obstetrics appointment. Patient is currently 38w1d . Patient states she is doing well but has complaints of being tired due to current . Patient has verbalizes frequent movement. labor precautions was discussed/given and patient was instructed to perform kick counts three times a day. Orders Placed This Encounter Procedures POCT urinalysis dipstick manually resulted Follow Up: Patient is to return to office in 1 week for routine OB appointment. Documented by Su Emery LPN on behalf of: Benji Leung DO documented in this encounter Plan of Treatment Not on file documented as of this encounter Procedures Procedure Name Priority Date/Time Associated Diagnosis Comments POCT URINALYSIS DIPSTICK Routine 11/26/2024 1:54 PM EDT Third trimester ([facility]) 38 weeks gestation of ([facility]) documented in this encounter Results * POCT urinalysis dipstick manually resulted (11/26/2024 1:54 PM EDT) Color, UA Yellow Clarity, UA Clear Glucose, UA Negative Negative - 2000(110) ++++ mg/dL Bilirubin, UA Negative Negative - 4(70) +++ mg/dL Ketones, UA Negative Negative - 160(16) ++++ mg/dL Spec Grav, UA 1.020 1 - 1.03 Blood, UA Negative Negative - 50 Timmy/mcL pH, UA 5.5 5 - 9 Protein, UA Negative Negative - 2000(20) ++++ mg/dL Urobilinogen, UA 1.0 0.2 - 12 mg/dL Leukocytes, UA Negative Negative - 500+++ Hilda/mcL Nitrite, UA Negative Negative - Positive Urine 11/26/2024 1:54 PM EDT Benji Leung DO POINT OF CARE TEST ENTER/EDIT OR DERABLES Final Result documented in this encounter Visit Diagnoses Diagnosis Third trimester ([facility]) state, incidental 38 weeks gestation of ([facility]) documented in this encounter Care Teams Sap Sd Analyst Relationship Specialty Start Date End Date Jenna Hanley NP Primary Care Provider Family Medicine 01/11/23 documented as of this encounter
--- OUTSIDE RECORDS SUMMARY | 2024-12-03 15:30 | XMS_ITS | Encounter Summary ---
Author Organization [facility] Healthcare Address [address] [place] [address] Care Team Providers Care Fork Assembler Name Role Phone Jenna Hanley TRAFFIC ANALYST Unavailable Reason for Visit * Reason Comments Routine Visit Encounter Details Date Type Department Care Team (Late st Contact Info) Description 12/03/2024 3:30 PM EDT Routine [facility] OB [address] [place] [phone] Benji Leung, DO [address] [place] [id number] Third trimester ([facility]); 39 weeks gestation of ([facility]) Social History Tobacco Use Types Packs/Day Years [...] Sign Reading Time Taken Comments Blood Pressure 130/84 12/03/2024 3:44 PM EDT Pulse - - Temperature - - Respiratory Rate - - Oxygen Saturation - - Inhaled Oxygen Concentration - - Weight 95.1 kg (209 lb 12 oz) 12/03/2024 3:44 PM EDT Height - - Body Mass Index 30.1 02/11/2024 10:00 AM EDT documented in this encounter Progress Notes * Su Emery, DENTAL SPECIALIST - 12/03/2024 3:30 PM EDT Reason for Appointment: Patient ID: [...] Hypertension Father Diabetes Brother Hypertension Maternal Grandmother Auremarta Lewisrtdottie Cancer Maternal Grandmother Aure [place] Cancer Maternal Grandfather Stepan Benites Cancer Paternal Grandmother Izzy Gutiérrez SURGICAL HISTORY Past Surgical History: Procedure Laterality Date INNER EAR SURGERY 2005 tubes in ears KNEE CARTILAGE SURGERY Right 02/01/2024 Arthroscopy w/ MTP @ [facility] OTHER SURGICAL HISTORY 2004 adnoidectomy REVIEW OF [...] nursing note reviewed. Exam conducted with a oil lease buyer present. Vitals: Estimated body mass index is 30.1 kg/m?? as calculated from the following: Height as of 02/11/24: 5' 10 . Weight as of this encounter: 209 lb 12 oz. BP: 130/84 No LMP recorded. Patient is . ASSESSMENT & PLAN ICD-10-CM 1. Third trimester ([facility]) Z34.93 POCT urinalysis dipstick manually resulted 2. 39 weeks gestation of ([facility]) Z3A.39 Return OB: Patient presents today for a routine obstetrics appointment. Patient is currently 39w1d . Patient states she is doing well [...] Associated Diagnosis Comments POCT URINALYSIS DIPSTICK Routine 12/03/2024 3:50 PM EDT Third trimester ([facility]) documented in this encounter Results * (ABNORMAL) POCT urinalysis dipstick manually resulted (12/03/2024 3:50 PM EDT) Color, UA Yellow Clarity, UA Clear Glucose, UA Negative Negative - 2000(110) ++++ mg/dL Bilirubin, UA Negative Negative - 4(70) +++ mg/dL Ketones, UA Positive Negative - 160(16) ++++ mg/dL Comment:Moderate Spec Grav, UA 1.030 1 - 1.03 Blood, UA Positive Negative - 50 Timmy/mcL Comment:small pH, UA 6.0 5 - 9 Protein, UA Trace Negative - 2000(20) ++++ mg/dL Urobilinogen, UA 0.2 0.2 - 12 mg/dL Leukocytes, UA Negative Negative - 500+++ Hilda/mcL Nitrite, UA Negative Negative - Positive Urine 12/03/2024 3:50 PM EDT Benji Leung DO POINT OF CARE TEST ENTER/EDIT OR DERABLES Final Result documented in this encounter Visit Diagnoses Diagnosis Third trimester ([facility]) state, incidental 39 weeks gestation of ([facility]) documented in this encounter Care Teams Fork Assembler Relationship Specialty Start Date End Date Jenna Hanley NP Primary Care Provider Family Medicine 01/11/23 documented as of this encounter
[2024-12-08] VITALS (10 sets, daily range): BP systolic 130–156; BP diastolic 77–105; PULSE 72–88; TEMP 36.6
--- OUTSIDE RECORDS SUMMARY | 2024-12-08 18:42 | XMS_ITS | Encounter Summary ---
Author Organization [facility] Address [address] [place] [address] Care Team Providers Care Semiconductor Manufacturing Technician Name Role Phone Jenna Hanley INSTRUCTOR DRAMATIC ARTS Unavailable [phone] Encounter Details Date Type Department Care Team (Late st Contact Info) Description 06/25/2024 Abstract [facility] OB [address] [place] [address] Benji Leung, DO [address] [place], [facility]11 Social History Tobacco Use Types Packs/Day Years [...] as of this encounter Plan of Treatment Not on file documented as of this encounter Visit Diagnoses Not on filedocumented in this encounter Care Teams Semiconductor Manufacturing Technician Relationship Specialty Start Date End Date Jenna Hanley NP Primary Care Provider Family Medicine 01/11/23 documented as of this encounter
--- OUTSIDE RECORDS SUMMARY | 2024-12-08 18:42 | XMS_ITS | Encounter Summary ---
Author Organization [facility] Address [address] [place] [address] Care Team Providers Care Sound Printer Name Role Phone Jenna Hanley GEL COAT SPRAYER Unavailable Encounter Details Date Type Department Care Team (Late st Contact Info) Description 06/19/2024 Abstract [facility] OB [address] [place] [address] Benji Leung, DO [address] [place], [facility]11 Social History Tobacco Use Types Packs/Day Years [...] on filedocumented in this encounter Care Teams Sound Printer Relationship Specialty Start Date End Date Jenna Hanley NP Primary Care Provider Family Medicine 01/11/23 documented as of this encounter
--- OUTSIDE RECORDS SUMMARY | 2024-12-08 18:42 | XMS_ITS | Encounter Summary ---
Author Organization [facility] Address [address] [place] [address] Care Team Providers Care Art Objects Supervisor Name Role Phone Jenna Hanley TUBE MACHINE OPERATOR Unavailable [phone] Encounter Details Date Type Department Care Team (Late st Contact Info) Description 05/22/2024 Abstract [facility] OB [address] [place] [address] Benji Leung, DO [address] [place], [facility] Social History Tobacco Use Types Packs/Day Years [...] on filedocumented in this encounter Care Teams Art Objects Supervisor Relationship Specialty Start Date End Date Jenna Hanley NP Primary Care Provider Family Medicine 01/11/23 documented as of this encounter
--- OUTSIDE RECORDS SUMMARY | 2024-12-08 18:42 | XMS_ITS | Encounter Summary ---
Author Organization [facility] Address [address] [place] [address] Care Team Providers Care Commercial Subcontractor Name Role Phone Jenna Hanley JUNIOR NETWORK ADMINISTRATOR Unavailable [phone] Encounter Details Date Type Department Care Team (Late st Contact Info) Description 12/03/2024 Bamboo flowsheet [facility] OB [address] [place] [phone] Benji Leung, DO [address] [place] [address] Social History Tobacco Use Types Packs/Day Years [...] on filedocumented in this encounter Care Teams Commercial Subcontractor Relationship Specialty Start Date End Date Jenna Hanley NP Primary Care Provider Family Medicine 01/11/23 documented as of this encounter
--- OUTSIDE RECORDS SUMMARY | 2024-12-08 18:42 | XMS_ITS | Encounter Summary ---
Author Organization [facility] Address [address] [place] [address] Care Team Providers Care Technology Assistant Name Role Phone Jenna Hanley PREVENTIVE MEDICINE OFFICER Unavailable Encounter Details Date Type Department Care Team (Late st Contact Info) Description 12/22/2022 Abstract [facility] [address] [place] [phone] Denzel Sosa, DPM FACFAS [address] [place] [id number] Social History Tobacco Use Types Packs/Day Years [...] on filedocumented in this encounter Care Teams Technology Assistant Relationship Specialty Start Date End Date Jenna Hanley NP Primary Care Provider Family Medicine 01/11/23 documented as of this encounter
--- OUTSIDE RECORDS SUMMARY | 2024-12-08 18:42 | XMS_ITS | Encounter Summary ---
Author Organization [facility] Address [address] [place] [address] Care Team Providers Care Processing Clerk Name Role Phone Jenna Hanley OFFICE COPY SELECTOR Unavailable [phone] Encounter Details Date Type Department Care Team (Late st Contact Info) Description 09/09/2024 Results Follow-Up [facility] [address] [place] [address] Anisa Parker LPN [address] [employer] [place] [id number] Social History Tobacco Use Types Packs/Day Years [...] on filedocumented in this encounter Care Teams Processing Clerk Relationship Specialty Start Date End Date Jenna Hanley NP Primary Care Provider Family Medicine 01/11/23 documented as of this encounter
--- OUTSIDE RECORDS SUMMARY | 2024-12-08 18:42 | XMS_ITS | Encounter Summary ---
Author Organization [facility] Address [address] [place] [address] Care Team Providers Care Veterans Adviser Name Role Phone Jenna Hanley SAND BUFFER Unavailable Encounter Details Date Type Department Care Team (Late st Contact Info) Description 11/28/2023 Clinisync Result Encounter [facility] External Department Unsolicited Alejandro Ayala PA [address] [place] [address] Social History Tobacco Use Types Packs/Day Years [...] Technical Comments None Procedure Note Radiology, Radiologist, MD - 11/29/2023 Exam Date/Time: 11/28/2023 07:44 EDT [...] by: NORMA Technologist: FIDEL Technical Comments None us Alejandro RAZO [facility] Final Result documented in this encounter Visit Diagnoses Not on filedocumented in this encounter Care Teams Veterans Adviser Relationship Specialty Start Date End Date Jenna Hanley NP Primary Care Provider Family Medicine 01/11/23 documented as of this encounter
--- OUTSIDE RECORDS SUMMARY | 2024-12-08 18:42 | XMS_ITS | Encounter Summary ---
Author Organization [facility] Address [address] [place] [address] Care Team Providers Care Airport Skilled Maintenance Supervisor Name Role Phone Jenna Hanley PUPIL PERSONNEL WORKER Unavailable Encounter Details Date Type Department Care Team (Late st Contact Info) Description 06/05/2024 Abstract [facility] OB [address] [place] [address] Benji Leung, DO [address] [place], [facility]11 Social History Tobacco Use Types Packs/Day Years [...] on filedocumented in this encounter Care Teams Airport Skilled Maintenance Supervisor Relationship Specialty Start Date End Date Jenna Hanley NP Primary Care Provider Family Medicine 01/11/23 documented as of this encounter
--- OUTSIDE RECORDS SUMMARY | 2024-12-08 18:42 | XMS_ITS | Encounter Summary ---
Author Organization [facility] Address [address] [place] [address] Care Team Providers Care Network Associate Name Role Phone Jenna Hanley MOLD MAKING SUPERVISOR Unavailable [phone] Encounter Details Date Type Department Care Team (Late st Contact Info) Description 06/11/2024 Abstract [facility] OB [address] [place] [address] Benji Leung, DO [address] [facility] [address] [place], [facility]11 Social History Tobacco Use Types Packs/Day Years [...] on filedocumented in this encounter Care Teams Network Associate Relationship Specialty Start Date End Date Jenna Hanley NP Primary Care Provider Family Medicine 01/11/23 documented as of this encounter
--- OUTSIDE RECORDS SUMMARY | 2024-12-08 18:42 | XMS_ITS | Encounter Summary ---
Author Organization [facility] Address [address] [place] [address] Care Team Providers Care Technical Professional Name Role Phone Jenna Hanley STERILISATION TECHNICIAN Unavailable Encounter Details Date Type Department Care Team (Late st Contact Info) Description 08/13/2024 Abstract [facility] OB [address] [place] [address] Benji Leung, DO [address] [place] Land, [facility]11 Social History Tobacco Use Types Packs/Day Years [...] on filedocumented in this encounter Care Teams Technical Professional Relationship Specialty Start Date End Date Jenna Hanley NP Primary Care Provider Family Medicine 01/11/23 documented as of this encounter
--- OUTSIDE RECORDS SUMMARY | 2024-12-08 18:42 | XMS_ITS | Encounter Summary ---
Author Organization [facility] Address [address] [place] [address] Care Team Providers Care Train Clerk Name Role Phone Jenna Hanley SPOOLER OPERATOR AUTOMATIC Unavailable Encounter Details Date Type Department Care Team (Late st Contact Info) Description 06/30/2024 Abstract [facility] OB [address] [place] [address] Benji Leung, DO [address] [place] Land, [facility]11 Social History Tobacco Use Types [...] on filedocumented in this encounter Care Teams Train Clerk Relationship Specialty Start Date End Date Jenna Hanley NP Primary Care Provider Family Medicine 01/11/23 documented as of this encounter
--- OUTSIDE RECORDS SUMMARY | 2024-12-08 18:42 | XMS_ITS | Encounter Summary ---
Author Organization [facility] Address [address] [place] [address] Care Team Providers Care Electrical Tech Name Role Phone Jenna Hanley HIDE PASTER Unavailable Encounter Details Date Type Department Care Team (Late st Contact Info) Description 11/26/2024 Bamboo flowsheet [facility] OB [address] [place] [phone] Benji Leung, DO [address] [place] [address] Social History Tobacco Use Types Packs/Day Years [...] on filedocumented in this encounter Care Teams Electrical Tech Relationship Specialty Start Date End Date Jenna Hanley NP Primary Care Provider Family Medicine 01/11/23 documented as of this encounter
--- OUTSIDE RECORDS SUMMARY | 2024-12-08 18:42 | XMS_ITS | Encounter Summary ---
Author Organization [facility] Address [address] [place] [address] Care Team Providers Care Equipment Worker Name Role Phone Jenna Hanley SHIFT SUPERINTENDENT CAUSTIC CRESYLATE Unavailable [phone] Encounter Details Date Type Department Care Team (Late st Contact Info) Description 06/03/2024 Abstract [facility] OB [address] [place] [address] Benji Leung, DO [address] [place], [facility]11 Social History Tobacco Use Types [...] on filedocumented in this encounter Care Teams Equipment Worker Relationship Specialty Start Date End Date Jenna Hanley NP Primary Care Provider Family Medicine 01/11/23 documented as of this encounter
--- OUTSIDE RECORDS SUMMARY | 2024-12-08 18:42 | XMS_ITS | Encounter Summary ---
Author Organization [facility] Address [address] [place] [address] Care Team Providers Care Accounts Administrator Name Role Phone Jenna Hanley IRONWORKER Unavailable Encounter Details Date Type Department Care Team (Late st Contact Info) Description 06/18/2024 Abstract [facility] OB [address] [place] [address] Benji Leung, DO [address] [place], [facility]11 Social History Tobacco Use Types Packs/Day Years [...] on filedocumented in this encounter Care Teams Accounts Administrator Relationship Specialty Start Date End Date Jenna Hanley NP Primary Care Provider Family Medicine 01/11/23 documented as of this encounter
--- OUTSIDE RECORDS SUMMARY | 2024-12-08 18:42 | XMS_ITS | Clinical Summary ---
Author Organization [facility] Address [address] [place] [address] Care Team Providers Care Butter Maker Name Role Phone Jenna Hanley PRODUCTION LINE MECHANIC Unavailable [phone] Allergies No known active allergies Medications azaTHIOprine [...] 12.5 MG tabletIndications: Nausea and vomiting during ([facility]) Take 1 tablet (12.5 mg) by mouth every 6 (six) hours if needed for nausea or vomiting for up to 30 doses Take 1 tablet by mouth every 6 hours as needed for nausea. 30 tablet 2 04/23/20 24 Active metoclopramide (Reglan) 10 MG tabletIndications: Nausea and vomiting during ([facility]) Take 1 tablet (10 mg) by mouth in the morning and 1 tablet (10 mg) at noon and 1 tablet (10 mg) in the evening. Take before meals. Take 1 tablet by mouth 30 minutes prior to meals 3 times daily as needed for nausea.. 90 tablet 3 05/15/20 24 Active promethazine (Phenergan) 12.5 MG tabletIndications: Nausea and vomiting during ([facility]) Take 1 tablet (12.5 mg) by [...] vomiting 20 tablet 3 07/25/19 25 Active Active Problems Problem Noted Date Diagnosed Date HSV (herpes simplex virus) infection 12/22/2022 Estimated Date of Delivery Comme nts Yes 12/09/2024 Based on Ultraso und Encounters Date Type Department Care Team Description 12/03/2024 3:30 PM EDT Routine [facility] [address] [place] [address] Benji Leung, Third trimester ([facility]); 39 weeks gestation of ([facility]) 12/03/2024 Bamboo flowsheet [facility] [address] [place] [address] Benji Leung DO 11/26/2024 1:30 PM EDT Routine [facility] [address] [place] [address] Benji Leung, Third trimester ([facility]); 38 weeks gestation of ([facility]) 11/26/2024 Bamboo flowsheet [facility] [address] [place] [address] Benji Leung DO 11/19/2024 2:30 PM EDT Routine [facility] [address] [place] [address] Benji Leung, Third trimester ([facility]); 37 weeks gestation of ([facility]) 11/19/2024 Bamboo flowsheet [facility] [address] [place] [address] Benji Leung DO 11/12/2024 3:20 PM EDT Routine [facility] [address] [place] [address] [place] [address] Susan Montano PA Third trimester ([facility]) 11/12/2024 Bamboo flowsheet [facility] [address] [place] [address] Susan Montano PA 10/29/2024 1:30 PM EDT Routine [facility] [address] [place] [address] [place] [address] Benji Leung, Third trimester ([facility]); 34 weeks gestation of ([facility]) 10/29/2024 Bamboo flowsheet [facility] [address] [place] [address] [place] [address] Benji Leung, 10/16/2024 3:40 PM EDT Routine [facility] [address] [place] [address] [place] [address] Susan Montano PA Third trimester ([facility]); 32 weeks gestation of ([facility]); Low-lying placenta ([facility]) 10/16/2024 3:00 PM EDT Ancillary Procedure [facility] [address] [place] [address] size inconsistent with dates ([facility]) 10/08/2024 Abstract [facility] [address] [place] [address] Benji Leung DO 09/30/2024 9:50 AM EDT Routine [facility] [address] [place] [address] Benji Leung, Third trimester ([facility]); 30 weeks gestation of ([facility]); size inconsistent with dates ([facility]); HSV (herpes simplex virus) infection 09/30/2024 Bamboo flowsheet [facility] [address] [place] [address] Benji Leung, 09/24/2024 Telephone [facility] [address] [place] [address] Benji Leung, 09/24/2024 Clinisync Result Encounter [facility] External Department Unsolicited Benji Leung, 09/10/2024 10:30 AM EDT Routine [facility] [address] [place] [address] Lakshmi Cruz, STEVE Second trimester ([facility]); 27 weeks gestation of ([facility]); Low-lying placenta ([facility]) 09/10/2024 Bamboo flowsheet [facility] [address] [place] [address] Lakshmi Cruz NP 09/09/2024 Results Follow-Up [facility] [address] [place] [address] Anisa Parker LPN from Last 3 Months Family History Medical [...] Pressure 130/84 12/03/2024 3:44 PM EDT Pulse 103 04/08/2024 6:25 PM EST Temperature 36.8 C (98.2 F) 04/08/2024 6:25 PM EST Respiratory Rate - - Oxygen Saturation 98% 04/08/2024 6:25 PM EST Inhaled Oxygen Concentration - - Weight 95.1 kg (209 lb 12 oz) 12/03/2024 3:44 PM EDT Height 177.8 cm (5' 10 ) 02/11/2024 10:00 AM EDT Body Mass Index 30.1 02/11/2024 10:00 AM EDT Plan of Treatment Not on file Procedures Procedure Name Priority Date/Time Associated Diagnosis Comments POCT URINALYSIS DIPSTICK Routine 12/03/2024 3:50 PM EDT Third trimester ([facility]) POCT URINALYSIS DIPSTICK Routine 11/26/2024 1:54 PM EDT Third trimester ([facility]) 38 weeks gestation of ([facility]) POCT URINALYSIS DIPSTICK Routine 11/19/2024 2:48 PM EDT Third trimester ([facility]) 37 weeks gestation of ([facility]) CULTURE, GROUP B STREP WITH SUSCEPTIBLITY Routine 11/12/2024 3:36 PM EDT Third trimester ([facility]) US OB FOLLOW UP TRANSABDOMINAL APPROACH Routine 10/16/2024 3:37 PM EDT size inconsistent with dates ([facility]) GLUCOSE 1 HOUR Routine 09/24/2024 12:30 PM EDT ALL CBC WITH AUTO DIFF Routine 12:30 PM EDT POCT URINALYSIS DIPSTICK Routine 09/10/2024 10:53 AM EDT Second trimester ([facility]) from Last 3 Months Results * (ABNORMAL) POCT urinalysis dipstick manually resulted (12/03/2024 3:50 PM EDT) Only the most recent of4 resultswithin the time period is included. Color, [...] - Positive Urine 12/03/2024 3:50 PM EDT us Benji Leung DO POINT OF CARE TEST ENTER/EDIT OR DERABLES Final Result * CULTURE, GROUP B STREP WITH SUSCEPTIBLITY (11/12/2024 3:36 PM EDT) Swab 11/12/2024 3:36 PM EDT us Susan RAZO LAB BLOOD ORDERABLES Final Resul t EXTERNAL LAB * US OB follow up transabdominal approach [...] II, MD, PHD at 17-Oct-2024 11:53:40 AM [facility] Procedure Note Sarah Corea MD - [...] signed by SARAH COREA II, MD, PHD [id number] 11:53:40 AM [facility] us Benji Madhu DO IMG OB US PROCEDURES Final Resul t * GLUCOSE 1 HOUR (09/24/2024 12:30 PM EDT) Pathologist [facility] GLUCOSE 1 HOUR 85 <130 mg/dL [facility] 09/24/2024 12:3 0 PM EDT 09/24/2024 12:32 PM EDT Narrative [facility] - 09/24/2024 1:13 PM EDT us Benji Madhu DO LAB BLOOD ORDERABLES Final Resul t [facility] * (ABNORMAL) ALL CBC WITH AUTO DIFF (09/24/2024 12:30 PM EDT) Pathologist [facility] TB WBC 9.6 4.0 - 11.0 10 3/uL [facility] RBC 3.82(L) 4.20 - 5.40 10 6/uL [facility] HGB 11.7(L) 12.0 - 16.0 g/dL [facility] TB HCT 34.9(L) 36.0 - 48.0 % [facility] MCV 91.4 81.0 - 99.0 fL TBH TBH MCH 30.6 26.7 - 34.0 pg TBH TBH MCHC 33.5 29.9 - 35.2 g/dL TB [facility] RDW 12.3 11.0 - 15.0 % [...] Narrative [facility] - 09/24/2024 12:41 PM EDT Benji Leung DO [facility] Final Result [facility] from Last 3 Months Insurance [employer] Care Teams Butter Maker Relationship Specialty Start Date End Date Jenna Hanley NP Primary Care Provider Family Medicine 01/11/23
--- OUTSIDE RECORDS SUMMARY | 2024-12-08 18:42 | XMS_ITS | Encounter Summary ---
Author Organization [facility] Address [address] [place] [address] Care Team Providers Care Satellite Installation Technician Name Role Phone Jenna Hanley DELI BAKERY CLERK Unavailable Encounter Details Date Type Department Care Team (Late st Contact Info) Description 05/23/2024 Abstract [facility] [address] [place] [address] Benji Leung, DO [address] [facility] [address] [place], [facility]11 Social [...] on filedocumented in this encounter Care Teams Satellite Installation Technician Relationship Specialty Start Date End Date Jenna Hanley NP Primary Care Provider Family Medicine 01/11/23 documented as of this encounter
--- OUTSIDE RECORDS SUMMARY | 2024-12-08 18:42 | XMS_ITS | Encounter Summary ---
Author Organization [facility] Address [address] [place] [address] Care Team Providers Care Installment Loan Collector Name Role Phone Jenna Hanley BILLING DEPARTMENT SUPERVISOR Unavailable Encounter Details Date Type Department Care Team (Late st Contact Info) Description 06/18/2024 Abstract [facility] [address] [place] [address] Benji Leung, DO [address] [facility] [place], [facility]11 Social History Tobacco Use Types [...] on filedocumented in this encounter Care Teams Installment Loan Collector Relationship Specialty Start Date End Date Jenna Hanley NP Primary Care Provider Family Medicine 01/11/23 documented as of this encounter
--- OUTSIDE RECORDS SUMMARY | 2024-12-08 18:42 | XMS_ITS | Encounter Summary ---
Author Organization [facility] Address [address] [place] [address] Care Team Providers Care Terrazzo Finisher Name Role Phone Jenna Hanley BONDING MOLDER Unavailable Encounter Details Date Type Department Care Team (Late st Contact Info) Description 10/08/2024 Abstract [facility] [address] [address] Benji Leung, DO [address] [facility] [address] [place], [facility]11 Social History Tobacco Use Types Packs/Day Years [...] on filedocumented in this encounter Care Teams Terrazzo Finisher Relationship Specialty Start Date End Date Jenna Hanley NP Primary Care Provider Family Medicine 01/11/23 documented as of this encounter
--- OUTSIDE RECORDS SUMMARY | 2024-12-08 18:42 | XMS_ITS | Encounter Summary ---
Author Organization [facility] Address [address] [place] [address] Care Team Providers Care Certified Master Safe Technician Name Role Phone Jenna Hanley MILLER SUPERVISOR Unavailable [phone] Encounter Details Date Type Department Care Team (Late st Contact Info) Description 01/28/2024 Orders Only [facility] [address] [place] [phone] Leighton Soriano DO [address] [place] [address] Acute traumatic internal derangement of right knee, [...] Primary documented in this encounter Care Teams Certified Master Safe Technician Relationship Specialty Start Date End Date Jenna Hanley NP Primary Care Provider Family Medicine 01/11/23 documented as of this encounter
--- OUTSIDE RECORDS SUMMARY | 2024-12-08 18:42 | XMS_ITS | Encounter Summary ---
Author Organization [facility] Address [address] [place] [address] Care Team Providers Care Pick Out Hand Name Role Phone Jenna Hanley SPECIAL EDUCATION ITINERANT TEACHER Unavailable Encounter Details Date Type Department Care Team (Late st Contact Info) Description 06/11/2024 Abstract [facility] [address] [place] [address] Benji Leung, DO [address] [facility] [place], [facility]11 Social History Tobacco Use Types Packs/Day [...] on filedocumented in this encounter Care Teams Pick Out Hand Relationship Specialty Start Date End Date Jenna Hanley NP Primary Care Provider Family Medicine 01/11/23 documented as of this encounter
--- OUTSIDE RECORDS SUMMARY | 2024-12-08 18:42 | XMS_ITS | Encounter Summary ---
Author Organization [facility] Address [address] [place] [address] Care Team Providers Care Personal Development Coach Name Role Phone Jenna Hanley HAT LINING BLOCKER Unavailable [phone] Encounter Details Date Type Department Care Team (Late st Contact Info) Description 07/28/2024 Orders Only [facility] [address] [place] [phone] Amber Vines MA Social History Tobacco Use [...] AM EST) Swab Cervical swab / Unknown Susan RAZO LAB CYTOLOGY ORDERABLES Final Re sult EXTERNAL LAB documented in this encounter Visit Diagnoses Not on filedocumented in this encounter Care Teams Personal Development Coach Relationship Specialty Start Date End Date Jenna Hanley NP Primary Care Provider Family Medicine 01/11/23 documented as of this encounter
--- OUTSIDE RECORDS SUMMARY | 2024-12-08 18:42 | XMS_ITS | Encounter Summary ---
Author Organization [facility] Address [address] [place] [address] Care Team Providers Care Systems Programmer Analyst Name Role Phone Jenna Hanley [employer] INTERMODAL TRUCK DRIVER Unavailable Encounter Details Date Type Department Care Team (Late st Contact Info) Description 02/01/2024 Abstract [facility] [address] [place] [address] Leighton Soriano DO [address] [place] [address] Social History Tobacco Use Types Packs/Day Years [...] on filedocumented in this encounter Care Teams Systems Programmer Analyst Relationship Specialty Start Date End Date Jenna Hanley NP Primary Care Provider Family Medicine 01/11/23 documented as of this encounter
--- OUTSIDE RECORDS SUMMARY | 2024-12-08 18:42 | XMS_ITS | Encounter Summary ---
Author Organization [facility] Address [address] [place] [address] Care Team Providers Care Folder Tier Name Role Phone Jenna Hanley PARTICIPANT ADMINISTRATOR Unavailable Encounter Details Date Type Department Care Team (Late st Contact Info) Description 06/11/2024 Abstract [facility] [address] [place] [address] Benji Leung, DO [address] [facility] [address] [place], [id number] Social History Tobacco Use Types Packs/Day Years [...] on filedocumented in this encounter Care Teams Folder Tier Relationship Specialty Start Date End Date Jenna Hanley NP Primary Care Provider Family Medicine 01/11/23 documented as of this encounter
--- OUTSIDE RECORDS SUMMARY | 2024-12-08 18:42 | XMS_ITS | Encounter Summary ---
Author Organization [facility] Address [address] [place] [address] Care Team Providers Care Performance Consultant Name Role Phone Jenna Hanley MAILING JOGGER Unavailable Encounter Details Date Type Department Care Team (Late st Contact Info) Description 06/24/2024 Abstract [facility] [address] [address] Benji Leung, DO [address] [facility] [address] [place], [facility]11 Social History Tobacco Use Types [...] on filedocumented in this encounter Care Teams Performance Consultant Relationship Specialty Start Date End Date Jenna Hanley NP Primary Care Provider Family Medicine 01/11/23 documented as of this encounter
--- OUTSIDE RECORDS SUMMARY | 2024-12-08 18:42 | XMS_ITS | Encounter Summary ---
Author Organization [facility] Address [address] [place] [address] Care Team Providers Care Sales Professional Bilingual Name Role Phone Jenna Hanley STOPBOARD ASSEMBLER Unavailable [phone] Encounter Details Date Type Department Care Team (Late st Contact Info) Description 06/11/2024 Abstract [facility] [address] [place] [address] Benji Leung, DO [address] [facility] [address] [place], [id number] Social History Tobacco Use Types Packs/Day Years [...] on filedocumented in this encounter Care Teams Sales Professional Bilingual Relationship Specialty Start Date End Date Jenna Hanley NP Primary Care Provider Family Medicine 01/11/23 documented as of this encounter
--- OUTSIDE RECORDS SUMMARY | 2024-12-08 18:42 | XMS_ITS | Clinical Summary ---
Author Organization [employer] [facility] Address [id number] [address] [place] [address] Care Team Providers Care Gum Machine Operator Name Role Phone Pcp, Not In System [...] on file Insurance [employer] MEDICAID Care Teams Gum Machine Operator Relationship Specialty Start Date End Date Pcp, Not In System FESTUS Orozco [address] PCP - General Family Medicine 06/02/22
--- OUTSIDE RECORDS SUMMARY | 2024-12-08 18:42 | XMS_ITS | Encounter Summary ---
Author Organization [facility] Address [address] [place] [address] Care Team Providers Care Dirt Bike Mechanic Name Role Phone Jenna Hanley PROVIDER CONTRACTING CONSULTANT Unavailable Encounter Details Date Type Department Care Team (Late st Contact Info) Description 06/30/[address] [facility] [address] [place] [address] Benji Leung, DO [address] [facility] [address] [place], [facility]11 Social History Tobacco Use Types Packs/Day Years [...] on filedocumented in this encounter Care Teams Dirt Bike Mechanic Relationship Specialty Start Date End Date Jenna Hanley NP Primary Care Provider Family Medicine 01/11/23 documented as of this encounter
--- OUTSIDE RECORDS SUMMARY | 2024-12-08 18:42 | XMS_ITS | Patient Health Record ---
Author Organization [facility] es Address [address] [place] [address] Care Team Providers Care Engineering Librarian Name Role Phone Nicole Lopez Primary Care Provider Betty Steele Unavailable [phone] Allergies No Known Allergies Reason For Referral No Information Medications Medication SIG (Take, Route, Frequency, Duration) Notes Start Date End Date Status Escitalopram Oxalate 20 MG 1 tablet Oral ly Once a day; Duration: 30 days 07/26/2022 Active Valtrex 500 MG 1 tablet Orally Once a day Active Ibuprofen 800 MG 1 tablet with food o r milk as needed Orally Three times a day 07/04/2022 Active azaTHIOprine 100 MG TAKE 1/2 (ONE-HALF) OF A TABLET BY MOUTH EVERY MORNING, and ONE TABLET AT BEDTIME, titrate up DIRECTED Diagnosis Unavailable Oral; Duration: 30 Active Drospirenone-Ethinyl Estradiol 3-0.03 MG TAKE 1 TABLET BY MOUTH EVERY DAY Diagnosis Unavailable Oral; Duration: 28 Active ALPRAZolam 0.25 MG 1 tablet as needed f or anxiety Orally Twice a day F41.1 07/26/2022 Active Social History Tobacco Use: Social History Observation Description Date Details (start date - stop date) Never Smoker NA - NA Tobacco Screen: Question Answer Notes Are you a: never smoker Problems Problem Type SNOMED Code ICD Code Onset Dates Problem Status W/U Status Risk Notes Problem Generalized anxiety disorder (46262535) Generalized anxiety disorder (F41.1) Active confirmed Plan Of Treatment No Information Insurance Providers Payer Name Payer Address Payer Phone Subscriber Number Group Number Insured Name Patient Relationship to Insured Coverage Start Date Coverage End Date [facility] [address] [place] [address] [id number] HEENA WANG Self - patient is the insured 3 BH Wrap [employer] [place] [address] [place] [address] [id number] HEENA WANG Self - patient is the insured 3 zDENTAL DQ PARAMOUNT -termed 22 [address] [place] [address] [id number] HEENA WANG Self - patient is the insured 2 3 zDental MEDICAID CFC after [place]AMOUNT -termed 22 [address] [place] [address] [id number] HEENA WANG Self - patient is the insured 2 3 zPARAMOUN T ADVANTAGE -termed 22 [address] [place] [address] [id number] HEENA WANG Self - patient is the insured 2 3 zMEDICAID CFC after PARAMOUNT -termed 22 [address] [place] [address] [id number] HEENA WANG Self - patient is the insured 2 3 Dental [place] DQ Terminate d 24 [address] [facility] [place] [address] [id number] HEENA WANG Self - patient is the insured 3 [facility] [address] [place] [address] [id number] HEENA WANG Self - patient is the insured 3 [facility] [address] [place] [address] [id number] HEENA WANG Self - patient is the insured 1 1 Medical (General) History Medical History History ICD Code MOGAD; 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
--- OUTSIDE RECORDS SUMMARY | 2024-12-08 18:46 | XMS_ITS | CCD ---
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 Name Role Phone Morro Hauser Unavailable MORRO HAUSER Primary Care Physician [phone] DO Ravi Zhang Admit Provider WINNIE Hauser Primary Care Provider DO Kt Pearson Other Provider DO Isaías Pan Other Provider MD Iman Gomez Other Provider MD Melo Diana Attending Provider MD Leighton Vitale Other Provider DR JOSÉ MIGUEL LAM V Consulting Unavailable MORRO HAUSER Primary Care Unavailable DR BENJI LEUNG Attending Unavailable DR BENJI LEUNG Admitting Unavailable DR BENJI LEUNG Consulting Unavailable WINNIE Hauser Primary Care Provider WINNIE Greenberg Emergency Provider Racheal Greenberg Unavailable Rupert Soriano Attending Unavailable Morro Hauser MD Unavailable [phone] Percy Mendoza Attending Unavailable Percy Mendoza Admitting Unavailable Morro Hauser NP Unavailable Morro Hauser NP Unavailable BENJI LEUNG Attending Unavailable SUSAN MONTANO Attending Unavailable BENJI LEUNG Attending Unavailable BENJI LEUNG Referring Unavailable JESSY CRUZ Attending Unavailable BENJI LEUNG Attending Unavailable SAMPSON AYALA Attending Unavailable BENJI LEUNG Referring Unavailable SUSAN MONTANO Attending Unavailable MADHU, BENJI Attending Unavailable SUSAN MONTANO Attending Unavailable MADHU, BENJI Attending Unavailable MADHU, BENJI Attending Unavailable MADHU, BENJI Attending Unavailable SAMRA IRVIN Attending Unavailable Medications [...] MG tablet Indications: Nausea and vomiting during (HHS-HCC) Take 1 tablet (10 mg) by mouth [...] Start: 04-29-2024 take 1 tablet by arcelia every eight hours as needed for nausea [...] MG tablet Indications: Nausea and vomiting during ([facility]) Take 1 tablet (12.5 mg) [...] 2023 11:16am take 2 tablets by mo [facility] every eight hours valACYclovir HCl 500 MG 2 tablets Orally three times a day Active Completed/Discontinued Medications Medication Drug Class(es) Dates Sig (Normalized) Sig (Original) acetaminophen 325 mg / HYDROcodone bitartrate 5 mg oral tablet (2 sources) Opioid Agonist Start: 01-28-2024 End: 02-11-2024 take 1-2 tablets by mouth every four hours for pain HYDROcodone-acetam inophen ([place]) 5-325 MG tablet Indications: Acute traumatic internal [...] 07, 2023 12:00am take 1 tablet by [facility] once daily Drospirenone-Ethinyl Estradiol 3-0.03 MG TAKE [...] June 02, 2022 12:00am polyethylene glycol 3350 13268 mg powder for oral solution (2 sources) [...] 06-09-2022 Episodic Other and delivery including normal (20 sources) ; Translations: [Encounter for supervision of [...] [34 weeks gestation of ] 10-29-2024 Episodic Residual codes; unclassified (2 sources) Gestation period, 37 weeks; Translations: [37 weeks gestation of ] 11-19-2024 Episodic Residual codes; unclassified (2 sources) Gestation period, 38 weeks; Translations: [38 weeks gestation of ] 11-26-2024 Episodic Residual codes; unclassified (2 sources) Gestation period, 39 weeks; Translations: [39 weeks gestation of ] 12-03-2024 Episodic Sprains and strains (2 sources) Sprain [...] Range Facility Urinalysis macro (dipstick) panel (U)on 12-03-2024 Bilirubin, UA Negative Negative - 4(70) +++ mg/dL [facility] Blood, UA Positive Negative - 50 Timmy/mcL [facility] Comment on above: small Clarity, UA Clear [facility] Color, UA Yellow [facility] Glucose, UA Negative Negative - 2000(110) ++++ mg/dL [facility] Interpretation and review of laboratory results Abnormal [facility] Ketones, UA Positive Negative - 160(16) ++++ mg/dL [facility] Comment on above: Moderate Leukocytes, UA Negative Negative - 500+++ Hilda/mcL [facility] Nitrite, UA Negative Negative - Positive [facility] pH, UA 6 5 - 9 [facility] Protein, UA Trace Negative - 2000(20) ++++ mg/dL [facility] Spec Grav, UA 1.03 1 - 1.03 [facility] Urobilinogen, UA 0.2 0.2 - 12 mg/dL [facility] Urinalysis macro (dipstick) panel (U)on 11-26-2024 Bilirubin, UA Negative Negative - 4(70) +++ mg/dL [facility] Blood, UA Negative Negative - 50 Timmy/mcL [facility] Clarity, UA Clear [facility] Color, UA Yellow [facility] Glucose, UA Negative Negative - 1999(110) ++++ mg/dL [facility] Interpretation and review of laboratory results Normal [facility] Ketones, UA Negative Negative - 160(16) ++++ mg/dL [facility] Leukocytes, UA Negative Negative - 500+++ Hilda/mcL [facility] Nitrite, UA Negative Negative - Positive [facility] pH, UA 5.5 5 - 9 [facility] Protein, UA Negative Negative - 1999(20) ++++ mg/dL [facility] Spec Grav, UA 1.02 1 - 1.03 [facility] Urobilinogen, UA 1.0 0.2 - 12 mg/dL [facility] Urinalysis macro (dipstick) panel (U)on 11-19-2024 Bilirubin, UA Negative Negative - 4(70) +++ mg/dL [facility] Blood, UA Negative Negative - 50 Timmy/mcL [facility] Clarity, UA Clear [facility] Color, UA Yellow [facility] Glucose, UA Negative Negative - 1999(110) ++++ mg/dL [facility] Interpretation and review of laboratory results Normal [facility] Ketones, UA Negative Negative - 160(16) ++++ mg/dL [facility] Leukocytes, UA Negative Negative - 500+++ Hilda/mcL [facility] Nitrite, UA Negative Negative - Positive [facility] pH, UA 5.5 5 - 9 [facility] Protein, UA Negative Negative - 1999(20) ++++ mg/dL [facility] Spec Grav, UA 1.02 1 - 1.03 [facility] Urobilinogen, UA 1.0 0.2 - 12 mg/dL [facility] US OB FOLLOW UP TRANSABDOMIN AL APPROACHon [...] II, MD, PHD at 17-Oct-2024 11:53:40 AM [facility] Normal Not Available Comment on above: Order Comment: US OB SCAN FOR GROWTH Estimated Date of Delivery: 12/09/24 Gestational Age as of 09/30/2024: 30w0d ALL CBC WITH AUTO DIFFon BASOPHILS ABSOLUTE AUTO 0.1 [facility] Basophils/100 WBC (Bld) 0.7 % 0.2 - 2.0 % [facility] Eosinophils/100 WBC (Bld) 0.7 % Low 0.9 - 7.0 % [facility] Erythrocyte distribution width (RBC) [Ratio] 12.3 % 11.0 - 15.0 % [facility] Hematocrit (Bld) [Volume fraction] 34.9 % Low 36.0 - 48.0 % [facility] Hemoglobin (Bld) [Mass/Vol] 11.7 g/dL Low 12.0 - 16.0 g/dL [facility] IMMATURE GRANULOCYTES ABS AUTO 0.16 High [facility] Immature granulocytes/100 WBC (Bld) 1.7 % High 0.0 - 0.5 % [facility] Interpretation and review of laboratory results Abnormal [facility] LYMPHOCYTES ABSOLUTE AUTO 1.7 [facility] Lymphocytes/100 WBC (Bld) 17.5 % Low 20.5 - 60.0 % [facility] MCH (RBC) [Entitic mass] 30.6 pg 26.7 - 34.0 pg [facility] MCHC (RBC) [Mass/Vol] 33.5 g/dL 29.9 - 35.2 g/dL [facility] MCV (RBC) [Entitic vol] 91.4 fL 81.0 - 99.0 fL [facility] MONOCYTES ABSOLUTE AUTO 0.8 [facility] Monocytes/100 WBC (Bld) 8.4 % 1.7 - 12.0 % [facility] NEUTROPHILS ABSOLUTE AUTO 6.8 High [facility] Neutrophils/100 WBC (Bld) 71 % 43.0 - 75.0 % [facility] Platelet mean volume (Bld) [Entitic vol] 11.3 fL 9.5 - 13.5 fL [facility] TBH EO # 0.1 [facility] TB PLT 198 [facility] RBC 3.82 Low [facility] WBC 9.6 [facility] Urinalysis macro (dipstick) panel (U)on 09-10-2024 Bilirubin, UA Negative Negative - 4(70) +++ mg/dL [facility] Blood, UA Negative Negative - 50 Timmy/mcL [facility] Clarity, UA Clear [facility] Color, UA Yellow [facility] Glucose, UA Negative Negative - 1999(110) ++++ mg/dL [facility] Interpretation and review of laboratory results Normal [facility] Ketones, UA Negative Negative - 160(16) ++++ mg/dL [facility] Leukocytes, UA Negative Negative - 500+++ Hilda/mcL [facility] Nitrite, UA Negative Negative - Positive [facility] pH, UA 7 5 - 9 [facility] Protein, UA Negative Negative - 1999(20) ++++ mg/dL [facility] Spec Grav, UA 1.02 1 - 1.03 [facility] Urobilinogen, UA 2.0 0.2 - 12 mg/dL [facility] US OB LIMITED 1+ FETUSESon 0 09-01-2024 [...] II, MD, PHD at 01-Sep-2024 11:47:56 PM [facility] Normal Not Available Comment on above: Order Comment: US OB PLACENTA W US OB TRANSVAGINAL Estimated Date of Delivery: 12/09/24 Gestational Age as of 07/31/2024: 21w2d Urinalysis macro (dipstick) panel (U)on 08-13-2024 Bilirubin, UA Negative Negative - 4(70) +++ mg/dL [facility] Blood, UA Negative Negative - 50 Timmy/mcL [facility] Clarity, UA Clear [facility] Color, UA Yellow [facility] Glucose, UA Negative Negative - 2000(110) ++++ mg/dL [facility] Interpretation and review of laboratory results Normal [facility] Ketones, UA Negative Negative - 160(16) ++++ mg/dL [facility] Leukocytes, UA Negative Negative - 500+++ Hilda/mcL [facility] Nitrite, UA Negative Negative - Positive [facility] pH, UA 8.5 5 - 9 [facility] Protein, UA Negative Negative - 2000(20) ++++ mg/dL [facility] Spec Grav, UA 1.015 1 - 1.03 [facility] Urobilinogen, UA 2.0 0.2 - 12 mg/dL [facility] No Panel InformationOrdered By: Radiologist Radiology on 07-23-2024 [facility] Work Phone: No Panel Informationon 07-23 Radiology Study observation (narrative) [facility] US OB ANATOMYon 07-23-[address] [address] Ultrasound Report Signed Patient: HEENA WANG MR#: [id number] : 2005 Acct:[id number] Age/Sex: 19 / F ADM Date: 07/23/24 Loc: US Attending Dr: Susan Montano Ordering Physician: Susan Montano Date of Service: 07/23/24 Procedure(s): US OB anatomy Accession Number(s): [id number] cc: Susan Montano; Morro Hauser NP [address] [address] Patient Name: HEENA WANG MRN: [facility]:[id number] date: 2005 Sex: F Assigned Patient Location: US Current Patient Location: LAB Accession/Order Number: [id number] Exam Date: 07/23/2024 16:03 Report Date: 07/23/2024 [...] You Jr., D.O.07/23/2024 4:13 PM Dictation Location: [place] [address] Electronically authenticated by: [id number] Y Date: 07/23/2024 16:13 Dictated By: Ranulfo You M.D. Signed By: 07/23/24 1616 DD/ 161 TD/TT: Rate Engineer: [facility] Radiology, Radiologi MD levi - 07/23/[address] [address] Ultrasound Report Signed Patient: HEENA WANG MR#: [id number] : 2005 Acct:[id number] Age/Sex: 19 / F ADM Date: 07/23/24 Loc: US Attending Dr: Susan Montano Ordering Physician: Susan Montano Date of Service: 07/23/24 Procedure(s): US OB anatomy Accession Number(s): [id number] cc: Susan Montano; Morro Hauser NP The [place] [address] Patient Name: HEENA WANG MRN: [id number] date: 2005 Sex: F Assigned Patient Location: US Current Patient Location: LAB Accession/Order Number: [id number] Exam Date: 07/23/2024 16:03 Report Date: 07/23/2024 [...] without funneling. Impression dictated by: Ranulfo You Jr.Emilee07/23/2024 4:13 PM Dictation Location: [place] [address] Electronically authenticated by: [id number] Y Date: 07/23/2024 16:13 Dictated By: Ranulfo You M.D. Signed By: 07/23/24 161 DD/ 161 TD/TT: Rate Engineer: [facility] [place] [address] Ultrasound Report Signed Patient: HEENA WANG MR#: [id number] : 2005 Acct:[id number] Age/Sex: 19 / F ADM Date: 07/23/24 Loc: US Attending Dr: Susan Montano Ordering Physician: Susan Mnotano Date of Service: 07/23/24 Procedure(s): US OB cervical length Accession Number(s): [id number] cc: Susan Montano; Morro Hauser NP [place] [id number] Patient Name: HEENA WANG MRN: [id number] date: 2005 Sex: F Assigned Patient Location: US Current Patient Location: LAB Accession/Order Number: [id number] Exam Date: 07/23/2024 16:03 Report Date: 07/23/2024 [...] You Jr., D.O.07/23/2024 4:13 PM Dictation Location: [place] [address] Electronically authenticated by: [id number] Y Date: 07/23/2024 16:13 Dictated By: Ranulfo You M.D. Signed By: 07/23/24 1616 DD/ 161 TD/TT: Rate Engineer: [facility] RadiologyErikoggenna sims MD - 07/23/2024 [place] [address] Ultrasound Report Signed Patient: HEENA WANG MR#: [id number] : 2005 Acct:[id number] Age/Sex: 19 / F ADM Date: 07/23/24 Loc: US Attending Dr: Susan Montano Ordering Physician: Susan Montano Date of Service: 07/23/24 Procedure(s): US OB cervical length Accession Number(s): [id number] cc: Susan Montano; Morro Hauser NP The [address] [address] Patient Name: HEENA WANG MRN: [facility]:[id number] date: 2005 Sex: F Assigned Patient Location: US Current Patient Location: LAB Accession/Order Number: [id number] Exam Date: 07/23/2024 16:03 Report Date: 07/23/2024 [...] You Jr., D.O.07/23/2024 4:13 PM Dictation Location: [place] [address] Electronically authenticated by: [id number] Y Date: 07/23/2024 16:13 Dictated By: Ranulfo You M.D. Signed By: 07/23/24 1616 DD/ 1613 TD/TT: Rate Engineer: [facility] IGP,APTIMA HPV,AGE GDLNon AGE GDLN ACOG TESTING Note . [facility] Comment on above: TESTS RESULT FLAG U NITS REF RANGE LAB Clinician Provided Cytology Information Source.............Cervix Other.............. No. of containers..01 ThinPrep Vial Age Algo ACOG Idania... -16 06 FLAG LEGEND: L-Low Normal,H-High Normal,LL-Alert Low,HH-Alert High <-Panic Low,>-Panic High,A-Abnormal,AA-Critical Abnormal Performed at: 01 =[address] [place] [address] Evelyn Arnold MD, IGP, RFX APTIMA HPV ASCU Note . [facility] Comment on above: TESTS RESULT FLAG UN ITS REF RANGE LAB DIAGNOSIS: 02 NEGATIVE FOR INTRAEPITHELIAL LESION OR MALIGNANCY. Specimen adequacy: 02 Satisfactory for evaluation. Endocervical and/or squamous metaplastic cells (endocervical component) are present. Performed by: Ernestina Espinosa, Partition Setter ([facility]) . 02 Note: Note 03 [...] <-Panic Low,>-Panic High,A-Abnormal,AA-Critical Abnormal Performed at: 02 [facility] [address] [address] [place] [address] Shad East MD, [address] [address] Evelyn Arnold MD, Performed at: = - [facility] [id number] Storm Door Maker: Evelyn Arnold MD, Phone: [phone] Performed at: [facility] [address] [address] [place], [place] [id number] Storm Door Maker: Shad East MD, Phone: [phone] SPATULA-ALONE CERVIX [facility] RECURRENT VAGINITIS (HTRX)on 07-17-2024 ATOPOBIUM VAGINAE 0 [facility] ATOPOBIUM VAGINAE Not detected [facility] BVAB 2,3 (BACTERIAL VAGINOSIS ASSOCIATED BACTERIA 2, 3); MOBILUNCUS SPP 0 [facility] BVAB 2,3 (BACTERIAL VAGINOSIS ASSOCIATED BACTERIA 2, 3); MOBILUNCUS SPP Not detected [facility] ISSAC ALBICANS, PARAPSILOSIS, TROPICALIS 0 [facility] ISSAC ALBICANS, PARAPSILOSIS, TROPICALIS Not detected [facility] ISSAC GLABRATA 0 [facility] ISSAC GLABRATA Not detected [facility] ISSAC KRUSEI 0 [facility] ISSAC KRUSEI Not detected [facility] CHLAMYDIA TRACHOMATIS 0 [facility] CHLAMYDIA TRACHOMATIS Not detected [facility] GARDNERELLA VAGINALIS 0 [facility] GARDNERELLA VAGINALIS Not detected [facility] Interpretation and review of laboratory results Abnormal [facility] MEGASPHAERA (TYPES 1, 2) 28.119 Abnormal [facility] MEGASPHAERA (TYPES 1, 2) Detected Abnormal [facility] MYCOPLASMA GENITALIUM 0 [facility] MYCOPLASMA GENITALIUM Not detected [facility] NEISSERIA GONORRHOEAE 0 [facility] NEISSERIA GONORRHOEAE Not detected [facility] TRICHOMONAS VAGINALIS 0 [facility] TRICHOMONAS VAGINALIS Not detected [facility] Urinalysis macro (dipstick) panel (U)on 07-16-2024 Bilirubin, UA Negative Negative - 4(70) +++ mg/dL [facility] Blood, UA Negative Negative - 50 Timmy/mcL [facility] Clarity, UA Clear [facility] Color, UA Yellow [facility] Glucose, UA Negative Negative - 1999(110) ++++ mg/dL [facility] Interpretation and review of laboratory results Abnormal [facility] Ketones, UA Positive Negative - 160(16) ++++ mg/dL [facility] Leukocytes, UA Negative Negative - 500+++ Hilda/mcL [facility] Nitrite, UA Negative Negative - Positive [facility] pH, UA 6.5 5 - 9 [facility] Protein, UA Negative Negative - 1999(20) ++++ mg/dL [facility] Spec Grav, UA 1.02 1 - 1.03 [facility] Urobilinogen, UA 1.0 0.2 - 12 mg/dL [facility] Urinalysis macro (dipstick) panel (U)on 06-17-2024 Bilirubin, UA Negative Negative - 4(70) +++ mg/dL [facility] Blood, UA Negative Negative - 50 Timmy/mcL [facility] Clarity, UA Clear [facility] Color, UA Yellow [facility] Glucose, UA Negative Negative - 1999(110) ++++ mg/dL [facility] Interpretation and review of laboratory results Abnormal [facility] Ketones, UA Positive Negative - 160(16) ++++ mg/dL [facility] Comment on above: 15 Leukocytes, UA Trace Negative - 500+++ Hilda/mcL [facility] Nitrite, UA Negative Negative - Positive [facility] pH, UA 8.5 5 - 9 [facility] Protein, UA Positive Negative - 1999(20) ++++ mg/dL [facility] Comment on above: 30 Spec Grav, UA 1.02 1 - 1.03 [facility] Urobilinogen, UA >=8.0 0.2 - 12 mg/dL [facility] BOX TESTon 06-04-2024 BOX TEST SENT OUT [facility] BOX1 [facility] BOX2 06/04/24 [facility] ( test) Ql (U)o n 05-20-2024 Interpretation and review of laboratory results Abnormal [facility] Preg Test, Ur Positive Negative [facility] Urine Cultureon 05-14-2024 Bacteria identified Cx Nom (U) 30,000 colonies/ml mixed bacterial skin contaminants 2 Days PERFORMED BY: [place] [address] PATHOLOGIST WIRELESS ENGINEER LIDIA ZHENG M.D. Normal The [facility] Comment on above: Performed By: #### C UU #### [address] Laboratory - Chemistry and C hemistry - challengeon 04-08-2024 Bilirubin Ql (U) 1+ Negative [facility] Glucose [Mass/Vol] Negative Negative [facility] Ketones Ql (U) Negative Negative [facility] pH (U) 7 [pH] 5.0 - 6.0 [facility] Specific gravity (U) [Rel density] 1.015 1.001 - 1.035 [facility] Laboratory - Hematology and Cell countson 04-08-2024 Hemoglobin Ql (U) + Negative [facility] Laboratory - Urinalysison Nitrite Ql (U) Negative Negative [facility] Protein Ql (U) 1+ Negative [facility] No Panel Informationon 04-08 Interpretation and review of laboratory results Abnormal [facility] LEUKOCYTES 1+ Negative [facility] UROBILINOGEN 2+ 0.2 - 1.0 [facility] ED Note-Physicianon 10-29-19 ED Note-Physician Basic Information Time Seen: Corinne VENTURA, Alejandra Mendez 10/28/2023 11:24 Chief Complaint c/o right knee [...] prescription medications Follow-up With When Contact Information Leighton Soriano In 3 days 10/31/2023 EDT [address] [place] [address] Business (1) Additional Instructions: MORRO HAUSER In 3 days [address] [place] [address]- [phone] Business (1) Additional Instructions: Patient Education Knee Sprain, Adult How to Use a Knee Immobilizer Radial Nerve Palsy Crutch Use, Adult, Poqz-rr-Iomy Attestation I performed a subst (more content not included)... Normal [facility] Comment on above: Result Comment: Elec tronically Signed By: Alejandra Sun PA-C\.br\Date and Time Signed: 10/28/23 16:45 EDT\.br\Electronically Co-Signed By: Rupert Soriano DO\.ben\Date and Time Co-Signed: 10/29/23 08:08 EDT Consent for Treatmenton Consent for Treatment [id number] Normal [facility] Discharge Instructionson Discharge Instructions [id number] Normal [facility] ED Clinical Summaryon 2023 ED Clinical Summary (Inserted Image. Judith ble to display) [place] [id number] ED Clinical Summary Person Information Name: HEENA WANG Jannet/[facility] Age: 18 Years : 2005 Sex: Female Language: Urdu PCP: MORRO HAUSER CNP Marital Status: Single [...] 10/28/2023 12:35:22 10/28/2023 12:35:22 10/28/2023 12:35:22 ADDRESS: [address] [place] [address] [place] [phone] PHYS DOC NOTES: MEDICAL INFORMATION: Prescriptions Given: PATIENT EDUCATION INFORMATION: Instructions: Knee Sprain, Adult; How to Use a Knee Immobilizer; Radial Nerve Palsy; Crutch Use, Adult, Raxd-rc-Uwix Follow up: With: Address: When: Leighton Soriano [address] [place] [address] Business (1) In 3 days 10/31/2023 With: Address: When: MORRO [address] [phone] Business (1) In 3 days DIAGNOSIS: 1:Strain of right knee Normal [facility] ED Patient Education Noteon 10-28-2023 ED [...] or lying down. General instructions ? Take nuby-xig-vvzmmvn and prescription medicines only as told by [...] provider. Document Revised: 08/14/2022 Document Reviewed: 03/26/2020 [employer] Patient Education ? 2022 [employer]. How to Use a Knee Immobilizer A [...] by your (more content not included)... Normal [facility] ED Patient Summaryon 024 ED Patient Summary (Inserted Image. Judith ble to display) [facility] [address] [place], [place] [address] Patient Discharge Instructions Person Information Name: HEENA WANG Age: 18 Years Arrival Date: 10/28/2023 11:07:53 Discharge Diagnosis: 1:Strain of right knee Primary Care Physician: MORRO HAUSER CNP Provider Information Primary Provider: Rupert Soriano DO Advanced Bird Sitter:None The exam and treatment you received in the Emergency Department were for an urgent problem and are not intended as complete care. It is important that you follow up with a doctor, nurse practitioner, or physician?s assistant press operator offset for ongoing care. If your symptoms become worse or you do not improve as expected and you are unable to reach your usual health care provider, you should return to the Emergency Department. We are available 24 hours a day. HEENA WANG has been given the following list of patient education materials, prescriptions and follow-up instructions: Follow-up Instructions: With: Address: When: Leighton Soriano [address] [place] [address] Business (1) In 3 days 10/31/2023 With: Address: When: MORRO HAUSER [address] [place] [id number] [phone] [facility] (1) In 3 days In the event that this physician does not participate in your insurance network, please consult with your insurance company to find a nearby participating provider. Patient Education Materials: Knee Sprain, Adult; How to Use a Knee Immobilizer; Radial Nerve Palsy; Crutch Use, Adult, Zyus-ah-Rpmk A MESSAGE TO ALL PATIENTS REGARDING OPIOIDS PRESCRIPTION OPIOIDS: WHAT YOU NEED TO KNOW Prescription opioids can be used to help relieve jfxhacdc-un-pcsogy pain and are often prescribed following a [...] If y (more content not included)... Normal [facility] XR Knee Complete 4+ Views Ri [...] mGy = na DAP = na Normal [facility] Quick Strepon 03-02-2023 S. pyogenes Org specific cx Ql (Throat) Negative [facility] Other Quick Strep [facility] Other US PELVISon 07-03-2022 US PELVIS EXAMINATION: [...] MIGUEL LAM Date: 2022-07-03 16:20 Normal [facility] Basophils Auto (Bld) [#/Vol] Ordered By: Melo Diana on 06-09-2022 Basophils (Bld) [#/Vol] 0.0 10*3/uL 0.0-0.2 [facility] Basophils/100 WBC Auto (Bld) Ordered By: Melo Diana on 06-09-2022 Basophils/100 WBC (Bld) 0.1 % . [facility] Creatinine and Glomerular fi ltration rate.predicted panel (S/P/Bld)Ordered By: Melo Diana on 06-09-2022 Creatinine [Mass/Vol] 0.61 mg/dL 0.44-1.03 [facility] Eosinophils Auto (Bld) [#/Vo l]Ordered By: Melo Diana on 06-09-2022 Eosinophils (Bld) [#/Vol] 0.0 10*3/uL 0.0-0.45 [facility] Eosinophils/100 WBC Auto (Bl d)Ordered By: Melo Diana on 06-09-2022 Eosinophils/100 WBC (Bld) 0.0 % . [facility] Erythrocyte distribution wid th Auto (RBC) [Ratio]Ordered By: Melo Diana on 06-09-2022 Erythrocyte distribution width (RBC) [Ratio] 13.3 % 11.9-15.3 [facility] Estimated glomerular filtrat ion rate (GFR) non- AmericanOrdered By: Melo Diana on 06-09-2022 GFR/1.73 sq M.predicted among non-blacks MDRD (S/P/Bld) [Vol rate/Area] > 60 mL/Min [facility] Hematocrit Auto (Bld) [Volum e fraction]Ordered By: Melo Diana on 06-09-2022 Hematocrit (Bld) [Volume fraction] 36.1 % 34.0-46.4 [facility] Hemoglobin [Mass/volume] in BloodOrdered By: Melo Diana on 06-09-2022 Hemoglobin (Bld) [Mass/Vol] 12.1 g/dL 11.8-15.4 [facility] Leukocytes [#/volume] correc gloria for nucleated erythrocytes in Blood by Automated counOrdered By: Melo Diana on 06-09-2022 WBC corrected for nucl RBC Auto (Bld) [#/Vol] 9.8 10*3/uL 3.8-11.6 [facility] Lymphocytes Auto (Bld) [#/Vo l]Ordered By: Melo Diana on 06-09-2022 Lymphocytes (Bld) [#/Vol] 1.6 10*3/uL 1.00-4.8 [facility] Lymphocytes/100 WBC Auto (Bl d)Ordered By: Melo Diana on 06-09-2022 Lymphocytes/100 WBC (Bld) 16.1 % . [facility] MCH Auto (RBC) [Entitic mass ]Ordered By: Melo Diana on 06-09-2022 MCH (RBC) [Entitic mass] 29.4 pg 24.7-34.3 [facility] MCHC Auto (RBC) [Mass/Vol]Or dered By: Melo Diana on 06-09-2022 MCHC (RBC) [Mass/Vol] 33.5 g/dL 32.0-35.0 [facility] MCV Auto (RBC) [Entitic vol] Ordered By: Melo Diana on 06-09-2022 MCV (RBC) [Entitic vol] 87.8 fL 80-100 [facility] Monocytes Auto (Bld) [#/Vol] Ordered By: Melo Diana on 06-09-2022 Monocytes (Bld) [#/Vol] 1.0 10*3/uL 0.0-0.8 [facility] Monocytes/100 WBC Auto (Bld) Ordered By: Melo Diana on 06-09-2022 Monocytes/100 WBC (Bld) 10.4 % . [facility] Neutrophils Auto (Bld) [#/Vo l]Ordered By: Melo Diana on 06-09-2022 Neutrophils (Bld) [#/Vol] 7.2 10*3/uL 1.8-7.7 [facility] Neutrophils/100 WBC Auto (Bl d)Ordered By: Melo Diana on 06-09-2022 Neutrophils/100 WBC (Bld) 73.4 % . [facility] No Panel InformationOrdered By: Melo Diana on 06-09-2022 Estimated GFR () > 60 mL/Min [facility] Comment on above: GFR estimated refere nce range: According to KDOQI guidelines, <60 ml/min/1.73m2 is sufficient to diagnose a patient with chronic kidney disease. Pharmacy Creatinine Clearance (Chem 181.95 [facility] Nucleated erythrocytes [Pres ence] in Blood by Automated countOrdered By: Melo Diana on 06-09-2022 Nucleated RBC Auto Ql (Bld) 0.1 /100{WBC} 0-0.5 [facility] Platelet mean volume Auto (B ld) [Entitic vol]Ordered By: Melo Diana on 06-09-2022 Platelet mean volume (Bld) [Entitic vol] 9.5 fL 6.3-10.7 [facility] Platelets Auto (Bld) [#/Vol] Ordered By: Melo Diana on 06-09-2022 Platelets (Bld) [#/Vol] 273 10*3/uL 150-450 [facility] RBC Auto (Bld) [#/Vol]Ordere d By: Melo Diana on 06-09-2022 RBC (Bld) [#/Vol] 4.11 10*6/uL 3.60-5.00 [facility] Serum or plasma anion gap de terminationOrdered By: Melo Diana on 06-09-2022 Anion gap [Moles/Vol] 11.8 mmol/L 6.0-15.0 [facility] Serum or plasma calcium diomedes urement (mass/volume)Ordered By: Melo Diana on 06-09-2022 Calcium [Mass/Vol] 8.3 mg/dL 8.2-10.2 [facility] Serum or plasma chloride omar surement (moles/volume)Ordered By: Melo Diana on 06-09-2022 Chloride [Moles/Vol] 98 mmol/L 95-114 [facility] Serum or plasma glucose diomedes urement (mass/volume)Ordered By: Melo Diana on 06-09-2022 Glucose [Mass/Vol] 97 mg/dL 70-100 [facility] Comment on above: ADA recommended refe rence rangeRandom Glucose Reference Range is dependent on time and content of last meal. Glucose of more than 200 mg/dL in a nonstressed, ambulatory subject supports the diagnosis of Diabetes Mellitus. Serum or plasma potassium me asurement (moles/volume)Ordered By: Melo Diana on 06-09-2022 Potassium [Moles/Vol] 4.0 mmol/L 3.5-5.1 [facility] Serum or plasma sodium measu rement (moles/volume)Ordered By: Melo Diana on 06-09-2022 Sodium [Moles/Vol] 132 mmol/L 136-146 [facility] Serum or plasma total carbon dioxide measurement (moles/volume)Ordered By: Melo Diana on 06-09-2022 CO2 [Moles/Vol] 26.2 mmol/L 22.0-30.0 [facility] Serum or plasma urea nitroge n measurement (mass/volume)Ordered By: Melo Diana on 06-09-2022 Urea nitrogen [Mass/Vol] 11 mg/dL 9-23 [facility] WBC Auto (Bld) [#/Vol]Ordere d By: Melo Diana on 06-09-2022 WBC (Bld) [#/Vol] 9.8 10*3/uL 3.8-11.6 [facility] Activated partial thrombopla stin time (aPTT) in platelet poor plasma by coagulation aOrdered By: Lorelei Avery on 06-05-2022 aPTT Coag (PPP) [Time] 32.1 s 25.1-36.5 [facility] Aerobic cultureOrdered By: Zehra Avery on 06-05-2022 Bacteria identified Aer cx Nom (Unsp spec) No Growth 2 Days [facility] Albumin [Mass/volume] in Cer ebral spinal fluidOrdered By: Lorelei Avery on 06-05-2022 Albumin (CSF) [Mass/Vol] 35 mg/dL 7 [facility] Albumin [Mass/volume] in Ser um or PlasmaOrdered By: Lorelei Avery on 06-05-2022 Albumin [Mass/Vol] 4.3 g/dL 3.9-5.0 [facility] Anaerobic cultureOrdered By: Lorelei Avery on 06-05-2022 Bacteria identified Anaer cx Nom (Unsp spec) No Anaerobes Isolated 3 Days [facility] CSF IgG/albumin ratioOrdered By: Lorelei Avery on 06-05-2022 IgG/Albumin (CSF) [Mass ratio] 0.24 0.00-0.25 [facility] Cerebrospinal fluid IgG inde xOrdered By: Lorelei Avery on 06-05-2022 IgG clearance/Albumin clearance (S+CSF) [Ratio] 0.8 0.0-0.7 [facility] Cerebrospinal fluid eosinoph il percentageOrdered By: Lorelei Avery on 06-05-2022 Eosinophils/100 WBC (CSF) 0 % 0-0 [facility] Cerebrospinal fluid lymphocy te percentageOrdered By: Lorelei Avery on 06-05-2022 Lymphocytes/Leukocytes Manual cnt (CSF) [Pure # fraction] 87 % 40-80 [facility] Cerebrospinal fluid monocyte percentageOrdered By: Lorelei Avery on 06-05-2022 Monocytes/100 WBC (CSF) 9 % 15-45 [facility] Cerebrospinal fluid neutroph il percentageOrdered By: Lorelei Avery on 06-05-2022 Neutrophils/100 WBC (CSF) 4 % 0-6 [facility] Cerebrospinal fluid post-suraj trifugation appearance determinationOrdered By: Lorelei Avery on 01-16-2023 Appearance (Spun CSF) Colorless Colorless [facility] Cerebrospinal fluid sample t ube volume measurementOrdered By: Lorelei Avery on 06-05-2022 Specimen volume (CSF) 14.0 mL [facility] Color CSFOrdered By: Lorelei Avery on 06-05-2022 Color (CSF) Colorless Colorless [facility] Gram stain for investigation of transfusion reactionOrdered By: Lorelei Avery on 06-05-2022 Microscopic observation Gram stain Nom (Unsp spec) [facility] HIV 1 and HIV-2 antibody ass ay with HIV-1 p24 antigen detectionOrdered By: Lorelei Avery on 06-05-2022 HIV 1+2 Ab+HIV1 p24 Ag IA Ql Non-Reactive Non Reactive [facility] Comment on above: HIV NegativeHIV-1/HI V-2 antibodies and HIV-1 p24 antigen were NOTdetected. There is no laboratory evidence of HIV infection.Performed at: [employer] [facility] [id number] [place] [id number] Director: Steve Fatima PhD, Phone: [phone] IgG [Mass/volume] in Cerebra l spinal fluidOrdered By: Lorelei Avery on 06-05-2022 IgG (CSF) [Mass/Vol] 8.3 mg/dL 0.0-6.7 [facility] IgG [Mass/volume] in Serum o r PlasmaOrdered By: Lorelei Avery on 06-05-2022 IgG [Mass/Vol] 1274 mg/dL [id number] [facility] IgG synthesis rate [Mass/mily e] in Serum and CSF by calculationOrdered By: Lorelei Avery on 06-05-2022 IgG synthesis rate Calc (S+CSF) [Mass/Time] 13.9 mg/day -9.9 TO +3.3 [facility] Comment on above: Performed at: [facility] [address] [id number] Director: Steve Fatima PhD, Phone: [phone] Laboratory - CoagulationOrde red By: Lorelei Avery on 06-05-2022 PT Coag (PPP) [Time] 13.4 s 9.0-12.9 [facility] Manual cerebrospinal fluid e rythrocytes count (number/volume)Ordered By: Lorelei Avery on 06-05-2022 RBC Manual cnt (CSF) [#/Vol] 0 /uL [facility] Comment on above: The reference interv al and other method performance specifications have not been established for this body fluid. The test result must be integrated into the clinical context for interpretation. No Panel InformationOrdered By: Lorelei Avery on 06-05-2022 CSF Appearance Clear Clear [facility] CSF Glucose 46 mg/dL 40-70 [facility] CSF Total Protein 59 mg/dL 15-45 [facility] CSF Tube Number Tube number: 1 [facility] No Panel InformationOrdered By: Kt Pearson on 06-05-2022 Anti-Nuclear Antibody Comment 2 See comment . [facility] Comment on above: For more information [...] titers Nucleosomes, Histones Drug-induced SLE Speckled Sm, [employer], SCL-70, SLE,MCTD,PSS (diffuse form), SS-A/SS-B Sjogrens Nucleolar SCL-70, PM-1/SCL High titers Scleroderma, PM/DM Centromere Centromere PSS (limited form) w/Crest syndrome variable Nuclear Dot [id number] Primary Biliary Cirrhosis Nuclear GP210, Primary Biliary CirrhosisMembrane miranda A,B,C Performed at: [facility] [id number] [place], [place] [id number] Director: Steve Fatima PhD, Phone: [phone] [employer] Antibody 0.2 AI 0.0-0.9 [facility] Nucleated cells [#/volume] i n Cerebral spinal fluid by Manual countOrdered By: Lorelei Avery on 06-05-2022 Nucleated cells Manual cnt (CSF) [#/Vol] 0.16 10*3/uL 0-5 [facility] Comment on above: Critical valueresult calledat 1732 on 06/05/22 Platelet poor plasma interna tional normalized ratio (INR) by coagulation assay (relatOrdered By: Lorelei Avery on 06-05-2022 INR Coag (PPP) [Relative time] 1.2 {INR} [facility] Comment on above: INR Therapeutic Rang [...] Ab IA Qn (S) 0.2 AI 0.0-0.9 [facility] Comment on above: Performed at: [employer] [place], [place] [id number] Director: Steve Fatima PhD, Phone: [phone] Serum Sjogrens syndrome-A ex tractable nuclear antibody assay (units/volume)Ordered By: Kt Pearson on 06-05-2022 Sjogrens syndrome-A extractable nuclear Ab Qn (S) 0.2 AI 0.0-0.9 [facility] Serum Sjogrens syndrome-B ex tractable nuclear antibody assay (units/volume)Ordered By: Kt Pearson on 06-05-2022 Sjogrens syndrome-B extractable nuclear Ab Qn (S) <0.2 AI 0.0-0.9 [facility] Serum Zamora extractable nucl ear antigen (HERNESTO) antibody assay (units/volume)Ordered By: Kt Pearson on 06-05-2022 Zamora extractable nuclear Ab Qn (S) <0.2 AI 0.0-0.9 [facility] Serum angiotensin converting enzyme (SUSIE) measurementOrdered By: Kt Pearson on 06-05-2022 Angiotensin converting enzyme [Catalytic activity/Vol] 26 U/L 14-82 [facility] Comment on above: Performed at: [employer] [place], [place] [id number] Director: Steve Fatima PhD, Phone: [phone] Serum homogeneous pattern an tinuclear antibody (LIZZY) titerOrdered By: Kt Pearson on 06-05-2022 Homogenous nuclear Ab pattern (S) [Titer] 1:160 . [facility] Comment on above: ICAP nomenclature: A C-1 Serum nuclear antibody titer Ordered By: Kt Pearson on 06-05-2022 Nuclear Ab (S) [Titer] Positive . [facility] Comment on above: Negative <1:80 Borde rline 1:80 Positive >1:80 Chlamydia trachomatis DNA [P resence] in Specimen by TERESA with probe detectionOrdered By: Isaías Pan on 06-04-2022 C. trachomatis DNA TERESA+probe Ql (Unsp spec) Negative Negative [facility] Fungal cultureOrdered By: Mónica Pan on 06-04-2022 Fungus identified Cx Nom (Unsp spec) [facility] Herpes simplex virus (HSV) c ulture with typingOrdered By: Isaísa Pan on 06-04-2022 HSV identified Org specific cx Nom (Unsp spec) See comment . [facility] Comment on above: Positive for Herpes simplex virus type-2. Typing wasconfirmed by monoclonal antibody microscopicimmunofluorescence.Performed at: [place] [id number] Director: Steve Fatima PhD, Phone: [phone] Neisseria gonorrhoeae DNA [P resence] in Specimen by TERESA with probe detectionOrdered By: Isaías Pan on 06-04-2022 N. gonorrhoeae DNA ETRESA+probe Ql (Unsp spec) Negative Negative [facility] Trichomonas vaginalis DNA [P resence] in Specimen by TERESA with probe detectionOrdered By: Isaías Pan on 06-04-2022 T. vaginalis DNA TERESA+probe Ql (Unsp spec) Negative Negative [facility] Comment on above: Performed at: [facility] [address] [id number] Director: Evelyn Arnold MD, Phone: [phone] Trichomonas vaginalis detect ion by wet preparationOrdered By: Isaías Pan on 06-04-2022 T. vaginalis Wet prep Ql (Unsp spec) [facility] Albumin [Mass/volume] in Ser um or PlasmaOrdered By: Ravi Zhang on 06-02-2022 Albumin [Mass/Vol] 3.5 g/dL 3.2-5.5 [facility] C reactive protein [Mass/vol ume] in Serum or PlasmaOrdered By: Ravi Zhang on 06-02-2022 CRP [Mass/Vol] 0.6 mg/dL 0.0-1.0 [facility] Direct bilirubin measurement Ordered By: Ravi Zhang on 06-02-2022 Bilirubin.direct [Mass/Vol] 0.2 mg/dL 0.0-0.4 [facility] Erythrocyte sedimentation ra te by Photometric methodOrdered By: Ravi Zhang on 06-02-2022 ESR Photometric method (Bld) [Velocity] 26 mm/hr 0-19 [facility] Folate [Mass/volume] in Seru m or PlasmaOrdered By: Ravi Zhang on 06-02-2022 Folate [Mass/Vol] 16.6 ng/mL >5.9 [facility] Comment on above: Folate reference ran ge: >5.9 ng/mlThe WHO technical consultation on folate and vitamin [id number] has determined that folate concentrations lessthan 4 ng/ml are considered deficient. Globulin Calc (S) [Mass/Vol] Ordered By: Ravi Zhang on 06-02-2022 Globulin (S) [Mass/Vol] 3.7 g/dL [facility] Glucose mean value [Mass/vol ume] in Blood Estimated from glycated hemoglobinOrdered By: Ravi Zhang on 06-02-2022 Average glucose Estimated from glycated hemoglobin (Bld) [Mass/Vol] 103 mg/dL [facility] Hemoglobin A1c percentageOrd ered By: Ravi Zhang on 06-02-2022 HbA1c (Bld) [Mass fraction] 5.2 % 4.3-5.6 [facility] Comment on above: Increased risk for d iabetes: 5.7 - 6.4diabetes: >6.4glycemic control for adults with diabetes: <7.0 Laboratory - Chemistry and C hemistry - challengeOrdered By: Ravi Zhang on 06-02-2022 Cobalamin (Vitamin B12) [Mass/Vol] 368 pg/mL 180-914 [facility] Magnesium [Mass/Vol] 2.1 mg/dL 1.6-2.6 [facility] Phosphate [Mass/volume] in [place] or PlasmaOrdered By: Ravi Zhang on 06-02-2022 Phosphate [Mass/Vol] 3.8 mg/dL 2.5-4.6 [facility] Protein [Mass/volume] in Ser um or PlasmaOrdered By: Ravi Zhang on 06-02-2022 Protein [Mass/Vol] 7.2 g/dL 6.1-7.9 [facility] Serum or plasma alanine hooper otransferase measurement without P-5'-P (enzymatic activiOrdered By: Ravi Zhang on 06-02-2022 ALT No additional P-5'-P [Catalytic activity/Vol] 26 U/L 10-60 [facility] Serum or plasma albumin/glob ulin mass ratioOrdered By: Ravi Zhang on 06-02-2022 Albumin/Globulin [Mass ratio] 0.9 {ratio} [facility] Serum or plasma alkaline keven sphatase measurement (enzymatic activity/volume)Ordered By: Ravi Zhang on 06-02-2022 ALP [Catalytic activity/Vol] 60 U/L 32-92 [facility] Serum or plasma aspartate am inotransferase measurement (enzymatic activity/volume)Ordered By: Ravi Zhang on 06-02-2022 AST [Catalytic activity/Vol] 31 U/L 10-42 [facility] Serum or plasma non-glucuron idated bilirubin measurement (mass/volume)Ordered By: Ravi Zhang on 06-02-2022 Bilirubin.indirect [Mass/Vol] 0.7 mg/dL [facility] Serum or plasma thyroxine (T 4) measurement (mass/volume)Ordered By: Ravi Zhang on 06-02-2022 T4 [Mass/Vol] 9.70 ug/dL 5.39-11.82 [facility] Serum or plasma total biliru bin measurement (mass/volume)Ordered By: Ravi Zhang on 06-02-2022 Bilirubin [Mass/Vol] 0.9 mg/dL 0.3-1.2 [facility] TSH DL <= 0.005 mIU/L QnOrde red By: Ravi Zhang on 06-02-2022 TSH Qn 0.85 m[IU]/L 0.45-5.33 [facility] Thyroxine (T4) free [Mass/vo lume] in Serum or PlasmaOrdered By: Ravi Zhang on 06-02-2022 Free T4 [Mass/Vol] 0.96 ng/dL 0.61-1.12 [facility] MICRO OTHER TESTSOrdered By: Sree Reeves on 11-24-2021 Rapid COV Int NEG Ctl Pass (11/24/21 10:53 AM) Normal FT Man UA SS Rapid COV Int POS Ctl [place] (11/24/21 10:53 AM) Normal [facility] [place] SARS-CoV-2 (COVID-19) RNA TERESA+probe Ql (Unsp spec) Not Detected (11/24/21 10:53 AM) Normal Not Detected FT Man UA SS Vital Signs Date Time Vital Sign Value Performing Clinician Facility 12-03-2024 15:44-0400 Body mass index (BMI) [Ratio] 30.1 kg/m2 [facility] Work Phone: [facility] 12-03-2024 15:44-0400 Body weight 95.14 kg [facility] Work Phone: [facility] 12-03-2024 15:44-0400 Diastolic blood pressure 84 mm[Hg] [facility] Work Phone: [facility] 12-03-2024 15:44-0400 Systolic blood pressure 130 mm[Hg] [facility] Work Phone: [facility] 11-26-2024 13:49-0400 Body mass index (BMI) [Ratio] 29.27 kg/m2 [facility] Work Phone: [facility] 11-26-2024 13:49-0400 Body weight 92.53 kg Benji Madhu DO Work Phone: [facility] 11-26-2024 13:49-0400 Diastolic blood pressure 74 mm[Hg] Benji Madhu DO Work Phone: [facility] 11-26-2024 13:49-0400 Systolic blood pressure 116 mm[Hg] Benji Madhu DO Work Phone: [facility] 11-19-2024 14:43-0400 Body mass index (BMI) [Ratio] 29.56 kg/m2 Benji Madhu DO Work Phone: [facility] 11-19-2024 14:43-0400 Body weight 93.44 kg Benji Madhu DO Work Phone: [facility] 11-19-2024 14:43-0400 Diastolic blood pressure 80 mm[Hg] Benji Madhu DO Work Phone: [facility] 11-19-2024 14:43-0400 Systolic blood pressure 118 mm[Hg] Benji Madhu DO Work Phone: [facility] 11-12-2024 15:41-0400 Body mass index (BMI) [Ratio] 29.13 kg/m2 Susan Montano PA Work Phone: [facility] 11-12-2024 15:41-0400 Body weight 92.08 kg Susan Montano PA Work Phone: [facility] 11-12-2024 15:41-0400 Diastolic blood pressure 84 mm[Hg] Susan Charmaine PA Work Phone: [facility] 11-12-2024 15:41-0400 Systolic blood pressure 122 mm[Hg] Susan Charmaine PA Work Phone: [facility] 10-29-2024 13:45-0400 Body mass index (BMI) [Ratio] 27.81 kg/m2 Benji Madhu DO Work Phone: [facility] 10-29-2024 13:45-0400 Body weight 87.91 kg Benji Madhu DO Work Phone: [facility] 10-29-2024 13:45-0400 Diastolic blood pressure 70 mm[Hg] Benji Madhu DO Work Phone: [facility] 10-29-2024 13:45-0400 Systolic blood pressure 120 mm[Hg] Benji Madhu DO Work Phone: [facility] 10-16-2024 15:55-0400 Body mass index (BMI) [Ratio] 27.81 kg/m2 Susan Staunton PA Work Phone: [facility] 10-16-2024 15:55-0400 Body weight 87.91 kg Susan Staunton PA Work Phone: [facility] 10-16-2024 15:55-0400 Diastolic blood pressure 76 mm[Hg] Susan Staunton PA Work Phone: [facility] 10-16-2024 15:55-0400 Systolic blood pressure 122 mm[Hg] Susan Staunton PA Work Phone: [facility] 09-30-2024 10:02-0400 Body mass index (BMI) [Ratio] 27.52 kg/m2 Benji Madhu DO Work Phone: [facility] 09-30-2024 10:02-0400 Body weight 87 kg Benji Madhu DO Work Phone: [facility] 09-30-2024 10:02-0400 Diastolic blood pressure 74 mm[Hg] Benji Madhu DO Work Phone: [facility] 09-30-2024 10:02-0400 Systolic blood pressure 120 mm[Hg] Benji Madhu DO Work Phone: [facility] 09-10-2024 11:13-0400 Body mass index (BMI) [Ratio] 26.98 kg/m2 Jessy Cruz DIRECTOR OF PROPERTY MANAGEMENT Work Phone: [facility] 09-10-2024 11:13-0400 Body weight 85.28 kg Jessy Cruz DIRECTOR OF PROPERTY MANAGEMENT Work Phone: [facility] 09-10-2024 11:13-0400 Diastolic blood pressure 70 mm[Hg] Jessy Anthony DIRECTOR OF PROPERTY MANAGEMENT Work Phone: [facility] 09-10-2024 11:13-0400 Systolic blood pressure 118 mm[Hg] Jessy Jaureguierly DIRECTOR OF PROPERTY MANAGEMENT Work Phone: [facility] 08-13-2024 11:35-0400 Body mass index (BMI) [Ratio] 25.8 kg/m2 Benji Madhu DO Work Phone: [facility] 08-13-2024 11:35-0400 Body weight 81.56 kg Benji Madhu DO Work Phone: [facility] 08-13-2024 11:35-0400 Diastolic blood pressure 64 mm[Hg] Benji Madhu DO Work Phone: [facility] 08-13-2024 11:35-0400 Systolic blood pressure 112 mm[Hg] Benji Madhu DO Work Phone: [facility] 07-16-2024 10:52-0500 Body mass index (BMI) [Ratio] 25.11 kg/m2 Susan RAZO Work Phone: [facility] 07-16-2024 10:52-0500 Body weight 79.38 kg Susan Montano PA Work Phone: [facility] 07-16-2024 10:52-0500 Diastolic blood pressure 66 mm[Hg] Susan Montano PA Work Phone: [facility] 07-16-2024 10:52-0500 Systolic blood pressure 114 mm[Hg] Susan Montano PA Work Phone: [facility] 06-17-2024 11:34-0500 Body mass index (BMI) [Ratio] 24.39 kg/m2 Benji Madhu DO Work Phone: [facility] 06-17-2024 11:34-0500 Body weight 77.11 kg Benji Madhu DO Work Phone: [facility] 06-17-2024 11:34-0500 Diastolic blood pressure 62 mm[Hg] Benji Madhu DO Work Phone: [facility] 06-17-2024 11:34-0500 Systolic blood pressure 116 mm[Hg] Benji Madhu DO Work Phone: [facility] 05-20-2024 10:23-0500 Body mass index (BMI) [Ratio] 23.82 kg/m2 Nom Nurse [facility] 05-20-2024 10:23-0500 Body weight 75.3 kg [facility] Nurse [facility] 04-08-2024 18:25-0500 Body mass index (BMI) [Ratio] 26.54 kg/m2 Samra Ridgeland DO Work Phone: [facility] 04-08-2024 18:25-0500 Body temperature 98.2 [degF] Samra Ridgeland DO Work Phone: [facility] 04-08-2024 18:25-0500 Body weight 83.92 kg Samra Ridgeland DO Work Phone: [facility] 04-08-2024 18:25-0500 Diastolic blood pressure 78 mm[Hg] Samra Ridgeland DO Work Phone: [facility] 04-08-2024 18:25-0500 Heart rate 103 /min Samra Ridgeland DO Work Phone: [facility] 04-08-2024 18:25-0500 SaO2% (BldA) [Mass fraction] 98 % Samra Ridgeland DO Work Phone: [facility] 04-08-2024 18:25-0500 Systolic blood pressure 118 mm[Hg] Samra Ridgeland DO Work Phone: [facility] 02-11-2024 10:00-0400 Body height 177.8 cm [facility] PA Work Phone: [facility] 02-11-2024 10:00-0400 Body mass index (BMI) [Ratio] 26.4 kg/m2 [facility] Work Phone: [facility] 02-11-2024 10:00-0400 Body weight 83.46 kg Sampson RAZO Work Phone: [facility] 10-28-2023 11:24-0400 Body temperature 98.42 [degF] Rupert Soriano [facility] 10-28-2023 11:24-0400 Diastolic blood pressure 73 mm[Hg] Rupert Soriano [facility] 10-28-2023 11:24-0400 Heart rate 95 /min Rupert Soriano [facility] 10-28-2023 11:24-0400 Respiratory rate 16 /min Rupert Soriano [facility] [place] 10-28-2023 11:24-0400 SaO2% (BldA) [Mass fraction] 100 % Rupert Soriano [facility] [place] 10-28-2023 11:24-0400 Systolic blood pressure 131 mm[Hg] Rupert Soriano [facility] [place] 03-02-2023 11:25-0400 Body height 176.53 cm Racheal Greenberg Other [facility] Other 03-02-2023 11:25-0400 Body mass index (BMI) [Ratio] 28.31 kg/m2 Racheal Greenberg Other [facility] Other 03-02-2023 11:25-0400 Body temperature 98.2 [degF] Racheal Greenberg Other [facility] Other 03-02-2023 11:25-0400 Body weight 88.23 kg Racheal Greenberg Other [facility] Other 03-02-2023 11:25-0400 Respiratory rate 18 /min Racheal Greenberg Other [facility] [employer] Other 03-02-2023 11:25-0400 SaO2% (BldA) [Mass fraction] 99 % Racheal Gerenberg Other [facility] [employer] Other 01-07-2023 11:18-0400 Body height 182.88 cm [employer] Morro Easterwood Work Phone: [facility] 01-07-2023 11:18-0400 Body temperature 98.7 [degF] [employer] Morro Easterwood Work Phone: [facility] 01-07-2023 11:18-0400 Body weight 87.85 kg [employer] Morro Easterwood Work Phone: [facility] 01-07-2023 11:18-0400 Diastolic blood pressure 93 mm[Hg] [employer] Morro Easterwood Work Phone: [facility] 01-07-2023 11:18-0400 Heart rate 102 /min [employer] Morro Easterwood Work Phone: [facility] 01-07-2023 11:18-0400 Respiratory rate 20 /min [employer] Morro Easterwood Work Phone: [facility] 01-07-2023 11:18-0400 SaO2% (BldA) [Mass fraction] 99 % [employer] Morro Easterwood Work Phone: [facility] 01-07-2023 11:18-0400 Systolic blood pressure 146 mm[Hg] [employer] Morro Easterwood Work Phone: [facility] 06-15-2022 08:13-0500 Blood Pressure Location Iman Lue [facility] 06-15-2022 08:13-0500 Diastolic blood pressure 88 mm[Hg] Iman Lue [facility] 06-15-2022 08:13-0500 Heart rate 93 /min Iman Lue [facility] 06-15-2022 08:13-0500 Systolic blood pressure 125 mm[Hg] Iman Lue [facility] 06-15-2022 08:13-0500 weight 1.73 Iman Lue [facility] Comment on above: Result Comment: ^~:!ZScore Source [facility] 06-15-2022 08:13-0500 Weight Percentile 95.83 % Iman Lue [facility] Comment on above: Result Comment: ^~:!Percentile Source [facility] 06-14-2022 14:00-0500 Body height 176.53 cm [employer] Other [facility] Other 06-14-2022 14:00-0500 Body mass index (BMI) [Ratio] 26.49 kg/m2 [employer] Other [facility] Other 06-14-2022 14:00-0500 Body temperature 98.4 [degF] [employer] Other [facility] Other 06-14-2022 14:00-0500 Body weight 82.56 kg [employer] Other [facility] Other 06-14-2022 14:00-0500 Diastolic blood pressure 82 mm[Hg] Morro [employer] Other [facility] Other 06-14-2022 14:00-0500 Respiratory rate 20 /min Morro Hauser Other [facility] [employer] Other 06-14-2022 14:00-0500 SaO2% (BldA) [Mass fraction] 98 % Morro Hauser Other [facility] [employer] Other 06-14-2022 14:00-0500 Systolic blood pressure 120 mm[Hg] Morro Hauser Other [facility] [employer] Other 06-09-2022 17:36-0500 Body temperature 97.8 [degF] DO Ravi Lindbloom Work Phone: [facility] 06-09-2022 17:36-0500 Diastolic blood pressure 65 mm[Hg] DO Ravi Lindbloom Work Phone: [facility] 06-09-2022 17:36-0500 Heart rate 78 /min DO Ravi Lindbloom Work Phone: [facility] 06-09-2022 17:36-0500 Respiratory rate 18 /min DO Ravi Lindbloom Work Phone: [facility] 06-09-2022 17:36-0500 SaO2% (BldA) [Mass fraction] 96 % DO Ravi Lindbloom Work Phone: [facility] 06-09-2022 17:36-0500 Systolic blood pressure 129 mm[Hg] DO Ravi Lindbloom Work Phone: [facility] 06-09-2022 03:16-0500 Body weight 83.2 kg DO Ravi Lindbloom Work Phone: [facility] 06-06-2022 13:58-0500 Body height 187.96 cm DO Ravi Lindbloom Work Phone: [facility] 05-24-2022 15:07-0500 Blood Pressure Location Loreto DONALDSON [facility] 05-24-2022 15:07-0500 Body temperature 98.06 [degF] Loreto DONALDSON [facility] 05-24-2022 15:07-0500 bodymassindex 0.85 Loreto DONALDSON [facility] Comment on above: Result Comment: ^~:!ZScore [facility] 05-24-2022 15:07-0500 Diastolic blood pressure 70 mm[Hg] Loreto DONALDSON [facility] 05-24-2022 15:07-0500 Heart rate 72 /min Loreto DONALDSON [facility] 05-24-2022 15:07-0500 Height/Length Percentile 99.82 Loreto DONALDSON [facility] Comment on above: Result Comment: ^~:!Percentile Source -[facility] 05-24-2022 15:07-0500 Height/Length Z-Score 2.91 Loreto DONALDSON [facility] Comment on above: Result Comment: ^~:!ZScore [facility] 05-24-2022 15:07-0500 SaO2% (BldA) [Mass fraction] 99 % Loreto DONALDSON [facility] 05-24-2022 15:07-0500 Systolic blood pressure 110 mm[Hg] Loreto DONALDSON [facility] 05-24-2022 15:07-0500 weight 1.68 Loreto DONALDSON [facility] Comment on above: Result Comment: ^~:!ZScore [facility] 05-24-2022 15:07-0500 Weight Percentile 95.39 % Loreto DONALDSON [facility] Comment on above: Result Comment: ^~:!Percentile Source -[facility] 01-05-2022 09:00-0400 Body height 176.53 cm Morro [place]wood Other [facility] Other 01-05-2022 09:00-0400 Body mass index (BMI) [Ratio] 26.34 kg/m2 Morro [place]wood Other [facility] Other 01-05-2022 09:00-0400 Body temperature 98 [degF] Morro Easterwood Other [facility] Other 01-05-2022 09:00-0400 Body weight 82.1 kg Morro Easterwood Other [facility] Other 01-05-2022 09:00-0400 Diastolic blood pressure 78 mm[Hg] Morro Easterwood Other [facility] Other 01-05-2022 09:00-0400 Respiratory rate 20 /min Morro Easterwood Other [facility] Other 01-05-2022 09:00-0400 SaO2% (BldA) [Mass fraction] 99 % Morro Easterwood Other [facility] Other 01-05-2022 09:00-0400 Systolic blood pressure 120 mm[Hg] Morro Easterwood Other [facility] Other 11-22-2021 11:30-0400 Body height 176.53 cm Morro Easterwood Other [facility] Other 11-22-2021 11:30-0400 Body mass index (BMI) [Ratio] 25.62 kg/m2 Morro Easterwood Other [facility] Other 11-22-2021 11:30-0400 Body temperature 98.1 [degF] Morro Easterwood Other [facility] Other 11-22-2021 11:30-0400 Body weight 79.83 kg Morro [employer] Other [facility] Other 11-22-2021 11:30-0400 Diastolic blood pressure 80 mm[Hg] Morro Easterwood Other [facility] Other 11-22-2021 11:30-0400 Respiratory rate 20 /min Morro Easterwood Other [facility] Other 11-22-2021 11:30-0400 SaO2% (BldA) [Mass fraction] 99 % Morro Easterwood Other [facility] Other 11-22-2021 11:30-0400 Systolic blood pressure 120 mm[Hg] Morro [place]wood Other [facility] Other 09-13-2021 15:00-0400 Body height 176.53 cm Morro Easterwood Other [facility] Other 09-13-2021 15:00-0400 Body mass index (BMI) [Ratio] 25.76 kg/m2 Morro [place]wood Other [facility] Other 09-13-2021 15:00-0400 Body temperature 98.4 [degF] Morro Hauser Other [facility] Other 09-13-2021 15:00-0400 Body weight 80.29 kg Morro Hauser Other [facility] Other 09-13-2021 15:00-0400 Diastolic blood pressure 70 mm[Hg] Morro Hauser Other [facility] Other 09-13-2021 15:00-0400 Respiratory rate 20 /min Morro Hauser Other [facility] Other 09-13-2021 15:00-0400 SaO2% (BldA) [Mass fraction] 98 % Morro Hauser Other [facility] Other 09-13-2021 15:00-0400 Systolic blood pressure 108 mm[Hg] Morro Hauser Other [facility] Other Encounters Encounter Date Encounter Type Care Provider Facility Start: 12-03-2024 End: 12-03-2024 ambulatory BENJI MADHU Not Available Start: 12-03-2024 End: 12-03-2024 Office outpatient visit 15 minutes Benji Madhu DO Work Phone: [facility] Comment on above: Third trimester preg dave ([facility]); 39 weeks gestation of ([facility]) Start: 12-03-2024 End: 12-03-2024 Bamboo flowsheet Benji Madhu DO Work Phone: [facility] Start: 12-03-2024 End: 12-03-2024 Bamboo flowsheet Benji Madhu DO Work Phone: [facility] Start: 11-26-2024 End: 11-26-2024 Bamboo flowsheet Benji Madhu DO Work Phone: [facility] Start: 11-26-2024 End: 11-26-2024 Bamboo flowsheet Benji Madhu DO Work Phone: [facility] Start: 11-26-2024 End: 11-26-2024 ambulatory BENJI MADHU Not Available Start: 11-26-2024 End: 11-26-2024 Office outpatient visit 15 minutes Benji Madhu DO Work Phone: [facility] Comment on above: Third trimester preg dave ([facility]); 38 weeks gestation of ([facility]) Start: 11-19-2024 End: 11-19-2024 ambulatory BENJI MADHU Not Available Start: 11-19-2024 End: 11-19-2024 Office outpatient visit 15 minutes Benji Madhu DO Work Phone: [facility] Comment on above: Third trimester preg dave ([facility]); 37 weeks gestation of ([facility]) Start: 11-19-2024 End: 11-19-2024 Bamboo flowsheet Benji Madhu DO Work Phone: [facility] Start: 11-19-2024 End: 11-19-2024 Bamboo flowsheet Benji Madhu DO Work Phone: [facility] Start: 11-12-2024 End: 11-12-2024 ambulatory SUSAN MONTANO Not Available Start: 11-12-2024 End: 11-12-2024 Office outpatient visit 15 minutes Susan RAZO Work Phone: [facility] Comment on above: Third trimester preg dave ([facility]) Start: 11-12-2024 End: 11-12-2024 Bamboo flowsheet Susan [...] 10-16-2024 Office outpatient visit 15 minutes Susan Montano PA Work Phone: [facility] Comment on above: Third trimester preg dave; 32 weeks gestation of ; Low-lying placenta Start: 10-16-2024 End: 10-16-2024 ambulatory SUSAN MONTANO Not Available Start: 09-30-2024 End: 09-30-2024 Bamboo flowsheet Benji Madhu DO Work Phone: [facility] Start: 09-30-2024 End: 09-30-2024 Bamboo flowsheet Benji Madhu DO Work Phone: [facility] Start: 09-30-2024 End: 09-30-2024 ambulatory BENJI MADHU Not Available Start: 09-30-2024 End: 09-30-2024 Office outpatient visit 15 minutes Benji Madhu DO Work Phone: [facility] Comment on above: Third trimester preg dave; 30 weeks gestation of ; size inconsistent with dates; HSV (herpes simplex virus) infection Start: 09-24-2024 End: 09-24-2024 Clinisync Result Encounter Benji Madhu DO Work Phone: [facility] Unsolicited Start: 09-24-2024 End: 09-24-2024 Clinisync Result Encounter Benji Madhu DO Work Phone: [facility] External Department Unsolicited Start: 09-10-2024 End: 09-10-2024 Bamboo flowsheet Jessy Anthony DIRECTOR OF PROPERTY MANAGEMENT Work Phone: [facility] Start: 09-10-2024 End: 09-10-2024 Bamboo flowsheet Jessy Anthony DIRECTOR OF PROPERTY [employer]NAGEMENT Work Phone: [facility] Start: 09-10-2024 End: 09-10-2024 ambulatory JESSY ANTHONY Not Available Start: 09-10-2024 End: 09-10-2024 Office outpatient visit 15 minutes Jessy Cruz [employer] Work Phone: [facility] Comment on above: Second trimester pre gnancy; 27 weeks gestation of ; Low-lying placenta Start: 09-01-2024 End: 09-01-2024 ambulatory BENJI MADHU Not Available Start: 08-13-2024 End: 08-13-2024 Bamboo flowsheet Benji Madhu DO Work Phone: [facility] Start: 08-13-2024 End: 08-13-2024 Bamboo flowsheet Benji Madhu DO Work Phone: [facility] Start: 08-13-2024 End: 08-13-2024 Office [...] visit 15 minutes Susan RAZO Work Phone: [facility] Comment on above: Well woman exam with routine gynecological exam; Second trimester ; 19 weeks gestation of ; Vaginal discharge; STD exposure; Screening, , for anatomic survey Start: 07-16-2024 End: 07-16-2024 Patient encounter procedure Susan RAZO Work Phone: [facility] Healthcare Work Phone: Start: 06-17-2024 End: 06-17-2024 [...] Start: 05-14-2024 End: 05-14-2024 ambulatory Percy Mendoza Facility:[facility] Start: 04-15-2024 End: 04-15-2024 Office outpatient visit 15 minutes Bejni Madhu DO Work Phone: [facility] Comment on above: Encounter for survei llance of other contraceptive Start: 04-08-2024 End: 04-08-2024 ambulatory SAMRA L CUTLER Not Available Start: 04-08-2024 End: 04-08-2024 Office outpatient visit 15 minutes Samra L Ridgeland DO Work Phone: [facility] Comment on above: Dysuria (Primary Dx) ; Acute cystitis without hematuria Start: 02-11-2024 End: 02-11-2024 Bamboo flowsheet Sampson Taylor Ayala PA Work Phone: [facility] Start: 02-11-2024 End: 02-11-2024 Bamboo flowsheet Sampson Taylor Ayala PA Work Phone: [facility] Start: 02-11-2024 End: 02-11-2024 Patient encounter procedure Sampson Taylor Ayala PA Work Phone: [facility] Comment on above: Status post arthrosc opy of right knee (Primary Dx) Start: 02-11-2024 End: 02-11-2024 ambulatory SAMPSON Taylor AYALA Not Available Start: 11-28-2023 End: 11-28-2023 Patient encounter procedure Sampson Taylor Ayala [facility] [place] Start: 10-28-2023 End: 10-28-2023 Emergency department patient visit Rupert Soriano [facility] [place] Start: 03-02-2023 End: 03-02-2023 ambulatory Racheal Greenberg Other [facility] Other Start: 03-02-2023 Office outpatient vi sit 15 minutes Racheal Greenberg [facility] Start: 01-07-2023 End: 01-07-2023 Emergency department patient visit [employer] Morro Hauser Work Phone: [facility] Work Phone: Start: 11-15-2022 End: 11-25-2022 Pre-admission assessment Carlin Fuentes [facility] [place] Start: 08-16-2022 End: 08-16-2022 [facility]ulatory [facility] Other Start: 08-16-2022 [facility] Start: 07-03-2022 End: 07-04-[address] JOSÉ MIGUEL LAM Facility: Start: 06-15-2022 End: 06-15-2022 Patient encounter procedure Iman Gomez [facility] Start: 06-14-2022 End: 06-14-2022 [facility]ulatory [facility] Other [facility] Other Start: 06-14-2022 Office outpatient vi sit 40 minutes Morro Hauser [facility] Start: 06-09-2022 End: 06-09-2022 [facility]ulatory [facility] Other [facility] Other Start: 06-09-2022 [facility] Start: 06-02-2022 End: 06-09-2022 Evaluation and management of inpatient DO Ravi Zhang Work Phone: [facility] [place] [facility] Work Phone: Start: 05-24-2022 End: 05-24-2022 Patient encounter procedure Loreto DONALDSON [facility] Start: 01-05-2022 End: 01-05-2022 ambulatory Morro [place] Other [facility] Other Start: 01-05-2022 Office outpatient vi sit 15 minutes Morro [place] [facility] Start: 11-24-2021 End: 11-24-2021 ambulatory Morro [place] Other [facility] Other Start: 11-24-2021 Telephone encounter Morro [place] [facility] Start: 11-24-2021 End: 02-22-2022 Recurring MORRO [place] [facility] [place] Start: 11-22-2021 End: 11-22-2021 ambulatory Morro [place] Other [facility] Other Start: 11-22-2021 Office outpatient vi sit 15 minutes Morro [place] [facility] Start: 09-13-2021 End: 09-13-2021 ambulatory Morro [place] Other [facility] Other Start: 09-13-2021 Office outpatient vi sit 15 minutes Morro [place] [facility] Procedures Date Procedure Procedure Detail Performing Clinician Start: 12-03-2024 Urnls dip stick/tabl et rgnt non-auto w/o micrscp Benji Madhu DO Work Phone: Start: 11-26-2024 Urnls dip stick/tabl et rgnt non-auto w/o micrscp Benji Madhu DO Work Phone: Start: 11-19-2024 Urnls dip stick/tabl et rgnt non-auto w/o micrscp Benji Madhu DO Work Phone: Start: 09-24-2024 ALL CBC WITH AUTO DIFF Benji Madhu DO Work Phone: Start: 09-10-2024 Urnls dip stick/tabl et rgnt non-auto w/o micrscp Jessy Cruz DIRECT[employer] PROPERTY [employer]NAGEMENT Work Phone: Start: 08-13-2024 Urnls dip stick/tabl [...] Start: 06-05-2022 Aerobic microbial culture DO Ravi Ojedam Work Phone: Start: 06-05-2022 Anaerobic microbial culture DO Ravi Zhang Work Phone: Start: 06-05-2022 Investigation of transfusion reaction DO Ravi Ojedam Work Phone: Start: 06-05-2022 MRI of head [...] Treatment Date Care Activity Detail Author Start: 12-03-2024 End: 12-03-2024 Patient encounter procedure 12/03/2024 3:30 PM EDT Routine [facility] [address] [facility] [facility] [place] [place] [phone] Benji Leung, DO [address] [place] [address] [facility] Start: 11-26-2024 End: 11-26-2024 Patient encounter procedure 11/26/2024 1:30 PM EDT Routine [facility] [address] [place] [address] Benji Leung, DO [address] [place] [address] [facility] Start: 11-19-2024 End: 11-19-2024 Patient encounter procedure 11/19/2024 2:30 PM EDT Routine [facility] [address] [facility] [place] [phone] Benji Leung, DO [address] [place] [address] [facility] Start: 11-12-2024 End: 11-12-2024 Patient encounter procedure 11/12/2024 3:20 PM EDT Routine [facility] [address] [facility] [place] [phone] Suasn Montano, PA [address] [place], [place] [id number] [facility] Start: 11-12-2024 End: 11-12-2025 CULTURE, GROUP B STREP WITH SUSCEPTIBLITY CULTURE, GROUP B STREP WITH SUSCEPTIBLITY Lab Routine Third trimester ([facility]) Expected: 11/12/2024, Expires: 11/12/2025 [facility] Work Phone: Comment on above: Expected: 11/12/2024 , Expires: 11/12/2025 Start: 10-29-2024 End: 10-29-2024 Patient encounter procedure [facility] Comment on above: Arrived Start: 10-16-2024 End: 01-16-2025 US Pelvis transvaginal US OB transvaginal Imaging Routine Low-lying placenta Expected: 10/16/2024, Expires: 01/16/2025 [facility] Work Phone: Comment on above: Expected: 10/16/2024 , Expires: 01/16/2025 Start: 09-30-2024 End: 01-31-2025 US for US OB follow up transabdominal approach Imaging Routine size inconsistent with dates Expected: 09/30/2024, Expires: 01/31/2025 [facility] Work Phone: Comment on above: Expected: 09/30/2024 , Expires: 01/31/2025 Start: 09-30-2024 End: 09-30-2024 Patient encounter procedure 09/30/2024 9:50 AM EDT Routine [facility] [address] [facility] [place] [address] Benji Leung DO [address] [place], [place] [id number] [facility] Start: 09-10-2024 End: 09-10-2024 Patient encounter procedure 09/10/2024 10:30 AM EDT Routine [facility] [address] [facility] [place] [phone] Susan Montano PA [address] [place], [place] [id number] [facility] Start: 09-01-2024 End: 09-01-2024 Professional / ancillary services management 09/01/2024 1:00 PM EDT Ancillary Procedure [facility] [address] [place] [address] [facility] Start: 08-13-2024 End: 08-13-2025 CBC panel - Blood by Automated count CBC Lab Routine Diabetes mellitus screening Expected: 08/13/2024 (Approximate), Expires: 08/13/2025 [facility] Work Phone: Comment on above: Expected: 08/13/2024 (Approximate), Expires: 08/13/2025 Start: 08-13-2024 End: 08-13-2025 Measurement of glucose 1 hour after glucose challenge for glucose tolerance test Glucose tolerance, 1 hour Lab Routine Diabetes mellitus screening Expected: 08/13/2024 (Approximate), Expires: 08/13/2025 [facility] Comment on above: Expected: 08/13/2024 (Approximate), Expires: 08/13/2025 Start: 08-13-2024 End: 08-13-2024 Patient encounter procedure [facility] Comment on above: Arrived Start: 07-16-2024 End: 07-16-2025 Alpha fetoprotein, maternal Alpha fetoprotein, maternal Lab Routine Second trimester 19 weeks gestation of Expected: 07/16/2024 (Approximate), Expires: 07/16/2025 [facility] Comment on above: Expected: 07/16/2024 (Approximate), Expires: 07/16/2025 Start: 07-16-2024 End: 07-16-2025 US for US OB 14+ weeks anatomy scan Imaging Routine Screening, , for anatomic survey Expected: 07/16/2024, Expires: 07/16/2025 [facility] Comment on above: Expected: 07/16/2024 , Expires: 07/16/2025 Start: 07-16-2024 End: 07-16-2024 Patient encounter procedure 07/16/2024 10:30 AM EST Routine [facility] [address] [place] [address] Susan Montano PA [address] [place] [address] [facility] Start: 06-17-2024 End: 06-17-2024 Patient encounter procedure [facility] Comment on above: Arrived Start: 05-20-2024 End: 05-20-2025 ABO/Rh ABO/Rh Lab Routine Missed menses , unspecified gestational age Expected: 05/20/2024 (Approximate), Expires: 05/20/2025 [facility] Comment on above: Expected: 05/20/2024 [...] EST Office Visit [facility] [address] [place] [phone] Benji Leung DO [address] [place] [address] [facility] Start: 02-11-2024 End: 02-11-2024 Patient encounter procedure 02/11/2024 10:00 AM EDT Office Visit [facility] [address] [place] [address] Sampson Ayala PA [address] [place] [address] Arrived [facility] Comment on above: Arrived Start: 06-09-2022 [facility] Start: 06-06-2022 Referral to infectio us diseases physician [facility] Start: 06-05-2022 Borrelia burgdorferi DNA assay [facility] Start: 06-05-2022 End: 06-05-2022 [facility] Start: 06-05-2022 [facility] Start: 06-04-2022 Referral to music engineer [facility] Start: 06-04-2022 Referral to urologist [facility] Start: 06-02-2022 Hospital admission [facility] Start: 06-02-2022 Referral to neurologist [facility] Bacteria identified in Urine by Culture Urine culture Microbiology Routine Missed menses Ordered: 05/20/2024 [facility] Comment on above: Ordered: 05/20/2024 CBC W Auto Different ial panel - Blood CBC and differential Lab Routine Missed menses , unspecified gestational age Ordered: 05/20/2024 [facility] Comment on above: Ordered: 05/20/2024 CHLAMYDIA TRACHOMATI S (GENITO/STI) CHLAMYDIA TRACHOMATIS (GENITO/STI) Lab Routine STD exposure Ordered: 07/16/2024 [facility] Comment on above: Ordered: 07/16/2024 Cytology Cervical or vaginal smear or scraping study Pap Smear Pathology and Cytology Routine Well woman exam with routine gynecological exam Ordered: 07/16/2024 [facility] Comment on above: Ordered: 07/16/2024 Hemoglobin A1c/Hemoglobin.total in Blood Hemoglobin A1c Lab Routine Missed menses , unspecified gestational age Ordered: 05/20/2024 [facility] Comment on above: Ordered: 05/20/2024 Hepatitis B virus surface Ag [Presence] in Serum or Plasma by Immunoassay Hepatitis B surface antigen Lab Routine Missed menses , unspecified gestational age Ordered: 05/20/2024 [facility] Comment on above: Ordered: 05/20/2024 Hepatitis C virus Ab [Presence] in Serum or Plasma by Immunoassay Hepatitis C antibody Lab Routine Missed menses , unspecified gestational age Ordered: 05/20/2024 [facility] Comment on above: Ordered: 05/20/2024 HIV-1/HIV-2 antigen/antibody combination immunoassay HIV-1 and HIV-2 antibodies Lab Routine Missed menses , unspecified gestational age Ordered: 05/20/2024 [facility] Comment on above: Ordered: 05/20/2024 IgG [Mass/volume] in Serum or Plasma [facility] Neisseria gonorrhoea e DNA [Presence] in Unspecified specimen by TERESA with probe detection Neisseria gonorrhea DNA probe, direct Lab Routine STD exposure Ordered: 07/16/2024 [facility] Comment on above: Ordered: 07/16/2024 Patient Education [facility] Work Phone: Patient referral [facility] Work Phone: Protein fractions.oligoclonal bands.intrathecal [Presence] in Serum and CSF [facility] Reagin Ab [Presence] in Serum by RPR RPR Lab Routine Missed menses , unspecified gestational age Ordered: 05/20/2024 [facility] Comment on above: Ordered: 05/20/2024 Rubella antibody, IgG Rubella an tibody, IgG Lab Routine Missed menses , unspecified gestational age Ordered: 05/20/2024 [facility] Comment on above: Ordered: 05/20/2024 SURESWAB(R) ADVANCED VAGINITIS PLUS, TMA SURESWAB(R) ADVANCED VAGINITIS PLUS, TMA Pathology and Cytology Routine Vaginal discharge Ordered: 07/16/2024 [facility] Work Phone: Comment on above: Ordered: 07/16/2024 URINARY TRACT INFECT ION (HTRX) URINARY TRACT INFECTION (HTRX) Lab Routine Dysuria Ordered: 04/08/2024 [facility] Work Phone: Comment on above: Ordered: 04/08/2024 Payers Date Payer Category Payer Self-pay [id number] 2023 Medicaid [id number] 2022 Medicaid [id number] 2003 Unknown [id number] 2.16.84 0.1.649476.3.579.2.593 2003 Unknown [id number] 2.16.8 40.1.298114.3.579.2.727 2003 Unknown [id number] 2.16.8 40.1.916913.3.579.2.1259 2003 Unknown [id number] 2.16.8 40.1.685440.3.579.2.1259 2003 Unknown [id number] 2.16.8 40.1.965033.3.579.2.1259 2003 Unknown [id number] 2.16.8 40.1.414269.3.579.2.1259 2003 Unknown [id number] 2.16.8 40.1.780515.3.579.2.1259 2003 Unknown [id number] 2.16.84 0.1.591004.3.579.2.1259 2003 Unknown [id number] 2.16.84 0.1.684236.3.579.2.9 2003 Unknown [id number] 2.16.84 0.1.692069.3.579.2.125 2003 Unknown [id number] 2.16.84 0.1.944143.3.579.2.1258 2003 Unknown [id number] 2.16.84 0.1.557719.3.579.2.1258 2003 Unknown [id number] 2.16.84 0.1.875905.3.579.2.9 2003 Unknown [id number] 2.16.84 0.1.786215.3.579.2.1258 2003 Unknown [id number] 2.16.84 0.1.178738.3.579.2.1259 2003 Unknown [id number] 2.16.84 0.1.821493.3.579.2.1258 2003 Unknown [id number] 2.16.84 0.1.515026.3.579.2.9 2003 Unknown [id number] 2.16.84 0.1.856772.3.579.2.9 2003 Unknown [id number] 2.16.84 0.1.652649.3.579.2.1259 Unknown [id number] 2.1 6.840.1.158136.19 Unknown [id number] 2.16.8 40.1.856611.3.579.2.531 Social History Date Type Detail Facility Start: 02-11-2024 End: 04-08-2024 Sex Assigned At [facility] Other Start: 07-01-2020 End: 12-22-2022 Tobacco smoking status Never smoked tobacco (finding) [facility] Tobacco smoking status Never [facility] Start: 2005 Sex Assigned At Female [facility] Start: 12-22-2022 Tobacco use and exposure Smokeless tobacco non-user [facility] Start: 04-08-2024 End: 09-30-2024 Alcoholic beverage intake Lifetime non-drinker (finding) [facility] Start: 02-11-2024 End: 04-08-2024 History of Social function [facility] Start: 12-22-2022 Alcohol Comment Caffeine: 1-2 cups/day tea, chocolate [facility] Start: 12-24-2022 Gender identity Identifies as female gender (finding) [facility] Start: 12-24-2022 Sexual orientation Heterosexual (finding) [facility] Start: 03-18-2024 [facility] Functional Status Date Assessment Result Facility 10-28-2023 Functional Status N/A [facility] 06-15-2022 Functional Status N/A [facility] 06-09-2022 Functional status Patient at [facility] Work Phone: 05-24-2022 Functional Status N/A [facility] Mental Status Date Assessment Result Facility 06-09-2022 Cognitive function Cognitive Sta tus Patient at [facility] Work Phone: Clinical Notes 09-13-2021 to 12-03-2024 Su Emery LPN - 12/03/2024 3:30 PM Felicita Emery LPN - 11/26/2024 1:30 PM Felicita Emery LPN - 11/19/2024 2:30 PM John Cruz NP - 11/12/2024 3:20 PM EDTPatient Instructions Note Date & Type Note Facility 12-03-2024 History of Present illness Narrative Reason for [...] SURGERY Right 02/01/2024 Arthroscopy w/ MTP @ [facility] OTHER SURGICAL HISTORY 2004 adnoidectomy REVIEW [...] note reviewed. Exam conducted with a supervisor die casting present. Vitals: Estimated body mass index is 30.1 kg/m as calculated from the following: Height as of 02/11/24: 5' 10 . Weight as of this encounter: 209 lb 12 oz. BP: 130/84 No LMP recorded. Patient is . ASSESSMENT & PLAN ICD-10-CM 1. Third trimester ([facility]) Z34.93 POCT urinalysis dipstick manually resulted 2. 39 weeks gestation of ([facility]) Z3A.39 Return OB: Patient presents [...] Benji Leung DO documented in this encounter [facility] 11-26-2024 History of Present illness Narrative Reason for [...] SURGERY Right 02/01/2024 Arthroscopy w/ MTP @ [facility] OTHER SURGICAL HISTORY 2004 adnoidectomy REVIEW [...] note reviewed. Exam conducted with a supervisor die casting present. Vitals: Estimated body mass index is 29.27 kg/m as calculated from the following: Height as of 02/11/24: 5' 10 . Weight as of this encounter: 204 lb. BP: 116/74 No LMP recorded. Patient is . ASSESSMENT & PLAN ICD-10-CM 1. Third trimester ([facility]) Z34.93 POCT urinalysis dipstick manually resulted 2. 38 weeks gestation of ([facility]) Z3A.38 POCT urinalysis dipstick manually resulted Return [...] Benji Leung DO documented in this encounter [facility] 11-19-2024 History of Present illness Narrative Reason for [...] SURGERY Right 02/01/2024 Arthroscopy w/ MTP @ [facility] OTHER SURGICAL HISTORY 2004 adnoidectomy REVIEW [...] note reviewed. Exam conducted with a supervisor die casting present. Vitals: Estimated body mass index is 29.56 kg/m as calculated from the following: Height as of 02/11/24: 5' 10 . Weight as of this encounter: 206 lb. BP: 118/80 No LMP recorded. Patient is . ASSESSMENT & PLAN ICD-10-CM 1. Third trimester ([facility]) Z34.93 2. 37 weeks gestation of ([facility]) Z3A.37 Return OB: Patient presents today for a routine obstetrics appointment. Patient is currently 37w1d . Patient states she is doing well but has complaints of being tired due to current . Patient has verbalizes frequent movement. labor precautions was discussed/given and patient was instructed to perform kick counts three times a day. Pts questions and concerns answered in detail. Orders Placed This Encounter Procedures POCT urinalysis dipstick manually resulted Follow Up: Patient is to return to office in 1 week for routine OB appointment. Documented by Su Emery LPN on behalf of: Benji Leung DO documented in this encounter [facility] 11-12-2024 History of Present illness Narrative Reason [...] SURGERY Right 02/01/2024 Arthroscopy w/ MTP @ [facility] OTHER SURGICAL HISTORY 2004 adnoidectomy REVIEW [...] note reviewed. Exam conducted with a supervisor die casting present. Vitals: Estimated body mass index is 29.13 kg/m as calculated from the following: Height as of 02/11/24: 5' 10 . Weight as of this encounter: 203 lb. BP: 122/84 No LMP recorded. Patient is . ASSESSMENT & PLAN ICD-10-CM 1. Third trimester ([facility]) Z34.93 CULTURE, GROUP B STREP WITH SUSCEPTIBLITY [...] a message today with the Director of [facility] to contact the patient regarding epidural concerns. Documented by Jesys Cruz NP on behalf of: NANCY Lewis documented in this encounter [facility] 10-29-2024 History of Present illness Narrative Reason [...] SURGERY Right 02/01/2024 Arthroscopy w/ MTP @ [facility] OTHER SURGICAL HISTORY 2004 adnoidectomy REVIEW [...] note reviewed. Exam conducted with a supervisor die casting present. Vitals: Estimated body mass index is [...] Benji Leung DO documented in this encounter [facility] 10-16-2024 History of Present illness Narrative Reason [...] SURGERY Right 02/01/2024 Arthroscopy w/ MTP @ [facility] OTHER SURGICAL HISTORY 2004 adnoidectomy REVIEW [...] of: DANNI Rodgers documented in this encounter [facility] 09-30-2024 History of Present illness Narrative Reason [...] SURGERY Right 02/01/2024 Arthroscopy w/ MTP @ [facility] OTHER SURGICAL HISTORY 2004 adnoidectomy REVIEW [...] note reviewed. Exam conducted with a supervisor die casting present. Vitals: Estimated body mass index is [...] Benji Leung DO documented in this encounter [facility] 09-10-2024 History of Present illness Narrative Reason [...] SURGERY Right 02/01/2024 Arthroscopy w/ MTP @ [facility] OTHER SURGICAL HISTORY 2004 adnoidectomy REVIEW [...] note reviewed. Exam conducted with a supervisor die casting present. Vitals: Estimated body mass index is [...] given at 28 weeks and sent to [facility] infusion on 06/11/24. Documented by Jessy Cruz NP on behalf of: Jessy Cruz NP documented in this encounter [facility] 08-13-2024 History of Present illness Narrative Reason [...] SURGERY Right 02/01/2024 Arthroscopy w/ MTP @ [facility] OTHER SURGICAL HISTORY 2004 adnoidectomy REVIEW [...] note reviewed. Exam conducted with a supervisor die casting present. Vitals: Estimated body mass index is [...] Benji Leung DO documented in this encounter [facility] 07-16-2024 History of Present illness Narrative Reason [...] SURGERY Right 02/01/2024 Arthroscopy w/ MTP @ [facility] OTHER SURGICAL HISTORY 2004 adnoidectomy REVIEW [...] [facility] difficulty [facility]. Orders Placed This Encounter Procedures US OB 14+ weeks anatomy scan CHLAMYDIA TRACHOMATIS (GENITO/STI) Neisseria gonorrhea DNA probe, direct Alpha fetoprotein, maternal POCT urinalysis dipstick manually resulted Follow Up: Patient is to return to our office in 4 weeks for routine OB appointment Documented by DANNI Rogders on behalf of: DANNI Rodgers documented in this encounter [facility] 06-17-2024 History of Present illness Narrative Reason [...] SURGERY Right 02/01/2024 Arthroscopy w/ MTP @ [facility] OTHER SURGICAL HISTORY 2004 adnoidectomy REVIEW [...] note reviewed. Exam conducted with a supervisor die casting present. Vitals: Estimated body mass index is [...] or undercooked meat, and [facility] Patient has been consulted regarding any further do's and don'ts of . Patient voiced understanding and all questions and concerns were answered. Orders Placed This Encounter Procedures POCT urinalysis dipstick manually resulted Follow Up: Patient is to return in 4 weeks for routine OB appointment. Documented by Su Emery LPN on behalf of: Benji Leung DO documented in this encounter [facility] 05-20-2024 History of Present illness Narrative Reason [...] SURGERY Right 02/01/2024 Arthroscopy w/ MTP @ [facility] OTHER SURGICAL HISTORY 2004 adnoidectomy No [...] or undercooked meat, and [facility]. Patient has also been advised to [...] Georgie Rios MA documented in this encounter [facility] 04-15-2024 History of Present illness Narrative Reason [...] SURGERY Right 02/01/2024 Arthroscopy w/ MTP @ [facility] OTHER SURGICAL HISTORY 2004 adnoidectomy REVIEW [...] note reviewed. Exam conducted with a supervisor die casting present. Vitals: Estimated body mass index is [...] Benji Leung DO documented in this encounter [facility] 04-08-2024 History of Present illness Narrative Images from the original note were not included. [address], [address] [facility], [address] P: [phone] F: [phone] HPI Historian of HPI: patient Heena Wang [...] capsule; Refill: 0 documented in this encounter [facility] 02-11-2024 History of Present illness Narrative Images [...] which is minimal and addressed by Dr. Soriano. She is doing well enough she does [...] use for discomfort. documented in this encounter [facility] 02-11-2024 Instructions DANNI Judd - 02/11/2024 10:00 [...] use for discomfort. documented in this encounter [facility] 10-28-2023 Hospital Discharge instructions Patient Education 10/28/2023 [...] sitting or lying down. General instructions Take inxg-qcr-xgrcrcb and prescription medicines only as told by [...] provider. Document Revised: 08/14/2022 Document Reviewed: 03/26/2020 [employer] Patient Education 2022 [employer]. 10/28/2023 12:35:22 How to Use a Knee [...] provider. Document Revised: 02/10/2022 Document Reviewed: 02/10/2022 [employer] Patient Education 2022 [employer] 10/28/2023 12:35:22 Radial Nerve Palsy Radial [...] provider. Document Revised: 06/29/2021 Document Reviewed: 06/29/2021 [employer] Patient Education 2022 [employer]. 10/28/2023 12:35:22 Crutch Use, Adult, Eszw-uk-Avbc Crutch Use, Adult Crutches are used to [...] you. Keep your weight over the hand pm head cook. 3.Bring the good leg forward to meet the crutches or to land a little bit ahead of them. 4.Repeat. Going up steps If there is no handrail: 1.Walk up to steps and put weight on hand pm head cook to step up. 2.Step up with your [...] provider. Document Revised: 11/26/2019 Document Reviewed: 11/26/2019 [employer] Patient Education 2022 [employer]. Follow Up Care 10/28/2023 11:08:54 With:Leighton Soriano Address: [address] [place] [id number]- Business (1) When:10/31/2023 12:11:58 With:MORRO HAUSER Address: [facility] NUNEZ Johan [facility] [place] [address]- [phone] Business (1) When:Within 3 Day(s) [facility] 03-02-2023 Evaluation note Encounter Date Diagnosis Assessment [...] 3 days. May return to work tomorrow [facility] Other 01-26-2023 Hospital Discharge instructions Patient Education 06/15/2022 09:22:12 Acute Urinary Retention, Female, Iprc-fy-Xyon Acute Urinary Retention, Female Acute urinary retention means that you cannot pee (urinate) at all, or that you pee too little and your bladder is not emptied completely. If it is not treated, it can lead to kidney damage or other serious problems. Follow these instructions at home: Take gnjc-abb-wdybuoq and prescription medicines only as told by [...] 10/23/2008 Document Revised: 04/19/2018 Document Reviewed: 06/08/2017 [employer] Patient Education 2020 [employer]. Follow Up Care 06/07/2022 11:50:23 With:Jsaon COELHO, VALDEMAR Xavier, URO Address: When: Unknown [facility] Milena 01-25-2023 Evaluation note* Encounter Date Diagnosis Assessment [...] of care between Inpatient setting and outpatient [employer]EL[employer]PRENTICE office. Mother confirms that she did schedule [...] that were not corrected during review process. [facility] Other 01-20-2023 Progress note Author Kt Pearson [facility] June 09, 2022 3:41pm Note Date/Time June 09, 2022 3 :42pm [facility] [address] [place] [address] Neurology Progress Note Signed Patient: Heena Wang MR#: [id number] : 2005 Acct:[id number] Age/Sex: 17 / F Adm Date: 3 Loc: 3T Room: [address] [place] [address] Type: ADM IN Attending Dr: Melo Diana [...] she went to get checked out at [facility].? She was also experiencing tingling paresthesias [...] <Electronically signed by Kt Pearson DO> 06/09/22 1545 [facility] Work Phone: 1(749) 865-502501-19-2023 Progress note Author Kt Pearson [facility] June 08, 2022 3:35pm Note Date/Time June 08, 2022 7 :41am [facility] [address] [place] [address] Neurology Progress Note Signed Patient: Heena Wang MR#: [id number] : 2005 Acct:[id number] Age/Sex: 17 / F Adm Date: 3 Loc: 3T Room: [address] [place] [address] Type: ADM IN Attending Dr: Melo Diana [...] level noted with pinprick CEREBELLAR EXAM: * Bvafem-sj-monj and alternating movements are intact and normal in bilateral upper extremities * Xsmp-mk-kspi and alternating movements are intact and normal [...] she went to get checked out at [facility].? She was also experiencing tingling paresthesias [...] <Electronically signed by Kt Pearson DO> 06/08/22 [id number] <Electronically signed by RHIANNON Avery> 06/08/22 8784 [facility] Work Phone: 1(363) 195-285001-19-2023 Progress note Author Melo Diana [facility] June 08, 2022 10:23am Note Date/Time June 08, 2022 1 0:11am [facility] [address] [place] [address] Hospitalist Progress Note Signed Patient: Heena Wang MR#: [id number] : 2005 Acct:[id number] Age/Sex: 17 / F Adm Date: 3 Loc: Room: [address] [place] [address] Type: ADM IN Attending Dr: Melo Diana [...] 18:05 06/06/22 18:10 Bisacodyl 10 Mg Supp.Rect NH 06/06/23 18:04 10 mg DAILY PRN Administration [...] Rodas catheter placement, and HSV genital and BENEFITS COORDINATOR infection. 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 Paresthesias have improved more significantly today. Suspect an autoimmune or demyelinating process given findings on MRI brain in cervical and thoracic spine. Unclear how much patient's neurologic complaints are related to this Herpes BENEFITS COORDINATOR infection. Lumbar puncture results: Lymphocytic pleocytosis, +HSV2 [...] than 0.2, Zamora IgG less than 0.2, INTERACTIVE WEB DEVELOPER 0.2, scleroderma 0.2, Anti-MOG pending. -CSF [...] by Melo Diana MD> 06/08/22 1023 [facility] Work Phone: 1(935) 248-601401-19-2023 Progress note Author Melo Diana [facility] June 07, 2022 10:30pm Note Date/Time June 07, 2022 9 :03am [facility] [address] [place] [address] Hospitalist Progress Note Signed Patient: Heena Wang MR#: [id number] : 2005 Acct:[id number] Age/Sex: 17 / F Adm Date: 3 Loc: 3T Room: [address] [place] [address] Type: ADM IN Attending Dr: Melo Diana [...] 18:05 06/06/22 18:10 Bisacodyl 10 Mg Supp.Rect NH 06/06/23 18:04 10 mg DAILY PRN Administration [...] Rodas catheter placement, and HSV genital and BENEFITS COORDINATOR infection. 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 Paresthesias have mildly improved, have moved down from the region of her umbilicus down to her ankle and foot region. Unclear how much patient's neurologic complaints are related to this Herpes BENEFITS COORDINATOR infection. Lumbar puncture results: Clear, colorless fluid [...] than 0.2, Zamora IgG less than 0.2, INTERACTIVE WEB DEVELOPER 0.2, scleroderma 0.2, Anti-MOG pending. -CSF [...] above. Documented By: Melo Diana MD 3 [id number] Signed By: <Electronically signed by Melo Diana MD> 06/07/22 7576 [facility] Work Phone: 1(750) 897-333301-18-2023 Progress note Author Kt Pearson [facility] June 07, 2022 3:13pm Note Date/Time June 07, 2022 7 :38am [facility] [address] [place] [address] Neurology Progress Note Signed Patient: Heena Wang MR#: [id number] : 2005 Acct:[id number] Age/Sex: 17 / F Adm Date: 3 Loc: Room: [address] [place] [address] Type: ADM IN Attending Dr: Melo Diana [...] level noted with pinprick CEREBELLAR EXAM: * Biaeyh-oo-mrto and alternating movements are intact and normal in bilateral upper extremities * Gtlk-ic-emgk and alternating movements are intact and normal [...] she went to get checked out at [facility].? She was also experiencing tingling paresthesias [...] 10. LIZZY positive for homogenous pattern 11. HERENSTO normal 12. B12 368, folate 16.6, TSH [...] 1513 <Electronically signed by RHIANNON Avery> 06/07/22 6686 [facility] Work Phone: 1(853) 401-602301-17-2023 Progress note Author Melo Diana [facility] June 06, 2022 4:37pm Note Date/Time June 06, 2022 8 :26am [facility] [address] [place] [address] Hospitalist Progress Note Signed Patient: Heena Wang MR#: [id number] : 2005 Acct:[id number] Age/Sex: 17 / F Adm Date: 3 Loc: Room: [address] [place] [address] Type: ADM IN Attending Dr: Melo Diana [...] 09:00 Valacyclovir 500 Mg Tablet PO TID [facility] A&P - Hospitalist Assessment/Plan (1) Herpes simplex [...] Bilateral Paresthesia of the Lower Extremities 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 Unclear how much patient's neurologic complaints are related to this Herpes BENEFITS COORDINATOR infection. Lumbar puncture results: Clear, colorless fluid [...] -Immunology for: LIZZY, SS?A/Ro, SS-B/La, Zamora IgG, INTERACTIVE WEB DEVELOPER, scleroderma pending -CSF albumin, oligoclonal IgG [...] signed by Melo Diana MD> 06/06/22 1637 [facility] Work Phone: 1(890) 464-347201-17-2023 Progress note Author Kt Pearson [facility] June 06, 2022 3:31pm Note Date/Time June 06, 2022 7 :55am [facility] [address] [place] [address] Neurology Progress Note Signed Patient: Heena Wang MR#: [id number] : 2005 Acct:[id number] Age/Sex: 17 / F Adm Date: 3 Loc: 3T Room: [address] [place] [address] Type: ADM IN Attending Dr: Melo Diana [...] level noted with pinprick CEREBELLAR EXAM: * Voxrfn-pi-xxde and alternating movements are intact and normal in bilateral upper extremities * Etfa-gm-ugbp and alternating movements are intact and normal [...] she went to get checked out at [facility].? She was also experiencing tingling paresthesias [...] <Electronically signed by RHIANNON Avery> 06/06/22 0943 [facility] Work Phone: 1(937) 745-645301-17-2023 Consult note Author Leighton Vitale [facility] June 06, 2022 10:21am Note Date/Time June 06, 2022 1 0:09am [facility] [address] [place] [address] Infect. Disease Consult Note Signed Patient: Heena Wang MR#: [id number] : 2005 Acct:[id number] Age/Sex: 17 / F Adm Date: 3 Loc: Room: [address] [place] [address] Type: ADM IN Attending Dr: Melo Diana [...] period of time. She had seen at [facility] and was given oral Flagyl and [...] Medical History (Updated 06/06/22 @ 10:19 by Leighton Vitale MD) Scoliosis Social History Smoking Status: [...] 100 Mg Capsule) 100 mg PO BID [facility] Stop: 06/04/23 20:59 Last Admin: 06/06/22 08:46 Dose: 100 mg Methylprednisolone Sodium Succinate 1,000 mg/ Sodium Chloride 116 mls @ 116 mls/hr IV DAILY [facility] Stop: 06/08/22 17:59 Last Admin: 06/06/22 09:47 Dose: 116 mls/hr Morphine Sulfate (Morphine Sulfate 2 Mg/Ml Vial) 2 mg IV-PUSH Q4H PRN PRN Reason: Pain Last Admin: 06/04/22 02:57 Dose: 2 mg Polyethylene Glycol (Polyethylene Glycol 3350 17 Gm Powd.Pack) 17 gm PO DAILY [facility] Stop: 06/04/23 19:44 Last Admin: 06/06/22 08:46 Dose: 17 gm Valacyclovir HCl (Valacyclovir 500 Mg Tablet) 1,000 mg PO TID [facility] Last Admin: 06/06/22 08:46 Dose: 1,000 mg [...] time. She remains on steroids. Documented By: Leighton Vitale MD 06/06/22 1007 Signed By: <Electronically signed by MD Leighton Vitale> 06/06/22 1021 [facility] Work Phone: 1(484) 136-309101-16-2023 Progress note Author Melo Diana [facility] June 05, 2022 5:58pm Note Date/Time June 05, 2022 9 :00am [facility] [address] [place] [address] Hospitalist Progress Note Signed Patient: Heena Wang MR#: [id number] : 2005 Acct:[id number] Age/Sex: 17 / F Adm Date: 3 Loc: 3T Room: [address] [place] [address] Type: ADM IN Attending Dr: Melo Diana [...] -Immunology for: LIZZY, SS?A/Ro, SS-B/La, Zamora IgG, INTERACTIVE WEB DEVELOPER, scleroderma pending -Lumbar puncture results pending. [...] above. Documented By: Melo Diana MD 3 [id number] Signed By: <Electronically signed by Melo Diana MD> 06/05/22 4231 [facility] Work Phone: 1(568) 141-843501-16-2023 Progress note Author Kt Pearson [facility] June 05, 2022 5:19pm Note Date/Time June 05, 2022 9 :08am [facility] [address] [place] [address] Neurology Progress Note Signed Patient: Heena Wang MR#: [id number] : 2005 Acct:[id number] Age/Sex: 17 / F Adm Date: 3 Loc: 3T Room: [address] [place] [address] Type: ADM IN Attending Dr: Melo Diana [...] level noted with pinprick CEREBELLAR EXAM: * Hsbtyu-wh-tocf and alternating movements are intact and normal in bilateral upper extremities * Oyhm-tw-lbkw and alternating movements are intact and normal [...] she went to get checked out at [facility].? She was also experiencing tingling paresthesias [...] dailyfor 3 to 5 days. Documented By: tK Pearson DO 06/05/22 0901 Signed By: <Electronically signed by Kt Pearson DO> 06/05/22 1719 <Electronically signed by RHIANNON Avery> 06/05/22 1043 [facility] Work Phone: 1(517) 229-571101-16-2023 [facility] Progress note Author Ravi Zhnag [facility] June 04, 2022 6:44pm Note Date/Time June 04, 2022 1 0:01am [facility] [address] [place] [address] Hospitalist Progress Note Signed Patient: Heena Wang MR#: [id number] : 2005 Acct:[id number] Age/Sex: 17 / F Adm Date: 3 Loc: Room: [address] [place] [address] Type: ADM IN Attending Dr: Ravi Zhang [...] signed by Ravi Zhang DO> 06/04/22 1844 [facility] Work Phone: 1(231) 787-365801-15-2023 Consult note Author Isaías Pan [facility] June 04, 2022 2:39pm Note Date/Time June 04, 2022 2 :19pm [facility] [address] [place] [address] GAS WELDER APPRENTICE Consult Note Signed Patient: Heena Wang MR#: [id number] : 2005 Acct:[id number] Age/Sex: 17 / F Adm Date: 3 Loc: Room: [address] [place] [address] Type: ADM IN Attending Dr: Ravi Zhang [...] Mg Tablet) 1,000 mg PO BID WILLIAM REGISTERED DIETITIAN - Exam Physical Exam Vital signs: Temp [...] lymph nodes. Lower extremities showed no edema. REGISTERED DIETITIAN - Results Laboratory Results - Last 48 hrs. 01/13/23 22:30: Estimat Average Glucose 103, Hemoglobin A1c [...] % (Auto) 45.7, Lymph % (Auto) 42.0, [place] % (Auto) 9.4, Eos % (Auto) 0.9, Baso % (Auto) 2.0, Nucleat RBC Rel Count 0.3, Neut # (Auto) 3.1, Lymph # (Auto) 2.9, [place] # (Auto) 0.6, Eos # (Auto) 0.1, Baso # (Auto) 0.1, ESR 26 H Microbiology - Results from entire visit 06/04/22 12:05 Vaginal Fungal Smear - Final 06/04/22 12:05 Vaginal Trichomonas [place] - Final REGISTERED DIETITIAN - A/P (1) Acute urinary retention: Code(s): [...] <Electronically signed by Isaías Pan DO> 06/04/22 1432 [facility] Work Phone: 1([phone]) 185-159301-15-2023 Consult note Author Iman Gomez [facility] June 04, 2022 1:38pm Note Date/Time June 04, 2022 1 1:04am [facility] [address] [place] [address] Urology Consult Note Signed Patient: Heena Wang MR#: [id number] : 2005 Acct:[id number] Age/Sex: 17 / F Adm Date: 3 Loc: Room: [address] [place] [address] Type: ADM IN Attending Dr: Ravi Zhang DO Copies to: WINNIE Thomas MD Kristopher L Lindbloom, DO~ History of Present Illness Consult Details Consult Date: 06/04/2022 Reason for Urology Consult: Urinary retention Requesting Provider: Ravi Zhang DO HPI: 17 year old healthy female transferred from outside hospital to [facility] on 06/02/2022 with acute urinary retention [...] has not beendiagnosed with PCOS, no prior REGISTERED DIETITIAN evaluation. Has appointment this week. Her paresthesias [...] % (Auto) 45.7, Lymph % (Auto) 42.0, [place] % (Auto) 9.4, Eos % (Auto) 0.9, Baso % (Auto) 2.0, Nucleat RBC Rel Count 0.3, Neut # (Auto) 3.1, Lymph # (Auto) 2.9, Win[place] # (Auto) 0.6, Eos # (Auto) 0.1, [...] Neurologic evaluation negative. Patient was down with GAS WELDER APPRENTICE getting examined due to swollen and painful [...] signed by Iman Gomez MD> 06/04/22 1338 [facility] Work Phone: 1(523) 971-619101-15-2023 Progress note Author Kt Pearson [facility] June 04, 2022 11:43am Note Date/Time June 04, 2022 1 1:43am [facility] [address] [place] [address] Neurology Progress Note Signed Patient: Heena Wang MR#: [id number] : 2005 Acct:[id number] Age/Sex: 17 / F Adm Date: 3 Loc: 3T Room: [address] [place] [address] Type: ADM IN Attending Dr: Ravi Zhang [...] signed by Kt Pearson DO> 06/04/22 1143 [facility] Work Phone: [phone] 994-391901-14-2023 Progress note Author Ravi Zhang [facility] June 03, 2022 6:07pm Note Date/Time June 03, 2022 6 :07pm [facility] [address] [place] [address] Hospitalist Progress Note Signed Patient: Heena Wang MR#: [id number] : 2005 Acct:[id number] Age/Sex: 17 / F Adm Date: 3 Loc: Room: [address] [place] [address] Type: ADM IN Attending Dr: Ravi Zhang [...] <Electronically signed by Ravi Zhang DO> 06/03/221806 [facility] Work Phone: [phone] 436-226701-14-2023 Consult note Author Kt Pearson [facility] June 03, 2022 12:02pm Note Date/Time June 03, 2022 1 0:02am [facility] [address] [place] [address] Neurology Consult Note Signed Patient: Heena Wang MR#: [id number] : 2005 Acct:[id number] Age/Sex: 17 / F Adm Date: 3 Loc: Room: [address] [place] [address] Type: ADM IN Attending Dr: Ravi Zhang DO Copies to: DO Morro Lopez APRN Kristopher L Lindbloom, DO~ HPI Consult Date: 06/03/22 Edger Liner: Kt Pearson DO [facility] Vaccinated for COVID-19?: Yes Social History Smoking [...] woman with history of scoliosis. Works at [employer]. After not being able to urinate for 8+ hours she went to get checked out at [facility]. She was also experiencing tingling paresthesias [...] <Electronically signed by Kt Pearson DO> 06/03/22 7543 [facility] Work Phone: 1([phone] 549-255201-13-2023 History and physical note Author Ravi Zhang [facility] June 02, 2022 9:44pm Note Date/Time June 02, 2022 9 :44pm [facility] [address] [place] [address] Hospitalist H&P Signed Patient: Heena Wang MR#: [id number] : 2005 Acct:[id number] Age/Sex: 17 / F Adm Date: 3 Loc: Room: [address] [place] [address] Type: ADM IN Attending Dr: Ravi Zhang [...] and equal bilaterally. Lower extremities: She describes unzk-ndn-forycri type paresthesias all the way from the [...] <Electronically signed by Ravi Zhang DO> 06/02/222143 [facility] Work Phone: 1([phone] 277-790201-04-2023 Hospital Discharge instructions Follow Up Care 05/24/2022 14:39:56 With:MORRO HAUSER CNP Address: [address] [place] [address]- When: Unknown [facility] 01-01-2023 History general Narrative [...] ingitis, urinary retention 06/02 - 06/09 2022 [facility] Other 01-01-2023 History general Narrative - Reported* [...] ingitis, urinary retention 06/02 - 06/09 2022 [facility] Other 08-18-2022 Evaluation note* Encounter Date Diagnosis [...] that were not corrected during review process. [facility] Other 07-07-2022 Evaluation note* Encounter Date Diagnosis Assessment Notes Treatment Notes Treatment Clinical Notes Nov, Exposure to COVID-19 virus (ICD-10 - Z20.822) [facility] Other 07-05-2022 Evaluation note* Encounter Date Diagnosis [...] continue medication, discontinuing medication or follow-up with GAS WELDER APPRENTICE.I did explain that there are other underlying pathologies that can cause painful cramping. This work-up and diagnosis would need to be done by GAS WELDER APPRENTICE especially due to her age.Patient verbalizes understanding and will let me know if she would like to continue the control or not. Nov, Other *Progress note was completed with the assistance of voice recognition software for dictation purposes. Please excuse any grammatical errors that were not corrected during review process. [facility] Other 04-26-2022 Evaluation note* Encounter Date Diagnosis [...] in 3 months for refills if desired. 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 Metronidazole adverse reaction acute Paresthesia of both lower extremities acute Primary vulvovaginal herpes simplex infection acute Vaginal discharge acute Vulvar ulceration acute [facility] Work Phone: Evaluation noteNo InformationNort [place] Other Evaluation noteNo assessment information available [facility] Work Phone: Evaluation note* Diagnosis Dysuria- Primary [...] anatomic survey [facility] Diagnosis Second trimester state, incidental 23 weeks gestation of Diabetes mellitus screening Screening for diabetes mellitus [facility] Diagnosis Second trimester state, incidental 27 weeks gestation of Low-lying placenta Hemorrhage from placenta previa, unspecified as to episode of care [facility] Diagnosis Third trimester state, incidental 30 weeks gestation of size inconsistent with dates HSV (herpes simplex virus) infection Herpes simplex without mention of complication [facility] Diagnosis Third trimester state, incidental 32 weeks gestation of Low-lying placenta Hemorrhage from placenta previa, unspecified as to episode of care [facility] Diagnosis Third trimester state, incidental 34 weeks gestation of [facility]* Diagnosis Third trimester (HHS-HCC) state, incidental [facility] Diagnosis Third trimester (HHS-HCC) state, incidental 37 weeks gestation of (HHS-HCC) [facility] Diagnosis Third trimester (HHS-HCC) state, incidental 38 weeks gestation of (HHS-HCC) [facility] Diagnosis Third trimester (HHS-HCC) state, incidental 39 weeks gestation of (HHS-HCC) [facility] N[facility] - Reported* Type Description Date Medical History scoliosis Surgical History tubes in ears twice 2004 Surgical History adenoidectomy 2004 [facility] Other History general Narrative - Reported* Type Description Date Medical History scoliosis Medical History seasonal allergies Surgical History tubes in ears twice 2004 Surgical History adenoidectomy 2004 [facility] Other Hospital Discharge instructions No data available for this section [facility] Additional Instructions Maintain and routine care to rodas. Maintain rodas until you see Dr. Gomez and she gives you further orders.[facility] Work Phone: Progress note No data available for this section [facility] Chief Complaint and Reason for Visit Chief [...] Referral Reason 07/26/22 @ 1:30pm NICOLE TRUJILLO [facility] SPECIFICALLY ; PATIENT'S MOTHER CLEARED WITH PROVIDER HERSELF PLEASE CONTACT MOTHER KEELY AT [phone] TO SCHEDULE Diagnosis 1 Anxiety (F41.9) Referral Organization [facility] Cathryn Llamas Referring Provider First Name Morro Referring Provider Last Name Talon Referring Provider Specialty Nurse Praccj garcia Referred Organization [facility] Referred Address [address] [place],[address] Referred Provider Specialty Psychiatry Referral Priority Routine Referral Appointment Date 2022-07-26 General Notes Tricia Borjas 023 02:12:31 PM >Received today and fax referral. 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 Operator Relationship Specialty Start Date End Date Morro Hauser MD [address] [place] [address] [place] [address] Primary Care Provider Family Medicine 01/11/23 Packing Tractor Machine Operator Relationship Specialty Start Date End Date Morro Hauser MD [address] [place] [address] [place] [address] Primary Care Provider Family Medicine 01/11/23 Packing Tractor Machine Operator Relationship Specialty Start Date End Date Morro Hauser MD [address] [place] [address] [place] [address] Primary Care Provider Family Medicine 01/11/23 Packing Tractor Machine Operator Relationship Specialty Start Date End Date Morro Hauser MD [address] [place] [address] [place] [address] Primary Care Provider Family Medicine 01/11/23 Packing Tractor Machine Operator Relationship Specialty Start Date End Date Morro Hauser MD [address] [place] [address] [place] [address] Primary Care Provider Family Medicine 01/11/23 Packing Tractor Machine Operator Relationship Specialty Start Date End Date Morro Hauser MD [address] [place] [address] [place] [address] Primary Care Provider Family Medicine 01/11/23 Packing Tractor Machine Operator Relationship Specialty Start Date End Date Morro Hauser MD [address] [place] [address] [place] [address] Primary Care Provider Family Medicine 01/11/23 Packing Tractor Machine Operator Relationship Specialty Start Date End Date Morro Hauser NP [address] [place] [address] [place] [address] Primary Care Provider Family Medicine 01/11/23 Packing Tractor Machine Operator Relationship Specialty Start Date End Date Morro Hauser NP [address] [place] [address] [place] [address] Primary Care Provider Family Medicine 01/11/23 Packing Tractor Machine Operator Relationship Specialty Start Date End Date Pepitocaleb STEVE [place] Primary Care Provider Family Medicine 01/11/23 Packing Tractor Machine Operator Relationship Specialty Start Date End Date Talon MorroSTEVE Primary Care Provider Family Medicine 01/11/23 Packing Tractor Machine Operator Relationship Specialty Start Date End Date Pepitocaleb STEVE [place] Primary Care Provider Family Medicine 01/11/23 Packing Tractor Machine Operator Relationship Specialty Start Date End Date AmarilisMorro estevez NP Primary Care Provider Family Medicine 01/11/23 Packing Tractor Machine Operator Relationship Specialty Start Date End Date Morro Hauser NP Primary Care Provider Family Medicine 01/11/23 Packing Tractor Machine Operator Relationship Specialty Start Date End Date PepitoMorro ellis NP Primary Care Provider Family Medicine 01/11/23 Packing Tractor Machine Operator Relationship Specialty Start Date End Date Morro Hauser NP Primary Care Provider Family Medicine 01/11/23 Packing Tractor Machine Operator Relationship Specialty Start Date End Date PepitoMorro ellis NP Primary Care Provider Family Medicine 01/11/23 Packing Tractor Machine Operator Relationship Specialty Start Date End Date PepitoMorro ellis DIRECTOR OF PROPERTY MANAGEMENT Primary Care Provider Family Medicine 01/11/23 Goals (unrecognized section and content) Goals may be documented in a n alternate section INFORMATION SOURCE (unrecogn ized section and content) DATE CREATED AUTHOR 07/08/2022 [facility] DATE CREATED AUTHOR AUTHOR'S ORGANIZ ATION 11/22/[address] [facility] DATE CREATED AUTHOR AUTHOR'S ORGANIZ ATION 05/18/2024 [facility] DATE CREATED AUTHOR AUTHOR'S ORGANIZ ATION 12/07/2024 [facility] FOR RECORDS PERTAINING TO PATIENTS WHO [...] BE BASED ON THE PRIMARY CLINICAL RECORDS. [facility] [employer] [facility]. provides no warranty or guarantee of the accuracy or completeness of information in this document.
[2024-12-08 19:33] LABS: Hematocrit 35.1 % (36.0-48.0); Hemoglobin 11.9 g/dL (12.0-16.0); Mean Corpuscular HGB Conc 33.9 g/dL (29.9-35.2); Mean Corpuscular Hemoglobin 29.7 pg (26.7-34.0); Mean Corpuscular Volume 87.5 fL (81.0-99.0); Platelet Count 209 10^3/uL (150-450); Red Blood Count 4.01 10^6/uL (4.20-5.40); White Blood Count 11.3 10^3/uL (4.0-11.0)
[2024-12-08] MEDS: 0.9 % SODIUM CHLORIDE 1,000 ML 125 ML IV (20:17)
[2024-12-08] MEDS: OXYTOCIN/0.9 % SODIUM CHLORIDE 10 UNITS/500 ML PLAST..BAG 6 UNIT IV (21:35)
[2024-12-09] VITALS (34 sets, daily range): BP systolic 112–181; BP diastolic 65–105; PULSE 70–142; TEMP 36.6–36.9
[2024-12-09] MEDS: 0.9 % SODIUM CHLORIDE 1,000 ML 125 ML IV (02:05)
[2024-12-09] MEDS: ROPIVACAINE HCL/PF 400 MG/200 ML PREMIX 10 MG EPIDURAL (02:22)
[2024-12-09] MEDS: LIDOCAINE HCL 1% 200 MG/20 ML MDV INJ (03:19)
[2024-12-09] MEDS: OXYTOCIN/0.9 % SODIUM CHLORIDE 20 UNITS/1,000 ML PLAST..BAG 125 UNIT IV (03:25)
--- NOTE | 2024-12-09 03:39 | PM.OBPRCVD ---
Procedure Intrapartal events: None Induction method: per pitocin protocol Delivery augmentation: rupture of membranes and pitocin Delivery monitor: external FHT and external uterine Route of delivery: Episiotomy Description: midline L&D Laceration Description: periurethral - 1st degree and perineal - 2nd degree Delivery repair: Vicryl Estimated blood loss (mL): 350 Anesthesia type: Epidural Disposition: floor Infant Delivery date: 12/09/24 Gender: female presentation: vertex Placental delivery description: Spontaneous cord description: 3 Vessels
[2024-12-09] MEDS: IBUPROFEN 600 MG TABLET PO ×3 (05:49→23:25)
[2024-12-09 05:53] LABS: Cannabinoid Screen Urine NEGATIVE (NEGATIVE); Methamphetamines Screen Urine NEGATIVE (NEGATIVE); Tricyclic Antidepressant Urine NEGATIVE (NEGATIVE)
[2024-12-09] MEDS: RHO(D) IMMUNE GLOBULIN 1,500 UNIT SYRINGE 1500 UNIT IV (09:55)
[2024-12-09] MEDS: GLYCERIN/WITCH HAZEL PADS 1 PAD TOPICAL (09:56)
[2024-12-09] MEDS: BENZOCAINE/MENTHOL 85 GRAM SPRAY BOTTLE 1 APPLIC TOPICAL (09:56)
[2024-12-10 06:42] LABS: Hematocrit 27.1 % (36.0-48.0); Hemoglobin 9.0 g/dL (12.0-16.0); Immature Granulocytes Abs Auto 0.30 10^3/uL (0.00-0.03); Immature Granulocytes Pct Auto 2.6 % (0.0-0.5); Lymphocytes Absolute Auto 3.6 10^3/uL (1.2-3.8); Mean Corpuscular HGB Conc 33.2 g/dL (29.9-35.2); Mean Corpuscular Hemoglobin 29.7 pg (26.7-34.0); Mean Corpuscular Volume 89.4 fL (81.0-99.0); Platelet Count 154 10^3/uL (150-450); Red Blood Count 3.03 10^6/uL (4.20-5.40); White Blood Count 11.5 10^3/uL (4.0-11.0)
[2024-12-10 07:45] VITALS: BP 126/86; PULSE 85; TEMP 36.9
[2024-12-10] MEDS: IBUPROFEN 600 MG TABLET PO ×3 (07:50→22:47)
[2024-12-10] MEDS: DOCUSATE SODIUM 100 MG CAPSULE PO ×2 (08:02→22:47)
--- NOTE | 2024-12-10 10:51 | PM.OBPN ---
OB - PN: Subj Subjective Patient comments: no complaints and pain well controlled status: doing well Exam Constitutional Vital Signs, click to edit/add: Last Vital Signs Temp 98.5 F 12/10/24 07:45 Pulse 85 12/10/24 07:45 Resp 14 12/10/24 07:45 BP 126/86 12/10/24 07:45 O2 Del Method Room Air 12/10/24 07:45 Documenting provider has reviewed patient's vital signs: yes Common normals: no apparent distress Respiratory Common normals: normal respiratory effort and clear to auscultation bilaterally Cardio Common normals: regular rate and regular rhythm GI Common normals: Normal to inspection, nondistended, normoactive bowel sounds present Extremity Common normals: no clubbing, cyanosis or edema and no calf tenderness Results Labs Labs: Short CBC 12/10/24 Range/Units 06:29 WBC 11.5 H (4.0-11.0) 10^3/uL Hgb 9.0 L (12.0-16.0) g/dL Hct 27.1 L (36.0-48.0) % Plt Count 154 (150-450) 10^3/uL OB - PN: A/P Plan - Vaginal Delivery day: 1 Plan: routine care Time Spent with Patient Time: Total time spent is greater than 50% in coordination of care (as documented) at patient's floor/unit and/or counseling patient: Total time spent with greater than 50% in coordination of care (as documented) at patient's floor/unit and/or counseling patient: less than 15 minutes
[2024-12-10 15:50] VITALS: TEMP 36.9
[2024-12-10 15:52] VITALS: BP 132/85; PULSE 101
[2024-12-10 22:52] VITALS: BP 130/85; PULSE 97
[2024-12-11 08:05] VITALS: TEMP 37.2
[2024-12-11] MEDS: DOCUSATE SODIUM 100 MG CAPSULE PO (08:05)
[2024-12-11] MEDS: IBUPROFEN 600 MG TABLET PO (08:05)
[2024-12-11 08:07] VITALS: BP 134/85; PULSE 96
--- NOTE | 2024-12-11 08:31 | PM.OBPN ---
OB - PN: Subj Subjective Patient comments: no complaints [place] status: doing well feeding status: exclusively Exam Constitutional Vital Signs, click to edit/add: Last Vital Signs Temp 98.5 F 12/10/24 15:50 Pulse 96 H 12/11/24 08:07 Resp 16 12/10/24 15:50 BP 134/85 12/11/24 08:07 O2 Del Method Room Air 12/10/24 22:55 Documenting provider has reviewed patient's vital signs: yes Common normals: no apparent distress, average body habitus, oriented x3, no limitations, healthy appearing, alert and well nourished General appearance: cooperative Orientation/consciousness: Yes awake, Yes oriented to person, Yes oriented to place and Yes oriented to time Eye General eye: normal appearance of both eyes Visual acuity: acuity normal Neck & C-Spine Common normals: full ROM General: normal visual inspection Lymph Lymphatic: no lymphadenopathy noted Chest Common normals: inspection of chest normal Respiratory Common normals: normal respiratory effort, no retractions, no use of accessory muscles, clear to auscultation bilaterally and percussion normal Effort & inspection: able to speak in complete sentences Cardio Common normals: regular rate and regular rhythm Rate: regular rate Rhythm: regular rhythm GI Common normals: Normal to inspection, nondistended, normoactive bowel sounds present, soft to palpation and non-tender Auscultation: normoactive bowel sounds Palpation: soft Common normals: no CVA tenderness Back & Pelvis Common normals: no CVA tenderness Extremity Common normals: normal to inspection Neuro Sensorium/orientation: awake, alert, oriented to person, oriented to place and oriented to time Psych Common normals: mental status grossly normal, thought process normal, cooperative, affect normal, speech normal, activity/motor behavior normal, denies hallucinations, denies homicidal ideation and denies suicidal ideation OB - PN: A/P Plan - Vaginal Delivery day: 2 Plan: discharge home Time Spent with Patient Time: Total time spent is greater than 50% in coordination of care (as documented) at patient's floor/unit and/or counseling patient: Total time spent with greater than 50% in coordination of care (as documented) at patient's floor/unit and/or counseling patient: less than 15 minutes
[2024-12-11 17:06] VITALS: BP 133/84; PULSE 110; TEMP 36.8
[2024-12-11] MEDS: GLYCERIN/WITCH HAZEL PADS 1 PAD TOPICAL (19:00)
== END 2024-12-11 19:10 | disposition home or self-care (01) | DRG 560 ==
PROVIDERS: Admitting Provider Obstetrics & Gynecology; PCP Nurse Practitioner Family; Visit Provider Obstetrics & Gynecology
DX: O26.893 Other specified pregnancy related conditions, third trimester (principal); Z67.41 Type O blood, Rh negative; O70.1 Second degree perineal laceration during delivery; Z37.0 Single live birth; Z3A.39 39 weeks gestation of pregnancy
CPT/HCPCS: 36415; 59050; 59410; 80307; 85025; 85027; 85461; 86850; 86900; 86901; J2300; J2405; J2791; J2795